=== PATIENT | female | born 1975 ===

== ENCOUNTER 2018-05-13 23:49 | Emergency (ER) | payer BC ==
--- NOTE | 2018-05-14 00:15 | ED ---
General Adult HPI - General Chief complaint: Chest Pain Stated complaint: CHEST PAIN Time Seen by Provider: 05/13/18 23:58 Source: patient, RN notes reviewed, old records reviewed Mode of arrival: wheelchair Limitations: no limitations - History of Present Illness Initial comments: 43-year-old female presents for evaluation of left-sided chest pain. Patient's pain has been present for approximately 12 hours. Pain began on the left lateral chest. She does report some associated dyspnea. Denies central chest pain. No radiating features. Pain is sharp in nature. Pain is worse with breathing. No cough. No fever or chills. No abdominal pain. No nausea vomiting. Patient has no history of CAD, DVT or PE. She is a current smoker. Family history of CAD. - Related Data Home Medications Medication Instructions Recorded Confirmed ALPRAZolam [Xanax] 0.5 mg PO HS PRN 05/13/18 05/13/18 Cetirizine HCl [Zyrtec] 10 mg PO DAILY 05/13/18 05/13/18 PARoxetine HCL [Paxil] 40 mg PO DAILY 05/13/18 05/13/18 Allergies Allergy/AdvReac Type Severity Reaction Status Date / Time No Known Allergies Allergy Verified 05/13/18 23:55 Review of Systems ROS Statement: Those systems with pertinent positive or pertinent negative responses have been documented in the HPI. ROS Other: All systems not noted in ROS Statement are negative. Past Medical History Past Medical History: No Reported History History of Any Multi-Drug Resistant Organisms: None Reported Past Surgical History: No Surgical Hx Reported Past Psychological History: No Psychological Hx Reported Smoking Status: Current every day smoker Past Alcohol Use History: None Reported Past Drug Use History: None Reported General Exam Limitations: no limitations General appearance: alert, in no apparent distress Head exam: Present: atraumatic Eye exam: Present: normal appearance ENT exam: Present: normal exam Neck exam: Present: normal inspection. Absent: tenderness Respiratory exam: Present: normal lung sounds bilaterally. Absent: respiratory distress, wheezes Cardiovascular Exam: Present: regular rate, normal rhythm GI/Abdominal exam: Present: soft. Absent: distended, tenderness Extremities exam: Present: normal inspection, normal capillary refill. Absent: pedal edema, calf tenderness Neurological exam: Present: alert, oriented X3, CN II-XII intact. Absent: motor sensory deficit Psychiatric exam: Present: normal affect, normal mood Skin exam: Present: warm, dry, intact. Absent: cyanosis, diaphoretic Course Vital Signs 05/13/18 05/14/18 05/14/18 23:53 00:05 00:47 Temperature 97.9 F Pulse Rate 100 96 87 Respiratory 20 18 22 Rate Blood Pressure 130/88 131/74 118/83 O2 Sat by Pulse 98 99 100 Oximetry 05/14/18 01:56 Temperature Pulse Rate 83 Respiratory 16 Rate Blood Pressure 108/69 O2 Sat by Pulse 100 Oximetry EKG Findings - EKG Comments: EKG Findings:: EKG:: Normal sinus rhythm, low voltage, no ST segment elevation or depression, rate of 93, MA interval 1:30, QRS duration 76, QTC 457. Medical Decision Making - Medical Decision Making 43-year-old female presenting with lateral chest pain, worse with deep breathing. Patient's pain is not typical of CAD. He has been constant over the past 12 hours. Workup in the emergency department reveals normal CBC, normal CMP, troponin is negative which is reassuring given the time course. Chest x-ray negative for acute cardiopulmonary disease. Patient's pain is pleuritic in nature, CT angiography is obtained to rule out pulmonary embolism. This is negative. These findings are discussed with the patient on reevaluation, at that time she is completely chest pain-free. She is offered observation for further evaluation of her chest but however she declines. She prefers outpatient follow-up. She will return with worsening or changing symptoms. - Lab Data Result diagrams: 05/14/18 00:00 05/14/18 00:00 Lab Results 05/14/18 05/14/18 05/14/18 Range/Units 00:00 00:00 00:00 WBC 9.9 (3.8-10.6) k/uL RBC 4.06 (3.80-5.40) m/uL Hgb 13.2 (11.4-16.0) gm/dL Hct 39.7 (34.0-46.0) % MCV 97.7 (80.0-100.0) fL MCH 32.4 (25.0-35.0) pg MCHC 33.1 (31.0-37.0) g/dL RDW 13.4 (11.5-15.5) % Plt Count 308 (150-450) k/uL Neutrophils % 54 % Lymphocytes % 33 % Monocytes % 8 % Eosinophils % 3 % Basophils % 1 % Neutrophils # 5.3 (1.3-7.7) k/uL Lymphocytes # 3.3 (1.0-4.8) k/uL Monocytes # 0.7 (0-1.0) k/uL Eosinophils # 0.3 (0-0.7) k/uL Basophils # 0.1 (0-0.2) k/uL PT (9.0-12.0) sec INR (<1.2) APTT (22.0-30.0) sec Sodium 143 (137-145) mmol/L Potassium 4.1 (3.5-5.1) mmol/L Chloride 111 H (98-107) mmol/L Carbon Dioxide 22 (22-30) mmol/L Anion Gap 10 mmol/L BUN 8 (7-17) mg/dL Creatinine 0.60 (0.52-1.04) mg/dL Est GFR (CKD-EPI)AfAm >90 (>60 ml/min/1.73 sqM) Est GFR (CKD-EPI)NonAf >90 (>60 ml/min/1.73 sqM) Glucose 86 (74-99) mg/dL Calcium 8.7 (8.4-10.2) mg/dL Magnesium 2.2 (1.6-2.3) mg/dL Total Bilirubin 0.2 (0.2-1.3) mg/dL AST 23 (14-36) U/L ALT 28 (9-52) U/L Alkaline Phosphatase 79 (38-126) U/L Total Creatine Kinase 58 (30-135) U/L CK-MB (CK-2) 0.3 (0.0-2.4) ng/mL CK-MB (CK-2) Rel Index 0.5 Troponin I <0.012 (0.000-0.034) ng/mL NT-Pro-B Natriuret Pep pg/mL Total Protein 7.0 (6.3-8.2) g/dL Albumin 4.0 (3.5-5.0) g/dL Lipase 148 (23-300) U/L HCG, Qual 05/14/18 05/14/18 05/14/18 Range/Units 00:00 00:00 00:00 WBC (3.8-10.6) k/uL RBC (3.80-5.40) m/uL Hgb (11.4-16.0) gm/dL Hct (34.0-46.0) % MCV (80.0-100.0) fL MCH (25.0-35.0) pg MCHC (31.0-37.0) g/dL RDW (11.5-15.5) % Plt Count (150-450) k/uL Neutrophils % % Lymphocytes % % Monocytes % % Eosinophils % % Basophils % % Neutrophils # (1.3-7.7) k/uL Lymphocytes # (1.0-4.8) k/uL Monocytes # (0-1.0) k/uL Eosinophils # (0-0.7) k/uL Basophils # (0-0.2) k/uL PT 9.8 (9.0-12.0) sec INR 1.0 (<1.2) APTT 24.4 (22.0-30.0) sec Sodium (137-145) mmol/L Potassium (3.5-5.1) mmol/L Chloride (98-107) mmol/L Carbon Dioxide (22-30) mmol/L Anion Gap mmol/L BUN (7-17) mg/dL Creatinine (0.52-1.04) mg/dL Est GFR (CKD-EPI)AfAm (>60 ml/min/1.73 sqM) Est GFR (CKD-EPI)NonAf (>60 ml/min/1.73 sqM) Glucose (74-99) mg/dL Calcium (8.4-10.2) mg/dL Magnesium (1.6-2.3) mg/dL Total Bilirubin (0.2-1.3) mg/dL AST (14-36) U/L ALT (9-52) U/L Alkaline Phosphatase (38-126) U/L Total Creatine Kinase (30-135) U/L CK-MB (CK-2) (0.0-2.4) ng/mL CK-MB (CK-2) Rel Index Troponin I (0.000-0.034) ng/mL NT-Pro-B Natriuret Pep 384 pg/mL Total Protein (6.3-8.2) g/dL Albumin (3.5-5.0) g/dL Lipase (23-300) U/L HCG, Qual Not Detected Disposition Clinical Impression: Chest pain Disposition: HOME SELF-CARE Condition: Stable Instructions: Chest Pain (ED) Is patient prescribed a controlled substance at d/c from ED?: No Referrals: Giancarlo Pham MD [Primary Care Provider] - 1-2 days Time of Disposition: 02:05
[2018-05-14 00:36] LABS: Basophils # (A) 0.1 k/uL (0-0.2); Basophils % (A) 1 %; Eosinophils # (A) 0.3 k/uL (0-0.7); Eosinophils % (A) 3 %; HCT 39.7 % (34.0-46.0); HGB 13.2 gm/dL (11.4-16.0); Lymphocytes # (A) 3.3 k/uL (1.0-4.8); Lymphocytes % (A) 33 %; MCH 32.4 pg (25.0-35.0); MCHC 33.1 g/dL (31.0-37.0); MCV 97.7 fL (80.0-100.0); Mean Platelet Volume 7.5; Monocytes # (A) 0.7 k/uL (0-1.0); Monocytes % (A) 8 %; Neutrophils # (A) 5.3 k/uL (1.3-7.7); Neutrophils % (A) 54 %; Platelet Count 308 k/uL (150-450); RBC 4.06 m/uL (3.80-5.40); RDW 13.4 % (11.5-15.5); WBC 9.9 k/uL (3.8-10.6)
[2018-05-14] MEDS ORDERED: KETOROLAC 30 MG/ML 1 ML VIAL IVP STA (00:39)
[2018-05-14 00:41] LABS: Partial Thromboplastin Time 24.4 sec (22.0-30.0); Prothrombin Time 9.8 sec (9.0-12.0)
[2018-05-14 00:45] LABS: ALT 28 U/L (9-52); AST 23 U/L (14-36); Alkaline Phosphatase 79 U/L (38-126); Anion Gap 10 mmol/L; Blood Urea Nitrogen 8 mg/dL (7-17); Calcium 8.7 mg/dL (8.4-10.2); Carbon Dioxide 22 mmol/L (22-30); Chloride 111 mmol/L (98-107); Glucose 86 mg/dL (74-99); Lipase 148 U/L (23-300); Magnesium 2.2 mg/dL (1.6-2.3); Potassium 4.1 mmol/L (3.5-5.1); Sodium 143 mmol/L (137-145); Total Bilirubin 0.2 mg/dL (0.2-1.3)
--- NOTE | 2018-05-14 00:48 | XR ---
EXAMINATION TYPE: XR chest 2V DATE OF EXAM: 05/14/2018 COMPARISON: NONE HISTORY: Chest pain TECHNIQUE: Frontal and lateral views of the chest are obtained. FINDINGS: Heart and mediastinum are normal. Lungs are clear. Diaphragm is normal. Bony thorax appear s normal. IMPRESSION: Normal chest. No change.
[2018-05-14 00:58] LABS: Creatine Kinase 58 U/L (30-135)
[2018-05-14 01:12] LABS: Creatine Kinase MB 0.3 ng/mL (0.0-2.4); Troponin I <0.012 ng/mL (0.000-0.034)
--- NOTE | 2018-05-14 01:54 | CT ---
EXAMINATION TYPE: CT angio chest DATE OF EXAM: 05/14/2018 1:47 AM COMPARISON: None HISTORY: R/O PE, Left side Chest pain CT DLP: 204.10 mGycm Automated exposure control for dose reduction was used. CONTRAST: CTA scan of the thorax is performed with IV Contrast, patient injected with 60 mL of Isovue 370, pulm onary embolism protocol. There are 3-D post processed images.. FINDINGS: Lungs are clear of infiltrate. There is no pleural effusion. There is no pericardial effusion. Heart size is normal. Thoracic aorta appears normal. There is no evidence of aneurysm or dissection. There is normal contrast opacification of the pulmonary arteries. There are no filling defects. There is no mediastinal adenopathy. The bony thorax appears intact. IMPRESSION: NORMAL EXAM. NO EVIDENCE OF PULMONARY EMBOLISM.
[2018-05-14 01:57] VITALS: BP 108/69; PULSE 83; RESP 16
[2018-05-14 02:21] VITALS: TEMP 97.8
== END 2018-05-14 02:20 | disposition home or self-care (01) ==
LOC: SUPCPDRO 23:49 → EC 23:49
DX: R07.9 Chest pain, unspecified (principal); R06.00 Dyspnea, unspecified; F17.200 Nicotine dependence, unspecified, uncomplicated; Z82.49 Family history of ischemic heart disease and other diseases of the circulatory system
CPT/HCPCS: 36415; 93005; 83880; 80053; 82550; 82553; 83690; 83735; 84484; 85025; 85610; 85730; 84703; 71046; 71275; 99285; 96374; J1885; Q9967

== ENCOUNTER → 2019-05-15 | Outpatient (CLI) | payer BC ==
[2019-05-15 11:21] LABS: HCT 47.4 % (34.0-46.0); HGB 15.2 gm/dL (11.4-16.0); MCH 32.4 pg (25.0-35.0); MCHC 32.1 g/dL (31.0-37.0); MCV 101.1 fL (80.0-100.0); Macrocytosis Slight; Mean Platelet Volume 8.7; Platelet Count 273 k/uL (150-450); RBC 4.69 m/uL (3.80-5.40); RDW 14.4 % (11.5-15.5); WBC 9.1 k/uL (3.8-10.6)
[2019-05-15 11:42] LABS: INR 0.9 (<1.2); Prothrombin Time 10.1 sec (9.0-12.0)
[2019-05-15 15:32] LABS: Iron Saturation 37.65 (12.00-45.00)
[2019-05-15 15:52] LABS: Albumin 3.8 g/dL (3.80-4.90); Albumin/Globulin Ratio 1.58 (1.60-3.17); Bilirubin, Conjugated 0.3 mg/dL (0.20-0.40); Bilirubin,Unconjugated 0.5 mg/dL; Globulin 2.4 g/dL (1.6-3.3); Total Bilirubin 0.8 mg/dL (0.2-1.2); Total Protein 6.2 g/dL (6.2-8.2)
[2019-05-15 15:53] LABS: Protein, Total 6.4 g/dL (6.2-8.2)
[2019-05-16 10:24] LABS: Albumin 3.12 g/dL (3.80-4.90); Gamma Globulin 1.19 g/dL (0.70-1.50)
[2019-05-16 11:53] LABS: Ceruloplasmin 38.8 mg/dL (20.0-60.0)
== END | disposition home or self-care (01) ==
LOC: LABWHC1 10:25
PROVIDERS: ATTEND Physician Assistant
DX: R74.8 Abnormal levels of other serum enzymes (principal)
CPT/HCPCS: 36415; 80076; 82103; 82390; 82728; 83516; 83540; 83550; 84165; 85027; 85610; 86038

== ENCOUNTER 2019-08-05 16:57 | Inpatient (IN) | payer BC ==
[2019-08-05] MEDS ORDERED: SODIUM CHLORIDE 0.9% 500 ML 500 ML IV ONE (17:58)
[2019-08-05] MEDS ORDERED: ONDANSETRON 4 MG/2 ML VIAL IVP STA ×2 (17:58→19:07)
[2019-08-05] MEDS ORDERED: LORazepam 2 MG/ML INJ IV STA (17:58)
[2019-08-05] MEDS ORDERED: SODIUM CHLORIDE 0.9% 1,000 ML IV ONE ×2 (17:58→20:52)
--- NOTE | 2019-08-05 18:01 | ED ---
General Adult HPI - General Chief complaint: Abdominal Pain Stated complaint: Stomach pain/vomiting Time Seen by Provider: 08/05/19 17:00 Source: patient, RN notes reviewed, old records reviewed Mode of arrival: ambulatory Limitations: no limitations - History of Present Illness Initial comments: This is a 44-year-old female who presents to the emergency department complaining of abdominal pain in the epigastric region and vomiting since last night at 5:00. Patient said the vomiting started first and then the pain came and the pain is been pretty persistent since per patient denies any other abdominal pain patient denies any chest pain difficult breathing shortest breath per patient denies any fever chills. Patient denies any back pain. Patient denies any dysuria hematuria urinary frequency. Patient denies any diarrhea. Patient also admits that she is a binge drinker. Patient states that she drinks a lot of wine when she does drink. - Related Data Home Medications Medication Instructions Recorded Confirmed ALPRAZolam [Xanax] 0.5 mg PO HS PRN 05/13/18 05/13/18 Cetirizine HCl [Zyrtec] 10 mg PO DAILY 05/13/18 05/13/18 PARoxetine HCL [Paxil] 40 mg PO DAILY 05/13/18 05/13/18 Allergies Allergy/AdvReac Type Severity Reaction Status Date / Time No Known Allergies Allergy Verified 08/05/19 17:01 Review of Systems ROS Statement: Those systems with pertinent positive or pertinent negative responses have been documented in the HPI. ROS Other: All systems not noted in ROS Statement are negative. Past Medical History Past Medical History: No Reported History History of Any Multi-Drug Resistant Organisms: None Reported Past Surgical History: No Surgical Hx Reported Past Psychological History: No Psychological Hx Reported Smoking Status: Current every day smoker Past Alcohol Use History: Occasional Past Drug Use History: None Reported General Exam - General Exam Comments Initial Comments: GENERAL: Patient is well-developed and well-nourished. Patient is nontoxic and well- hydrated and is in mild distress. ENT: Neck is soft and supple. No significant lymphadenopathy is noted. Oropharynx is clear. Dry mucous membranes. Neck has full range of motion without eliciting any pain. EYES: The sclera were anicteric and conjunctiva were pink and moist. Extraocular movements were intact and pupils were equal round and reactive to light. Eyelids were unremarkable. PULMONARY: Unlabored respirations. Good breath sounds bilaterally. No audible rales rhonchi or wheezing was noted. CARDIOVASCULAR: Patient is tachycardic at about 120 beats a minute. ABDOMEN: Epigastric abdominal pain on palpation SKIN: Skin is clear with no lesions or rashes and otherwise unremarkable. NEUROLOGIC: Patient is alert and oriented x3. Cranial nerves II through XII are grossly intact. Motor and sensory are also intact. Normal speech, volume and content. Symmetrical smile. MUSCULOSKELETAL: Normal extremities with adequate strength and full range of motion. No lower extremity swelling or edema. No calf tenderness. LYMPHATICS: No significant lymphadenopathy is noted PSYCHIATRIC: Normal psychiatric evaluation. Limitations: no limitations Course Vital Signs 08/05/19 08/05/19 08/05/19 17:01 18:12 19:00 Temperature 97.4 F L Pulse Rate 127 H 100 117 H Respiratory 18 18 20 Rate Blood Pressure 187/128 207/132 O2 Sat by Pulse 98 97 Oximetry 08/05/19 08/05/19 08/05/19 19:32 19:57 20:38 Temperature Pulse Rate 113 H 95 Respiratory 18 18 Rate Blood Pressure 202/129 192/122 185/135 O2 Sat by Pulse 100 100 Oximetry 08/05/19 08/05/19 08/05/19 20:47 20:57 21:04 Temperature Pulse Rate 100 98 Respiratory 18 18 Rate Blood Pressure 176/116 172/114 154/103 O2 Sat by Pulse 96 97 Oximetry Medical Decision Making - Medical Decision Making KUB shows no acute abnormality. Ultrasound showed no signs of cholecystitis. I gave the patient 20 of hydralazine 10 labetalol and did bring the blood pressure down a little bit. I called Dr. Raya she agreed to admit the patient she wanted hydralazine 20 mg every 4 hours when necessary for blood pressure greater than 180 systolic greater than 110. Dr. Bowman stated she will check in with the patient's blood pressure later this evening on the floor - Lab Data Result diagrams: 08/05/19 17:43 08/05/19 17:43 Lab Results 08/05/19 08/05/19 Range/Units 17:43 17:43 WBC 23.0 H (3.8-10.6) k/uL RBC 5.18 (3.80-5.40) m/uL Hgb 18.1 H (11.4-16.0) gm/dL Hct 53.6 H (34.0-46.0) % MCV 103.6 H (80.0-100.0) fL MCH 34.9 (25.0-35.0) pg MCHC 33.7 (31.0-37.0) g/dL RDW 16.8 H (11.5-15.5) % Plt Count 205 (150-450) k/uL Neutrophils % 95 % Lymphocytes % 2 % Monocytes % 2 % Eosinophils % 0 % Basophils % 0 % Neutrophils # 21.8 H (1.3-7.7) k/uL Lymphocytes # 0.5 L (1.0-4.8) k/uL Monocytes # 0.5 (0-1.0) k/uL Eosinophils # 0.0 (0-0.7) k/uL Basophils # 0.0 (0-0.2) k/uL Anisocytosis Slight Macrocytosis Moderate Sodium 137 (137-145) mmol/L Potassium 4.0 (3.5-5.1) mmol/L Chloride 99 (98-107) mmol/L Carbon Dioxide 16 L (22-30) mmol/L Anion Gap 22 mmol/L BUN 7 (7-17) mg/dL Creatinine 0.71 (0.52-1.04) mg/dL Est GFR (CKD-EPI)AfAm >90 (>60 ml/min/1.73 sqM) Est GFR (CKD-EPI)NonAf >90 (>60 ml/min/1.73 sqM) Glucose 181 H (74-99) mg/dL Calcium 9.4 (8.4-10.2) mg/dL Total Bilirubin 1.3 (0.2-1.3) mg/dL AST 117 H (14-36) U/L ALT 59 H (9-52) U/L Alkaline Phosphatase 174 H (38-126) U/L Total Protein 7.5 (6.3-8.2) g/dL Albumin 4.1 (3.5-5.0) g/dL Amylase 675 H* (30-110) U/L Lipase 9339 H (23-300) U/L Disposition Clinical Impression: Acute pancreatitis, Hypertensive urgency Disposition: ADMITTED IP TO THIS [facility] Time of Disposition: 20:49
[2019-08-05 18:21] LABS: Anisocytosis Slight; Basophils % (A) 0 %; Eosinophils % (A) 0 %; HCT 53.6 % (34.0-46.0); HGB 18.1 gm/dL (11.4-16.0); Lymphocytes # (A) 0.5 k/uL (1.0-4.8); Lymphocytes % (A) 2 %; MCH 34.9 pg (25.0-35.0); MCHC 33.7 g/dL (31.0-37.0); MCV 103.6 fL (80.0-100.0); Macrocytosis Moderate; Mean Platelet Volume 7.9; Monocytes # (A) 0.5 k/uL (0-1.0); Monocytes % (A) 2 %; Neutrophils # (A) 21.8 k/uL (1.3-7.7); Neutrophils % (A) 95 %; Platelet Count 205 k/uL (150-450); RBC 5.18 m/uL (3.80-5.40); RDW 16.8 % (11.5-15.5)
--- NOTE | 2019-08-05 18:22 | XR ---
EXAMINATION TYPE: XR KUB DATE OF EXAM: 08/05/2019 COMPARISON: NONE HISTORY: Pain TECHNIQUE: Single supine KUB image of the abdomen is obtained FINDINGS: Small bowel demonstrates no evidence for dilatation or air fluid levels. Gas and fecal material is seen in non-distended colon. No convincing evidence for pneumoperitoneum. No unusual calcifications. The lung bases are clear. The osseous structures are intact. IMPRESSION: 1. Overall nonobstructive bowel gas pattern.
[2019-08-05 18:28] LABS: ALT 59 U/L (9-52); AST 117 U/L (14-36); African American GFR (CKD) >90 (>60 ml/min/1.73 sqM); Albumin 4.1 g/dL (3.5-5.0); Alkaline Phosphatase 174 U/L (38-126); Anion Gap 22 mmol/L; Blood Urea Nitrogen 7 mg/dL (7-17); Calcium 9.4 mg/dL (8.4-10.2); Carbon Dioxide 16 mmol/L (22-30); Chloride 99 mmol/L (98-107); Glucose 181 mg/dL (74-99); Non-African American GFR(CKD) >90 (>60 ml/min/1.73 sqM); Sodium 137 mmol/L (137-145); Total Bilirubin 1.3 mg/dL (0.2-1.3); Total Protein 7.5 g/dL (6.3-8.2)
[2019-08-05 18:59] LABS: Amylase 675 U/L (30-110)
[2019-08-05] MEDS ORDERED: LABETALOL 5 MG/ML VIAL MDV IVP STA ×2 (19:04→20:59)
[2019-08-05] MEDS ORDERED: HYDROmorphone 1 MG/ML 1 ML SYRINGE IVP STA (19:05)
[2019-08-05] MEDS ORDERED: SODIUM CHLORIDE 0.9% 1,000 ML IV STA (19:05)
[2019-08-05] MEDS ORDERED: hydrALAZINE HCL 20 MG/ML 1 ML VIAL IVP STA ×2 (20:07→20:41)
--- NOTE | 2019-08-05 20:42 | US ---
EXAMINATION TYPE: US gallbladder DATE OF EXAM: 08/05/2019 COMPARISON: NONE CLINICAL HISTORY: Pancreatitis . Pancreatitis. Nausea, diarrhea. EXAM MEASUREMENTS: Liver Length: 15.3 cm Gallbladder Wall: 0.20 cm CBD: 0.44 cm Right Kidney: 9.5 x 4.7 x 3.8 cm Limited due to gas. Pancreas: Limited evaluation. Appears heterogeneous. Liver: Difficult to penetrate. Appears to have an increased echogenicity. Gallbladder: Measures 6.3 cm in length and 3.4 cm in width. Appears anechoic. Folds seen. Evidence for sonographic Hinojosa's sign: no CBD: appears wnl Right Kidney: No hydronephrosis or masses seen IMPRESSION: Hepatic steatosis. Limited evaluation of the pancreas.
[2019-08-05] MEDS ORDERED: HYDROmorphone 0.5 MG/0.5 ML SYRINGE IVP PRN (20:53)
[2019-08-05] MEDS ORDERED: ONDANSETRON 4 MG/2 ML VIAL IVP PRN (20:53)
[2019-08-05] MEDS ORDERED: hydrALAZINE HCL 20 MG/ML 1 ML VIAL IVP PRN (21:00)
[2019-08-05 22:23] VITALS: BP 165/116; PULSE 108; RESP 20; TEMP 98; BMI 21.0
== END 2019-08-05 22:52 | disposition left against medical advice (07) | DRG 440 ==
LOC: EC 16:57 → 3SCARD 20:53
PROVIDERS: ADMIT Family Medicine; ATTEND Family Medicine
DX: K85.90 Acute pancreatitis without necrosis or infection, unspecified (principal); F17.200 Nicotine dependence, unspecified, uncomplicated; Z71.6 Tobacco abuse counseling; Z79.899 Other long term (current) drug therapy; I16.0 Hypertensive urgency
CPT/HCPCS: 36415; 74018; 76705; 80053; 82150; 83690; 85025; 96361; 96374; 96375; 96376; 99285

== ENCOUNTER 2019-08-07 10:08 | Inpatient (IN) | payer BC ==
[2019-08-07] MEDS ORDERED: ONDANSETRON 4 MG/2 ML VIAL IVP STA (10:27)
[2019-08-07] MEDS ORDERED: MORPHINE SULFATE 4 MG/ML SYRINGE IV STA (10:27)
[2019-08-07] MEDS ORDERED: SODIUM CHLORIDE 0.9% 1,000 ML IV STA (10:39)
--- NOTE | 2019-08-07 10:40 | ED ---
General Adult HPI - General Chief complaint: Abdominal Pain Stated complaint: abd pain,vomiting,pancreatitis Time Seen by Provider: 08/07/19 10:19 Source: patient Mode of arrival: ambulatory Limitations: no limitations - History of Present Illness Initial comments: Dictation was produced using [employer] dictation software. please excuse any grammatical, word or spelling errors. Chief Complaint: 44-year-old female presents with abdominal pain. History of Present Illness: She is a 44-year-old female she presents today with abdominal pain. Patient was recently admitted for acute pancreatitis. She had a lipase level of 9000. Patient signed out AGAINST MEDICAL ADVICE because she could not find somebody to watch her little dog. She finally was able to find a deep submergence vehicle crewmember for her pet. She decided come back to the emergency department to be admitted again. Patient states since she signed out AGAINST MEDICAL ADVICE her symptoms have gotten worse. Patient states she's recovering alcoholic. She recently began drinking heavily. Patient has any fever, chills or night sweats. She states pain is located to the entire abdomen worse in the epigastric and suprapubic area. No diarrhea. Patient also feels nauseated. Patient has been eating and drinking at home. The ROS documented in this emergency department record has been reviewed and confirmed by me. Those systems with pertinent positive or negative responses have been documented in the HPI. All other systems are other negative and/or noncontributory. PHYSICAL EXAM: General Impression: Alert and oriented x3, acute distress secondary to pain HEENT: Normocephalic atraumatic, extra-ocular movements intact, pupils equal and reactive to light bilaterally, mucous membranes moist. Cardiovascular: Heart regular rate and rhythm, S1&S2 audible, no murmurs, rubs or gallops Chest: Lungs clear to auscultation bilaterally, no rhonchi, no wheeze, no rales Abdomen: Diffuse abdominal tenderness to palpation Musculoskeletal: Pulses present and equal in all extremities, no peripheral edema Motor: no focal deficits noted Neurological: CN II-XII grossly intact, no focal motor or sensory deficits noted Skin: Intact with no visualized rashes Psych: Normal affect and mood ED course: 44 yo Female presents emergency department for abdominal pain. As upon arrival shows heart rate of 140, pulse vital signs within acceptable limits. Return evaluation obtained. Leukocytosis of 23.5, mild thrombocytopenia 128. Has a macrocytosis. Blood gases shows pH of 7.48, sodium 134, glucose 117. Bilirubin 2.4. Lipase level of 2000 1448. Serum alcohol is negative. Given patient's degree of symptoms we will have patient admitted. Discussed patient case Dr. Bowman who is agreeable for patient care. At this point we will not repeat ultrasound given that she just had one 2 days ago. Patient be admitted with consult to gastroenterology. Tachycardia is improved with intravenous fluids and IV analgesia. EKG interpretation: Ventricular rate 118, sinus tachycardia, CT interval 126, QRS 74, QTC 484. No CT prolongation, no QTC prolongation, no ST or T-wave duran ges noted. Overall, this EKG is unremarkable - Related Data Home Medications Medication Instructions Recorded Confirmed Cetirizine HCl [Zyrtec] 10 mg PO DAILY 05/13/18 08/07/19 PARoxetine HCL [Paxil] 40 mg PO DAILY 05/13/18 08/07/19 ALPRAZolam [Xanax] 1 mg PO DAILY PRN 08/05/19 08/07/19 Ibuprofen 200 mg PO Q6H 08/07/19 08/07/19 Allergies Allergy/AdvReac Type Severity Reaction Status Date / Time No Known Allergies Allergy Verified 08/07/19 11:41 Review of Systems ROS Statement: Those systems with pertinent positive or pertinent negative responses have been documented in the HPI. ROS Other: All systems not noted in ROS Statement are negative. Past Medical History Past Medical History: No Reported History History of Any Multi-Drug Resistant Organisms: None Reported Past Surgical History: No Surgical Hx Reported Past Psychological History: Anxiety Smoking Status: Current every day smoker Past Alcohol Use History: Occasional Past Drug Use History: None Reported General Exam Limitations: no limitations Course Vital Signs 08/07/19 08/07/19 10:15 11:13 Temperature 97.3 F L Pulse Rate 140 H 125 H Respiratory 20 20 Rate Blood Pressure 163/107 179/130 O2 Sat by Pulse 100 96 Oximetry Medical Decision Making - Lab Data Result diagrams: 08/07/19 10:55 08/07/19 10:55 Lab Results 08/07/19 08/07/19 08/07/19 Range/Units 10:55 10:55 10:55 WBC 23.5 H (3.8-10.6) k/uL RBC 4.34 (3.80-5.40) m/uL Hgb 15.6 (11.4-16.0) gm/dL Hct 44.9 (34.0-46.0) % MCV 103.7 H (80.0-100.0) fL MCH 35.9 H (25.0-35.0) pg MCHC 34.6 (31.0-37.0) g/dL RDW 16.9 H (11.5-15.5) % Plt Count 128 L (150-450) k/uL Neutrophils % 90 % Lymphocytes % 4 % Monocytes % 3 % Eosinophils % 1 % Basophils % 1 % Neutrophils # 21.2 H (1.3-7.7) k/uL Lymphocytes # 0.8 L (1.0-4.8) k/uL Monocytes # 0.8 (0-1.0) k/uL Eosinophils # 0.2 (0-0.7) k/uL Basophils # 0.2 (0-0.2) k/uL Anisocytosis Slight Macrocytosis Moderate VBG pH 7.48 H (7.31-7.41) VBG pCO2 34 L (37-51) mmHg VBG HCO3 25 (24-28) mmol/L Sodium 134 L (137-145) mmol/L Potassium 4.1 (3.5-5.1) mmol/L Chloride 100 (98-107) mmol/L Carbon Dioxide 25 (22-30) mmol/L Anion Gap 9 mmol/L BUN 17 (7-17) mg/dL Creatinine 0.76 (0.52-1.04) mg/dL Est GFR (CKD-EPI)AfAm >90 (>60 ml/min/1.73 sqM) Est GFR (CKD-EPI)NonAf >90 (>60 ml/min/1.73 sqM) Glucose 117 H (74-99) mg/dL Calcium 8.4 (8.4-10.2) mg/dL Magnesium 1.6 (1.6-2.3) mg/dL Total Bilirubin 2.4 H (0.2-1.3) mg/dL AST 88 H (14-36) U/L ALT 51 (9-52) U/L Alkaline Phosphatase 98 (38-126) U/L Lactate Dehydrogenase 3051 H (313-618) U/L Total Protein 6.3 (6.3-8.2) g/dL Albumin 3.1 L (3.5-5.0) g/dL Lipase 2448 H (23-300) U/L Serum Alcohol <10 mg/dL Disposition Clinical Impression: Pancreatitis Disposition: ADMITTED IP TO THIS HOSP Condition: Fair Referrals: Ben Gerard NPC [Primary Care Provider] - 1-2 days Decision Time: 12:25
[2019-08-07 11:23] LABS: VBG PH 7.48 (7.31-7.41)
[2019-08-07 11:28] LABS: Anisocytosis Slight; Basophils # (A) 0.2 k/uL (0-0.2); Basophils % (A) 1 %; Eosinophils # (A) 0.2 k/uL (0-0.7); Eosinophils % (A) 1 %; HCT 44.9 % (34.0-46.0); HGB 15.6 gm/dL (11.4-16.0); Lymphocytes # (A) 0.8 k/uL (1.0-4.8); Lymphocytes % (A) 4 %; MCH 35.9 pg (25.0-35.0); MCHC 34.6 g/dL (31.0-37.0); MCV 103.7 fL (80.0-100.0); Macrocytosis Moderate; Mean Platelet Volume 8.6; Monocytes # (A) 0.8 k/uL (0-1.0); Monocytes % (A) 3 %; Neutrophils # (A) 21.2 k/uL (1.3-7.7); Neutrophils % (A) 90 %; Platelet Count 128 k/uL (150-450); RBC 4.34 m/uL (3.80-5.40); RDW 16.9 % (11.5-15.5); WBC 23.5 k/uL (3.8-10.6)
[2019-08-07 11:41] LABS: ALT 51 U/L (9-52); AST 88 U/L (14-36); African American GFR (CKD) >90 (>60 ml/min/1.73 sqM); Albumin 3.1 g/dL (3.5-5.0); Alcohol <10 mg/dL; Alkaline Phosphatase 98 U/L (38-126); Anion Gap 9 mmol/L; Blood Urea Nitrogen 17 mg/dL (7-17); Calcium 8.4 mg/dL (8.4-10.2); Carbon Dioxide 25 mmol/L (22-30); Chloride 100 mmol/L (98-107); Glucose 117 mg/dL (74-99); Magnesium 1.6 mg/dL (1.6-2.3); Non-African American GFR(CKD) >90 (>60 ml/min/1.73 sqM); Potassium 4.1 mmol/L (3.5-5.1); Sodium 134 mmol/L (137-145); Total Bilirubin 2.4 mg/dL (0.2-1.3); Total Protein 6.3 g/dL (6.3-8.2)
--- NOTE | 2019-08-07 11:41 | XR ---
EXAMINATION TYPE: XR abdomen acute w cxr DATE OF EXAM: 08/07/2019 COMPARISON: 08/05/2019 HISTORY: Abdominal pain, nausea and vomiting TECHNIQUE: Supine, upright, and left side down lateral decubitus views of the abdomen are obtained. FINDINGS: There is bilateral consolidation small effusion. No interstitial edema or pneumothorax. Hea rt size is normal. There are some prominent small bowel loops in the mid abdomen. Air-fluid levels are noted. Osseous st ructures intact. No suspicious calcifications. IMPRESSION: 1. Bilateral lower lobe infiltrate and small right effusion. 2. Nonspecific abdomen correlate for ileus, enteritis or partial obstruction.
[2019-08-07 12:10] LABS: LDH 3051 U/L (313-618)
[2019-08-07] MEDS ORDERED: NALOXONE 0.4 MG/ML 1 ML VIAL IV PRN (12:23)
[2019-08-07] MEDS ORDERED: ONDANSETRON 4 MG/2 ML VIAL IVP PRN (12:23)
[2019-08-07] MEDS ORDERED: MORPHINE SULFATE 4 MG/ML SYRINGE IV PRN (12:23)
[2019-08-07] MEDS ORDERED: SODIUM CHLORIDE 0.9% 1,000 ML IV SCH (12:30)
[2019-08-07] MEDS ORDERED: LABETALOL 5 MG/ML VIAL MDV IVP STA (12:41)
[2019-08-07] MEDS ORDERED: HYDROmorphone 1 MG/ML 1 ML SYRINGE IVP PRN (13:05)
[2019-08-07] MEDS: ENALAPRILAT 1.25 MG/ML 1 ML VIAL IVP PRN (14:57)
[2019-08-07] MEDS ORDERED: LORazepam 2 MG/ML INJ IV PRN ×2 (15:02)
[2019-08-07] MEDS ORDERED: THIAMINE 100 MG/ML 2 ML VIAL IM STA (15:02)
[2019-08-07] MEDS: THIAMINE 100 MG TAB PO SCH (15:26)
[2019-08-07] MEDS: SODIUM CHLORIDE 0.9% 1,000 ML IV SCH ×2 (15:43→20:33)
--- NOTE | 2019-08-07 15:49 | P.HPIM ---
<Hannah Aly A - Last Filed: 08/07/19 15:32> History of Present Illness H&P Date: 08/07/19 Chief Complaint: abdominal pain This is a 44-year-old female patient of Juan Gerard NP with past medical history of seasonal ALLERGIES, recurrent depression, generalized anxiety disorder, alcohol abuse. Patient initially presented to [facility] on August 05 with abdominal pain and was diagnosed with pancreatitis but due to dog being home by itself, patient refused to stay. Patient return on August 07. Patient states that she had sudden onset Monday of abdominal pain with vomiting bile. Abdomen is painful across the lowers bilateral sides. She gives history of having alcohol abuse and was sober for 7 years it has been drinking for the past 2 years. She drinks a half to one bottle of wine per day. Her last alcohol intake was on Monday evening. WBC 23.5. LDH 3051, initial lipase 9339 and repeat today is 2448, alcohol level less than 10, total bilirub in 2.4, AST 88, ALT 91, alkaline phosphatase 98, lactic acid 1.5. Patient was made nothing by mouth, started on IV fluids and morphine for pain which is been subtly changed to Dilaudid, Zofran for nausea. Repeat lab work is ordered for the morning. [facility] protocol initiated. Review of Systems Constitutional: Reports anorexia, Reports fatigue, Reports poor appetite, Denies chills, Denies fever, Denies lethargy, Denies malaise Eyes: denies blurred vision, denies pain Ears, nose, mouth and throat: Denies dysphagia, Denies headache, Denies nasal congestion, Denies nasal discharge, Denies sore throat Cardiovascular: Denies chest pain, Denies decreased exercise tolerance, Denies dyspnea on exertion, Denies lightheadedness, Denies shortness of breath, Denies syncope Respiratory: Denies cough, Denies cough with sputum, Denies dyspnea, Denies excessive sputum, Denies hemoptysis, Denies home oxygen, Denies wheezing Gastrointestinal: Reports abdominal pain, Reports loss of appetite, Reports nausea, Reports vomiting, Denies constipation, Denies diarrhea, Denies melena Genitourinary: Denies dysuria, Denies hematuria, Denies urgency, Denies urinary frequency Musculoskeletal: Denies frequent falls, Denies gait dysfunction, Denies muscle weakness, Denies myalgias Integumentary: Denies pruritus, Denies rash, Denies wounds Neurological: Denies change in mentation, Denies change in speech, Denies numbness, Denies weakness Psychiatric: Denies anxiety, Denies depression Endocrine: Denies fatigue, Denies weight change Past Medical History Past Medical History: No Reported History History of Any Multi-Drug Resistant Organisms: None Reported Past Surgical History: No Surgical Hx Reported Past Psychological History: Anxiety, Depression Smoking Status: Current every day smoker Past Alcohol Use History: Daily, Heavy Additional Past Alcohol Use History / Comment(s): Patient drinks 1/2-1 bottle of wine daily. She was alcohol-free for 7 years and starting drinking 2 years ago. She smokes 1PPD since she was 18. She denies and illicit drug use. She is and lives alone. There is a dog in the home. Past Drug Use History: None Reported - Past Family History Father Additional Family Medical History / Comment(s): Father is from [place]. Mother Additional Family Medical History / Comment(s): Mother is alive with history of asthma, pancreatitis, alchohol abuse. Patient does not have any brothers, sisters, children. Medications and Allergies Home Medications Medication Instructions Recorded Confirmed Type PARoxetine HCL [Paxil] 40 mg PO DAILY 05/13/18 08/07/19 History Acamprosate Calcium [Campral] 666 mg PO TID #90 tablet. 08/12/19 Rx Lisinopril [Zestril] 10 mg PO DAILY #30 tab 08/12/19 Rx Nicotine 21Mg/24Hr Patch [Habitrol] 1 patch TRANSDERM DAILY #30 patch 08/12/19 Rx Thiamine [Vitamin B-1] 100 mg PO DAILY #30 tab 08/12/19 Rx Albuterol Sulfate [Proair Hfa] 1 - 2 puff INHALATION Q4HR PRN #1 08/13/19 Rx inhaler Moxifloxacin HCl [Avelox] 400 mg PO DAILY #7 tablet 08/13/19 Rx Allergies Allergy/AdvReac Type Severity Reaction Status Date / Time No Known Allergies Allergy Verified 08/13/19 12:08 Physical Exam Vitals: Vital Signs Temp Pulse Resp BP Pulse Ox 08/07/19 12:30 113 H 18 170/118 96 08/07/19 11:13 125 H 20 179/130 96 11/20/19 10:15 97.3 F L 140 H 20 163/107 100 Intake and Output 08/06/19 08/07/19 08/07/19 22:59 06:59 14:59 Other: Weight 54.431 kg Gen: This is a 44-year-old female. Patient is resting on the ER stretcher and appears to be comfortable and in no acute distress. HEENT: Head is atraumatic, normocephalic. Pupils equal, round. Sclerae is anicteric. NECK: Supple. No JVD. No lymphadenopathy. No thyromegaly. LUNGS: Clear to auscultation. No wheezes or rhonchi. No intercostal retracti ons. HEART: Regular rate and rhythm. No murmur. ABDOMEN: Soft. Bowel sounds are present. No masses. Generalized tenderness. EXTREMITIES: No pedal edema. No calf tenderness. NEUROLOGICAL: Patient is awake, alert and oriented x3. Cranial nerves 2 through 12 are grossly intact. Results CBC & Chem 7: 08/07/19 10:55 08/07/19 10:55 Labs: Abnormal Lab Results - Last 24 Hours (Table) 08/07/19 08/07/19 08/07/19 Range/Units 10:55 10:55 10:55 WBC 23.5 H (3.8-10.6) k/uL MCV 103.7 H (80.0-100.0) fL MCH 35.9 H (25.0-35.0) pg RDW 16.9 H (11.5-15.5) % Plt Count 128 L (150-450) k/uL Neutrophils # 21.2 H (1.3-7.7) k/uL Lymphocytes # 0.8 L (1.0-4.8) k/uL VBG pH 7.48 H (7.31-7.41) VBG pCO2 34 L (37-51) mmHg Sodium 134 L (137-145) mmol/L Glucose 117 H (74-99) mg/dL Total Bilirubin 2.4 H (0.2-1.3) mg/dL AST 88 H (14-36) U/L Lactate Dehydrogenase 3051 H (313-618) U/L Albumin 3.1 L (3.5-5.0) g/dL Lipase 2448 H (23-300) U/L Assessment and Plan Plan: 1. Acute pancreatitis with abdominal pain, nausea and vomiting secondary to alcohol abuse. Continue IV fluids, nothing by mouth status. Repeat lipase and lab work in the morning. Continue Dilaudid for pain control, Zofran for an nausea. 2. Hypertensive emergency. Patient received labetalol in the emergency center. Start Vasotec 1.25 mg IV push every 6 hours as needed for systolic blood pressure greater than 160. 3. Alcohol abuse. [facility] protocol initiated, social work consult. Continue IV fluids, thiamine, multivitamins. 4. Elevated LDH of unclear etiology. Recheck in the morning. 5. Elevated liver function tests secondary to alcohol abuse. 6. GI prophylaxis. IV Pepcid every 12 hours. 7. DVT prophylaxis. Lovenox. 8. Tobacco use and dependence. Nicotine patch. Patient will be admitted to the hospital for a minimum of 2 night stay. Discharge plan: home Impression and plan of care have been directed as dictated by the signing physician. Hannah Aly nurse practitioner acting as scribe for signing physician. <Deborah Bowman - Last Filed: 08/19/19 10:45> Results CBC & Chem 7: 08/12/19 10:53 08/12/19 10:53
[2019-08-07] MEDS: HYDROmorphone 1 MG/ML 1 ML SYRINGE IVP PRN ×2 (16:52→21:25)
[2019-08-07] MEDS: NICOTINE 21MG/24HR PATCH TRANSDERM SCH (16:52)
--- NOTE | 2019-08-07 16:57 | CONS ---
CONSULTATION DATE OF DICTATION: 08/07/2019 REASON FOR CONSULTATION: Acute pancreatitis. HISTORY OF PRESENT ILLNESS: The patient is a 44-year-old pleasant white female with history of alcohol abuse for the last 20 years' duration. She was admitted to the hospital with acute pancreatitis. She came to the emergency room 2 days ago with acute onset of severe epigastric pain associated with nausea and vomiting and was noted to have elevated amylase and lipase consistent with acute pancreatitis. Her lipase was more than 9,000 at that time. The patient signed out AGAINST MEDICAL ADVICE because she had to take care of her pet at home. She continued to have worsening abdominal pain and hence came back to the emergency room. Repeat labs once again showed elevated amylase and lipase and she was admitted to the hospital for management of acute pancreatitis. The patient never had prior history of pancreatitis. She drinks at least a bottle of wine every day for the last 20 years, but she was sober for 7 years in between. Her last alcohol drink was on Monday. She reports no fever, chills, night sweats. PAST MEDICAL HISTORY: 1. Heavy alcohol abuse. 2. Allergies. 3. Anxiety. 4. Depression. MEDICATIONS: Medications at home include: 1. Xanax. 2. Paxil. 3. Zyrtec. 4. Ibuprofen. ALLERGIES: NONE. SOCIAL HISTORY: Chronic smoker. Alcohol use as mentioned above. FAMILY HISTORY: Unremarkable. REVIEW OF SYSTEMS: CARDIOPULMONARY: No chest pain or shortness of breath. GENITOURINARY: No dysuria or hematuria. MUSCULOSKELETAL: Unremarkable. SKIN: Unremarkable. ENDOCRINE: Unremarkable. PSYCHIATRIC: Unremarkable other than anxiety and depression. ENT/VISION: Unremarkable. CONSTITUTIONAL: No recent weight loss. No fever, chills, night sweats. HEMATOLOGY: Unremarkable. PHYSICAL EXAMINATION: She appears comfortable. No apparent distress. VITAL SIGNS: Stable. Blood pressure 161/105, pulse rate 115, temperature 98.5. HEENT examination unremarkable. Conjunctivae pink. Sclerae anicteric. Oral cavity no lesions. NECK: No JVD or lymph node enlargement. CHEST: Clear to auscultation. HEART: Regular rate and rhythm. ABDOMEN: Soft. Bowel sounds are positive. No organomegaly. There was mild tenderness in the epigastric area. EXTREMITIES: No pedal edema. SKIN: No rashes. NEUROLOGIC: Alert and oriented x3. No focal deficits. LABS: Labs done at the time of admission to the hospital showed WBC 23.5, hemoglobin 15.6, platelets 128. MCV 103.7. Lipase is 2448. Two days ago lipase was 9339. AST and ALT are 88 and 51, respectively. Alkaline phosphatase normal. Bilirubin is 2.4. Serum alcohol less than 10. IMAGING: Ultrasound of abdomen done 2 days ago showed hepatic steatosis but no gallstones. IMPRESSION: 1. This lady presented to the hospital with acute onset of severe epigastric pain for the last 3 days' duration associated with nausea, vomiting, noted to have elevated lipase consistent with acute pancreatitis. Most likely we are dealing with alcohol- related pancreatitis at this time. She has heavy alcohol abuse for the last 20 years and the last alcohol intake was on Monday. 2. Elevated liver function tests with AST more than ALT and slight elevation of bilirubin at 2.4, all consistent with chronic alcoholic liver disease. 3. Hepatic steatosis related to alcohol use. 4. Anxiety and depression. 5. Leukocytosis, probably related to acute pancreatitis. RECOMMENDATIONS: 1. Aggressive IV hydration. 2. Keep her n.p.o. except ice chips. 3. Pain medications as needed. 4. Repeat labs in the morning. 5. I had a lengthy discussion with the patient regarding abstinence from alcohol. Thank you for this consultation. Will follow with you closely during her hospital stay. GENESIS / JERELN: [id number] /
[2019-08-07] MEDS: FAMOTIDINE 20 MG/2 ML VIAL IV SCH (20:25)
[2019-08-08] MEDS: SODIUM CHLORIDE 0.9% 1,000 ML IV SCH ×4 (00:03→23:08)
[2019-08-08] MEDS: HYDROmorphone 1 MG/ML 1 ML SYRINGE IVP PRN ×5 (01:27→18:48)
[2019-08-08] MEDS: MULTIVITAMINS, THERA 1 EACH TAB PO SCH (07:05)
[2019-08-08] MEDS: NICOTINE 21MG/24HR PATCH TRANSDERM SCH (07:06)
[2019-08-08] MEDS: LORazepam 2 MG/ML INJ IV PRN (07:06)
[2019-08-08] MEDS: ENOXAPARIN 40 MG/0.4 ML SYRINGE SQ SCH (07:06)
[2019-08-08] MEDS: FAMOTIDINE 20 MG/2 ML VIAL IV SCH ×2 (07:06→21:02)
[2019-08-08] MEDS: THIAMINE 100 MG TAB PO SCH ×2 (07:08→17:14)
[2019-08-08 08:51] LABS: Anisocytosis Slight; HCT 37.1 % (34.0-46.0); MCHC 33.2 g/dL (31.0-37.0); MCV 108.5 fL (80.0-100.0); Macrocytosis Marked; Mean Platelet Volume 8.7; Platelet Count 120 k/uL (150-450); RBC 3.42 m/uL (3.80-5.40); WBC 16.5 k/uL (3.8-10.6)
[2019-08-08 09:04] LABS: ALT 40 U/L (9-52); AST 48 U/L (14-36); African American GFR (CKD) >90 (>60 ml/min/1.73 sqM); Albumin 2.4 g/dL (3.5-5.0); Alkaline Phosphatase 86 U/L (38-126); Anion Gap 6 mmol/L; Blood Urea Nitrogen 11 mg/dL (7-17); Calcium 7.6 mg/dL (8.4-10.2); Carbon Dioxide 26 mmol/L (22-30); Chloride 105 mmol/L (98-107); Glucose 57 mg/dL (74-99); Non-African American GFR(CKD) >90 (>60 ml/min/1.73 sqM); Potassium 3.7 mmol/L (3.5-5.1); Sodium 137 mmol/L (137-145); Total Bilirubin 1.6 mg/dL (0.2-1.3)
[2019-08-08 09:05] LABS: HGB 12.3 gm/dL (11.4-16.0)
[2019-08-08 09:23] LABS: LDH 1970 U/L (313-618)
[2019-08-08 10:40] VITALS: BMI 21.2
[2019-08-08] MEDS ORDERED: NALTREXONE HCL 50 MG TAB PO SCH ×2 (11:45→12:45)
[2019-08-08] MEDS: LISINOPRIL 10 MG TAB PO SCH (11:54)
[2019-08-08] MEDS: traMADol 50 MG TAB PO PRN ×2 (12:36→21:26)
[2019-08-08] MEDS: ACAMPROSATE CALCIUM 333 MG TABLET.DR PO SCH ×2 (13:58→21:02)
[2019-08-08] MEDS: ENALAPRILAT 1.25 MG/ML 1 ML VIAL IVP PRN ×2 (14:34→21:36)
--- NOTE | 2019-08-08 14:52 | P.PN ---
Subjective Progress Note Date: 08/08/19 This is a 44-year-old female patient of Juan Gerard NP with past medical history of seasonal ALLERGIES, recurrent depression, generalized anxiety disorder, alcohol abuse. Patient initially presented to [facility] on August 05 with abdominal pain and was diagnosed with pancreatitis but due to dog being home by itself, patient refused to stay. Patient return on August 07. Patient states that she had sudden onset Monday of abdominal pain with vomiting bile. Abdomen is painful across the lowers bilateral sides. She gives history of having alcohol abuse and was sober for 7 years it has been drinking for the past 2 years. She drinks a half to one bottle of wine per day. Her last alcohol intake was on Monday evening. WBC 23.5. LDH 3051, initial lipase 9339 and repeat today is 2448, alcohol level less than 10, total bilirubin 2.4, AST 88, ALT 91, alkaline phosphatase 98, lactic acid 1.5. Patient was made nothing by mouth, started on IV fluids and morphine for pain which is been subtly changed to Dilaudid, Zofran for nausea. Repeat lab work is ordered for the morning. [facility] protocol initiated. 08/08: Patient states the nausea has resolved but she continues to have significant pain. We'll plan to start transitioning to oral tramadol. Diet will be slowly advanced today for clear liquid and full liquid this evening. IV fluids will be decreased 125 mL per hour. Patient is requesting Antabuse but we will start her on Campral 666 mg 3 times daily. Blood pressure remains elevated and lisinopril 10 mg daily started. Patient still has Vasotec in place for systolic blood pressure greater than 160. Repeat lab work reveals white count of 16.5, blood sugar 57, LDH 1970, lipase 683. Total bilirubin 1.6, AST 48, ALT 40, alkaline phosphatase 86. She has been afebrile, blood pressure 147/99, heart rate 113, pulse ox 95% on room air. Anticipate probable discharge home tomorrow. Review of Systems Constitutional: Reports anorexia, Reports fatigue, Reports poor appetite, Denies chills, Denies fever, Denies lethargy, Denies malaise Eyes: denies blurred vision, denies pain Ears, nose, mouth and throat: Denies dysphagia, Denies headache, Denies nasal congestion, Denies nasal discharge, Denies sore throat Cardiovascular: Denies chest pain, Denies decreased exercise tolerance, Denies dyspnea on exertion, Denies lightheadedness, Denies shortness of breath, Denies syncope Respiratory: Denies cough, Denies cough with sputum, Denies dyspnea, Denies excessive sputum, Denies hemoptysis, Denies home oxygen, Denies wheezing Gastrointestinal: Reports abdominal pain, Reports loss of appetite, denies nausea, denies vomiting, Denies constipation, Denies diarrhea, Denies melena Genitourinary: Denies dysuria, Denies hematuria, Denies urgency, Denies urinary frequency Musculoskeletal: Denies frequent falls, Denies gait dysfunction, Denies muscle weakness, Denies myalgias Integumentary: Denies pruritus, Denies rash, Denies wounds Neurological: Denies change in mentation, Denies change in speech, Denies numbness, Denies weakness Psychiatric: Denies anxiety, Denies depression Endocrine: Denies fatigue, Denies weight change Objective - Vital Signs Vital signs: Vital Signs Temp 98.8 F 08/08/19 04:36 Pulse 113 H 08/08/19 04:36 Resp 16 08/08/19 04:36 BP 147/99 08/08/19 04:36 Pulse Ox 95 08/08/19 04:36 Intake & Output 08/07/19 08/08/19 08/08/19 18:59 06:59 18:59 Weight 54.431 kg Other: Voiding Method Toilet Toilet Toilet # Voids 4 - Exam Gen: This is a 44-year-old female. Patient is resting in bed and appears to be comfortable and in no acute distress. HEENT: Head is atraumatic, normocephalic. Pupils equal, round. Sclerae is anicteric. NECK: Supple. No JVD. No lymphadenopathy. No thyromegaly. LUNGS: Clear to auscultation. No wheezes or rhonchi. No intercostal retractions. HEART: Regular rate and rhythm. No murmur. ABDOMEN: Soft. Bowel sounds are present. No masses. Generalized tenderness. EXTREMITIES: No pedal edema. No calf tenderness. NEUROLOGICAL: Patient is awake, alert and oriented x3. Cranial nerves 2 through 12 are grossly intact. - Labs CBC & Chem 7: 08/08/19 07:56 08/08/19 07:56 Labs: Abnormal Lab Results - Last 24 Hours (Table) 08/07/19 08/07/19 08/07/19 Range/Units 10:55 10:55 10:55 WBC 23.5 H (3.8-10.6) k/uL RBC (3.80-5.40) m/uL MCV 103.7 H (80.0-100.0) fL MCH 35.9 H (25.0-35.0) pg RDW 16.9 H (11.5-15.5) % Plt Count 128 L (150-450) k/uL Neutrophils # 21.2 H (1.3-7.7) k/uL Lymphocytes # 0.8 L (1.0-4.8) k/uL Macrocytosis VBG pH 7.48 H (7.31-7.41) VBG pCO2 34 L (37-51) mmHg Sodium 134 L (137-145) mmol/L Glucose 117 H (74-99) mg/dL Calcium (8.4-10.2) mg/dL Total Bilirubin 2.4 H (0.2-1.3) mg/dL AST 88 H (14-36) U/L Lactate Dehydrogenase 3051 H (313-618) U/L Total Protein (6.3-8.2) g/dL Albumin 3.1 L (3.5-5.0) g/dL Lipase 2448 H (23-300) U/L 08/08/19 08/08/19 Range/Units 07:56 07:56 WBC 16.5 H (3.8-10.6) k/uL RBC 3.42 L (3.80-5.40) m/uL MCV 108.5 H (80.0-100.0) fL MCH 36.0 H (25.0-35.0) pg RDW 17.0 H (11.5-15.5) % Plt Count 120 L (150-450) k/uL Neutrophils # (1.3-7.7) k/uL Lymphocytes # (1.0-4.8) k/uL Macrocytosis Marked A VBG pH (7.31-7.41) VBG pCO2 (37-51) mmHg Sodium (137-145) mmol/L Glucose 57 L (74-99) mg/dL Calcium 7.6 L (8.4-10.2) mg/dL Total Bilirubin 1.6 H (0.2-1.3) mg/dL AST 48 H (14-36) U/L Lactate Dehydrogenase 1970 H (313-618) U/L Total Protein 5.0 L (6.3-8.2) g/dL Albumin 2.4 L (3.5-5.0) g/dL Lipase 683 H (23-300) U/L Assessment and Plan Plan: 1. Acute pancreatitis with abdominal pain, nausea and vomiting secondary to alcohol abuse. Continue IV fluids decreased. Diet advanced to clear liquids and full liquids for supper. Repeat lipase and lab work in the morning. Continue Dilaudid for pain control and add tramadol to transition to oral, Zofran for an nausea. 2. Hypertensive emergency. Patient received labetalol in the emergency center. Start Vasotec 1.25 mg IV push every 6 hours as needed for systolic blood pressure greater than 160. Patient started on lisinopril 10 mg daily. 3. Alcohol abuse. [facility] protocol initiated, social work consult. Continue IV fluids, thiamine, multivitamins. 4. Elevated LDH of unclear etiology. Recheck in the morning. 5. Elevated liver function tests secondary to alcohol abuse. 6. GI prophylaxis. IV Pepcid every 12 hours. 7. DVT prophylaxis. Lovenox. 8. Tobacco use and dependence. Nicotine patch. Discharge plan: home tomorrow Impression and plan of care have been directed as dictated by the signing physician. Hannah Aly nurse practitioner acting as scribe for signing physician.
--- NOTE | 2019-08-08 18:00 | PN ---
PROGRESS NOTE DATE OF DICTATION: 08/08/2019 The patient is a 44-year-old pleasant white female with history of chronic alcohol abuse, admitted to the hospital with acute pancreatitis. She is feeling better today. Still has abdominal pain. No further episodes of nausea, vomiting. She overall feels weak and tired. No fever, chills, night sweats. PHYSICAL EXAMINATION: Blood pressure is 147/91, pulse rate 120, and afebrile. HEENT examination unremarkable. Conjunctivae pink. Sclerae anicteric. Oral cavity no lesions. NECK: No JVD or lymph node enlargement. CHEST: Clear to auscultation. HEART: Regular rate and rhythm. ABDOMEN: Soft. It was tender in the epigastric area but no bowel sounds are positive. EXTREMITIES: No pedal edema. SKIN: No rashes. NEUROLOGIC: Alert and oriented x3. No focal deficits. LABS: Labs done from today show WBC 16.5, hemoglobin 12.3, platelets 120,000. BUN is 1.6, AST 48, ALT 40. Lipase is down to 683. IMPRESSION: 1. Acute pancreatitis related to alcohol abuse, this being her first episode. Gradually improving. 2. Leukocytosis, improving, probably related to acute pancreatitis. 3. Heavy alcohol abuse; quit drinking 5 days ago. 4. Elevated liver function tests secondary to chronic alcoholic liver disease. RECOMMENDATIONS: 1. Continue with aggressive IV hydration. 2. Will start her on a clear liquid diet. 3. Repeat labs in the morning. 4. Abstinence from alcohol. Will follow the patient closely during her hospital stay. MMODL / IJN: [id number] /
[2019-08-08] MEDS: BENZONATATE 100 MG CAP PO PRN ×2 (18:23→23:00)
[2019-08-08] MEDS: ACETAMINOPHEN TAB 325 MG TAB PO PRN (21:37)
[2019-08-08] MEDS ORDERED: FUROSEMIDE 10 MG/ML 4 ML VIAL IV STA (22:33)
[2019-08-08] MEDS ORDERED: POTASSIUM CHLORIDE 20 MEQ in WATER FOR INJECTION 1 100ML.BAG IVPB STA (22:40)
[2019-08-08] MEDS: LEVOFLOXACIN 500MG-D5W PMX 500 MG in DEXTROSE/WATER 1 100ML.BAG IVPB SCH (23:19)
--- NOTE | 2019-08-08 23:19 | XR ---
EXAMINATION TYPE: XR chest 1V portable DATE OF EXAM: 08/08/2019 COMPARISON: 05/14/2018 and yesterday HISTORY: Respiratory distress TECHNIQUE: Single frontal view of the chest is obtained. FINDINGS: There is moderately severe pulmonary edema. There is blunting of costophrenic angles. IMPRESSION: Significant increased pulmonary edema compared to yesterday and consistent with RDS. The re are probably increasing pleural effusions also.
[2019-08-09] MEDS ORDERED: ENOXAPARIN 80 MG/0.8 ML SYRINGE SQ STA (00:26)
--- NOTE | 2019-08-09 01:49 | CT ---
EXAMINATION TYPE: CT angio chest DATE OF EXAM: 08/09/2019 1:29 AM COMPARISON: 05/14/2018 HISTORY: elevated CT DLP: 175.60 mGycm Automated exposure control for dose reduction was used. CONTRAST: CTA scan of the thorax is performed with IV Contrast, patient injected with 55 mL of Isovue 370, pulm onary embolism protocol. . There are 3-D post processed images. FINDINGS: There are extensive airspace infiltrates throughout the lungs. There are bilateral pleural effusions. Heart size is normal. There is extensive infiltrate and atelectasis at the lung bases. There is some fatty infiltration of the liver. There is extensive fat stranding and fluid involving the retroperit oneum along the entire pancreas. Thoracic aorta is intact. There is no aneurysm or dissection. There is normal contrast opacification of the pulmonary arteries. I see no filling defects. The bony thorax is intact. IMPRESSION: NO EVIDENCE OF PULMONARY EMBOLISM. EXTENSIVE PULMONARY INFILTRATES WITH PLEURAL FLUID AND INFILTRATE AND ATELECTASIS AT THE LUNG BASES ARE SIGNIFICANT CHANGE COMPARED TO OLD EXAM. THIS COULD RELATE TO R DS. THERE IS EXTENSIVE INFLAMMATORY CHANGES AND FLUID INVOLVING THE PANCREAS CONSISTENT WITH PANCREATITIS THAT IS A CHANGE COMPARED TO OLD EXAM.
[2019-08-09] MEDS: ACETAMINOPHEN TAB 325 MG TAB PO PRN ×2 (03:16→12:57)
[2019-08-09] MEDS: PIPERACILLIN-TAZOBACTAM 3.375 GM in SODIUM CHLORIDE 0.9% 100 ML IVPB SCH ×3 (03:44→16:06)
[2019-08-09] MEDS: SODIUM CHLORIDE 0.9% 1,000 ML IV SCH (03:59)
[2019-08-09] MEDS: NICOTINE 21MG/24HR PATCH TRANSDERM SCH (07:55)
[2019-08-09] MEDS: ACAMPROSATE CALCIUM 333 MG TABLET.DR PO SCH ×3 (07:55→20:41)
[2019-08-09] MEDS: ENOXAPARIN 40 MG/0.4 ML SYRINGE SQ SCH (07:56)
[2019-08-09] MEDS: FAMOTIDINE 20 MG/2 ML VIAL IV SCH ×2 (07:56→20:41)
[2019-08-09] MEDS: traMADol 50 MG TAB PO PRN ×2 (07:57→16:13)
[2019-08-09] MEDS: THIAMINE 100 MG TAB PO SCH ×2 (07:57→16:07)
[2019-08-09] MEDS: LISINOPRIL 10 MG TAB PO SCH (07:57)
[2019-08-09] MEDS: MULTIVITAMINS, THERA 1 EACH TAB PO SCH (07:57)
[2019-08-09] MEDS: BENZONATATE 100 MG CAP PO PRN (07:58)
[2019-08-09 09:10] LABS: Anisocytosis Slight; HCT 37.1 % (34.0-46.0); HGB 12.2 gm/dL (11.4-16.0); MCH 35.7 pg (25.0-35.0); MCV 108.2 fL (80.0-100.0); Macrocytosis Marked; Mean Platelet Volume 7.7; RBC 3.43 m/uL (3.80-5.40); WBC 22.3 k/uL (3.8-10.6)
[2019-08-09 09:13] LABS: Platelet Count 194 k/uL (150-450)
[2019-08-09 09:33] LABS: ALT 59 U/L (9-52); AST 107 U/L (14-36); African American GFR (CKD) >90 (>60 ml/min/1.73 sqM); Albumin 2.6 g/dL (3.5-5.0); Alkaline Phosphatase 135 U/L (38-126); Anion Gap 9 mmol/L; Blood Urea Nitrogen 7 mg/dL (7-17); Calcium 7.9 mg/dL (8.4-10.2); Carbon Dioxide 24 mmol/L (22-30); Chloride 104 mmol/L (98-107); Cholesterol 87 mg/dL (<200); Glucose 78 mg/dL (74-99); HDL Cholesterol 22 mg/dL (40-60); LDL Cholesterol,Calculated 44 mg/dL (0-99); Non-African American GFR(CKD) >90 (>60 ml/min/1.73 sqM); Potassium 3.5 mmol/L (3.5-5.1); Sodium 137 mmol/L (137-145); Total Bilirubin 2.1 mg/dL (0.2-1.3); Total Protein 5.3 g/dL (6.3-8.2); Triglycerides 105 mg/dL (<150)
[2019-08-09 09:54] LABS: LDH 2032 U/L (313-618)
[2019-08-09] MEDS: FUROSEMIDE 10 MG/ML 4 ML VIAL IV SCH ×2 (12:57→16:06)
--- NOTE | 2019-08-09 14:11 | P.PN ---
Subjective Progress Note Date: 08/09/19 This is a 44-year-old female patient of Juan Gerard NP with past medical history of seasonal ALLERGIES, recurrent depression, generalized anxiety disorder, alcohol abuse. Patient initially presented to [facility] on August 05 with abdominal pain and was diagnosed with pancreatitis but due to dog being home by itself, patient refused to stay. Patient return on August 07. Patient states that she had sudden onset Monday of abdominal pain with vomiting bile. Abdomen is painful across the lowers bilateral sides. She gives history of having alcohol abuse and was sober for 7 years it has been drinking for the past 2 years. She drinks a half to one bottle of wine per day. Her last alcohol intake was on Monday evening. WBC 23.5. LDH 3051, initial lipase 9339 and repeat today is 2448, alcohol level less than 10, total bilirubin 2.4, AST 88, ALT 91, alkaline phosphatase 98, lactic acid 1.5. Patient was made nothing by mouth, started on IV fluids and morphine for pain which is been subtly changed to Dilaudid, Zofran for nausea. Repeat lab work is ordered for the morning. [facility] protocol initiated. 08/08: Patient states the nausea has resolved but she continues to have significant pain. We'll plan to start transitioning to oral tramadol. Diet will be slowly advanced today for clear liquid and full liquid this evening. IV fluids will be decreased 125 mL per hour. Patient is requesting Antabuse but we will start her on Campral 666 mg 3 times daily. Blood pressure remains elevated and lisinopril 10 mg daily started. Patient still has Vasotec in place for systolic blood pressure greater than 160. Repeat lab work reveals white count of 16.5, blood sugar 57, LDH 1970, lipase 683. Total bilirubin 1.6, AST 48, ALT 40, alkaline phosphatase 86. She has been afebrile, blood pressure 147/99, heart rate 113, pulse ox 95% on room air. Anticipate probable discharge home tomorrow. 08/09: A-Team was called last evening. Pateint developed temp 100.5 along with tachycardia up to 139 bpm and hypoxia with pulse ox of 84% on 5 L nasal cannula. Patient was started on Zosyn and Levaquin. Patient was also placed on high flow nasal cannula. Chest x-ray reveals significant increased pulmonary edema compared to yesterday and consistent with RDS. There are probably increasing pleural effusions. CTA of the chest showed no evidence of pulmonary embolism. Extensive pulmonary infiltrates with pleural fluid and infiltrate and atelectasis at the lung bases are significant change from old exam. This could relate to RDS. There is extensive inflammatory changes and fluid involving the pancreas consistent with pancreatitis. Patient was given 1 dose of IV Lasix 40 mg. A consult has been added for pulmonary medicine with Dr. DIANN Calles. Patient states that she is feeling much better now, her breathing is at her baseline with no shortness of breath. She denies having any abdominal pain. Pro- calcitonin will be added as well as Lasix IV 40 mg 3 times daily. Diet will be advanced. Probable discharge tomorrow. Review of Systems Constitutional: Reports anorexia, Reports fatigue, Reports poor appetite, Denies chills, Denies fever, Denies lethargy, Denies malaise Eyes: denies blurred vision, denies pain Ears, nose, mouth and throat: Denies dysphagia, Denies headache, Denies nasal congestion, Denies nasal discharge, Denies sore throat Cardiovascular: Denies chest pain, Denies decreased exercise tolerance, Denies dyspnea on exertion, Denies lightheadedness, Denies shortness of breath, Denies syncope Respiratory: Denies cough, Denies cough with sputum, Denies dyspnea, Denies excessive sputum, Denies hemoptysis, Denies home oxygen, Denies wheezing Gastrointestinal: Denies abdominal pain, Reports loss of appetite, denies nausea, denies vomiting, Denies constipation, Denies diarrhea, Denies melena Genitourinary: Denies dysuria, Denies hematuria, Denies urgency, Denies urinary frequency Musculoskeletal: Denies frequent falls, Denies gait dysfunction, Denies muscle weakness, Denies myalgias Integumentary: Denies pruritus, Denies rash, Denies wounds Neurological: Denies change in mentation, Denies change in speech, Denies numbness, Denies weakness Psychiatric: Denies anxiety, Denies depression Endocrine: Denies fatigue, Denies weight change Objective - Vital Signs Vital signs: Vital Signs Temp 98.7 F 08/09/19 05:15 Pulse 110 H 08/09/19 08:00 Resp 16 08/09/19 09:46 BP 144/95 08/09/19 05:15 Pulse Ox 72 L 11/22/19 09:46 Intake & Output 08/08/19 08/09/19 08/09/19 18:59 06:59 18:59 Weight 54.431 kg Other: Voiding Method Toilet Toilet Toilet # Voids 2 4 - Exam Gen: This is a 44-year-old female. Patient is resting in bed and appears to be comfortable and in no acute distress. HEENT: Head is atraumatic, normocephalic. Pupils equal, round. Sclerae is anicteric. NECK: Supple. No JVD. No lymphadenopathy. No thyromegaly. LUNGS: Clear to auscultation. No wheezes or rhonchi. No intercostal retractions. No accessory muscle usage. HEART: Regular rate and rhythm. No murmur. ABDOMEN: Soft. Bowel sounds are present. No masses. No tenderness. EXTREMITIES: No pedal edema. No calf tenderness. NEUROLOGICAL: Patient is awake, alert and oriented x3. Cranial nerves 2 through 12 are grossly intact. - Labs CBC & Chem 7: 08/09/19 07:20 08/09/19 07:20 Labs: Abnormal Lab Results - Last 24 Hours (Table) 08/08/19 08/09/19 Range/Units 23:11 07:20 WBC 22.3 H (3.8-10.6) k/uL RBC 3.43 L (3.80-5.40) m/uL MCV 108.2 H (80.0-100.0) fL MCH 35.7 H (25.0-35.0) pg RDW 17.0 H (11.5-15.5) % Macrocytosis Marked A D-Dimer 10.51 H (<0.60) mg/L FEU Assessment and Plan Plan: 1. Acute pancreatitis with abdominal pain, nausea and vomiting secondary to alcohol abuse. Continue IV fluids discontinued. Diet full liquids and advance to low fat. Dilaudid discontinued. Continue Tylenol or tramadol for pain. 2. Hypertensive emergency. Patient received labetalol in the emergency center. Start Vasotec 1.25 mg IV push every 6 hours as needed for systolic blood pressure greater than 160. Patient started on lisinopril 10 mg daily. 3. Alcohol abuse. [facility] protocol initiated, social work consult. Continue IV fluids, thiamine, multivitamins. 4. Elevated LDH of unclear etiology. Recheck in the morning. 5. Elevated liver function tests secondary to alcohol abuse. 6. GI prophylaxis. IV Pepcid every 12 hours. 7. DVT prophylaxis. Lovenox. 8. Tobacco use and dependence. Nicotine patch. 9. Acute hypoxic respiratory failure secondary to fluid overload. Patient is status post 1 dose of IV Lasix, started on IV Levaquin and Zosyn, consult with Dr. DAINN Calles area and chest x-ray and CTA of the chest as above. Pulmonary embolism has been ruled out. Pro-calcitonin, IV Lasix 40 mg every 8 hours for 3 doses. Discharge plan: home on Monday Impression and plan of care have been directed as dictated by the signing physician. Hannah Aly nurse practitioner acting as scribe for signing physician.
--- NOTE | 2019-08-09 16:08 | CONS ---
CONSULTATION DATE OF SERVICE: 08/09/2019 HISTORY OF PRESENT ILLNESS: Patient is a 44-year-old female who started to experience abdominal pain this past Monday with vomiting and thought she had a flu bug. The patient says the abdominal pain and vomiting continued. Subsequently patient came to the ER, was evaluated, found to have pancreatitis and discharged home to take care of things that had to be done at home with her dog and then came back in to the ER and was admitted for pancreatitis. Yesterday the patient started to require a significant amount of oxygen to maintain saturations greater than 92% and we were consulted for hypoxemia. The patient does admit to having fever and chills when she had the initial pancreatitis which started on Monday. Patient also states that she has frequent upper respiratory infections and a history of smoking. PAST MEDICAL HISTORY: Past medical history is significant for depression. The patient was a 7-year recovered alcoholic; however, she fell off the [employer] 2 years ago, so the patient is currently consuming alcohol. PAST SURGICAL HISTORY: Negative. ALLERGIES: NO KNOWN DRUG ALLERGIES. MEDICATIONS: Medications patient is on at home include: 1. Xanax 1 mg p.o. daily p.r.n. 2. Paxil 40 mg p.o. daily. 3. Ibuprofen 200 mg p.o. q.6 hours p.r.n. 4. Zyrtec 10 mg p.o. daily. FAMILY HISTORY: The patient's mother is 65 years old, alive and well. Father at the age of 63 from an [place]. SOCIAL HISTORY: Patient does have a history of smoking one pack a day since the age of 18. Again, the patient has a history of ETOH abuse and had been 7 years sober and fell off the [employer] 2 years ago; consumes a bottle of wine nightly. The patient denies any illicit drug use. 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 REVIEW OF SYSTEMS: HEENT: Negative for any headaches. Patient did have some lightheadedness. The patient does verbalize a 30-pound weight loss over the past 3 years. The patient denies any acute visual changes. Denies any difficulty hearing. Does have seasonal rhinitis from hayfever. Denies any sore throat. Denies any difficulty swallowing. RESPIRATORY: Negative for shortness of breath; however, patient start started coughing yesterday, nonproductive. CARDIOVASCULAR: Positive for chest pain when patient was initially admitted; however, states that has resolved. Denies palpitations. Does have tachycardia. GI: Positive for abdominal pain on admission; however, that has resolved as well. The patient denies any further vomiting. Did have vomiting episodes at home for 3 days where she could not keep anything down. Patient did have a BM yesterday which was normal. : Negative for any dysuria or hematuria. The patient does state that she is currently on her period. ENDOCRINE: Negative for diabetes or thyroid disease. MUSCULOSKELETAL: Negative for any arthritic or joint pain. NEUROLOGIC: Negative for any history of seizures. PSYCHIATRIC: Positive for depression. PHYSICAL EXAMINATION: GENERAL: This is a pleasant 44-year-old female seen sitting up in bed, awake, alert, in no acute distress. VITAL SIGNS: Temperature is 98.7, heart rate 110, respiratory rate 24, blood pressure 144/95. Oxygen saturations are in the 90s on high-flow oxygen; does drop into the 70s on room air. HEENT: Head is normocephalic, atraumatic. Pupils equal, round, react to light. Ears and nose: No discharge is noted. Mouth with moist mucous membranes. Mallampati is class IV. NECK: Supple. Trachea is midline. LUNGS: Significantly decreased bases posteriorly bilaterally with fair to decreased air entry to the mid and upper lobes. HEART: S1 and S2 are heard. Tachycardic. ABDOMEN: Soft. Bowel sounds are positive. EXTREMITIES: No edema. NEUROLOGIC: Patient is awake and alert. LABS: White count is 22.3, hemoglobin 12.2, hematocrit 37.1 with 194,000 platelets. Sodium is 137, potassium 3.5, chloride 104. CO2 is 24. Anion gap is 9. BUN is 7, creatinine 0.64. Glucose is 78. Calcium is 7.9. Total bilirubin 2.1, AST 107, ALT 59, alkaline phosphatase 135. LDH 2032. Troponins less than 0.012. Total protein 5.3, albumin 2.6, triglycerides 105, cholesterol 87. LDL is 44. HDL is 22. Lipase is 304. IMAGING: Chest x-ray done yesterday shows significant increased pulmonary edema compared to yesterday and consistent with RDS. There are probably increasing pleural effusions, also. CT of the chest shows no evidence of pulmonary embolism; extensive pulmonary infiltrates with pleural fluid and infiltrate and atelectasis at the lung bases are significant; change compared to old exam. This could relate to RDS. There are extensive inflammatory changes and fluid involving the pancreas consistent with pancreatitis. That is a change compared to old exam. IMPRESSION AT THIS TIME: 1. Probable acute respiratory distress syndrome. 2. Possible aspiration pneumonia. 3. Acute pancreatitis. 4. Elevated liver enzymes. 5. Ethanol abuse. PLAN: Will order echocardiogram and a BNP. Will add aerosolized steroids. Agree with diuresis. Continue antibiotics with Levaquin and Zosyn. Continue GI and DVT prophylaxis. Ativan p.r.n. for possible withdrawals. Thank you for the consultation. We will follow patient closely with you, making further changes as necessary. GENESIS / JERELN: [id number] /
--- NOTE | 2019-08-09 16:23 | PN ---
PROGRESS NOTE DATE OF DICTATION: 08/09/2019 Patient is a 44-year-old pleasant white female admitted to the hospital with acute alcoholic pancreatitis. She had an episode of shortness of breath last night and Pulmonary was consulted. She was started on Lasix. She is feeling much better today. She denies any abdominal pain. She reports no nausea or vomiting. No fever, chills or night sweats. PHYSICAL EXAMINATION: She appears comfortable. No apparent distress. VITAL SIGNS: Stable. Temperature is 97.2, pulse rate 127, blood pressure 158/101. HEENT examination unremarkable. Conjunctivae pink. Sclerae anicteric. Oral cavity no lesions. NECK: No JVD or lymph node enlargement. CHEST: Clear to auscultation. HEART: Regular rate and rhythm. ABDOMEN: Soft. It was non-tender, non-distended. Bowel sounds are positive. No organomegaly. EXTREMITIES: No pedal edema. SKIN: No rashes. NEUROLOGIC: She is alert and oriented x3. No focal deficits. LABS/IMAGING: Labs done today show WBC 22.3, hemoglobin 12.2, platelets normal. Lipase is down to 304. AST and ALT are 107 and 59, respectively. T-bilirubin is 2.1. She did have a CT of the chest done yesterday; no evidence of pulmonary embolism. However, there were extensive changes noted in the pancreas consistent with acute pancreatitis. IMPRESSION: 1. Acute alcoholic pancreatitis, gradually improving. Lipase has almost normalized. Presently on a clear liquid diet, tolerating well. 2. Leukocytosis, for which Dr. Quiñones has been consulted. 3. Shortness of breath last night. CT of the chest was negative for pulmonary embolism, but she was noted to have pulmonary infiltrates/aspiration pneumonia. RECOMMENDATIONS: 1. Will advance to a low-fat diet. 2. Repeat labs in the morning. 3. Await recommendations from Dr. Quiñones. 4. Will follow closely during her hospital stay. Thank you for this consultation. MMODL / IJN: [id number] /
--- NOTE | 2019-08-09 16:38 | XR ---
EXAMINATION TYPE: XR chest 2V DATE OF EXAM: 08/09/2019 COMPARISON: Prior chest x-ray 08/08/[address] 08/09/2019 HISTORY: Left ventricular failure, abnormal chest x-ray TECHNIQUE: Frontal and lateral views of the chest are obtained. FINDINGS: Bilateral airspace disease is extensive and similar to prior exam. There is blunting the r ight costophrenic angle. Heart is not thought to be enlarged but is obscured. No evident pneumothorax . IMPRESSION: Bilateral airspace disease. Correlate for congestive heart failure, pulmonary edema, pne umonia. There are associated effusions.
[2019-08-09] MEDS: POTASSIUM CHLORIDE ER 20 MEQ TAB.ER PO SCH (20:41)
[2019-08-10] MEDS: FUROSEMIDE 10 MG/ML 4 ML VIAL IV SCH ×3 (00:20→21:28)
[2019-08-10] MEDS: PIPERACILLIN-TAZOBACTAM 3.375 GM in SODIUM CHLORIDE 0.9% 100 ML IVPB SCH ×4 (00:20→23:42)
[2019-08-10] MEDS: LEVOFLOXACIN 500MG-D5W PMX 500 MG in DEXTROSE/WATER 1 100ML.BAG IVPB SCH (01:25)
[2019-08-10] MEDS: SODIUM CHLORIDE 0.9% 1,000 ML IV SCH (06:11)
[2019-08-10 08:01] LABS: Anisocytosis Slight; Basophils # (A) 0.1 k/uL (0-0.2); Basophils % (A) 1 %; Eosinophils # (A) 0.2 k/uL (0-0.7); Eosinophils % (A) 1 %; HCT 36.8 % (34.0-46.0); HGB 12.4 gm/dL (11.4-16.0); Lymphocytes # (A) 1.2 k/uL (1.0-4.8); Lymphocytes % (A) 8 %; MCH 35.5 pg (25.0-35.0); MCHC 33.6 g/dL (31.0-37.0); MCV 105.9 fL (80.0-100.0); Macrocytosis Marked; Mean Platelet Volume 7.1; Monocytes # (A) 1.3 k/uL (0-1.0); Monocytes % (A) 8 %; Neutrophils # (A) 12.2 k/uL (1.3-7.7); Neutrophils % (A) 81 %; Platelet Count 250 k/uL (150-450); RBC 3.48 m/uL (3.80-5.40); RDW 17.1 % (11.5-15.5)
--- NOTE | 2019-08-10 08:04 | P.CONS ---
History of Present Illness - Reason for Consult Consult date: 08/09/19 Aspiration pneumonia Requesting physician: Merrill Calles - Chief Complaint Abdominal pain and vomiting x few days - History of Present Illness Patient is a 44-year-old female with a past medical history significant for alcoholism presenting to the ER at [facility] on 08/07/2019 with a chief complaints of for intractable vomiting and abdominal pain the patient's symptoms started 3 days prior to presentation hospital on Monday the night before the patient was drinking heavily, patient described the pain to be mostly in the epigastric area is examined to be sharp almost 12 out of 10 with some radiation across the abdomen with associated intractable vomiting she was unable to keep anything down patient did complain of some chills but did not recall taking her temperature but asymptomatic the patient presented to the ER with the patient was evaluated by the physician on arrival to the hospital the patient was afebrile however did have elevated white count of 23,000 she was noticed to have elevated amylase and lipase and has been diag nosed with alcohol-induced pancreatitis patient has been treated medically yesterday therapy to spike low-grade fever 100.5 and the Vicodin that initially came down to 16 is up to 22,020 the patient also noticed to be hypoxic requiring supplemental oxygen CT angiogram was done which was negative for PE however did shows extensive pulmonary infiltrate and some bilateral pleural effusion and also features of extensive peritonitis with some fluid around the pancreas the patient has been started on Zosyn and infectious disease has been consulted for further recommendation for antibiotic therapy especially with elevated white count and possible aspiration pneumonia patient having a burning of shortness of breathand chest pain though she did have mild cough with occasional sputum no hemoptysis patient vomiting has resolved and currently denies having any diarrhea Review of Systems CONSTITUTIONAL: Positive for weakness. Low-grade Fever EYES: No complaint. ENT:No complaint. RESPIRATORY: As per history of present illness. CARDIOVASCULAR: No complaint. GENITOURINARY: No complaint. GASTROINTESTINAL: As per history of present illness. MUSCULOSKELETAL: No complaint. INTEGUMENTARY: No complaint. PSYCHOLOGICAL: No complaint. ENDOCRINE: No complaint. NEUROLOGIC: No complaint. Past Medical History Past Medical History: No Reported History Additional Past Medical History / Comment(s): Pt admitted to [facility] on 08/05/19 with acute pancreatitis/htn urgency-she signed out AMA to go home and care for her dog (couldn't find anyone to help). Other hx: IBS, bronchitis, ETOH abuse. History of Any Multi-Drug Resistant Organisms: None Reported Past Surgical History: No Surgical Hx Reported Additional Past Surgical History / Comment(s): EGD, colonoscopies. Past Anesthesia/Blood Transfusion Reactions: No Reported Reaction Past Psychological History: Anxiety, Depression Smoking Status: Current every day smoker Past Alcohol Use History: Daily, Heavy Additional Past Alcohol Use History / Comment(s): Patient drinks 1/2-1 bottle of wine daily. She was alcohol-free for 7 years and starting drinking 2 years ago. She smokes 1PPD since she was 18. She denies and illicit drug use. She is div orced and lives alone. There is a dog in the home. Past Drug Use History: None Reported - Past Family History Father Additional Family Medical History / Comment(s): Father is from [place]. Mother Family Medical History: No Reported History Additional Family Medical History / Comment(s): Mother is alive with history of asthma, pancreatitis, alchohol abuse. Patient does not have any brothers, sisters, children. Medications and Allergies Home Medications Medication Instructions Recorded Confirmed Type Cetirizine HCl [Zyrtec] 10 mg PO DAILY 05/13/18 08/07/19 History PARoxetine HCL [Paxil] 40 mg PO DAILY 05/13/18 08/07/19 History ALPRAZolam [Xanax] 1 mg PO DAILY PRN 08/05/19 08/07/19 History Ibuprofen 200 mg PO Q6H 08/07/19 08/07/19 History Allergies Allergy/AdvReac Type Severity Reaction Status Date / Time No Known Allergies Allergy Verified 08/07/19 11:41 Physical Exam Vitals: Vital Signs Temp Pulse Resp BP Pulse Ox 08/09/19 09:49 83 L 08/09/19 09:46 16 72 L 08/09/19 08:00 110 H 24 08/09/19 07:16 91 L 08/09/19 06:10 92 L 08/09/19 05:15 98.7 F 110 H 24 144/95 96 08/09/19 04:40 93 L 08/09/19 02:20 93 L 08/09/19 00:15 95 08/09/19 00:00 24 08/08/19 23:51 92 L 08/08/19 23:18 98.5 F 08/08/19 23:17 93 L 08/08/19 22:40 92 L 08/08/19 22:11 92 L 08/08/19 21:30 100.5 F H 139 H 24 160/94 84 L 08/08/19 16:20 120 H 147/91 Intake and Output 08/08/19 08/09/19 08/09/19 22:59 06:59 14:59 Other: Voiding Method Toilet Toilet Toilet # Voids 1 4 Weight 54.431 kg GENERAL DESCRIPTION: Middle-aged female lying in bed, no distress. No tachypnea or accessory muscle of respiration use. HEENT: Shows Pallor , no scleral icterus. Oral mucous membrane is dry. No pharyngeal erythema or thrush NECK: Trachea central, no thyromegaly. LUNGS: Unlabored breathing. Decreased breath sound the bases. No wheeze or crackle. HEART: S1, S2, regular rate and rhythm. No loud murmur ABDOMEN: Soft, mild epigastric tenderness , no guarding or rigidity, no organomegaly EXTREMITIES: No edema of feet. SKIN: No rash, no masses palpable. NEUROLOGICAL: The patient is awake, alert, oriented x3, mood and affect normal. Results CBC & Chem 7: 08/09/19 07:20 08/09/19 07:20 Labs: Abnormal Lab Results - Last 24 Hours (Table) 08/08/19 08/09/19 08/09/19 Range/Units 23:11 07:20 07:20 WBC 22.3 H (3.8-10.6) k/uL RBC 3.43 L (3.80-5.40) m/uL MCV 108.2 H (80.0-100.0) fL MCH 35.7 H (25.0-35.0) pg RDW 17.0 H (11.5-15.5) % Macrocytosis Marked A D-Dimer 10.51 H (<0.60) mg/L FEU Calcium 7.9 L (8.4-10.2) mg/dL Total Bilirubin 2.1 H (0.2-1.3) mg/dL AST 107 H (14-36) U/L ALT 59 H (9-52) U/L Alkaline Phosphatase 135 H (38-126) U/L Lactate Dehydrogenase 2032 H (313-618) U/L Total Protein 5.3 L (6.3-8.2) g/dL Albumin 2.6 L (3.5-5.0) g/dL HDL Cholesterol 22 L (40-60) mg/dL Lipase 304 H (23-300) U/L Assessment and Plan Assessment: 1-patient with leukocytosis and low-grade fever in this patient has been present hospital with intractable vomiting and abdominal pain more likely secondary to severe alcohol-induced pancreatitis in this patient was also hypoxic and did have a cough with bilateral pulmonary fatigue with a question of possible ARDS picture however underlying aspiration pneumonitis not entirely excluded (1) Aspiration pneumonia Current Visit: Yes Status: Acute Code(s): J69.0 - PNEUMONITIS DUE TO INHAL ATION OF FOOD AND VOMIT SNOMED Code(s): 017432535 (2) Acute pancreatitis Current Visit: No Status: Acute Code(s): K85.90 - ACUTE PANCREATITIS WITHOUT NECROSIS OR INFECTION, UNSP SNOMED Code(s): 584724552 Plan: 1-we will try to obtain sputum for Gram stain and culture 2-check pro calcitonin level 3-Zosyn 3.375 g every 8 hours We will follow on clinical condition and cultures to further adjust medication if needed Thank you for this consultation will follow this patient with you Time with Patient: Greater than 30
[2019-08-10 08:17] LABS: African American GFR (CKD) >90 (>60 ml/min/1.73 sqM); Anion Gap 6 mmol/L; Blood Urea Nitrogen 7 mg/dL (7-17); Carbon Dioxide 37 mmol/L (22-30); Chloride 94 mmol/L (98-107); Glucose 84 mg/dL (74-99); Non-African American GFR(CKD) >90 (>60 ml/min/1.73 sqM); Potassium 2.8 mmol/L (3.5-5.1); Sodium 137 mmol/L (137-145)
[2019-08-10] MEDS: THIAMINE 100 MG TAB PO SCH ×2 (08:42→16:36)
[2019-08-10] MEDS: POTASSIUM CHLORIDE ER 20 MEQ TAB.ER PO SCH ×6 (08:42→23:42)
[2019-08-10] MEDS: MULTIVITAMINS, THERA 1 EACH TAB PO SCH (08:42)
[2019-08-10] MEDS: FAMOTIDINE 20 MG/2 ML VIAL IV SCH (08:42)
[2019-08-10] MEDS: ACAMPROSATE CALCIUM 333 MG TABLET.DR PO SCH ×3 (08:42→21:28)
[2019-08-10] MEDS: LISINOPRIL 10 MG TAB PO SCH (08:42)
[2019-08-10] MEDS: NICOTINE 21MG/24HR PATCH TRANSDERM SCH (08:42)
[2019-08-10] MEDS: ENOXAPARIN 40 MG/0.4 ML SYRINGE SQ SCH (08:42)
[2019-08-10 08:43] LABS: Calcium 7.8 mg/dL (8.4-10.2)
[2019-08-10] MEDS: ACETAMINOPHEN TAB 325 MG TAB PO PRN ×2 (09:06→21:27)
[2019-08-10] MEDS ORDERED: Potassium Replacement Protocol 1 EACH MISC MISCELLANE PRN (10:40)
--- NOTE | 2019-08-10 11:49 | XR ---
EXAMINATION TYPE: XR chest 2V DATE OF EXAM: 08/10/2019 COMPARISON: Chest x-ray 08/09/2019 HISTORY: Fluid overload TECHNIQUE: Frontal and lateral views of the chest are obtained. FINDINGS: Patchy bilateral airspace opacities in a perihilar predominant distribution, slightly impr marion of the lung apices bilaterally. Trace bilateral pleural effusions. Cardiac silhouette is not enl arged. No pneumothorax. IMPRESSION: Improved aeration of the lung apices bilaterally. Trace bilateral pleural effusions.
--- NOTE | 2019-08-10 12:40 | PN ---
PROGRESS NOTE DATE OF SERVICE: 08/10/2019 Patient is a 44-year-old pleasant white female with history of heavy alcohol abuse, admitted to the hospital with acute pancreatitis. She is feeling much better today. Abdominal pain has resolved on a low-fat diet, tolerating well. She denies any fever, chills, or night sweats. She did have some shortness of breath yesterday that has since resolved. She was seen by Dr. Quiñones yesterday and was started on broad-spectrum antibiotics. PHYSICAL EXAMINATION: She appears comfortable, in no apparent distress. VITAL SIGNS: Stable. Blood pressure is 154/98, pulse 89 6, temperature 98.3. HEENT: Examination sclerae nonicteric oral cavity no lesions. NECK: No JVD or lymph node enlargement. CHEST: Clear to auscultation. ABDOMEN: Soft. Mild tenderness in the epigastric area. Bowel sounds are positive. EXTREMITIES: No pedal edema. SKIN: No rashes. NEURO: Alert and oriented x3. No focal deficits. LABS: From today WBC 15, hemoglobin 12, platelets 250. Potassium is 2.8. Rest of the labs are within normal limits. IMPRESSION: 1. Acute pancreatitis due to alcohol use, gradually improving. Amylase and lipase have normalized. 2. Leukocytosis for which Dr. Quiñones has been consulted. Workup in progress. She was started on Zosyn yesterday. 3. Mild elevation of serum transaminases gradually improving, probably related to underlying alcoholic liver disease. RECOMMENDATION: 1. Continue with broad-spectrum antibiotics. 2. Continue with low-fat diet. 3. Repeat labs in the morning and will follow with you closely during hospital stay. Thank you for this consultation. MMODL / IJN: [id number] /
--- NOTE | 2019-08-10 16:02 | PN ---
PROGRESS NOTE DATE OF SERVICE: 08/10/2019 The patient is a 44-year-old female who is seen lying in bed, is awake and alert. States that she is feeling much better today. Denies any abdominal pain. No nausea, no vomiting. Continues to require high-flow O2 to maintain sats greater than or equal to 92%. Patient is afebrile. BP is a bit elevated. The patient is in no acute distress. PHYSICAL EXAM: Vital signs, temp 98.3, heart rate 86, respiratory rate 24, blood pressure 154/98, O2 saturation 96% on high-flow oxygen at 8 L. HEENT. Head is normocephalic, atraumatic. Neck is supple. Trachea is midline. LUNGS: With significantly decreased breath sounds to the bilateral bases. Relatively clear to the upper lobes. HEART: S1, S2 are heard, not tachycardic. ABDOMEN: Soft. Bowel sounds are positive. EXTREMITIES: With no edema. NEUROLOGIC: Patient is awake and alert. LABS: White count is 15.0, hemoglobin is 12.4, hematocrit 36.8 with 250,000 platelets. Sodium is 137, potassium is 2.8, chloride 94, CO2 is 37, anion gap is 6, BUN is 7, creatinine 0.72, glucose is 84, calcium is 7.8. IMAGING: A chest x-ray done this a.m. shows improved aeration of the lung apices bilaterally. Trace bilateral pleural effusions. IMPRESSION: 1. Acute respiratory distress syndrome. 2. Possible aspiration pneumonia. 3. Acute pancreatitis. 4. Ethanol abuse. 5. Hypertension. 6. Hypokalemia. PLAN: Continue current medications which have been reviewed. Will continue diuresis, add Lasix 40 mg IV q.12 hours. Continue oxygen to maintain saturations greater than or equal to 92%. Continue GI and DVT prophylaxis. Continue GI recommendations. Continue aerosol steroids. Continue incentive spirometry and pulmonary hygiene. Will follow up on echocardiogram which is pending and follow patient closely with you making further changes as necessary. MMODL / IJN: [id number] /
--- NOTE | 2019-08-10 16:21 | P.PN ---
Subjective Progress Note Date: 08/10/19 This is a 44-year-old female patient of Juan Gerard NP with past medical history of seasonal ALLERGIES, recurrent depression, generalized anxiety disorder, alcohol abuse. Patient initially presented to [facility] on August 05 with abdominal pain and was diagnosed with pancreatitis but due to dog being home by itself, patient refused to stay. Patient return on August 07. Patient states that she had sudden onset Monday of abdominal pain with vomiting bile. Abdomen is painful across the lowers bilateral sides. She gives history of having alcohol abuse and was sober for 7 years it has been drinking for the past 2 years. She drinks a half to one bottle of wine per day. Her last alcohol intake was on Monday evening. WBC 23.5. LDH 3051, initial lipase 9339 and repeat today is 2448, alcohol level less than 10, total bilirubin 2.4, AST 88, ALT 91, alkaline phosphatase 98, lactic acid 1.5. Patient was made nothing by mouth, started on IV fluids and morphine for pain which is been subtly changed to Dilaudid, Zofran for nausea. Repeat lab work is ordered for the morning. [facility] protocol initiated. 08/08: Patient states the nausea has resolved but she continues to have significant pain. We'll plan to start transitioning to oral tramadol. Diet will be slowly advanced today for clear liquid and full liquid this evening. IV fluids will be decreased 125 mL per hour. Patient is requesting Antabuse but we will start her on Campral 666 mg 3 times daily. Blood pressure remains elevated and lisinopril 10 mg daily started. Patient still has Vasotec in place for systolic blood pressure greater than 160. Repeat lab work reveals white count of 16.5, blood sugar 57, LDH 1970, lipase 683. Total bilirubin 1.6, AST 48, ALT 40, alkaline phosphatase 86. She has been afebrile, blood pressure 147/99, heart rate 113, pulse ox 95% on room air. Anticipate probable discharge home tomorrow. 08/09: A-Team was called last evening. Pateint developed temp 100.5 along with tachycardia up to 139 bpm and hypoxia with pulse ox of 84% on 5 L nasal cannula. Patient was started on Zosyn and Levaquin. Patient was also placed on high flow nasal cannula. Chest x-ray reveals significant increased pulmonary edema compared to yesterday and consistent with RDS. There are probably increasing pleural effusions. CTA of the chest showed no evidence of pulmonary embolism. Extensive pulmonary infiltrates with pleural fluid and infiltrate and atelectasis at the lung bases are significant change from old exam. This could relate to RDS. There is extensive inflammatory changes and fluid involving the pancreas consistent with pancreatitis. Patient was given 1 dose of IV Lasix 40 mg. A consult has been added for pulmonary medicine with Dr. DIANN Calles. Patient states that she is feeling much better now, her breathing is at her baseline with no shortness of breath. She denies having any abdominal pain. Pro- calcitonin will be added as well as Lasix IV 40 mg 3 times daily. Diet will be advanced. Probable discharge tomorrow. 08/10: Patient's been seen, discussed with Dr. Ishmael Garg to be given on discharge, patient wants to be discharged tomorrow, however she is still on 8 L O2 nasal cannula, she feels much better, with the shortness of breath and cough, patient reluctant to be on steroids secondary to anxiety, she mentioned that she cannot stay longer as sure they had missed so much sick days at work, and she plans on going back to work on Monday otherwise she will be fired from work chest x-ray performed today improved aeration bilateral lung apices, trace bilateral effusion, patchy bilateral airspace opacities perihilar region patient is satting at 97% 8 L, this will be decreased heart rate 111, patient will be ambulated with room air evaluate home oxygen requirements Solu-Medrol started 2 doses for ARDS, continue IV antibiotics IV Lasix continue aerosol steroids eview of Systems Constitutional: Reports anorexia, Reports fatigue, Reports poor appetite, Denies chills, Denies fever, Denies lethargy, Denies malaise Eyes: denies blurred vision, denies pain Ears, nose, mouth and throat: Denies dysphagia, Denies headache, Denies nasal congestion, Denies nasal discharge, Denies sore throat Cardiovascular: Denies chest pain, Denies decreased exercise tolerance, Denies dyspnea on exertion, Denies lightheadedness, Denies shortness of breath, Denies syncope Respiratory: Denies cough, Denies cough with sputum, Denies dyspnea, Denies excessive sputum, Denies hemoptysis, Denies home oxygen, Denies wheezing Gastrointestinal: Denies abdominal pain, Reports loss of appetite, denies nausea, denies vomiting, Denies constipation, Denies diarrhea, Denies melena Genitourinary: Denies dysuria, Denies hematuria, Denies urgency, Denies urinary frequency Musculoskeletal: Denies frequent falls, Denies gait dysfunction, Denies muscle weakness, Denies myalgias Integumentary: Denies pruritus, Denies rash, Denies wounds Neurological: Denies change in mentation, Denies change in speech, Denies numbness, Denies weakness Psychiatric: Denies anxiety, Denies depression Endocrine: Denies fatigue, Denies weight change Objective - Vital Signs Vital signs: Vital Signs Temp 97.8 F 08/10/19 13:59 Pulse 111 H 08/10/19 13:59 Resp 18 08/10/19 13:59 BP 145/102 08/10/19 13:59 Pulse Ox 97 08/10/19 13:59 Intake & Output 08/09/19 08/10/19 08/10/19 18:59 06:59 18:59 Intake Total 500 260 Balance 500 260 Weight 54.431 kg Intake: Intake, IV Titration 260 Amount Piperacillin-Tazobactam 3 100 .375 gm In Sodium Chloride 0.9% 100 ml @ 25 mls/hr IVPB Q8HR ELIESER Rx# :[id number] Sodium Chloride 0.9% 1, 160 000 ml @ 20 mls/hr IV . Q24H ELIESER Rx#:[id number] Oral 500 Other: Voiding Method Toilet Toilet # Voids 5 4 - Constitutional General appearance: Present: average body habitus, cooperative, no acute distress - EENT Eyes: Present: anicteric sclerae, EOMI, PERRLA, dentition normal ENT: Present: NA/AT, normal oropharynx - Neck Neck: Present: normal ROM Thyroid: bilateral: normal size - Respiratory Respiratory: bilateral: CTA, negative: diminished, dullness - Cardiovascular Rhythm: regular Heart sounds: normal: S1, S2 Abnormal Heart Sounds: Absent: systolic murmur, diastolic murmur, rub, S3 Gallop, S4 Gallop, click, other - Integumentary Integumentary: Present: normal, normal turgor - Neurologic Neurologic: Present: CNII-XII intact - Musculoskeletal Musculoskeletal: Present: gait normal, strength equal bilaterally - Psychiatric Psychiatric: Present: A&O x's 3, appropriate affect, intact judgment & insight - Labs CBC & Chem 7: 08/12/19 10:53 08/12/19 10:53 Labs: Abnormal Lab Results - Last 24 Hours (Table) 08/09/19 08/09/19 08/10/19 Range/Units 11:47 11:55 07:20 WBC 15.0 H (3.8-10.6) k/uL RBC 3.48 L (3.80-5.40) m/uL MCV 105.9 H (80.0-100.0) fL MCH 35.5 H (25.0-35.0) pg RDW 17.1 H (11.5-15.5) % Neutrophils # 12.2 H (1.3-7.7) k/uL Monocytes # 1.3 H (0-1.0) k/uL Macrocytosis Marked A Potassium (3.5-5.1) mmol/L Chloride (98-107) mmol/L Carbon Dioxide (22-30) mmol/L Calcium (8.4-10.2) mg/dL Prealbumin <5.0 L (18.0-42.0) mg/dL Procalcitonin 0.18 H (0.02-0.09) ng/mL 08/10/19 Range/Units 07:20 WBC (3.8-10.6) k/uL RBC (3.80-5.40) m/uL MCV (80.0-100.0) fL MCH (25.0-35.0) pg RDW (11.5-15.5) % Neutrophils # (1.3-7.7) k/uL Monocytes # (0-1.0) k/uL Macrocytosis Potassium 2.8 L (3.5-5.1) mmol/L Chloride 94 L (98-107) mmol/L Carbon Dioxide 37 H (22-30) mmol/L Calcium 7.8 L (8.4-10.2) mg/dL Prealbumin (18.0-42.0) mg/dL Procalcitonin (0.02-0.09) ng/mL Microbiology - Last 24 Hours (Table) 08/08/19 23:11 Blood Culture - Preliminary Blood No Growth after 24 hours Assessment and Plan Plan: 1. Acute pancreatitis with abdominal pain, nausea and vomiting secondary to alcohol abuse. Continue IV fluids discontinued. Diet full liquids and advance to low fat. Dilaudid discontinued. Continue Tylenol or tramadol for pain. 2. Hypertensive emergency. Patient received labetalol in the emergency center. Start Vasotec 1.25 mg IV push every 6 hours as needed for systolic blood pressure greater than 160. Patient started on lisinopril 10 mg daily. 3. Alcohol abuse. [facility] protocol initiated, social work consult. Continue IV fluids, thiamine, multivitamins. 4. Acute respiratory distress, with acute hypoxic respiratory failure, suspect aspiration pneumonia, ARDS clinical picture, patient seen by Dr. Cuenca, on IV Zosyn, we'll transition to oral Avelox post discharge, patient would be receiving nebulized steroids, IV Lasix, IV Solu-Medrol 2 dose is 40 every 8 home O2 evaluation with ambulatory pulse ox the next 24 hours 4. Elevated LDH of unclear etiology. Recheck in the morning. 5. Elevated liver function tests secondary to alcohol abuse. 6. GI prophylaxis. IV Pepcid every 12 hours. 7. DVT prophylaxis. Lovenox. 8. Tobacco use and dependence. Nicotine patch. 9. Acute hypoxic respiratory failure secondary to fluid overload. Patient is status post 1 dose of IV Lasix, started on IV Levaquin and Zosyn, consult with Dr. DIANN Calles area and chest x-ray and CTA of the chest as above. Pulmonary embolism has been ruled out. Pro-calcitonin, IV Lasix 40 mg every 8 hours for 3 doses, currently at 40 every 12. Discharge plan: home on monday with ambulatory pulse ox prior to discharge
[2019-08-10] MEDS ORDERED: methylPREDNISolone SOD SUCCI 40 MG/ML 1 ML VIAL IV SCH (16:30)
[2019-08-10] MEDS: ENALAPRILAT 1.25 MG/ML 1 ML VIAL IVP PRN (18:06)
[2019-08-10] MEDS: LORazepam 2 MG/ML INJ IV PRN (19:33)
--- NOTE | 2019-08-10 20:44 | PN ---
PROGRESS NOTE DATE OF SERVICE: 08/10/2019. REASON FOR FOLLOWUP: Alcoholic pancreatitis and possible aspiration pneumonitis. INTERVAL HISTORY: The patient is currently afebrile. Patient is breathing more comfortably. The patient did have a cough. Mostly dry in nature. Denies any nausea, vomiting and abdominal pain has resolved. Did have a bowel movement. Overall feeling much better. PHYSICAL EXAMINATION: Blood pressure 145/100 with a pulse of 111. Temperature 97.8. She is 97% on 8 L nasal cannula oxygen. General description is a middle-aged female up in the bed in no distress. Respiratory system: Unlabored breathing. Decreased breath sounds at the bases. No wheeze. Heart S1, S2. Regular rate and rhythm. ABDOMEN: Soft, mildly distended. No guarding or rigidity. Extremities: No edema of the feet. LABS: Hemoglobin is 12.4, white count down to 15,000. BUN of 7, creatinine 0.72. DIAGNOSTIC IMPRESSION AND PLAN: Patient with admission to hospital with alcoholic pancreatitis, subsequently developing respiratory distress, could have been underlying aspiration pneumonitis not entirely excluded. The patient white count did show a downward trend. However, the patient started on Zosyn to continue while waiting for condition to stabilize and cultures to finalize and continue supportive care. MMODL / IJN: [id number] / MTDD
[2019-08-10] MEDS: BUDESONIDE 1 MG/2 ML NEBU INHALATION SCH (20:46)
[2019-08-10] MEDS: FAMOTIDINE 20 MG TAB PO SCH (21:28)
[2019-08-11] MEDS: SODIUM CHLORIDE 0.9% 1,000 ML IV SCH (04:59)
[2019-08-11] MEDS: ENALAPRILAT 1.25 MG/ML 1 ML VIAL IVP PRN (05:02)
[2019-08-11] MEDS: LORazepam 2 MG/ML INJ IV PRN ×3 (06:15→20:03)
[2019-08-11] MEDS: BUDESONIDE 1 MG/2 ML NEBU INHALATION SCH ×2 (07:09→19:14)
[2019-08-11 08:01] LABS: Anisocytosis Slight; HGB 11.6 gm/dL (11.4-16.0); MCH 35.9 pg (25.0-35.0); MCHC 34.1 g/dL (31.0-37.0); MCV 105.3 fL (80.0-100.0); Macrocytosis Moderate; Mean Platelet Volume 7.1; Platelet Count 298 k/uL (150-450); RBC 3.23 m/uL (3.80-5.40); RDW 16.8 % (11.5-15.5); WBC 15.8 k/uL (3.8-10.6)
[2019-08-11 08:17] LABS: African American GFR (CKD) >90 (>60 ml/min/1.73 sqM); Anion Gap 7 mmol/L; Blood Urea Nitrogen 9 mg/dL (7-17); Calcium 8.2 mg/dL (8.4-10.2); Carbon Dioxide 33 mmol/L (22-30); Chloride 96 mmol/L (98-107); Glucose 124 mg/dL (74-99); Non-African American GFR(CKD) >90 (>60 ml/min/1.73 sqM); Potassium 3.3 mmol/L (3.5-5.1); Sodium 136 mmol/L (137-145)
[2019-08-11] MEDS: ACAMPROSATE CALCIUM 333 MG TABLET.DR PO SCH ×3 (08:18→21:27)
[2019-08-11] MEDS: FUROSEMIDE 10 MG/ML 4 ML VIAL IV SCH ×2 (08:19→20:03)
[2019-08-11] MEDS: NICOTINE 21MG/24HR PATCH TRANSDERM SCH (08:20)
[2019-08-11] MEDS: PIPERACILLIN-TAZOBACTAM 3.375 GM in SODIUM CHLORIDE 0.9% 100 ML IVPB SCH ×3 (08:20→23:08)
[2019-08-11] MEDS: LISINOPRIL 10 MG TAB PO SCH (08:20)
[2019-08-11] MEDS: FAMOTIDINE 20 MG TAB PO SCH ×2 (08:20→20:03)
[2019-08-11] MEDS: MULTIVITAMINS, THERA 1 EACH TAB PO SCH (08:20)
[2019-08-11] MEDS: THIAMINE 100 MG TAB PO SCH ×2 (08:20→16:18)
[2019-08-11] MEDS: ENOXAPARIN 40 MG/0.4 ML SYRINGE SQ SCH (08:30)
--- NOTE | 2019-08-11 10:16 | PN ---
PROGRESS NOTE DATE OF SERVICE: August 11, 2019 Patient is a 44-year-old pleasant white female admitted to hospital with acute alcoholic pancreatitis and is gradually improving. She denies any symptoms today. She feels a little bit shaky, but no nausea, vomiting. Tolerating diet well. No abdominal pain. PHYSICAL EXAMINATION: She appears comfortable. No apparent distress. VITAL SIGNS: Stable. Blood pressure is 164/106, pulse rate 105, temperature 98. HEENT examination unremarkable. Conjunctivae pink. Sclerae anicteric. The oral cavity no lesions. NECK: No JVD or lymph node enlargement. CHEST: Clear to auscultation. HEART: Regular rate and rhythm. ABDOMEN: Soft, it nontender, nondistended. EXTREMITIES: No pedal edema. SKIN: No rashes. NEUROLOGIC: Alert and oriented x3. No focal deficits. LABS: From today WBC 15.8, hemoglobin 11.6, platelets normal. Basic metabolic panel is within normal limits. IMPRESSION: 1. Acute alcohol related pancreatitis which is gradually resolving. 2. Mild leukocytosis for which Dr. Quiñones is following the patient closely. 3. Mild alcohol withdrawal. RECOMMENDATIONS: 1. Continue with a low-fat diet. 2. Continue with broad-spectrum antibiotics. 3. Repeat labs in the morning. 4. We will follow closely during hospital stay. Thank you for the consultation. MMODL / IJN: [id number] /
--- NOTE | 2019-08-11 13:13 | PN ---
PROGRESS NOTE DATE OF SERVICE: 08/11/2019 Patient is a 44-year-old female who is seen lying in bed, is awake and alert. Feels a little better respiratory damon today. Denies worsening shortness of breath. Has an occasional cough. The patient appears to be going through mild alcohol withdrawal. The patient continues to require high-flow oxygen to maintain oxygen saturations greater than 92%. The patient has somewhat elevated blood pressure, which could be from mild alcohol withdrawal. The patient is afebrile, in no acute distress. PHYSICAL EXAM: VITAL SIGNS: Temp 98.3, heart rate 105, respiratory rate 16, blood pressure 164/106, O2 sats 96% on high-flow O2 at 8 L HEENT. Head is normocephalic, atraumatic. Neck is supple. Trachea is midline. LUNGS: Diminished breath sounds in the right base as well as the left mid posterior lung. HEART: S1, S2 heard. Not tachycardic. ABDOMEN: Soft. Bowel sounds are heard. EXTREMITIES: With no edema. NEUROLOGIC: Patient is awake and alert. LABS: White count is 15.8, hemoglobin 11.6, hematocrit 34.0 with 298,000 platelets. Sodium is 136, potassium is 3.3, chloride 96. CO2 is 33, anion gap is 7, BUN is 9, creatinine 0.67, glucose is 124, calcium is 8.2. Chest x-ray done yesterday showed improved aeration of the lung apices bilaterally. Trace bilateral pleural effusions. IMPRESSION: 1. Acute respiratory distress syndrome. 2. Possible aspiration pneumonia. 3. Acute pancreatitis. 4. Ethanol abuse. 5. Hypertension. 6. Hypokalemia. PLAN: Continue current medications which have been reviewed. Continue CIWA scale with Ativan for mild alcohol withdrawals. Continue oxygen to maintain sats greater than or equal to 92%. Continue GI and DVT prophylaxis. Continue aerosol steroids with incentive spirometry and pulmonary hygiene. Await results of echocardiogram. Replace potassium and we will continue to follow patient closely with you making further changes as necessary. MMODL / IJN: [id number] /
--- NOTE | 2019-08-11 16:23 | P.PN ---
Subjective Progress Note Date: 08/11/19 This is a 44-year-old female patient of Juan Gerard NP with past medical history of seasonal ALLERGIES, recurrent depression, generalized anxiety disorder, alcohol abuse. Patient initially presented to [facility] on August 05 with abdominal pain and was diagnosed with pancreatitis but due to dog being home by itself, patient refused to stay. Patient return on August 07. Patient states that she had sudden onset Monday of abdominal pain with vomiting bile. Abdomen is painful across the lowers bilateral sides. She gives history of having alcohol abuse and was sober for 7 years it has been drinking for the past 2 years. She drinks a half to one bottle of wine per day. Her last alcohol intake was on Monday evening. WBC 23.5. LDH 3051, initial lipase 9339 and repeat today is 2448, alcohol level less than 10, total bilirubin 2.4, AST 88, ALT 91, alkaline phosphatase 98, lactic acid 1.5. Patient was made nothing by mouth, started on IV fluids and morphine for pain which is been subtly changed to Dilaudid, Zofran for nausea. Repeat lab work is ordered for the morning. [facility] protocol initiated. 08/08: Patient states the nausea has resolved but she continues to have significant pain. We'll plan to start transitioning to oral tramadol. Diet will be slowly advanced today for clear liquid and full liquid this evening. IV fluids will be decreased 125 mL per hour. Patient is requesting Antabuse but we will start her on Campral 666 mg 3 times daily. Blood pressure remains elevated and lisinopril 10 mg daily started. Patient still has Vasotec in place for systolic blood pressure greater than 160. Repeat lab work reveals white count of 16.5, blood sugar 57, LDH 1970, lipase 683. Total bilirubin 1.6, AST 48, ALT 40, alkaline phosphatase 86. She has been afebrile, blood pressure 147/99, heart rate 113, pulse ox 95% on room air. Anticipate probable discharge home tomorrow. 08/09: A-Team was called last evening. Pateint developed temp 100.5 along with tachycardia up to 139 bpm and hypoxia with pulse ox of 84% on 5 L nasal cannula. Patient was started on Zosyn and Levaquin. Patient was also placed on high flow nasal cannula. Chest x-ray reveals significant increased pulmonary edema compared to yesterday and consistent with RDS. There are probably increasing pleural effusions. CTA of the chest showed no evidence of pulmonary embolism. Extensive pulmonary infiltrates with pleural fluid and infiltrate and atelectasis at the lung bases are significant change from old exam. This could relate to RDS. There is extensive inflammatory changes and fluid involving the pancreas consistent with pancreatitis. Patient was given 1 dose of IV Lasix 40 mg. A consult has been added for pulmonary medicine with Dr. DIANN Calles. Patient states that she is feeling much better now, her breathing is at her baseline with no shortness of breath. She denies having any abdominal pain. Pro- calcitonin will be added as well as Lasix IV 40 mg 3 times daily. Diet will be advanced. Probable discharge tomorrow. 08/10: Patient's been seen, discussed with Dr. Ishmael Garg to be given on discharge, patient wants to be discharged tomorrow, however she is still on 8 L O2 nasal cannula, she feels much better, with the shortness of breath and cough, patient reluctant to be on steroids secondary to anxiety, she mentioned that she cannot stay longer as sure they had missed so much sick days at work, and she plans on going back to work on Monday otherwise she will be fired from work chest x-ray performed today improved aeration bilateral lung apices, trace bilateral effusion, patchy bilateral airspace opacities perihilar region patient is satting at 97% 8 L, this will be decreased heart rate 111, patient will be ambulated with room air evaluate home oxygen requirements Solu-Medrol started 2 doses for ARDS, continue IV antibiotics IV Lasix continue aerosol steroids 08/11: We have discussed Solu-Medrol yesterday which patient has refused, she gets more anxious, however she agreed for the Solu-Medrol today, pulse oximetry on ambulation room air is 80%, she did well with 2-3 L O2 at rest and conditions, instead of the 8 L which is currently decreasing requirements, supplemental 1 dose to be given today, budesonide he was increased yesterday at 1 mg twice a day, no fevers, no abdominal pain, no aspiration events, echocardiogram is currently pending, currently maintained IV Zosyn, factors disease closely following eview of Systems Constitutional: Reports anorexia, Reports fatigue, Reports poor appetite, Denies chills, Denies fever, Denies lethargy, Denies malaise Eyes: denies blurred vision, denies pain Ears, nose, mouth and throat: Denies dysphagia, Denies headache, Denies nasal congestion, Denies nasal discharge, Denies sore throat Cardiovascular: Denies chest pain, Denies decreased exercise tolerance, Denies dyspnea on exertion, Denies lightheadedness, Denies shortness of breath, Denies syncope Respiratory: Denies cough, Denies cough with sputum, Denies dyspnea, Denies ex cessive sputum, Denies hemoptysis, Denies home oxygen, Denies wheezing Gastrointestinal: Denies abdominal pain, Reports loss of appetite, denies nausea, denies vomiting, Denies constipation, Denies diarrhea, Denies melena Genitourinary: Denies dysuria, Denies hematuria, Denies urgency, Denies urinary frequency Musculoskeletal: Denies frequent falls, Denies gait dysfunction, Denies muscle weakness, Denies myalgias Integumentary: Denies pruritus, Denies rash, Denies wounds Neurological: Denies change in mentation, Denies change in speech, Denies numbness, Denies weakness Psychiatric: Denies anxiety, Denies depression Endocrine: Denies fatigue, Denies weight change Objective - Vital Signs Vital signs: Vital Signs Temp 97.8 F 08/11/19 14:32 Pulse 108 H 08/11/19 14:32 Resp 18 08/11/19 14:32 BP 127/93 08/11/19 14:32 Pulse Ox 100 08/11/19 14:32 Intake & Output 08/10/19 08/11/19 08/11/19 18:59 06:59 18:59 Intake Total 260 Balance 260 Intake: Intake, IV Titration 260 Amount Piperacillin-Tazobactam 3 100 .375 gm In Sodium Chloride 0.9% 100 ml @ 25 mls/hr IVPB Q8HR ELIESER Rx# :[id number] Sodium Chloride 0.9% 1, 160 000 ml @ 20 mls/hr IV . Q24H ELIESER Rx#:[id number] Other: Voiding Method Toilet Bedside Commode # Voids 3 1 # Bowel Movements 2 - Constitutional General appearance: Present: cooperative, no acute distress - EENT Eyes: Present: EOMI, dentition normal, normal appearance ENT: Present: NA/AT, normal oropharynx - Neck Neck: Present: normal ROM - Respiratory Respiratory: bilateral: CTA, diminished, negative: dullness, rales - Cardiovascular Rhythm: irregularly irregular Heart sounds: normal: S1, S2 Abnormal Heart Sounds: Absent: systolic murmur, diastolic murmur, rub, S3 Gallop, S4 Gallop, click, other - Gastrointestinal General gastrointestinal: Present: normal bowel sounds, soft - Integumentary Integumentary: Present: decreased turgor, normal - Neurologic Neurologic: Present: CNII-XII intact - Musculoskeletal Musculoskeletal: Present: gait normal, generalized weakness, strength equal bilaterally - Labs CBC & Chem 7: 08/12/19 10:53 08/12/19 10:53 Labs: Abnormal Lab Results - Last 24 Hours (Table) 08/10/19 08/11/19 08/11/19 Range/Units 18:44 07:20 07:20 WBC 15.8 H (3.8-10.6) k/uL RBC 3.23 L (3.80-5.40) m/uL MCV 105.3 H (80.0-100.0) fL MCH 35.9 H (25.0-35.0) pg RDW 16.8 H (11.5-15.5) % Sodium 136 L (137-145) mmol/L Potassium 3.0 L 3.3 L (3.5-5.1) mmol/L Chloride 96 L (98-107) mmol/L Carbon Dioxide 33 H (22-30) mmol/L Glucose 124 H (74-99) mg/dL Calcium 8.2 L (8.4-10.2) mg/dL Microbiology - Last 24 Hours (Table) 08/08/19 23:11 Blood Culture - Preliminary Blood No Growth after 48 hours Assessment and Plan Plan: 1. Acute pancreatitis with abdominal pain, nausea and vomiting secondary to alcohol abuse. Continue IV fluids discontinued. Diet full liquids and advance to low fat. Dilaudid discontinued. Continue Tylenol or tramadol for pain. 2. Hypertensive emergency. Patient received labetalol in the emergency center. Start Vasotec 1.25 mg IV push every 6 hours as needed for systolic blood pressure greater than 160. Patient started on lisinopril 10 mg daily. 3. Alcohol abuse. [facility] protocol initiated, social work consult. Continue IV fluids, thiamine, multivitamins. 4. Acute respiratory distress, with acute hypoxic respiratory failure, suspect aspiration pneumonia, ARDS clinical picture, patient seen by Dr. Cuenca, on IV Zosyn, we'll transition to oral Avelox post discharge, patient would be receiving nebulized steroids, IV Lasix, IV [id number] once given today August 11,O2 reevaluation with ambulatory pulse ox the next 24 hours 4. Elevated LDH of unclear etiology. Recheck in the morning. 5. Elevated liver function tests secondary to alcohol abuse. 6. GI prophylaxis. IV Pepcid every 12 hours. 7. DVT prophylaxis. Lovenox. 8. Tobacco use and dependence. Nicotine patch. 9. Acute hypoxic respiratory failure secondary to fluid overload. Patient is status post 1 dose of IV Lasix, started on IV Levaquin and Zosyn, consult with Dr. DIANN Calles area and chest x-ray and CTA of the chest as above. Pulmonary embolism has been ruled out. Pro-calcitonin, IV Lasix 40 mg every 8 hours for 3 doses, currently at 40 every 12. 10. Acute hypoxemic respiratory failure with ambulation, requires home O2 at discharge, pulse ox ambulation was 80%, within 2 minutes of ambulation at room air. Patient would require home O2, 2-3 L depending on needs, resting as well as during ambulation, he would attempt to relieve follow O2 requirements on ambulation in the next 24 hours Discharge plan: home on monday with ambulatory pulse ox prior to discharge
--- NOTE | 2019-08-11 18:04 | PN ---
PROGRESS NOTE DATE OF SERVICE: 08/11/2019 REASON FOR FOLLOWUP: Acute alcoholic pancreatitis and possible aspiration pneumonitis. INTERVAL HISTORY: The patient is currently afebrile. Patient is breathing comfortably. The patient continued to have a cough, though decreased in intensity and is dry in nature. No chest pain. No nausea, no vomiting. No abdominal pain. No diarrhea. PHYSICAL EXAMINATION: Blood pressure 128/89 with a pulse of 170, temperature 98.3. She is 96% on high-flow oxygen. General description is a middle-aged female up in the bed in no distress. Respiratory system: Unlabored breathing with decreased breath sounds at the bases. No wheeze. Heart S1, S2. Regular rate and rhythm. Abdomen soft. No tenderness. LABS: Hemoglobin is 11.6, white count 15.8. BUN of 9. Creatinine 0.67. Blood culture has been negative. No sputum provided. DIAGNOSTIC IMPRESSION AND PLAN: Patient with leukocytosis which is likely multifactorial in this patient who did have alcohol induced pancreatitis, plus-minus aspiration pneumonitis. Patient is currently covered on Zosyn to continue. Try to obtain a sputum and monitor her white count closely. Continue supportive care. MMODL / IJN: [id number] /
[2019-08-12] MEDS: SODIUM CHLORIDE 0.9% 1,000 ML IV SCH (05:34)
[2019-08-12] MEDS: THIAMINE 100 MG TAB PO SCH ×2 (08:10→16:12)
[2019-08-12] MEDS: LISINOPRIL 10 MG TAB PO SCH (08:10)
[2019-08-12] MEDS: PIPERACILLIN-TAZOBACTAM 3.375 GM in SODIUM CHLORIDE 0.9% 100 ML IVPB SCH ×2 (08:10→16:11)
[2019-08-12] MEDS: NICOTINE 21MG/24HR PATCH TRANSDERM SCH (08:10)
[2019-08-12] MEDS: ACAMPROSATE CALCIUM 333 MG TABLET.DR PO SCH ×2 (08:10→16:24)
[2019-08-12] MEDS: FUROSEMIDE 10 MG/ML 4 ML VIAL IV SCH (08:10)
[2019-08-12] MEDS: ENOXAPARIN 40 MG/0.4 ML SYRINGE SQ SCH (08:10)
[2019-08-12] MEDS: FAMOTIDINE 20 MG TAB PO SCH (08:10)
[2019-08-12] MEDS: MULTIVITAMINS, THERA 1 EACH TAB PO SCH (08:10)
[2019-08-12] MEDS: BUDESONIDE 1 MG/2 ML NEBU INHALATION SCH (09:26)
[2019-08-12 11:07] LABS: Anisocytosis Slight; Basophils # (A) 0.3 k/uL (0-0.2); Basophils % (A) 2 %; Eosinophils # (A) 0.4 k/uL (0-0.7); Eosinophils % (A) 2 %; HGB 12.3 gm/dL (11.4-16.0); Lymphocytes # (A) 1.5 k/uL (1.0-4.8); Lymphocytes % (A) 8 %; MCH 35.1 pg (25.0-35.0); MCHC 33.3 g/dL (31.0-37.0); MCV 105.3 fL (80.0-100.0); Macrocytosis Moderate; Mean Platelet Volume 7.3; Monocytes # (A) 1.3 k/uL (0-1.0); Monocytes % (A) 7 %; Neutrophils # (A) 14.7 k/uL (1.3-7.7); Neutrophils % (A) 79 %; Platelet Count 434 k/uL (150-450); RBC 3.52 m/uL (3.80-5.40); RDW 16.7 % (11.5-15.5); WBC 18.5 k/uL (3.8-10.6)
[2019-08-12 11:18] LABS: ALT 53 U/L (9-52); AST 42 U/L (14-36); African American GFR (CKD) >90 (>60 ml/min/1.73 sqM); Albumin 3.1 g/dL (3.5-5.0); Alkaline Phosphatase 188 U/L (38-126); Anion Gap 10 mmol/L; Blood Urea Nitrogen 10 mg/dL (7-17); Calcium 8.4 mg/dL (8.4-10.2); Carbon Dioxide 36 mmol/L (22-30); Chloride 91 mmol/L (98-107); Glucose 128 mg/dL (74-99); Non-African American GFR(CKD) >90 (>60 ml/min/1.73 sqM); Potassium 2.9 mmol/L (3.5-5.1); Sodium 137 mmol/L (137-145); Total Bilirubin 0.9 mg/dL (0.2-1.3); Total Protein 6.3 g/dL (6.3-8.2)
[2019-08-12] MEDS ORDERED: POTASSIUM CHLORIDE ER 20 MEQ TAB.ER PO SCH (12:00)
[2019-08-12] MEDS: POTASSIUM CHLORIDE ER 20 MEQ TAB.ER PO SCH ×2 (12:25→16:11)
[2019-08-12 14:06] VITALS: BP 111/77; PULSE 94; RESP 16; TEMP 98.1
--- NOTE | 2019-08-12 15:01 | P.PN ---
Subjective Progress Note Date: 08/12/19 This is a 44-year-old female patient of Juan Gerard NP with past medical history of seasonal ALLERGIES, recurrent depression, generalized anxiety disorder, alcohol abuse. Patient initially presented to [facility] on August 05 with abdominal pain and was diagnosed with pancreatitis but due to dog being home by itself, patient refused to stay. Patient return on August 07. Patient states that she had sudden onset Monday of abdominal pain with vomiting bile. Abdomen is painful across the lowers bilateral sides. She gives history of having alcohol abuse and was sober for 7 years it has been drinking for the past 2 years. She drinks a half to one bottle of wine per day. Her last alcohol intake was on Monday evening. WBC 23.5. LDH 3051, initial lipase 9339 and repeat today is 2448, alcohol level less than 10, total bilirubin 2.4, AST 88, ALT 91, alkaline phosphatase 98, lactic acid 1.5. Patient was made nothing by mouth, started on IV fluids and morphine for pain which is been subtly changed to Dilaudid, Zofran for nausea. Repeat lab work is ordered for the morning. [facility] protocol initiated. 08/08: Patient states the nausea has resolved but she continues to have significant pain. We'll plan to start transitioning to oral tramadol. Diet will be slowly advanced today for clear liquid and full liquid this evening. IV fluids will be decreased 125 mL per hour. Patient is requesting Antabuse but we will start her on Campral 666 mg 3 times daily. Blood pressure remains elevated and lisinopril 10 mg daily started. Patient still has Vasotec in place for systolic blood pressure greater than 160. Repeat lab work reveals white count of 16.5, blood sugar 57, LDH 1970, lipase 683. Total bilirubin 1.6, AST 48, ALT 40, alkaline phosphatase 86. She has been afebrile, blood pressure 147/99, heart rate 113, pulse ox 95% on room air. Anticipate probable discharge home tomorrow. 08/09: A-Team was called last evening. Pateint developed temp 100.5 along with tachycardia up to 139 bpm and hypoxia with pulse ox of 84% on 5 L nasal cannula. Patient was started on Zosyn and Levaquin. Patient was also placed on high flow nasal cannula. Chest x-ray reveals significant increased pulmonary edema compared to yesterday and consistent with RDS. There are probably increasing pleural effusions. CTA of the chest showed no evidence of pulmonary embolism. Extensive pulmonary infiltrates with pleural fluid and infiltrate and atelectasis at the lung bases are significant change from old exam. This could relate to RDS. There is extensive inflammatory changes and fluid involving the pancreas consistent with pancreatitis. Patient was given 1 dose of IV Lasix 40 mg. A consult has been added for pulmonary medicine with Dr. DIANN Calles. Patient states that she is feeling much better now, her breathing is at her baseline with no shortness of breath. She denies having any abdominal pain. Pro- calcitonin will be added as well as Lasix IV 40 mg 3 times daily. Diet will be advanced. Probable discharge tomorrow. 08/10: Patient's been seen, discussed with Dr. Ishmael Garg to be given on discharge, patient wants to be discharged tomorrow, however she is still on 8 L O2 nasal cannula, she feels much better, with the shortness of breath and cough, patient reluctant to be on steroids secondary to anxiety, she mentioned that she cannot stay longer as sure they had missed so much sick days at work, and she plans on going back to work on Monday otherwise she will be fired from work chest x-ray performed today improved aeration bilateral lung apices, trace bilateral effusion, patchy bilateral airspace opacities perihilar region patient is satting at 97% 8 L, this will be decreased heart rate 111, patient will be ambulated with room air evaluate home oxygen requirements Solu-Medrol started 2 doses for ARDS, continue IV antibiotics IV Lasix continue aerosol steroids 08/11: We have discussed Solu-Medrol yesterday which patient has refused, she gets more anxious, however she agreed for the Solu-Medrol today, pulse oximetry on ambulation room air is 80%, she did well with 2-3 L O2 at rest and conditions, instead of the 8 L which is currently decreasing requirements, supplemental 1 dose to be given today, budesonide he was increased yesterday at 1 mg twice a day, no fevers, no abdominal pain, no aspiration events, echocardiogram is currently pending, currently maintained IV Zosyn, factors disease closely following 08/12: Echocardiogram is pending. Patient was ambulated without oxygen and pulse ox was 91-95% and does not qualify for home O2. Patient states her breathing is much better but she still has a little shortness of breath. She has a nonproductive cough. She denies any abdominal pain. Patient states that she has been in contact with her AA person and plans to stop drinking and smoking when she lays hospital. Repeat lab work revealed a white count of 18.5, hemoglobin 12.3, platelet count 434. Sodium 137, potassium 2.9, chloride 91, CO2 36, BUN 10 and creatinine 0.69, blood sugar 128. AST 42, ALT 53 and alkaline phosphatase 188. Lipase 424. Due to elevated liver function tests, abdominal ultrasound will be ordered. We will plan to repeat chest x-ray, pro- calcitonin and plan for discharge home tomorrow. Review of Systems Constitutional: Reports anorexia, Reports fatigue, Reports poor appetite, Denies chills, Denies fever, Denies lethargy, Denies malaise Eyes: denies blurred vision, denies pain Ears, nose, mouth and throat: Denies dysphagia, Denies headache, Denies nasal congestion, Denies nasal discharge, Denies sore throat Cardiovascular: Denies chest pain, Denies decreased exercise tolerance, Denies dyspnea on exertion, Denies lightheadedness, Denies shortness of breath, Denies syncope Respiratory: Denies cough, Denies cough with sputum, Denies dyspnea, Denies excessive sputum, Denies hemoptysis, Denies home oxygen, Denies wheezing Gastrointestinal: Denies abdominal pain, Reports loss of appetite, denies nausea, denies vomiting, Denies constipation, Denies diarrhea, Denies melena Genitourinary: Denies dysuria, Denies hematuria, Denies urgency, Denies urinary frequency Musculoskeletal: Denies frequent falls, Denies gait dysfunction, Denies muscle weakness, Denies myalgias Integumentary: Denies pruritus, Denies rash, Denies wounds Neurological: Denies change in mentation, Denies change in speech, Denies num bness, Denies weakness Psychiatric: Denies anxiety, Denies depression Endocrine: Denies fatigue, Denies weight change Objective - Vital Signs Vital signs: Vital Signs Temp 98.4 F 08/12/19 06:21 Pulse 92 08/12/19 06:21 Resp 15 08/12/19 08:00 BP 134/89 08/12/19 06:21 Pulse Ox 98 11/25/19 06:21 Intake & Output 08/11/19 08/12/19 08/12/19 18:59 06:59 18:59 Intake Total 540 Balance 540 Weight 54.3 kg Intake: Oral 540 Other: Voiding Method Toilet Bedside Commode # Voids 3 1 1 - Exam - Constitutional General appearance: Present: cooperative, no acute distress, no respiratory distress noted - EENT Eyes: Present: EOMI, dentition normal, normal appearance ENT: Present: NA/AT, normal oropharynx - Neck Neck: Present: normal ROM - Respiratory Respiratory: bilateral: CTA, diminished, negative: dullness, rales - Cardiovascular Rhythm: irregularly irregular Heart sounds: normal: S1, S2 Abnormal Heart Sounds: Absent: systolic murmur, diastolic murmur, rub, S3 Gallop, S4 Gallop, click, other - Gastrointestinal General gastrointestinal: Present: normal bowel sounds, soft - Integumentary Integumentary: Present: decreased turgor, normal - Neurologic Neurologic: Present: CNII-XII intact - Musculoskeletal Musculoskeletal: Present: gait normal, generalized weakness, strength equal bilaterally - Labs CBC & Chem 7: 08/12/19 10:53 08/12/19 10:53 Labs: Microbiology - Last 24 Hours (Table) 08/08/19 23:11 Blood Culture - Preliminary Blood No Growth after 72 hours Assessment and Plan Plan: 1. Acute pancreatitis with abdominal pain, nausea and vomiting secondary to alcohol abuse. Continue IV fluids discontinued. Diet full liquids and advance to low fat. Dilaudid discontinued. Continue Tylenol or tramadol for pain. Abdominal ultrasound ordered. 2. Hypertensive emergency. Patient received labetalol in the emergency center. Start Vasotec 1.25 mg IV push every 6 hours as needed for systolic blood pressure greater than 160. Patient started on lisinopril 10 mg daily. 3. Alcohol abuse. [facility] protocol initiated, social work consult. Discontinue IV fluids, continue thiamine, multivitamins. 4. Elevated LDH of unclear etiology. Recheck in the morning. 5. Elevated liver function tests secondary to alcohol abuse. 6. GI prophylaxis. IV Pepcid every 12 hours. 7. DVT prophylaxis. Lovenox. 8. Tobacco use and dependence. Nicotine patch. 9. Acute hypoxic respiratory failure secondary to fluid overload and pneumonitis. Continue Zosyn, consult with Dr. DIANN Calles and Dr. Quiñones appreciated. CTA of the chest as above. Pulmonary embolism has been ruled out. Repeat Pro-calcitonin, decrease Lasix to 40 mg daily, Repeat chest x-ray. Discharge plan: home on Monday Impression and plan of care have been directed as dictated by the signing physician. Hannah Aly nurse practitioner acting as scribe for signing physician.
--- NOTE | 2019-08-12 15:02 | XR ---
EXAMINATION TYPE: XR chest 2V DATE OF EXAM: 08/12/2019 COMPARISON: Chest 08/10/[address] 08/09/2019 HISTORY: Pneumonitis TECHNIQUE: Frontal and lateral views of the chest are obtained. FINDINGS: There is improvement in aeration, persistent increased density present in the right middle lobe and lingula. There is improvement in the pleural effusions. IMPRESSION: Improvement in airspace disease and aeration, pleural effusions
--- NOTE | 2019-08-12 15:03 | P.PN ---
Subjective Progress Note Date: 08/12/19 Principal diagnosis: Acute pancreatitis, hypertension hypertensive cardiovascular disease, hypertensive emergency, call use, aspiration pneumonia, alcohol hepatitis, smoking and nicotine abuse possibly COPD August 12 2019, patient seen eval reexamined during the rounds Reviewed medications reviewed cough congestion shortness of breath has improved patient has been on oral antibiotics now, her respiratory status is improved, her chest x-ray from this morning reviewed no active infiltrate has been identified however in the left lower lobe there is some prominent interstitial marking with follow-up it up on outpatient basis patient counseled about smoking cessation Objective - Vital Signs Vital signs: Vital Signs Temp 98.1 F 08/12/19 12:57 Pulse 94 08/12/19 12:57 Resp 16 08/12/19 14:47 BP 111/77 08/12/19 12:57 Pulse Ox 96 08/12/19 12:57 Intake & Output 08/11/19 08/12/19 08/12/19 18:59 06:59 18:59 Intake Total 540 Balance 540 Weight 54.3 kg Intake: Oral 540 Other: Voiding Method Toilet Bedside Commode # Voids 3 1 3 - Exam - Constitutional General appearance: Present: cooperative, no acute distress - EENT Eyes: Present: EOMI, dentition normal, normal appearance ENT: Present: NA/AT, normal oropharynx - Neck Neck: Present: normal ROM - Respiratory Respiratory: bilateral: CTA, diminished, negative: dullness, rales - Cardiovascular Rhythm: irregularly irregular Heart sounds: normal: S1, S2 Abnormal Heart Sounds: Absent: systolic murmur, diastolic murmur, rub, S3 Gallop, S4 Gallop, click, other - Gastrointestinal General gastrointestinal: Present: normal bowel sounds, soft - Integumentary Integumentary: Present: decreased turgor, normal - Neurologic Neurologic: Present: CNII-XII intact - Musculoskeletal Musculoskeletal: Present: gait normal, generalized weakness, strength equal bilaterally - Labs CBC & Chem 7: 08/12/19 10:53 08/12/19 10:53 Labs: Abnormal Lab Results - Last 24 Hours (Table) 08/12/19 08/12/19 Range/Units 10:53 10:53 WBC 18.5 H (3.8-10.6) k/uL RBC 3.52 L (3.80-5.40) m/uL MCV 105.3 H (80.0-100.0) fL MCH 35.1 H (25.0-35.0) pg RDW 16.7 H (11.5-15.5) % Neutrophils # 14.7 H (1.3-7.7) k/uL Monocytes # 1.3 H (0-1.0) k/uL Basophils # 0.3 H (0-0.2) k/uL Potassium 2.9 L (3.5-5.1) mmol/L Chloride 91 L (98-107) mmol/L Carbon Dioxide 36 H (22-30) mmol/L Glucose 128 H (74-99) mg/dL AST 42 H (14-36) U/L ALT 53 H (9-52) U/L Alkaline Phosphatase 188 H (38-126) U/L Albumin 3.1 L (3.5-5.0) g/dL Lipase 424 H (23-300) U/L Microbiology - Last 24 Hours (Table) 08/08/19 23:11 Blood Culture - Preliminary Blood No Growth after 72 hours Assessment and Plan Assessment: Aspiration pneumonitis left lower lobe Acute pancreatitis Alcohol a hepatitis Smoking and nicotine abuse Possible COPD Plan: Agree with oral Avelox and discharge planning Patient to be evaluated further outpatient basis for pneumonia and COPD evaluation further recommendations pending Time with Patient: Greater than 30
--- NOTE | 2019-08-12 16:10 | US ---
EXAMINATION TYPE: US abdomen limited DATE OF EXAM: 08/12/2019 COMPARISON: CT 08/09/2019 CLINICAL HISTORY: elevated LFT. pancreatitis EXAM MEASUREMENTS: Liver Length: 14.8 cm Gallbladder Wall: 0.1 cm CBD: 0.4 cm Right Kidney: 9.4 x 4.9 x 4.5 cm Pancreas: hypoechoic and full in size Liver: There is a coarse echotexture, no evident mass Gallbladder: wnl Evidence for sonographic Hinojosa's sign: no CBD: wnl Right Kidney: wnl There is no ascites in Morison's pouch. IMPRESSION: Hypoechoic pancreas consistent with pancreatitis. Correlate for possible hepatic steatosi s, hepatocellular disease.
--- NOTE | 2019-08-12 16:17 | PN ---
PROGRESS NOTE DATE OF SERVICE: 08/12/2019. REASON FOR FOLLOWUP: Acute alcoholic pancreatitis and question of aspiration pneumonitis. INTERVAL HISTORY: The patient is currently afebrile. Patient is breathing more comfortably, currently on room air. The patient denies having any chest pain. She did have some cough though decreased in intensity, mostly dry in nature. No chest pain. No nausea, no vomiting. No abdominal pain. No diarrhea. PHYSICAL EXAMINATION: Blood pressure is 111/77 with a pulse of 94, temperature 98.1. She is 96% on room air. GENERAL description is a middle-aged female up in the bed in no distress. RESPIRATORY SYSTEM: Unlabored breathing with decreased intense breath sounds. No wheeze. CARDIOVASCULAR: Heart S1, S2. Regular rate and rhythm. ABDOMEN: Soft, no tenderness. LABS: Hemoglobin is 12.8, white count 18.5. BUN of 10, creatinine 0.69. Blood culture has been negative. She was unable to provide any sputum. DIAGNOSTIC IMPRESSION AND PLAN: Patient with elevated white count which is likely multifactorial in this patient who did have acute severe alcoholic pancreatitis with a question of possible aspiration pneumonitis. Patient is currently covered with Zosyn. White count slightly up today, that will be monitored closely. Continue Zosyn. Continue supportive care. Repeat a CBC tomorrow. MMODL / IJN: [id number] /
--- NOTE | 2019-08-13 08:26 | P.DS ---
Providers Date of admission: 08/07/19 12:23 Expected date of discharge: 08/12/19 Attending physician: Deborah Bowman Consults: 08/07/19 12:19 Consult Physician Routine Consulting Provider: Mary Duckworth Consult Reason/Comments: pancreatitis Do you want consulting provider notified?: Yes 08/08/19 22:37 Consult Physician Routine Consulting Provider: Merrill Calles Consult Reason/Comments: hypoxemia Do you want consulting provider notified?: Yes 08/09/19 14:22 Consult Physician Routine Consulting Provider: Jaclyn Quiñones Consult Reason/Comments: aspiration pneumonia Do you want consulting provider notified?: Yes Primary care physician: BONNIE Sadler Hospital Course: This is a 44-year-old female patient of Juan Gerard NP with past medical history of seasonal ALLERGIES, recurrent depression, generalized anxiety disorder, alcohol abuse. Patient initially presented to [facility] on August 05 with abdominal pain and was diagnosed with pancreatitis but due to dog being home by itself, patient refused to stay. Patient return on August 07. Patient states that she had sudden onset Monday of abdominal pain with vomiting bile. Abdomen is painful across the lowers bilateral sides. She gives history of having alcohol abuse and was sober for 7 years it has been drinking for the past 2 years. She drinks a half to one bottle of wine per day. Her last alcohol intake was on Monday evening. WBC 23.5. LDH 3051, initial lipase 9339 and repeat today is 2448, alcohol level less than 10, total bilirubin 2.4, AST 88, ALT 91, alkaline phosphatase 98, lactic acid 1.5. Patient was made nothing by mouth, started on IV fluids and morphine for pain which is been subtly changed to Dilaudid, Zofran for nausea. Repeat lab work is ordered for the morning. CIWA protocol initiated. 08/08: Patient states the nausea has resolved but she continues to have significant pain. We'll plan to start transitioning to oral tramadol. Diet will be slowly advanced today for clear liquid and full liquid this evening. IV fluids will be decreased 125 mL per hour. Patient is requesting Antabuse but we will start her on Campral 666 mg 3 times daily. Blood pressure remains elevated and lisinopril 10 mg daily started. Patient still has Vasotec in place for systolic blood pressure greater than 160. Repeat lab work reveals white count of 16.5, blood sugar 57, LDH 1970, lipase 683. Total bilirubin 1.6, AST 48, ALT 40, alkaline phosphatase 86. She has been afebrile, blood pressure 147/99, heart rate 113, pulse ox 95% on room air. Anticipate probable discharge home tomorrow. 08/09: A-Team was called last evening. Pateint developed temp 100.5 along with tachycardia up to 139 bpm and hypoxia with pulse ox of 84% on 5 L nasal cannula. Patient was started on Zosyn and Levaquin. Patient was also placed on high flow nasal cannula. Chest x-ray reveals significant increased pulmonary edema compared to yesterday and consistent with RDS. There are probably increasing pleural effusions. CTA of the chest showed no evidence of pulmonary embolism. Extensive pulmonary infiltrates with pleural fluid and infiltrate and atelectas is at the lung bases are significant change from old exam. This could relate to RDS. There is extensive inflammatory changes and fluid involving the pancreas consistent with pancreatitis. Patient was given 1 dose of IV Lasix 40 mg. A consult has been added for pulmonary medicine with Dr. DIANN Calles. Patient states that she is feeling much better now, her breathing is at her baseline with no shortness of breath. She denies having any abdominal pain. Pro-calcitonin will be added as well as Lasix IV 40 mg 3 times daily. Diet will be advanced. Probable discharge tomorrow. 08/10: Patient's been seen, discussed with Dr. Ishmael Garg to be given on discharge, patient wants to be discharged tomorrow, however she is still on 8 L O2 nasal cannula, she feels much better, with the shortness of breath and cough, patient reluctant to be on steroids secondary to anxiety, she mentioned that she cannot stay longer as sure they had missed so much sick days at work, and she plans on going back to work on Monday otherwise she will be fired from work chest x-ray performed today improved aeration bilateral lung apices, trace bilateral effusion, patchy bilateral airspace opacities perihilar region patient is satting at 97% 8 L, this will be decreased heart rate 111, patient will be ambulated with room air evaluate home oxygen requirements Solu-Medrol started 2 doses for ARDS, continue IV antibiotics IV Lasix continue aerosol steroids 08/11: We have discussed Solu-Medrol yesterday which patient has refused, she gets more anxious, however she agreed for the Solu-Medrol today, pulse oximetry on ambulation room air is 80%, she did well with 2-3 L O2 at rest and conditions, instead of the 8 L which is currently decreasing requirements, supplemental 1 dose to be given today, budesonide he was increased yesterday at 1 mg twice a day, no fevers, no abdominal pain, no aspiration events, echocardiogram is currently pending, currently maintained IV Zosyn, factors disease closely following 08/12: Echocardiogram is pending. Patient was ambulated without oxygen and pulse ox was 91-95% and does not qualify for home O2. Patient states her breathing is much better but she still has a little shortness of breath. She has a nonproductive cough. She denies any abdominal pain. Patient states that she has been in contact with her AA person and plans to stop drinking and smoking when she lays hospital. Repeat lab work revealed a white count of 18.5, hemoglobin 12.3, platelet count 434. Sodium 137, potassium 2.9, chloride 91, CO2 36, BUN 10 and creatinine 0.69, blood sugar 128. AST 42, ALT 53 and alkaline phosphatase 188. Lipase 424. Potassium replaced. Due to elevated liver function tests, abdominal ultrasound will be ordered. We will plan to repeat chest x-ray, pro-calcitonin and plan for discharge home tomorrow. Chest x-ray showed improvement of airspace disease in aeration, pleural effusions. Abdominal ultrasound revealed hypoechoic pancreas consistent with pancreatitis. Correlate for possible hepatic steatosis, hepatocellular disease. Pro-calcitonin 0.16. Patient was very anxious to be discharged home. Discharge diagnoses: 1. Acute pancreatitis with abdominal pain, nausea and vomiting secondary to alcohol abuse. 2. Hypertensive emergency with new diagnoses of hypertension. 3. Alcohol abuse. 4. Elevated LDH 5. Elevated liver function tests secondary to alcohol abuse. 6. Tobacco use and dependence. Nicotine patch. 7. Acute hypoxic respiratory failure secondary to fluid overload and pneumonitis. Discharge plan: home Impression and plan of care have been directed as dictated by the signing physician. Hannah Aly nurse practitioner acting as scribe for signing physician. Patient Condition at Discharge: Good Plan - Discharge Summary Discharge Rx Participant: No New Discharge Prescriptions: New Acamprosate Calcium [Campral] 666 mg PO TID #90 tablet. Nicotine 21Mg/24Hr Patch [Habitrol] 1 patch TRANSDERM DAILY #30 patch Lisinopril [Zestril] 10 mg PO DAILY #30 tab Thiamine [Vitamin B-1] 100 mg PO DAILY #30 tab Continue PARoxetine HCL [Paxil] 40 mg PO DAILY Discontinued Cetirizine HCl [Zyrtec] 10 mg PO DAILY ALPRAZolam [Xanax] 1 mg PO DAILY PRN PRN Reason: Anxiety Ibuprofen 200 mg PO Q6H Discharge Medication List PARoxetine HCL [Paxil] 40 mg PO DAILY 05/13/18 [History] Acamprosate Calcium [Campral] 666 mg PO TID #90 tablet. 08/12/19 [Rx] Lisinopril [Zestril] 10 mg PO DAILY #30 tab 08/12/19 [Rx] Nicotine 21Mg/24Hr Patch [Habitrol] 1 patch TRANSDERM DAILY #30 patch 08/12/19 [Rx] Thiamine [Vitamin B-1] 100 mg PO DAILY #30 tab 08/12/19 [Rx] Follow up Appointment(s)/Referral(s): Ben Gerard, BONNIE [Primary Care Provider] - 1-2 days Mary Duckworth MD [STAFF PHYSICIAN] - (Pert Pt, already has appointment in August. ) August Garcia MD [STAFF PHYSICIAN] - 1 Week Patient Instructions/Handouts: Pancreatitis (DC), Abuse of Alcohol (DC) Activity/Diet/Wound Care/Special Instructions: Low fat diet Activity as tolerated. Discharge Disposition: HOME SELF-CARE
[2019-08-13] MEDS ORDERED: FUROSEMIDE 40 MG TAB PO SCH (09:00)
--- NOTE | 2019-08-13 12:00 | ECHOF ---
Referral Reason:Tachycardia MEASUREMENTS -------- HEIGHT: 160.0 cm WEIGHT: 54.4 kg BP: 144/95 RVIDd: 2.1 cm (< 3.3) IVSd: 0.6 cm (0.6 - 1.1) LVIDd: 3.7 cm (3.9 - 5.3) LVPWd: 0.7 cm (0.6 - 1.1) IVSs: 1.2 cm LVIDs: 2.2 cm LVPWs: 1.4 cm LAESV Index (A-L): 25.12 ml/m Ao Diam: 1.9 cm (2.0 - 3.7) AV Cusp: 2.1 cm (1.5 - 2.6) LA Diam: 3.0 cm (2.7 - 3.8) MV EXCURSION: 16.449 mm (> 18.000) MV EF SLOPE: 61 mm/s (70 - 150) EPSS: 0.6 cm MV E Delon: 1.10 m/s MV DecT: 98 ms MV A Delon: 1.05 m/s MV E/A Ratio: 1.05 RAP: 5.00 mmHg RVSP: 35.00 mmHg FINDINGS -------- Resting tachycardia (HR>100bpm). This was a technically good study. Left ventricular wall thickness is normal. Overall left ventricular systolic function is normal wit h, an EF between 55 - 60 %. The diastolic filling pattern is normal for the age of the patient 10.6 7. The right ventricle is normal in size. The left atrial size is normal. Normal LA size by volume 22+/-6 ml/m2. The right atrial size is normal. Interatrial and interventricular septum intact. The aortic valve is trileaflet and appears structurally normal. The mitral valve is normal. Mild mitral regurgitation is present. The tricuspid valve appears structurally normal. Mild tricuspid regurgitation present. Right vent ricular systolic pressure is normal at < 35 mmHg. There is no pulmonic regurgitation present. The aortic root size is normal. Normal inferior vena cava with normal inspiratory collapse consistent with estimated right atrial pre ssure of 5 mmHg. There is no pericardial effusion. CONCLUSIONS -------- 1. Resting tachycardia (HR>100bpm). 2. This was a technically good study. 3. Left ventricular wall thickness is normal. 4. Overall left ventricular systolic function is normal with, an EF between 55 - 60 %. 5. The diastolic filling pattern is normal for the age of the patient 10.67 6. The right ventricle is normal in size. 7. The left atrial size is normal. 8. Normal LA size by volume 22+/-6 ml/m2. 9. The right atrial size is normal. 10. Interatrial and interventricular septum intact. 11. The aortic valve is trileaflet and appears structurally normal. 12. The mitral valve is normal. 13. Mild mitral regurgitation is present. 14. The tricuspid valve appears structurally normal. 15. Mild tricuspid regurgitation present. 16. Right ventricular systolic pressure is normal at < 35 mmHg. 17. There is no pulmonic regurgitation present. 18. The aortic root size is normal. 19. Normal inferior vena cava with normal inspiratory collapse consistent with estimated right atrial pressure of 5 mmHg. 20. There is no pericardial effusion. [employer]: Kita Potter RDCS
== END 2019-08-12 18:50 | disposition home or self-care (01) | DRG 438 ==
LOC: EC 10:08 → 4MS4W 12:23
PROVIDERS: ADMIT Family Medicine; ATTEND Family Medicine
DX: K85.20 Alcohol induced acute pancreatitis without necrosis or infection (principal); J96.01 Acute respiratory failure with hypoxia; J69.0 Pneumonitis due to inhalation of food and vomit; F10.239 Alcohol dependence with withdrawal, unspecified; I16.1 Hypertensive emergency; J90 Pleural effusion, not elsewhere classified; J98.11 Atelectasis; D69.6 Thrombocytopenia, unspecified; D75.89 Other specified diseases of blood and blood-forming organs; E87.6 Hypokalemia; E87.70 Fluid overload, unspecified; F17.210 Nicotine dependence, cigarettes, uncomplicated; F32.9 Major depressive disorder, single episode, unspecified; F41.1 Generalized anxiety disorder; I11.9 Hypertensive heart disease without heart failure; K70.10 Alcoholic hepatitis without ascites; Z79.899 Other long term (current) drug therapy; Z82.5 Family history of asthma and other chronic lower respiratory diseases
CPT/HCPCS: 36415; 71045; 71046; 71275; 74022; 76705; 80048; 80053; 80061; 80320; 82803; 83605; 83615; 83690; 83735; 83880; 84132; 84134; 84145; 84484; 85025; 85027; 85379; 87040; 93005; 93306; 94760; 96361; 96374; 96375; 99285

== ENCOUNTER 2019-08-13 11:59 | Emergency (ER) | payer BC ==
[2019-08-13] MEDS ORDERED: IPRATROPIUM-ALBUTEROL 3 ML NEB INHALATION STA (12:35)
--- NOTE | 2019-08-13 13:07 | XR ---
EXAMINATION TYPE: XR chest 2V DATE OF EXAM: 08/13/2019 COMPARISON: From earlier in the day. HISTORY: Chest pain TECHNIQUE: Frontal and lateral views of the chest are obtained. FINDINGS: Patchy middle lobe and lingular infiltrates persist although may be slightly improved. No evidence for pneumothorax. No pleural effusion. The cardiac silhouette size is within normal limits. The osseous structures are grossly intact. IMPRESSION: 1. Patchy middle lobe and lingular infiltrates persist although may be slightly improved.
[2019-08-13 13:10] LABS: ALT 44 U/L (9-52); AST 48 U/L (14-36); African American GFR (CKD) >90 (>60 ml/min/1.73 sqM); Albumin 3.4 g/dL (3.5-5.0); Alcohol <10 mg/dL; Alkaline Phosphatase 177 U/L (38-126); Anion Gap 11 mmol/L; Anisocytosis Slight; Basophils # (A) 0.2 k/uL (0-0.2); Basophils % (A) 1 %; Blood Urea Nitrogen 11 mg/dL (7-17); Calcium 8.7 mg/dL (8.4-10.2); Carbon Dioxide 28 mmol/L (22-30); Chloride 94 mmol/L (98-107); Eosinophils # (A) 0.2 k/uL (0-0.7); Eosinophils % (A) 1 %; Glucose 115 mg/dL (74-99); HCT 38.8 % (34.0-46.0); HGB 13.1 gm/dL (11.4-16.0); Lymphocytes # (A) 1.3 k/uL (1.0-4.8); Lymphocytes % (A) 6 %; MCH 35.4 pg (25.0-35.0); MCHC 33.8 g/dL (31.0-37.0); Macrocytosis Moderate; Magnesium 1.8 mg/dL (1.6-2.3); Mean Platelet Volume 7.1; Monocytes # (A) 0.9 k/uL (0-1.0); Monocytes % (A) 5 %; Neutrophils # (A) 17.4 k/uL (1.3-7.7); Neutrophils % (A) 86 %; Non-African American GFR(CKD) >90 (>60 ml/min/1.73 sqM); Platelet Count 528 k/uL (150-450); Potassium 3.2 mmol/L (3.5-5.1); RDW 16.7 % (11.5-15.5); Sodium 133 mmol/L (137-145); Total Bilirubin 0.9 mg/dL (0.2-1.3); Total Protein 6.8 g/dL (6.3-8.2); WBC 20.4 k/uL (3.8-10.6)
--- NOTE | 2019-08-13 13:19 | ED ---
General Adult HPI - General Chief complaint: Shortness of Breath Stated complaint: SOB Time Seen by Provider: 08/13/19 12:26 Source: patient, RN notes reviewed Mode of arrival: wheelchair Limitations: no limitations - History of Present Illness Initial comments: 44-year-old female presents emergency Department chief complaint of shortness of breath. Patient was discharged from the hospital last night. Patient states that she had a several-day stay in the hospital for aspiration pneumonia, hypertension issues, pancreatitis. Patient itches no abdominal pain denies any alcohol use. Patient states that she was a smoker up until the of this mo h when she was admitted to the hospital. Patient states overnight she had worsening shortness of breath. She was not discharged on any antibiotics or breathing treatments. She had no prior lung disease diagnosis. Patient has no complaints of nausea vomiting diarrhea constipation no recorded fevers at home. - Related Data Home Medications Medication Instructions Recorded Confirmed PARoxetine HCL [Paxil] 40 mg PO DAILY 05/13/18 08/07/19 Previous Rx's Medication Instructions Recorded Acamprosate Calcium [Campral] 666 mg PO TID #90 tablet. 08/12/19 Lisinopril [Zestril] 10 mg PO DAILY #30 tab 08/12/19 Nicotine 21Mg/24Hr Patch [Habitrol] 1 patch TRANSDERM DAILY #30 patch 08/12/19 Thiamine [Vitamin B-1] 100 mg PO DAILY #30 tab 08/12/19 Albuterol Sulfate [Proair Hfa] 1 - 2 puff INHALATION Q4HR PRN #1 08/13/19 inhaler Moxifloxacin HCl [Avelox] 400 mg PO DAILY #7 tablet 08/13/19 Allergies Allergy/AdvReac Type Severity Reaction Status Date / Time No Known Allergies Allergy Verified 08/13/19 12:08 Review of Systems ROS Statement: Those systems with pertinent positive or pertinent negative responses have been documented in the HPI. ROS Other: All systems not noted in ROS Statement are negative. Past Medical History Past Medical History: No Reported History Additional Past Medical History / Comment(s): Pt admitted to [facility] on 08/05/19 with acute pancreatitis/htn urgency-she signed out AMA to go home and care for her dog (couldn't find anyone to help). Other hx: IBS, bronchitis, ETOH abuse. History of Any Multi-Drug Resistant Organisms: None Reported Past Surgical History: No Surgical Hx Reported Additional Past Surgical History / Comment(s): EGD, colonoscopies. Past Anesthesia/Blood Transfusion Reactions: No Reported Reaction Past Psychological History: Anxiety, Depression Smoking Status: Current every day smoker Past Alcohol Use History: Daily, Heavy Past Drug Use History: None Reported - Past Family History Father Additional Family Medical History / Comment(s): Father is from [place]. Mother Family Medical History: No Reported History Additional Family Medical History / Comment(s): Mother is alive with history of asthma, pancreatitis, alchohol abuse. Patient does not have any brothers, sis ters, children. General Exam Limitations: no limitations General appearance: alert, in no apparent distress ENT exam: Present: normal exam, mucous membranes moist Neck exam: Present: normal inspection. Absent: tenderness, meningismus, lymphadenopathy Respiratory exam: Present: rhonchi. Absent: normal lung sounds bilaterally, respiratory distress, wheezes, rales, stridor Cardiovascular Exam: Present: normal rhythm, tachycardia, normal heart sounds. Absent: systolic murmur, diastolic murmur, rubs, gallop, clicks Neurological exam: Present: alert, oriented X3, CN II-XII intact Skin exam: Present: warm, dry, intact, normal color. Absent: rash Course Vital Signs 08/13/19 08/13/19 08/13/19 12:09 12:36 13:15 Temperature 98.0 F Pulse Rate 119 H 110 H Respiratory 18 16 Rate Blood Pressure 109/78 O2 Sat by Pulse 98 Oximetry 08/13/19 13:36 Temperature Pulse Rate 112 H Respiratory Rate Blood Pressure O2 Sat by Pulse Oximetry Medical Decision Making - Medical Decision Making Patient's found to have leukocytosis, mild hypokalemia. Case discussed with Dr. Alonzo states patient was discharge yesterday. Patient's vitals showed mild tachycardia that EKG is unremarkable. Patient we treated for pneumonia in which they thought it may be just related to pneumonitis. Patient be given Avelox, pro-air inhaler she is advised to follow-up with her PCP tomorrow return for any worsening symptoms. - Lab Data Result diagrams: 08/13/19 12:46 08/13/19 12:46 Lab Results 08/13/19 08/13/19 08/13/19 Range/Units 12:46 12:46 12:46 WBC 20.4 H (3.8-10.6) k/uL RBC 3.70 L (3.80-5.40) m/uL Hgb 13.1 (11.4-16.0) gm/dL Hct 38.8 (34.0-46.0) % MCV 105.0 H (80.0-100.0) fL MCH 35.4 H (25.0-35.0) pg MCHC 33.8 (31.0-37.0) g/dL RDW 16.7 H (11.5-15.5) % Plt Count 528 H (150-450) k/uL Neutrophils % 86 % Lymphocytes % 6 % Monocytes % 5 % Eosinophils % 1 % Basophils % 1 % Neutrophils # 17.4 H (1.3-7.7) k/uL Lymphocytes # 1.3 (1.0-4.8) k/uL Monocytes # 0.9 (0-1.0) k/uL Eosinophils # 0.2 (0-0.7) k/uL Basophils # 0.2 (0-0.2) k/uL Anisocytosis Slight Macrocytosis Moderate Sodium 133 L (137-145) mmol/L Potassium 3.2 L (3.5-5.1) mmol/L Chloride 94 L (98-107) mmol/L Carbon Dioxide 28 (22-30) mmol/L Anion Gap 11 mmol/L BUN 11 (7-17) mg/dL Creatinine 0.65 (0.52-1.04) mg/dL Est GFR (CKD-EPI)AfAm >90 (>60 ml/min/1.73 sqM) Est GFR (CKD-EPI)NonAf >90 (>60 ml/min/1.73 sqM) Glucose 115 H (74-99) mg/dL Calcium 8.7 (8.4-10.2) mg/dL Magnesium 1.8 (1.6-2.3) mg/dL Total Bilirubin 0.9 (0.2-1.3) mg/dL AST 48 H (14-36) U/L ALT 44 (9-52) U/L Alkaline Phosphatase 177 H (38-126) U/L Troponin I 0.021 (0.000-0.034) ng/mL Total Protein 6.8 (6.3-8.2) g/dL Albumin 3.4 L (3.5-5.0) g/dL Lipase 383 H (23-300) U/L Serum Alcohol <10 mg/dL Disposition Clinical Impression: Hypokalemia, Pneumonia Disposition: HOME SELF-CARE Condition: Stable Instructions (If sedation given, give patient instructions): Pneumonia (ED) Additional Instructions: Please return to the Emergency Department if symptoms worsen or any other concerns. Prescriptions: Moxifloxacin HCl [Avelox] 400 mg PO DAILY #7 tablet Albuterol Sulfate [Proair Hfa] 1 - 2 puff INHALATION Q4HR PRN #1 inhaler PRN Reason: difficulty in breathing Is patient prescribed a controlled substance at d/c from ED?: No Referrals: Ben Gerard NPC [Primary Care Provider] - 1-2 days Time of Disposition: 14:11
[2019-08-13] MEDS ORDERED: POTASSIUM CHLORIDE ER 20 MEQ TAB.ER PO STA (14:08)
[2019-08-13 14:33] VITALS: BP 126/88; PULSE 84; RESP 18; TEMP 98.5
== END 2019-08-13 14:32 | disposition home or self-care (01) ==
LOC: EC 11:59
DX: J18.9 Pneumonia, unspecified organism (principal); E87.6 Hypokalemia; D72.829 Elevated white blood cell count, unspecified; R00.0 Tachycardia, unspecified; F41.9 Anxiety disorder, unspecified; F32.9 Major depressive disorder, single episode, unspecified; F17.200 Nicotine dependence, unspecified, uncomplicated; Z79.899 Other long term (current) drug therapy
CPT/HCPCS: 36415; 71046; 80053; 80320; 83690; 83735; 84484; 85025; 93005; 94640; 99285

== ENCOUNTER 2020-08-29 12:46 | Emergency (ER) | payer BC ==
[2020-08-29] MEDS ORDERED: SODIUM CHLORIDE 0.9% 1,000 ML IV STA (13:28)
[2020-08-29] MEDS ORDERED: HYDROmorphone 0.5 MG/0.5 ML SYRINGE IVP STA ×5 (13:28→20:45)
--- NOTE | 2020-08-29 13:50 | ED ---
General Adult HPI - General Chief complaint: Abdominal Pain Stated complaint: Post Op - Abd/Back Pain Time Seen by Provider: 08/29/20 13:09 Source: patient, RN notes reviewed, old records reviewed Mode of arrival: ambulatory Limitations: no limitations - History of Present Illness Initial comments: 45-year-old female history of chronic pancreatitis presenting for left-sided abdominal pain. Patient is 2 days status post endoscopic pancreatic stent kg cement at [facility]. She states that this was done entirely endoscopically. She did not have any abdominal incision her surgery. She has had pain since the time of discharge which was 2 days prior. Pain is predominantly left upper quadrant. She denies fever. She has not been able to tolerate any medication and has not had much to eat or drink. No fevers. - Related Data Home Medications Medication Instructions Recorded Confirmed PARoxetine HCL [Paxil] 40 mg PO HS 05/13/18 08/29/20 ALPRAZolam [Xanax] 1 mg PO HS 08/29/20 08/29/20 Ciprofloxacin HCl [Cipro] 250 mg PO Q12HR 08/29/20 08/29/20 Omeprazole 20 mg PO DAILY PRN 08/29/20 08/29/20 lisinopriL [Zestril] 10 mg PO HS 08/29/20 08/29/20 Allergies Allergy/AdvReac Type Severity Reaction Status Date / Time No Known Allergies Allergy Verified 08/29/20 14:44 Review of Systems ROS Statement: Those systems with pertinent positive or pertinent negative responses have been documented in the HPI. ROS Other: All systems not noted in ROS Statement are negative. Past Medical History Past Medical History: No Reported History Additional Past Medical History / Comment(s): Pt admitted to [facility] on 08/05/19 with acute pancreatitis/htn urgency-she signed out AMA to go home and care for her dog (couldn't find anyone to help). Other hx: IBS, bronchitis, ETOH abuse. History of Any Multi-Drug Resistant Organisms: None Reported Past Surgical History: No Surgical Hx Reported Additional Past Surgical History / Comment(s): EGD, colonoscopies. Past Anesthesia/Blood Transfusion Reactions: No Reported Reaction Past Psychological History: Anxiety, Depression Past Alcohol Use History: Daily, Heavy Past Drug Use History: None Reported - Past Family History Father Additional Family Medical History / Comment(s): Father is from [place]. Mother Family Medical History: No Reported History Additional Family Medical History / Comment(s): Mother is alive with history of asthma, pancreatitis, alchohol abuse. Patient does not have any brothers, sisters, children. General Exam Limitations: no limitations General appearance: alert, in no apparent distress Head exam: Present: atraumatic, normocephalic Eye exam: Present: normal appearance, PERRL ENT exam: Present: mucous membranes dry Neck exam: Present: normal inspection. Absent: tenderness, meningismus Respiratory exam: Present: normal lung sounds bilaterally. Absent: respiratory distress, wheezes, rales Cardiovascular Exam: Present: normal rhythm, tachycardia GI/Abdominal exam: Present: soft, tenderness (Left upper quadrant). Absent: distended Neurological exam: Present: alert, oriented X3. Absent: CN II-XII intact, motor sensory deficit Psychiatric exam: Present: normal affect, normal mood Skin exam: Present: warm, dry, intact. Absent: cyanosis, diaphoretic Course Vital Signs 08/29/20 08/29/20 08/29/20 13:03 14:13 14:48 Temperature 98.0 F 98.1 F Pulse Rate 120 H 107 H 104 H Respiratory 18 18 18 Rate Blood Pressure 120/86 136/97 125/92 O2 Sat by Pulse 100 97 98 Oximetry 08/29/20 16:28 Temperature Pulse Rate 91 Respiratory 16 Rate Blood Pressure 112/89 O2 Sat by Pulse 98 Oximetry - Reevaluation(s) Reevaluation #1: 08/29/20 1435 Case discussed with transfer team at [facility]. Reevaluation #2: 08/29/20 15:33 Currently awaiting callback from [facility] regarding transfer. Medical Decision Making - Medical Decision Making 45-year-old female with recent pancreatic stent, 2 days ago at [facility] presenting with left upper abdominal pain. Workup reveals leukocytosis white blood cell count 14, she is a stable hemoglobin. She has a mild lactic acid 2.8. CT showing intra-pancreatic abscess measuring 7 x 8 cm. Patient is started on Zosyn and vancomycin. I did discuss case with Dr. Warner at [facility] who will accept the patient for transfer. She requests a coronavirus test as well as a repeat lactic acid, these are pending. - Lab Data Result diagrams: 08/29/20 13:35 08/29/20 13:35 Lab Results 08/29/20 08/29/20 08/29/20 Range/Units 13:35 13:35 13:35 WBC 13.9 H (3.8-10.6) k/uL RBC 4.31 (3.80-5.40) m/uL Hgb 15.4 (11.4-16.0) gm/dL Hct 46.9 H (34.0-46.0) % MCV 108.8 H (80.0-100.0) fL MCH 35.8 H (25.0-35.0) pg MCHC 32.9 (31.0-37.0) g/dL RDW 13.4 (11.5-15.5) % Plt Count 249 (150-450) k/uL MPV 9.2 Neutrophils % 81 % Lymphocytes % 12 % Monocytes % 4 % Eosinophils % 2 % Basophils % 1 % Neutrophils # 11.3 H (1.3-7.7) k/uL Lymphocytes # 1.7 (1.0-4.8) k/uL Monocytes # 0.5 (0-1.0) k/uL Eosinophils # 0.2 (0-0.7) k/uL Basophils # 0.1 (0-0.2) k/uL Manual Slide Review Performed Large Platelets Present Macrocytosis Marked A PT 11.4 (9.0-12.0) sec INR 1.1 (<1.2) APTT 23.3 (22.0-30.0) sec Sodium 135 L (137-145) mmol/L Potassium 3.5 (3.5-5.1) mmol/L Chloride 100 (98-107) mmol/L Carbon Dioxide 28 (22-30) mmol/L Anion Gap 7 mmol/L BUN 10 (7-17) mg/dL Creatinine 0.62 (0.52-1.04) mg/dL Est GFR (CKD-EPI)AfAm >90 (>60 ml/min/1.73 sqM) Est GFR (CKD-EPI)NonAf >90 (>60 ml/min/1.73 sqM) Glucose 121 H (74-99) mg/dL Lactic Ac Sepsis Rflx Plasma Lactic Acid Phi (0.7-2.0) mmol/L Calcium 8.5 (8.4-10.2) mg/dL Total Bilirubin 1.8 H (0.2-1.3) mg/dL AST 85 H (14-36) U/L ALT 47 H (4-34) U/L Alkaline Phosphatase 255 H (38-126) U/L Total Protein 6.1 L (6.3-8.2) g/dL Albumin 2.7 L (3.5-5.0) g/dL Amylase <30 L (30-110) U/L Lipase 15 L (23-300) U/L 08/29/20 08/29/20 Range/Units 13:35 14:07 WBC (3.8-10.6) k/uL RBC (3.80-5.40) m/uL Hgb (11.4-16.0) gm/dL Hct (34.0-46.0) % MCV (80.0-100.0) fL MCH (25.0-35.0) pg MCHC (31.0-37.0) g/dL RDW (11.5-15.5) % Plt Count (150-450) k/uL MPV Neutrophils % % Lymphocytes % % Monocytes % % Eosinophils % % Basophils % % Neutrophils # (1.3-7.7) k/uL Lymphocytes # (1.0-4.8) k/uL Monocytes # (0-1.0) k/uL Eosinophils # (0-0.7) k/uL Basophils # (0-0.2) k/uL Manual Slide Review Large Platelets Macrocytosis PT (9.0-12.0) sec INR (<1.2) APTT (22.0-30.0) sec Sodium (137-145) mmol/L Potassium (3.5-5.1) mmol/L Chloride (98-107) mmol/L Carbon Dioxide (22-30) mmol/L Anion Gap mmol/L BUN (7-17) mg/dL Creatinine (0.52-1.04) mg/dL Est GFR (CKD-EPI)AfAm (>60 ml/min/1.73 sqM) Est GFR (CKD-EPI)NonAf (>60 ml/min/1.73 sqM) Glucose (74-99) mg/dL Lactic Ac Sepsis Rflx Y Plasma Lactic Acid Phi 2.8 H* (0.7-2.0) mmol/L Calcium (8.4-10.2) mg/dL Total Bilirubin (0.2-1.3) mg/dL AST (14-36) U/L ALT (4-34) U/L Alkaline Phosphatase (38-126) U/L Total Protein (6.3-8.2) g/dL Albumin (3.5-5.0) g/dL Amylase (30-110) U/L Lipase (23-300) U/L Critical Care Time Critical Care Time: Yes Total Critical Care Time: 35 Disposition Clinical Impression: Pancreatic abscess, Abdominal pain, Lactic acid acidosis Disposition: OTHER INSTITUTION NOT DEFINED Condition: Serious Is patient prescribed a controlled substance at d/c from ED?: No Referrals: Josafat Mccoy MD [Primary Care Provider] - 1-2 days Time of Disposition: 16:44 - Out of Hospital Transfer - Req. Specs Out of Hospital Transfer - Requested Specifics: Other Non-Acute (Transfer to [facility])
[2020-08-29 13:51] LABS: Basophils # (A) 0.1 k/uL (0-0.2); Basophils % (A) 1 %; Eosinophils # (A) 0.2 k/uL (0-0.7); Eosinophils % (A) 2 %; HCT 46.9 % (34.0-46.0); HGB 15.4 gm/dL (11.4-16.0); Lymphocytes # (A) 1.7 k/uL (1.0-4.8); Lymphocytes % (A) 12 %; MCH 35.8 pg (25.0-35.0); MCHC 32.9 g/dL (31.0-37.0); MCV 108.8 fL (80.0-100.0); Macrocytosis Marked; Mean Platelet Volume 9.2; Monocytes # (A) 0.5 k/uL (0-1.0); Monocytes % (A) 4 %; Neutrophils # (A) 11.3 k/uL (1.3-7.7); Neutrophils % (A) 81 %; Platelet Count 249 k/uL (150-450); RBC 4.31 m/uL (3.80-5.40); RDW 13.4 % (11.5-15.5); WBC 13.9 k/uL (3.8-10.6)
[2020-08-29 13:57] LABS: ALT 47 U/L (4-34); AST 85 U/L (14-36); African American GFR (CKD) >90 (>60 ml/min/1.73 sqM); Albumin 2.7 g/dL (3.5-5.0); Alkaline Phosphatase 255 U/L (38-126); Amylase <30 U/L (30-110); Anion Gap 7 mmol/L; Blood Urea Nitrogen 10 mg/dL (7-17); Calcium 8.5 mg/dL (8.4-10.2); Carbon Dioxide 28 mmol/L (22-30); Chloride 100 mmol/L (98-107); Glucose 121 mg/dL (74-99); Lipase 15 U/L (23-300); Non-African American GFR(CKD) >90 (>60 ml/min/1.73 sqM); Potassium 3.5 mmol/L (3.5-5.1); Sodium 135 mmol/L (137-145); Total Bilirubin 1.8 mg/dL (0.2-1.3); Total Protein 6.1 g/dL (6.3-8.2)
[2020-08-29 14:06] LABS: INR 1.1 (<1.2); Partial Thromboplastin Time 23.3 sec (22.0-30.0); Prothrombin Time 11.4 sec (9.0-12.0)
[2020-08-29 14:18] LABS: Large Platelets Present
--- NOTE | 2020-08-29 14:19 | CT ---
EXAMINATION TYPE: CT abdomen pelvis w con DATE OF EXAM: 08/29/2020 COMPARISON: None INDICATION: LUQ pain. Post OP Pancreatic stent placement 1 week ago DLP: 677.2 mGycm, Automated exposure control for dose reduction was used. CONTRAST: 100 mL of Isovue 300. Study performed without Oral Contrast TECHNIQUE: Axial images were obtained from above the diaphragm to the pubic rami in the axial plane a t 5 mm thick sections. Reconstructed images are reviewed on the computer in the coronal plane. FINDINGS: Limited CT sections are obtained the lung bases. The lung bases are clear. CT ABDOMEN: Liver: There is moderate fatty infiltration to the liver. Spleen: Normal Pancreas: Large fluid collection is within the mid pancreas. Stent appears to extend into the stomach through this region. Air-fluid levels present. This measures 7.0 x 8.8 cm. Adrenal glands: The adrenal glands are normal. Gallbladder: Normal Kidneys: No masses are evident. No hydronephrosis is present. No cysts are present. Delayed images were obtained through the kidneys, which remain unremarkable. Aorta: Normal Inferior vena cava: Normal. There are fluid-filled small bowel loops which can be compatible with ileus. Portion of the colon vis ualized is unremarkable study is without oral contrast limiting bowel evaluation. CT PELVIS: Loops of bowel within the pelvis appear unremarkable. The uterus is unremarkable. Urinary bladder is decompressed. No free fluid is within the pelvis. IMPRESSIONS: 1. Pancreatic abscess measuring 7.0 x 8.8 cm. Stent drains into the proximal stomach. No intraperito nicole free air is identified. 2. Moderate fatty infiltration to the liver. 3. Poor visualization of the pancreas.Findings can be compatible with Acute pancreatitis
[2020-08-29] MEDS ORDERED: PIPERACILLIN-TAZOBACTAM 3.375 GM in SODIUM CHLORIDE 0.9% 100 ML IVPB STA (14:31)
[2020-08-29] MEDS ORDERED: VANCOMYCIN IV PER PHARMACY 1 EACH MISC MISCELLANE PRN (14:32)
[2020-08-29] MEDS ORDERED: SODIUM CHLORIDE 0.9% 500 ML 500 ML IV ONE (14:33)
[2020-08-29] MEDS ORDERED: SODIUM CHLORIDE 0.9% 1,000 ML IV SCH (14:45)
[2020-08-29] MEDS ORDERED: VANCOMYCIN 750 MG in SODIUM CHLORIDE 0.9% 250 ML IVPB ONE (15:00)
[2020-08-29 16:29] VITALS: RESP 16
[2020-08-29 16:47] LABS: Appearance,Urine Clear (Clear); Bilirubin,Urine Negative (Negative); Blood,Urine Small (Negative); Color,Urine Yellow; Glucose,Urine (UA) Negative (Negative); Ketones,Urine Trace (Negative); Leukocyte Esterase,Urine Negative (Negative); Nitrite,Urine Negative (Negative); Protein,Urine Trace (Negative); RBC,Urine 1 /hpf (0-5); Squamous Epithelial Cell,Urine 8 /hpf (0-4); Urobilinogen,Urine <2.0 mg/dL (<2.0); WBC,Urine 3 /hpf (0-5)
[2020-08-29 17:01] LABS: Specific Gravity,Urine >1.050 (1.001-1.035)
[2020-08-29] MEDS ORDERED: NICOTINE 21MG/24HR PATCH TRANSDERM STA (17:11)
[2020-08-29 20:25] VITALS: BP 130/94; PULSE 84; TEMP 98.3
[2020-08-30] MEDS ORDERED: VANCOMYCIN 750 MG in SODIUM CHLORIDE 0.9% 250 ML IVPB SCH (04:00)
== END 2020-08-29 20:55 | disposition other institution (70) ==
LOC: EC 12:46
DX: Z03.818 Encounter for observation for suspected exposure to other biological agents ruled out (principal); E87.2 Acidosis; K85.90 Acute pancreatitis without necrosis or infection, unspecified; D72.829 Elevated white blood cell count, unspecified; F41.9 Anxiety disorder, unspecified; F32.9 Major depressive disorder, single episode, unspecified; K58.9 Irritable bowel syndrome, unspecified; Z79.899 Other long term (current) drug therapy; Z98.890 Other specified postprocedural states
CPT/HCPCS: 99291; 96365; 96367; 96366 ×2; 96375; 96376 ×4; 96361 ×3; 36415; 80053; 82150; 83605; 83690; 85025; 85610; 85730; 81001; 87635; 74177; S4990; J2543; J3370; J1170; Q9967

== ENCOUNTER 2023-10-08 20:19 | Inpatient (IN) | payer BC ==
[2023-10-08] MEDS: LORazepam 2 MG/ML INJ IV STA (21:16)
[2023-10-08] MEDS: SODIUM CHLORIDE 0.9% 1,000 ML IV STA ×2 (21:16→22:23)
--- NOTE | 2023-10-08 21:17 | ED ---
SOB HPI - General Chief Complaint: Shortness of Breath Stated Complaint: FREDERIC Time Seen by Provider: 10/08/23 20:24 Source: patient, RN notes reviewed, old records reviewed Mode of arrival: EMS Limitations: no limitations - History of Present Illness Initial Comments: This is a 48-year-old female to the emergency department today. Patient presents to ER today for evaluation regards to severe shortness of breath increasing shortness of breath for a few days now with significant of persistent shortness of breath despite treatment. Patient has been increasingly weak and does not feel well, concern for shortness of breath MD Complaint: shortness of breath, cough, chest pain, anxiety -: days(s) Severity: severe Consistency: constant Improves With: nothing Worsens With: exertion Known History Of: asthma Context: recent URI, recent illness Associated Symptoms: chest pain, cough, sputum production Treatments Prior to Arrival: none - Related Data Home Medications Medication Instructions Recorded Confirmed PARoxetine HCL [Paxil] 40 mg PO HS 05/13/18 10/08/23 ALPRAZolam [Xanax] 1 mg PO HS 08/29/20 10/08/23 Azithromycin [Zithromax] 500 mg PO DAILY 10/08/23 10/08/23 Furosemide [Lasix] 20 mg PO HS 10/08/23 10/08/23 Pantoprazole Sodium [Protonix] 80 mg PO DAILY 10/08/23 10/08/23 Purezzz 1 tab PO HS 10/08/23 10/08/23 Spironolactone [Aldactone] 50 mg PO DAILY 10/08/23 10/08/23 diphenhydrAMINE HCL [Benadryl] 25 mg PO HS 10/08/23 10/08/23 guaiFENesin [Mucinex] 600 mg PO Q12H 10/08/23 10/08/23 predniSONE [Deltasone] 40 mg PO DAILY 10/08/23 10/08/23 Allergies Allergy/AdvReac Type Severity Reaction Status Date / Time No Known Allergies Allergy Verified 10/08/23 22:08 Review of Systems ROS Statement: Those systems with pertinent positive or pertinent negative responses have been documented in the HPI. ROS Other: All systems not noted in ROS Statement are negative. Past Medical History Past Medical History: No Reported History Additional Past Medical History / Comment(s): Pt admitted to [facility] on 08/05/19 with acute pancreatitis/htn urgency-she signed out AMA to go home and care for her dog (couldn't find anyone to help). Other hx: IBS, bronchitis, ETOH abuse. History of Any Multi-Drug Resistant Organisms: None Reported Past Surgical History: No Surgical Hx Reported Additional Past Surgical History / Comment(s): EGD, colonoscopies. Past Anesthesia/Blood Transfusion Reactions: No Reported Reaction Past Psychological History: Anxiety, Depression Past Alcohol Use History: Daily, Heavy Past Drug Use History: None Reported - Past Family History Father Additional Family Medical History / Comment(s): Father is from [place]. Mother Family Medical History: No Reported History Additional Family Medical History / Comment(s): Mother is alive with history of asthma, pancreatitis, alchohol abuse. Patient does not have any brothers, sisters, children. General Exam Limitations: no limitations General appearance: alert, in no apparent distress, anxious Head exam: Present: atraumatic, normocephalic, normal inspection Eye exam: Present: normal appearance, PERRL, EOMI. Absent: scleral icterus, conjunctival injection, periorbital swelling ENT exam: Present: normal exam, mucous membranes dry Neck exam: Present: normal inspection. Absent: tenderness, meningismus, lymphadenopathy Respiratory exam: Present: respiratory distress, wheezes, decreased breath sounds, prolonged expiratory. Absent: rales, rhonchi, stridor Cardiovascular Exam: Present: regular rate, normal rhythm, normal heart sounds. Absent: systolic murmur, diastolic murmur, rubs, gallop, clicks GI/Abdominal exam: Present: soft, normal bowel sounds. Absent: distended, tenderness, guarding, rebound, rigid Extremities exam: Present: normal inspection, full ROM, normal capillary refill. Absent: tenderness, pedal edema, joint swelling, calf tenderness Back exam: Present: normal inspection Neurological exam: Present: alert, oriented X3, CN II-XII intact Psychiatric exam: Present: normal affect, normal mood Skin exam: Present: warm, dry, intact, normal color. Absent: rash Course Vital Signs 10/08/23 10/08/23 10/08/23 20:27 21:00 21:02 Temperature 97.7 F Pulse Rate 89 87 86 Respiratory 24 18 22 Rate Blood Pressure 137/79 137/79 O2 Sat by Pulse 98 98 97 Oximetry Fraction of Inspired Oxygen (FIO2) 10/08/23 10/08/23 10/08/23 22:00 22:14 22:21 Temperature Pulse Rate 88 91 89 Respiratory 22 Rate Blood Pressure 122/78 O2 Sat by Pulse 100 Oximetry Fraction of Inspired Oxygen (FIO2) 10/08/23 10/09/23 10/09/23 23:00 04:08 05:48 Temperature 98.0 F Pulse Rate 95 96 97 Respiratory 21 27 H 24 Rate Blood Pressure 129/76 117/71 109/68 O2 Sat by Pulse 99 92 L 93 L Oximetry Fraction of Inspired Oxygen (FIO2) 10/09/23 10/09/23 10/09/23 08:12 08:16 08:25 Temperature Pulse Rate 103 H 103 H 103 H Respiratory 28 H Rate Blood Pressure 120/69 O2 Sat by Pulse 80 L Oximetry Fraction of Inspired Oxygen (FIO2) 10/09/23 10/09/23 10/09/23 08:26 09:30 10:00 Temperature Pulse Rate 105 H Respiratory 24 22 Rate Blood Pressure 115/69 O2 Sat by Pulse 95 96 93 L Oximetry Fraction of Inspired Oxygen (FIO2) 10/09/23 10/09/23 10/09/23 11:27 11:40 11:41 Temperature Pulse Rate 112 H 110 H Respiratory Rate Blood Pressure O2 Sat by Pulse 92 L Oximetry Fraction of Inspired Oxygen (FIO2) 10/09/23 10/09/23 10/09/23 12:00 13:00 14:00 Temperature Pulse Rate 111 H 110 H 111 H Respiratory 25 H 23 27 H Rate Blood Pressure 122/72 114/63 O2 Sat by Pulse 94 L 96 93 L Oximetry Fraction of Inspired Oxygen (FIO2) 10/09/23 10/09/23 10/09/23 15:24 15:34 15:45 Temperature 98.3 F Pulse Rate 113 H 108 H 107 H Respiratory 28 H Rate Blood Pressure 132/83 O2 Sat by Pulse 87 L Oximetry Fraction of Inspired Oxygen (FIO2) 10/09/23 10/09/23 10/09/23 16:00 17:00 17:51 Temperature Pulse Rate 112 H 112 H 111 H Respiratory 32 H 12 30 H Rate Blood Pressure 126/82 126/82 122/80 O2 Sat by Pulse 97 94 L 94 L Oximetry Fraction of Inspired Oxygen (FIO2) 10/09/23 10/09/23 10/09/23 19:22 19:47 19:56 Temperature Pulse Rate 105 H 108 H 107 H Respiratory 20 Rate Blood Pressure O2 Sat by Pulse 95 Oximetry Fraction of Inspired Oxygen (FIO2) 10/09/23 10/09/23 10/09/23 19:57 20:07 21:12 Temperature 98.7 F Pulse Rate 107 H 106 H 104 H Respiratory 20 Rate Blood Pressure 132/82 O2 Sat by Pulse 96 Oximetry Fraction of Inspired Oxygen (FIO2) 10/09/23 10/09/23 10/09/23 22:00 23:00 23:56 Temperature Pulse Rate 106 H 106 H 104 H Respiratory 23 26 H 22 Rate Blood Pressure 132/82 140/93 149/87 O2 Sat by Pulse 94 L 90 L 93 L Oximetry Fraction of Inspired Oxygen (FIO2) 10/10/23 10/10/23 10/10/23 00:08 00:21 00:30 Temperature Pulse Rate 106 H 105 H 107 H Respiratory 18 Rate Blood Pressure 130/77 O2 Sat by Pulse 95 Oximetry Fraction of Inspired Oxygen (FIO2) 10/10/23 10/10/23 10/10/23 02:31 02:34 02:51 Temperature Pulse Rate 114 H 112 H 117 H Respiratory 26 H Rate Blood Pressure 127/80 O2 Sat by Pulse 88 L 92 L Oximetry Fraction of Inspired Oxygen (FIO2) 10/10/23 10/10/23 10/10/23 02:58 03:30 04:00 Temperature Pulse Rate 112 H 129 H 124 H Respiratory 24 33 H 29 H Rate Blood Pressure 127/80 127/80 143/101 O2 Sat by Pulse 91 L 72 L 95 Oximetry Fraction of Inspired Oxygen (FIO2) 10/10/23 10/10/23 10/10/23 04:15 04:23 04:24 Temperature Pulse Rate 123 H Respiratory Rate Blood Pressure O2 Sat by Pulse 98 Oximetry Fraction of 100 100 Inspired Oxygen (FIO2) - Reevaluation(s) Reevaluation #1: 10/09/23 00:04 Medical record is reviewed Reevaluation #2: 10/09/23 00:04 Patient symptoms are improving here in the ER Reevaluation #3: 10/09/23 00:04 Informed results and questions are answered Reevaluation #4: 10/09/23 00:04 Was pt. sent in by a medical professional or institution (, PA, ROLLING UP MACHINE OPERATOR, urgent care, hospital, or [place] [facility] facility...) When possible be specific @ -no Did you speak to anyone other than the patient for history (EMS, parent, family, police, friend...)? What history was obtained from this source @ -no Did you review nursing and triage notes (agree or disagree)? Why? @ -agree Are old charts reviewed (outside hosp., previous admission, EMS record, old EKG, old radiological studies, urgent care reports/EKG's, [place] health [facility] facility records)? Report findings @ -yes Differential Diagnosis (chest pain, altered mental status, abdominal pain women, abdominal pain men, vaginal bleeding, weakness, fever, dyspnea, syncope, headache, dizziness, GI bleed, back pain, seizure, CVA, palpatations, mental health, musculoskeletal)? @ -prior EKG interpreted by me (3pts min.). @ -yes X-rays interpreted by me (1pt min.). @ -yes positive for pneumonia CT interpreted by me (1pt min.). @ -yes multilobar pneumonia U/S interpreted by me (1pt. min.). @ -no What testing was considered but not performed or refused? (CT, X-rays, U/S, labs)? Why? @ -none What meds were considered but not given or refused? Why? @ -none Did you discuss the management of the patient with other professionals (professionals i.e. , PA, ROLLING UP MACHINE OPERATOR, lab, RT, psych nurse, rn social work, immigration lawyer, teacher, traffic maintenance officer, director of casework department)? Give summary @ -no Was smoking cessation discussed for >3mins.? @ -no Were there social determinants of health that impacted care today? How? (Becca elessness, low income, unemployed, alcoholism, drug addiction, transportation, low edu. Level, literacy, decrease access to med. care, custodial, rehab)? @ -none Was there de-escalation of care discussed even if they declined (Discuss DNR or withdrawal of care, Hospice)? DNR status @ -no What co-morbidities impacted this encounter? (DM, HTN, Smoking, COPD, CAD, Cancer, CVA, ARF, Chemo, Hep., AIDS, mental health diagnosis, sleep apnea, morbid obesity)? @ -none Was patient admitted / discharged? Hospital course, mention meds given and route, prescriptions, significant lab abnormalities, going to OR and other pertinent info. @ - 48 female to the ED co sob weakness, cough congestion, chills with worsening symptoms despite treatment, patient does have multilobar pneumonia, patient will be admitted for IV abx and resuscitation Admitted Was critical care preformed (if so, how long)? @ -yes31 Undiagnosed new problem with uncertain prognosis? @ -no Drug Therapy requiring intensive monitoring for toxicity (Heparin, Nitro, Insulin, Cardizem)? @ -no Were any procedures done? @ -no Diagnosis/symptom? @ -Acute multilobar pneumonia and sepsis Acute, or Chronic, or Acute on Chronic? @ -Acute Uncomplicated (without systemic symptoms) or Complicated (systemic symptoms)? @ -Complicated Side effects of treatment? @ -no Exacerbation, Progression, or Severe Exacerbation? @ -exacerbation Poses a threat to life or bodily function? How? (Chest pain, [place], [place], pneumonia, PE, COPD, DKA, ARF, appy, cholecystitis, CVA, Diverticulitis, Homicidal, Suicidal, threat to staff... and all critical care pts) @ -yes negative for acute disease Reevaluation #5: 10/09/23 00:04 Differential Dyspnea: Coronary syndrome, arrhythmia, tamponade, asthma, COPD, pulmonary embolism, pneumonia, pneumothorax, pulmonary effusion, anaphylaxis, diabetic ketoacidosis, flailed chest, pulmonary contusion, diaphragmatic rupture, anemia, neuromuscular, this is not meant to be an all-inclusive list. - Consultations Consultation #1: spoke w [facility] who agrees to admit this patient Medical Decision Making - Medical Decision Making 48 female to the ED co sob weakness, cough congestion, chills with worsening symptoms despite treatment, patient will be admitted for IV abd and resuscitation - Lab Data Result diagrams: 10/16/23 03:53 10/16/23 03:53 Lab Results 10/08/23 10/08/23 10/08/23 Range/Units 21:08 21:08 21:08 WBC 16.5 H (3.8-10.6) k/uL RBC 3.15 L (3.80-5.40) m/uL Hgb 10.0 L (11.4-16.0) gm/dL Hct 32.2 L (34.0-46.0) % MCV 102.4 H (80.0-100.0) fL MCH 31.7 (25.0-35.0) pg MCHC 30.9 L (31.0-37.0) g/dL RDW 21.7 H (11.5-15.5) % Plt Count 188 (150-450) k/uL MPV 9.6 Neutrophils % 87 % Lymphocytes % 7 % Monocytes % 4 % Eosinophils % 1 % Basophils % 0 % Neutrophils # 14.4 H (1.3-7.7) k/uL Lymphocytes # 1.2 (1.0-4.8) k/uL Monocytes # 0.7 (0-1.0) k/uL Eosinophils # 0.1 (0-0.7) k/uL Basophils # 0.0 (0-0.2) k/uL Hypochromasia Marked Anisocytosis Moderate Macrocytosis Marked A PT 17.3 H (10.0-12.5) sec INR 1.7 H (<1.2) APTT 29.1 (22.0-30.0) sec D-Dimer 2.80 H (<0.60) mg/L FEU Sodium 132 L (137-145) mmol/L Potassium 3.7 (3.5-5.1) mmol/L Chloride 95 L (98-107) mmol/L Carbon Dioxide 24 (22-30) mmol/L Anion Gap 13 mmol/L BUN 18 H (7-17) mg/dL Creatinine 0.84 (0.52-1.04) mg/dL Est GFR (CKD-EPI)AfAm >90 (>60 ml/min/1.73 sqM) Est GFR (CKD-EPI)NonAf 84 (>60 ml/min/1.73 sqM) Glucose 270 H (74-99) mg/dL Lactic Ac Sepsis Rflx Plasma Lactic Acid Phi (0.7-2.0) mmol/L Calcium 8.1 L (8.4-10.2) mg/dL Phosphorus 3.9 (2.5-4.5) mg/dL Magnesium 2.0 (1.6-2.3) mg/dL Total Bilirubin 4.6 H (0.2-1.3) mg/dL AST 113 H (14-36) U/L ALT 68 H (4-34) U/L Alkaline Phosphatase 208 H (38-126) U/L Troponin I (0.000-0.034) ng/mL NT-Pro-B Natriuret Pep 2040 pg/mL Total Protein 7.9 (6.3-8.2) g/dL Albumin 3.0 L (3.5-5.0) g/dL Lipase 49 (23-300) U/L Serum Alcohol <10 mg/dL 10/08/23 10/08/23 10/08/23 Range/Units 21:08 21:08 21:57 WBC (3.8-10.6) k/uL RBC (3.80-5.40) m/uL Hgb (11.4-16.0) gm/dL Hct (34.0-46.0) % MCV (80.0-100.0) fL MCH (25.0-35.0) pg MCHC (31.0-37.0) g/dL RDW (11.5-15.5) % Plt Count (150-450) k/uL MPV Neutrophils % % Lymphocytes % % Monocytes % % Eosinophils % % Basophils % % Neutrophils # (1.3-7.7) k/uL Lymphocytes # (1.0-4.8) k/uL Monocytes # (0-1.0) k/uL Eosinophils # (0-0.7) k/uL Basophils # (0-0.2) k/uL Hypochromasia Anisocytosis Macrocytosis PT (10.0-12.5) sec INR (<1.2) APTT (22.0-30.0) sec D-Dimer (<0.60) mg/L FEU Sodium (137-145) mmol/L Potassium (3.5-5.1) mmol/L Chloride (98-107) mmol/L Carbon Dioxide (22-30) mmol/L Anion Gap mmol/L BUN (7-17) mg/dL Creatinine (0.52-1.04) mg/dL Est GFR (CKD-EPI)AfAm (>60 ml/min/1.73 sqM) Est GFR (CKD-EPI)NonAf (>60 ml/min/1.73 sqM) Glucose (74-99) mg/dL Lactic Ac Sepsis Rflx Y Plasma Lactic Acid Phi 7.0 H* (0.7-2.0) mmol/L Calcium (8.4-10.2) mg/dL Phosphorus (2.5-4.5) mg/dL Magnesium (1.6-2.3) mg/dL Total Bilirubin (0.2-1.3) mg/dL AST (14-36) U/L ALT (4-34) U/L Alkaline Phosphatase (38-126) U/L Troponin I <0.012 (0.000-0.034) ng/mL NT-Pro-B Natriuret Pep pg/mL Total Protein (6.3-8.2) g/dL Albumin (3.5-5.0) g/dL Lipase (23-300) U/L Serum Alcohol mg/dL - EKG Data -: EKG Interpreted by Me (EKG is sinus a 96 WV 145 QRS 90 QTC 391) - Radiology Data Radiology results: report reviewed (CTa CtabdPelvis positive for multilobar pneumonia, chest x-ray), image reviewed Critical Care Time Critical Care Time: Yes Total Critical Care Time: 31 Critical Care Time: 31 Disposition Clinical Impression: Bilateral pneumonia, Lactic acidosis, Aspiration pneumonia, Hypertensive urgency, Acute pancreatitis, Ascites Disposition: ADMITTED IP TO THIS HOSP Condition: Serious Is patient prescribed a controlled substance at d/c from ED?: No Time of Disposition: 23:55
[2023-10-08 21:20] LABS: Anisocytosis Moderate; Basophils % (A) 0 %; Eosinophils # (A) 0.1 k/uL (0-0.7); Eosinophils % (A) 1 %; HCT 32.2 % (34.0-46.0); Hypochromasia Marked; Lymphocytes # (A) 1.2 k/uL (1.0-4.8); Lymphocytes % (A) 7 %; MCH 31.7 pg (25.0-35.0); MCHC 30.9 g/dL (31.0-37.0); Macrocytosis Marked; Mean Platelet Volume 9.6; Monocytes # (A) 0.7 k/uL (0-1.0); Monocytes % (A) 4 %; Neutrophils # (A) 14.4 k/uL (1.3-7.7); Neutrophils % (A) 87 %; Platelet Count 188 k/uL (150-450); RBC 3.15 m/uL (3.80-5.40); RDW 21.7 % (11.5-15.5); WBC 16.5 k/uL (3.8-10.6)
[2023-10-08 21:22] LABS: MCV 102.4 fL (80.0-100.0)
[2023-10-08 21:39] LABS: INR 1.7 (<1.2)
[2023-10-08 21:40] LABS: Partial Thromboplastin Time 29.1 sec (22.0-30.0); Prothrombin Time 17.3 sec (10.0-12.5)
[2023-10-08 21:57] LABS: ALT 68 U/L (4-34); AST 113 U/L (14-36); African American GFR (CKD) >90 (>60 ml/min/1.73 sqM); Alcohol <10 mg/dL; Alkaline Phosphatase 208 U/L (38-126); Anion Gap 13 mmol/L; Blood Urea Nitrogen 18 mg/dL (7-17); Calcium 8.1 mg/dL (8.4-10.2); Carbon Dioxide 24 mmol/L (22-30); Chloride 95 mmol/L (98-107); Glucose 270 mg/dL (74-99); Lipase 49 U/L (23-300); Non-African American GFR(CKD) 84 (>60 ml/min/1.73 sqM); Phosphorus 3.9 mg/dL (2.5-4.5); Potassium 3.7 mmol/L (3.5-5.1); Sodium 132 mmol/L (137-145); Total Bilirubin 4.6 mg/dL (0.2-1.3); Total Protein 7.9 g/dL (6.3-8.2)
[2023-10-08 22:04] LABS: NT-Pro-B-Type Natriuretic Pept 2040 pg/mL
[2023-10-08] MEDS: IPRATROPIUM-ALBUTEROL 3 ML NEB INHALATION STA (22:14)
[2023-10-08] MEDS: SODIUM CHLORIDE 0.9% 500 ML 500 ML IV STA (22:24)
--- NOTE | 2023-10-08 23:09 | CT ---
ADDENDUM - Added by Alber Boyd MD on 10/08/2023 11:10 PM (-05:00) EXAM: CT Angiography Chest With Intravenous Contrast CLINICAL HISTORY: ITS.REASON CT Reason: pain TECHNIQUE: Axial computed tomographic angiography images of the chest with intravenous contrast. CTDI is 6.6 mGy and DLP is 261.3 mGy-cm. This CT exam was performed using one or more of the following dose reduction techniques: automated exposure control, adjustment of the mA and/or kV according to patient size, and/or use of iterative reconstruction technique. MIP reconstructed images were created and reviewed. COMPARISON: No relevant prior studies available. FINDINGS: Patchy bilateral airspace consolidation, consistent with multilobar pneumonia. No pleural effusion or pneumothorax. Cardiomegaly. No pericardial effusion. No acute pulmonary embolism. Non-aneurysmal aorta. The osseous structures are intact. IMPRESSION: No acute pulmonary embolism. Patchy bilateral airspace consolidation, consistent with multilobar pneumonia. EXAM: CT Angiography Chest With Intravenous Contrast CLINICAL HISTORY: ITS.REASON CT Reason: pain TECHNIQUE: Axial computed tomographic angiography images of the chest with intravenous contrast. CTDI is 6.6 mGy and DLP is 261.3 mGy-cm. This CT exam was performed using one or more of the following dose reduction techniques: automated exposure control, adjustment of the mA and/or kV according to patient size, and/or use of iterative reconstruction technique. MIP reconstructed images were created and reviewed. COMPARISON: No relevant prior studies available. FINDINGS: Pulmonary arteries: Unremarkable. No pulmonary embolism. Aorta: No acute findings. No thoracic aortic aneurysm. Lungs: Patchy bilateral airspace consolidation, consistent with multilobar pneumonia. Pleural space: Unremarkable. No significant effusion. No pneumothorax. Heart: Unremarkable. No cardiomegaly. No significant pericardial effusion. No evidence of RV dysfunction. Bones/joints: No acute fracture. No dislocation. Soft tissues: Unremarkable. Lymph nodes: Unremarkable. No enlarged lymph nodes. Stomach and bowel: Wall thickening of small bowel, correlate for mild enteritis versus spontaneous bacterial peritonitis. Intraperitoneal space: Hepatic steatosis. Abdominal ascites. IMPRESSION: 1. Patchy bilateral airspace consolidation, consistent with multilobar pneumonia. 2. Hepatic steatosis. Abdominal ascites. 3. Wall thickening of small bowel, correlate for mild enteritis versus spontaneous bacterial peritonitis.
--- NOTE | 2023-10-08 23:10 | CT ---
EXAM: CT Abdomen and Pelvis With Intravenous Contrast CLINICAL HISTORY: ITS.REASON CT Reason: pain TECHNIQUE: Axial computed tomography images of the abdomen and pelvis with intravenous contrast. CTDI is 10.5 mGy and DLP is 489.2 mGy-cm. This CT exam was performed using one or more of the following dose reduction techniques: automated exposure control, adjustment of the mA and/or kV according to patient size, and/or use of iterative reconstruction technique. COMPARISON: No relevant prior studies available. FINDINGS: Lung bases: Patchy bilateral airspace consolidation, consistent with multilobar pneumonia. ABDOMEN: Liver: Unremarkable. No mass. Gallbladder and bile ducts: Unremarkable. No calcified stones. No ductal dilation. Pancreas: Unremarkable. No mass. No ductal dilation. Spleen: Unremarkable. No splenomegaly. Adrenals: Unremarkable. No mass. Kidneys and ureters: Unremarkable. No solid mass. No hydronephrosis. Stomach and bowel: Wall thickening of small bowel, correlate for mild enteritis versus spontaneous bacterial peritonitis. No obstruction. PELVIS: Appendix: No findings to suggest acute appendicitis. Bladder: Unremarkable. No mass. Reproductive: Unremarkable as visualized. ABDOMEN and PELVIS: Intraperitoneal space: Hepatic steatosis. Abdominal ascites. No free air. Bones/joints: No acute fracture. No dislocation. Soft tissues: Unremarkable. Vasculature: Unremarkable. No abdominal aortic aneurysm. Lymph nodes: Unremarkable. No enlarged lymph nodes. IMPRESSION: 1. Patchy bilateral airspace consolidation, consistent with multilobar pneumonia. 2. Hepatic steatosis. Abdominal ascites. 3. Wall thickening of small bowel, correlate for mild enteritis versus spontaneous bacterial peritonitis.
[2023-10-08] MEDS ORDERED: PNEUMONIA PROTOCOL UTILIZED 1 EACH MISC PO PRN (23:59)
[2023-10-09] MEDS: AZITHROMYCIN 500 MG in SODIUM CHLORIDE 0.9% 250 ML IVPB STA (01:29)
[2023-10-09] MEDS: SODIUM CHLORIDE 0.9% 1,000 ML IV SCH ×2 (01:30→10:49)
[2023-10-09] MEDS: NICOTINE 21MG/24HR PATCH TRANSDERM SCH (01:40)
--- NOTE | 2023-10-09 02:03 | XR ---
EXAM: XR chest 1V portable CLINICAL INDICATION:Female, 48 years old with history of sob; [facility] COMPARISON: None. TECHNIQUE: Chest single view. FINDINGS: Lines/tubes/devices: EKG leads and other extraneous densities over the chest. No indwelling lines are seen. Cardiomediastinum: Cardiac silhouette appears upper normal in size. Unremarkable mediastinal silhouette. Vasculature: No increased pulmonary vasculature. Lungs/pleura: Mild asymmetric elevation of the right hemidiaphragm. There are increased interstitial markings bilat erally with multifocal patchy airspace opacities bilaterally mostly in the mid to lower lungs. Strand y opacities in the lung bases may suggest additional atelectasis. Partial blunting of the left costop hrenic angle, probably related to the lung opacities with small effusion not excluded. Small pulmonar y nodules cannot be excluded in this setting. No visible pneumothorax. Bones/soft tissues: Bony thorax appears grossly intact as seen. Regional soft tissues appear unremarkable. No subdiaphrag matic free air is seen. IMPRESSION: Bilateral pulmonary opacities likely relate to multifocal pneumonia. Follow-up to resolution.
[2023-10-09] MEDS: MORPHINE SULFATE 4 MG/ML SYRINGE IV PRN (02:50)
[2023-10-09] MEDS: LORazepam 2 MG/ML INJ IV PRN (04:25)
[2023-10-09] MEDS: IPRATROPIUM-ALBUTEROL 3 ML NEB INHALATION PRN (08:13)
[2023-10-09] MEDS: THIAMINE 100 MG TAB PO SCH (08:15)
[2023-10-09] MEDS: FOLIC ACID 1 MG TAB PO SCH (08:15)
[2023-10-09] MEDS: MULTIVITAMINS, THERA 1 EACH TAB PO SCH (08:15)
--- NOTE | 2023-10-09 08:21 | XR ---
EXAMINATION TYPE: XR chest 1V DATE OF EXAM: 10/09/2023 5:59 AM CLINICAL INDICATION:Female, 48 years old with history of pneumonia; [facility] COMPARISON: Chest radiographs from 10/08/2023 TECHNIQUE: XR chest 1V Frontal view of the chest. FINDINGS: Lungs/Pleura: Similar multifocal airspace opacities. No evidence of pneumothorax or pleural effusion. Pulmonary vascularity: Unremarkable. Heart/mediastinum: Cardiomediastinal silhouette is unremarkable. Musculoskeletal: No acute osseous pathology. Other findings: None IMPRESSION: Similar multifocal airspace opacities.
[2023-10-09] MEDS ORDERED: DEXTROSE 50% SYRINGE 50 ML IVP PRN (10:20)
[2023-10-09] MEDS: PANTOPRAZOLE 40 MG TABLET PO SCH (10:45)
[2023-10-09] MEDS: metroNIDAZOLE-NS PMX 500 MG in SALINE 1 100ML.BAG IVPB SCH (10:46)
[2023-10-09] MEDS: IPRATROPIUM-ALBUTEROL 3 ML NEB INHALATION SCH (11:54)
[2023-10-09 12:23] LABS: Glucose,Whole Blood 175 mg/dL (70-110)
[2023-10-09] MEDS: INSULIN ASPART (NovoLOG) 100 UNIT/ML VIAL SQ SCH (12:33)
[2023-10-09] MEDS: methylPREDNISolone SOD SUCCI 125 MG/2 ML VIAL IV SCH (12:34)
[2023-10-09] MEDS: PIPERACILLIN-TAZOBACTAM 3.375 GM in SODIUM CHLORIDE 0.9% 100 ML IVPB SCH (12:35)
--- NOTE | 2023-10-09 14:08 | P.CNPUL ---
History of Present Illness Consult date: 10/09/23 Requesting physician: Hugo Nolen Reason for consult: dyspnea, COPD, pneumonia, abnormal CXR/CT Chief complaint: Shortness of breath, cough 2 weeks History of present illness: This is a pleasant 48-year-old female patient with a known history of alcoholism with subsequent cirrhosis and chronic pancreatitis. Quit drinking approximately 5 years ago. She does have chronic and ongoing tobacco dependence, anxiety/depression, gastroesophageal reflux disease. She has a 2 week history of initially a dry nonproductive cough that had progressed into a loose congested cough with shortness of breath. She presented here to the emergency room yesterday. DT scan of the abdomen and pelvis revealed patchy bilateral airspace consolidation consistent with multifocal lobar pneumonia. Hepatic steatosis. Abdominal ascites. Wall thickening of the small bowel, correlate for mild enteritis versus spontaneous bacterial peritonitis. CT angiogram ruled out pulmonary embolism. There is again noted patchy bilateral airspace consolidation consistent with multilobar pneumonia. Chest x-ray shows similar multifocal airspace opacities. Count 16.5. Hemoglobin 10.0. Platelets 188. INR 1.7. D-dimer 2.80. Sodium 132. Potassium 3.7. Bicarb 24. BUN 18. Creatinine 0.84. Glucose 270. Initial lactic acid 7.0. Currently 2.2. AST 113. ALT 68. Alk phos 208. ProBNP 2040. Lipase 49. Serum alcohol less than 10. Viral screen negative. She is seen today in consultation in the emergency department. She is currently resting on a stretcher. She is awake and alert. She is requiring 10 L high flow nasal cannula to maintain O2 saturations in the 90s. She drops into the 70s on room air. She was initiated on ceftriaxone and azithromycin azithromycin. NicoDerm patch in place. She received 3 L of fluid resuscitation. Normal saline at 100 ML's per hour. Review of Systems REVIEW OF SYSTEMS: CONSTITUTIONAL: Denies any recent significant weight loss or weight gain. EYES: Denies change in vision. EARS, NOSE, MOUTH, THROAT: Denies headaches, denies sore throat. CARDIOVASCULAR: Denies chest pain, palpitations or syncopal episodes. RESPIRATORY: Positive for shortness of breath, cough, congestion no hemoptysis. GASTROINTESTINAL: Positive for abdominal distention and bloating. GENITOURINARY: Denies hematuria, denies infections. MUSKULOSKELETAL: Denies pain, denies swelling. INTEGUMENTARY: Denies rash, denies eczema. NEUROLOGICAL: Denies recent memory loss, no recent seizure activity. PSYCHIATRIC: Denies anxiety, denies depression. HEMATOLOGIC/LYMPHATIC: Denies anemia, denies enlarged lymph nodes. Past Medical History Past Medical History: No Reported History Additional Past Medical History / Comment(s): Pt admitted to [facility] on 08/05/19 with acute pancreatitis/htn urgency-she signed out AMA to go home and care for her dog (couldn't find anyone to help). Other hx: IBS, bronchitis, ETOH abuse. History of Any Multi-Drug Resistant Organisms: None Reported Past Surgical History: No Surgical Hx Reported Additional Past Surgical History / Comment(s): EGD, colonoscopies. Past Anesthesia/Blood Transfusion Reactions: No Reported Reaction Past Psychological History: Anxiety, Depression Past Alcohol Use History: Daily, Heavy Past Drug Use History: None Reported - Past Family History Father Additional Family Medical History / Comment(s): Father is from [place]. Mother Family Medical History: No Reported History Additional Family Medical History / Comment(s): Mother is alive with history of asthma, pancreatitis, alchohol abuse. Patient does not have any brothers, sisters, children. Medications and Allergies Home Medications Medication Instructions Recorded Confirmed Type PARoxetine HCL [Paxil] 40 mg PO HS 05/13/18 10/08/23 History ALPRAZolam [Xanax] 1 mg PO HS 08/29/20 10/08/23 History Azithromycin [Zithromax] 500 mg PO DAILY 10/08/23 10/08/23 History Furosemide [Lasix] 20 mg PO HS 10/08/23 10/08/23 History Pantoprazole Sodium [Protonix] 80 mg PO DAILY 10/08/23 10/08/23 History Purezzz 1 tab PO HS 10/08/23 10/08/23 History Spironolactone [Aldactone] 50 mg PO DAILY 10/08/23 10/08/23 History diphenhydrAMINE HCL [Benadryl] 25 mg PO HS 10/08/23 10/08/23 History guaiFENesin [Mucinex] 600 mg PO Q12H 10/08/23 10/08/23 History predniSONE [Deltasone] 40 mg PO DAILY 10/08/23 10/08/23 History Allergies Allergy/AdvReac Type Severity Reaction Status Date / Time No Known Allergies Allergy Verified 10/08/23 22:08 Physical Exam Vitals: Vital Signs Temp Pulse Resp BP Pulse Ox 10/09/23 12:00 111 H 25 H 122/72 94 L 10/09/23 11:41 92 L 10/09/23 11:40 110 H 10/09/23 11:27 112 H 10/09/23 10:00 22 93 L 10/09/23 09:30 105 H 24 115/69 96 10/09/23 08:26 95 10/09/23 08:25 103 H 10/09/23 08:16 103 H 10/09/23 08:12 103 H 28 H 120/69 80 L 10/09/23 05:48 98.0 F 97 24 109/68 93 L 10/09/23 04:08 96 27 H 117/71 92 L 10/08/23 23:00 95 21 129/76 99 10/08/23 22:21 89 10/08/23 22:14 91 10/08/23 22:00 88 22 122/78 100 10/08/23 21:02 97.7 F 86 22 137/79 97 10/08/23 21:00 87 18 137/79 98 10/08/23 20:27 89 24 98 Intake and Output 10/08/23 10/09/23 10/09/23 22:59 06:59 14:59 Other: Weight 54.431 kg GENERAL EXAM: Alert, pleasant 48-year-old female, on 10 L high flow nasal cannula, fairly comfortable in no apparent distress. HEAD: Normocephalic. EYES: Normal reaction of pupils, equal size. NOSE: Clear with pink turbinates. THROAT: No erythema or exudates. NECK: No masses, no JVD. CHEST: No chest wall deformity. LUNGS: Equal air entry with bilateral scattered rhonchi, end expiratory wheeze, diminished. CVS: S1 and S2 normal with no audible murmur, regular rhythm. ABDOMEN: Abdominal distention, normal bowel sounds, no guarding or rigidity. SPINE: No scoliosis or deformity SKIN: No rashes CENTRAL NERVOUS SYSTEM: No focal deficits, tone is normal in all 4 extremities. EXTREMITIES: There is no peripheral edema. No clubbing, no cyanosis. Peripheral pulses are intact. Results - Laboratory Findings CBC and BMP: 10/08/23 21:08 10/08/23 21:08 PT/INR, D-dimer PT 17.3 sec (10.0-12.5) H 10/08/23 21:08 INR 1.7 (<1.2) H 10/08/23 21:08 D-Dimer 2.80 mg/L FEU (<0.60) H 10/08/23 21:08 Abnormal lab findings: Abnormal Labs 10/08/23 10/08/23 10/08/23 21:08 21:08 21:08 WBC 16.5 H RBC 3.15 L Hgb 10.0 L Hct 32.2 L MCV 102.4 H MCHC 30.9 L RDW 21.7 H Neutrophils # 14.4 H Macrocytosis Marked A PT 17.3 H INR 1.7 H D-Dimer 2.80 H Sodium 132 L Chloride 95 L BUN 18 H Glucose 270 H POC Glucose (mg/dL) Plasma Lactic Acid Phi Calcium 8.1 L Total Bilirubin 4.6 H AST 113 H ALT 68 H Alkaline Phosphatase 208 H Albumin 3.0 L 10/08/23 10/09/23 10/09/23 21:08 00:12 03:09 WBC RBC Hgb Hct MCV MCHC RDW Neutrophils # Macrocytosis PT INR D-Dimer Sodium Chloride BUN Glucose POC Glucose (mg/dL) Plasma Lactic Acid Phi 7.0 H* 4.9 H* 4.1 H* Calcium Total Bilirubin AST ALT Alkaline Phosphatase Albumin 10/09/23 10/09/23 10/09/23 05:54 09:21 12:21 WBC RBC Hgb Hct MCV MCHC RDW Neutrophils # Macrocytosis PT INR D-Dimer Sodium Chloride BUN Glucose POC Glucose (mg/dL) 175 H Plasma Lactic Acid Phi 2.8 H* 4.6 H* Calcium Total Bilirubin AST ALT Alkaline Phosphatase Albumin 10/09/23 12:30 WBC RBC Hgb Hct MCV MCHC RDW Neutrophils # Macrocytosis PT INR D-Dimer Sodium Chloride BUN Glucose POC Glucose (mg/dL) Plasma Lactic Acid Phi 2.2 H* Calcium Total Bilirubin AST ALT Alkaline Phosphatase Albumin - Diagnostic Findings Chest x-ray: image reviewed CT scan - chest: image reviewed Assessment and Plan Assessment: Acute hypoxic respiratory failure secondary to acute bilateral multilobar pneumonia Acute exacerbation of chronic obstructive pulmonary disease secondary to above Chronic and ongoing tobacco dependence History of heavy alcohol abuse however quit 5 years ago History of cirrhosis secondary to above History of chronic pancreatitis secondary to above History of anxiety/depression Plan: The patient was seen and evaluated CAT scan, chest x-ray, labs and medications reviewed Discontinue ceftriaxone and azithromycin Initiate Zosyn Initiate DuoNeb inhalations, Pulmicort and Perforomist inhalations, Solu-Medrol Titrate the FiO2 as tolerated NicoDerm patch in place Educated regarding the importance of complete smoking cessation We will continue to follow and make further recommendations based on her clinica l status I have personally seen and examined the patient, performed the documentation and the assessment and plan as written. Number of minutes spent on the visit: 20.
--- NOTE | 2023-10-09 16:39 | US ---
EXAMINATION TYPE: US abdomen limited DATE OF EXAM: 10/09/2023 COMPARISON: NONE CLINICAL INDICATION: Female, 48 years old with history of ascites; Abdominal ascites seen in all 4 quadrants and midline pelvis IMPRESSION: 1. Ascites in 4 quadrants of the abdomen.
[2023-10-09 17:36] LABS: Glucose,Whole Blood 206 mg/dL (70-110)
[2023-10-09] MEDS: ONDANSETRON 4 MG/2 ML VIAL IVP PRN (18:28)
[2023-10-09] MEDS: BUDESONIDE 1 MG/2 ML NEBU INHALATION SCH (19:46)
[2023-10-09] MEDS: FORMOTEROL FUMARATE 20 MCG/2 ML NEBU INHALATION SCH (19:46)
[2023-10-09 20:20] LABS: Glucose,Whole Blood 212 mg/dL (70-110)
[2023-10-09] MEDS: PARoxetine 20 MG TAB PO SCH (20:30)
[2023-10-09] MEDS ORDERED: AZITHROMYCIN 500 MG in SODIUM CHLORIDE 0.9% 250 ML IVPB SCH (21:00)
--- NOTE | 2023-10-09 22:02 | P.HPIM ---
History of Present Illness H&P Date: 10/09/23 Chief Complaint: Shortness of breath Patient is a 48-year-old female with a past medical history of severe alcohol abuse, quit 5 years ago, alcoholic liver cirrhosis and is on follow-up with her managing editor at [facility], IBS, anxiety/depression and presents to ER wi th complaints of worsening shortness of breath. Patient states that she has been having shortness of breath for the past week and a half and did get worse in the last few days. Patient tried using her breathing treatments at home but did not get improvement. Patient was recently given antibiotics and prednisone by her physician. She has been increasingly weak and not feeling well. Patient presented to ER for evaluation. He was also complaining of cough without any sputum production. Also complaining of chest tightness and anxiety. Denies any leg swelling. No nausea or vomiting. Patient is also having increased abdominal girth. No prior history of paracentesis as per patient. Denies any fever at home. On admission patient was tachycardic and tachypneic and pulse ox 80% on room ai r. Currently requiring 8 L of oxygen via nasal cannula. CT of the abdomen pelvis showed patchy bilateral airspace consolidation consistent with multilobar pneumonia. Hepatic steatosis, abdominal ascites. Wall thickening of small bowel correlate for mild enteritis versus spontaneous bacterial peritonitis. CTA chest showed no PE. Patchy bilateral airspace consolidation consistent with multilobar pneumonia. Chest x-ray showed similar multifocal airspace opacities. Laboratory data showed WBC 16.5 hemoglobin 10.0 MCV 102.4 and platelets 188 and neutrophils 14.4 INR 1.7, D-dimer 2.8 Sodium 132 potassium 3.7 chloride 95 bicarbonate 24 BUN 18 and creatinine 0.84 and blood sugar 270 and lactic acid 7.0 on admission, calcium 8.1, total bilirubin level is 4.6 AST 113 ALT 68 and alk phos 208 Troponin 0.012 and proBNP 2040 and albumin 3.0 Influenza A, B, RSV and COVID-19 PCR not detected. Review of Systems Constitutional: Patient denies any fever or chills . Generalized weakness and malaise. Abdomen: Patient denied any nausea or vomiting or abd. pain Cardiovascular: Patient denies any chest pain. Positive for short of breath no palpitations. Minimal leg swelling Respiratory: Does have cough without positive for sputum production.. Neurologic: Patient denied any numbness or tingling or headache. Musculoskeletal: Patient denies any complaints of joint swelling or deformity. Skin: Negative Psychiatric: Negative Endocrine: No heat or cold intolerance. No recent weight gain. Genitourinary: No dysuria or hematuria. All other 14 point ROS negative except the above Past Medical History Past Medical History: No Reported History Additional Past Medical History / Comment(s): Pt admitted to [facility] on 08/05/19 with acute pancreatitis/htn urgency-she signed out AMA to go home and care for her dog (couldn't find anyone to help). Other hx: IBS, bronchitis, ETOH abuse. History of Any Multi-Drug Resistant Organisms: None Reported Past Surgical History: No Surgical Hx Reported Additional Past Surgical History / Comment(s): EGD, colonoscopies. Past Anesthesia/Blood Transfusion Reactions: No Reported Reaction Past Psychological History: Anxiety, Depression Past Alcohol Use History: Daily, Heavy Past Drug Use History: None Reported - Past Family History Father Additional Family Medical History / Comment(s): Father is from [place]. Mother Family Medical History: No Reported History Additional Family Medical History / Comment(s): Mother is alive with history of asthma, pancreatitis, alchohol abuse. Patient does not have any brothers, sisters, children. Medications and Allergies Home Medications Medication Instructions Recorded Confirmed Type PARoxetine HCL [Paxil] 40 mg PO HS 05/13/18 10/08/23 History ALPRAZolam [Xanax] 1 mg PO HS 08/29/20 10/08/23 History Azithromycin [Zithromax] 500 mg PO DAILY 10/08/23 10/08/23 History Furosemide [Lasix] 20 mg PO HS 10/08/23 10/08/23 History Pantoprazole Sodium [Protonix] 80 mg PO DAILY 10/08/23 10/08/23 History Purezzz 1 tab PO HS 10/08/23 10/08/23 History Spironolactone [Aldactone] 50 mg PO DAILY 10/08/23 10/08/23 History diphenhydrAMINE HCL [Benadryl] 25 mg PO HS 10/08/23 10/08/23 History guaiFENesin [Mucinex] 600 mg PO Q12H 10/08/23 10/08/23 History predniSONE [Deltasone] 40 mg PO DAILY 10/08/23 10/08/23 History Allergies Allergy/AdvReac Type Severity Reaction Status Date / Time No Known Allergies Allergy Verified 10/08/23 22:08 Physical Exam Vitals: Vital Signs Temp Pulse Resp BP Pulse Ox 10/09/23 10:00 22 93 L 10/09/23 09:30 105 H 24 115/69 96 10/09/23 08:26 95 10/09/23 08:25 103 H 10/09/23 08:16 103 H 10/09/23 08:12 103 H 28 H 120/69 80 L 10/09/23 05:48 98.0 F 97 24 109/68 93 L 10/09/23 04:08 96 27 H 117/71 92 L 10/08/23 23:00 95 21 129/76 99 10/08/23 22:21 89 10/08/23 22:14 91 10/08/23 22:00 88 22 122/78 100 10/08/23 21:02 97.7 F 86 22 137/79 97 10/08/23 21:00 87 18 137/79 98 10/08/23 20:27 89 24 98 Intake and Output 10/08/23 10/09/23 10/09/23 22:59 06:59 14:59 Other: Weight 54.431 kg PHYSICAL EXAMINATION: Patient is lying in the bed, no acute distress, awake alert and oriented.. On 8L high flow oxygen. HEENT: Normocephalic. Neck is supple. Pupils reactive. Nostrils clear. Oral cavity is moist. Neck reveals no JVD, carotid bruits, or thyromegaly. CHEST EXAMINATION: Trachea is central. Symmetrical expansion. Bilateral scattered coarse sounds and diminished air entry. Nonlabored breathing. CARDIAC: Normal S1, S2 with no gallops. No murmurs ABDOMEN: Soft. Bowel sounds present. Nontender. Abdominal distention this ascites.. No abdominal bruits. Extremities: Trace bilateral pedal edema. No clubbing or cyanosis Neurologically awake, alert, oriented x3 with well-coordinated movements. No focal deficits noted Skin: No rash or skin lesions. Psychiatric: Coperative. Nonsuicidal, Musculoskeletal: No joint swelling or deformity. Normal range of motion. Results CBC & Chem 7: 10/08/23 21:08 10/08/23 21:08 Labs: Abnormal Lab Results - Last 24 Hours (Table) 10/08/23 10/08/23 10/08/23 Range/Units 21:08 21:08 21:08 WBC 16.5 H (3.8-10.6) k/uL RBC 3.15 L (3.80-5.40) m/uL Hgb 10.0 L (11.4-16.0) gm/dL Hct 32.2 L (34.0-46.0) % MCV 102.4 H (80.0-100.0) fL MCHC 30.9 L (31.0-37.0) g/dL RDW 21.7 H (11.5-15.5) % Neutrophils # 14.4 H (1.3-7.7) k/uL Macrocytosis Marked A PT 17.3 H (10.0-12.5) sec INR 1.7 H (<1.2) D-Dimer 2.80 H (<0.60) mg/L FEU Sodium 132 L (137-145) mmol/L Chloride 95 L (98-107) mmol/L BUN 18 H (7-17) mg/dL Glucose 270 H (74-99) mg/dL Plasma Lactic Acid Phi (0.7-2.0) mmol/L Calcium 8.1 L (8.4-10.2) mg/dL Total Bilirubin 4.6 H (0.2-1.3) mg/dL AST 113 H (14-36) U/L ALT 68 H (4-34) U/L Alkaline Phosphatase 208 H (38-126) U/L Albumin 3.0 L (3.5-5.0) g/dL 10/08/23 10/09/23 10/09/23 Range/Units 21:08 00:12 03:09 WBC (3.8-10.6) k/uL RBC (3.80-5.40) m/uL Hgb (11.4-16.0) gm/dL Hct (34.0-46.0) % MCV (80.0-100.0) fL MCHC (31.0-37.0) g/dL RDW (11.5-15.5) % Neutrophils # (1.3-7.7) k/uL Macrocytosis PT (10.0-12.5) sec INR (<1.2) D-Dimer (<0.60) mg/L FEU Sodium (137-145) mmol/L Chloride (98-107) mmol/L BUN (7-17) mg/dL Glucose (74-99) mg/dL Plasma Lactic Acid Phi 7.0 H* 4.9 H* 4.1 H* (0.7-2.0) mmol/L Calcium (8.4-10.2) mg/dL Total Bilirubin (0.2-1.3) mg/dL AST (14-36) U/L ALT (4-34) U/L Alkaline Phosphatase (38-126) U/L Albumin (3.5-5.0) g/dL 10/09/23 Range/Units 05:54 WBC (3.8-10.6) k/uL RBC (3.80-5.40) m/uL Hgb (11.4-16.0) gm/dL Hct (34.0-46.0) % MCV (80.0-100.0) fL MCHC (31.0-37.0) g/dL RDW (11.5-15.5) % Neutrophils # (1.3-7.7) k/uL Macrocytosis PT (10.0-12.5) sec INR (<1.2) D-Dimer (<0.60) mg/L FEU Sodium (137-145) mmol/L Chloride (98-107) mmol/L BUN (7-17) mg/dL Glucose (74-99) mg/dL Plasma Lactic Acid Phi 2.8 H* (0.7-2.0) mmol/L Calcium (8.4-10.2) mg/dL Total Bilirubin (0.2-1.3) mg/dL AST (14-36) U/L ALT (4-34) U/L Alkaline Phosphatase (38-126) U/L Albumin (3.5-5.0) g/dL Thrombosis Risk Factor Assmnt - DVT/VTE Prophylaxis DVT/VTE Prophylaxis: Pharmacologic Prophylaxis ordered Assessment and Plan Assessment: Acute hypoxic respiratory failure secondary to multifocal pneumonia. Patient is 8 L high flow oxygen currently. Multifocal pneumonia Sepsis secondary to above COPD with acute exacerbation Lactic acidosis 7.0 on admission Alcoholic liver cirrhosis Ascites Hepatic steatosis and hyperbilirubinemia and elevated liver enzymes History of severe alcohol abuse. Quit 5 years ago History of chronic pancreatitis Anxiety/depression DVT prophylaxis Plan: Patient will be continued on oxygen supplementation. Continue with antibiotics ceftriaxone and azithromycin and Flagyl was added for possible enteritis per CT. Will be continued on IV hydration. Procalcitonin was ordered. Follow-up urine Legionella antigen Continue with DuoNebs. Ultrasound-guided paracentesis was ordered. Pulmonary consult for evaluation. Prognosis is guarded at this time. Time with Patient: Greater than 30
[2023-10-10] MEDS: IPRATROPIUM-ALBUTEROL 3 ML NEB INHALATION STA (02:33)
[2023-10-10 03:05] LABS: Glucose,Whole Blood 209 mg/dL (70-110)
[2023-10-10 03:43] LABS: ABG Base Excess -3.1 mmol/L; ABG HCO3 23 mmol/L (21-25); ABG Oxygen Saturation 79.2 % (94-97); ABG PCO2 42 mmHg (35-45); ABG PH 7.34 (7.35-7.45); ABG TCO2 24 mmol/L (19-24); Allen Test Performed? Yes
[2023-10-10] MEDS: FUROSEMIDE 10 MG/ML 4 ML VIAL IV STA ×2 (03:49→15:46)
[2023-10-10 04:13] LABS: Glucose,Whole Blood 203 mg/dL (70-110)
[2023-10-10 04:17] LABS: ABG PO2 49 mmHg (83-108)
--- NOTE | 2023-10-10 04:24 | XR ---
EXAM: XR Chest, 1 View CLINICAL HISTORY: XR Reason: Resp distress TECHNIQUE: Frontal view of the chest. COMPARISON: October 09, 2023 FINDINGS: Lungs: Moderate diffuse infiltrates throughout the mid to lower lungs bilaterally consistent with pneumonia and/or edema, slightly worse than previous. Pleural space: Unremarkable. No pneumothorax. Heart: The cardiac silhouette is partially obscured but does not appear to be enlarged. Mediastinum: Unremarkable. Normal mediastinal contour. Bones/joints: Unremarkable. No acute fracture. Upper abdomen: There is no pneumoperitoneum under the diaphragm. IMPRESSION: Moderate diffuse infiltrates throughout the mid to lower lungs bilaterally consistent with pneumonia and/or edema, slightly worse than previous.
[2023-10-10] MEDS: LORazepam 2 MG/ML INJ IV PRN ×2 (04:45→05:36)
[2023-10-10 05:26] LABS: ALT 41 U/L (4-34); AST 104 U/L (14-36); African American GFR (CKD) >90 (>60 ml/min/1.73 sqM); Albumin 2.9 g/dL (3.5-5.0); Alkaline Phosphatase 186 U/L (38-126); Anion Gap 11 mmol/L; Blood Urea Nitrogen 15 mg/dL (7-17); Calcium 8.4 mg/dL (8.4-10.2); Carbon Dioxide 20 mmol/L (22-30); Chloride 108 mmol/L (98-107); Glucose 206 mg/dL (74-99); Non-African American GFR(CKD) >90 (>60 ml/min/1.73 sqM); Potassium 3.6 mmol/L (3.5-5.1); Sodium 139 mmol/L (137-145); Total Bilirubin 4.5 mg/dL (0.2-1.3); Total Protein 7.7 g/dL (6.3-8.2)
[2023-10-10 05:39] LABS: Anisocytosis Moderate; Basophils % (A) 0 %; Eosinophils % (A) 0 %; HCT 34.8 % (34.0-46.0); HGB 10.3 gm/dL (11.4-16.0); Hypochromasia Marked; Lymphocytes # (A) 0.6 k/uL (1.0-4.8); Lymphocytes % (A) 2 %; MCH 31.4 pg (25.0-35.0); MCHC 29.6 g/dL (31.0-37.0); MCV 106.2 fL (80.0-100.0); Macrocytosis Marked; Mean Platelet Volume 9.8; Monocytes # (A) 0.6 k/uL (0-1.0); Monocytes % (A) 2 %; Neutrophils # (A) 25.2 k/uL (1.3-7.7); Neutrophils % (A) 95 %; Platelet Count 190 k/uL (150-450); RBC 3.28 m/uL (3.80-5.40); RDW 21.6 % (11.5-15.5); WBC 26.6 k/uL (3.8-10.6)
[2023-10-10] MEDS: FUROSEMIDE 10 MG/ML 2 ML VIAL IV STA (06:29)
[2023-10-10 06:39] LABS: ABG Base Excess -3.2 mmol/L; ABG HCO3 23 mmol/L (21-25); ABG Oxygen Saturation 94.7 % (94-97); ABG PCO2 43 mmHg (35-45); ABG PH 7.34 (7.35-7.45); ABG PO2 80 mmHg (83-108); ABG TCO2 24 mmol/L (19-24); Allen Test Performed? Yes
[2023-10-10 06:40] LABS: Glucose,Whole Blood 225 mg/dL (70-110)
--- NOTE | 2023-10-10 06:44 | P.PCN ---
Date of Procedure: 10/10/23 Preoperative Diagnosis: Pneumonia, sepsis Postoperative Diagnosis: Pneumonia, sepsis Procedure(s) Performed: Insertion of a left wrist radial arterial line Indications for Procedure: Continuous blood pressure monitoring and frequent blood draws Description of Procedure: Informed consent was obtained, and a procedural timeout was performed . The patient was placed in supine position. The left radial region was prepared in a sterile fashion, and a sterile drape was applied. The left radial artery was palpated, easily cannulated, and a guidewire was placed. A Cook catheter was inserted over the guidewire, and the guidewire was removed. There was good arterial blood flow, good arterial waveform, and no complications. The line was secured with using a 3-0 silk suture.
--- NOTE | 2023-10-10 07:04 | XR ---
EXAM: XR Chest, 1 View CLINICAL HISTORY: ITS.REASON XR Reason: Tube placement TECHNIQUE: Frontal view of the chest. COMPARISON: October 10, 2023 FINDINGS: Lungs: Severe bilateral pulmonary infiltration which has worsened. Pleural space: Unremarkable. No pneumothorax or pleural fluid. Heart: Unremarkable. No cardiomegaly. Mediastinum: Unremarkable. Normal mediastinal contour. Bones/joints: No acute findings. Tubes, lines and devices: An endotracheal tube has been placed with the tip measuring approximately 3.5 cm above the jan. A gastric tube has been placed into the stomach. IMPRESSION: 1. An endotracheal tube has been placed with the tip measuring approximately 3.5 cm above the jan. 2. A gastric tube has been placed into the stomach.
[2023-10-10] MEDS ORDERED: Potassium Replacement Protocol 1 EACH MISC MISCELLANE PRN (07:06)
[2023-10-10 07:23] LABS: Target Cells Present
[2023-10-10 07:25] LABS: Polychromasia Present
[2023-10-10] MEDS: NOREPINEPHRINE 4 MG in SODIUM CHLORIDE 0.9% 250 ML IV SCH (08:15)
[2023-10-10] MEDS: CHLORHEXIDINE GLUCONATE 15 ML CUP MUCOUS MEM SCH (09:08)
[2023-10-10] MEDS: POTASSIUM CHLORIDE 10 MEQ in WATER FOR INJECTION 1 100ML.BAG IVPB SCH (09:08)
[2023-10-10] MEDS: ENOXAPARIN 40 MG/0.4 ML SYRINGE SQ SCH (09:08)
[2023-10-10] MEDS: FUROSEMIDE 10 MG/ML 10 ML VIAL IV SCH (09:09)
[2023-10-10 09:12] LABS: INR 1.7 (<1.2); Prothrombin Time 17.5 sec (10.0-12.5)
[2023-10-10] MEDS: PANTOPRAZOLE 40 MG/10 ML VIAL IVP SCH (10:16)
[2023-10-10 11:38] LABS: Glucose,Whole Blood 199 mg/dL (70-110)
--- NOTE | 2023-10-10 11:38 | P.CRDCN ---
History of Present Illness Consult date: 10/10/23 History of present illness: History of Present Illness: The patient is a 48-year-old female with a history of chronic tobacco use, prior history of alcohol intake with liver cirrhosis, ascites and chronic pancreatitis who presented with symptoms of progressive dyspnea and was diagnosed with bilateral multilobar pneumonia, this morning she got more dyspneic requiring m echanical ventilation. Cardiology consultation was requested for possible CHF. The patient has no prior documented history of CAD. Her echocardiogram in 2019 showed a preserved systolic function. She is in sinus mechanism, on low-dose of norepinephrine. She has no evidence of malignant arrhythmia. On admission she had leukocytosis, elevated plasma lactic acid. Her troponin was less then 0.012 and her NT proBNP was 2040. She was in sinus mechanism with sinus tachycardia and intermittent incomplete left bundle branch block that appears to be rate related. Her IVCD was not noted in 2019. The nursing staff have been suctioning greenish-yellowish sputum from her ET tube. Medications: As an outpatient spironolactone 50 mg daily, Protonix, prednisone, Paxil Review of Systems: Could not be obtained, the patient is intubated Physical Examination: 48-year-old female intubated and sedated,Blood pressure 94/50, Heart rate 110 Head: Normocephalic. Eyes: Sclerae nonicteric. Neck: Good carotid upstroke, no bruit, no jugular venous distention. Lungs: Scattered rhonchi Heart: Regular rate and rhythm, S1-S2, no S3, no rub. No murmur. Abdomen: Soft positive bowel sounds no organomegaly. Extremities: No edema, intact distal pulses. Labs: Chest x-ray: Diffuse infiltrate bilaterally consistent with pneumonia. Chest CT angiogram showed bilateral airspace consolidation consistent with bilateral pneumonia with abdominal ascites. On admission on October 08 hemoglobin 10 WBC 16.5, BUN 18, creatinine 0.84. Troponin less than 0.012. WBC today 26.6. BUN 15, creatinine 1.64. AST 104 ALT 41 EKG: Initial EKG sinus mechanism with nonspecific ST-T wave changes subsequently sinus tachycardia with incomplete left bundle branch block Impression: 1. Respiratory failure with multilobar pneumonia requiring mechanical ventilation 2. Possible superimposed fluid overload related to the infectious process 3. History of chronic tobacco use 4. History of alcohol use with liver cirrhosis and chronic ascites Plan: 1. I will review the results of her echocardiogram, clinically she does not appear to be significantly fluid overloaded. 2. Decrease the dose of her IV diuretics 3. Follow the renal functions 4. Treatment of her infection per pulmonary service 5. Depending on her progress further recommendations will be made, prognosis is guarded. Thank you for this consult we will follow with you. Past Medical History Past Medical History: No Reported History Additional Past Medical History / Comment(s): Pt admitted to [facility] on 08/05/19 with acute pancreatitis/htn urgency-she signed out AMA to go home and care for her dog (couldn't find anyone to help). Other hx: IBS, bronchitis, ETOH abuse. History of Any Multi-Drug Resistant Organisms: None Reported Past Surgical History: No Surgical Hx Reported Additional Past Surgical History / Comment(s): EGD, colonoscopies. Past Anesthesia/Blood Transfusion Reactions: No Reported Reaction Past Psychological History: Anxiety, Depression Past Alcohol Use History: Daily, Heavy Past Drug Use History: None Reported - Past Family History Father Additional Family Medical History / Comment(s): Father is from [place]. Mother Family Medical History: No Reported History Additional Family Medical History / Comment(s): Mother is alive with history of asthma, pancreatitis, alchohol abuse. Patient does not have any brothers, sisters, children. Medications and Allergies Home Medications Medication Instructions Recorded Confirmed Type PARoxetine HCL [Paxil] 40 mg PO HS 05/13/18 10/08/23 History ALPRAZolam [Xanax] 1 mg PO HS 08/29/20 10/08/23 History Azithromycin [Zithromax] 500 mg PO DAILY 10/08/23 10/08/23 History Furosemide [Lasix] 20 mg PO HS 10/08/23 10/08/23 History Pantoprazole Sodium [Protonix] 80 mg PO DAILY 10/08/23 10/08/23 History Purezzz 1 tab PO HS 10/08/23 10/08/23 History Spironolactone [Aldactone] 50 mg PO DAILY 10/08/23 10/08/23 History diphenhydrAMINE HCL [Benadryl] 25 mg PO HS 10/08/23 10/08/23 History guaiFENesin [Mucinex] 600 mg PO Q12H 10/08/23 10/08/23 History predniSONE [Deltasone] 40 mg PO DAILY 10/08/23 10/08/23 History Allergies Allergy/AdvReac Type Severity Reaction Status Date / Time No Known Allergies Allergy Verified 10/08/23 22:08 Physical Exam Vitals: Vital Signs Temp Pulse Resp BP Pulse Ox FiO2 10/10/23 11:12 100 10/10/23 11:00 116 H 20 97 10/10/23 10:30 116 H 23 98 10/10/23 10:00 115 H 21 98 10/10/23 09:30 115 H 22 98 10/10/23 09:00 117 H 23 96 10/10/23 08:35 120 H 10/10/23 08:30 120 H 23 95 10/10/23 08:29 121 H 10/10/23 08:27 121 H 10/10/23 08:20 100 10/10/23 08:16 119 H 10/10/23 08:00 98.6 F 121 H 21 96 100 10/10/23 07:30 124 H 21 96 10/10/23 07:00 121 H 20 96 10/10/23 05:57 100 10/10/23 05:51 100 10/10/23 05:30 93 L 10/10/23 05:00 130 H 22 82 L 10/10/23 04:33 125 H 10/10/23 04:24 98 100 10/10/23 04:23 123 H 10/10/23 04:15 100 10/10/23 04:00 124 H 29 H 143/101 95 10/10/23 03:30 129 H 33 H 127/80 72 L 10/10/23 02:58 112 H 24 127/80 91 L 10/10/23 02:51 117 H 10/10/23 02:34 112 H 92 L 10/10/23 02:31 114 H 26 H 127/80 88 L 10/10/23 00:30 107 H 18 130/77 95 10/10/23 00:21 105 H 10/10/23 00:08 106 H 10/09/23 23:56 104 H 22 149/87 93 L 10/09/23 23:00 106 H 26 H 140/93 90 L 10/09/23 22:00 106 H 23 132/82 94 L 10/09/23 21:12 98.7 F 104 H 20 132/82 96 10/09/23 20:07 106 H 10/09/23 19:57 107 H 10/09/23 19:56 107 H 10/09/23 19:47 108 H 10/09/23 19:22 105 H 20 95 10/09/23 17:51 111 H 30 H 122/80 94 L 10/09/23 17:00 112 H 12 126/82 94 L 10/09/23 16:00 112 H 32 H 126/82 97 10/09/23 15:45 107 H 10/09/23 15:34 108 H 10/09/23 15:24 98.3 F 113 H 28 H 132/83 87 L 10/09/23 14:00 111 H 27 H 93 L 10/09/23 13:00 110 H 23 114/63 96 10/09/23 12:00 111 H 25 H 122/72 94 L 10/09/23 11:41 92 L 10/09/23 11:40 110 H Intake and Output 10/09/23 10/10/23 10/10/23 22:59 06:59 14:59 Intake Total 332.117 Output Total 125 515 Balance -125 -182.883 Intake: Intake, IV Titration 332.117 Amount Piperacillin-Tazobactam 3 100 .375 gm In Sodium Chloride 0.9% 100 ml @ 25 mls/hr IVPB Q8H [facility] Rx#: [id number] Potassium Chloride 10 meq 200 In Water For Injection 1 100ml.bag @ 100 mls/hr IVPB Q1H [facility] Rx#: [id number] propofoL 1,000 mg In 32.117 Empty Bag 1 bag @ 15 MCG/ KG/MIN 4.899 mls/hr IV . [id number] [facility] Rx#:[id number] Output: Urine 125 515 Other: Voiding Method Indwelling Catheter Indwelling Catheter Weight 54.431 kg ABP, PAP, CO, CI - Last 8 Hours Arterial Blood Pressure 87/45 Arterial Blood Pressure 85/45 Arterial Blood Pressure 94/50 Arterial Blood Pressure 92/51 Arterial Blood Pressure 92/50 Arterial Blood Pressure 100/57 Arterial Blood Pressure 109/64 Arterial Blood Pressure 115/67 Arterial Blood Pressure 108/64 Results 10/10/23 04:49 10/10/23 04:49 Cardiac Enzymes 10/10/23 Range/Units 04:49 AST 104 H (14-36) U/L Coagulation 10/10/23 Range/Units 08:44 PT 17.5 H (10.0-12.5) sec CBC 10/10/23 Range/Units 04:49 WBC 26.6 H (3.8-10.6) k/uL RBC 3.28 L (3.80-5.40) m/uL Hgb 10.3 L (11.4-16.0) gm/dL Hct 34.8 (34.0-46.0) % Plt Count 190 (150-450) k/uL Comprehensive Metabolic Panel 10/10/23 Range/Units 04:49 Sodium 139 (137-145) mmol/L Potassium 3.6 (3.5-5.1) mmol/L Chloride 108 H (98-107) mmol/L Carbon Dioxide 20 L (22-30) mmol/L BUN 15 (7-17) mg/dL Creatinine 0.64 (0.52-1.04) mg/dL Glucose 206 H (74-99) mg/dL Calcium 8.4 (8.4-10.2) mg/dL AST 104 H (14-36) U/L ALT 41 H (4-34) U/L Alkaline Phosphatase 186 H (38-126) U/L Total Protein 7.7 (6.3-8.2) g/dL Albumin 2.9 L (3.5-5.0) g/dL Current Medications Generic Name Dose Route Start Last Admin Trade Name Freq PRN Reason Stop Dose Admin Albuterol/Ipratropium 3 ml 10/09/23 12:00 10/10/23 08:15 Ipratropium-Albuterol 3 Ml Neb INHALATION 3 ml RT-Q4H [facility]IESER Administration Budesonide 1 mg 10/09/23 20:00 10/10/23 08:15 Budesonide 1 Mg/2 Ml Nebu INHALATION 1 mg RT-BID ELIESER Administration Chlorhexidine Gluconate 15 ml 10/10/23 09:00 10/10/23 09:08 Chlorhexidine Gluconate 15 Ml Cup MUCOUS MEM 15 ml BID ELIESER Administration Dextrose/Water 25 ml 10/09/23 10:20 Dextrose 50% Syringe 50 Ml IVP PER PROTOCOL PRN Hypoglycemia Protocol Dextrose/Water 50 ml 10/09/23 10:20 Dextrose 50% Syringe 50 Ml IVP PER PROTOCOL PRN Hypoglycemia Protocol Enoxaparin Sodium 40 mg 10/10/23 09:00 10/10/23 09:08 Enoxaparin 40 Mg/0.4 Ml Syringe SQ 40 mg DAILY ELIESER Administration Folic Acid 1 mg 10/09/23 09:00 10/10/23 09:09 Folic Acid 1 Mg Tab PO 1 mg DAILY ELIESER Administration Formoterol Fumarate 20 mcg 10/09/23 20:00 10/10/23 08:25 Formoterol Fumarate 20 Mcg/2 Ml Nebu INHALATION 20 mcg RT-BID ELIESER Administration Furosemide 60 mg 10/10/23 09:00 10/10/23 09:09 Furosemide 10 Mg/Ml 10 Ml Vial IV 60 mg Q12HR [facility] Administration Sodium Chloride 1,000 mls @ 10 mls/hr 10/09/23 10:30 10/10/23 08:15 Saline 0.9% IV Not Given .Q24H ELIES[facility] Propofol 1,000 mg/ IV Solution 100 mls @ 4.899 mls/hr 10/10/23 06:00 10/10/23 10:10 IV 60 mcg/kg/min .[id number] [facility]IES[facility] 19.595 mls/hr Titration Protocol 15 MCG/KG/MIN Norepinephrine Bitartrate 4 mg 254 mls @ 6.221 mls/hr 10/10/23 06:15 10/10/23 11:04 / Sodium Chloride IV 0.02 mcg/kg/min .Q24H [facility] 4.148 mls/hr Administration Protocol 0.03 MCG/KG/MIN Piperacillin Sod/Tazobactam 100 mls @ 25 mls/hr 10/10/23 16:00 Sod 3.375 gm/ Sodium Chloride IVPB Q8HR [facility] Protocol Insulin Aspart 0 unit 10/09/23 12:30 10/10/23 06:58 Insulin Aspart (Novolog) 100 Unit/Ml Vial SQ 2 unit ACHS [facility] Administration Protocol Lorazepam 2 mg 10/08/23 20:24 10/10/23 05:36 Lorazepam 2 Mg/Ml Inj IV 10/10/23 20:25 2 mg Q10M PRN Administration CIWA 16 or higher Lorazepam 1 mg 10/08/23 20:24 10/10/23 08:56 Lorazepam 2 Mg/Ml Inj IV 1 mg Q2HR PRN Administration CIWA 8 or 9 Lorazepam 1 mg 10/08/23 20:24 10/10/23 04:45 Lorazepam 2 Mg/Ml Inj IV 1 mg Q1HR PRN Administration CIWA 10 to 15 Methylprednisolone Sodium Succinate 60 mg 10/09/23 12:00 10/10/23 05:40 Methylprednisolone Sod Succi 125 Mg/2 Ml Vial IV 60 mg Q6HR [facility]IESER Administration Miscellaneous Information 1 each 10/08/23 23:59 Pneumonia Protocol Utilized 1 Each Misc PO ONCE PRN Per Protocol Miscellaneous Information 1 each 10/10/23 07:06 Potassium Replacement Protocol 1 Each Misc MISCELLANE DAILY PRN Per Protocol Protocol Morphine Sulfate 4 mg 10/08/23 23:59 10/09/23 02:50 Morphine Sulfate 4 Mg/Ml Syringe IV 4 mg Q4HR PRN Administration Severe Pain (Scale 7 to 10) Multivitamins 1 each 10/09/23 09:00 10/10/23 09:09 Multivitamins, Thera 1 Each Tab PO 1 each DAILY [facility] Administration Nicotine 1 patch 10/09/23 01:35 10/10/23 09:08 Nicotine 21mg/24hr Patch TRANSDERM 1 patch DAILY [facility] Administration Ondansetron HCl 4 mg 10/08/23 23:59 10/09/23 18:29 Ondansetron 4 Mg/2 Ml Vial IVP 4 mg Q8HR PRN Administration Nausea And Vomiting Pantoprazole Sodium 80 mg 10/10/23 09:15 10/10/23 10:16 Pantoprazole 40 Mg/10 Ml Vial IVP 80 mg DAILY [facility] Administration Paroxetine HCl 40 mg 10/09/23 21:00 10/09/23 20:30 Paroxetine 20 Mg Tab PO 40 mg HS [facility] Administration Thiamine HCl 100 mg 10/09/23 09:00 10/10/23 09:09 Thiamine 100 Mg Tab PO 100 mg DAILY [facility] Administration Intake and Output 10/09/23 10/10/23 10/10/23 22:59 06:59 14:59 Intake Total 332.117 Output Total 125 515 Balance -125 -182.883 Intake: Intake, IV Titration 332.117 Amount Piperacillin-Tazobactam 3 100 .375 gm In Sodium Chloride 0.9% 100 ml @ 25 mls/hr IVPB Q8H [facility] Rx#: [id number] Potassium Chloride 10 meq 200 In Water For Injection 1 100ml.bag @ 100 mls/hr IVPB Q1H [facility] Rx#: [id number] propofoL 1,000 mg In 32.117 Empty Bag 1 bag @ 15 MCG/ KG/MIN 4.899 mls/hr IV . [id number] [facility] Rx#:[id number] Output: Urine 125 515 Other: Voiding Method Indwelling Catheter Indwelling Catheter Weight 54.431 kg Patient Weight 10/11/23 06:59 Weight 54.431 kg 10/10/23 04:49 10/10/23 04:49
--- NOTE | 2023-10-10 12:14 | CA ---
Transthoracic Echo Report Name: Nicole Magallanes Age: 48 Gender: F : 1975 Exam Date: 10/10/2023 07:56 Exam Location: [facility] Ht (in): 62 Wt (lb): 120 Ordering Physician: Radha Guerrier MD Attending/Referring Phys: Brine Supervisor Camryn Cooley RDCS Procedure CPT: Indications: chf Cardiac Hx: Technical Quality: Fair Contrast 1: Total Dose (mL): Contrast 2: Total Dose (mL): MEASUREMENTS (Male / Female) Normal Values 2D ECHO LV Diastolic Diameter PLAX 4.3 cm 4.2 - 5.9 / 3.9 - 5.3 cm LV Systolic Diameter PLAX 3.5 cm IVS Diastolic Thickness 0.7 cm 0.6 - 1.0 / 0.6 - 0.9 cm LVPW Diastolic Thickness 0.9 cm 0.6 - 1.0 / 0.6 - 0.9 cm LV Relative Wall Thickness 0.4 RV Internal Dim ED PLAX 3.5 cm LA Systolic Diameter LX 3.5 cm 3.0 - 4.0 / 2.7 - 3.8 cm LV Diastolic Volume MOD 4C 86.8 cm??? LV Systolic Volume MOD 4C 59.3 cm??? LV Ejection Fraction MOD 4C 31.7 % LV Cardiac Index MOD 4C 2151.0 cm???/min???m??? LV Diastolic Length 4C 8.5 cm LV Systolic Length 4C 7.3 cm LV Diastolic Volume MOD 2C 125.3 cm??? LV Systolic Volume MOD 2C 77.3 cm??? LV Ejection Fraction MOD 2C 38.3 % LV Cardiac Index MOD 2C 3754.8 cm???/min???m??? LV Diastolic Length 2C 8.4 cm LV Systolic Length 2C 7.5 cm LA Volume 42.9 cm??? 18 - 58 / 22 - 52 cm??? LA Volume Index 27.8 cm???/m??? 16 - 28 cm???/m??? M-MODE Aortic Root Diameter MM 2.5 cm MV E Point Septal Separation 2.4 cm AV Cusp Separation MM 1.6 cm DOPPLER MV Area PHT 6.1 cm??? Mitral E Point Velocity 120.3 cm/s Mitral A Point Velocity 48.6 cm/s Mitral E to A Ratio 2.5 MV Deceleration Time 124.7 ms MV E' Velocity 4.7 cm/s Mitral E to MV E' Ratio 25.4 FINDINGS Left Ventricle Left ventricular ejection fraction is estimated at 30-35 %. Left ventricular cavity size normal. Left ventricular wall thickness normal. Right Ventricle Mild right ventricular dilatation. Unable to estimate the right ventricular systolic pressure. Right Atrium Normal right atrial size. Left Atrium Normal left atrial size. Mitral Valve Structurally normal mitral valve. Trace mitral regurgitation. Aortic Valve Trileaflet aortic valve. No aortic valve stenosis or regurgitation. Tricuspid Valve Structurally normal tricuspid valve. No tricuspid stenosis, regurgitation or prolapse. Pulmonic Valve Pulmonic valve not well visualized. Pericardium Normal pericardium. Pleural effusion. Aorta Normal size aortic root and proximal ascending aorta. CONCLUSIONS Dilated LV with severe LV systolic dysfunction and ejection fraction of 30% to 35% Previewed by: Dr. Mazin Chase MD (Electronically Signed) Final Date: 10 October 2023 12:13
--- NOTE | 2023-10-10 12:59 | P.PN ---
Subjective Progress Note Date: 10/10/23 Principal diagnosis: Acute hypoxic respiratory failure secondary to pneumonia, sepsis, and acute pulmonary edema/systolic congestive heart failure This is a pleasant 48-year-old female patient with a known history of alcoholism with subsequent cirrhosis and chronic pancreatitis. Quit drinking approximately 5 years ago. She does have chronic and ongoing tobacco dependence, a nxiety/depression, gastroesophageal reflux disease. She has a 2 week history of initially a dry nonproductive cough that had progressed into a loose congested cough with shortness of breath. She presented here to the emergency room yesterday. DT scan of the abdomen and pelvis revealed patchy bilateral airspace consolidation consistent with multifocal lobar pneumonia. Hepatic steatosis. Abdominal ascites. Wall thickening of the small bowel, correlate for mild enteritis versus spontaneous bacterial peritonitis. CT angiogram ruled out pulmonary embolism. There is again noted patchy bilateral airspace consolidation consistent with multilobar pneumonia. Chest x-ray shows similar multifocal airspace opacities. Count 16.5. Hemoglobin 10.0. Platelets 188. INR 1.7. D-dimer 2.80. Sodium 132. Potassium 3.7. Bicarb 24. BUN 18. Creatinine 0.84. Glucose 270. Initial lactic acid 7.0. Currently 2.2. AST 113. ALT 68. Alk phos 208. ProBNP 2040. Lipase 49. Serum alcohol less than 10. Viral screen negative. She is seen today in consultation in the emergency department. She is currently resting on a stretcher. She is awake and alert. She is requiring 10 L high flow nasal cannula to maintain O2 saturations in the 90s. She drops into the 70s on room air. She was initiated on ceftriaxone and azithromycin azithromycin. NicoDerm patch in place. She received 3 L of fluid resuscitation. Normal saline at 100 ML's per hour. Patient with very today on 10/10/2023, I saw this patient yesterday on consultation, and recommended transferring the patient to the ICU after she was seen in the ER. Apparently the patient was transferred to the ICU, and early this morning her pulmonary status continued to deteriorate, patient developed worsening pulmonary edema with underlying pneumonia, patient did receive significant amount of fluids for her sepsis presentation, and she developed pulmonary edema in addition to her underlying pneumonia. She is now on assist- control rate of 20 tidal volume 350 FiO2 100% and PEEP of 10. ABG this morning showed a pO2 of 80 pCO2 43 pH of 7.34. Patient had an echocardiogram showed severe LV dysfunction with ejection fraction of 30%., There was no evidence of valvular heart disease. Considering the findings, Lasix was given at 60 mg IV push every 12 hours, patient remains empirically on Zosyn for pneumonia and for possible abdominal sepsis. She is yet to have paracentesis to rule out acute spontaneous peritonitis in the last 24 hours, patient developed worsening pulmonary edema, and worsening abdominal distention with worsening ascites. WBC count today is 26.6 hemoglobin is 10.3. Basic metabolic profile is relatively n ormal, renal profile is normal. Calcitonin level is 0.61. BNP yesterday was 2039, influenza and Legionella as well as RSV and COVID-19 screening came back all negative Objective - Vital Signs Vital signs: Vital Signs Temp 98.6 F 10/10/23 08:00 Pulse 118 H 10/10/23 11:48 Resp 20 10/10/23 11:00 BP 143/101 10/10/23 04:00 Pulse Ox 97 10/10/23 11:00 FiO2 100 10/10/23 11:12 Intake & Output 10/09/23 10/10/23 10/10/23 18:59 06:59 18:59 Intake Total 375.140 Output Total 125 515 Balance -125 -139.860 Weight 54.431 kg Intake: Intake, IV Titration 375.140 Amount Norepinephrine 4 mg In 3.18 Sodium Chloride 0.9% 250 ml @ 0.03 MCG/KG/MIN 6. 221 mls/hr IV .Q24H [facility] Rx#:[id number] Piperacillin-Tazobactam 3 100 .375 gm In Sodium Chloride 0.9% 100 ml @ 25 mls/hr IVPB Q8H [facility] Rx#: [id number] Potassium Chloride 10 meq 200 In Water For Injection 1 100ml.bag @ 100 mls/hr IVPB Q1H [facility] Rx#: [id number] propofoL 1,000 mg In 71.960 Empty Bag 1 bag @ 15 MCG/ KG/MIN 4.899 mls/hr IV . [id number] [facility] Rx#:[id number] Output: Urine 125 515 Other: Voiding Method Indwelling Catheter Indwelling Catheter ABP, PAP, CO, CI - Last Documented Arterial Blood Pressure 87/45 - Exam GENERAL EXAM: Reveals a 48-year-old female intubated mechanically ventilated sedated, on propofol at 25 mcg/kg/min HEAD: Normocephalic. EYES: Normal reaction of pupils, equal size. NOSE: Clear with pink turbinates. THROAT: No erythema or exudates. Endotracheal tube and orogastric tubes are intact. NECK: No masses, no JVD. CHEST: No chest wall deformity. Symmetrical chest expansion LUNGS: Crackles rhonchi bilaterally CVS: S1 and S2 normal with no audible murmur, regular rhythm. ABDOMEN: Abdominal distention, normal bowel sounds, no guarding or rigidity. SKIN: No rashes CENTRAL NERVOUS SYSTEM: Not assessed, patient is sedated, on propofol.. Psychiatric: Could not assess patient is sedated EXTREMITIES: Clubbing edema or cyanosis - Labs CBC & Chem 7: 10/10/23 04:49 10/10/23 04:49 Labs: Abnormal Lab Results - Last 24 Hours (Table) 10/09/23 10/09/23 10/09/23 Range/Units 09:21 12:30 15:26 WBC (3.8-10.6) k/uL RBC (3.80-5.40) m/uL Hgb (11.4-16.0) gm/dL MCV (80.0-100.0) fL MCHC (31.0-37.0) g/dL RDW (11.5-15.5) % Neutrophils # (1.3-7.7) k/uL Lymphocytes # (1.0-4.8) k/uL Macrocytosis PT (10.0-12.5) sec INR (<1.2) ABG pH (7.35-7.45) ABG pO2 (83-108) mmHg ABG O2 Saturation (94-97) % Chloride (98-107) mmol/L Carbon Dioxide (22-30) mmol/L Glucose (74-99) mg/dL POC Glucose (mg/dL) (70-110) mg/dL Plasma Lactic Acid Phi 2.2 H* 2.9 H* (0.7-2.0) mmol/L Total Bilirubin (0.2-1.3) mg/dL AST (14-36) U/L ALT (4-34) U/L Alkaline Phosphatase (38-126) U/L Albumin (3.5-5.0) g/dL Procalcitonin 0.61 H (0.02-0.09) ng/mL 10/09/23 10/09/23 10/09/23 Range/Units 17:34 18:49 20:19 WBC (3.8-10.6) k/uL RBC (3.80-5.40) m/uL Hgb (11.4-16.0) gm/dL MCV (80.0-100.0) fL MCHC (31.0-37.0) g/dL RDW (11.5-15.5) % Neutrophils # (1.3-7.7) k/uL Lymphocytes # (1.0-4.8) k/uL Macrocytosis PT (10.0-12.5) sec INR (<1.2) ABG pH (7.35-7.45) ABG pO2 (83-108) mmHg ABG O2 Saturation (94-97) % Chloride (98-107) mmol/L Carbon Dioxide (22-30) mmol/L Glucose (74-99) mg/dL POC Glucose (mg/dL) 206 H 212 H (70-110) mg/dL Plasma Lactic Acid Phi 3.5 H* (0.7-2.0) mmol/L Total Bilirubin (0.2-1.3) mg/dL AST (14-36) U/L ALT (4-34) U/L Alkaline Phosphatase (38-126) U/L Albumin (3.5-5.0) g/dL Procalcitonin (0.02-0.09) ng/mL 10/09/23 10/10/23 10/10/23 Range/Units 21:44 00:30 03:03 WBC (3.8-10.6) k/uL RBC (3.80-5.40) m/uL Hgb (11.4-16.0) gm/dL MCV (80.0-100.0) fL MCHC (31.0-37.0) g/dL RDW (11.5-15.5) % Neutrophils # (1.3-7.7) k/uL Lymphocytes # (1.0-4.8) k/uL Macrocytosis PT (10.0-12.5) sec INR (<1.2) ABG pH (7.35-7.45) ABG pO2 (83-108) mmHg ABG O2 Saturation (94-97) % Chloride (98-107) mmol/L Carbon Dioxide (22-30) mmol/L Glucose (74-99) mg/dL POC Glucose (mg/dL) 209 H (70-110) mg/dL Plasma Lactic Acid Phi 3.3 H* 3.5 H* (0.7-2.0) mmol/L Total Bilirubin (0.2-1.3) mg/dL AST (14-36) U/L ALT (4-34) U/L Alkaline Phosphatase (38-126) U/L Albumin (3.5-5.0) g/dL Procalcitonin (0.02-0.09) ng/mL 10/10/23 10/10/23 10/10/23 Range/Units 03:41 04:10 04:49 WBC 26.6 H (3.8-10.6) k/uL RBC 3.28 L (3.80-5.40) m/uL Hgb 10.3 L (11.4-16.0) gm/dL MCV 106.2 H (80.0-100.0) fL MCHC 29.6 L (31.0-37.0) g/dL RDW 21.6 H (11.5-15.5) % Neutrophils # 25.2 H (1.3-7.7) k/uL Lymphocytes # 0.6 L (1.0-4.8) k/uL Macrocytosis Marked A PT (10.0-12.5) sec INR (<1.2) ABG pH 7.34 L (7.35-7.45) ABG pO2 49 L* (83-108) mmHg ABG O2 Saturation 79.2 L (94-97) % Chloride (98-107) mmol/L Carbon Dioxide (22-30) mmol/L Glucose (74-99) mg/dL POC Glucose (mg/dL) 203 H (70-110) mg/dL Plasma Lactic Acid Phi (0.7-2.0) mmol/L Total Bilirubin (0.2-1.3) mg/dL AST (14-36) U/L ALT (4-34) U/L Alkaline Phosphatase (38-126) U/L Albumin (3.5-5.0) g/dL Procalcitonin (0.02-0.09) ng/mL 10/10/23 10/10/23 10/10/23 Range/Units 04:49 04:49 06:35 WBC (3.8-10.6) k/uL RBC (3.80-5.40) m/uL Hgb (11.4-16.0) gm/dL MCV (80.0-100.0) fL MCHC (31.0-37.0) g/dL RDW (11.5-15.5) % Neutrophils # (1.3-7.7) k/uL Lymphocytes # (1.0-4.8) k/uL Macrocytosis PT (10.0-12.5) sec INR (<1.2) ABG pH 7.34 L (7.35-7.45) ABG pO2 80 L (83-108) mmHg ABG O2 Saturation (94-97) % Chloride 108 H (98-107) mmol/L Carbon Dioxide 20 L (22-30) mmol/L Glucose 206 H (74-99) mg/dL POC Glucose (mg/dL) (70-110) mg/dL Plasma Lactic Acid Phi 5.4 H* (0.7-2.0) mmol/L Total Bilirubin 4.5 H (0.2-1.3) mg/dL AST 104 H (14-36) U/L ALT 41 H (4-34) U/L Alkaline Phosphatase 186 H (38-126) U/L Albumin 2.9 L (3.5-5.0) g/dL Procalcitonin (0.02-0.09) ng/mL 10/10/23 10/10/23 10/10/23 Range/Units 06:38 07:45 08:44 WBC (3.8-10.6) k/uL RBC (3.80-5.40) m/uL Hgb (11.4-16.0) gm/dL MCV (80.0-100.0) fL MCHC (31.0-37.0) g/dL RDW (11.5-15.5) % Neutrophils # (1.3-7.7) k/uL Lymphocytes # (1.0-4.8) k/uL Macrocytosis PT 17.5 H (10.0-12.5) sec INR 1.7 H (<1.2) ABG pH (7.35-7.45) ABG pO2 (83-108) mmHg ABG O2 Saturation (94-97) % Chloride (98-107) mmol/L Carbon Dioxide (22-30) mmol/L Glucose (74-99) mg/dL POC Glucose (mg/dL) 225 H (70-110) mg/dL Plasma Lactic Acid Phi 4.4 H* (0.7-2.0) mmol/L Total Bilirubin (0.2-1.3) mg/dL AST (14-36) U/L ALT (4-34) U/L Alkaline Phosphatase (38-126) U/L Albumin (3.5-5.0) g/dL Procalcitonin (0.02-0.09) ng/mL 10/10/23 Range/Units 11:35 WBC (3.8-10.6) k/uL RBC (3.80-5.40) m/uL Hgb (11.4-16.0) gm/dL MCV (80.0-100.0) fL MCHC (31.0-37.0) g/dL RDW (11.5-15.5) % Neutrophils # (1.3-7.7) k/uL Lymphocytes # (1.0-4.8) k/uL Macrocytosis PT (10.0-12.5) sec INR (<1.2) ABG pH (7.35-7.45) ABG pO2 (83-108) mmHg ABG O2 Saturation (94-97) % Chloride (98-107) mmol/L Carbon Dioxide (22-30) mmol/L Glucose (74-99) mg/dL POC Glucose (mg/dL) 199 H (70-110) mg/dL Plasma Lactic Acid Phi (0.7-2.0) mmol/L Total Bilirubin (0.2-1.3) mg/dL AST (14-36) U/L ALT (4-34) U/L Alkaline Phosphatase (38-126) U/L Albumin (3.5-5.0) g/dL Procalcitonin (0.02-0.09) ng/mL Assessment and Plan Assessment: Impression: Acute hypoxic respiratory failure secondary to bilateral multilobar pneumonia and superimposed congestive heart failure/systolic in nature. Requiring intubation and mechanical ventilation on 10/10/19 Acute pulmonary edema, cardiogenic in nature, although the possibility of noncardiogenic pulmonary edema is not entirely ruled out but felt to be less likely considering the patient's ejection fraction is only 20% and she received significant amount of fluids upon her initial presentation to the ER Ascites, possible spontaneous bacterial peritonitis History of liver cirrhosis related to alcohol abuse, quit drinking over 5 years ago. History of chronic pancreatitis History of anxiety/depression Tobacco dependence syndrome Recommendation: Continue ventilatory support Continue antibiotics/Zosyn Continue bronchodilators Continue GI and DVT prophylaxis Arrange for paracentesis by interventional radiology Continue diuretics/Lasix Continue to monitor strictly I's and O's Continue to monitor electrolytes Check cultures including blood cultures, sputum cultures and peritoneal cultures Cut down on IV fluids Nutrition support/enteral feeding Patient is critically ill, Critical care time is over 30. Time with Patient: Greater than 30
[2023-10-10] MEDS: PIPERACILLIN-TAZOBACTAM 3.375 GM in SODIUM CHLORIDE 0.9% 100 ML IVPB SCH (15:16)
[2023-10-10] MEDS: CISATRACURIUM 2 MG/ML 5 ML VIAL IV ONE (15:30)
[2023-10-10] MEDS: DOBUTamine DRIP 500 MG in DEXTROSE/WATER 1 250ML.BAG IV SCH (15:46)
[2023-10-10 15:55] LABS: ABG Base Excess 1.2 mmol/L; ABG HCO3 26 mmol/L (21-25); ABG Oxygen Saturation 97.1 % (94-97); ABG PCO2 42 mmHg (35-45); ABG PO2 92 mmHg (83-108); ABG TCO2 27 mmol/L (19-24); Allen Test Performed? Yes
[2023-10-10] MEDS: POTASSIUM BICARBONATE/CIT AC 20 MEQ TABLET.EFF NG-TUBE SCH ×2 (16:12→21:49)
--- NOTE | 2023-10-10 16:20 | XR ---
EXAMINATION TYPE: XR chest 1V portable DATE OF EXAM: 10/10/2023 4:09 PM CLINICAL INDICATION:Female, 48 years old with history of FREDERIC; COMPARISON: Chest radiographs from 10/07/2023 TECHNIQUE: XR chest 1V portable Frontal view of the chest. FINDINGS: Lungs/Pleura: Improved aeration of lungs on today's exam with persistent airspace opacities scattered throughout the lungs. No evidence of pneumothorax or large pleural effusion. Pulmonary vascularity: Unremarkable. Heart/mediastinum: Cardiomediastinal silhouette is unremarkable. Musculoskeletal: No acute osseous pathology. Other findings: None Lines/Tubes: Endotracheal tube with distal tip 4.9 cm above the jan. Nasogastric tube terminating below the diaphragm and over the gastric lumen. IMPRESSION: 1. Endotracheal tube 4.9 cm above the jan consider advancement of 2.5 cm proximal placement. 2. Nasogastric tube in appropriate position. 3. Improved aeration of the lungs.
[2023-10-10 18:25] LABS: Glucose,Whole Blood 265 mg/dL (70-110)
[2023-10-10] MEDS: FUROSEMIDE 10 MG/ML 4 ML VIAL IV SCH (20:33)
[2023-10-10 20:46] LABS: Glucose,Whole Blood 242 mg/dL (70-110)
--- NOTE | 2023-10-10 22:18 | P.PN ---
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 Patient states that she has been having shortness of breath for the past week and a half and did get worse in the last few days. Patient tried using her breathing treatments at home but did not get improvement. Patient was recently given antibiotics and prednisone by her physician. She has been increasingly weak and not feeling well. Patient presented to ER for evaluation. He was also complaining of cough without any sputum production. Also complaining of chest tightness and anxiety. Denies any leg swelling. No nausea or vomiting. Patient is also having increased abdominal girth. No prior history of paracentesis as per patient. Denies any fever at home. On admission patient was tachycardic and tachypneic and pulse ox 80% on room air. Currently requiring 8 L of oxygen via nasal cannula. CT of the abdomen pelvis showed patchy bilateral airspace consolidation consistent with multilobar pneumonia. Hepatic steatosis, abdominal ascites. Wall thickening of small bowel correlate for mild enteritis versus spontaneous bacterial peritonitis. CTA chest showed no PE. Patchy bilateral airspace consolidation consistent with multilobar pneumonia. Chest x-ray showed similar multifocal airspace opacities. Laboratory data showed WBC 16.5 hemoglobin 10.0 MCV 102.4 and platelets 188 and neutrophils 14.4 INR 1.7, D-dimer 2.8 Sodium 132 potassium 3.7 chloride 95 bicarbonate 24 BUN 18 and creatinine 0.84 and blood sugar 270 and lactic acid 7.0 on admission, calcium 8.1, total bilirubin level is 4.6 AST 113 ALT 68 and alk phos 208 Troponin 0.012 and proBNP 2040 and albumin 3.0 Influenza A, B, RSV and COVID-19 PCR not detected. 10/10/2023 Patient was transferred to MICU. Overnight patient's respiratory status worsened due to multifocal pneumonia and also patient is receiving fluids at 100 cc/h due to sepsis. Patient was intubated and is on assist-control. Patient is currently requiring pressor support. Chest x-ray this morning showed severe bilateral pulmonary infiltration which has worsened. Was given IV Lasix. 2D echocardiogram showed dilated LV and severe LV systolic dysfunction. Eje ction fraction 30 to 35%. Laboratory showed WBC worsened to 26.6 hemoglobin 10.3 and platelets 190 Sodium 139 potassium 3.6 chloride 108 bicarb is 20 BUN 15 and creatinine 0.64 blood sugar 206 and A1c 6.8 lactic acid 5.4 this morning. Liver enzymes are elevated. Cardiology and pulmonary is on board. Patient is being continued on antibiotics changed to Zosyn. Procalcitonin level is elevated at 0.61. Current medications reviewed. Objective - Vital Signs Vital signs: Vital Signs Temp 100.5 F H 10/10/23 20:00 Pulse 122 H 10/10/23 21:00 Resp 20 10/10/23 21:00 BP 96/53 10/10/23 21:00 Pulse Ox 99 10/10/23 21:00 FiO2 70 10/10/23 20:00 Intake & Output 10/10/23 10/10/23 10/11/23 06:59 18:59 06:59 Intake Total 966.618 185.547 Output Total 125 770 65 Balance -125 196.618 120.547 Weight 54.431 kg Intake: IV 45 12 .9 pressure bag 45 12 Intake, IV Titration 921.618 173.547 Amount DOBUTamine DRIP 500 mg In 250 Dextrose/Water 1 250ml. bag @ 2.5 MCG/KG/MIN 4. 082 mls/hr IV .Q24H [facility] Rx#:[id number] Norepinephrine 4 mg In 95.672 79.082 Sodium Chloride 0.9% 250 ml @ 0.03 MCG/KG/MIN 6. 221 mls/hr IV .Q24H [facility] Rx#:[id number] Piperacillin-Tazobactam 3 100 .375 gm In Sodium Chloride 0.9% 100 ml @ 25 mls/hr IVPB Q8H [facility] Rx#: [id number] Piperacillin-Tazobactam 3 100 .375 gm In Sodium Chloride 0.9% 100 ml @ 25 mls/hr IVPB Q8HR [facility] Rx# :[id number] Potassium Chloride 10 meq 200 In Water For Injection 1 100ml.bag @ 100 mls/hr IVPB Q1H [facility] Rx#: [id number] Sodium Chloride 0.9% 1, 20 000 ml @ 10 mls/hr IV . Q24H [facility] Rx#:[id number] propofoL 1,000 mg In 155.946 94.465 Empty Bag 1 bag @ 15 MCG/ KG/MIN 4.899 mls/hr IV . [id number] [facility] Rx#:[id number] Output: Urine 125 770 65 Other: Voiding Method Indwelling Catheter Indwelling Catheter Indwelling Catheter # Bowel Movements 1 ABP, PAP, CO, CI - Last Documented Arterial Blood Pressure 104/50 - Exam PHYSICAL EXAMINATION: Patient is intubated and on mechanical ventilator. Sedated. HEENT: Normocephalic. Neck is supple. Pupils reactive. Nostrils clear. Oral cavity is moist. Neck reveals no JVD, carotid bruits, or thyromegaly. CHEST EXAMINATION: Trachea is central. Symmetrical expansion. Bibasilar crackles and diminished sounds. CARDIAC: Normal S1, S2 with no gallops. No murmurs ABDOMEN: Soft. Bowel sounds present. Abdomen is distended with ascites. Nontender. No organomegaly. No abdominal bruits. Extremities: Bilateral lower extremity trace edema. No clubbing or cyanosis Neurologically patient is sedated and intubated.. No gross focal deficits noted Skin: No rash or skin lesions. Psychiatric: Could not be assessed at this time. Musculoskeletal: No joint swelling or deformity. - Labs CBC & Chem 7: 10/10/23 04:49 10/10/23 20:58 Labs: Abnormal Lab Results - Last 24 Hours (Table) 10/09/23 10/10/23 10/10/23 Range/Units 21:44 00:30 03:03 WBC (3.8-10.6) k/uL RBC (3.80-5.40) m/uL Hgb (11.4-16.0) gm/dL MCV (80.0-100.0) fL MCHC (31.0-37.0) g/dL RDW (11.5-15.5) % Neutrophils # (1.3-7.7) k/uL Lymphocytes # (1.0-4.8) k/uL Macrocytosis PT (10.0-12.5) sec INR (<1.2) ABG pH (7.35-7.45) ABG pO2 (83-108) mmHg ABG HCO3 (21-25) mmol/L ABG Total CO2 (19-24) mmol/L ABG O2 Saturation (94-97) % Potassium (3.5-5.1) mmol/L Chloride (98-107) mmol/L Carbon Dioxide (22-30) mmol/L Glucose (74-99) mg/dL POC Glucose (mg/dL) 209 H (70-110) mg/dL Hemoglobin A1c (<=6.0) % Plasma Lactic Acid Phi 3.3 H* 3.5 H* (0.7-2.0) mmol/L Total Bilirubin (0.2-1.3) mg/dL AST (14-36) U/L ALT (4-34) U/L Alkaline Phosphatase (38-126) U/L Albumin (3.5-5.0) g/dL 10/10/23 10/10/23 10/10/23 Range/Units 03:41 04:10 04:49 WBC (3.8-10.6) k/uL RBC (3.80-5.40) m/uL Hgb (11.4-16.0) gm/dL MCV (80.0-100.0) fL MCHC (31.0-37.0) g/dL RDW (11.5-15.5) % Neutrophils # (1.3-7.7) k/uL Lymphocytes # (1.0-4.8) k/uL Macrocytosis PT (10.0-12.5) sec INR (<1.2) ABG pH 7.34 L (7.35-7.45) ABG pO2 49 L* (83-108) mmHg ABG HCO3 (21-25) mmol/L ABG Total CO2 (19-24) mmol/L ABG O2 Saturation 79.2 L (94-97) % Potassium (3.5-5.1) mmol/L Chloride (98-107) mmol/L Carbon Dioxide (22-30) mmol/L Glucose (74-99) mg/dL POC Glucose (mg/dL) 203 H (70-110) mg/dL Hemoglobin A1c 6.8 H (<=6.0) % Plasma Lactic Acid Phi (0.7-2.0) mmol/L Total Bilirubin (0.2-1.3) mg/dL AST (14-36) U/L ALT (4-34) U/L Alkaline Phosphatase (38-126) U/L Albumin (3.5-5.0) g/dL 10/10/23 10/10/23 10/10/23 Range/Units 04:49 04:49 04:49 WBC 26.6 H (3.8-10.6) k/uL RBC 3.28 L (3.80-5.40) m/uL Hgb 10.3 L (11.4-16.0) gm/dL MCV 106.2 H (80.0-100.0) fL MCHC 29.6 L (31.0-37.0) g/dL RDW 21.6 H (11.5-15.5) % Neutrophils # 25.2 H (1.3-7.7) k/uL Lymphocytes # 0.6 L (1.0-4.8) k/uL Macrocytosis Marked A PT (10.0-12.5) sec INR (<1.2) ABG pH (7.35-7.45) ABG pO2 (83-108) mmHg ABG HCO3 (21-25) mmol/L ABG Total CO2 (19-24) mmol/L ABG O2 Saturation (94-97) % Potassium (3.5-5.1) mmol/L Chloride 108 H (98-107) mmol/L Carbon Dioxide 20 L (22-30) mmol/L Glucose 206 H (74-99) mg/dL POC Glucose (mg/dL) (70-110) mg/dL Hemoglobin A1c (<=6.0) % Plasma Lactic Acid Phi 5.4 H* (0.7-2.0) mmol/L Total Bilirubin 4.5 H (0.2-1.3) mg/dL AST 104 H (14-36) U/L ALT 41 H (4-34) U/L Alkaline Phosphatase 186 H (38-126) U/L Albumin 2.9 L (3.5-5.0) g/dL 10/10/23 10/10/23 10/10/23 Range/Units 06:35 06:38 07:45 WBC (3.8-10.6) k/uL RBC (3.80-5.40) m/uL Hgb (11.4-16.0) gm/dL MCV (80.0-100.0) fL MCHC (31.0-37.0) g/dL RDW (11.5-15.5) % Neutrophils # (1.3-7.7) k/uL Lymphocytes # (1.0-4.8) k/uL Macrocytosis PT (10.0-12.5) sec INR (<1.2) ABG pH 7.34 L (7.35-7.45) ABG pO2 80 L (83-108) mmHg ABG HCO3 (21-25) mmol/L ABG Total CO2 (19-24) mmol/L ABG O2 Saturation (94-97) % Potassium (3.5-5.1) mmol/L Chloride (98-107) mmol/L Carbon Dioxide (22-30) mmol/L Glucose (74-99) mg/dL POC Glucose (mg/dL) 225 H (70-110) mg/dL Hemoglobin A1c (<=6.0) % Plasma Lactic Acid Phi 4.4 H* (0.7-2.0) mmol/L Total Bilirubin (0.2-1.3) mg/dL AST (14-36) U/L ALT (4-34) U/L Alkaline Phosphatase (38-126) U/L Albumin (3.5-5.0) g/dL 10/10/23 10/10/23 10/10/23 Range/Units 08:44 11:35 14:45 WBC (3.8-10.6) k/uL RBC (3.80-5.40) m/uL Hgb (11.4-16.0) gm/dL MCV (80.0-100.0) fL MCHC (31.0-37.0) g/dL RDW (11.5-15.5) % Neutrophils # (1.3-7.7) k/uL Lymphocytes # (1.0-4.8) k/uL Macrocytosis PT 17.5 H (10.0-12.5) sec INR 1.7 H (<1.2) ABG pH (7.35-7.45) ABG pO2 (83-108) mmHg ABG HCO3 (21-25) mmol/L ABG Total CO2 (19-24) mmol/L ABG O2 Saturation (94-97) % Potassium 3.3 L (3.5-5.1) mmol/L Chloride (98-107) mmol/L Carbon Dioxide (22-30) mmol/L Glucose (74-99) mg/dL POC Glucose (mg/dL) 199 H (70-110) mg/dL Hemoglobin A1c (<=6.0) % Plasma Lactic Acid Phi (0.7-2.0) mmol/L Total Bilirubin (0.2-1.3) mg/dL AST (14-36) U/L ALT (4-34) U/L Alkaline Phosphatase (38-126) U/L Albumin (3.5-5.0) g/dL 10/10/23 10/10/23 10/10/23 Range/Units 15:52 18:23 20:44 WBC (3.8-10.6) k/uL RBC (3.80-5.40) m/uL Hgb (11.4-16.0) gm/dL MCV (80.0-100.0) fL MCHC (31.0-37.0) g/dL RDW (11.5-15.5) % Neutrophils # (1.3-7.7) k/uL Lymphocytes # (1.0-4.8) k/uL Macrocytosis PT (10.0-12.5) sec INR (<1.2) ABG pH (7.35-7.45) ABG pO2 (83-108) mmHg ABG HCO3 26 H (21-25) mmol/L ABG Total CO2 27 H (19-24) mmol/L ABG O2 Saturation 97.1 H (94-97) % Potassium (3.5-5.1) mmol/L Chloride (98-107) mmol/L Carbon Dioxide (22-30) mmol/L Glucose (74-99) mg/dL POC Glucose (mg/dL) 265 H 242 H (70-110) mg/dL Hemoglobin A1c (<=6.0) % Plasma Lactic Acid Phi (0.7-2.0) mmol/L Total Bilirubin (0.2-1.3) mg/dL AST (14-36) U/L ALT (4-34) U/L Alkaline Phosphatase (38-126) U/L Albumin (3.5-5.0) g/dL Microbiology - Last 24 Hours (Table) 10/09/23 00:15 Blood Culture - Preliminary Blood Assessment and Plan Assessment: Acute hypoxic respiratory failure secondary to multifocal pneumonia and pulmonary edema. Patient is 8 L high flow oxygen--> intubated on mechanical ventilator. Pulmonary edema likely due to cardiogenic with low ejection fraction 30 to 35%. Multifocal pneumonia Sepsis/septic shock secondary to above. Requiring pressor support Acute HFrEF with ejection fraction 30 reviewable send COPD with acute exacerbation Lactic acidosis 7.0 on admission Alcoholic liver cirrhosis Ascites Hepatic steatosis and hyperbilirubinemia and elevated liver enzymes History of severe alcohol abuse. Quit 5 years ago History of chronic pancreatitis Anxiety/depression DVT prophylaxis with Lovenox subcu GI prophylaxis Plan: Patient is on mechanical ventilator. Continued on antibiotics in the form of Zosyn. IV hydration is on hold. Patient was started on Lasix IV. Interventional radiology consulted for paracentesis and fluid analysis including culture. Cardiology and critical care team is on board. Prognosis is guarded. Time with Patient: Greater than 30
--- NOTE | 2023-10-10 22:21 | OP ---
OPERATIVE REPORT DATE OF SERVICE : PROCEDURE PERFORMED: Placement of a right femoral triple-lumen catheter. PREOPERATIVE DIAGNOSES: Acute hypoxic respiratory failure, septic shock, hypotension, and the patient requiring pressors/inotropes. POSTOPERATIVE DIAGNOSES: Acute hypoxic respiratory failure, septic shock, hypotension, and the patient requiring pressors/inotropes. ANESTHESIA USED: 2 mL of 1% lidocaine. DESCRIPTION OF PROCEDURE: The patient was placed in a supine position, the right groin was prepared in a sterile fashion. Drapes were applied. The groin was locally anesthetized with 2 mL of lidocaine. Then, the right femoral vein was easily cannulated, a guidewire was placed. The area around the guidewire was dilated, and a triple-lumen catheter was inserted over the guidewire, and the guidewire was removed. Good blood flow noted in 3 different ports of the triple-lumen catheter, line was secured using 3.0 silk sutures, no complications. The procedure was well tolerated. MMODL / IJN: [id number] /
[2023-10-11] MEDS: FUROSEMIDE 10 MG/ML 4 ML VIAL IV STA (01:26)
[2023-10-11 04:41] LABS: Anisocytosis Moderate; Basophils % (A) 0 %; Eosinophils % (A) 0 %; HCT 30.7 % (34.0-46.0); HGB 9.6 gm/dL (11.4-16.0); Hypochromasia Marked; Lymphocytes % (A) 4 %; MCH 32.7 pg (25.0-35.0); MCHC 31.2 g/dL (31.0-37.0); MCV 104.8 fL (80.0-100.0); Macrocytosis Marked; Mean Platelet Volume 9.6; Monocytes # (A) 0.7 k/uL (0-1.0); Monocytes % (A) 3 %; Neutrophils % (A) 93 %; Platelet Count 187 k/uL (150-450); RBC 2.93 m/uL (3.80-5.40); RDW 22.1 % (11.5-15.5); WBC 24.9 k/uL (3.8-10.6)
[2023-10-11 04:54] LABS: African American GFR (CKD) 70 (>60 ml/min/1.73 sqM); Anion Gap 6 mmol/L; Blood Urea Nitrogen 25 mg/dL (7-17); Carbon Dioxide 26 mmol/L (22-30); Chloride 105 mmol/L (98-107); Glucose 264 mg/dL (74-99); Non-African American GFR(CKD) 60 (>60 ml/min/1.73 sqM); Potassium 4.2 mmol/L (3.5-5.1); Sodium 137 mmol/L (137-145)
[2023-10-11 05:50] LABS: ABG Base Excess 2.4 mmol/L; ABG HCO3 27 mmol/L (21-25); ABG PCO2 43 mmHg (35-45); ABG PH 7.41 (7.35-7.45); ABG PO2 128 mmHg (83-108); ABG TCO2 28 mmol/L (19-24)
[2023-10-11 05:51] LABS: Allen Test Performed? No
[2023-10-11 06:21] LABS: Glucose,Whole Blood 317 mg/dL (70-110)
--- NOTE | 2023-10-11 08:13 | XR ---
EXAMINATION TYPE: XR chest 1V portable DATE OF EXAM: 10/11/2023 5:15 AM CLINICAL INDICATION:Female, 48 years old with history of multifocal pneumonia; [facility] COMPARISON: Chest radiographs from TECHNIQUE: XR chest 1V portable Frontal view of the chest. FINDINGS: Lungs/Pleura: There is no evidence of pleural effusion, focal consolidation, or pneumothorax. Pulmonary vascularity: Unremarkable. Heart/mediastinum: Cardiomediastinal silhouette is unremarkable. Musculoskeletal: No acute osseous pathology. Other findings: None Lines/Tubes: Endotracheal tube with distal tip 3.1 cm above the jan. Nasogastric tube with its distal tip and side-port projecting under the diaphragm. IMPRESSION: 1. Multifocal airspace opacities are not significantly changed. 2. Support tubes in proper position..
[2023-10-11] MEDS: SODIUM CHLORIDE 0.9% 1,000 ML IV ONE (09:38)
[2023-10-11] MEDS: VASOPRESSIN 20 UNIT in SODIUM CHLORIDE 0.9% 50 ML IV SCH (10:11)
[2023-10-11 11:25] LABS: Glucose,Whole Blood 261 mg/dL (70-110)
--- NOTE | 2023-10-11 12:16 | P.PN ---
Subjective Progress Note Date: 10/11/23 Principal diagnosis: Acute hypoxic respiratory failure secondary to pneumonia, sepsis, and acute pulmonary edema/systolic congestive heart failure This is a pleasant 48-year-old female patient with a known history of alcoholism with subsequent cirrhosis and chronic pancreatitis. Quit drinking approximately 5 years ago. She does have chronic and ongoing tobacco dependence, a nxiety/depression, gastroesophageal reflux disease. She has a 2 week history of initially a dry nonproductive cough that had progressed into a loose congested cough with shortness of breath. She presented here to the emergency room yesterday. DT scan of the abdomen and pelvis revealed patchy bilateral airspace consolidation consistent with multifocal lobar pneumonia. Hepatic steatosis. Abdominal ascites. Wall thickening of the small bowel, correlate for mild enteritis versus spontaneous bacterial peritonitis. CT angiogram ruled out pulmonary embolism. There is again noted patchy bilateral airspace consolidation consistent with multilobar pneumonia. Chest x-ray shows similar multifocal airspace opacities. Count 16.5. Hemoglobin 10.0. Platelets 188. INR 1.7. D-dimer 2.80. Sodium 132. Potassium 3.7. Bicarb 24. BUN 18. Creatinine 0.84. Glucose 270. Initial lactic acid 7.0. Currently 2.2. AST 113. ALT 68. Alk phos 208. ProBNP 2040. Lipase 49. Serum alcohol less than 10. Viral screen negative. She is seen today in consultation in the emergency department. She is currently resting on a stretcher. She is awake and alert. She is requiring 10 L high flow nasal cannula to maintain O2 saturations in the 90s. She drops into the 70s on room air. She was initiated on ceftriaxone and azithromycin azithromycin. NicoDerm patch in place. She received 3 L of fluid resuscitation. Normal saline at 100 ML's per hour. Patient with very today on 10/10/2023, I saw this patient yesterday on consultation, and recommended transferring the patient to the ICU after she was seen in the ER. Apparently the patient was transferred to the ICU, and early this morning her pulmonary status continued to deteriorate, patient developed worsening pulmonary edema with underlying pneumonia, patient did receive significant amount of fluids for her sepsis presentation, and she developed pulmonary edema in addition to her underlying pneumonia. She is now on assist- control rate of 20 tidal volume 350 FiO2 100% and PEEP of 10. ABG this morning showed a pO2 of 80 pCO2 43 pH of 7.34. Patient had an echocardiogram showed severe LV dysfunction with ejection fraction of 30%., There was no evidence of valvular heart disease. Considering the findings, Lasix was given at 60 mg IV push every 12 hours, patient remains empirically on Zosyn for pneumonia and for possible abdominal sepsis. She is yet to have paracentesis to rule out acute spontaneous peritonitis in the last 24 hours, patient developed worsening pulmonary edema, and worsening abdominal distention with worsening ascites. WBC count today is 26.6 hemoglobin is 10.3. Basic metabolic profile is relatively n ormal, renal profile is normal. Calcitonin level is 0.61. BNP yesterday was 2039, influenza and Legionella as well as RSV and COVID-19 screening came back all negative Reevaluated today on 10/11/2023, patient remains in the ICU, intubated and mechanically ventilated. Patient is on assist-control rate of 20 tidal volume 350 FiO2 50% PEEP of 12, ABG showed a pO2 of 128 pCO2 43 pH of 7.41, hence I dropped the PEEP down to 10 and FiO2 down to 45%. Chest x-ray is showing improvement in her pneumonia and improvement in her pulmonary edema. Urine output remains marginal at 25 to 30 cc/h, blood pressure remains marginal in spite of being on dobutamine remain at 2.5 mcg/kg/min norepinephrine at 0.15 mcg/kg/min propofol 40 mcg/kg/min, patient is also on IV fluids at KVO which I have increased today to 75 cc/h and patient remains on Zosyn empirically for pneumonia, and for possible peritonitis. Interventional radiology is delaying and not planning to do paracentesis at this point mostly because of patient's blood pressure is marginal. I will recommend vasopressin on this patient, and will likely discontinue dobutamine on this patient. I have discontinued her Lasix, and started IV fluid at 0.9 normal saline 75 cc/h will initiate nutritional support/vital HP today. Patient remains critically ill, but nonetheless she is improving, updated her family/father and mother at bedside on her condition. WBC count is 24.9 hemoglobin 9.6. WBC count is improving compared to yesterday basic metabolic profile is normal renal profile showed a BUN of 25 creatinine 1.10 slightly worse compared to admission creatinine of 0.64, and that is not surprising Objective - Vital Signs Vital signs: Vital Signs Temp 98.1 F 10/11/23 08:00 Pulse 108 H 10/11/23 12:02 Resp 20 10/11/23 11:30 BP 113/76 10/11/23 11:30 Pulse Ox 96 10/11/23 11:30 FiO2 45 10/11/23 11:49 Intake & Output 10/10/23 10/11/23 10/11/23 18:59 06:59 18:59 Intake Total 966.618 858.353 177.079 Output Total 770 350 Balance 196.618 508.353 177.079 Weight 54.431 kg 73.8 kg Intake: IV 45 252 .9 pressure bag 45 72 Piperacillin-Tazobactam 3 100 .375 gm In Sodium Chloride 0.9% 100 ml @ 25 mls/hr IVPB Q8H [facility] Rx#: [id number] Sodium Chloride 0.9% 1, 80 000 ml @ 10 mls/hr IV . Q24H [facility] Rx#:[id number] Intake, IV Titration 921.618 606.353 177.079 Amount DOBUTamine DRIP 500 mg In 250 Dextrose/Water 1 250ml. bag @ 2.5 MCG/KG/MIN 4. 082 mls/hr IV .Q24H [facility] Rx#:[id number] Norepinephrine 4 mg In 95.672 392.185 136.801 Sodium Chloride 0.9% 250 ml @ 0.03 MCG/KG/MIN 6. 221 mls/hr IV .Q24H [facility] Rx#:[id number] Piperacillin-Tazobactam 3 100 .375 gm In Sodium Chloride 0.9% 100 ml @ 25 mls/hr IVPB Q8H [facility] Rx#: [id number] Piperacillin-Tazobactam 3 100 .375 gm In Sodium Chloride 0.9% 100 ml @ 25 mls/hr IVPB Q8HR [facility] Rx# :[id number] Potassium Chloride 10 meq 200 In Water For Injection 1 100ml.bag @ 100 mls/hr IVPB Q1H [facility] Rx#: [id number] Sodium Chloride 0.9% 1, 20 000 ml @ 10 mls/hr IV . Q24H [facility] Rx#:[id number] propofoL 1,000 mg In 155.946 214.168 40.278 Empty Bag 1 bag @ 15 MCG/ KG/MIN 4.899 mls/hr IV . [id number] [facility] Rx#:[id number] Output: Urine 770 350 Other: Voiding Method Indwelling Catheter Indwelling Catheter # Bowel Movements 1 ABP, PAP, CO, CI - Last Documented Arterial Blood Pressure 113/60 - Exam GENERAL EXAM: Reveals a 48-year-old female intubated mechanically ventilated sedated, on propofol, and requiring pressors and inotropes HEAD: Normocephalic. EYES: Normal reaction of pupils, equal size. NOSE: Clear with pink turbinates. THROAT: No erythema or exudates. Endotracheal tube and orogastric tubes are intact. NECK: No masses, no JVD. CHEST: No chest wall deformity. Symmetrical chest expansion LUNGS: Crackles rhonchi bilaterally CVS: S1 and S2 normal with no audible murmur, regular rhythm. ABDOMEN: Abdominal distention, negative bowel sounds, no guarding or rigidity. SKIN: No rashes CENTRAL NERVOUS SYSTEM: Not assessed, patient is sedated, on propofol.. Psychiatric: Could not assess patient is sedated EXTREMITIES: No clubbing, no edema or cyanosis - Labs CBC & Chem 7: 10/11/23 04:25 10/11/23 04:25 Labs: Abnormal Lab Results - Last 24 Hours (Table) 10/10/23 10/10/23 10/10/23 Range/Units 04:49 14:45 15:52 WBC (3.8-10.6) k/uL RBC (3.80-5.40) m/uL Hgb (11.4-16.0) gm/dL Hct (34.0-46.0) % MCV (80.0-100.0) fL RDW (11.5-15.5) % Neutrophils # (1.3-7.7) k/uL Macrocytosis ABG pO2 (83-108) mmHg ABG HCO3 26 H (21-25) mmol/L ABG Total CO2 27 H (19-24) mmol/L ABG O2 Saturation 97.1 H (94-97) % Potassium 3.3 L (3.5-5.1) mmol/L BUN (7-17) mg/dL Creatinine (0.52-1.04) mg/dL Glucose (74-99) mg/dL POC Glucose (mg/dL) (70-110) mg/dL Hemoglobin A1c 6.8 H (<=6.0) % Calcium (8.4-10.2) mg/dL 10/10/23 10/10/23 10/11/23 Range/Units 18:23 20:44 04:25 WBC (3.8-10.6) k/uL RBC (3.80-5.40) m/uL Hgb (11.4-16.0) gm/dL Hct (34.0-46.0) % MCV (80.0-100.0) fL RDW (11.5-15.5) % Neutrophils # (1.3-7.7) k/uL Macrocytosis ABG pO2 (83-108) mmHg ABG HCO3 (21-25) mmol/L ABG Total CO2 (19-24) mmol/L ABG O2 Saturation (94-97) % Potassium (3.5-5.1) mmol/L BUN 25 H (7-17) mg/dL Creatinine 1.10 H (0.52-1.04) mg/dL Glucose 264 H (74-99) mg/dL POC Glucose (mg/dL) 265 H 242 H (70-110) mg/dL Hemoglobin A1c (<=6.0) % Calcium 8.0 L (8.4-10.2) mg/dL 10/11/23 10/11/23 10/11/23 Range/Units 04:25 05:48 06:20 WBC 24.9 H (3.8-10.6) k/uL RBC 2.93 L (3.80-5.40) m/uL Hgb 9.6 L (11.4-16.0) gm/dL Hct 30.7 L (34.0-46.0) % MCV 104.8 H (80.0-100.0) fL RDW 22.1 H (11.5-15.5) % Neutrophils # 23.0 H (1.3-7.7) k/uL Macrocytosis Marked A ABG pO2 128 H (83-108) mmHg ABG HCO3 27 H (21-25) mmol/L ABG Total CO2 28 H (19-24) mmol/L ABG O2 Saturation 99.0 H (94-97) % Potassium (3.5-5.1) mmol/L BUN (7-17) mg/dL Creatinine (0.52-1.04) mg/dL Glucose (74-99) mg/dL POC Glucose (mg/dL) 317 H (70-110) mg/dL Hemoglobin A1c (<=6.0) % Calcium (8.4-10.2) mg/dL 10/11/23 Range/Units 11:23 WBC (3.8-10.6) k/uL RBC (3.80-5.40) m/uL Hgb (11.4-16.0) gm/dL Hct (34.0-46.0) % MCV (80.0-100.0) fL RDW (11.5-15.5) % Neutrophils # (1.3-7.7) k/uL Macrocytosis ABG pO2 (83-108) mmHg ABG HCO3 (21-25) mmol/L ABG Total CO2 (19-24) mmol/L ABG O2 Saturation (94-97) % Potassium (3.5-5.1) mmol/L BUN (7-17) mg/dL Creatinine (0.52-1.04) mg/dL Glucose (74-99) mg/dL POC Glucose (mg/dL) 261 H (70-110) mg/dL Hemoglobin A1c (<=6.0) % Calcium (8.4-10.2) mg/dL Microbiology - Last 24 Hours (Table) 10/09/23 00:15 Blood Culture - Preliminary Blood Assessment and Plan Assessment: Impression: Acute hypoxic respiratory failure secondary to bilateral multilobar pneumonia and superimposed congestive heart failure/systolic in nature. Requiring intubation and mechanical ventilation on 10/10/19 Acute pulmonary edema, cardiogenic in nature, although the possibility of noncardiogenic pulmonary edema is not entirely ruled out but felt to be less likely considering the patient's ejection fraction is only 20% and she received significant amount of fluids upon her initial presentation to the ER Ascites, possible spontaneous bacterial peritonitis History of liver cirrhosis related to alcohol abuse, quit drinking over 5 years ago. History of chronic pancreatitis History of anxiety/depression Tobacco dependence syndrome Recommendation: Continue ventilatory support, FiO2 down to 45% PEEP down to 10 Continue antibiotics/Zosyn Continue bronchodilators Continue GI and DVT prophylaxis Arrange for paracentesis by interventional radiology, this will be done tomorrow, interventional radiology has been notified on a daily basis about the paracentesis. Hold diuretics and give the patient more fluids today but cautiously. Continue to monitor strictly I's and O's Continue to monitor electrolytes, continue to monitor renal profile. Check cultures including blood cultures, sputum cultures and peritoneal cultures, blood cultures remain negative so far. Nutrition support/enteral feeding Patient is critically ill, updated her family at bedside on her condition. Prognosis is guarded. Will continue to follow Critical care time is over 30. Time with Patient: Greater than 30
--- NOTE | 2023-10-11 12:47 | P.PN ---
Subjective Progress Note Date: 10/11/23 PROGRESS NOTE The patient is a 48-year-old female with a history of chronic tobacco use, prior history of alcohol intake with liver cirrhosis, ascites and chronic pancreatitis who presented with symptoms of progressive dyspnea and was diagnosed with bilateral multilobar pneumonia, this morning she got more dyspneic requiring mechanical ventilation. Cardiology consultation was requested for possible CHF. The patient has no prior documented history of CAD. Her echocardiogram in 2019 showed a preserved systolic function. She is in sinus mechanism, on low-dose of norepinephrine. She has no evidence of malignant arrhythmia. On admission she had leukocytosis, elevated plasma lactic acid. Her troponin was less then 0.012 and her NT proBNP was 2040. She was in sinus mechanism with sinus tachycardia and intermittent incomplete left bundle branch block that appears to be rate related. Her IVCD was not noted in 2019. The nursing staff have been suctioning greenish-yellowish sputum from her ET tube. September 10: The patient remains intubated and sedated. She is on IV dobutamine 2.5 mcg/kg/m in in addition to norepinephrine. Her echocardiogram showed an impaired systolic function with an ejection fraction of 30 to 35%. Of note that the patient had a normal LV systolic function in 2019. She continues to be in sinus mechanism and sinus tachycardia. There is no evidence of malignant arrhythmia. Her urinary output is borderline on IV Lasix. Her chest x-ray shows improvement in her infiltrate. Medications: Lasix 40 mg IV every 12 hours, methylprednisolone, IV dobutamine, norepinep hrine, Protonix, thiamine, Pulmicort, Zosyn PHYSICAL EXAMINATION: Blood pressure 107/70 heart rate 105, afebrile LUNGS: [Clear to auscultation, anteriorly] HEART: [Regular rate and rhythm, S1, S2. No S3. No systolic murmur] ABDOMEN: [Soft, positive bowel sounds, mild ascites, no organomegaly] EXTREMETIES: [No edema] LAB: WBC 24.9, hemoglobin 9.6, sodium 137, BUN 25, creatinine 1.1. IMPRESSION: 1. Acute respiratory failure with multilobar bilateral pneumonia, requiring mechanical ventilation 2. Cardiomyopathy by echocardiogram with ejection fraction of 30 to 35%, could be acute related to the infectious process. Patient in the past had a normal systolic function and there is no evidence of acute ischemic event 3. History of cirrhosis and recurrent ascites related to a prior history of alcohol intake. Patient has not been drinking for 5 years 4. Chronic tobacco use 5. Worsening renal functions PLAN: 1. I would recommend to decrease or stop her diuresis, patient may require IV fluid 2. Close follow-up to her renal function 3. Follow-up of blood pressure and depending on that add beta-megan 4. Depending on her progress further recommendations will be made, prognosis is guarded. Objective - Vital Signs Vital signs: Vital Signs Temp 97.6 F 10/11/23 12:00 Pulse 107 H 10/11/23 12:30 Resp 20 10/11/23 12:30 BP 107/75 10/11/23 12:30 Pulse Ox 96 10/11/23 12:30 FiO2 45 10/11/23 12:00 Intake & Output 10/10/23 10/11/23 10/11/23 18:59 06:59 18:59 Intake Total 966.618 897.660 6983.321 Output Total 770 350 70 Balance 196.618 194.267 7433.321 Weight 54.431 kg 73.8 kg Intake: IV 45 252 1375 .9 pressure bag 45 72 30 Piperacillin-Tazobactam 3 100 .375 gm In Sodium Chloride 0.9% 100 ml @ 25 mls/hr IVPB Q8H [facility] Rx#: [id number] Piperacillin-Tazobactam 3 100 .375 gm In Sodium Chloride 0.9% 100 ml @ 25 mls/hr IVPB Q8HR [facility] Rx# :[id number] Sodium Chloride 0.9% 1, 80 245 000 ml @ 75 mls/hr IV . [id number] [facility] Rx#:[id number] Sodium Chloride 0.9% 1, 1000 000 ml @ 999 mls/hr IV . Q1H1M [facility] Rx#:[id number] Intake, IV Titration 921.618 606.353 192.321 Amount DOBUTamine DRIP 500 mg In 250 Dextrose/Water 1 250ml. bag @ 1.25 MCG/KG/MIN 2. 041 mls/hr IV .Q24H [facility] Rx#:[id number] Norepinephrine 4 mg In 95.672 392.185 152.043 Sodium Chloride 0.9% 250 ml @ 0.03 MCG/KG/MIN 6. 221 mls/hr IV .Q24H [facility] Rx#:[id number] Piperacillin-Tazobactam 3 100 .375 gm In Sodium Chloride 0.9% 100 ml @ 25 mls/hr IVPB Q8H [facility] Rx#: [id number] Piperacillin-Tazobactam 3 100 .375 gm In Sodium Chloride 0.9% 100 ml @ 25 mls/hr IVPB Q8HR [facility] Rx# :[id number] Potassium Chloride 10 meq 200 In Water For Injection 1 100ml.bag @ 100 mls/hr IVPB Q1H [facility] Rx#: [id number] Sodium Chloride 0.9% 1, 20 000 ml @ 75 mls/hr IV . [id number] [facility] Rx#:[id number] propofoL 1,000 mg In 155.946 214.168 40.278 Empty Bag 1 bag @ 15 MCG/ KG/MIN 4.899 mls/hr IV . [id number] [facility] Rx#:[id number] Tube Feeding 10 Other 30 Output: Urine 770 350 70 Other: Voiding Method Indwelling Catheter Indwelling Catheter # Bowel Movements 1 ABP, PAP, CO, CI - Last Documented Arterial Blood Pressure 105/65 - Labs CBC & Chem 7: 10/11/23 04:25 10/11/23 04:25 Labs: Abnormal Lab Results - Last 24 Hours (Table) 10/10/23 10/10/23 10/10/23 Range/Units 04:49 14:45 15:52 WBC (3.8-10.6) k/uL RBC (3.80-5.40) m/uL Hgb (11.4-16.0) gm/dL Hct (34.0-46.0) % MCV (80.0-100.0) fL RDW (11.5-15.5) % Neutrophils # (1.3-7.7) k/uL Macrocytosis ABG pO2 (83-108) mmHg ABG HCO3 26 H (21-25) mmol/L ABG Total CO2 27 H (19-24) mmol/L ABG O2 Saturation 97.1 H (94-97) % Potassium 3.3 L (3.5-5.1) mmol/L BUN (7-17) mg/dL Creatinine (0.52-1.04) mg/dL Glucose (74-99) mg/dL POC Glucose (mg/dL) (70-110) mg/dL Hemoglobin A1c 6.8 H (<=6.0) % Calcium (8.4-10.2) mg/dL 10/10/23 10/10/23 10/11/23 Range/Units 18:23 20:44 04:25 WBC (3.8-10.6) k/uL RBC (3.80-5.40) m/uL Hgb (11.4-16.0) gm/dL Hct (34.0-46.0) % MCV (80.0-100.0) fL RDW (11.5-15.5) % Neutrophils # (1.3-7.7) k/uL Macrocytosis ABG pO2 (83-108) mmHg ABG HCO3 (21-25) mmol/L ABG Total CO2 (19-24) mmol/L ABG O2 Saturation (94-97) % Potassium (3.5-5.1) mmol/L BUN 25 H (7-17) mg/dL Creatinine 1.10 H (0.52-1.04) mg/dL Glucose 264 H (74-99) mg/dL POC Glucose (mg/dL) 265 H 242 H (70-110) mg/dL Hemoglobin A1c (<=6.0) % Calcium 8.0 L (8.4-10.2) mg/dL 10/11/23 10/11/23 10/11/23 Range/Units 04:25 05:48 06:20 WBC 24.9 H (3.8-10.6) k/uL RBC 2.93 L (3.80-5.40) m/uL Hgb 9.6 L (11.4-16.0) gm/dL Hct 30.7 L (34.0-46.0) % MCV 104.8 H (80.0-100.0) fL RDW 22.1 H (11.5-15.5) % Neutrophils # 23.0 H (1.3-7.7) k/uL Macrocytosis Marked A ABG pO2 128 H (83-108) mmHg ABG HCO3 27 H (21-25) mmol/L ABG Total CO2 28 H (19-24) mmol/L ABG O2 Saturation 99.0 H (94-97) % Potassium (3.5-5.1) mmol/L BUN (7-17) mg/dL Creatinine (0.52-1.04) mg/dL Glucose (74-99) mg/dL POC Glucose (mg/dL) 317 H (70-110) mg/dL Hemoglobin A1c (<=6.0) % Calcium (8.4-10.2) mg/dL 10/11/23 Range/Units 11:23 WBC (3.8-10.6) k/uL RBC (3.80-5.40) m/uL Hgb (11.4-16.0) gm/dL Hct (34.0-46.0) % MCV (80.0-100.0) fL RDW (11.5-15.5) % Neutrophils # (1.3-7.7) k/uL Macrocytosis ABG pO2 (83-108) mmHg ABG HCO3 (21-25) mmol/L ABG Total CO2 (19-24) mmol/L ABG O2 Saturation (94-97) % Potassium (3.5-5.1) mmol/L BUN (7-17) mg/dL Creatinine (0.52-1.04) mg/dL Glucose (74-99) mg/dL POC Glucose (mg/dL) 261 H (70-110) mg/dL Hemoglobin A1c (<=6.0) % Calcium (8.4-10.2) mg/dL Microbiology - Last 24 Hours (Table) 10/09/23 00:15 Blood Culture - Preliminary Blood
[2023-10-11 17:23] LABS: Glucose,Whole Blood 300 mg/dL (70-110)
[2023-10-11] MEDS: INSULIN ASPART (NovoLOG) 100 UNIT/ML VIAL SQ SCH (17:53)
[2023-10-12 00:11] LABS: Glucose,Whole Blood 347 mg/dL (70-110)
[2023-10-12 04:08] LABS: ABG Base Excess 0.8 mmol/L; ABG HCO3 25 mmol/L (21-25); ABG Oxygen Saturation 97.2 % (94-97); ABG PCO2 37 mmHg (35-45); ABG PH 7.44 (7.35-7.45); ABG PO2 88 mmHg (83-108); ABG TCO2 26 mmol/L (19-24); Allen Test Performed? Yes
[2023-10-12 04:37] LABS: Glucose,Whole Blood 347 mg/dL (70-110)
[2023-10-12] MEDS: INSULIN ASPART (NovoLOG) 100 UNIT/ML VIAL SQ SCH (04:47)
[2023-10-12 06:01] LABS: Anisocytosis Moderate; Basophils % (A) 0 %; Eosinophils % (A) 0 %; HCT 29.4 % (34.0-46.0); HGB 9.1 gm/dL (11.4-16.0); Hypochromasia Marked; Lymphocytes # (A) 0.6 k/uL (1.0-4.8); Lymphocytes % (A) 2 %; MCH 32.8 pg (25.0-35.0); MCHC 31.1 g/dL (31.0-37.0); MCV 105.4 fL (80.0-100.0); Macrocytosis Marked; Monocytes # (A) 0.6 k/uL (0-1.0); Monocytes % (A) 2 %; Neutrophils # (A) 23.3 k/uL (1.3-7.7); Neutrophils % (A) 95 %; Platelet Count 144 k/uL (150-450); RBC 2.79 m/uL (3.80-5.40); RDW 22.4 % (11.5-15.5); WBC 24.6 k/uL (3.8-10.6)
[2023-10-12 06:10] LABS: African American GFR (CKD) 71 (>60 ml/min/1.73 sqM); Anion Gap 10 mmol/L; Blood Urea Nitrogen 40 mg/dL (7-17); Calcium 7.9 mg/dL (8.4-10.2); Carbon Dioxide 21 mmol/L (22-30); Chloride 108 mmol/L (98-107); Glucose 312 mg/dL (74-99); Non-African American GFR(CKD) 61 (>60 ml/min/1.73 sqM); Potassium 3.9 mmol/L (3.5-5.1); Sodium 139 mmol/L (137-145)
[2023-10-12 06:18] LABS: Glucose,Whole Blood 330 mg/dL (70-110)
--- NOTE | 2023-10-12 07:41 | P.PN ---
Subjective Progress Note Date: 10/12/23 PROGRESS NOTE The patient is a 48-year-old female with a history of chronic tobacco use, prior history of alcohol intake with liver cirrhosis, ascites and chronic pancreatitis who presented with symptoms of progressive dyspnea and was diagnosed with bilateral multilobar pneumonia, this morning she got more dyspneic requiring mechanical ventilation. Cardiology consultation was requested for possible CHF. The patient has no prior documented history of CAD. Her echocardiogram in 2019 showed a preserved systolic function. She is in sinus mechanism, on low-dose of norepinephrine. She has no evidence of malignant arrhythmia. On admission she had leukocytosis, elevated plasma lactic acid. Her troponin was less then 0.012 and her NT proBNP was 2040. She was in sinus mechanism with sinus tachycardia and intermittent incomplete left bundle branch block that appears to be rate related. Her IVCD was not noted in 2019. The nursing staff have been suctioning greenish-yellowish sputum from her ET tube. September 10: The patient remains intubated and sedated. She is on IV dobutamine 2.5 mcg/kg/m in in addition to norepinephrine. Her echocardiogram showed an impaired systolic function with an ejection fraction of 30 to 35%. Of note that the patient had a normal LV systolic function in 2019. She continues to be in sinus mechanism and sinus tachycardia. There is no evidence of malignant arrhythmia. Her urinary output is borderline on IV Lasix. Her chest x-ray shows improvement in her infiltrate. September 11: The patient remains intubated and sedated. Off dobutamine on the lower dose of norepinephrine and continues to be on vasopressin. She has been getting IV fluid at 75 cc an hour. Her urinary output is borderline. She is afebrile. She continues to be in sinus mechanism with no evidence of atrial fibrillation. She may undergo paracentesis today. Medications: methylprednisolone, norepinephrine, Protonix, thiamine, Pulmicort, Zosyn, vasopressin PHYSICAL EXAMINATION: Blood pressure 112/50 heart rate 90, afebrile LUNGS: Clear to auscultation, anteriorly HEART: Regular rate and rhythm, S1, S2. No S3. No systolic murmur ABDOMEN: Soft, positive bowel sounds, ascites, no organomegaly EXTREMETIES: No edema LAB: WBC 24.6, hemoglobin 9.1, sodium 139 7, BUN 40 , creatinine 1.09 IMPRESSION: 1. Acute respiratory failure with multilobar bilateral pneumonia, requiring m echanical ventilation 2. Cardiomyopathy by echocardiogram with ejection fraction of 30 to 35%, could be acute related to the infectious process. Patient in the past had a normal systolic function and there is no evidence of acute ischemic event 3. History of cirrhosis and recurrent ascites related to a prior history of alcohol intake. Patient has not been drinking for 5 years 4. Chronic tobacco use 5. Worsening renal functions PLAN: 1. Probable paracentesis today 2. Continue IV fluid and wean norepinephrine as tolerated 3. Follow renal functions 4. Once off vasopressor consider adding beta-megan and THADDEUS inhibitor 5. Depending on her progress further recommendations will be made Objective - Vital Signs Vital signs: Vital Signs Temp 97.9 F 10/12/23 04:00 Pulse 97 10/12/23 07:00 Resp 20 10/12/23 07:00 BP 114/75 10/12/23 05:00 Pulse Ox 99 10/12/23 07:00 FiO2 45 10/12/23 04:00 Intake & Output 10/11/23 10/12/23 10/12/23 18:59 06:59 18:59 Intake Total 2317.865 1602.494 78 Output Total 150 175 15 Balance 2167.865 1427.494 63 Weight 77.7 kg Intake: IV 1861 1066 78 .9 pressure bag 66 66 3 Piperacillin-Tazobactam 3 100 100 .375 gm In Sodium Chloride 0.9% 100 ml @ 25 mls/hr IVPB Q8HR [facility] Rx# :[id number] Sodium Chloride 0.9% 1, 695 900 75 000 ml @ 75 mls/hr IV . [id number] [facility] Rx#:[id number] Sodium Chloride 0.9% 1, 1000 000 ml @ 999 mls/hr IV . Q1H1M [facility] Rx#:[id number] Intake, IV Titration 356.865 406.494 Amount Norepinephrine 4 mg In 185.778 128.121 Sodium Chloride 0.9% 250 ml @ 0.03 MCG/KG/MIN 6. 221 mls/hr IV .Q24H [facility] Rx#:[id number] Vasopressin 20 unit In 31.748 39.78 Sodium Chloride 0.9% 50 ml @ 0.03 UNITS/MIN 4.59 mls/hr IV .Q11H7M [facility] Rx# :[id number] propofoL 1,000 mg In 139.339 238.593 Empty Bag 1 bag @ 15 MCG/ KG/MIN 4.899 mls/hr IV . [id number] [facility] Rx#:[id number] Tube Feeding 70 100 Other 30 30 Output: Urine 150 175 15 Other: Voiding Method Indwelling Catheter Indwelling Catheter ABP, PAP, CO, CI - Last Documented Arterial Blood Pressure 112/53 - Labs CBC & Chem 7: 10/12/23 05:09 10/12/23 05:09 Labs: Abnormal Lab Results - Last 24 Hours (Table) 10/11/23 10/11/23 10/12/23 Range/Units 11:23 17:21 00:09 WBC (3.8-10.6) k/uL RBC (3.80-5.40) m/uL Hgb (11.4-16.0) gm/dL Hct (34.0-46.0) % MCV (80.0-100.0) fL RDW (11.5-15.5) % Plt Count (150-450) k/uL Neutrophils # (1.3-7.7) k/uL Lymphocytes # (1.0-4.8) k/uL Macrocytosis ABG Total CO2 (19-24) mmol/L ABG O2 Saturation (94-97) % Chloride (98-107) mmol/L Carbon Dioxide (22-30) mmol/L BUN (7-17) mg/dL Creatinine (0.52-1.04) mg/dL Glucose (74-99) mg/dL POC Glucose (mg/dL) 261 H 300 H 347 H (70-110) mg/dL Calcium (8.4-10.2) mg/dL 10/12/23 10/12/23 10/12/23 Range/Units 04:05 04:35 05:09 WBC 24.6 H (3.8-10.6) k/uL RBC 2.79 L (3.80-5.40) m/uL Hgb 9.1 L (11.4-16.0) gm/dL Hct 29.4 L (34.0-46.0) % MCV 105.4 H (80.0-100.0) fL RDW 22.4 H (11.5-15.5) % Plt Count 144 L (150-450) k/uL Neutrophils # 23.3 H (1.3-7.7) k/uL Lymphocytes # 0.6 L (1.0-4.8) k/uL Macrocytosis Marked A ABG Total CO2 26 H (19-24) mmol/L ABG O2 Saturation 97.2 H (94-97) % Chloride (98-107) mmol/L Carbon Dioxide (22-30) mmol/L BUN (7-17) mg/dL Creatinine (0.52-1.04) mg/dL Glucose (74-99) mg/dL POC Glucose (mg/dL) 347 H (70-110) mg/dL Calcium (8.4-10.2) mg/dL 10/12/23 10/12/23 Range/Units 05:09 06:17 WBC (3.8-10.6) k/uL RBC (3.80-5.40) m/uL Hgb (11.4-16.0) gm/dL Hct (34.0-46.0) % MCV (80.0-100.0) fL RDW (11.5-15.5) % Plt Count (150-450) k/uL Neutrophils # (1.3-7.7) k/uL Lymphocytes # (1.0-4.8) k/uL Macrocytosis ABG Total CO2 (19-24) mmol/L ABG O2 Saturation (94-97) % Chloride 108 H (98-107) mmol/L Carbon Dioxide 21 L (22-30) mmol/L BUN 40 H (7-17) mg/dL Creatinine 1.09 H (0.52-1.04) mg/dL Glucose 312 H (74-99) mg/dL POC Glucose (mg/dL) 330 H (70-110) mg/dL Calcium 7.9 L (8.4-10.2) mg/dL Microbiology - Last 24 Hours (Table) 10/09/23 00:15 Blood Culture - Preliminary Blood
--- NOTE | 2023-10-12 08:10 | XR ---
EXAMINATION TYPE: XR chest 1V portable DATE OF EXAM: 10/12/2023 5:37 AM CLINICAL INDICATION:Female, 48 years old with history of Tube placement; [facility] COMPARISON: Chest radiographs from 10/11/2023 TECHNIQUE: XR chest 1V portable Frontal view of the chest. FINDINGS: Lungs/Pleura: Similar multifocal airspace opacities. No evidence of pneumothorax or pleural effusion. Pulmonary vascularity: Unremarkable. Heart/mediastinum: Cardiomediastinal silhouette is unremarkable. Musculoskeletal: No acute osseous pathology. Other findings: None Lines/Tubes: Endotracheal tube with distal tip 3.7 cm above the jan. Nasogastric tube with its distal tip and side-port projecting under the diaphragm. IMPRESSION: 1. Similar multifocal airspace opacities. 2. Stable support tubes.
[2023-10-12 08:43] LABS: Glucose,Whole Blood 346 mg/dL (70-110)
[2023-10-12] MEDS: FUROSEMIDE 10 MG/ML 4 ML VIAL IV STA (09:29)
--- NOTE | 2023-10-12 10:38 | US ---
EXAMINATION TYPE: US paracentesis abd w/image DATE OF EXAM: 10/12/2023 10:22 AM CLINICAL INDICATION:Female, 48 years old with history of Ascites; COMPARISON: 10/09/2023 ATTENDING: Dr. Jamil Daniel PROCEDURE: Informed consent was obtained. The risks of the procedure were extensively explained incl uding risk of damage to surrounding bowel with perforation and need for additional procedures. Proced ure was performed in the ultrasound procedure suite. Ultrasound imaging of the abdomen demonstrate as citic fluid. An appropriate access site was localized to the right lower abdomen. Timeout was taken p er protocol. The skin was prepped and draped in the usual sterile fashion and then locally anesthetiz ed with 1% lidocaine. The peritoneal cavity was then accessed via a 5-Croatian one-step needle/cathete r. Approximately 1800 cc of clear straw-colored fluid was obtained. Samples were sent to the lab for analysis. Postprocedural imaging of the abdomen demonstrate a minimal amount of abdominal fluid. Patient tolerated procedure well without immediate complication. Hemostasis at the procedural site w as obtained with a sterile bandage placed. The patient was monitored in the holding area following th e procedure and was in stable condition. IMPRESSION: Ultrasound guided paracentesis, with approximately 1800 cc of clear straw-colored fluid drained. Path ology results pending. No immediate complications were evident.
[2023-10-12] MEDS: INSULIN DETEMIR (LEVEMIR) 100 UNIT/ML SYR SQ SCH (11:00)
[2023-10-12 11:34] LABS: Glucose,Whole Blood 318 mg/dL (70-110)
[2023-10-12 16:05] LABS: Glucose,Whole Blood 180 mg/dL (70-110)
--- NOTE | 2023-10-12 16:35 | P.PN ---
Subjective Progress Note Date: 10/12/23 Principal diagnosis: Acute hypoxic respiratory failure secondary to pneumonia, sepsis, and acute pulmonary edema/systolic congestive heart failure This is a pleasant 48-year-old female patient with a known history of alcoholism with subsequent cirrhosis and chronic pancreatitis. Quit drinking approximately 5 years ago. She does have chronic and ongoing tobacco dependence, a nxiety/depression, gastroesophageal reflux disease. She has a 2 week history of initially a dry nonproductive cough that had progressed into a loose congested cough with shortness of breath. She presented here to the emergency room yesterday. DT scan of the abdomen and pelvis revealed patchy bilateral airspace consolidation consistent with multifocal lobar pneumonia. Hepatic steatosis. Abdominal ascites. Wall thickening of the small bowel, correlate for mild enteritis versus spontaneous bacterial peritonitis. CT angiogram ruled out pulmonary embolism. There is again noted patchy bilateral airspace consolidation consistent with multilobar pneumonia. Chest x-ray shows similar multifocal airspace opacities. Count 16.5. Hemoglobin 10.0. Platelets 188. INR 1.7. D-dimer 2.80. Sodium 132. Potassium 3.7. Bicarb 24. BUN 18. Creatinine 0.84. Glucose 270. Initial lactic acid 7.0. Currently 2.2. AST 113. ALT 68. Alk phos 208. ProBNP 2040. Lipase 49. Serum alcohol less than 10. Viral screen negative. She is seen today in consultation in the emergency department. She is currently resting on a stretcher. She is awake and alert. She is requiring 10 L high flow nasal cannula to maintain O2 saturations in the 90s. She drops into the 70s on room air. She was initiated on ceftriaxone and azithromycin azithromycin. NicoDerm patch in place. She received 3 L of fluid resuscitation. Normal saline at 100 ML's per hour. Patient with very today on 10/10/2023, I saw this patient yesterday on consultation, and recommended transferring the patient to the ICU after she was seen in the ER. Apparently the patient was transferred to the ICU, and early this morning her pulmonary status continued to deteriorate, patient developed worsening pulmonary edema with underlying pneumonia, patient did receive significant amount of fluids for her sepsis presentation, and she developed pulmonary edema in addition to her underlying pneumonia. She is now on assist- control rate of 20 tidal volume 350 FiO2 100% and PEEP of 10. ABG this morning showed a pO2 of 80 pCO2 43 pH of 7.34. Patient had an echocardiogram showed severe LV dysfunction with ejection fraction of 30%., There was no evidence of valvular heart disease. Considering the findings, Lasix was given at 60 mg IV push every 12 hours, patient remains empirically on Zosyn for pneumonia and for possible abdominal sepsis. She is yet to have paracentesis to rule out acute spontaneous peritonitis in the last 24 hours, patient developed worsening pulmonary edema, and worsening abdominal distention with worsening ascites. WBC count today is 26.6 hemoglobin is 10.3. Basic metabolic profile is relatively n ormal, renal profile is normal. Calcitonin level is 0.61. BNP yesterday was 2039, influenza and Legionella as well as RSV and COVID-19 screening came back all negative Reevaluated today on 10/11/2023, patient remains in the ICU, intubated and mechanically ventilated. Patient is on assist-control rate of 20 tidal volume 350 FiO2 50% PEEP of 12, ABG showed a pO2 of 128 pCO2 43 pH of 7.41, hence I dropped the PEEP down to 10 and FiO2 down to 45%. Chest x-ray is showing improvement in her pneumonia and improvement in her pulmonary edema. Urine output remains marginal at 25 to 30 cc/h, blood pressure remains marginal in spite of being on dobutamine remain at 2.5 mcg/kg/min norepinephrine at 0.15 mcg/kg/min propofol 40 mcg/kg/min, patient is also on IV fluids at KVO which I have increased today to 75 cc/h and patient remains on Zosyn empirically for pneumonia, and for possible peritonitis. Interventional radiology is delaying and not planning to do paracentesis at this point mostly because of patient's blood pressure is marginal. I will recommend vasopressin on this patient, and will likely discontinue dobutamine on this patient. I have discontinued her Lasix, and started IV fluid at 0.9 normal saline 75 cc/h will initiate nutritional support/vital HP today. Patient remains critically ill, but nonetheless she is improving, updated her family/father and mother at bedside on her condition. WBC count is 24.9 hemoglobin 9.6. WBC count is improving compared to yesterday basic metabolic profile is normal renal profile showed a BUN of 25 creatinine 1.10 slightly worse compared to admission creatinine of 0.64, and that is not surprising Patient was reevaluated today on 10/12/2023, remains in the ICU, intubated and mechanically ventilated, patient is on assist-control rate of 20 tidal volume 350 FiO2 45% PEEP of 10 ABG showed a pO2 of 88 pCO2 37 pH of 7.44. Urine output is marginal roughly 10 to 15 cc/h, hence I recommended a dose of Lasix to be given 40 mg IV push, will hold on fluid boluses since her chest x-ray is showing worsening interstitial edema, slightly worse compared to the chest x-ray she had yesterday. However the patient is now on lesser PEEP and she is on lesser FiO2. Scheduled to have paracentesis today. Patient is on vasopressin at 0.03, she i s also on norepinephrine at 0.03 mcg/kg/min IV fluid at 75 cc/h in the form of 0.9 normal saline. Cultures of the blood remain negative, cultures from the peritoneal fluid will be pending once the patient undergoes paracentesis. Patient remains on Zosyn WBC count today is 24.6, improving hemoglobin is 9.1 basic metabolic profile is normal BUN is 40 creatinine 1.09, again her blood cultures are negative so far, Objective - Vital Signs Vital signs: Vital Signs Temp 97.9 F 10/12/23 04:00 Pulse 94 10/12/23 16:15 Resp 18 10/12/23 16:00 BP 91/55 10/12/23 16:00 Pulse Ox 100 10/12/23 16:00 FiO2 45 10/12/23 16:02 Intake & Output 10/11/23 10/12/23 10/12/23 18:59 06:59 18:59 Intake Total 2317.865 1602.494 896.477 Output Total 346 022 6176 Balance 2167.865 1427.494 -1498.523 Weight 77.7 kg Intake: IV 1861 1066 633 .9 pressure bag 66 66 33 Piperacillin-Tazobactam 3 100 100 .375 gm In Sodium Chloride 0.9% 100 ml @ 25 mls/hr IVPB Q8HR [facility] Rx# :[id number] Sodium Chloride 0.9% 1, 695 900 600 000 ml @ 75 mls/hr IV . [id number] [facility] Rx#:[id number] Sodium Chloride 0.9% 1, 1000 000 ml @ 999 mls/hr IV . Q1H1M [facility] Rx#:[id number] Intake, IV Titration 356.865 406.494 183.477 Amount Norepinephrine 4 mg In 185.778 128.121 27.58 Sodium Chloride 0.9% 250 ml @ 0.03 MCG/KG/MIN 6. 221 mls/hr IV .Q24H [facility] Rx#:[id number] Vasopressin 20 unit In 31.748 39.78 51 Sodium Chloride 0.9% 50 ml @ 0.03 UNITS/MIN 4.59 mls/hr IV .Q11H7M [facility] Rx# :[id number] propofoL 1,000 mg In 139.339 238.593 104.897 Empty Bag 1 bag @ 15 MCG/ KG/MIN 4.899 mls/hr IV . [id number] [facility] Rx#:[id number] Tube Feeding 70 100 80 Other 30 30 Output: Drainage 1800 Abdomen 1800 Urine 150 175 595 Other: Voiding Method Indwelling Catheter Indwelling Catheter ABP, PAP, CO, CI - Last Documented Arterial Blood Pressure 109/51 - Exam GENERAL EXAM: Reveals a 48-year-old female intubated mechanically ventilated sedated, on propofol, requiring norepinephrine at a low-dose and vasopressin at 0.03 HEAD: Normocephalic. EYES: Normal reaction of pupils, equal size. NOSE: Clear with pink turbinates. THROAT: No erythema or exudates. Endotracheal tube and orogastric tubes are intact. NECK: No masses, no JVD. CHEST: No chest wall deformity. Symmetrical chest expansion LUNGS: Crackles rhonchi bilaterally CVS: S1 and S2 normal with no audible murmur, regular rhythm. ABDOMEN: Abdominal distention, negative bowel sounds, no guarding or rigidity. SKIN: No rashes CENTRAL NERVOUS SYSTEM: Not assessed, patient is sedated, on propofol.. Psychiatric: Could not assess patient is sedated EXTREMITIES: No clubbing, no edema or cyanosis - Labs CBC & Chem 7: 10/12/23 05:09 10/12/23 05:09 Labs: Abnormal Lab Results - Last 24 Hours (Table) 10/11/23 10/12/23 10/12/23 Range/Units 17:21 00:09 04:05 WBC (3.8-10.6) k/uL RBC (3.80-5.40) m/uL Hgb (11.4-16.0) gm/dL Hct (34.0-46.0) % MCV (80.0-100.0) fL RDW (11.5-15.5) % Plt Count (150-450) k/uL Neutrophils # (1.3-7.7) k/uL Lymphocytes # (1.0-4.8) k/uL Macrocytosis ABG Total CO2 26 H (19-24) mmol/L ABG O2 Saturation 97.2 H (94-97) % Chloride (98-107) mmol/L Carbon Dioxide (22-30) mmol/L BUN (7-17) mg/dL Creatinine (0.52-1.04) mg/dL Glucose (74-99) mg/dL POC Glucose (mg/dL) 300 H 347 H (70-110) mg/dL Calcium (8.4-10.2) mg/dL 10/12/23 10/12/23 10/12/23 Range/Units 04:35 05:09 05:09 WBC 24.6 H (3.8-10.6) k/uL RBC 2.79 L (3.80-5.40) m/uL Hgb 9.1 L (11.4-16.0) gm/dL Hct 29.4 L (34.0-46.0) % MCV 105.4 H (80.0-100.0) fL RDW 22.4 H (11.5-15.5) % Plt Count 144 L (150-450) k/uL Neutrophils # 23.3 H (1.3-7.7) k/uL Lymphocytes # 0.6 L (1.0-4.8) k/uL Macrocytosis Marked A ABG Total CO2 (19-24) mmol/L ABG O2 Saturation (94-97) % Chloride 108 H (98-107) mmol/L Carbon Dioxide 21 L (22-30) mmol/L BUN 40 H (7-17) mg/dL Creatinine 1.09 H (0.52-1.04) mg/dL Glucose 312 H (74-99) mg/dL POC Glucose (mg/dL) 347 H (70-110) mg/dL Calcium 7.9 L (8.4-10.2) mg/dL 10/12/23 10/12/23 10/12/23 Range/Units 06:17 08:41 11:33 WBC (3.8-10.6) k/uL RBC (3.80-5.40) m/uL Hgb (11.4-16.0) gm/dL Hct (34.0-46.0) % MCV (80.0-100.0) fL RDW (11.5-15.5) % Plt Count (150-450) k/uL Neutrophils # (1.3-7.7) k/uL Lymphocytes # (1.0-4.8) k/uL Macrocytosis ABG Total CO2 (19-24) mmol/L ABG O2 Saturation (94-97) % Chloride (98-107) mmol/L Carbon Dioxide (22-30) mmol/L BUN (7-17) mg/dL Creatinine (0.52-1.04) mg/dL Glucose (74-99) mg/dL POC Glucose (mg/dL) 330 H 346 H 318 H (70-110) mg/dL Calcium (8.4-10.2) mg/dL 10/12/23 Range/Units 16:04 WBC (3.8-10.6) k/uL RBC (3.80-5.40) m/uL Hgb (11.4-16.0) gm/dL Hct (34.0-46.0) % MCV (80.0-100.0) fL RDW (11.5-15.5) % Plt Count (150-450) k/uL Neutrophils # (1.3-7.7) k/uL Lymphocytes # (1.0-4.8) k/uL Macrocytosis ABG Total CO2 (19-24) mmol/L ABG O2 Saturation (94-97) % Chloride (98-107) mmol/L Carbon Dioxide (22-30) mmol/L BUN (7-17) mg/dL Creatinine (0.52-1.04) mg/dL Glucose (74-99) mg/dL POC Glucose (mg/dL) 180 H (70-110) mg/dL Calcium (8.4-10.2) mg/dL Microbiology - Last 24 Hours (Table) 10/09/23 00:15 Blood Culture - Preliminary Blood Assessment and Plan Assessment: Impression: Acute hypoxic respiratory failure secondary to bilateral multilobar pneumonia and superimposed congestive heart failure/systolic in nature. Requiring intubation and mechanical ventilation on 10/10/19 Acute pulmonary edema, cardiogenic in nature, although the possibility of noncardiogenic pulmonary edema is not entirely ruled out but felt to be less likely considering the patient's ejection fraction is only 20% and she received significant amount of fluids upon her initial presentation to the ER Ascites, possible spontaneous bacterial peritonitis, patient to have paracentesis today. History of liver cirrhosis related to alcohol abuse, quit drinking over 5 years ago. History of chronic pancreatitis History of anxiety/depression Tobacco dependence syndrome Recommendation: Continue ventilatory support, continue PEEP at 10 and FiO2 at 45% Continue antibiotics/Zosyn/empiric antibiotics for presumptive pneumonia, sepsis, and possible peritonitis. Continue bronchodilators Continue GI and DVT prophylaxis Gentle diuresis to be done today. Continue to monitor strictly I's and O's Continue to monitor electrolytes, continue to monitor renal profile. Check cultures including blood cultures, sputum cultures and peritoneal cultures, blood cultures remain negative so far. Nutrition support/enteral feeding Patient is critically ill, her mother was updated on her condition again today. Prognosis is guarded. Will continue to follow Critical care time is over 30. Time with Patient: Greater than 30
[2023-10-12 18:31] LABS: Appearance,BF Clear (Clear)
[2023-10-12 20:08] LABS: Glucose,Whole Blood 104 mg/dL (70-110)
[2023-10-12 20:32] LABS: Magnesium 2.2 mg/dL (1.6-2.3); Potassium 3.6 mmol/L (3.5-5.1)
[2023-10-12 21:25] LABS: T. Protein, Body Fluid Source Ascites; Total Protein, Body Fluid 343 mg/dL
[2023-10-12 21:45] LABS: Albumin, Fluid Source Ascites
[2023-10-12 21:54] LABS: Glucose,Whole Blood 135 mg/dL (70-110)
[2023-10-12] MEDS: POTASSIUM BICARBONATE/CIT AC 20 MEQ TABLET.EFF NG-TUBE SCH (21:58)
--- NOTE | 2023-10-12 22:14 | P.PN ---
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 Patient states that she has been having shortness of breath for the past week and a half and did get worse in the last few days. Patient tried using her breathing treatments at home but did not get improvement. Patient was recently given antibiotics and prednisone by her physician. She has been increasingly weak and not feeling well. Patient presented to ER for evaluation. He was also complaining of cough without any sputum production. Also complaining of chest tightness and anxiety. Denies any leg swelling. No nausea or vomiting. Patient is also having increased abdominal girth. No prior history of paracentesis as per patient. Denies any fever at home. On admission patient was tachycardic and tachypneic and pulse ox 80% on room air. Currently requiring 8 L of oxygen via nasal cannula. CT of the abdomen pelvis showed patchy bilateral airspace consolidation consistent with multilobar pneumonia. Hepatic steatosis, abdominal ascites. Wall thickening of small bowel correlate for mild enteritis versus spontaneous bacterial peritonitis. CTA chest showed no PE. Patchy bilateral airspace consolidation consistent with multilobar pneumonia. Chest x-ray showed similar multifocal airspace opacities. Laboratory data showed WBC 16.5 hemoglobin 10.0 MCV 102.4 and platelets 188 and neutrophils 14.4 INR 1.7, D-dimer 2.8 Sodium 132 potassium 3.7 chloride 95 bicarbonate 24 BUN 18 and creatinine 0.84 and blood sugar 270 and lactic acid 7.0 on admission, calcium 8.1, total bilirubin level is 4.6 AST 113 ALT 68 and alk phos 208 Troponin 0.012 and proBNP 2040 and albumin 3.0 Influenza A, B, RSV and COVID-19 PCR not detected. 10/10/2023 Patient was transferred to MICU. Overnight patient's respiratory status worsened due to multifocal pneumonia and also patient is receiving fluids at 100 cc/h due to sepsis. Patient was intubated and is on assist-control. Patient is currently requiring pressor support. Chest x-ray this morning showed severe bilateral pulmonary infiltration which has worsened. Was given IV Lasix. 2D echocardiogram showed dilated LV and severe LV systolic dysfunction. Eje ction fraction 30 to 35%. Laboratory showed WBC worsened to 26.6 hemoglobin 10.3 and platelets 190 Sodium 139 potassium 3.6 chloride 108 bicarb is 20 BUN 15 and creatinine 0.64 blood sugar 206 and A1c 6.8 lactic acid 5.4 this morning. Liver enzymes are elevated. Cardiology and pulmonary is on board. Patient is being continued on antibiotics changed to Zosyn. Procalcitonin level is elevated at 0.61. 10/11/2023 Patient is in the MICU. Intubated and sedated. On mechanical ventilator. Patient is also requiring pressor support with Levophed and also on dobutamine drip. Urine output remains low. Patient has been afebrile. Nutrition via NG tube. Patient was also started on IV hydration with normal saline at 75 cc/h. Chest x-ray showed multifocal airspace opacities are not significantly changed. Support tubes and proper positioning. Patient remains on antibiotics in the form of Zosyn. 2D echocardiogram showed left ventricular ejection fraction 30 to 35%. Mild right ventricular dilatation. Trace pericardial effusion and pleural effusion was identified. Laboratory data showed WBC 24.9 hemoglobin 9.6 and platelets 187 Sodium 137 potassium 4.2 chloride 102 bicarb is 26 BUN 25 and creatinine 1.1 and blood sugar 264. Patient is scheduled for paracentesis tomorrow. Blood cultures negative so far. Cardiology and pulmonary is on board. Current medications reviewed. Objective - Vital Signs Vital signs: Vital Signs Temp 97.6 F 10/11/23 12:00 Pulse 106 H 10/11/23 13:00 Resp 20 10/11/23 13:00 BP 107/75 10/11/23 13:00 Pulse Ox 96 10/11/23 13:00 FiO2 45 10/11/23 12:00 Intake & Output 10/10/23 10/11/23 10/11/23 18:59 06:59 18:59 Intake Total 966.618 242.352 4286.321 Output Total 770 350 90 Balance 196.618 574.166 1538.321 Weight 54.431 kg 73.8 kg Intake: IV 45 252 1456 .9 pressure bag 45 72 36 Piperacillin-Tazobactam 3 100 .375 gm In Sodium Chloride 0.9% 100 ml @ 25 mls/hr IVPB Q8H [facility] Rx#: [id number] Piperacillin-Tazobactam 3 100 .375 gm In Sodium Chloride 0.9% 100 ml @ 25 mls/hr IVPB Q8HR [facility] Rx# :[id number] Sodium Chloride 0.9% 1, 80 320 000 ml @ 75 mls/hr IV . [id number] [facility] Rx#:[id number] Sodium Chloride 0.9% 1, 1000 000 ml @ 999 mls/hr IV . Q1H1M [facility] Rx#:[id number] Intake, IV Titration 921.618 606.353 192.321 Amount DOBUTamine DRIP 500 mg In 250 Dextrose/Water 1 250ml. bag @ 1.25 MCG/KG/MIN 2. 041 mls/hr IV .Q24H [facility] Rx#:[id number] Norepinephrine 4 mg In 95.672 392.185 152.043 Sodium Chloride 0.9% 250 ml @ 0.03 MCG/KG/MIN 6. 221 mls/hr IV .Q24H [facility] Rx#:[id number] Piperacillin-Tazobactam 3 100 .375 gm In Sodium Chloride 0.9% 100 ml @ 25 mls/hr IVPB Q8H [facility] Rx#: [id number] Piperacillin-Tazobactam 3 100 .375 gm In Sodium Chloride 0.9% 100 ml @ 25 mls/hr IVPB Q8HR [facility] Rx# :[id number] Potassium Chloride 10 meq 200 In Water For Injection 1 100ml.bag @ 100 mls/hr IVPB Q1H [facility] Rx#: [id number] Sodium Chloride 0.9% 1, 20 000 ml @ 75 mls/hr IV . [id number] [facility] Rx#:[id number] propofoL 1,000 mg In 155.946 214.168 40.278 Empty Bag 1 bag @ 15 MCG/ KG/MIN 4.899 mls/hr IV . [id number] [facility] Rx#:[id number] Tube Feeding 20 Other 30 Output: Urine 770 350 90 Other: Voiding Method Indwelling Catheter Indwelling Catheter Indwelling Catheter # Bowel Movements 1 ABP, PAP, CO, CI - Last Documented Arterial Blood Pressure 109/61 - Exam PHYSICAL EXAMINATION: Patient is intubated and on mechanical ventilator. Sedated. HEENT: Normocephalic. Neck is supple. Pupils reactive. Nostrils clear. Oral cavity is moist. Neck reveals no JVD, carotid bruits, or thyromegaly. CHEST EXAMINATION: Trachea is central. Symmetrical expansion. Bibasilar crackles and diminished sounds. CARDIAC: Normal S1, S2 with no gallops. No murmurs ABDOMEN: Soft. Bowel sounds present. Abdomen is distended with ascites. Nontender. No organomegaly. No abdominal bruits. Extremities: Bilateral lower extremity trace edema. No clubbing or cyanosis Neurologically patient is sedated and intubated.. No gross focal deficits noted Skin: No rash or skin lesions. Psychiatric: Could not be assessed at this time. Musculoskeletal: No joint swelling or deformity. - Labs CBC & Chem 7: 10/12/23 05:09 10/12/23 20:08 Labs: Abnormal Lab Results - Last 24 Hours (Table) 10/10/23 10/10/23 10/10/23 Range/Units 04:49 14:45 15:52 WBC (3.8-10.6) k/uL RBC (3.80-5.40) m/uL Hgb (11.4-16.0) gm/dL Hct (34.0-46.0) % MCV (80.0-100.0) fL RDW (11.5-15.5) % Neutrophils # (1.3-7.7) k/uL Macrocytosis ABG pO2 (83-108) mmHg ABG HCO3 26 H (21-25) mmol/L ABG Total CO2 27 H (19-24) mmol/L ABG O2 Saturation 97.1 H (94-97) % Potassium 3.3 L (3.5-5.1) mmol/L BUN (7-17) mg/dL Creatinine (0.52-1.04) mg/dL Glucose (74-99) mg/dL POC Glucose (mg/dL) (70-110) mg/dL Hemoglobin A1c 6.8 H (<=6.0) % Calcium (8.4-10.2) mg/dL 10/10/23 10/10/23 10/11/23 Range/Units 18:23 20:44 04:25 WBC (3.8-10.6) k/uL RBC (3.80-5.40) m/uL Hgb (11.4-16.0) gm/dL Hct (34.0-46.0) % MCV (80.0-100.0) fL RDW (11.5-15.5) % Neutrophils # (1.3-7.7) k/uL Macrocytosis ABG pO2 (83-108) mmHg ABG HCO3 (21-25) mmol/L ABG Total CO2 (19-24) mmol/L ABG O2 Saturation (94-97) % Potassium (3.5-5.1) mmol/L BUN 25 H (7-17) mg/dL Creatinine 1.10 H (0.52-1.04) mg/dL Glucose 264 H (74-99) mg/dL POC Glucose (mg/dL) 265 H 242 H (70-110) mg/dL Hemoglobin A1c (<=6.0) % Calcium 8.0 L (8.4-10.2) mg/dL 10/11/23 10/11/23 10/11/23 Range/Units 04:25 05:48 06:20 WBC 24.9 H (3.8-10.6) k/uL RBC 2.93 L (3.80-5.40) m/uL Hgb 9.6 L (11.4-16.0) gm/dL Hct 30.7 L (34.0-46.0) % MCV 104.8 H (80.0-100.0) fL RDW 22.1 H (11.5-15.5) % Neutrophils # 23.0 H (1.3-7.7) k/uL Macrocytosis Marked A ABG pO2 128 H (83-108) mmHg ABG HCO3 27 H (21-25) mmol/L ABG Total CO2 28 H (19-24) mmol/L ABG O2 Saturation 99.0 H (94-97) % Potassium (3.5-5.1) mmol/L BUN (7-17) mg/dL Creatinine (0.52-1.04) mg/dL Glucose (74-99) mg/dL POC Glucose (mg/dL) 317 H (70-110) mg/dL Hemoglobin A1c (<=6.0) % Calcium (8.4-10.2) mg/dL 10/11/23 Range/Units 11:23 WBC (3.8-10.6) k/uL RBC (3.80-5.40) m/uL Hgb (11.4-16.0) gm/dL Hct (34.0-46.0) % MCV (80.0-100.0) fL RDW (11.5-15.5) % Neutrophils # (1.3-7.7) k/uL Macrocytosis ABG pO2 (83-108) mmHg ABG HCO3 (21-25) mmol/L ABG Total CO2 (19-24) mmol/L ABG O2 Saturation (94-97) % Potassium (3.5-5.1) mmol/L BUN (7-17) mg/dL Creatinine (0.52-1.04) mg/dL Glucose (74-99) mg/dL POC Glucose (mg/dL) 261 H (70-110) mg/dL Hemoglobin A1c (<=6.0) % Calcium (8.4-10.2) mg/dL Microbiology - Last 24 Hours (Table) 10/09/23 00:15 Blood Culture - Preliminary Blood Assessment and Plan Assessment: Acute hypoxic respiratory failure secondary to multifocal pneumonia and pulmonary edema. Patient is 8 L high flow oxygen--> intubated on mechanical ventilator. Pulmonary edema likely due to cardiogenic with low ejection fraction 30 to 35%. Multifocal pneumonia Sepsis/septic shock secondary to above. Requiring pressor support Acute HFrEF with ejection fraction 30 -45% COPD with acute exacerbation Lactic acidosis 7.0 on admission Alcoholic liver cirrhosis Ascites Hepatic steatosis and hyperbilirubinemia and elevated liver enzymes History of severe alcohol abuse. Quit 5 years ago History of chronic pancreatitis Anxiety/depression DVT prophylaxis with Lovenox subcu GI prophylaxis Plan: Patient is on mechanical ventilator. Continued on antibiotics in the form of Zosyn. Patient will be continued on IV hydration with normal saline. Continued on pressor support. Interventional radiology consulted for paracentesis and fluid analysis including culture. Cardiology and critical care team is on board. Prognosis is guarded. Time with Patient: Greater than 30
[2023-10-12 23:45] LABS: Glucose,Whole Blood 167 mg/dL (70-110)
[2023-10-13 04:34] LABS: Glucose,Whole Blood 178 mg/dL (70-110)
[2023-10-13 04:50] LABS: Anisocytosis Moderate; Basophils % (A) 0 %; Eosinophils % (A) 0 %; HGB 8.7 gm/dL (11.4-16.0); Hypochromasia Marked; Lymphocytes # (A) 0.5 k/uL (1.0-4.8); Lymphocytes % (A) 2 %; MCH 32.1 pg (25.0-35.0); MCHC 30.9 g/dL (31.0-37.0); MCV 103.9 fL (80.0-100.0); Macrocytosis Marked; Mean Platelet Volume 9.7; Monocytes # (A) 0.6 k/uL (0-1.0); Monocytes % (A) 3 %; Neutrophils % (A) 95 %; Platelet Count 127 k/uL (150-450); RBC 2.69 m/uL (3.80-5.40); WBC 25.4 k/uL (3.8-10.6)
[2023-10-13 05:05] LABS: African American GFR (CKD) 75 (>60 ml/min/1.73 sqM); Anion Gap 5 mmol/L; Blood Urea Nitrogen 49 mg/dL (7-17); Carbon Dioxide 24 mmol/L (22-30); Chloride 111 mmol/L (98-107); Glucose 159 mg/dL (74-99); Magnesium 2.1 mg/dL (1.6-2.3); Non-African American GFR(CKD) 65 (>60 ml/min/1.73 sqM); Potassium 4.2 mmol/L (3.5-5.1); Sodium 140 mmol/L (137-145)
[2023-10-13 05:30] LABS: ABG HCO3 26 mmol/L (21-25); ABG Oxygen Saturation 99.5 % (94-97); ABG PCO2 39 mmHg (35-45); ABG PH 7.43 (7.35-7.45); ABG PO2 148 mmHg (83-108); ABG TCO2 28 mmol/L (19-24); Allen Test Performed? Yes
[2023-10-13] MEDS: SODIUM CHLORIDE 0.9% 500 ML 500 ML IV ONE ×3 (06:17→12:39)
--- NOTE | 2023-10-13 07:54 | P.PN ---
Subjective Progress Note Date: 10/13/23 PROGRESS NOTE The patient is a 48-year-old female with a history of chronic tobacco use, prior history of alcohol intake with liver cirrhosis, ascites and chronic pancreatitis who presented with symptoms of progressive dyspnea and was diagnosed with bilateral multilobar pneumonia, this morning she got more dyspneic requiring mechanical ventilation. Cardiology consultation was requested for possible CHF. The patient has no prior documented history of CAD. Her echocardiogram in 2018 showed a preserved systolic function. She is in sinus mechanism, on low-dose of norepinephrine. She has no evidence of malignant arrhythmia. On admission she had leukocytosis, elevated plasma lactic acid. Her troponin was less then 0.012 and her NT proBNP was 2040. She was in sinus mechanism with sinus tachycardia and intermittent incomplete left bundle branch block that appears to be rate related. Her IVCD was not noted in 2019. The nursing staff have been suctioning greenish-yellowish sputum from her ET tube. October 11: The patient remains intubated and sedated. She is on IV dobutamine 2.5 mcg/kg/min in addition to norepinephrine. Her echocardiogram showed an impaired systolic function with an ejection fraction of 30 to 35%. Of note that the patient had a normal LV systolic function in 2019. She continues to be in sinus mechanism and sinus tachycardia. There is no evidence of malignant arrhythmia. Her urinary output is borderline on IV Lasix. Her chest x-ray shows improvement in her infiltrate. October 12: The patient remains intubated and sedated. Off dobutamine on the lower dose of norepinephrine and continues to be on vasopressin. She has been getting IV fluid at 75 cc an hour. Her urinary output is borderline. She is afebrile. She continues to be in sinus mechanism with no evidence of atrial fibrillation. She may undergo paracentesis today. October 13: The patient remains intubated and sedated. She is on IV vasopressin, off norepinephrine. She continues to be in sinus mechanism. She underwent paracentesis yesterday. Her urine output is on the low side and has received IV fluid bolus earlier today. She received 1 dose of IV diuretics yesterday Medications: methylprednisolone, Protonix, thiamine, Pulmicort, Zosyn, vasopressin PHYSICAL EXAMINATION: Blood pressure 100/50 heart rate 82, afebrile LUNGS: Clear to auscultation, anteriorly HEART: Regular rate and rhythm, S1, S2. No S3. No systolic murmur ABDOMEN: Soft, positive bowel sounds, no organomegaly EXTREMETIES: No edema LAB: WBC 25.4, hemoglobin 8.7 1, sodium 140, BUN 49, creatinine 1.03 IMPRESSION: 1. Acute respiratory failure with multilobar bilateral pneumonia, requiring mechanical ventilation 2. Cardiomyopathy by echocardiogram with ejection fraction of 30 to 35%, could be acute related to the infectious process. Patient in the past had a normal systolic function and there is no evidence of acute ischemic event 3. History of cirrhosis and recurrent ascites related to a prior history of alcohol intake. Patient has not been drinking for 5 years, post paracentesis yesterday 4. Chronic tobacco use 5. Acute renal injury, improving PLAN: 1. Wean vasopressin as tolerated 2. Once off vasopressors if stable start beta-megan and depending on the blood pressure and renal function THADDEUS inhibitor 3. Follow renal functions 4. Depending on her progress further recommendations will be made Objective - Vital Signs Vital signs: Vital Signs Temp 97.7 F 10/13/23 04:00 Pulse 82 10/13/23 07:00 Resp 20 10/13/23 07:00 BP 92/61 10/13/23 07:00 Pulse Ox 99 10/13/23 07:00 FiO2 35 10/13/23 06:30 Intake & Output 10/12/23 10/13/23 10/13/23 18:59 06:59 18:59 Intake Total 6444.606 3178.624 616 Output Total 2480 335 15 Balance -7141.892 4065.624 601 Weight 78 kg Intake: IV 976 985 581 .9 pressure bag 51 60 6 Piperacillin-Tazobactam 3 100 100 .375 gm In Sodium Chloride 0.9% 100 ml @ 25 mls/hr IVPB Q8HR [facility] Rx# :[id number] Sodium Chloride 0.9% 1, 825 825 75 000 ml @ 75 mls/hr IV . [id number] [facility] Rx#:[id number] Sodium Chloride 0.9% 500 500 ml 500 ml @ 999 mls/hr IV .Q31M [facility] Rx#:[id number] Intake, IV Titration 223.830 184.624 Amount Norepinephrine 4 mg In 27.58 27.860 Sodium Chloride 0.9% 250 ml @ 0.03 MCG/KG/MIN 6. 221 mls/hr IV .Q24H [facility] Rx#:[id number] Vasopressin 20 unit In 54.774 56.764 Sodium Chloride 0.9% 50 ml @ 0.03 UNITS/MIN 4.59 mls/hr IV .Q11H7M [facility] Rx# :[id number] propofoL 1,000 mg In 141.476 100 Empty Bag 1 bag @ 15 MCG/ KG/MIN 4.899 mls/hr IV . [id number] [facility] Rx#:[id number] Tube Feeding 160 370 35 Other 30 90 Output: Drainage 1800 Abdomen 1800 Urine 680 335 15 Other: Voiding Method Indwelling Catheter Indwelling Catheter ABP, PAP, CO, CI - Last Documented Arterial Blood Pressure 100/52 - Labs CBC & Chem 7: 10/13/23 04:30 10/13/23 04:30 Labs: Abnormal Lab Results - Last 24 Hours (Table) 10/12/23 10/12/23 10/12/23 Range/Units 08:41 11:33 16:04 WBC (3.8-10.6) k/uL RBC (3.80-5.40) m/uL Hgb (11.4-16.0) gm/dL Hct (34.0-46.0) % MCV (80.0-100.0) fL MCHC (31.0-37.0) g/dL RDW (11.5-15.5) % Plt Count (150-450) k/uL Neutrophils # (1.3-7.7) k/uL Lymphocytes # (1.0-4.8) k/uL Macrocytosis ABG pO2 (83-108) mmHg ABG HCO3 (21-25) mmol/L ABG Total CO2 (19-24) mmol/L ABG O2 Saturation (94-97) % Chloride (98-107) mmol/L BUN (7-17) mg/dL Glucose (74-99) mg/dL POC Glucose (mg/dL) 346 H 318 H 180 H (70-110) mg/dL Calcium (8.4-10.2) mg/dL 10/12/23 10/12/23 10/13/23 Range/Units 21:53 23:44 04:30 WBC 25.4 H (3.8-10.6) k/uL RBC 2.69 L (3.80-5.40) m/uL Hgb 8.7 L (11.4-16.0) gm/dL Hct 28.0 L (34.0-46.0) % MCV 103.9 H (80.0-100.0) fL MCHC 30.9 L (31.0-37.0) g/dL RDW 22.0 H (11.5-15.5) % Plt Count 127 L (150-450) k/uL Neutrophils # 24.0 H (1.3-7.7) k/uL Lymphocytes # 0.5 L (1.0-4.8) k/uL Macrocytosis Marked A ABG pO2 (83-108) mmHg ABG HCO3 (21-25) mmol/L ABG Total CO2 (19-24) mmol/L ABG O2 Saturation (94-97) % Chloride (98-107) mmol/L BUN (7-17) mg/dL Glucose (74-99) mg/dL POC Glucose (mg/dL) 135 H 167 H (70-110) mg/dL Calcium (8.4-10.2) mg/dL 10/13/23 10/13/23 10/13/23 Range/Units 04:30 04:33 05:28 WBC (3.8-10.6) k/uL RBC (3.80-5.40) m/uL Hgb (11.4-16.0) gm/dL Hct (34.0-46.0) % MCV (80.0-100.0) fL MCHC (31.0-37.0) g/dL RDW (11.5-15.5) % Plt Count (150-450) k/uL Neutrophils # (1.3-7.7) k/uL Lymphocytes # (1.0-4.8) k/uL Macrocytosis ABG pO2 148 H (83-108) mmHg ABG HCO3 26 H (21-25) mmol/L ABG Total CO2 28 H (19-24) mmol/L ABG O2 Saturation 99.5 H (94-97) % Chloride 111 H (98-107) mmol/L BUN 49 H (7-17) mg/dL Glucose 159 H (74-99) mg/dL POC Glucose (mg/dL) 178 H (70-110) mg/dL Calcium 8.0 L (8.4-10.2) mg/dL Microbiology - Last 24 Hours (Table) 10/12/23 10:07 Gram Stain - Preliminary Ascites Fluid 10/09/23 00:15 Blood Culture - Preliminary Blood
[2023-10-13 08:27] LABS: Glucose,Whole Blood 195 mg/dL (70-110)
[2023-10-13] MEDS: ENOXAPARIN 40 MG/0.4 ML SYRINGE SQ SCH (08:40)
--- NOTE | 2023-10-13 08:41 | XR ---
EXAMINATION TYPE: XR chest 1V portable DATE OF EXAM: 10/13/2023 5:46 AM CLINICAL INDICATION:Female, 48 years old with history of assess lungs; [facility] COMPARISON: Chest radiographs from TECHNIQUE: XR chest 1V portable Frontal view of the chest. FINDINGS: Lungs/Pleura: There is no evidence of pleural effusion, focal consolidation, or pneumothorax. Pulmonary vascularity: Pulmonary vascular congestion. Heart/mediastinum: Cardiomediastinal silhouette is unremarkable. Musculoskeletal: No acute osseous pathology. Other findings: None Lines/Tubes: Endotracheal tube with distal tip 4.4 cm above the jan. Nasogastric tube with its distal tip and side-port projecting under the diaphragm. IMPRESSION: Stable exam, mild pulmonary edema.
[2023-10-13 11:53] LABS: Glucose,Whole Blood 208 mg/dL (70-110)
--- NOTE | 2023-10-13 15:25 | P.PN ---
Subjective Progress Note Date: 10/13/23 Principal diagnosis: Acute hypoxic respiratory failure secondary to pneumonia, sepsis, and acute pulmonary edema/systolic congestive heart failure This is a pleasant 48-year-old female patient with a known history of alcoholism with subsequent cirrhosis and chronic pancreatitis. Quit drinking approximately 5 years ago. She does have chronic and ongoing tobacco dependence, a nxiety/depression, gastroesophageal reflux disease. She has a 2 week history of initially a dry nonproductive cough that had progressed into a loose congested cough with shortness of breath. She presented here to the emergency room yesterday. DT scan of the abdomen and pelvis revealed patchy bilateral airspace consolidation consistent with multifocal lobar pneumonia. Hepatic steatosis. Abdominal ascites. Wall thickening of the small bowel, correlate for mild enteritis versus spontaneous bacterial peritonitis. CT angiogram ruled out pulmonary embolism. There is again noted patchy bilateral airspace consolidation consistent with multilobar pneumonia. Chest x-ray shows similar multifocal airspace opacities. Count 16.5. Hemoglobin 10.0. Platelets 188. INR 1.7. D-dimer 2.80. Sodium 132. Potassium 3.7. Bicarb 24. BUN 18. Creatinine 0.84. Glucose 270. Initial lactic acid 7.0. Currently 2.2. AST 113. ALT 68. Alk phos 208. ProBNP 2040. Lipase 49. Serum alcohol less than 10. Viral screen negative. She is seen today in consultation in the emergency department. She is currently resting on a stretcher. She is awake and alert. She is requiring 10 L high flow nasal cannula to maintain O2 saturations in the 90s. She drops into the 70s on room air. She was initiated on ceftriaxone and azithromycin azithromycin. NicoDerm patch in place. She received 3 L of fluid resuscitation. Normal saline at 100 ML's per hour. Patient with very today on 10/10/2023, I saw this patient yesterday on consultation, and recommended transferring the patient to the ICU after she was seen in the ER. Apparently the patient was transferred to the ICU, and early this morning her pulmonary status continued to deteriorate, patient developed worsening pulmonary edema with underlying pneumonia, patient did receive significant amount of fluids for her sepsis presentation, and she developed pulmonary edema in addition to her underlying pneumonia. She is now on assist- control rate of 20 tidal volume 350 FiO2 100% and PEEP of 10. ABG this morning showed a pO2 of 80 pCO2 43 pH of 7.34. Patient had an echocardiogram showed severe LV dysfunction with ejection fraction of 30%., There was no evidence of valvular heart disease. Considering the findings, Lasix was given at 60 mg IV push every 12 hours, patient remains empirically on Zosyn for pneumonia and for possible abdominal sepsis. She is yet to have paracentesis to rule out acute spontaneous peritonitis in the last 24 hours, patient developed worsening pulmonary edema, and worsening abdominal distention with worsening ascites. WBC count today is 26.6 hemoglobin is 10.3. Basic metabolic profile is relatively n ormal, renal profile is normal. Calcitonin level is 0.61. BNP yesterday was 2039, influenza and Legionella as well as RSV and COVID-19 screening came back all negative Reevaluated today on 10/11/2023, patient remains in the ICU, intubated and mechanically ventilated. Patient is on assist-control rate of 20 tidal volume 350 FiO2 50% PEEP of 12, ABG showed a pO2 of 128 pCO2 43 pH of 7.41, hence I dropped the PEEP down to 10 and FiO2 down to 45%. Chest x-ray is showing improvement in her pneumonia and improvement in her pulmonary edema. Urine output remains marginal at 25 to 30 cc/h, blood pressure remains marginal in spite of being on dobutamine remain at 2.5 mcg/kg/min norepinephrine at 0.15 mcg/kg/min propofol 40 mcg/kg/min, patient is also on IV fluids at KVO which I have increased today to 75 cc/h and patient remains on Zosyn empirically for pneumonia, and for possible peritonitis. Interventional radiology is delaying and not planning to do paracentesis at this point mostly because of patient's blood pressure is marginal. I will recommend vasopressin on this patient, and will likely discontinue dobutamine on this patient. I have discontinued her Lasix, and started IV fluid at 0.9 normal saline 75 cc/h will initiate nutritional support/vital HP today. Patient remains critically ill, but nonetheless she is improving, updated her family/father and mother at bedside on her condition. WBC count is 24.9 hemoglobin 9.6. WBC count is improving compared to yesterday basic metabolic profile is normal renal profile showed a BUN of 25 creatinine 1.10 slightly worse compared to admission creatinine of 0.64, and that is not surprising Patient was reevaluated today on 10/12/2023, remains in the ICU, intubated and mechanically ventilated, patient is on assist-control rate of 20 tidal volume 350 FiO2 45% PEEP of 10 ABG showed a pO2 of 88 pCO2 37 pH of 7.44. Urine output is marginal roughly 10 to 15 cc/h, hence I recommended a dose of Lasix to be given 40 mg IV push, will hold on fluid boluses since her chest x-ray is showing worsening interstitial edema, slightly worse compared to the chest x-ray she had yesterday. However the patient is now on lesser PEEP and she is on lesser FiO2. Scheduled to have paracentesis today. Patient is on vasopressin at 0.03, she i s also on norepinephrine at 0.03 mcg/kg/min IV fluid at 75 cc/h in the form of 0.9 normal saline. Cultures of the blood remain negative, cultures from the peritoneal fluid will be pending once the patient undergoes paracentesis. Patient remains on Zosyn WBC count today is 24.6, improving hemoglobin is 9.1 basic metabolic profile is normal BUN is 40 creatinine 1.09, again her blood cultures are negative so far, Patient was noted today on 10/13/2023, remains in the ICU, intubated and mechanically ventilated. She is now on assist-control rate of 20 tidal volume 350 FiO2 35% PEEP is 10 ABG showed a pO2 of 148 pCO2 39 pH of 7.43 has significant improvement noted in her ABG and it is correlated with the improvement noted on the chest x-ray. I cut down the PEEP down to 5 and FiO2 was made 40%. Patient remains on vasopressin but she is off norepinephrine or vasopressin at 0.02 units/min, she is on propofol at 30 mcg/kg/min IV fluid remains at 75 cc/h vital HP at 35 cc/h. Her urine output has been marginal, fluid boluses were given about 1 L, if no improvement may at that point consider diuresing the patient. Remains on Zosyn empirically, cultures remain negative. Negative cultures also on the peritoneal fluid so far negative blood cultures WBC count is down to 25.4 hemoglobin 8.7, platelets are 1 27,000 basic metabolic profile is normal renal profile is acceptable with a BUN of 49 creat 1.03. Blood sugar a bit elevated at 178 chest x-ray continues to show improvement with mild interstitial edema/infiltrates Objective - Vital Signs Vital signs: Vital Signs Temp 98.8 F 10/13/23 08:00 Pulse 96 10/13/23 13:00 Resp 20 10/13/23 13:00 BP 116/80 10/13/23 12:00 Pulse Ox 99 10/13/23 13:00 FiO2 40 10/13/23 11:59 Intake & Output 10/12/23 10/13/23 10/13/23 18:59 06:59 18:59 Intake Total 9542.025 8956.624 2548.635 Output Total 2480 335 220 Balance -3742.536 1274.624 2328.635 Weight 78 kg 78 kg Intake: IV 111 189 3732 .9 pressure bag 51 60 54 Piperacillin-Tazobactam 3 100 100 100 .375 gm In Sodium Chloride 0.9% 100 ml @ 25 mls/hr IVPB Q8HR [facility] Rx# :[id number] Sodium Chloride 0.9% 1, 825 825 675 000 ml @ 75 mls/hr IV . [id number] [facility] Rx#:[id number] Sodium Chloride 0.9% 500 1500 ml 500 ml @ 999 mls/hr IV .Q31M [facility] Rx#:[id number] Intake, IV Titration 223.830 184.624 84.635 Amount Norepinephrine 4 mg In 27.58 27.860 Sodium Chloride 0.9% 250 ml @ 0.03 MCG/KG/MIN 6. 221 mls/hr IV .Q24H [facility] Rx#:[id number] Vasopressin 20 unit In 54.774 56.764 15.504 Sodium Chloride 0.9% 50 ml @ 0.03 UNITS/MIN 4.59 mls/hr IV .Q11H7M [facility] Rx# :[id number] propofoL 1,000 mg In 141.476 100 69.131 Empty Bag 1 bag @ 15 MCG/ KG/MIN 4.899 mls/hr IV . [id number] [facility] Rx#:[id number] Tube Feeding 160 370 105 Other 30 90 30 Output: Drainage 1800 Abdomen 1800 Urine 680 335 220 Other: Voiding Method Indwelling Catheter Indwelling Catheter ABP, PAP, CO, CI - Last Documented Arterial Blood Pressure 114/56 - Exam GENERAL EXAM: Reveals a 48-year-old female intubated mechanically ventilated sedated, on propofol, and on vasopressin 0.02 units/min HEAD: Normocephalic. EYES: Normal reaction of pupils, equal size. NOSE: Clear with pink turbinates. THROAT: No erythema or exudates. Endotracheal tube and orogastric tubes are int act. NECK: No masses, no JVD. CHEST: No chest wall deformity. Symmetrical chest expansion LUNGS: Crackles rhonchi bilaterally CVS: S1 and S2 normal with no audible murmur, regular rhythm. ABDOMEN: Abdominal distention, negative bowel sounds, no guarding or rigidity. SKIN: No rashes CENTRAL NERVOUS SYSTEM: Not assessed, patient is sedated, on propofol.. Psychiatric: Could not assess patient is sedated EXTREMITIES: No clubbing, no edema or cyanosis - Labs CBC & Chem 7: 10/13/23 04:30 10/13/23 04:30 Labs: Abnormal Lab Results - Last 24 Hours (Table) 10/12/23 10/12/23 10/12/23 Range/Units 16:04 21:53 23:44 WBC (3.8-10.6) k/uL RBC (3.80-5.40) m/uL Hgb (11.4-16.0) gm/dL Hct (34.0-46.0) % MCV (80.0-100.0) fL MCHC (31.0-37.0) g/dL RDW (11.5-15.5) % Plt Count (150-450) k/uL Neutrophils # (1.3-7.7) k/uL Lymphocytes # (1.0-4.8) k/uL Macrocytosis ABG pO2 (83-108) mmHg ABG HCO3 (21-25) mmol/L ABG Total CO2 (19-24) mmol/L ABG O2 Saturation (94-97) % Chloride (98-107) mmol/L BUN (7-17) mg/dL Glucose (74-99) mg/dL POC Glucose (mg/dL) 180 H 135 H 167 H (70-110) mg/dL Calcium (8.4-10.2) mg/dL 10/13/23 10/13/23 10/13/23 Range/Units 04:30 04:30 04:33 WBC 25.4 H (3.8-10.6) k/uL RBC 2.69 L (3.80-5.40) m/uL Hgb 8.7 L (11.4-16.0) gm/dL Hct 28.0 L (34.0-46.0) % MCV 103.9 H (80.0-100.0) fL MCHC 30.9 L (31.0-37.0) g/dL RDW 22.0 H (11.5-15.5) % Plt Count 127 L (150-450) k/uL Neutrophils # 24.0 H (1.3-7.7) k/uL Lymphocytes # 0.5 L (1.0-4.8) k/uL Macrocytosis Marked A ABG pO2 (83-108) mmHg ABG HCO3 (21-25) mmol/L ABG Total CO2 (19-24) mmol/L ABG O2 Saturation (94-97) % Chloride 111 H (98-107) mmol/L BUN 49 H (7-17) mg/dL Glucose 159 H (74-99) mg/dL POC Glucose (mg/dL) 178 H (70-110) mg/dL Calcium 8.0 L (8.4-10.2) mg/dL 10/13/23 10/13/23 10/13/23 Range/Units 05:28 08:25 11:51 WBC (3.8-10.6) k/uL RBC (3.80-5.40) m/uL Hgb (11.4-16.0) gm/dL Hct (34.0-46.0) % MCV (80.0-100.0) fL MCHC (31.0-37.0) g/dL RDW (11.5-15.5) % Plt Count (150-450) k/uL Neutrophils # (1.3-7.7) k/uL Lymphocytes # (1.0-4.8) k/uL Macrocytosis ABG pO2 148 H (83-108) mmHg ABG HCO3 26 H (21-25) mmol/L ABG Total CO2 28 H (19-24) mmol/L ABG O2 Saturation 99.5 H (94-97) % Chloride (98-107) mmol/L BUN (7-17) mg/dL Glucose (74-99) mg/dL POC Glucose (mg/dL) 195 H 208 H (70-110) mg/dL Calcium (8.4-10.2) mg/dL Microbiology - Last 24 Hours (Table) 10/12/23 09:05 Gram Stain - Preliminary Sputum Sputum Culture - Preliminary Marleni albicans 10/12/23 10:07 Gram Stain - Preliminary Ascites Fluid Body Fluid Culture - Preliminary 10/09/23 00:15 Blood Culture - Preliminary Blood Assessment and Plan Assessment: Impression: Acute hypoxic respiratory failure secondary to bilateral multilobar pneumonia and superimposed congestive heart failure/systolic in nature. Requiring intubation and mechanical ventilation on 10/10/23 Acute pulmonary edema, cardiogenic in nature, although the possibility of noncardiogenic pulmonary edema is not entirely ruled out but felt to be less likely considering the patient's ejection fraction is only 20% and she received significant amount of fluids upon her initial presentation to the ER Ascites, status post paracentesis, cultures negative on peritoneal fluid so far History of liver cirrhosis related to alcohol abuse, quit drinking over 5 years ago. History of chronic pancreatitis History of anxiety/depression Tobacco dependence syndrome Recommendation: Continue ventilatory support, vent settings were adjusted, in the meantime I am planning to hold sedation and assess the patient for potential weaning today. 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 Continue to monitor strictly I's and O's Check cultures including blood cultures, sputum cultures and peritoneal cultures, blood cultures remain negative so far. Nutrition support/enteral feeding Updated her mother about her condition today again and made aware that we may give the patient a weaning trial and if tolerated may even proceed to extubation Patient is critically ill Prognosis is guarded. Will continue to follow Critical care time is over 30. Time with Patient: Greater than 30
[2023-10-13 16:46] LABS: Glucose,Whole Blood 119 mg/dL (70-110)
[2023-10-13 19:38] LABS: Glucose,Whole Blood 139 mg/dL (70-110)
[2023-10-13 23:15] LABS: Glucose,Whole Blood 145 mg/dL (70-110)
--- NOTE | 2023-10-14 00:36 | P.PN ---
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 Patient states that she has been having shortness of breath for the past week and a half and did get worse in the last few days. Patient tried using her breathing treatments at home but did not get improvement. Patient was recently given antibiotics and prednisone by her physician. She has been increasingly weak and not feeling well. Patient presented to ER for evaluation. He was also complaining of cough without any sputum production. Also complaining of chest tightness and anxiety. Denies any leg swelling. No nausea or vomiting. Patient is also having increased abdominal girth. No prior history of paracentesis as per patient. Denies any fever at home. On admission patient was tachycardic and tachypneic and pulse ox 80% on room air. Currently requiring 8 L of oxygen via nasal cannula. CT of the abdomen pelvis showed patchy bilateral airspace consolidation consistent with multilobar pneumonia. Hepatic steatosis, abdominal ascites. Wall thickening of small bowel correlate for mild enteritis versus spontaneous bacterial peritonitis. CTA chest showed no PE. Patchy bilateral airspace consolidation consistent with multilobar pneumonia. Chest x-ray showed similar multifocal airspace opacities. Laboratory data showed WBC 16.5 hemoglobin 10.0 MCV 102.4 and platelets 188 and neutrophils 14.4 INR 1.7, D-dimer 2.8 Sodium 132 potassium 3.7 chloride 95 bicarbonate 24 BUN 18 and creatinine 0.84 and blood sugar 270 and lactic acid 7.0 on admission, calcium 8.1, total bilirubin level is 4.6 AST 113 ALT 68 and alk phos 208 Troponin 0.012 and proBNP 2040 and albumin 3.0 Influenza A, B, RSV and COVID-19 PCR not detected. 10/10/2023 Patient was transferred to MICU. Overnight patient's respiratory status worsened due to multifocal pneumonia and also patient is receiving fluids at 100 cc/h due to sepsis. Patient was intubated and is on assist-control. Patient is currently requiring pressor support. Chest x-ray this morning showed severe bilateral pulmonary infiltration which has worsened. Was given IV Lasix. 2D echocardiogram showed dilated LV and severe LV systolic dysfunction. Eje ction fraction 30 to 35%. Laboratory showed WBC worsened to 26.6 hemoglobin 10.3 and platelets 190 Sodium 139 potassium 3.6 chloride 108 bicarb is 20 BUN 15 and creatinine 0.64 blood sugar 206 and A1c 6.8 lactic acid 5.4 this morning. Liver enzymes are elevated. Cardiology and pulmonary is on board. Patient is being continued on antibiotics changed to Zosyn. Procalcitonin level is elevated at 0.61. 10/11/2023 Patient is in the MICU. Intubated and sedated. On mechanical ventilator. Patient is also requiring pressor support with Levophed and also on dobutamine drip. Urine output remains low. Patient has been afebrile. Nutrition via NG tube. Patient was also started on IV hydration with normal saline at 75 cc/h. Chest x-ray showed multifocal airspace opacities are not significantly changed. Support tubes and proper positioning. Patient remains on antibiotics in the form of Zosyn. 2D echocardiogram showed left ventricular ejection fraction 30 to 35%. Mild right ventricular dilatation. Trace pericardial effusion and pleural effusion was identified. Laboratory data showed WBC 24.9 hemoglobin 9.6 and platelets 187 Sodium 137 potassium 4.2 chloride 102 bicarb is 26 BUN 25 and creatinine 1.1 and blood sugar 264. Patient is scheduled for paracentesis tomorrow. Blood cultures negative so far. Cardiology and pulmonary is on board. 10/12/2023 Patient is in the MICU. Remains intubated and sedated. On assist-control with respiratory of 20 tidal volume 350 and FiO2 40% and PEEP of 10. Continue to be on vasopressin and norepinephrine. Patient was also started on IV hydration with normal saline at 75 cc/h. Urine output is marginal. Patient remains on antibiotics Zosyn. Repeat chest x-ray this morning showed similar multifocal airspace opacities. Patient was given a dose of IV Lasix. Stable support tubes. Laboratory data showed WBC 24.6 hemoglobin 9.1 and platelets 144 BUN 40 and creatinine 1.09 and blood sugar is elevated at 312. Levemir dose increased to 12 units twice daily and continue with insulin sliding scale. Cardiology and critical care team is on board.Patient is scheduled to go for paracentesis today. Current medications reviewed. Objective - Vital Signs Vital signs: Vital Signs Temp 98.6 F 10/12/23 20:00 Pulse 99 10/12/23 20:30 Resp 20 10/12/23 20:30 BP 106/69 10/12/23 20:30 Pulse Ox 99 10/12/23 20:30 FiO2 45 10/12/23 20:00 Intake & Output 10/12/23 10/12/23 10/13/23 06:59 18:59 06:59 Intake Total 1056.249 8014.830 279.860 Output Total 175 2480 45 Balance 1427.494 -1090.170 234.860 Weight 77.7 kg Intake: IV 1066 976 162 .9 pressure bag 66 51 12 Piperacillin-Tazobactam 3 100 100 .375 gm In Sodium Chloride 0.9% 100 ml @ 25 mls/hr IVPB Q8HR [facility] Rx# :[id number] Sodium Chloride 0.9% 1, 900 825 150 000 ml @ 75 mls/hr IV . [id number] [facility] Rx#:[id number] Intake, IV Titration 406.494 223.830 27.860 Amount Norepinephrine 4 mg In 128.121 27.58 27.860 Sodium Chloride 0.9% 250 ml @ 0.03 MCG/KG/MIN 6. 221 mls/hr IV .Q24H [facility] Rx#:[id number] Vasopressin 20 unit In 39.78 54.774 Sodium Chloride 0.9% 50 ml @ 0.03 UNITS/MIN 4.59 mls/hr IV .Q11H7M [facility] Rx# :[id number] propofoL 1,000 mg In 238.593 141.476 Empty Bag 1 bag @ 15 MCG/ KG/MIN 4.899 mls/hr IV . [id number] [facility] Rx#:[id number] Tube Feeding 100 160 60 Other 30 30 30 Output: Drainage 1800 Abdomen 1800 Urine 175 680 45 Other: Voiding Method Indwelling Catheter Indwelling Catheter ABP, PAP, CO, CI - Last Documented Arterial Blood Pressure 115/56 - Exam PHYSICAL EXAMINATION: Patient is intubated and on mechanical ventilator. Sedated. HEENT: Normocephalic. Neck is supple. Pupils reactive. Nostrils clear. Oral cavity is moist. Neck reveals no JVD, carotid bruits, or thyromegaly. CHEST EXAMINATION: Trachea is central. Symmetrical expansion. Bibasilar crackles and diminished sounds. CARDIAC: Normal S1, S2 with no gallops. No murmurs ABDOMEN: Soft. Bowel sounds present. Abdomen is distended with ascites. Nontender. No organomegaly. No abdominal bruits. Extremities: Bilateral lower extremity trace edema. No clubbing or cyanosis Neurologically patient is sedated and intubated.. No gross focal deficits noted Skin: No rash or skin lesions. Psychiatric: Could not be assessed at this time. Musculoskeletal: No joint swelling or deformity. - Labs CBC & Chem 7: 10/13/23 04:30 10/13/23 04:30 Labs: Abnormal Lab Results - Last 24 Hours (Table) 10/12/23 10/12/23 10/12/23 Range/Units 00:09 04:05 04:35 WBC (3.8-10.6) k/uL RBC (3.80-5.40) m/uL Hgb (11.4-16.0) gm/dL Hct (34.0-46.0) % MCV (80.0-100.0) fL RDW (11.5-15.5) % Plt Count (150-450) k/uL Neutrophils # (1.3-7.7) k/uL Lymphocytes # (1.0-4.8) k/uL Macrocytosis ABG Total CO2 26 H (19-24) mmol/L ABG O2 Saturation 97.2 H (94-97) % Chloride (98-107) mmol/L Carbon Dioxide (22-30) mmol/L BUN (7-17) mg/dL Creatinine (0.52-1.04) mg/dL Glucose (74-99) mg/dL POC Glucose (mg/dL) 347 H 347 H (70-110) mg/dL Calcium (8.4-10.2) mg/dL 10/12/23 10/12/23 10/12/23 Range/Units 05:09 05:09 06:17 WBC 24.6 H (3.8-10.6) k/uL RBC 2.79 L (3.80-5.40) m/uL Hgb 9.1 L (11.4-16.0) gm/dL Hct 29.4 L (34.0-46.0) % MCV 105.4 H (80.0-100.0) fL RDW 22.4 H (11.5-15.5) % Plt Count 144 L (150-450) k/uL Neutrophils # 23.3 H (1.3-7.7) k/uL Lymphocytes # 0.6 L (1.0-4.8) k/uL Macrocytosis Marked A ABG Total CO2 (19-24) mmol/L ABG O2 Saturation (94-97) % Chloride 108 H (98-107) mmol/L Carbon Dioxide 21 L (22-30) mmol/L BUN 40 H (7-17) mg/dL Creatinine 1.09 H (0.52-1.04) mg/dL Glucose 312 H (74-99) mg/dL POC Glucose (mg/dL) 330 H (70-110) mg/dL Calcium 7.9 L (8.4-10.2) mg/dL 10/12/23 10/12/23 10/12/23 Range/Units 08:41 11:33 16:04 WBC (3.8-10.6) k/uL RBC (3.80-5.40) m/uL Hgb (11.4-16.0) gm/dL Hct (34.0-46.0) % MCV (80.0-100.0) fL RDW (11.5-15.5) % Plt Count (150-450) k/uL Neutrophils # (1.3-7.7) k/uL Lymphocytes # (1.0-4.8) k/uL Macrocytosis ABG Total CO2 (19-24) mmol/L ABG O2 Saturation (94-97) % Chloride (98-107) mmol/L Carbon Dioxide (22-30) mmol/L BUN (7-17) mg/dL Creatinine (0.52-1.04) mg/dL Glucose (74-99) mg/dL POC Glucose (mg/dL) 346 H 318 H 180 H (70-110) mg/dL Calcium (8.4-10.2) mg/dL 10/12/23 Range/Units 21:53 WBC (3.8-10.6) k/uL RBC (3.80-5.40) m/uL Hgb (11.4-16.0) gm/dL Hct (34.0-46.0) % MCV (80.0-100.0) fL RDW (11.5-15.5) % Plt Count (150-450) k/uL Neutrophils # (1.3-7.7) k/uL Lymphocytes # (1.0-4.8) k/uL Macrocytosis ABG Total CO2 (19-24) mmol/L ABG O2 Saturation (94-97) % Chloride (98-107) mmol/L Carbon Dioxide (22-30) mmol/L BUN (7-17) mg/dL Creatinine (0.52-1.04) mg/dL Glucose (74-99) mg/dL POC Glucose (mg/dL) 135 H (70-110) mg/dL Calcium (8.4-10.2) mg/dL Microbiology - Last 24 Hours (Table) 10/09/23 00:15 Blood Culture - Preliminary Blood Assessment and Plan Assessment: Acute hypoxic respiratory failure secondary to multifocal pneumonia and pulmonary edema. Patient is 8 L high flow oxygen--> intubated on mechanical ventilator. Pulmonary edema likely due to cardiogenic with low ejection fraction 30 to 35%. Multifocal pneumonia Sepsis/septic shock secondary to above. Requiring pressor support Acute HFrEF with ejection fraction 30 -45% COPD with acute exacerbation Lactic acidosis 7.0 on admission Alcoholic liver cirrhosis Ascites Hepatic steatosis and hyperbilirubinemia and elevated liver enzymes History of severe alcohol abuse. Quit 5 years ago History of chronic pancreatitis Anxiety/depression DVT prophylaxis with Lovenox subcu GI prophylaxis Plan: Patient is on mechanical ventilator. Continued on antibiotics in the form of Zosyn. Patient will be continued on IV hydration with normal saline. Continued on pressor support. Interventional radiology consulted for paracentesis and fluid analysis including culture. Patient is scheduled to go for paracentesis today. Follow-up urine output and renal function. Patient was given a dose of IV Lasix today. Cardiology and critical care team is on board. Prognosis is guarded. Time with Patient: Greater than 30
--- NOTE | 2023-10-14 00:42 | P.PN ---
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 Patient states that she has been having shortness of breath for the past week and a half and did get worse in the last few days. Patient tried using her breathing treatments at home but did not get improvement. Patient was recently given antibiotics and prednisone by her physician. She has been increasingly weak and not feeling well. Patient presented to ER for evaluation. He was also complaining of cough without any sputum production. Also complaining of chest tightness and anxiety. Denies any leg swelling. No nausea or vomiting. Patient is also having increased abdominal girth. No prior history of paracentesis as per patient. Denies any fever at home. On admission patient was tachycardic and tachypneic and pulse ox 80% on room air. Currently requiring 8 L of oxygen via nasal cannula. CT of the abdomen pelvis showed patchy bilateral airspace consolidation consistent with multilobar pneumonia. Hepatic steatosis, abdominal ascites. Wall thickening of small bowel correlate for mild enteritis versus spontaneous bacterial peritonitis. CTA chest showed no PE. Patchy bilateral airspace consolidation consistent with multilobar pneumonia. Chest x-ray showed similar multifocal airspace opacities. Laboratory data showed WBC 16.5 hemoglobin 10.0 MCV 102.4 and platelets 188 and neutrophils 14.4 INR 1.7, D-dimer 2.8 Sodium 132 potassium 3.7 chloride 95 bicarbonate 24 BUN 18 and creatinine 0.84 and blood sugar 270 and lactic acid 7.0 on admission, calcium 8.1, total bilirubin level is 4.6 AST 113 ALT 68 and alk phos 208 Troponin 0.012 and proBNP 2040 and albumin 3.0 Influenza A, B, RSV and COVID-19 PCR not detected. 10/10/2023 Patient was transferred to MICU. Overnight patient's respiratory status worsened due to multifocal pneumonia and also patient is receiving fluids at 100 cc/h due to sepsis. Patient was intubated and is on assist-control. Patient is currently requiring pressor support. Chest x-ray this morning showed severe bilateral pulmonary infiltration which has worsened. Was given IV Lasix. 2D echocardiogram showed dilated LV and severe LV systolic dysfunction. Eje ction fraction 30 to 35%. Laboratory showed WBC worsened to 26.6 hemoglobin 10.3 and platelets 190 Sodium 139 potassium 3.6 chloride 108 bicarb is 20 BUN 15 and creatinine 0.64 blood sugar 206 and A1c 6.8 lactic acid 5.4 this morning. Liver enzymes are elevated. Cardiology and pulmonary is on board. Patient is being continued on antibiotics changed to Zosyn. Procalcitonin level is elevated at 0.61. 10/11/2023 Patient is in the MICU. Intubated and sedated. On mechanical ventilator. Patient is also requiring pressor support with Levophed and also on dobutamine drip. Urine output remains low. Patient has been afebrile. Nutrition via NG tube. Patient was also started on IV hydration with normal saline at 75 cc/h. Chest x-ray showed multifocal airspace opacities are not significantly changed. Support tubes and proper positioning. Patient remains on antibiotics in the form of Zosyn. 2D echocardiogram showed left ventricular ejection fraction 30 to 35%. Mild right ventricular dilatation. Trace pericardial effusion and pleural effusion was identified. Laboratory data showed WBC 24.9 hemoglobin 9.6 and platelets 187 Sodium 137 potassium 4.2 chloride 102 bicarb is 26 BUN 25 and creatinine 1.1 and blood sugar 264. Patient is scheduled for paracentesis tomorrow. Blood cultures negative so far. Cardiology and pulmonary is on board. 10/12/2023 Patient is in the MICU. Remains intubated and sedated. On assist-control with respiratory of 20 tidal volume 350 and FiO2 40% and PEEP of 10. Continue to be on vasopressin and norepinephrine. Patient was also started on IV hydration with normal saline at 75 cc/h. Urine output is marginal. Patient remains on antibiotics Zosyn. Repeat chest x-ray this morning showed similar multifocal airspace opacities. Patient was given a dose of IV Lasix. Stable support tubes. Laboratory data showed WBC 24.6 hemoglobin 9.1 and platelets 144 BUN 40 and creatinine 1.09 and blood sugar is elevated at 312. Levemir dose increased to 12 units twice daily and continue with insulin sliding scale. Cardiology and critical care team is on board.Patient is scheduled to go for paracentesis today. 10/13/2023 Patient remains in the MICU. On assist-control with FiO2 35% and PEEP of 10. Tidal volume 350. Currently sedation is off. Chest x-ray showed stable exam mild pulmonary edema. Patient underwent ultrasound-guided paracentesis with 1800 cc clear straw- colored fluid drained. Pathology and culture is pending. Laboratory data showed WBC 25.4 hemoglobin 8.7 and platelets 127 BUN 49 creatinine 1.03 potassium 4.2 and blood sugar 159. Patient is being current on IV Solu-Medrol 60 mg every 6 hourly and is also on antibiotics, Zosyn. Current medications reviewed. Objective - Vital Signs Vital signs: Vital Signs Temp 98.8 F 10/13/23 08:00 Pulse 96 10/13/23 13:00 Resp 20 10/13/23 13:00 BP 116/80 10/13/23 12:00 Pulse Ox 99 10/13/23 13:00 FiO2 40 10/13/23 11:59 Intake & Output 10/12/23 10/13/23 10/13/23 18:59 06:59 18:59 Intake Total 8678.391 3229.624 2386.635 Output Total 2480 335 160 Balance -9124.161 2493.624 2226.635 Weight 78 kg 78 kg Intake: IV 447 978 6098 .9 pressure bag 51 60 42 Piperacillin-Tazobactam 3 100 100 100 .375 gm In Sodium Chloride 0.9% 100 ml @ 25 mls/hr IVPB Q8HR [facility] Rx# :[id number] Sodium Chloride 0.9% 1, 825 825 525 000 ml @ 75 mls/hr IV . [id number] [facility] Rx#:[id number] Sodium Chloride 0.9% 500 1500 ml 500 ml @ 999 mls/hr IV .Q31M [facility] Rx#:[id number] Intake, IV Titration 223.830 184.624 84.635 Amount Norepinephrine 4 mg In 27.58 27.860 Sodium Chloride 0.9% 250 ml @ 0.03 MCG/KG/MIN 6. 221 mls/hr IV .Q24H [facility] Rx#:[id number] Vasopressin 20 unit In 54.774 56.764 15.504 Sodium Chloride 0.9% 50 ml @ 0.03 UNITS/MIN 4.59 mls/hr IV .[id number] [facility] Rx# :[id number] propofoL 1,000 mg In 141.476 100 69.131 Empty Bag 1 bag @ 15 MCG/ KG/MIN 4.899 mls/hr IV . [id number] [facility] Rx#:[id number] Tube Feeding 160 370 105 Other 30 90 30 Output: Drainage 1800 Abdomen 1800 Urine 680 335 160 Other: Voiding Method Indwelling Catheter Indwelling Catheter ABP, PAP, CO, CI - Last Documented Arterial Blood Pressure 114/56 - Exam PHYSICAL EXAMINATION: Patient is intubated and on mechanical ventilator. Sedated. HEENT: Normocephalic. Neck is supple. Pupils reactive. Nostrils clear. Oral cavity is moist. Neck reveals no JVD, carotid bruits, or thyromegaly. CHEST EXAMINATION: Trachea is central. Symmetrical expansion. Bibasilar crackles and diminished sounds. CARDIAC: Normal S1, S2 with no gallops. No murmurs ABDOMEN: Soft. Bowel sounds present. Abdomen is distended with ascites. Nontender. No organomegaly. No abdominal bruits. Extremities: Bilateral lower extremity trace edema. No clubbing or cyanosis Neurologically patient is sedated and intubated.. No gross focal deficits noted Skin: No rash or skin lesions. Psychiatric: Could not be assessed at this time. Musculoskeletal: No joint swelling or deformity. - Labs CBC & Chem 7: 10/13/23 04:30 10/13/23 04:30 Labs: Abnormal Lab Results - Last 24 Hours (Table) 10/12/23 10/12/23 10/12/23 Range/Units 16:04 21:53 23:44 WBC (3.8-10.6) k/uL RBC (3.80-5.40) m/uL Hgb (11.4-16.0) gm/dL Hct (34.0-46.0) % MCV (80.0-100.0) fL MCHC (31.0-37.0) g/dL RDW (11.5-15.5) % Plt Count (150-450) k/uL Neutrophils # (1.3-7.7) k/uL Lymphocytes # (1.0-4.8) k/uL Macrocytosis ABG pO2 (83-108) mmHg ABG HCO3 (21-25) mmol/L ABG Total CO2 (19-24) mmol/L ABG O2 Saturation (94-97) % Chloride (98-107) mmol/L BUN (7-17) mg/dL Glucose (74-99) mg/dL POC Glucose (mg/dL) 180 H 135 H 167 H (70-110) mg/dL Calcium (8.4-10.2) mg/dL 10/13/23 10/13/23 10/13/23 Range/Units 04:30 04:30 04:33 WBC 25.4 H (3.8-10.6) k/uL RBC 2.69 L (3.80-5.40) m/uL Hgb 8.7 L (11.4-16.0) gm/dL Hct 28.0 L (34.0-46.0) % MCV 103.9 H (80.0-100.0) fL MCHC 30.9 L (31.0-37.0) g/dL RDW 22.0 H (11.5-15.5) % Plt Count 127 L (150-450) k/uL Neutrophils # 24.0 H (1.3-7.7) k/uL Lymphocytes # 0.5 L (1.0-4.8) k/uL Macrocytosis Marked A ABG pO2 (83-108) mmHg ABG HCO3 (21-25) mmol/L ABG Total CO2 (19-24) mmol/L ABG O2 Saturation (94-97) % Chloride 111 H (98-107) mmol/L BUN 49 H (7-17) mg/dL Glucose 159 H (74-99) mg/dL POC Glucose (mg/dL) 178 H (70-110) mg/dL Calcium 8.0 L (8.4-10.2) mg/dL 10/13/23 10/13/23 10/13/23 Range/Units 05:28 08:25 11:51 WBC (3.8-10.6) k/uL RBC (3.80-5.40) m/uL Hgb (11.4-16.0) gm/dL Hct (34.0-46.0) % MCV (80.0-100.0) fL MCHC (31.0-37.0) g/dL RDW (11.5-15.5) % Plt Count (150-450) k/uL Neutrophils # (1.3-7.7) k/uL Lymphocytes # (1.0-4.8) k/uL Macrocytosis ABG pO2 148 H (83-108) mmHg ABG HCO3 26 H (21-25) mmol/L ABG Total CO2 28 H (19-24) mmol/L ABG O2 Saturation 99.5 H (94-97) % Chloride (98-107) mmol/L BUN (7-17) mg/dL Glucose (74-99) mg/dL POC Glucose (mg/dL) 195 H 208 H (70-110) mg/dL Calcium (8.4-10.2) mg/dL Microbiology - Last 24 Hours (Table) 10/12/23 09:05 Gram Stain - Preliminary Sputum Sputum Culture - Preliminary Marleni albicans 10/12/23 10:07 Gram Stain - Preliminary Ascites Fluid Body Fluid Culture - Preliminary 10/09/23 00:15 Blood Culture - Preliminary Blood Assessment and Plan Assessment: Acute hypoxic respiratory failure secondary to multifocal pneumonia and pulmonary edema. Patient is 8 L high flow oxygen--> intubated on mechanical ventilator. Pulmonary edema likely due to cardiogenic with low ejection fraction 30 to 35%. Multifocal pneumonia Sepsis/septic shock secondary to above. off pressor support Acute HFrEF with ejection fraction 30 -45% COPD with acute exacerbation Lactic acidosis 7.0 on admission Alcoholic liver cirrhosis Ascites Patient is status post paracentesis on 10/13/2023. Hepatic steatosis and hyperbilirubinemia and elevated liver enzymes History of severe alcohol abuse. Quit 5 years ago History of chronic pancreatitis Anxiety/depression DVT prophylaxis with Lovenox subcu GI prophylaxis Plan: Patient is on mechanical ventilator. off seadtion. Continued on antibiotics in the form of Zosyn. on IV Solu-Medrol and DuoNebs as needed. Patient is off pressor support. Sedation is off and pulmonary is planning for extubation. Patient is status post paracentesis on 10/13/2023.. Follow-up urine output and renal function. Cardiology and critical care team is on board.Discussed with her mother at bedside in detail. Prognosis is guarded. Time with Patient: Greater than 30
[2023-10-14 03:54] LABS: Glucose,Whole Blood 168 mg/dL (70-110)
[2023-10-14 04:05] LABS: Anisocytosis Moderate; HCT 27.9 % (34.0-46.0); HGB 8.6 gm/dL (11.4-16.0); Hypochromasia Marked; MCH 32.5 pg (25.0-35.0); MCHC 30.9 g/dL (31.0-37.0); MCV 105.2 fL (80.0-100.0); Macrocytosis Marked; Mean Platelet Volume 9.4; Platelet Count 103 k/uL (150-450); RBC 2.65 m/uL (3.80-5.40); RDW 21.9 % (11.5-15.5); WBC 22.4 k/uL (3.8-10.6)
[2023-10-14 04:17] LABS: African American GFR (CKD) >90 (>60 ml/min/1.73 sqM); Anion Gap 4 mmol/L; Blood Urea Nitrogen 43 mg/dL (7-17); Calcium 8.1 mg/dL (8.4-10.2); Carbon Dioxide 22 mmol/L (22-30); Chloride 117 mmol/L (98-107); Glucose 159 mg/dL (74-99); Non-African American GFR(CKD) 86 (>60 ml/min/1.73 sqM); Potassium 3.8 mmol/L (3.5-5.1); Sodium 143 mmol/L (137-145)
[2023-10-14] MEDS: POTASSIUM BICARBONATE/CIT AC 20 MEQ TABLET.EFF NG-TUBE SCH (04:51)
[2023-10-14 06:42] LABS: ABG Base Excess -0.2 mmol/L; ABG HCO3 24 mmol/L (21-25); ABG PCO2 35 mmHg (35-45); ABG PH 7.45 (7.35-7.45); ABG PO2 91 mmHg (83-108); ABG TCO2 25 mmol/L (19-24); Allen Test Performed? Yes
[2023-10-14] MEDS: FUROSEMIDE 10 MG/ML 4 ML VIAL IV STA (07:46)
[2023-10-14 08:01] LABS: Glucose,Whole Blood 157 mg/dL (70-110)
--- NOTE | 2023-10-14 08:55 | XR ---
EXAMINATION TYPE: XR chest 1V portable DATE OF EXAM: 10/14/2023 COMPARISON: 10/13/2023 INDICATION: Difficulty breathing TECHNIQUE: Single frontal view of the chest is obtained. FINDINGS: The heart size is normal. The pulmonary vasculature is somewhat prominent. No suspicious focal consolidation. Endotracheal tube tip is above the jan. Nasogastric tube tip is in the abdomen IMPRESSION: 1. Mild vascular prominence. 2. Lines and catheters discussed above
--- NOTE | 2023-10-14 09:31 | PN ---
PROGRESS NOTE SUBJECTIVE: This is a 48-year-old patient with history of cirrhosis, ascites, hypotension. Cardiology had been consulted because of cardiomyopathy and congestive heart failure. The patient is primarily admitted to hospital with acute respiratory failure related to bilateral pneumonia. The patient is intubated and is currently being mechanically ventilated. Clinically, her primary problem is her respiratory failure. OBJECTIVE: VITAL SIGNS: Heart rate is 90 beats, blood pressure is 140/72, respiratory rate is 18, intubated on vent, O2 saturation is 98%. CHEST: Reveals diminished air entry at the bases. HEART: Reveals first and second heart sounds. No gallop. EXTREMITIES: Reveals bilateral 2+ pitting edema. LABS: Show a white cell count of 22, potassium is 3.8, creatinine is 0.8. ASSESSMENT: 1. Respiratory failure. 2. Cardiomyopathy. 3. Hypotension, requiring pressors. PLAN: Will continue the patient on current medications. MMODL / IJN: [id number] /
[2023-10-14 11:07] LABS: Glucose,Whole Blood 197 mg/dL (70-110)
[2023-10-14 12:42] LABS: Glucose,Whole Blood 163 mg/dL (70-110)
--- NOTE | 2023-10-14 13:37 | P.PN ---
Subjective Progress Note Date: 10/14/23 Principal diagnosis: Acute hypoxic respiratory failure secondary to pneumonia, sepsis, and acute pulmonary edema/systolic congestive heart failure This is a pleasant 48-year-old female patient with a known history of alcoholism with subsequent cirrhosis and chronic pancreatitis. Quit drinking approximately 5 years ago. She does have chronic and ongoing tobacco dependence, a nxiety/depression, gastroesophageal reflux disease. She has a 2 week history of initially a dry nonproductive cough that had progressed into a loose congested cough with shortness of breath. She presented here to the emergency room yesterday. DT scan of the abdomen and pelvis revealed patchy bilateral airspace consolidation consistent with multifocal lobar pneumonia. Hepatic steatosis. Abdominal ascites. Wall thickening of the small bowel, correlate for mild enteritis versus spontaneous bacterial peritonitis. CT angiogram ruled out pulmonary embolism. There is again noted patchy bilateral airspace consolidation consistent with multilobar pneumonia. Chest x-ray shows similar multifocal airspace opacities. Count 16.5. Hemoglobin 10.0. Platelets 188. INR 1.7. D-dimer 2.80. Sodium 132. Potassium 3.7. Bicarb 24. BUN 18. Creatinine 0.84. Glucose 270. Initial lactic acid 7.0. Currently 2.2. AST 113. ALT 68. Alk phos 208. ProBNP 2040. Lipase 49. Serum alcohol less than 10. Viral screen negative. She is seen today in consultation in the emergency department. She is currently resting on a stretcher. She is awake and alert. She is requiring 10 L high flow nasal cannula to maintain O2 saturations in the 90s. She drops into the 70s on room air. She was initiated on ceftriaxone and azithromycin azithromycin. NicoDerm patch in place. She received 3 L of fluid resuscitation. Normal saline at 100 ML's per hour. Patient with very today on 10/10/2023, I saw this patient yesterday on consultation, and recommended transferring the patient to the ICU after she was seen in the ER. Apparently the patient was transferred to the ICU, and early this morning her pulmonary status continued to deteriorate, patient developed worsening pulmonary edema with underlying pneumonia, patient did receive significant amount of fluids for her sepsis presentation, and she developed pulmonary edema in addition to her underlying pneumonia. She is now on assist- control rate of 20 tidal volume 350 FiO2 100% and PEEP of 10. ABG this morning showed a pO2 of 80 pCO2 43 pH of 7.34. Patient had an echocardiogram showed severe LV dysfunction with ejection fraction of 30%., There was no evidence of valvular heart disease. Considering the findings, Lasix was given at 60 mg IV push every 12 hours, patient remains empirically on Zosyn for pneumonia and for possible abdominal sepsis. She is yet to have paracentesis to rule out acute spontaneous peritonitis in the last 24 hours, patient developed worsening pulmonary edema, and worsening abdominal distention with worsening ascites. WBC count today is 26.6 hemoglobin is 10.3. Basic metabolic profile is relatively n ormal, renal profile is normal. Calcitonin level is 0.61. BNP yesterday was 2039, influenza and Legionella as well as RSV and COVID-19 screening came back all negative Reevaluated today on 10/11/2023, patient remains in the ICU, intubated and mechanically ventilated. Patient is on assist-control rate of 20 tidal volume 350 FiO2 50% PEEP of 12, ABG showed a pO2 of 128 pCO2 43 pH of 7.41, hence I dropped the PEEP down to 10 and FiO2 down to 45%. Chest x-ray is showing improvement in her pneumonia and improvement in her pulmonary edema. Urine output remains marginal at 25 to 30 cc/h, blood pressure remains marginal in spite of being on dobutamine remain at 2.5 mcg/kg/min norepinephrine at 0.15 mcg/kg/min propofol 40 mcg/kg/min, patient is also on IV fluids at KVO which I have increased today to 75 cc/h and patient remains on Zosyn empirically for pneumonia, and for possible peritonitis. Interventional radiology is delaying and not planning to do paracentesis at this point mostly because of patient's blood pressure is marginal. I will recommend vasopressin on this patient, and will likely discontinue dobutamine on this patient. I have discontinued her Lasix, and started IV fluid at 0.9 normal saline 75 cc/h will initiate nutritional support/vital HP today. Patient remains critically ill, but nonetheless she is improving, updated her family/father and mother at bedside on her condition. WBC count is 24.9 hemoglobin 9.6. WBC count is improving compared to yesterday basic metabolic profile is normal renal profile showed a BUN of 25 creatinine 1.10 slightly worse compared to admission creatinine of 0.64, and that is not surprising Patient was reevaluated today on 10/12/2023, remains in the ICU, intubated and mechanically ventilated, patient is on assist-control rate of 20 tidal volume 350 FiO2 45% PEEP of 10 ABG showed a pO2 of 88 pCO2 37 pH of 7.44. Urine output is marginal roughly 10 to 15 cc/h, hence I recommended a dose of Lasix to be given 40 mg IV push, will hold on fluid boluses since her chest x-ray is showing worsening interstitial edema, slightly worse compared to the chest x-ray she had yesterday. However the patient is now on lesser PEEP and she is on lesser FiO2. Scheduled to have paracentesis today. Patient is on vasopressin at 0.03, she i s also on norepinephrine at 0.03 mcg/kg/min IV fluid at 75 cc/h in the form of 0.9 normal saline. Cultures of the blood remain negative, cultures from the peritoneal fluid will be pending once the patient undergoes paracentesis. Patient remains on Zosyn WBC count today is 24.6, improving hemoglobin is 9.1 basic metabolic profile is normal BUN is 40 creatinine 1.09, again her blood cultures are negative so far, Patient was noted today on 10/13/2023, remains in the ICU, intubated and mechanically ventilated. She is now on assist-control rate of 20 tidal volume 350 FiO2 35% PEEP is 10 ABG showed a pO2 of 148 pCO2 39 pH of 7.43 has significant improvement noted in her ABG and it is correlated with the improvement noted on the chest x-ray. I cut down the PEEP down to 5 and FiO2 was made 40%. Patient remains on vasopressin but she is off norepinephrine or vasopressin at 0.02 units/min, she is on propofol at 30 mcg/kg/min IV fluid remains at 75 cc/h vital HP at 35 cc/h. Her urine output has been marginal, fluid boluses were given about 1 L, if no improvement may at that point consider diuresing the patient. Remains on Zosyn empirically, cultures remain negative. Negative cultures also on the peritoneal fluid so far negative blood cultures WBC count is down to 25.4 hemoglobin 8.7, platelets are 1 27,000 basic metabolic profile is normal renal profile is acceptable with a BUN of 49 creat 1.03. Blood sugar a bit elevated at 178 chest x-ray continues to show improvement with mild interstitial edema/infiltrates Reevaluate today on 10/14/2023, remains in the ICU intubated and mechanically ventilated, patient is on assist-control rate of 20 tidal volume 350 FiO2 40% PEEP is 5 ABG showed a pO2 of 91 pCO2 35 pH of 7.45, hence no changes were made in her ventilator settings. Patient is now completely off pressors, off norepinephrine and off vasopressin, maintained on relatively low-dose of propofol at 20 mcg/kg/min, her IV fluid is running at 75 cc/h, chest x-ray showed mild interstitial edema/infiltrates, given Lasix and she put out 300 cc of urine almost within a short.. Of time after Lasix was given. Patient is having issues with residual from enteral feeding and I will hold the feeding for now temporarily. Remains on Zosyn, her endotracheal tube seems to be sitting high in the trachea and it will be advanced down about 2 cm. Chest x-ray again was reviewed and suggestive of mild interstitial edema. Ammonia level was checked because of her mental status and it seems to be normal her WBC count is coming down to 22.4 hemoglobin is 8.6. Basic metabolic profile is normal renal profile is normal and sugar is 163 sputum is positive for Marleni albicans, ho wever this has no clinical significance at this point t Objective - Vital Signs Vital signs: Vital Signs Temp 98.8 F 10/14/23 12:00 Pulse 100 10/14/23 13:00 Resp 23 10/14/23 13:00 BP 110/71 10/14/23 12:00 Pulse Ox 96 10/14/23 13:00 FiO2 40 10/14/23 13:22 Intake & Output 10/13/23 10/14/23 10/14/23 18:59 06:59 18:59 Intake Total 2891.635 1529.319 760.060 Output Total 288 189 1055 Balance 2586.635 1084.319 -649.940 Weight 78 kg 79.2 kg Intake: IV 2672 997 667 .9 pressure bag 72 72 42 Piperacillin-Tazobactam 3 200 100 100 .375 gm In Sodium Chloride 0.9% 100 ml @ 25 mls/hr IVPB Q8HR [facility] Rx# :[id number] Sodium Chloride 0.9% 1, 900 825 525 000 ml @ 75 mls/hr IV . [id number] [facility] Rx#:[id number] Sodium Chloride 0.9% 500 1500 ml 500 ml @ 999 mls/hr IV .Q31M [facility] Rx#:[id number] Intake, IV Titration 84.635 92.319 28.060 Amount Vasopressin 20 unit In 15.504 Sodium Chloride 0.9% 50 ml @ 0.03 UNITS/MIN 4.59 mls/hr IV .[id number] [facility] Rx# :[id number] propofoL 1,000 mg In 69.131 92.319 28.060 Empty Bag 1 bag @ 15 MCG/ KG/MIN 4.899 mls/hr IV . [id number] [facility] Rx#:[id number] Tube Feeding 105 350 35 Other 30 90 30 Output: Urine 744 120 3905 Other: Voiding Method Indwelling Catheter Indwelling Catheter # Bowel Movements 1 ABP, PAP, CO, CI - Last Documented Arterial Blood Pressure 123/60 - Exam GENERAL EXAM: Reveals a 48-year-old female intubated mechanically ventilated sed ated, on propofol, off pressors HEAD: Normocephalic. EYES: Normal reaction of pupils, equal size. NOSE: Clear with pink turbinates. THROAT: No erythema or exudates. Endotracheal tube and orogastric tubes are intact. NECK: No masses, no JVD. CHEST: No chest wall deformity. Symmetrical chest expansion LUNGS: Diminished breath sounds at the bases no crackles rhonchi or wheezes CVS: S1 and S2 normal with no audible murmur, regular rhythm. ABDOMEN: Abdominal distention, negative bowel sounds, no guarding or rigidity. SKIN: No rashes CENTRAL NERVOUS SYSTEM: On propofol could not assess, Psychiatric: Could not assess patient is sedated EXTREMITIES: No clubbing, trace of bipedal edema, no cyanosis - Labs CBC & Chem 7: 10/14/23 03:55 10/14/23 03:55 Labs: Abnormal Lab Results - Last 24 Hours (Table) 10/13/23 10/13/23 10/13/23 Range/Units 16:44 19:36 23:13 WBC (3.8-10.6) k/uL RBC (3.80-5.40) m/uL Hgb (11.4-16.0) gm/dL Hct (34.0-46.0) % MCV (80.0-100.0) fL MCHC (31.0-37.0) g/dL RDW (11.5-15.5) % Plt Count (150-450) k/uL Macrocytosis ABG Total CO2 (19-24) mmol/L ABG O2 Saturation (94-97) % Chloride (98-107) mmol/L BUN (7-17) mg/dL Glucose (74-99) mg/dL POC Glucose (mg/dL) 119 H 139 H 145 H (70-110) mg/dL Calcium (8.4-10.2) mg/dL 10/14/23 10/14/23 10/14/23 Range/Units 03:52 03:55 03:55 WBC 22.4 H (3.8-10.6) k/uL RBC 2.65 L (3.80-5.40) m/uL Hgb 8.6 L (11.4-16.0) gm/dL Hct 27.9 L (34.0-46.0) % MCV 105.2 H (80.0-100.0) fL MCHC 30.9 L (31.0-37.0) g/dL RDW 21.9 H (11.5-15.5) % Plt Count 103 L (150-450) k/uL Macrocytosis Marked A ABG Total CO2 (19-24) mmol/L ABG O2 Saturation (94-97) % Chloride 117 H (98-107) mmol/L BUN 43 H (7-17) mg/dL Glucose 159 H (74-99) mg/dL POC Glucose (mg/dL) 168 H (70-110) mg/dL Calcium 8.1 L (8.4-10.2) mg/dL 10/14/23 10/14/23 10/14/23 Range/Units 06:40 08:00 11:06 WBC (3.8-10.6) k/uL RBC (3.80-5.40) m/uL Hgb (11.4-16.0) gm/dL Hct (34.0-46.0) % MCV (80.0-100.0) fL MCHC (31.0-37.0) g/dL RDW (11.5-15.5) % Plt Count (150-450) k/uL Macrocytosis ABG Total CO2 25 H (19-24) mmol/L ABG O2 Saturation 98.0 H (94-97) % Chloride (98-107) mmol/L BUN (7-17) mg/dL Glucose (74-99) mg/dL POC Glucose (mg/dL) 157 H 197 H (70-110) mg/dL Calcium (8.4-10.2) mg/dL 10/14/23 Range/Units 12:41 WBC (3.8-10.6) k/uL RBC (3.80-5.40) m/uL Hgb (11.4-16.0) gm/dL Hct (34.0-46.0) % MCV (80.0-100.0) fL MCHC (31.0-37.0) g/dL RDW (11.5-15.5) % Plt Count (150-450) k/uL Macrocytosis ABG Total CO2 (19-24) mmol/L ABG O2 Saturation (94-97) % Chloride (98-107) mmol/L BUN (7-17) mg/dL Glucose (74-99) mg/dL POC Glucose (mg/dL) 163 H (70-110) mg/dL Calcium (8.4-10.2) mg/dL Microbiology - Last 24 Hours (Table) 10/09/23 00:15 Blood Culture - Final Blood 10/12/23 10:07 Gram Stain - Preliminary Ascites Fluid Body Fluid Culture - Preliminary 10/12/23 09:05 Gram Stain - Final Sputum Sputum Culture - Final Marleni albicans Assessment and Plan Assessment: Impression: Acute hypoxic respiratory failure secondary to bilateral multilobar pneumonia and superimposed congestive heart failure/systolic in nature. Requiring intubation and mechanical ventilation on 10/10/23 Acute pulmonary edema, cardiogenic in nature, although the possibility of noncardiogenic pulmonary edema is not entirely ruled out but felt to be less likely considering the patient's ejection fraction is only 20% and she received significant amount of fluids upon her initial presentation to the ER Ascites, status post paracentesis, cultures negative on peritoneal fluid so far, Gram stain is negative so far. History of liver cirrhosis related to alcohol abuse, quit drinking over 5 years ago. History of chronic pancreatitis History of anxiety/depression Tobacco dependence syndrome Recommendation: Continue ventilatory support, Continue antibiotics//Zosyn, all cultures have been negative so far. Continue bronchodilators Continue GI and DVT prophylaxis Close monitoring of her electrolytes and renal profile. Continue to monitor strictly I's and O's Nutrition support/enteral feeding, was placed on hold today because of high residuals Will likely transition patient from propofol to Precedex, may give the patient today a weaning trial if we could get her off sedation completely. And if her mental status allows Patient remains critically ill Prognosis is guarded. Will continue to follow Critical care time is over 30. Time with Patient: Greater than 30
[2023-10-14] MEDS: DEXMEDETOMIDINE/0.9% NACL(PMX) 400 MCG in EMPTY BAG 1 BAG IV SCH (13:42)
[2023-10-14 16:06] LABS: Glucose,Whole Blood 81 mg/dL (70-110)
[2023-10-14 19:22] LABS: Glucose,Whole Blood 130 mg/dL (70-110)
--- NOTE | 2023-10-14 20:40 | P.PN ---
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 Patient states that she has been having shortness of breath for the past week and a half and did get worse in the last few days. Patient tried using her breathing treatments at home but did not get improvement. Patient was recently given antibiotics and prednisone by her physician. She has been increasingly weak and not feeling well. Patient presented to ER for evaluation. He was also complaining of cough without any sputum production. Also complaining of chest tightness and anxiety. Denies any leg swelling. No nausea or vomiting. Patient is also having increased abdominal girth. No prior history of paracentesis as per patient. Denies any fever at home. On admission patient was tachycardic and tachypneic and pulse ox 80% on room air. Currently requiring 8 L of oxygen via nasal cannula. CT of the abdomen pelvis showed patchy bilateral airspace consolidation consistent with multilobar pneumonia. Hepatic steatosis, abdominal ascites. Wa ll thickening of small bowel correlate for mild enteritis versus spontaneous bacterial peritonitis. CTA chest showed no PE. Patchy bilateral airspace consolidation consistent with multilobar pneumonia. Chest x-ray showed similar multifocal airspace opacities. Laboratory data showed WBC 16.5 hemoglobin 10.0 MCV 102.4 and platelets 188 and neutrophils 14.4 INR 1.7, D-dimer 2.8 Sodium 132 potassium 3.7 chloride 95 bicarbonate 24 BUN 18 and creatinine 0.84 and blood sugar 270 and lactic acid 7.0 on admission, calcium 8.1, total bilirubin level is 4.6 AST 113 ALT 68 and alk phos 208 Troponin 0.012 and proBNP 2040 and albumin 3.0 Influenza A, B, RSV and COVID-19 PCR not detected. 10/10/2023 Patient was transferred to MICU. Overnight patient's respiratory status worsened due to multifocal pneumonia and also patient is receiving fluids at 100 cc/h due to sepsis. Patient was intubated and is on assist-control. Patient is currently requiring pressor support. Chest x-ray this morning showed severe bilateral pulmonary infiltration which has worsened. Was given IV Lasix. 2D echocardiogram showed dilated LV and severe LV systolic dysfunction. Ejection fraction 30 to 35%. Laboratory showed WBC worsened to 26.6 hemoglobin 10.3 and platelets 190 Sodium 139 potassium 3.6 chloride 108 bicarb is 20 BUN 15 and creatinine 0.64 blood sugar 206 and A1c 6.8 lactic acid 5.4 this morning. Liver enzymes are elevated. Cardiology and pulmonary is on board. Patient is being continued on antibiotics changed to Zosyn. Procalcitonin level is elevated at 0.61. 10/11/2023 Patient is in the MICU. Intubated and sedated. On mechanical ventilator. Patient is also requiring pressor support with Levophed and also on dobutamine drip. Urine output remains low. Patient has been afebrile. Nutrition via NG tube. Patient was also started on IV hydration with normal saline at 75 cc/h. Chest x-ray showed multifocal airspace opacities are not significantly changed. Support tubes and proper positioning. Patient remains on antibiotics in the form of Zosyn. 2D echocardiogram showed left ventricular ejection fraction 30 to 35%. Mild right ventricular dilatation. Trace pericardial effusion and pleural effusion was identified. Laboratory data showed WBC 24.9 hemoglobin 9.6 and platelets 187 Sodium 137 potassium 4.2 chloride 102 bicarb is 26 BUN 25 and creatinine 1.1 and blood sugar 264. Patient is scheduled for paracentesis tomorrow. Blood cultures negative so far. Cardiology and pulmonary is on board. 10/12/2023 Patient is in the MICU. Remains intubated and sedated. On assist-control with respiratory of 20 tidal volume 350 and FiO2 40% and PEEP of 10. Continue to be on vasopressin and norepinephrine. Patient was also started on IV hydration with normal saline at 75 cc/h. Urine output is marginal. Patient remains on antibiotics Zosyn. Repeat chest x-ray this morning showed similar multifocal airspace opacities. Patient was given a dose of IV Lasix. Stable support tubes. Laboratory data showed WBC 24.6 hemoglobin 9.1 and platelets 144 BUN 40 and creatinine 1.09 and blood sugar is elevated at 312. Levemir dose increased to 12 units twice daily and continue with insulin sliding scale. Cardiology and critical care team is on board.Patient is scheduled to go for paracentesis today. 10/13/2023 Patient remains in the MICU. On assist-control with FiO2 35% and PEEP of 10. Tidal volume 350. Currently sedation is off. Chest x-ray showed stable exam mild pulmonary edema. Patient underwent ultrasound-guided paracentesis with 1800 cc clear straw- colored fluid drained. Pathology and culture is pending. Laboratory data showed WBC 25.4 hemoglobin 8.7 and platelets 127 BUN 49 creatinine 1.03 potassium 4.2 and blood sugar 159. Patient is being current on IV Solu-Medrol 60 mg every 6 hourly and is also on antibiotics, Zosyn. I am resuming the care of the patient 10/14/2023 Patient is a pleasant 48 years old female who presents with bilateral pneumonia with acute hypoxic respiratory failure requiring intubation and mechanical ventilation. CTA of the chest was negative for PE which is done secondary to high d-dimer, CT of the abdomen showing thickened small bowel loops suspicious for enteritis, patient currently covered with Zosyn ProBNP is elevated 2039, chest x-ray showing mild was for congestion and ejection fraction is 30-35% patient is receiving IV Lasix and She Is Intubated. She Is Also on Salmeterol 60 Mg for Possible Acute COPD Exacerbation. Patient on Insulin Levemir 12 Units Twice Daily She Has Decompensated Liver Cirrhosis Status Post Paracentesis on 10/12 Where 1800 ML of Fluid Aspirated Patient today undergoing sedation holiday with propofol was off since yesterday Patient got agitated and she was placed on Precedex as well as IV morphine with little help so far Discussed with the bedside nurse Patient could not tolerate CPAP earlier, currently continued on mechanical ventilation with P5 and FiO2 of 40% Family at bedside Active Medications Generic Name Dose Route Start Last Admin Trade Name Freq PRN Reason Stop Dose Admin Albuterol/Ipratropium 3 ml 10/09/23 12:00 10/14/23 15:50 Ipratropium-Albuterol 3 Ml Neb INHALATION 3 ml RT-Q4H ELIESER Administration Budesonide 1 mg 10/09/23 20:00 10/14/23 08:11 Budesonide 1 Mg/2 Ml Nebu INHALATION 1 mg RT-BID ELIESER Administration Chlorhexidine Gluconate 15 ml 10/10/23 09:00 10/14/23 20:00 Chlorhexidine Gluconate 15 Ml Cup MUCOUS MEM 15 ml BID ELIESER Administration Dextrose/Water 25 ml 10/09/23 10:20 Dextrose 50% Syringe 50 Ml IVP PER PROTOCOL PRN Hypoglycemia Protocol Dextrose/Water 50 ml 10/09/23 10:20 Dextrose 50% Syringe 50 Ml IVP PER PROTOCOL PRN Hypoglycemia Protocol Enoxaparin Sodium 40 mg 10/13/23 09:00 10/14/23 08:01 Enoxaparin 40 Mg/0.4 Ml Syringe SQ 40 mg DAILY ELIESER Administration Folic Acid 1 mg 10/09/23 09:00 10/14/23 08:01 Folic Acid 1 Mg Tab PO 1 mg DAILY ELIESER Administration Formoterol Fumarate 20 mcg 10/09/23 20:00 10/14/23 08:11 Formoterol Fumarate 20 Mcg/2 Ml Nebu INHALATION 20 mcg RT-BID ELIESER Administration Sodium Chloride 1,000 mls @ 75 mls/hr 10/09/23 10:30 10/14/23 17:20 Saline 0.9% IV 75 mls/hr .[id number] ELIESER Administration Propofol 1,000 mg/ IV Solution 100 mls @ 4.899 mls/hr 10/10/23 06:00 10/14/23 15:50 IV 25 mcg/kg/min .[id number] ELIESER 8.165 mls/hr Titration Protocol 15 MCG/KG/MIN Norepinephrine Bitartrate 4 mg 254 mls @ 6.221 mls/hr 10/10/23 06:15 10/14/23 17:30 / Sodium Chloride IV 0 mcg/kg/min .Q24H ELIESER 0 mls/hr Titration Protocol 0.03 MCG/KG/MIN Piperacillin Sod/Tazobactam 100 mls @ 25 mls/hr 10/10/23 16:00 10/14/23 16:36 Sod 3.375 gm/ Sodium Chloride IVPB 25 mls/hr Q8HR ELIESER Administration Protocol Vasopressin 20 unit/ Sodium 51 mls @ 4.59 mls/hr 10/11/23 09:30 10/14/23 16: 31 Chloride IV Not Given .Q11H7M ELIESER Protocol 0.03 UNITS/MIN Dexmedetomidine HCl 400 mcg/ 100 mls @ 3.96 mls/hr 10/14/23 13:45 10/14/23 15:17 IV Solution IV 0 mcg/kg/hr .Q24H ELIESER 0 mls/hr Titration Protocol 0.2 MCG/KG/HR Insulin Aspart 0 unit 10/12/23 04:00 10/14/23 19:23 Insulin Aspart (Novolog) 100 Unit/Ml Vial SQ Not Given Q4H ELIESER Protocol Insulin Detemir 12 unit 10/12/23 10:45 10/14/23 20:00 Insulin Detemir (Levemir) 100 Unit/Ml Syr SQ 12 unit BID ELIESER Administration Lorazepam 1 mg 10/08/23 20:24 10/10/23 08:56 Lorazepam 2 Mg/Ml Inj IV 1 mg Q2HR PRN Administration CIWA 8 or 9 Lorazepam 1 mg 10/08/23 20:24 10/10/23 04:45 Lorazepam 2 Mg/Ml Inj IV 1 mg Q1HR PRN Administration CIWA 10 to 15 Methylprednisolone Sodium Succinate 60 mg 10/09/23 12:00 10/14/23 17:20 Methylprednisolone Sod Succi 125 Mg/2 Ml Vial IV 60 mg Q6HR ELIESER Administration Miscellaneous Information 1 each 10/08/23 23:59 Pneumonia Protocol Utilized 1 Each Misc PO ONCE PRN Per Protocol Miscellaneous Information 1 each 10/10/23 07:06 Potassium Replacement Protocol 1 Each Misc MISCELLANE DAILY PRN Per Protocol Protocol Morphine Sulfate 4 mg 10/08/23 23:59 10/14/23 19:40 Morphine Sulfate 4 Mg/Ml Syringe IV 4 mg Q4HR PRN Administration Severe Pain (Scale 7 to 10) Multivitamins 1 each 10/09/23 09:00 10/14/23 08:01 Multivitamins, Thera 1 Each Tab PO 1 each DAILY ELIESER Administration Nicotine 1 patch 10/09/23 01:35 10/14/23 08:01 Nicotine 21mg/24hr Patch TRANSDERM 1 patch DAILY ELIESER Administration Ondansetron HCl 4 mg 10/08/23 23:59 10/09/23 18:29 Ondansetron 4 Mg/2 Ml Vial IVP 4 mg Q8HR PRN Administration Nausea And Vomiting Pantoprazole Sodium 80 mg 10/10/23 09:15 10/14/23 07:54 Pantoprazole 40 Mg/10 Ml Vial IVP 80 mg DAILY ELIESER Administration Paroxetine HCl 40 mg 10/09/23 21:00 10/14/23 20:00 Paroxetine 20 Mg Tab PO 40 mg HS ELIESER Administration Thiamine HCl 100 mg 10/09/23 09:00 10/14/23 08:17 Thiamine 100 Mg Tab PO 100 mg DAILY ELIESER Administration Objective - Vital Signs Vital signs: Vital Signs Temp 98.8 F 10/14/23 12:00 Pulse 90 10/14/23 15:00 Resp 19 10/14/23 15:00 BP 110/71 10/14/23 15:00 Pulse Ox 95 10/14/23 15:00 FiO2 40 10/14/23 13:22 Intake & Output 10/13/23 10/14/23 10/14/23 18:59 06:59 18:59 Intake Total 2891.635 1529.319 775.469 Output Total 434 875 1194 Balance 2586.635 1084.319 -634.531 Weight 78 kg 79.2 kg Intake: IV 2672 997 667 .9 pressure bag 72 72 42 Piperacillin-Tazobactam 3 200 100 100 .375 gm In Sodium Chloride 0.9% 100 ml @ 25 mls/hr IVPB Q8HR ELIESER Rx# :[id number] Sodium Chloride 0.9% 1, 900 825 525 000 ml @ 75 mls/hr IV . [id number] ELIESER Rx#:[id number] Sodium Chloride 0.9% 500 1500 ml 500 ml @ 999 mls/hr IV .Q31M ONE Rx#:[id number] Intake, IV Titration 84.635 92.319 43.469 Amount Dexmedetomidine/0.9% NaCl 11.055 (Pmx) 400 mcg In Empty Bag 1 bag @ 0.2 MCG/KG/HR 3.96 mls/hr IV .Q24H ELIESER Rx#:[id number] Norepinephrine 4 mg In 0 Sodium Chloride 0.9% 250 ml @ 0.03 MCG/KG/MIN 6. 221 mls/hr IV .Q24H ELIESER Rx#:[id number] Vasopressin 20 unit In 15.504 Sodium Chloride 0.9% 50 ml @ 0.03 UNITS/MIN 4.59 mls/hr IV .Q11H7M ELIESER Rx# :[id number] propofoL 1,000 mg In 69.131 92.319 32.414 Empty Bag 1 bag @ 15 MCG/ KG/MIN 4.899 mls/hr IV . [id number] ELIESER Rx#:[id number] Tube Feeding 105 350 35 Other 30 90 30 Output: Urine 212 382 2979 Other: Voiding Method Indwelling Catheter Indwelling Catheter # Bowel Movements 1 ABP, PAP, CO, CI - Last Documented Arterial Blood Pressure 91/45 - Exam -GENERAL: The patient is intubated HEENT: Pupils are round and equally reacting to light. EOMI. No scleral icterus. No conjunctival pallor. Normocephalic, atraumatic. No pharyngeal erythema. No thyromegaly. CARDIOVASCULAR: S1 and S2 present. No murmurs, rubs, or gallops. PULMONARY: Chest is clear to auscultation, no wheezing , no crackles. ABDOMEN: Soft, nontender, nondistended, normoactive bowel sounds. No palpable organomegaly. MUSCULOSKELETAL: No joint swelling or deformity. EXTREMITIES: No cyanosis, clubbing, or pedal edema. NEUROLOGICAL: Gross neurological examination did not reveal any focal deficits. SKIN: No rashes. no petechiae. - Labs CBC & Chem 7: 10/14/23 03:55 10/14/23 03:55 Labs: Abnormal Lab Results - Last 24 Hours (Table) 10/13/23 10/13/23 10/13/23 Range/Units 16:44 19:36 23:13 WBC (3.8-10.6) k/uL RBC (3.80-5.40) m/uL Hgb (11.4-16.0) gm/dL Hct (34.0-46.0) % MCV (80.0-100.0) fL MCHC (31.0-37.0) g/dL RDW (11.5-15.5) % Plt Count (150-450) k/uL Macrocytosis ABG Total CO2 (19-24) mmol/L ABG O2 Saturation (94-97) % Chloride (98-107) mmol/L BUN (7-17) mg/dL Glucose (74-99) mg/dL POC Glucose (mg/dL) 119 H 139 H 145 H (70-110) mg/dL Calcium (8.4-10.2) mg/dL 10/14/23 10/14/23 10/14/23 Range/Units 03:52 03:55 03:55 WBC 22.4 H (3.8-10.6) k/uL RBC 2.65 L (3.80-5.40) m/uL Hgb 8.6 L (11.4-16.0) gm/dL Hct 27.9 L (34.0-46.0) % MCV 105.2 H (80.0-100.0) fL MCHC 30.9 L (31.0-37.0) g/dL RDW 21.9 H (11.5-15.5) % Plt Count 103 L (150-450) k/uL Macrocytosis Marked A ABG Total CO2 (19-24) mmol/L ABG O2 Saturation (94-97) % Chloride 117 H (98-107) mmol/L BUN 43 H (7-17) mg/dL Glucose 159 H (74-99) mg/dL POC Glucose (mg/dL) 168 H (70-110) mg/dL Calcium 8.1 L (8.4-10.2) mg/dL 10/14/23 10/14/23 10/14/23 Range/Units 06:40 08:00 11:06 WBC (3.8-10.6) k/uL RBC (3.80-5.40) m/uL Hgb (11.4-16.0) gm/dL Hct (34.0-46.0) % MCV (80.0-100.0) fL MCHC (31.0-37.0) g/dL RDW (11.5-15.5) % Plt Count (150-450) k/uL Macrocytosis ABG Total CO2 25 H (19-24) mmol/L ABG O2 Saturation 98.0 H (94-97) % Chloride (98-107) mmol/L BUN (7-17) mg/dL Glucose (74-99) mg/dL POC Glucose (mg/dL) 157 H 197 H (70-110) mg/dL Calcium (8.4-10.2) mg/dL 10/14/23 Range/Units 12:41 WBC (3.8-10.6) k/uL RBC (3.80-5.40) m/uL Hgb (11.4-16.0) gm/dL Hct (34.0-46.0) % MCV (80.0-100.0) fL MCHC (31.0-37.0) g/dL RDW (11.5-15.5) % Plt Count (150-450) k/uL Macrocytosis ABG Total CO2 (19-24) mmol/L ABG O2 Saturation (94-97) % Chloride (98-107) mmol/L BUN (7-17) mg/dL Glucose (74-99) mg/dL POC Glucose (mg/dL) 163 H (70-110) mg/dL Calcium (8.4-10.2) mg/dL Microbiology - Last 24 Hours (Table) 10/12/23 10:07 Anaerobic Culture - Preliminary Paracentesis Fluid 10/09/23 00:15 Blood Culture - Final Blood 10/12/23 10:07 Gram Stain - Preliminary Ascites Fluid Body Fluid Culture - Preliminary 10/12/23 09:05 Gram Stain - Final Sputum Sputum Culture - Final Marleni albicans Assessment and Plan Assessment: Acute hypoxic respiratory failure secondary to multifocal pneumonia and pulmonary edema. Patient is 8 L high flow oxygen--> intubated on mechanical ventilator. Pulmonary edema likely due to cardiogenic with low ejection fraction 30 to 35%. Multifocal pneumonia Sepsis/septic shock secondary to above. off pressor support Acute HFrEF with ejection fraction 30 -45% COPD with acute exacerbation Lactic acidosis 7.0 on admission Alcoholic liver cirrhosis Ascites Patient is status post paracentesis on 10/13/2023. Hepatic steatosis and hyperbilirubinemia and elevated liver enzymes History of severe alcohol abuse. Quit 5 years ago History of chronic pancreatitis Anxiety/depression Plan: Patient is on mechanical ventilator. off seadtion. Continued on antibiotics in the form of Zosyn. on IV Solu-Medrol and DuoNebs as needed. Patient is off pressor support. Sedation is off and pulmonary is planning for extubation. Patient is getting IV Lasix. Also she is in normal sinus 75 mL/h Cardiology and critical care team is on board.Discussed with her mother at bedside in detail. DVT prophylaxis with Lovenox subcu GI prophylaxis Prognosis is guarded.
[2023-10-14 23:58] LABS: Glucose,Whole Blood 171 mg/dL (70-110)
[2023-10-15 03:52] LABS: Glucose,Whole Blood 182 mg/dL (70-110)
[2023-10-15 04:15] LABS: African American GFR (CKD) >90 (>60 ml/min/1.73 sqM); Anion Gap 7 mmol/L; Anisocytosis Moderate; Basophils % (A) 0 %; Blood Urea Nitrogen 40 mg/dL (7-17); Calcium 8.3 mg/dL (8.4-10.2); Carbon Dioxide 19 mmol/L (22-30); Chloride 119 mmol/L (98-107); Eosinophils % (A) 0 %; Glucose 179 mg/dL (74-99); HCT 27.7 % (34.0-46.0); HGB 8.6 gm/dL (11.4-16.0); Hypochromasia Marked; Lymphocytes # (A) 0.5 k/uL (1.0-4.8); Lymphocytes % (A) 2 %; MCH 33.1 pg (25.0-35.0); MCHC 30.9 g/dL (31.0-37.0); Macrocytosis Marked; Mean Platelet Volume 9.5; Monocytes # (A) 0.9 k/uL (0-1.0); Monocytes % (A) 4 %; Neutrophils # (A) 20.2 k/uL (1.3-7.7); Neutrophils % (A) 93 %; Non-African American GFR(CKD) >90 (>60 ml/min/1.73 sqM); Platelet Count 106 k/uL (150-450); Potassium 3.4 mmol/L (3.5-5.1); RBC 2.59 m/uL (3.80-5.40); RDW 21.6 % (11.5-15.5); Sodium 145 mmol/L (137-145); WBC 21.8 k/uL (3.8-10.6)
[2023-10-15 06:19] LABS: ABG Base Excess -0.6 mmol/L; ABG HCO3 24 mmol/L (21-25); ABG Oxygen Saturation 96.7 % (94-97); ABG PCO2 35 mmHg (35-45); ABG PH 7.43 (7.35-7.45); ABG PO2 81 mmHg (83-108); ABG TCO2 25 mmol/L (19-24)
[2023-10-15] MEDS: POTASSIUM BICARBONATE/CIT AC 20 MEQ TABLET.EFF NG-TUBE SCH ×3 (07:11→20:15)
[2023-10-15 07:46] LABS: Glucose,Whole Blood 175 mg/dL (70-110)
[2023-10-15] MEDS: FUROSEMIDE 10 MG/ML 4 ML VIAL IV STA (08:19)
[2023-10-15] MEDS ORDERED: Potassium Replacement Protocol 1 EACH MISC MISCELLANE PRN (08:52)
--- NOTE | 2023-10-15 09:03 | P.PN ---
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 Patient states that she has been having shortness of breath for the past week and a half and did get worse in the last few days. Patient tried using her breathing treatments at home but did not get improvement. Patient was recently given antibiotics and prednisone by her physician. She has been increasingly weak and not feeling well. Patient presented to ER for evaluation. He was also complaining of cough without any sputum production. Also complaining of chest tightness and anxiety. Denies any leg swelling. No nausea or vomiting. Patient is also having increased abdominal girth. No prior history of paracentesis as per patient. Denies any fever at home. On admission patient was tachycardic and tachypneic and pulse ox 80% on room air. Currently requiring 8 L of oxygen via nasal cannula. CT of the abdomen pelvis showed patchy bilateral airspace consolidation consistent with multilobar pneumonia. Hepatic steatosis, abdominal ascites. Wa ll thickening of small bowel correlate for mild enteritis versus spontaneous bacterial peritonitis. CTA chest showed no PE. Patchy bilateral airspace consolidation consistent with multilobar pneumonia. Chest x-ray showed similar multifocal airspace opacities. Laboratory data showed WBC 16.5 hemoglobin 10.0 MCV 102.4 and platelets 188 and neutrophils 14.4 INR 1.7, D-dimer 2.8 Sodium 132 potassium 3.7 chloride 95 bicarbonate 24 BUN 18 and creatinine 0.84 and blood sugar 270 and lactic acid 7.0 on admission, calcium 8.1, total bilirubin level is 4.6 AST 113 ALT 68 and alk phos 208 Troponin 0.012 and proBNP 2040 and albumin 3.0 Influenza A, B, RSV and COVID-19 PCR not detected. 10/10/2023 Patient was transferred to MICU. Overnight patient's respiratory status worsened due to multifocal pneumonia and also patient is receiving fluids at 100 cc/h due to sepsis. Patient was intubated and is on assist-control. Patient is currently requiring pressor support. Chest x-ray this morning showed severe bilateral pulmonary infiltration which has worsened. Was given IV Lasix. 2D echocardiogram showed dilated LV and severe LV systolic dysfunction. Ejection fraction 30 to 35%. Laboratory showed WBC worsened to 26.6 hemoglobin 10.3 and platelets 190 Sodium 139 potassium 3.6 chloride 108 bicarb is 20 BUN 15 and creatinine 0.64 blood sugar 206 and A1c 6.8 lactic acid 5.4 this morning. Liver enzymes are elevated. Cardiology and pulmonary is on board. Patient is being continued on antibiotics changed to Zosyn. Procalcitonin level is elevated at 0.61. 10/11/2023 Patient is in the MICU. Intubated and sedated. On mechanical ventilator. Patient is also requiring pressor support with Levophed and also on dobutamine drip. Urine output remains low. Patient has been afebrile. Nutrition via NG tube. Patient was also started on IV hydration with normal saline at 75 cc/h. Chest x-ray showed multifocal airspace opacities are not significantly changed. Support tubes and proper positioning. Patient remains on antibiotics in the form of Zosyn. 2D echocardiogram showed left ventricular ejection fraction 30 to 35%. Mild right ventricular dilatation. Trace pericardial effusion and pleural effusion was identified. Laboratory data showed WBC 24.9 hemoglobin 9.6 and platelets 187 Sodium 137 potassium 4.2 chloride 102 bicarb is 26 BUN 25 and creatinine 1.1 and blood sugar 264. Patient is scheduled for paracentesis tomorrow. Blood cultures negative so far. Cardiology and pulmonary is on board. 10/12/2023 Patient is in the MICU. Remains intubated and sedated. On assist-control with respiratory of 20 tidal volume 350 and FiO2 40% and PEEP of 10. Continue to be on vasopressin and norepinephrine. Patient was also started on IV hydration with normal saline at 75 cc/h. Urine output is marginal. Patient remains on antibiotics Zosyn. Repeat chest x-ray this morning showed similar multifocal airspace opacities. Patient was given a dose of IV Lasix. Stable support tubes. Laboratory data showed WBC 24.6 hemoglobin 9.1 and platelets 144 BUN 40 and creatinine 1.09 and blood sugar is elevated at 312. Levemir dose increased to 12 units twice daily and continue with insulin sliding scale. Cardiology and critical care team is on board.Patient is scheduled to go for paracentesis today. 10/13/2023 Patient remains in the MICU. On assist-control with FiO2 35% and PEEP of 10. Tidal volume 350. Currently sedation is off. Chest x-ray showed stable exam mild pulmonary edema. Patient underwent ultrasound-guided paracentesis with 1800 cc clear straw- colored fluid drained. Pathology and culture is pending. Laboratory data showed WBC 25.4 hemoglobin 8.7 and platelets 127 BUN 49 creatinine 1.03 potassium 4.2 and blood sugar 159. Patient is being current on IV Solu-Medrol 60 mg every 6 hourly and is also on antibiotics, Zosyn. 10/14/2023 Patient is a pleasant 48 years old female who presents with bilateral pneumonia with acute hypoxic respiratory failure requiring intubation and mechanical ventilation. CTA of the chest was negative for PE which is done secondary to high d-dimer, CT of the abdomen showing thickened small bowel loops suspicious for enteritis, patient currently covered with Zosyn ProBNP is elevated 2039, chest x-ray showing mild was for congestion and ejection fraction is 30-35% patient is receiving IV Lasix and She Is Intubated. She Is Also on Salmeterol 60 Mg for Possible Acute COPD Exacerbation. Patient on Insulin Levemir 12 Units Twice Daily She Has Decompensated Liver Cirrhosis Status Post Paracentesis on 10/12 Where 1800 ML of Fluid Aspirated Patient today undergoing sedation holiday with propofol was off since yesterday Patient got agitated and she was placed on Precedex as well as IV morphine with little help so far Discussed with the bedside nurse Patient could not tolerate CPAP earlier, currently continued on mechanical ventilation with P5 and FiO2 of 40% Family at bedside 10/15/2023 Patient remains in the ICU intubated and sedated Over the last 2 days she was undergoing sedation holiday and propofol was stopped Today she was more agitated and she was placed back on a propofol Pulmonary level yesterday was 20 but given her worsening mentation we ordered a repeat ammonia level and KUB for abdomen slightly distended She had paracentesis related to her decompensated liver cirrhosis about 3 days ago with 1800 mL of fluid taken out We going to order a KUB but possible patient will require more paracentesis She received 1 dose of IV Lasix Normal saline 75 mL output 250 mL/h She remains on Zosyn and Solu-Medrol 60 mg Discussed with the bedside nurse Active Medications Generic Name Dose Route Start Last Admin Trade Name Freq PRN Reason Stop Dose Admin Albuterol/Ipratropium 3 ml 10/09/23 12:00 10/15/23 08:04 Ipratropium-Albuterol 3 Ml Neb INHALATION 3 ml RT-Q4H ELIESER Administration Budesonide 1 mg 10/09/23 20:00 10/15/23 08:04 Budesonide 1 Mg/2 Ml Nebu INHALATION 1 mg RT-BID ELIESER Administration Chlorhexidine Gluconate 15 ml 10/10/23 09:00 10/15/23 08:48 Chlorhexidine Gluconate 15 Ml Cup MUCOUS MEM 15 ml BID ELIESER Administration Dextrose/Water 25 ml 10/09/23 10:20 Dextrose 50% Syringe 50 Ml IVP PER PROTOCOL PRN Hypoglycemia Protocol Dextrose/Water 50 ml 10/09/23 10:20 Dextrose 50% Syringe 50 Ml IVP PER PROTOCOL PRN Hypoglycemia Protocol Enoxaparin Sodium 40 mg 10/13/23 09:00 10/15/23 08:47 Enoxaparin 40 Mg/0.4 Ml Syringe SQ 40 mg DAILY ELIESER Administration Folic Acid 1 mg 10/09/23 09:00 10/15/23 08:48 Folic Acid 1 Mg Tab PO 1 mg DAILY ELIESER Administration Formoterol Fumarate 20 mcg 10/09/23 20:00 10/15/23 08:04 Formoterol Fumarate 20 Mcg/2 Ml Nebu INHALATION 20 mcg RT-BID ELIESER Administration Sodium Chloride 1,000 mls @ 50 mls/hr 10/09/23 10:30 10/15/23 06:26 Saline 0.9% IV 75 mls/hr .Q20H ELIESER Administration Propofol 1,000 mg/ IV Solution 100 mls @ 4.899 mls/hr 10/10/23 06:00 10/15/23 06:53 IV 45 mcg/kg/min .[id number] ELIESER 14.696 mls/hr Administration Protocol 15 MCG/KG/MIN Norepinephrine Bitartrate 4 mg 254 mls @ 6.221 mls/hr 10/10/23 06:15 10/15/23 06:27 / Sodium Chloride IV Not Given .Q24H ELIESER Protocol 0.03 MCG/KG/MIN Piperacillin Sod/Tazobactam 100 mls @ 25 mls/hr 10/10/23 16:00 10/15/23 08:30 Sod 3.375 gm/ Sodium Chloride IVPB 25 mls/hr Q8HR ELIESER Administration Protocol Vasopressin 20 unit/ Sodium 51 mls @ 4.59 mls/hr 10/11/23 09:30 10/15/23 03:53 Chloride IV Not Given .[id number] ELIESER Protocol 0.03 UNITS/MIN Dexmedetomidine HCl 400 mcg/ 100 mls @ 3.96 mls/hr 10/14/23 13:45 10/14/23 15:17 IV Solution IV 0 mcg/kg/hr .Q24H ELIESER 0 mls/hr Titration Protocol 0.2 MCG/KG/HR Insulin Aspart 0 unit 10/12/23 04:00 10/15/23 08:27 Insulin Aspart (Novolog) 100 Unit/Ml Vial SQ 3 unit Q4H ELIESER Administration Protocol Insulin Detemir 12 unit 10/12/23 10:45 10/15/23 08:26 Insulin Detemir (Levemir) 100 Unit/Ml Syr SQ 12 unit BID ELIESER Administration Lorazepam 1 mg 10/08/23 20:24 10/15/23 08:44 Lorazepam 2 Mg/Ml Inj IV 1 mg Q2HR PRN Administration CIWA 8 or 9 Lorazepam 1 mg 10/08/23 20:24 10/10/23 04:45 Lorazepam 2 Mg/Ml Inj IV 1 mg Q1HR PRN Administration CIWA 10 to 15 Methylprednisolone Sodium Succinate 60 mg 10/09/23 12:00 10/15/23 06:43 Methylprednisolone Sod Succi 125 Mg/2 Ml Vial IV 60 mg Q6HR ELIESER Administration Metoprolol Tartrate 25 mg 10/15/23 09:00 Metoprolol Tartrate 25 Mg Tab PO TID ON LICENSE OF [facility] Miscellaneous Information 1 each 10/08/23 23:59 Pneumonia Protocol Utilized 1 Each Misc PO ONCE PRN Per Protocol Miscellaneous Information 1 each 10/10/23 07:06 Potassium Replacement Protocol 1 Each Misc MISCELLANE DAILY PRN Per Protocol Protocol Miscellaneous Information 1 each 10/15/23 08:52 Potassium Replacement Protocol 1 Each Misc MISCELLANE DAILY PRN Per Protocol Protocol Morphine Sulfate 4 mg 10/08/23 23:59 10/15/23 00:02 Morphine Sulfate 4 Mg/Ml Syringe IV 4 mg Q4HR PRN Administration Severe Pain (Scale 7 to 10) Multivitamins 1 each 10/09/23 09:00 10/15/23 08:48 Multivitamins, Thera 1 Each Tab PO 1 each DAILY ELIESER Administration Nicotine 1 patch 10/09/23 01:35 10/14/23 08:01 Nicotine 21mg/24hr Patch TRANSDERM 1 patch DAILY ELIESER Administration Ondansetron HCl 4 mg 10/08/23 23:59 10/09/23 18:29 Ondansetron 4 Mg/2 Ml Vial IVP 4 mg Q8HR PRN Administration Nausea And Vomiting Pantoprazole Sodium 80 mg 10/10/23 09:15 10/15/23 08:23 Pantoprazole 40 Mg/10 Ml Vial IVP 80 mg DAILY ELIESER Administration Paroxetine HCl 40 mg 10/09/23 21:00 10/14/23 20:00 Paroxetine 20 Mg Tab PO 40 mg HS ELIESER Administration Thiamine HCl 100 mg 10/09/23 09:00 10/15/23 08:48 Thiamine 100 Mg Tab PO 100 mg DAILY ELIESER Administration Objective - Vital Signs Vital signs: Vital Signs Temp 98.8 F 10/15/23 00:00 Pulse 110 H 10/15/23 08:28 Resp 20 10/15/23 07:00 BP 109/71 10/15/23 01:00 Pulse Ox 94 L 10/15/23 07:00 FiO2 40 10/15/23 07:54 Intake & Output 10/14/23 10/15/23 10/15/23 18:59 06:59 18:59 Intake Total 6179.945 6030.350 348 Output Total 1565 370 315 Balance -783.550 4485.350 33 Weight 84 kg Intake: IV 1160 1069 243 .9 pressure bag 60 69 18 Piperacillin-Tazobactam 3 200 100 .375 gm In Sodium Chloride 0.9% 100 ml @ 25 mls/hr IVPB Q8HR ELIESER Rx# :[id number] Sodium Chloride 0.9% 1, 900 900 225 000 ml @ 75 mls/hr IV . [id number] ELIESER Rx#:[id number] Intake, IV Titration 57.919 146.350 Amount Dexmedetomidine/0.9% NaCl 11.055 (Pmx) 400 mcg In Empty Bag 1 bag @ 0.2 MCG/KG/HR 3.96 mls/hr IV .Q24H ELIESER Rx#:[id number] Norepinephrine 4 mg In 10.232 Sodium Chloride 0.9% 250 ml @ 0.03 MCG/KG/MIN 6. 221 mls/hr IV .Q24H ELIESER Rx#:[id number] propofoL 1,000 mg In 36.632 146.350 Empty Bag 1 bag @ 15 MCG/ KG/MIN 4.899 mls/hr IV . [id number] ON LICENSE OF [facility] Rx#:[id number] Tube Feeding 175 420 105 Other 60 90 Output: Urine 1565 370 315 Other: Voiding Method Indwelling Catheter Indwelling Catheter ABP, PAP, CO, CI - Last Documented Arterial Blood Pressure 135/58 - Exam -GENERAL: The patient is intubated HEENT: Pupils are round and equally reacting to light. EOMI. No scleral icterus. No conjunctival pallor. Normocephalic, atraumatic. No pharyngeal erythema. No thyromegaly. CARDIOVASCULAR: S1 and S2 present. No murmurs, rubs, or gallops. PULMONARY: Chest is clear to auscultation, no wheezing , no crackles. ABDOMEN: Soft, nontender, nondistended, normoactive bowel sounds. No palpable organomegaly. MUSCULOSKELETAL: No joint swelling or deformity. EXTREMITIES: No cyanosis, clubbing, or pedal edema. NEUROLOGICAL: Gross neurological examination did not reveal any focal deficits. SKIN: No rashes. no petechiae. - Labs CBC & Chem 7: 10/15/23 03:51 10/15/23 03:51 Labs: Abnormal Lab Results - Last 24 Hours (Table) 10/14/23 10/14/23 10/14/23 Range/Units 11:06 12:41 19:20 WBC (3.8-10.6) k/uL RBC (3.80-5.40) m/uL Hgb (11.4-16.0) gm/dL Hct (34.0-46.0) % MCV (80.0-100.0) fL MCHC (31.0-37.0) g/dL RDW (11.5-15.5) % Plt Count (150-450) k/uL Neutrophils # (1.3-7.7) k/uL Lymphocytes # (1.0-4.8) k/uL Macrocytosis ABG pO2 (83-108) mmHg ABG Total CO2 (19-24) mmol/L Potassium (3.5-5.1) mmol/L Chloride (98-107) mmol/L Carbon Dioxide (22-30) mmol/L BUN (7-17) mg/dL Glucose (74-99) mg/dL POC Glucose (mg/dL) 197 H 163 H 130 H (70-110) mg/dL Calcium (8.4-10.2) mg/dL 10/14/23 10/15/23 10/15/23 Range/Units 23:57 03:51 03:51 WBC 21.8 H (3.8-10.6) k/uL RBC 2.59 L (3.80-5.40) m/uL Hgb 8.6 L (11.4-16.0) gm/dL Hct 27.7 L (34.0-46.0) % MCV 107.0 H (80.0-100.0) fL MCHC 30.9 L (31.0-37.0) g/dL RDW 21.6 H (11.5-15.5) % Plt Count 106 L (150-450) k/uL Neutrophils # 20.2 H (1.3-7.7) k/uL Lymphocytes # 0.5 L (1.0-4.8) k/uL Macrocytosis Marked A ABG pO2 (83-108) mmHg ABG Total CO2 (19-24) mmol/L Potassium (3.5-5.1) mmol/L Chloride (98-107) mmol/L Carbon Dioxide (22-30) mmol/L BUN (7-17) mg/dL Glucose (74-99) mg/dL POC Glucose (mg/dL) 171 H 182 H (70-110) mg/dL Calcium (8.4-10.2) mg/dL 10/15/23 10/15/23 10/15/23 Range/Units 03:51 06:56 07:44 WBC (3.8-10.6) k/uL RBC (3.80-5.40) m/uL Hgb (11.4-16.0) gm/dL Hct (34.0-46.0) % MCV (80.0-100.0) fL MCHC (31.0-37.0) g/dL RDW (11.5-15.5) % Plt Count (150-450) k/uL Neutrophils # (1.3-7.7) k/uL Lymphocytes # (1.0-4.8) k/uL Macrocytosis ABG pO2 81 L (83-108) mmHg ABG Total CO2 25 H (19-24) mmol/L Potassium 3.4 L (3.5-5.1) mmol/L Chloride 119 H (98-107) mmol/L Carbon Dioxide 19 L (22-30) mmol/L BUN 40 H (7-17) mg/dL Glucose 179 H (74-99) mg/dL POC Glucose (mg/dL) 175 H (70-110) mg/dL Calcium 8.3 L (8.4-10.2) mg/dL Microbiology - Last 24 Hours (Table) 10/12/23 10:07 Anaerobic Culture - Preliminary Paracentesis Fluid 10/09/23 00:15 Blood Culture - Final Blood 10/12/23 10:07 Gram Stain - Preliminary Ascites Fluid Body Fluid Culture - Preliminary 10/12/23 09:05 Gram Stain - Final Sputum Sputum Culture - Final Marleni albicans Assessment and Plan Assessment: Acute hypoxic respiratory failure secondary to multifocal pneumonia and pulmonary edema. Patient is 8 L high flow oxygen--> intubated on mechanical ventilator. Pulmonary edema likely due to cardiogenic with low ejection fraction 30 to 35%. Multifocal pneumonia Sepsis/septic shock secondary to above. off pressor support Acute HFrEF with ejection fraction 30 -45% COPD with acute exacerbation Lactic acidosis 7.0 on admission Alcoholic liver cirrhosis Ascites Patient is status post paracentesis on 10/13/2023. Hepatic steatosis and hyperbilirubinemia and elevated liver enzymes History of severe alcohol abuse. Quit 5 years ago History of chronic pancreatitis Anxiety/depression Plan: Patient is on mechanical ventilator. off seadtion. Continued on antibiotics in the form of Zosyn. on IV Solu-Medrol and DuoNebs as needed. Patient is off pressor support. Sedation is off and pulmonary is planning for extubation. Patient is getting IV Lasix. Also she is in normal sinus 50 mL/h check KUB and ammonia level Cardiology and critical care team is on board.Discussed with her mother at bedside in detail. DVT prophylaxis with Lovenox subcu GI prophylaxis Prognosis is guarded.
--- NOTE | 2023-10-15 09:43 | XR ---
EXAMINATION TYPE: XR KUB portable DATE OF EXAM: 10/15/2023 COMPARISON: None INDICATION: Abdominal distention TECHNIQUE: Single view abdomen supine view FINDINGS: No significant bowel gas present. No mass effect is evident. Psoas margins are normal. No organomegaly is present. Catheters on the right with the tip overlying the right sacrum. IMPRESSION: 1. Unremarkable Abdomen
[2023-10-15] MEDS: DEXTROSE 5%-0.45% NACL 1,000 ML IV SCH (09:50)
--- NOTE | 2023-10-15 09:59 | XR ---
EXAMINATION TYPE: XR chest 1V portable DATE OF EXAM: 10/15/2023 COMPARISON: 10/14/2023 INDICATION: Assess lungs TECHNIQUE: Single frontal view of the chest is obtained. FINDINGS: The heart size is normal. The pulmonary vasculature is prominent. Diffuse increased lung markings are present. Correlate for atelectasis and pulmonary edema. Endotracheal tube tip has advanced and is approximately 0.3 cm above the jan. This should be pulle d back 1.5 cm. Was called to the axial timeout interpretation. Nasogastric tube transverses the thorax with tip in the abdomen. IMPRESSION: 1. Diffuse pulmonary edema. Follow-up is recommended. 2. Endotracheal tube tip near the jan and should be pulled back 1.5 cm.
--- NOTE | 2023-10-15 11:01 | PN ---
PROGRESS NOTE SUBJECTIVE: A 48-year-old lady with history of cirrhosis, ascites, hypotension, who is admitted to Hospital because of pneumonia, has respiratory failure and is currently intubated on vent. This morning, her heart rate is elevated as is the blood pressure, remains intubated. Nurse is working on her sedation. OBJECTIVE: VITAL SIGNS: On exam, heart rate is 110 beats per minute, blood pressure is 140/62, respiratory rate is 18. CHEST: Reveals diminished air entry at the bases. HEART: Reveals first and second heart sounds. No gallop. No murmur. ABDOMEN: Soft. EXTREMITIES: Did not reveal any edema. LABORATORY DATA: Labs show hemoglobin of 8.6, platelet count is 106. Creatinine is 0.7. CURRENT MEDICATIONS: Include metoprolol 25 t.i.d. ASSESSMENT: 1. Vent requiring respiratory failure. 2. Hypotension. 3. Tachycardia. PLAN: I will start the patient on metoprolol. Continue rest of her medications. MMODL / IJN: [id number] /
[2023-10-15 12:03] LABS: Glucose,Whole Blood 227 mg/dL (70-110)
[2023-10-15] MEDS: METOPROLOL TARTRATE 25 MG TAB PO SCH (12:05)
--- NOTE | 2023-10-15 12:42 | P.PN ---
Subjective Progress Note Date: 10/15/23 Principal diagnosis: Acute hypoxic respiratory failure secondary to pneumonia, sepsis, and acute pulmonary edema/systolic congestive heart failure This is a pleasant 48-year-old female patient with a known history of alcoholism with subsequent cirrhosis and chronic pancreatitis. Quit drinking approximately 5 years ago. She does have chronic and ongoing tobacco dependence, a nxiety/depression, gastroesophageal reflux disease. She has a 2 week history of initially a dry nonproductive cough that had progressed into a loose congested cough with shortness of breath. She presented here to the emergency room yesterday. DT scan of the abdomen and pelvis revealed patchy bilateral airspace consolidation consistent with multifocal lobar pneumonia. Hepatic steatosis. Abdominal ascites. Wall thickening of the small bowel, correlate for mild enteritis versus spontaneous bacterial peritonitis. CT angiogram ruled out pulmonary embolism. There is again noted patchy bilateral airspace consolidation consistent with multilobar pneumonia. Chest x-ray shows similar multifocal airspace opacities. Count 16.5. Hemoglobin 10.0. Platelets 188. INR 1.7. D-dimer 2.80. Sodium 132. Potassium 3.7. Bicarb 24. BUN 18. Creatinine 0.84. Glucose 270. Initial lactic acid 7.0. Currently 2.2. AST 113. ALT 68. Alk phos 208. ProBNP 2040. Lipase 49. Serum alcohol less than 10. Viral screen negative. She is seen today in consultation in the emergency department. She is currently resting on a stretcher. She is awake and alert. She is requiring 10 L high flow nasal cannula to maintain O2 saturations in the 90s. She drops into the 70s on room air. She was initiated on ceftriaxone and azithromycin azithromycin. NicoDerm patch in place. She received 3 L of fluid resuscitation. Normal saline at 100 ML's per hour. Patient with very today on 10/10/2023, I saw this patient yesterday on consultation, and recommended transferring the patient to the ICU after she was seen in the ER. Apparently the patient was transferred to the ICU, and early this morning her pulmonary status continued to deteriorate, patient developed worsening pulmonary edema with underlying pneumonia, patient did receive significant amount of fluids for her sepsis presentation, and she developed pulmonary edema in addition to her underlying pneumonia. She is now on assist- control rate of 20 tidal volume 350 FiO2 100% and PEEP of 10. ABG this morning showed a pO2 of 80 pCO2 43 pH of 7.34. Patient had an echocardiogram showed severe LV dysfunction with ejection fraction of 30%., There was no evidence of valvular heart disease. Considering the findings, Lasix was given at 60 mg IV push every 12 hours, patient remains empirically on Zosyn for pneumonia and for possible abdominal sepsis. She is yet to have paracentesis to rule out acute spontaneous peritonitis in the last 24 hours, patient developed worsening pulmonary edema, and worsening abdominal distention with worsening ascites. WBC count today is 26.6 hemoglobin is 10.3. Basic metabolic profile is relatively n ormal, renal profile is normal. Calcitonin level is 0.61. BNP yesterday was 2039, influenza and Legionella as well as RSV and COVID-19 screening came back all negative Reevaluated today on 10/11/2023, patient remains in the ICU, intubated and mechanically ventilated. Patient is on assist-control rate of 20 tidal volume 350 FiO2 50% PEEP of 12, ABG showed a pO2 of 128 pCO2 43 pH of 7.41, hence I dropped the PEEP down to 10 and FiO2 down to 45%. Chest x-ray is showing improvement in her pneumonia and improvement in her pulmonary edema. Urine output remains marginal at 25 to 30 cc/h, blood pressure remains marginal in spite of being on dobutamine remain at 2.5 mcg/kg/min norepinephrine at 0.15 mcg/kg/min propofol 40 mcg/kg/min, patient is also on IV fluids at KVO which I have increased today to 75 cc/h and patient remains on Zosyn empirically for pneumonia, and for possible peritonitis. Interventional radiology is delaying and not planning to do paracentesis at this point mostly because of patient's blood pressure is marginal. I will recommend vasopressin on this patient, and will likely discontinue dobutamine on this patient. I have discontinued her Lasix, and started IV fluid at 0.9 normal saline 75 cc/h will initiate nutritional support/vital HP today. Patient remains critically ill, but nonetheless she is improving, updated her family/father and mother at bedside on her condition. WBC count is 24.9 hemoglobin 9.6. WBC count is improving compared to yesterday basic metabolic profile is normal renal profile showed a BUN of 25 creatinine 1.10 slightly worse compared to admission creatinine of 0.64, and that is not surprising Patient was reevaluated today on 10/12/2023, remains in the ICU, intubated and mechanically ventilated, patient is on assist-control rate of 20 tidal volume 350 FiO2 45% PEEP of 10 ABG showed a pO2 of 88 pCO2 37 pH of 7.44. Urine output is marginal roughly 10 to 15 cc/h, hence I recommended a dose of Lasix to be given 40 mg IV push, will hold on fluid boluses since her chest x-ray is showing worsening interstitial edema, slightly worse compared to the chest x-ray she had yesterday. However the patient is now on lesser PEEP and she is on lesser FiO2. Scheduled to have paracentesis today. Patient is on vasopressin at 0.03, she i s also on norepinephrine at 0.03 mcg/kg/min IV fluid at 75 cc/h in the form of 0.9 normal saline. Cultures of the blood remain negative, cultures from the peritoneal fluid will be pending once the patient undergoes paracentesis. Patient remains on Zosyn WBC count today is 24.6, improving hemoglobin is 9.1 basic metabolic profile is normal BUN is 40 creatinine 1.09, again her blood cultures are negative so far, Patient was noted today on 10/13/2023, remains in the ICU, intubated and mechanically ventilated. She is now on assist-control rate of 20 tidal volume 350 FiO2 35% PEEP is 10 ABG showed a pO2 of 148 pCO2 39 pH of 7.43 has significant improvement noted in her ABG and it is correlated with the improvement noted on the chest x-ray. I cut down the PEEP down to 5 and FiO2 was made 40%. Patient remains on vasopressin but she is off norepinephrine or vasopressin at 0.02 units/min, she is on propofol at 30 mcg/kg/min IV fluid remains at 75 cc/h vital HP at 35 cc/h. Her urine output has been marginal, fluid boluses were given about 1 L, if no improvement may at that point consider diuresing the patient. Remains on Zosyn empirically, cultures remain negative. Negative cultures also on the peritoneal fluid so far negative blood cultures WBC count is down to 25.4 hemoglobin 8.7, platelets are 1 27,000 basic metabolic profile is normal renal profile is acceptable with a BUN of 49 creat 1.03. Blood sugar a bit elevated at 178 chest x-ray continues to show improvement with mild interstitial edema/infiltrates Reevaluate today on 10/14/2023, remains in the ICU intubated and mechanically ventilated, patient is on assist-control rate of 20 tidal volume 350 FiO2 40% PEEP is 5 ABG showed a pO2 of 91 pCO2 35 pH of 7.45, hence no changes were made in her ventilator settings. Patient is now completely off pressors, off norepinephrine and off vasopressin, maintained on relatively low-dose of propofol at 20 mcg/kg/min, her IV fluid is running at 75 cc/h, chest x-ray showed mild interstitial edema/infiltrates, given Lasix and she put out 300 cc of urine almost within a short.. Of time after Lasix was given. Patient is having issues with residual from enteral feeding and I will hold the feeding for now temporarily. Remains on Zosyn, her endotracheal tube seems to be sitting high in the trachea and it will be advanced down about 2 cm. Chest x-ray again was reviewed and suggestive of mild interstitial edema. Ammonia level was checked because of her mental status and it seems to be normal her WBC count is coming down to 22.4 hemoglobin is 8.6. Basic metabolic profile is normal renal profile is normal and sugar is 163 sputum is positive for Marleni albicans, ho wever this has no clinical significance at this point Patient was reevaluated today on 10/15/2023, remains in the ICU intubated and mechanically ventilated, patient is on assist-control rate of 20 tidal volume 350 FiO2 50% and PEEP of 5 ABG showed a pO2 of 81 pCO2 35 pH of 7.43. Chest x- ray today showed slight worsening of her interstitial edema, hence I am recommending Lasix again 40 mg IV push was given, and I am recommending Lasix to be given twice daily. Patient is receiving vital HP at 35 cc/h IV fluid at 75 cc/h and I will cut it down since the patient is developing intermittent CHF. Remains on propofol at 50 mcg/kg/min, her last echocardiogram showed ejection fraction of 30 to 35%. CBC is improving down to 21.8 hemoglobin is 8.6 platelets are 106 sodium is 145 hence we will change her IV fluid to D5 4 5, her bicarb is 19. BUN is 40 creatinine 0.71, overall the patient is improving, however unable to cut down sedation significantly as she becomes extremely agitated, did not tolerate Precedex when we tried Precedex couple of days ago. Intermittently the patient is requiring Ativan to keep her synchronous with the ventilator. Sending her chest x-ray appearance today, I am recommending diuretics and I am not recommending weaning at this point yet. I am cutting down her Solu-Medrol to 40 mg IV push every 12 hours keeping her on Lovenox 40 mg subcu daily for DVT prophylaxis. Doing Zosyn for her bilateral pneumonia on presentation. Objective - Vital Signs Vital signs: Vital Signs Temp 99.2 F 10/15/23 12:00 Pulse 96 10/15/23 12:00 Resp 20 10/15/23 12:00 BP 109/71 10/15/23 01:00 Pulse Ox 99 10/15/23 12:00 FiO2 50 10/15/23 10:55 Intake & Output 10/14/23 10/15/23 10/15/23 18:59 06:59 18:59 Intake Total 5004.271 2179.350 580 Output Total 0645 701 6711 Balance -732.376 9606.350 -660 Weight 84 kg Intake: IV 1160 1069 255 .9 pressure bag 60 69 30 Piperacillin-Tazobactam 3 200 100 .375 gm In Sodium Chloride 0.9% 100 ml @ 25 mls/hr IVPB Q8HR [facility] Rx# :[id number] Sodium Chloride 0.9% 1, 900 900 225 000 ml @ 50 mls/hr IV . Q20H [facility] Rx#:[id number] Intake, IV Titration 57.919 146.350 150 Amount Dexmedetomidine/0.9% NaCl 11.055 (Pmx) 400 mcg In Empty Bag 1 bag @ 0.2 MCG/KG/HR 3.96 mls/hr IV .Q24H [facility] Rx#:[id number] Dextrose 5%-0.45% NaCl 1, 150 000 ml @ 75 mls/hr IV . [id number] [facility] Rx#:[id number] Norepinephrine 4 mg In 10.232 Sodium Chloride 0.9% 250 ml @ 0.03 MCG/KG/MIN 6. 221 mls/hr IV .Q24H [facility] Rx#:[id number] propofoL 1,000 mg In 36.632 146.350 Empty Bag 1 bag @ 15 MCG/ KG/MIN 4.899 mls/hr IV . [id number] [facility] Rx#:[id number] Tube Feeding 175 420 175 Other 60 90 Output: Urine 1792 002 9845 Other: Voiding Method Indwelling Catheter Indwelling Catheter ABP, PAP, CO, CI - Last Documented Arterial Blood Pressure 119/48 - Exam GENERAL EXAM: Reveals a 48-year-old female intubated mechanically ventilated sedated, on propofol, at 50 mcg/kg/min HEAD: Normocephalic. EYES: Normal reaction of pupils, equal size. NOSE: Clear with pink turbinates. THROAT: No erythema or exudates. Endotracheal tube and orogastric tubes are intact. NECK: No masses, no JVD. CHEST: No chest wall deformity. Symmetrical chest expansion LUNGS: Diminished breath sounds at the bases crackles at the bases today CVS: S1 and S2 normal with no audible murmur, regular rhythm. ABDOMEN: Abdominal distention, negative bowel sounds, no guarding or rigidity. SKIN: No rashes CENTRAL NERVOUS SYSTEM: On propofol could not assess, Psychiatric: Could not assess patient is sedated EXTREMITIES: No clubbing, trace of bipedal edema, no cyanosis - Labs CBC & Chem 7: 10/15/23 03:51 10/15/23 03:51 Labs: Abnormal Lab Results - Last 24 Hours (Table) 10/14/23 10/14/23 10/14/23 Range/Units 12:41 19:20 23:57 WBC (3.8-10.6) k/uL RBC (3.80-5.40) m/uL Hgb (11.4-16.0) gm/dL Hct (34.0-46.0) % MCV (80.0-100.0) fL MCHC (31.0-37.0) g/dL RDW (11.5-15.5) % Plt Count (150-450) k/uL Neutrophils # (1.3-7.7) k/uL Lymphocytes # (1.0-4.8) k/uL Macrocytosis ABG pO2 (83-108) mmHg ABG Total CO2 (19-24) mmol/L Potassium (3.5-5.1) mmol/L Chloride (98-107) mmol/L Carbon Dioxide (22-30) mmol/L BUN (7-17) mg/dL Glucose (74-99) mg/dL POC Glucose (mg/dL) 163 H 130 H 171 H (70-110) mg/dL Calcium (8.4-10.2) mg/dL 10/15/23 10/15/23 10/15/23 Range/Units 03:51 03:51 03:51 WBC 21.8 H (3.8-10.6) k/uL RBC 2.59 L (3.80-5.40) m/uL Hgb 8.6 L (11.4-16.0) gm/dL Hct 27.7 L (34.0-46.0) % MCV 107.0 H (80.0-100.0) fL MCHC 30.9 L (31.0-37.0) g/dL RDW 21.6 H (11.5-15.5) % Plt Count 106 L (150-450) k/uL Neutrophils # 20.2 H (1.3-7.7) k/uL Lymphocytes # 0.5 L (1.0-4.8) k/uL Macrocytosis Marked A ABG pO2 (83-108) mmHg ABG Total CO2 (19-24) mmol/L Potassium 3.4 L (3.5-5.1) mmol/L Chloride 119 H (98-107) mmol/L Carbon Dioxide 19 L (22-30) mmol/L BUN 40 H (7-17) mg/dL Glucose 179 H (74-99) mg/dL POC Glucose (mg/dL) 182 H (70-110) mg/dL Calcium 8.3 L (8.4-10.2) mg/dL 10/15/23 10/15/23 10/15/23 Range/Units 06:56 07:44 12:01 WBC (3.8-10.6) k/uL RBC (3.80-5.40) m/uL Hgb (11.4-16.0) gm/dL Hct (34.0-46.0) % MCV (80.0-100.0) fL MCHC (31.0-37.0) g/dL RDW (11.5-15.5) % Plt Count (150-450) k/uL Neutrophils # (1.3-7.7) k/uL Lymphocytes # (1.0-4.8) k/uL Macrocytosis ABG pO2 81 L (83-108) mmHg ABG Total CO2 25 H (19-24) mmol/L Potassium (3.5-5.1) mmol/L Chloride (98-107) mmol/L Carbon Dioxide (22-30) mmol/L BUN (7-17) mg/dL Glucose (74-99) mg/dL POC Glucose (mg/dL) 175 H 227 H (70-110) mg/dL Calcium (8.4-10.2) mg/dL Microbiology - Last 24 Hours (Table) 10/12/23 10:07 Gram Stain - Preliminary Ascites Fluid Body Fluid Culture - Preliminary 10/12/23 10:07 Anaerobic Culture - Preliminary Paracentesis Fluid 10/09/23 00:15 Blood Culture - Final Blood 10/12/23 09:05 Gram Stain - Final Sputum Sputum Culture - Final Marleni albicans Assessment and Plan Assessment: Impression: Acute hypoxic respiratory failure secondary to bilateral multilobar pneumonia and superimposed congestive heart failure/systolic in nature. Requiring intubation and mechanical ventilation on 10/10/23 Acute pulmonary edema, cardiogenic in nature, although the possibility of noncardiogenic pulmonary edema is not entirely ruled out but felt to be less likely considering the patient's ejection fraction is only 20% and she received significant amount of fluids upon her initial presentation to the ER Ascites, status post paracentesis, cultures negative on peritoneal fluid so far, Gram stain is negative so far. History of liver cirrhosis related to alcohol abuse, quit drinking over 5 years ago. History of chronic pancreatitis History of anxiety/depression Tobacco dependence syndrome Recommendation: Continue ventilatory support, considering her chest x-ray appears today, patient needs to be diuresed, and not ready for weaning Continue antibiotics//Zosyn, all cultures have been negative so far. Continue bronchodilators whether we will cut down on the steroids to 40 mg IV push twice daily Continue GI and DVT prophylaxis Close monitoring of her electrolytes and renal profile. Change IV fluid to D5 for 5 since her sodium seems to be climbing up. Continue to monitor strictly I's and O's Continue nutritional support. Patient failed trial of Precedex, hence we will try to avoid Precedex for now Prognosis is guarded. Patient remains critically ill. Will continue to monitor in the ICU Critical care time is over 30. Time with Patient: Greater than 30
[2023-10-15 15:57] LABS: Glucose,Whole Blood 220 mg/dL (70-110)
[2023-10-15 19:34] LABS: Glucose,Whole Blood 197 mg/dL (70-110)
[2023-10-15] MEDS: FUROSEMIDE 10 MG/ML 4 ML VIAL IV SCH (20:14)
[2023-10-15] MEDS: methylPREDNISolone SOD SUCCI 40 MG/ML 1 ML VIAL IV SCH (20:15)
[2023-10-15 23:17] LABS: Glucose,Whole Blood 215 mg/dL (70-110)
[2023-10-16 03:54] LABS: Glucose,Whole Blood 214 mg/dL (70-110)
[2023-10-16 04:24] LABS: Anisocytosis Moderate; Basophils % (A) 0 %; Eosinophils % (A) 0 %; HCT 28.8 % (34.0-46.0); HGB 8.7 gm/dL (11.4-16.0); Hypochromasia Marked; Lymphocytes # (A) 0.8 k/uL (1.0-4.8); Lymphocytes % (A) 3 %; MCH 32.1 pg (25.0-35.0); MCHC 30.3 g/dL (31.0-37.0); MCV 106.1 fL (80.0-100.0); Macrocytosis Marked; Mean Platelet Volume 10.5; Monocytes % (A) 4 %; Neutrophils # (A) 22.8 k/uL (1.3-7.7); Neutrophils % (A) 92 %; RBC 2.71 m/uL (3.80-5.40); RDW 21.3 % (11.5-15.5); WBC 24.8 k/uL (3.8-10.6)
[2023-10-16 04:45] LABS: ALT 73 U/L (4-34); AST 89 U/L (14-36); African American GFR (CKD) >90 (>60 ml/min/1.73 sqM); Albumin 2.6 g/dL (3.5-5.0); Alkaline Phosphatase 114 U/L (38-126); Anion Gap 5 mmol/L; Blood Urea Nitrogen 39 mg/dL (7-17); Calcium 8.3 mg/dL (8.4-10.2); Carbon Dioxide 25 mmol/L (22-30); Chloride 114 mmol/L (98-107); Glucose 195 mg/dL (74-99); Non-African American GFR(CKD) >90 (>60 ml/min/1.73 sqM); Potassium 3.9 mmol/L (3.5-5.1); Sodium 144 mmol/L (137-145); Total Protein 6.4 g/dL (6.3-8.2)
[2023-10-16 05:26] LABS: Platelet Count 98 k/uL (150-450); Target Cells Present
[2023-10-16 06:17] LABS: ABG Base Excess 2.1 mmol/L; ABG HCO3 25 mmol/L (21-25); ABG Oxygen Saturation 97.1 % (94-97); ABG PCO2 34 mmHg (35-45); ABG PH 7.49 (7.35-7.45); ABG PO2 83 mmHg (83-108); ABG TCO2 27 mmol/L (19-24); Allen Test Performed? Yes
[2023-10-16] MEDS: POTASSIUM BICARBONATE/CIT AC 20 MEQ TABLET.EFF NG-TUBE SCH (06:22)
[2023-10-16 07:50] LABS: Glucose,Whole Blood 181 mg/dL (70-110)
--- NOTE | 2023-10-16 08:26 | XR ---
EXAMINATION TYPE: XR chest 1V portable DATE OF EXAM: 10/16/2023 Comparison: 10/15/2023 Clinical History: 48-year-old female mechanical ventilation Findings: ET tube satisfactory. NG tube courses below the diaphragm. Leftward patient rotation ultrasound regar ding mediastinal contours. Heart remains borderline in size. Patchy and diffuse bilateral airspace op acities persist. There may be slight improving aeration of the right upper lung. Impression: Ongoing patchy and diffuse airspace opacities. There may be slight improving aeration at the right up per lung.
[2023-10-16 09:39] LABS: INR 1.6 (<1.2); Prothrombin Time 16.1 sec (10.0-12.5)
--- NOTE | 2023-10-16 11:12 | P.PN ---
Subjective Patient is a 48-year-old female with a past medical history of severe alcohol abuse, quit 5 years ago, alcoholic liver cirrhosis and is on follow-up with her prop maker at [facility], IBS, anxiety/depression and presents to ER with complaints of worsening shortness of breath. Patient states that she has been having shortness of breath for the past week and a half and did get worse in the last few days. Patient tried using her breathing treatments at home but did not get improvement. Patient was recently given antibiotics and prednisone by her physician. She has been increasingly weak and not feeling well. Patient presented to ER for evaluation. He was also complaining of cough without any sputum production. Also complaining of chest tightness and anxiety. Denies any leg swelling. No nausea or vomiting. Patient is also having increased abdominal girth. No prior history of paracentesis as per patient. Denies any fever at home. On admission patient was tachycardic and tachypneic and pulse ox 80% on room air. Currently requiring 8 L of oxygen via nasal cannula. CT of the abdomen pelvis showed patchy bilateral airspace consolidation consistent with multilobar pneumonia. Hepatic steatosis, abdominal ascites. Wa ll thickening of small bowel correlate for mild enteritis versus spontaneous bacterial peritonitis. CTA chest showed no PE. Patchy bilateral airspace consolidation consistent with multilobar pneumonia. Chest x-ray showed similar multifocal airspace opacities. Laboratory data showed WBC 16.5 hemoglobin 10.0 MCV 102.4 and platelets 188 and neutrophils 14.4 INR 1.7, D-dimer 2.8 Sodium 132 potassium 3.7 chloride 95 bicarbonate 24 BUN 18 and creatinine 0.84 and blood sugar 270 and lactic acid 7.0 on admission, calcium 8.1, total bilirubin level is 4.6 AST 113 ALT 68 and alk phos 208 Troponin 0.012 and proBNP 2040 and albumin 3.0 Influenza A, B, RSV and COVID-19 PCR not detected. 10/10/2023 Patient was transferred to MICU. Overnight patient's respiratory status worsened due to multifocal pneumonia and also patient is receiving fluids at 100 cc/h due to sepsis. Patient was intubated and is on assist-control. Patient is currently requiring pressor support. Chest x-ray this morning showed severe bilateral pulmonary infiltration which has worsened. Was given IV Lasix. 2D echocardiogram showed dilated LV and severe LV systolic dysfunction. Ejection fraction 30 to 35%. Laboratory showed WBC worsened to 26.6 hemoglobin 10.3 and platelets 190 Sodium 139 potassium 3.6 chloride 108 bicarb is 20 BUN 15 and creatinine 0.64 blood sugar 206 and A1c 6.8 lactic acid 5.4 this morning. Liver enzymes are elevated. Cardiology and pulmonary is on board. Patient is being continued on antibiotics changed to Zosyn. Procalcitonin level is elevated at 0.61. 10/11/2023 Patient is in the MICU. Intubated and sedated. On mechanical ventilator. Patient is also requiring pressor support with Levophed and also on dobutamine drip. Urine output remains low. Patient has been afebrile. Nutrition via NG tube. Patient was also started on IV hydration with normal saline at 75 cc/h. Chest x-ray showed multifocal airspace opacities are not significantly changed. Support tubes and proper positioning. Patient remains on antibiotics in the form of Zosyn. 2D echocardiogram showed left ventricular ejection fraction 30 to 35%. Mild right ventricular dilatation. Trace pericardial effusion and pleural effusion was identified. Laboratory data showed WBC 24.9 hemoglobin 9.6 and platelets 187 Sodium 137 potassium 4.2 chloride 102 bicarb is 26 BUN 25 and creatinine 1.1 and blood sugar 264. Patient is scheduled for paracentesis tomorrow. Blood cultures negative so far. Cardiology and pulmonary is on board. 10/12/2023 Patient is in the MICU. Remains intubated and sedated. On assist-control with respiratory of 20 tidal volume 350 and FiO2 40% and PEEP of 10. Continue to be on vasopressin and norepinephrine. Patient was also started on IV hydration with normal saline at 75 cc/h. Urine output is marginal. Patient remains on antibiotics Zosyn. Repeat chest x-ray this morning showed similar multifocal airspace opacities. Patient was given a dose of IV Lasix. Stable support tubes. Laboratory data showed WBC 24.6 hemoglobin 9.1 and platelets 144 BUN 40 and creatinine 1.09 and blood sugar is elevated at 312. Levemir dose increased to 12 units twice daily and continue with insulin sliding scale. Cardiology and critical care team is on board.Patient is scheduled to go for paracentesis today. 10/13/2023 Patient remains in the MICU. On assist-control with FiO2 35% and PEEP of 10. Tidal volume 350. Currently sedation is off. Chest x-ray showed stable exam mild pulmonary edema. Patient underwent ultrasound-guided paracentesis with 1800 cc clear straw- colored fluid drained. Pathology and culture is pending. Laboratory data showed WBC 25.4 hemoglobin 8.7 and platelets 127 BUN 49 creatinine 1.03 potassium 4.2 and blood sugar 159. Patient is being current on IV Solu-Medrol 60 mg every 6 hourly and is also on antibiotics, Zosyn. 10/14/2023 Patient is a pleasant 48 years old female who presents with bilateral pneumonia with acute hypoxic respiratory failure requiring intubation and mechanical ventilation. CTA of the chest was negative for PE which is done secondary to high d-dimer, CT of the abdomen showing thickened small bowel loops suspicious for enteritis, patient currently covered with Zosyn ProBNP is elevated 2039, chest x-ray showing mild was for congestion and ejection fraction is 30-35% patient is receiving IV Lasix and She Is Intubated. She Is Also on Salmeterol 60 Mg for Possible Acute COPD Exacerbation. Patient on Insulin Levemir 12 Units Twice Daily She Has Decompensated Liver Cirrhosis Status Post Paracentesis on 10/12 Where 1800 ML of Fluid Aspirated Patient today undergoing sedation holiday with propofol was off since yesterday Patient got agitated and she was placed on Precedex as well as IV morphine with little help so far Discussed with the bedside nurse Patient could not tolerate CPAP earlier, currently continued on mechanical ventilation with P5 and FiO2 of 40% Family at bedside 10/15/2023 Patient remains in the ICU intubated and sedated Over the last 2 days she was undergoing sedation holiday and propofol was stopped Today she was more agitated and she was placed back on a propofol Pulmonary level yesterday was 20 but given her worsening mentation we ordered a repeat ammonia level and KUB for abdomen slightly distended She had paracentesis related to her decompensated liver cirrhosis about 3 days ago with 1800 mL of fluid taken out We going to order a KUB but possible patient will require more paracentesis She received 1 dose of IV Lasix Normal saline 75 mL output 250 mL/h She remains on Zosyn and Solu-Medrol 60 mg Discussed with the bedside nurse 10/16/2023 Patient remains in the ICU intubated and sedated Yesterday after on repeat chest x-ray showing pulmonary congestion IV fluids of normal saline 50 mL was stopped and patient was started on IV Lasix 40 mg every 8 hours Repeat chest x-ray this morning testosterone pulmonary congestion, KUB showing nonobstructive pattern most likely patient has ascites related to her liver cirrhosis. Also patient placed on low-dose Lopressor suffers a percent respiratory blood pressure Metoprolol 25 mg 3 times a day per [employer] This she swelling is on board and patient glucose is controlled. Active Medications Generic Name Dose Route Start Last Admin Trade Name Freq PRN Reason Stop Dose Admin Albuterol/Ipratropium 3 ml 10/09/23 12:00 10/16/23 08:04 Ipratropium-Albuterol 3 Ml Neb INHALATION 3 ml RT-Q4H ELIESER Administration Budesonide 1 mg 10/09/23 20:00 10/16/23 08:04 Budesonide 1 Mg/2 Ml Nebu INHALATION 1 mg RT-BID ELIESER Administration Chlorhexidine Gluconate 15 ml 10/10/23 09:00 10/16/23 09:05 Chlorhexidine Gluconate 15 Ml Cup MUCOUS MEM 15 ml BID ELIESER Administration Dextrose/Water 25 ml 10/09/23 10:20 Dextrose 50% Syringe 50 Ml IVP PER PROTOCOL PRN Hypoglycemia Protocol Dextrose/Water 50 ml 10/09/23 10:20 Dextrose 50% Syringe 50 Ml IVP PER PROTOCOL PRN Hypoglycemia Protocol Enoxaparin Sodium 40 mg 10/13/23 09:00 10/16/23 09:05 Enoxaparin 40 Mg/0.4 Ml Syringe SQ 40 mg DAILY ELIESER Administration Folic Acid 1 mg 10/09/23 09:00 10/16/23 09:19 Folic Acid 1 Mg Tab PO 1 mg DAILY ELISEER Administration Formoterol Fumarate 20 mcg 10/09/23 20:00 10/16/23 08:04 Formoterol Fumarate 20 Mcg/2 Ml Nebu INHALATION 20 mcg RT-BID ELIESER Administration Furosemide 40 mg 10/16/23 16:00 Furosemide 10 Mg/Ml 4 Ml Vial IV Q8HR ELIESER Propofol 1,000 mg/ IV Solution 100 mls @ 4.899 mls/hr 10/10/23 06:00 10/16/23 10:44 IV 20 mcg/kg/min .[id number] ELIESER 6.532 mls/hr Titration Protocol 15 MCG/KG/MIN Norepinephrine Bitartrate 4 mg 254 mls @ 6.221 mls/hr 10/10/23 06:15 10/16/23 07:48 / Sodium Chloride IV Not Given .Q24H ELIESER Protocol 0.03 MCG/KG/MIN Piperacillin Sod/Tazobactam 100 mls @ 25 mls/hr 10/10/23 16:00 10/16/23 09:10 Sod 3.375 gm/ Sodium Chloride IVPB 25 mls/hr Q8HR ELIESER Administration Protocol Vasopressin 20 unit/ Sodium 51 mls @ 4.59 mls/hr 10/11/23 09:30 10/16/23 00:55 Chloride IV Not Given .[id number] ELIESER Protocol 0.03 UNITS/MIN Dexmedetomidine HCl 400 mcg/ 100 mls @ 3.96 mls/hr 10/14/23 13:45 10/15/23 14:00 IV Solution IV Not Given .Q24H ELIESER Protocol 0.2 MCG/KG/HR Insulin Aspart 0 unit 10/12/23 04:00 10/16/23 09:04 Insulin Aspart (Novolog) 100 Unit/Ml Vial SQ 3 unit Q4H ELIESER Administration Protocol Insulin Detemir 12 unit 10/12/23 10:45 10/16/23 09:04 Insulin Detemir (Levemir) 100 Unit/Ml Syr SQ 12 unit BID ELIESER Administration Lorazepam 1 mg 10/08/23 20:24 10/15/23 17:54 Lorazepam 2 Mg/Ml Inj IV 1 mg Q2HR PRN Administration CIWA 8 or 9 Lorazepam 1 mg 10/08/23 20:24 10/10/23 04:45 Lorazepam 2 Mg/Ml Inj IV 1 mg Q1HR PRN Administration CIWA 10 to 15 Methylprednisolone Sodium Succinate 40 mg 10/15/23 21:00 10/16/23 09:01 Methylprednisolone Sod Succi 40 Mg/Ml 1 Ml Vial IV 40 mg Q12HR ELIESER Administration Metoprolol Tartrate 25 mg 10/15/23 09:00 10/16/23 09:17 Metoprolol Tartrate 25 Mg Tab PO 25 mg TID ELIESER Administration Miscellaneous Information 1 each 10/08/23 23:59 Pneumonia Protocol Utilized 1 Each Misc PO ONCE PRN Per Protocol Miscellaneous Information 1 each 10/10/23 07:06 Potassium Replacement Protocol 1 Each Misc MISCELLANE DAILY PRN Per Protocol Protocol Miscellaneous Information 1 each 10/15/23 08:52 Potassium Replacement Protocol 1 Each Misc MISCELLANE DAILY PRN Per Protocol Protocol Morphine Sulfate 4 mg 10/08/23 23:59 10/15/23 22:02 Morphine Sulfate 4 Mg/Ml Syringe IV 4 mg Q4HR PRN Administration Severe Pain (Scale 7 to 10) Multivitamins 1 each 10/09/23 09:00 10/16/23 09:17 Multivitamins, Thera 1 Each Tab PO 1 each DAILY ELIESER Administration Nicotine 1 patch 10/09/23 01:35 10/16/23 09:10 Nicotine 21mg/24hr Patch TRANSDERM 1 patch DAILY ELIESER Administration Ondansetron HCl 4 mg 10/08/23 23:59 10/09/23 18:29 Ondansetron 4 Mg/2 Ml Vial IVP 4 mg Q8HR PRN Administration Nausea And Vomiting Pantoprazole Sodium 80 mg 10/10/23 09:15 10/16/23 09:02 Pantoprazole 40 Mg/10 Ml Vial IVP 80 mg DAILY ELIESER Administration Paroxetine HCl 40 mg 10/09/23 21:00 10/15/23 20:18 Paroxetine 20 Mg Tab PO 40 mg HS ELIESER Administration Thiamine HCl 100 mg 10/09/23 09:00 10/16/23 09:17 Thiamine 100 Mg Tab PO 100 mg DAILY ELIESER Administration Objective - Vital Signs Vital signs: Vital Signs Temp 98.9 F 10/16/23 08:00 Pulse 79 10/16/23 10:30 Resp 30 H 10/16/23 10:30 BP 112/79 10/16/23 10:30 Pulse Ox 93 L 10/16/23 10:30 FiO2 40 10/16/23 10:00 Intake & Output 10/15/23 10/16/23 10/16/23 18:59 06:59 18:59 Intake Total 2588.807 5758.358 443.478 Output Total 1415 1120 125 Balance 91.000 370.358 318.478 Weight 81.9 kg 81.9 kg Intake: IV 391 172 174 .9 pressure bag 66 72 24 Dextrose 5%-0.45% NaCl 1, 150 000 ml @ 50 mls/hr IV . Q20H ELIESER Rx#:[id number] Piperacillin-Tazobactam 3 100 100 .375 gm In Sodium Chloride 0.9% 100 ml @ 25 mls/hr IVPB Q8HR ELIESER Rx# :[id number] Sodium Chloride 0.9% 1, 225 000 ml @ 50 mls/hr IV . Q20H ELIESER Rx#:[id number] Intake, IV Titration 700.000 808.358 99.478 Amount Dextrose 5%-0.45% NaCl 1, 600 625 50 000 ml @ 50 mls/hr IV . Q20H ELIESER Rx#:[id number] propofoL 1,000 mg In 100.000 183.358 49.478 Empty Bag 1 bag @ 15 MCG/ KG/MIN 4.899 mls/hr IV . [id number] ELIESER Rx#:[id number] Tube Feeding 385 420 140 Other 30 90 30 Output: Urine 1415 1120 125 Other: Voiding Method Indwelling Catheter Indwelling Catheter # Bowel Movements 1 ABP, PAP, CO, CI - Last Documented Arterial Blood Pressure 126/61 - Exam -GENERAL: The patient is intubated HEENT: Pupils are round and equally reacting to light. EOMI. No scleral icterus. No conjunctival pallor. Normocephalic, atraumatic. No pharyngeal erythema. No thyromegaly. CARDIOVASCULAR: S1 and S2 present. No murmurs, rubs, or gallops. PULMONARY: Chest is clear to auscultation, no wheezing , no crackles. ABDOMEN: Soft, nontender, nondistended, normoactive bowel sounds. No palpable organomegaly. MUSCULOSKELETAL: No joint swelling or deformity. EXTREMITIES: No cyanosis, clubbing, or pedal edema. NEUROLOGICAL: Gross neurological examination did not reveal any focal deficits. SKIN: No rashes. no petechiae. - Labs CBC & Chem 7: 10/16/23 03:53 10/16/23 03:53 Labs: Abnormal Lab Results - Last 24 Hours (Table) 10/15/23 10/15/23 10/15/23 Range/Units 12:01 12:02 15:55 WBC (3.8-10.6) k/uL RBC (3.80-5.40) m/uL Hgb (11.4-16.0) gm/dL Hct (34.0-46.0) % MCV (80.0-100.0) fL MCHC (31.0-37.0) g/dL RDW (11.5-15.5) % Plt Count (150-450) k/uL Neutrophils # (1.3-7.7) k/uL Lymphocytes # (1.0-4.8) k/uL Macrocytosis PT (10.0-12.5) sec INR (<1.2) ABG pH (7.35-7.45) ABG pCO2 (35-45) mmHg ABG Total CO2 (19-24) mmol/L ABG O2 Saturation (94-97) % Potassium 3.4 L (3.5-5.1) mmol/L Chloride (98-107) mmol/L BUN (7-17) mg/dL Glucose (74-99) mg/dL POC Glucose (mg/dL) 227 H 220 H (70-110) mg/dL Calcium (8.4-10.2) mg/dL Total Bilirubin (0.2-1.3) mg/dL Delta Bilirubin (0.0-0.2) mg/dL AST (14-36) U/L ALT (4-34) U/L Albumin (3.5-5.0) g/dL 10/15/23 10/15/23 10/16/23 Range/Units 19:34 23:15 03:52 WBC (3.8-10.6) k/uL RBC (3.80-5.40) m/uL Hgb (11.4-16.0) gm/dL Hct (34.0-46.0) % MCV (80.0-100.0) fL MCHC (31.0-37.0) g/dL RDW (11.5-15.5) % Plt Count (150-450) k/uL Neutrophils # (1.3-7.7) k/uL Lymphocytes # (1.0-4.8) k/uL Macrocytosis PT (10.0-12.5) sec INR (<1.2) ABG pH (7.35-7.45) ABG pCO2 (35-45) mmHg ABG Total CO2 (19-24) mmol/L ABG O2 Saturation (94-97) % Potassium (3.5-5.1) mmol/L Chloride (98-107) mmol/L BUN (7-17) mg/dL Glucose (74-99) mg/dL POC Glucose (mg/dL) 197 H 215 H 214 H (70-110) mg/dL Calcium (8.4-10.2) mg/dL Total Bilirubin (0.2-1.3) mg/dL Delta Bilirubin (0.0-0.2) mg/dL AST (14-36) U/L ALT (4-34) U/L Albumin (3.5-5.0) g/dL 10/16/23 10/16/23 10/16/23 Range/Units 03:53 03:53 06:13 WBC 24.8 H (3.8-10.6) k/uL RBC 2.71 L (3.80-5.40) m/uL Hgb 8.7 L (11.4-16.0) gm/dL Hct 28.8 L (34.0-46.0) % MCV 106.1 H (80.0-100.0) fL MCHC 30.3 L (31.0-37.0) g/dL RDW 21.3 H (11.5-15.5) % Plt Count 98 L (150-450) k/uL Neutrophils # 22.8 H (1.3-7.7) k/uL Lymphocytes # 0.8 L (1.0-4.8) k/uL Macrocytosis Marked A PT (10.0-12.5) sec INR (<1.2) ABG pH 7.49 H (7.35-7.45) ABG pCO2 34 L (35-45) mmHg ABG Total CO2 27 H (19-24) mmol/L ABG O2 Saturation 97.1 H (94-97) % Potassium (3.5-5.1) mmol/L Chloride 114 H (98-107) mmol/L BUN 39 H (7-17) mg/dL Glucose 195 H (74-99) mg/dL POC Glucose (mg/dL) (70-110) mg/dL Calcium 8.3 L (8.4-10.2) mg/dL Total Bilirubin 3.0 H (0.2-1.3) mg/dL Delta Bilirubin 2.0 H (0.0-0.2) mg/dL AST 89 H (14-36) U/L ALT 73 H (4-34) U/L Albumin 2.6 L (3.5-5.0) g/dL 10/16/23 10/16/23 Range/Units 07:48 09:08 WBC (3.8-10.6) k/uL RBC (3.80-5.40) m/uL Hgb (11.4-16.0) gm/dL Hct (34.0-46.0) % MCV (80.0-100.0) fL MCHC (31.0-37.0) g/dL RDW (11.5-15.5) % Plt Count (150-450) k/uL Neutrophils # (1.3-7.7) k/uL Lymphocytes # (1.0-4.8) k/uL Macrocytosis PT 16.1 H (10.0-12.5) sec INR 1.6 H (<1.2) ABG pH (7.35-7.45) ABG pCO2 (35-45) mmHg ABG Total CO2 (19-24) mmol/L ABG O2 Saturation (94-97) % Potassium (3.5-5.1) mmol/L Chloride (98-107) mmol/L BUN (7-17) mg/dL Glucose (74-99) mg/dL POC Glucose (mg/dL) 181 H (70-110) mg/dL Calcium (8.4-10.2) mg/dL Total Bilirubin (0.2-1.3) mg/dL Delta Bilirubin (0.0-0.2) mg/dL AST (14-36) U/L ALT (4-34) U/L Albumin (3.5-5.0) g/dL Microbiology - Last 24 Hours (Table) 10/12/23 10:07 Gram Stain - Final Ascites Fluid Body Fluid Culture - Final Assessment and Plan Assessment: Acute hypoxic respiratory failure secondary to multifocal pneumonia and pulmonary edema. Patient is 8 L high flow oxygen--> intubated on mechanical ventilator. Pulmonary edema likely due to cardiogenic with low ejection fraction 30 to 35%. Acute HFrEF with ejection fraction 30 -45% Multifocal pneumonia Sepsis/septic shock secondary to above. off pressor support COPD with acute exacerbation Lactic acidosis 7.0 on admission Alcoholic liver cirrhosis Ascites Patient is status post paracentesis on 10/13/2023. Hepatic steatosis and hyperbilirubinemia and elevated liver enzymes History of severe alcohol abuse. Quit 5 years ago History of chronic pancreatitis Anxiety/depression Plan: Patient is on mechanical ventilator. Continued on antibiotics in the form of Zosyn. on IV Solu-Medrol and DuoNebs as needed. Postop IV fluids and start Lasix 40 mg IV Cardiology team is on the case Cardiology and critical care team is on board.Discussed with her mother at bedside in detail. DVT prophylaxis with Lovenox subcu GI prophylaxis Prognosis is guarded.
[2023-10-16 12:31] LABS: Glucose,Whole Blood 122 mg/dL (70-110)
--- NOTE | 2023-10-16 12:43 | P.PN ---
Subjective Progress Note Date: 10/16/23 Principal diagnosis: Liver failure, respiratory failure. This is a pleasant 48-year-old female patient with a known history of alcoholism with subsequent cirrhosis and chronic pancreatitis. Quit drinking approximately 5 years ago. She does have chronic and ongoing tobacco dependence, anxiety/depression, gastroesophageal reflux disease. She has a 2 week history of initially a dry nonproductive cough that had progressed into a loose congested cough with shortness of breath. She presented here to the emergency room yesterday. DT scan of the abdomen and pelvis revealed patchy bilateral airspace consolidation consistent with multifocal lobar pneumonia. Hepatic steatosis. Abdominal ascites. Wall thickening of the small bowel, correlate for mild enteritis versus spontaneous bacterial peritonitis. CT angiogram ruled out pulmonary embolism. There is again noted patchy bilateral airspace consolidation consistent with multilobar pneumonia. Chest x-ray shows similar multifocal airspace opacities. Count 16.5. Hemoglobin 10.0. Platelets 188. INR 1.7. D-dimer 2.80. Sodium 132. Potassium 3.7. Bicarb 24. BUN 18. Creatinine 0.84. Glucose 270. Initial lactic acid 7.0. Currently 2.2. AST 113. ALT 68. Alk phos 208. ProBNP 2040. Lipase 49. Serum alcohol less than 10. Viral screen negative. She is seen today in consultation in the emergency department. She is currently resting on a stretcher. She is awake and alert. She is requiring 10 L high flow nasal cannula to maintain O2 saturations in the 90s. She drops into the 70s on room air. She was initiated on ceftriaxone and azithromycin azithromycin. NicoDerm patch in place. She received 3 L of fluid resuscitation. Normal saline at 100 ML's per hour. Patient with very today on 10/10/2023, I saw this patient yesterday on consultation, and recommended transferring the patient to the ICU after she was seen in the ER. Apparently the patient was transferred to the ICU, and early this morning her pulmonary status continued to deteriorate, patient developed worsening pulmonary edema with underlying pneumonia, patient did receive significant amount of fluids for her sepsis presentation, and she developed pulmonary edema in addition to her underlying pneumonia. She is now on assist- control rate of 20 tidal volume 350 FiO2 100% and PEEP of 10. ABG this morning showed a pO2 of 80 pCO2 43 pH of 7.34. Patient had an echocardiogram showed severe LV dysfunction with ejection fraction of 30%., There was no evidence of valvular heart disease. Considering the findings, Lasix was given at 60 mg IV push every 12 hours, patient remains empirically on Zosyn for pneumonia and for possible abdominal sepsis. She is yet to have paracentesis to rule out acute spontaneous peritonitis in the last 24 hours, patient developed worsening pulmonary edema, and worsening abdominal distention with worsening ascites. WBC count today is 26.6 hemoglobin is 10.3. Basic metabolic profile is relatively normal, renal profile is normal. Calcitonin level is 0.61. BNP yesterday was 2039, influenza and Legionella as well as RSV and COVID-19 screening came back all negative Reevaluated today on 10/11/2023, patient remains in the ICU, intubated and mechanically ventilated. Patient is on assist-control rate of 20 tidal volume 350 FiO2 50% PEEP of 12, ABG showed a pO2 of 128 pCO2 43 pH of 7.41, hence I dropped the PEEP down to 10 and FiO2 down to 45%. Chest x-ray is showing improvement in her pneumonia and improvement in her pulmonary edema. Urine output remains marginal at 25 to 30 cc/h, blood pressure remains marginal in spite of being on dobutamine remain at 2.5 mcg/kg/min norepinephrine at 0.15 mcg/kg/min propofol 40 mcg/kg/min, patient is also on IV fluids at KVO which I have increased today to 75 cc/h and patient remains on Zosyn empirically for pneumonia, and for possible peritonitis. Interventional radiology is delaying and not planning to do paracentesis at this point mostly because of patient's blood pressure is marginal. I will recommend vasopressin on this patient, and will likely discontinue dobutamine on this patient. I have discontinued her Lasix, and started IV fluid at 0.9 normal saline 75 cc/h will initiate nutritional support/vital HP today. Patient remains critically ill, but nonetheless she is improving, updated her family/father and mother at bedside on her condition. WBC count is 24.9 hemoglobin 9.6. WBC count is improving compared to yesterday basic metabolic profile is normal renal profile showed a BUN of 25 creatinine 1.10 slightly worse compared to admission creatinine of 0.64, and that is not surprising Patient was reevaluated today on 10/12/2023, remains in the ICU, intubated and mechanically ventilated, patient is on assist-control rate of 20 tidal volume 350 FiO2 45% PEEP of 10 ABG showed a pO2 of 88 pCO2 37 pH of 7.44. Urine output is marginal roughly 10 to 15 cc/h, hence I recommended a dose of Lasix to be given 40 mg IV push, will hold on fluid boluses since her chest x-ray is showing worsening interstitial edema, slightly worse compared to the chest x-ray she had yesterday. However the patient is now on lesser PEEP and she is on lesser FiO2. Scheduled to have paracentesis today. Patient is on vasopressin at 0.03, she is also on norepinephrine at 0.03 mcg/kg/min IV fluid at 75 cc/h in the form of 0.9 normal saline. Cultures of the blood remain negative, cultures from the peritoneal fluid will be pending once the patient undergoes paracentesis. Patient remains on Zosyn WBC count today is 24.6, improving hemoglobin is 9.1 basic metabolic profile is normal BUN is 40 creatinine 1.09, again her blood cultures are negative so far, Patient was noted today on 10/13/2023, remains in the ICU, intubated and me chanically ventilated. She is now on assist-control rate of 20 tidal volume 350 FiO2 35% PEEP is 10 ABG showed a pO2 of 148 pCO2 39 pH of 7.43 has significant improvement noted in her ABG and it is correlated with the improvement noted on the chest x-ray. I cut down the PEEP down to 5 and FiO2 was made 40%. Patient remains on vasopressin but she is off norepinephrine or vasopressin at 0.02 unit s/min, she is on propofol at 30 mcg/kg/min IV fluid remains at 75 cc/h vital HP at 35 cc/h. Her urine output has been marginal, fluid boluses were given about 1 L, if no improvement may at that point consider diuresing the patient. Remains on Zosyn empirically, cultures remain negative. Negative cultures also on the peritoneal fluid so far negative blood cultures WBC count is down to 25.4 hemoglobin 8.7, platelets are 1 27,000 basic metabolic profile is normal renal profile is acceptable with a BUN of 49 creat 1.03. Blood sugar a bit elevated at 178 chest x-ray continues to show improvement with mild interstitial edema/infiltrates Reevaluate today on 10/14/2023, remains in the ICU intubated and mechanically ventilated, patient is on assist-control rate of 20 tidal volume 350 FiO2 40% P EEP is 5 ABG showed a pO2 of 91 pCO2 35 pH of 7.45, hence no changes were made in her ventilator settings. Patient is now completely off pressors, off norepinephrine and off vasopressin, maintained on relatively low-dose of propofol at 20 mcg/kg/min, her IV fluid is running at 75 cc/h, chest x-ray showed mild interstitial edema/infiltrates, given Lasix and she put out 300 cc of urine almost within a short.. Of time after Lasix was given. Patient is having issues with residual from enteral feeding and I will hold the feeding for now temporarily. Remains on Zosyn, her endotracheal tube seems to be sitting high in the trachea and it will be advanced down about 2 cm. Chest x-ray again was reviewed and suggestive of mild interstitial edema. Ammonia level was checked because of her mental status and it seems to be normal her WBC count is coming down to 22.4 hemoglobin is 8.6. Basic metabolic profile is normal renal profile is normal and sugar is 163 sputum is positive for Marleni albicans, however this has no clinical significance at this point Patient was reevaluated today on 10/15/2023, remains in the ICU intubated and mechanically ventilated, patient is on assist-control rate of 20 tidal volume 350 FiO2 50% and PEEP of 5 ABG showed a pO2 of 81 pCO2 35 pH of 7.43. Chest x-ray today showed slight worsening of her interstitial edema, hence I am recommending Lasix again 40 mg IV push was given, and I am recommending Lasix to be given twice daily. Patient is receiving vital HP at 35 cc/h IV fluid at 75 cc/h and I will cut it down since the patient is developing intermittent CHF. Remains on propofol at 50 mcg/kg/min, her last echocardiogram showed ejection fraction of 30 to 35%. CBC is improving down to 21.8 hemoglobin is 8.6 platelets are 106 sodium is 145 hence we will change her IV fluid to D5 4 5, her bicarb is 19. BUN is 40 creatinine 0.71, overall the patient is improving, however unable to cut down sedation significantly as she becomes extremely agitated, did not tolerate Precedex when we tried Precedex couple of days ago. Intermittently the patient is requiring Ativan to keep her synchronous with the ventilator. Sending her chest x-ray appearance today, I am recommending diuretics and I am not recommending weaning at this point yet. I am cutting down her Solu-Medrol to 40 mg IV push every 12 hours keeping her on Lovenox 40 mg subcu daily for DVT prophylaxis. Doing Zosyn for her bilateral pneumonia on presentation. Progress note dated October 16, 2023. This is a 48-year-old female who was admitted to the hospital on October 08, with a diagnosis of pneumonia, heart failure, alcoholic liver disease, and ascites. The patient was intubated for respiratory failure on October 10, 2023. She remains on the mechanical ventilator. Settings include volume assist- control, rate 20, tidal volume 350, FiO2 40%, PEEP of 5. Blood gases show pO2 of 83, pCO2 of 34, and a pH of 7.49. This blood gas is consistent with a mild respiratory alkalosis. The patient is receiving propofol at 20 mcg/kg/min, and D5 with half-normal saline at 50 cc an hour. In addition, the patient is receiving vital high-protein at 35 cc an hour, which is goal. Labs include a white count of 24.8, hemoglobin 8.7, hematocrit 28.8, and a platelet count of 98,000. PT is 16.1 with an INR of 1.6. Sodium 144, potassium 3.9, chlorides 114, CO2 25, BUN 39, creatinine 0.71. Glucose is 122. Albumin is 2.6. AST is 89, ALT is 73. The patient's total bilirubin is 3.0. Microbiologic sampling is negative or pending. Chest x-ray shows some diffuse bilateral patchy airspace disease. Objective - Vital Signs Vital signs: Vital Signs Temp 98.9 F 10/16/23 08:00 Pulse 75 10/16/23 12:00 Resp 22 10/16/23 12:00 BP 112/79 10/16/23 10:30 Pulse Ox 97 10/16/23 12:00 FiO2 40 10/16/23 12:00 Intake & Output 10/15/23 10/16/23 10/16/23 18:59 06:59 18:59 Intake Total 0927.613 3525.358 595.478 Output Total 1415 1120 555 Balance 91.000 370.358 40.478 Weight 81.9 kg 81.9 kg Intake: IV 391 172 226 .9 pressure bag 66 72 36 0.9 Sodium Chloride 40 Dextrose 5%-0.45% NaCl 1, 150 000 ml @ 50 mls/hr IV . Q20H [facility] Rx#:[id number] Piperacillin-Tazobactam 3 100 100 .375 gm In Sodium Chloride 0.9% 100 ml @ 25 mls/hr IVPB Q8HR [facility] Rx# :[id number] Sodium Chloride 0.9% 1, 225 000 ml @ 50 mls/hr IV . Q20H [facility] Rx#:[id number] Intake, IV Titration 700.000 808.358 99.478 Amount Dextrose 5%-0.45% NaCl 1, 600 625 50 000 ml @ 50 mls/hr IV . Q20H [facility] Rx#:[id number] propofoL 1,000 mg In 100.000 183.358 49.478 Empty Bag 1 bag @ 15 MCG/ KG/MIN 4.899 mls/hr IV . [id number] [facility] Rx#:[id number] Tube Feeding 385 420 210 Other 30 90 60 Output: Urine 1415 1120 555 Other: Voiding Method Indwelling Catheter Indwelling Catheter Indwelling Catheter # Bowel Movements 1 ABP, PAP, CO, CI - Last Documented Arterial Blood Pressure 113/51 - Exam No acute distress, sedated, with an orally placed NG tube, and endotracheal tube. HEENT examination is grossly unremarkable. Neck supple. Full range of motion. No adenopathy thyromegaly or neck vein distention. Cardiovascular examination reveals regular rhythm rate. S1-S2 normal. No S3 or S4. No discernible murmur noted. Heart rate is 75 bpm. Lungs reveal scattered bilateral rhonchi. Few scattered crackles noted. No wheezes. Breath sounds are equal bilaterally. Saturations are 97%. Abdomen soft, but distended, with likely ascites. No masses. Extremities are intact. No cyanosis or clubbing. Diffuse anasarca is noted. Skin is without rash or lesion. Neurologic examination cannot be assessed at this time. - Labs CBC & Chem 7: 10/16/23 03:53 10/16/23 03:53 Labs: Abnormal Lab Results - Last 24 Hours (Table) 10/15/23 10/15/23 10/15/23 Range/Units 12:02 15:55 19:34 WBC (3.8-10.6) k/uL RBC (3.80-5.40) m/uL Hgb (11.4-16.0) gm/dL Hct (34.0-46.0) % MCV (80.0-100.0) fL MCHC (31.0-37.0) g/dL RDW (11.5-15.5) % Plt Count (150-450) k/uL Neutrophils # (1.3-7.7) k/uL Lymphocytes # (1.0-4.8) k/uL Macrocytosis PT (10.0-12.5) sec INR (<1.2) ABG pH (7.35-7.45) ABG pCO2 (35-45) mmHg ABG Total CO2 (19-24) mmol/L ABG O2 Saturation (94-97) % Potassium 3.4 L (3.5-5.1) mmol/L Chloride (98-107) mmol/L BUN (7-17) mg/dL Glucose (74-99) mg/dL POC Glucose (mg/dL) 220 H 197 H (70-110) mg/dL Calcium (8.4-10.2) mg/dL Total Bilirubin (0.2-1.3) mg/dL Delta Bilirubin (0.0-0.2) mg/dL AST (14-36) U/L ALT (4-34) U/L Albumin (3.5-5.0) g/dL 10/15/23 10/16/23 10/16/23 Range/Units 23:15 03:52 03:53 WBC (3.8-10.6) k/uL RBC (3.80-5.40) m/uL Hgb (11.4-16.0) gm/dL Hct (34.0-46.0) % MCV (80.0-100.0) fL MCHC (31.0-37.0) g/dL RDW (11.5-15.5) % Plt Count (150-450) k/uL Neutrophils # (1.3-7.7) k/uL Lymphocytes # (1.0-4.8) k/uL Macrocytosis PT (10.0-12.5) sec INR (<1.2) ABG pH (7.35-7.45) ABG pCO2 (35-45) mmHg ABG Total CO2 (19-24) mmol/L ABG O2 Saturation (94-97) % Potassium (3.5-5.1) mmol/L Chloride 114 H (98-107) mmol/L BUN 39 H (7-17) mg/dL Glucose 195 H (74-99) mg/dL POC Glucose (mg/dL) 215 H 214 H (70-110) mg/dL Calcium 8.3 L (8.4-10.2) mg/dL Total Bilirubin 3.0 H (0.2-1.3) mg/dL Delta Bilirubin 2.0 H (0.0-0.2) mg/dL AST 89 H (14-36) U/L ALT 73 H (4-34) U/L Albumin 2.6 L (3.5-5.0) g/dL 10/16/23 10/16/23 10/16/23 Range/Units 03:53 06:13 07:48 WBC 24.8 H (3.8-10.6) k/uL RBC 2.71 L (3.80-5.40) m/uL Hgb 8.7 L (11.4-16.0) gm/dL Hct 28.8 L (34.0-46.0) % MCV 106.1 H (80.0-100.0) fL MCHC 30.3 L (31.0-37.0) g/dL RDW 21.3 H (11.5-15.5) % Plt Count 98 L (150-450) k/uL Neutrophils # 22.8 H (1.3-7.7) k/uL Lymphocytes # 0.8 L (1.0-4.8) k/uL Macrocytosis Marked A PT (10.0-12.5) sec INR (<1.2) ABG pH 7.49 H (7.35-7.45) ABG pCO2 34 L (35-45) mmHg ABG Total CO2 27 H (19-24) mmol/L ABG O2 Saturation 97.1 H (94-97) % Potassium (3.5-5.1) mmol/L Chloride (98-107) mmol/L BUN (7-17) mg/dL Glucose (74-99) mg/dL POC Glucose (mg/dL) 181 H (70-110) mg/dL Calcium (8.4-10.2) mg/dL Total Bilirubin (0.2-1.3) mg/dL Delta Bilirubin (0.0-0.2) mg/dL AST (14-36) U/L ALT (4-34) U/L Albumin (3.5-5.0) g/dL 10/16/23 10/16/23 Range/Units 09:08 12:30 WBC (3.8-10.6) k/uL RBC (3.80-5.40) m/uL Hgb (11.4-16.0) gm/dL Hct (34.0-46.0) % MCV (80.0-100.0) fL MCHC (31.0-37.0) g/dL RDW (11.5-15.5) % Plt Count (150-450) k/uL Neutrophils # (1.3-7.7) k/uL Lymphocytes # (1.0-4.8) k/uL Macrocytosis PT 16.1 H (10.0-12.5) sec INR 1.6 H (<1.2) ABG pH (7.35-7.45) ABG pCO2 (35-45) mmHg ABG Total CO2 (19-24) mmol/L ABG O2 Saturation (94-97) % Potassium (3.5-5.1) mmol/L Chloride (98-107) mmol/L BUN (7-17) mg/dL Glucose (74-99) mg/dL POC Glucose (mg/dL) 122 H (70-110) mg/dL Calcium (8.4-10.2) mg/dL Total Bilirubin (0.2-1.3) mg/dL Delta Bilirubin (0.0-0.2) mg/dL AST (14-36) U/L ALT (4-34) U/L Albumin (3.5-5.0) g/dL Microbiology - Last 24 Hours (Table) 10/12/23 10:07 Anaerobic Culture - Final Paracentesis Fluid 10/12/23 10:07 Gram Stain - Final Ascites Fluid Body Fluid Culture - Final Assessment and Plan Assessment: Acute hypoxemic respiratory failure, secondary to bilateral pneumonia, as well as some fluid overload/CHF, status post intubation and mechanical ventilation on October 10, 2023. Acute pulmonary edema, cardiogenic in origin, with an ejection fraction of 20%. Ascites, status post paracentesis abdominis. History of liver cirrhosis, related to alcohol abuse. History of chronic pancreatitis. History of anxiety/depression. Tobacco dependence syndrome. Plan: Plan dated October 16, 2023. The patient continues on ventilatory support, but the patient will have a daily interruption of sedation. Previously, with DIS, the patient becomes acutely agitated, with abnormalities in her vital signs. The patient's Lasix based on her chest x-ray, will be increased to 40 mg every 8 hours. Labs, x-rays, and medications are all reviewed. The patient's overall prognosis remains very guarded. She has diffuse edema and anasarca. The patient remains on propofol at 20 mcg/kg/min, and D5 with half-normal saline at 50 cc an hour, which I told the nurse that she can discontinue. She does continue on vital high-protein at 35 cc an hour, which is her goal. We will continue to follow the patient, make recommendations along the way. The patient's overall prognosis remains very guarded. Time with Patient: Greater than 30
--- NOTE | 2023-10-16 15:05 | P.PN ---
Subjective PROGRESS NOTE The patient is a 48-year-old female with a history of chronic tobacco use, prior history of alcohol intake with liver cirrhosis, ascites and chronic pancreatitis who presented with symptoms of progressive dyspnea and was diagnosed with bilateral multilobar pneumonia, this morning she got more dyspneic requiring mechanical ventilation. Cardiology consultation was requested for possible CHF. The patient has no prior documented history of CAD. Her echocardiogram in 2019 showed a preserved systolic function. She is in sinus mechanism, on low-dose of norepinephrine. She has no evidence of malignant arrhythmia. On admission she had leukocytosis, elevated plasma lactic acid. Her troponin was less then 0.012 and her NT proBNP was 0. She was in sinus mechanism with sinus tachycardia and intermittent incomplete left bundle branch block that appears to be rate related. Her IVCD was not noted in 2019. The nursing staff have been suctioning greenish-yellowish sputum from her ET tube. September 10: The patient remains intubated and sedated. She is on IV dobutamine 2.5 mcg/kg/min in addition to norepinephrine. Her echocardiogram showed an impaired systolic function with an ejection fraction of 30 to 35%. Of note that the patient had a normal LV systolic function in 2019. She continues to be in sinus mechanism and sinus tachycardia. There is no evidence of malignant arrhythmia. Her urinary output is borderline on IV Lasix. Her chest x-ray shows improvement in her infiltrate. September 11: The patient remains intubated and sedated. Off dobutamine on the lower dose of norepinephrine and continues to be on vasopressin. She has been getting IV fluid at 75 cc an hour. Her urinary output is borderline. She is afebrile. She continues to be in sinus mechanism with no evidence of atrial fibrillation. She may undergo paracentesis today. 10/16 Patient seen and examined. Patient was previously receiving IV fluids however has been receiving more aggressive diuresis. Lasix was increased to 80 mg 3 times a day with good urine output. Creatinine has been stable. Remains on ventilator with FiO2 40% and PEEP of 5. Echo showed ejection fraction 30-35% Medications: PHYSICAL EXAMINATION: Vitals reviewed LUNGS: Clear to auscultation, anteriorly HEART: Regular rate and rhythm, S1, S2. No S3. No systolic murmur ABDOMEN: Soft, positive bowel sounds, ascites, no organomegaly EXTREMETIES: 2+ edema IMPRESSION: 1. Acute respiratory failure with multilobar bilateral pneumonia, requiring mechanical ventilation 2. Cardiomyopathy by echocardiogram with ejection fraction of 30 to 35%, could be acute related to the infectious process vs possible alcohol induced 3. History of cirrhosis and recurrent ascites related to a prior history of alcohol intake. Patient has not been drinking for 5 years 4. Chronic tobacco use 5. MARANDA, improved PLAN: Patient is off of vasopressors and continues of appear volume overloaded. Continue with diuretics. Continue with metoprolol for now and possibly add an giotensin receptor megan however at this time blood pressure is borderline and continue current regimen. Objective - Vital Signs Vital signs: Vital Signs Temp 98.9 F 10/16/23 08:00 Pulse 71 10/16/23 14:30 Resp 22 10/16/23 14:30 BP 91/57 10/16/23 14:30 Pulse Ox 94 L 10/16/23 14:30 FiO2 40 10/16/23 14:00 Intake & Output 10/15/23 10/16/23 10/16/23 18:59 06:59 18:59 Intake Total 6143.468 7559.358 756.341 Output Total 1415 1120 1075 Balance 91.000 370.358 -318.659 Weight 81.9 kg 81.9 kg Intake: IV 391 172 278 .9 pressure bag 66 72 48 0.9 Sodium Chloride 80 Dextrose 5%-0.45% NaCl 1, 150 000 ml @ 50 mls/hr IV . Q20H [facility] Rx#:[id number] Piperacillin-Tazobactam 3 100 100 .375 gm In Sodium Chloride 0.9% 100 ml @ 25 mls/hr IVPB Q8HR [facility] Rx# :[id number] Sodium Chloride 0.9% 1, 225 000 ml @ 50 mls/hr IV . Q20H [facility] Rx#:[id number] Intake, IV Titration 700.000 808.358 138.341 Amount Dextrose 5%-0.45% NaCl 1, 600 625 50 000 ml @ 50 mls/hr IV . Q20H [facility] Rx#:[id number] propofoL 1,000 mg In 100.000 183.358 88.341 Empty Bag 1 bag @ 15 MCG/ KG/MIN 4.899 mls/hr IV . [id number] [facility] Rx#:[id number] Tube Feeding 385 420 280 Other 30 90 60 Output: Urine 1415 1120 1075 Other: Voiding Method Indwelling Catheter Indwelling Catheter Indwelling Catheter # Bowel Movements 1 ABP, PAP, CO, CI - Last Documented Arterial Blood Pressure 103/49 - Labs CBC & Chem 7: 10/16/23 03:53 10/16/23 03:53 Labs: Abnormal Lab Results - Last 24 Hours (Table) 10/15/23 10/15/23 10/15/23 Range/Units 15:55 19:34 23:15 WBC (3.8-10.6) k/uL RBC (3.80-5.40) m/uL Hgb (11.4-16.0) gm/dL Hct (34.0-46.0) % MCV (80.0-100.0) fL MCHC (31.0-37.0) g/dL RDW (11.5-15.5) % Plt Count (150-450) k/uL Neutrophils # (1.3-7.7) k/uL Lymphocytes # (1.0-4.8) k/uL Macrocytosis PT (10.0-12.5) sec INR (<1.2) ABG pH (7.35-7.45) ABG pCO2 (35-45) mmHg ABG Total CO2 (19-24) mmol/L ABG O2 Saturation (94-97) % Chloride (98-107) mmol/L BUN (7-17) mg/dL Glucose (74-99) mg/dL POC Glucose (mg/dL) 220 H 197 H 215 H (70-110) mg/dL Calcium (8.4-10.2) mg/dL Total Bilirubin (0.2-1.3) mg/dL Delta Bilirubin (0.0-0.2) mg/dL AST (14-36) U/L ALT (4-34) U/L Albumin (3.5-5.0) g/dL 10/16/23 10/16/23 10/16/23 Range/Units 03:52 03:53 03:53 WBC 24.8 H (3.8-10.6) k/uL RBC 2.71 L (3.80-5.40) m/uL Hgb 8.7 L (11.4-16.0) gm/dL Hct 28.8 L (34.0-46.0) % MCV 106.1 H (80.0-100.0) fL MCHC 30.3 L (31.0-37.0) g/dL RDW 21.3 H (11.5-15.5) % Plt Count 98 L (150-450) k/uL Neutrophils # 22.8 H (1.3-7.7) k/uL Lymphocytes # 0.8 L (1.0-4.8) k/uL Macrocytosis Marked A PT (10.0-12.5) sec INR (<1.2) ABG pH (7.35-7.45) ABG pCO2 (35-45) mmHg ABG Total CO2 (19-24) mmol/L ABG O2 Saturation (94-97) % Chloride 114 H (98-107) mmol/L BUN 39 H (7-17) mg/dL Glucose 195 H (74-99) mg/dL POC Glucose (mg/dL) 214 H (70-110) mg/dL Calcium 8.3 L (8.4-10.2) mg/dL Total Bilirubin 3.0 H (0.2-1.3) mg/dL Delta Bilirubin 2.0 H (0.0-0.2) mg/dL AST 89 H (14-36) U/L ALT 73 H (4-34) U/L Albumin 2.6 L (3.5-5.0) g/dL 10/16/23 10/16/23 10/16/23 Range/Units 06:13 07:48 09:08 WBC (3.8-10.6) k/uL RBC (3.80-5.40) m/uL Hgb (11.4-16.0) gm/dL Hct (34.0-46.0) % MCV (80.0-100.0) fL MCHC (31.0-37.0) g/dL RDW (11.5-15.5) % Plt Count (150-450) k/uL Neutrophils # (1.3-7.7) k/uL Lymphocytes # (1.0-4.8) k/uL Macrocytosis PT 16.1 H (10.0-12.5) sec INR 1.6 H (<1.2) ABG pH 7.49 H (7.35-7.45) ABG pCO2 34 L (35-45) mmHg ABG Total CO2 27 H (19-24) mmol/L ABG O2 Saturation 97.1 H (94-97) % Chloride (98-107) mmol/L BUN (7-17) mg/dL Glucose (74-99) mg/dL POC Glucose (mg/dL) 181 H (70-110) mg/dL Calcium (8.4-10.2) mg/dL Total Bilirubin (0.2-1.3) mg/dL Delta Bilirubin (0.0-0.2) mg/dL AST (14-36) U/L ALT (4-34) U/L Albumin (3.5-5.0) g/dL 10/16/23 Range/Units 12:30 WBC (3.8-10.6) k/uL RBC (3.80-5.40) m/uL Hgb (11.4-16.0) gm/dL Hct (34.0-46.0) % MCV (80.0-100.0) fL MCHC (31.0-37.0) g/dL RDW (11.5-15.5) % Plt Count (150-450) k/uL Neutrophils # (1.3-7.7) k/uL Lymphocytes # (1.0-4.8) k/uL Macrocytosis PT (10.0-12.5) sec INR (<1.2) ABG pH (7.35-7.45) ABG pCO2 (35-45) mmHg ABG Total CO2 (19-24) mmol/L ABG O2 Saturation (94-97) % Chloride (98-107) mmol/L BUN (7-17) mg/dL Glucose (74-99) mg/dL POC Glucose (mg/dL) 122 H (70-110) mg/dL Calcium (8.4-10.2) mg/dL Total Bilirubin (0.2-1.3) mg/dL Delta Bilirubin (0.0-0.2) mg/dL AST (14-36) U/L ALT (4-34) U/L Albumin (3.5-5.0) g/dL Microbiology - Last 24 Hours (Table) 10/12/23 10:07 Anaerobic Culture - Final Paracentesis Fluid 10/12/23 10:07 Gram Stain - Final Ascites Fluid Body Fluid Culture - Final
[2023-10-16] MEDS: FUROSEMIDE 10 MG/ML 4 ML VIAL IV SCH (17:22)
[2023-10-16 17:27] LABS: Glucose,Whole Blood 181 mg/dL (70-110)
[2023-10-16 19:59] LABS: Glucose,Whole Blood 184 mg/dL (70-110)
[2023-10-16 23:52] LABS: Glucose,Whole Blood 211 mg/dL (70-110)
[2023-10-17 04:25] LABS: Glucose,Whole Blood 274 mg/dL (70-110)
[2023-10-17 05:42] LABS: Anisocytosis Moderate; HCT 29.1 % (34.0-46.0); HGB 8.8 gm/dL (11.4-16.0); Hypochromasia Marked; MCH 32.1 pg (25.0-35.0); MCHC 30.3 g/dL (31.0-37.0); MCV 105.9 fL (80.0-100.0); Macrocytosis Marked; Mean Platelet Volume 10.5; RBC 2.75 m/uL (3.80-5.40); RDW 21.7 % (11.5-15.5); WBC 36.1 k/uL (3.8-10.6)
[2023-10-17 05:51] LABS: Platelet Count 99 k/uL (150-450)
[2023-10-17 05:55] LABS: ALT 91 U/L (4-34); AST 110 U/L (14-36); African American GFR (CKD) >90 (>60 ml/min/1.73 sqM); Albumin 2.6 g/dL (3.5-5.0); Alkaline Phosphatase 128 U/L (38-126); Anion Gap 8 mmol/L; Blood Urea Nitrogen 40 mg/dL (7-17); Carbon Dioxide 27 mmol/L (22-30); Chloride 109 mmol/L (98-107); Glucose 270 mg/dL (74-99); Non-African American GFR(CKD) >90 (>60 ml/min/1.73 sqM); Potassium 3.2 mmol/L (3.5-5.1); Sodium 144 mmol/L (137-145); Total Protein 6.5 g/dL (6.3-8.2)
[2023-10-17 06:01] LABS: ABG Base Excess 4.3 mmol/L; ABG HCO3 27 mmol/L (21-25); ABG Oxygen Saturation 97.5 % (94-97); ABG PCO2 34 mmHg (35-45); ABG PH 7.51 (7.35-7.45); ABG PO2 86 mmHg (83-108); ABG TCO2 28 mmol/L (19-24); Allen Test Performed? Yes
[2023-10-17 06:25] LABS: Anisocytosis (M) Present; Lymphocytes # (M) 2.17 k/uL (1.0-4.8); Monocytes # (M) 1.08 k/uL (0-1.0); Neutrophils # (M) 33.21 k/uL (1.3-7.7); Neutrophils % (M) 92 %; Nucleated Red Blood Cells 0 /100 WBC (0-0); Polychromasia Present; Target Cells Present; Total Cells Counted 200
[2023-10-17] MEDS: POTASSIUM BICARBONATE/CIT AC 20 MEQ TABLET.EFF NG-TUBE SCH ×2 (06:30→15:09)
--- NOTE | 2023-10-17 08:39 | XR ---
EXAMINATION TYPE: XR chest 1V portable DATE OF EXAM: 10/17/2023 Comparison: 10/16/2023 Clinical History: 48-year-old female mechanical ventilation Findings: ET and NG tubes are satisfactory. Diffuse interstitial and patchy opacities persist but show slight i nterval improvement. Heart remains mildly enlarged. Impression: Ongoing diffuse interstitial and patchy opacities though with slight interval improvement.
[2023-10-17 09:36] LABS: Glucose,Whole Blood 221 mg/dL (70-110)
--- NOTE | 2023-10-17 11:56 | US ---
EXAMINATION TYPE: US abdomen limited DATE OF EXAM: 10/17/2023 COMPARISON: 10/12/2023 CLINICAL INDICATION: Female, 48 years old with history of Ascites; Intubated ICU patient with abd dis tention TECHNIQUE: The 4 abdominal quadrants were scanned for assessment of ascites fluid. FINDINGS: [employer] notes: Moderate fluid seen within abdomen IMPRESSION: Moderate abdominal ascites.
--- NOTE | 2023-10-17 12:01 | P.PN ---
Subjective Progress Note Date: 10/17/23 Principal diagnosis: Liver failure, respiratory failure. This is a pleasant 48-year-old female patient with a known history of alcoholism with subsequent cirrhosis and chronic pancreatitis. Quit drinking approximately 5 years ago. She does have chronic and ongoing tobacco dependence, anxiety/depression, gastroesophageal reflux disease. She has a 2 week history of initially a dry nonproductive cough that had progressed into a loose congested cough with shortness of breath. She presented here to the emergency room yesterday. DT scan of the abdomen and pelvis revealed patchy bilateral airspace consolidation consistent with multifocal lobar pneumonia. Hepatic steatosis. Abdominal ascites. Wall thickening of the small bowel, correlate for mild enteritis versus spontaneous bacterial peritonitis. CT angiogram ruled out pulmonary embolism. There is again noted patchy bilateral airspace consolidation consistent with multilobar pneumonia. Chest x-ray shows similar multifocal airspace opacities. Count 16.5. Hemoglobin 10.0. Platelets 188. INR 1.7. D-dimer 2.80. Sodium 132. Potassium 3.7. Bicarb 24. BUN 18. Creatinine 0.84. Glucose 270. Initial lactic acid 7.0. Currently 2.2. AST 113. ALT 68. Alk phos 208. ProBNP 2040. Lipase 49. Serum alcohol less than 10. Viral screen negative. She is seen today in consultation in the emergency department. She is currently resting on a stretcher. She is awake and alert. She is requiring 10 L high flow nasal cannula to maintain O2 saturations in the 90s. She drops into the 70s on room air. She was initiated on ceftriaxone and azithromycin azithromycin. NicoDerm patch in place. She received 3 L of fluid resuscitation. Normal saline at 100 ML's per hour. Patient with very today on 10/10/2023, I saw this patient yesterday on consultation, and recommended transferring the patient to the ICU after she was seen in the ER. Apparently the patient was transferred to the ICU, and early this morning her pulmonary status continued to deteriorate, patient developed worsening pulmonary edema with underlying pneumonia, patient did receive significant amount of fluids for her sepsis presentation, and she developed pulmonary edema in addition to her underlying pneumonia. She is now on assist- control rate of 20 tidal volume 350 FiO2 100% and PEEP of 10. ABG this morning showed a pO2 of 80 pCO2 43 pH of 7.34. Patient had an echocardiogram showed severe LV dysfunction with ejection fraction of 30%., There was no evidence of valvular heart disease. Considering the findings, Lasix was given at 60 mg IV push every 12 hours, patient remains empirically on Zosyn for pneumonia and for possible abdominal sepsis. She is yet to have paracentesis to rule out acute spontaneous peritonitis in the last 24 hours, patient developed worsening pulmonary edema, and worsening abdominal distention with worsening ascites. WBC count today is 26.6 hemoglobin is 10.3. Basic metabolic profile is relatively normal, renal profile is normal. Calcitonin level is 0.61. BNP yesterday was 2039, influenza and Legionella as well as RSV and COVID-19 screening came back all negative Reevaluated today on 10/11/2023, patient remains in the ICU, intubated and mechanically ventilated. Patient is on assist-control rate of 20 tidal volume 350 FiO2 50% PEEP of 12, ABG showed a pO2 of 128 pCO2 43 pH of 7.41, hence I dropped the PEEP down to 10 and FiO2 down to 45%. Chest x-ray is showing improvement in her pneumonia and improvement in her pulmonary edema. Urine output remains marginal at 25 to 30 cc/h, blood pressure remains marginal in spite of being on dobutamine remain at 2.5 mcg/kg/min norepinephrine at 0.15 mcg/kg/min propofol 40 mcg/kg/min, patient is also on IV fluids at KVO which I have increased today to 75 cc/h and patient remains on Zosyn empirically for pneumonia, and for possible peritonitis. Interventional radiology is delaying and not planning to do paracentesis at this point mostly because of patient's blood pressure is marginal. I will recommend vasopressin on this patient, and will likely discontinue dobutamine on this patient. I have discontinued her Lasix, and started IV fluid at 0.9 normal saline 75 cc/h will initiate nutritional support/vital HP today. Patient remains critically ill, but nonetheless she is improving, updated her family/father and mother at bedside on her condition. WBC count is 24.9 hemoglobin 9.6. WBC count is improving compared to yesterday basic metabolic profile is normal renal profile showed a BUN of 25 creatinine 1.10 slightly worse compared to admission creatinine of 0.64, and that is not surprising Patient was reevaluated today on 10/12/2023, remains in the ICU, intubated and mechanically ventilated, patient is on assist-control rate of 20 tidal volume 350 FiO2 45% PEEP of 10 ABG showed a pO2 of 88 pCO2 37 pH of 7.44. Urine output is marginal roughly 10 to 15 cc/h, hence I recommended a dose of Lasix to be given 40 mg IV push, will hold on fluid boluses since her chest x-ray is showing worsening interstitial edema, slightly worse compared to the chest x-ray she had yesterday. However the patient is now on lesser PEEP and she is on lesser FiO2. Scheduled to have paracentesis today. Patient is on vasopressin at 0.03, she is also on norepinephrine at 0.03 mcg/kg/min IV fluid at 75 cc/h in the form of 0.9 normal saline. Cultures of the blood remain negative, cultures from the peritoneal fluid will be pending once the patient undergoes paracentesis. Patient remains on Zosyn WBC count today is 24.6, improving hemoglobin is 9.1 basic metabolic profile is normal BUN is 40 creatinine 1.09, again her blood cultures are negative so far, Patient was noted today on 10/13/2023, remains in the ICU, intubated and me chanically ventilated. She is now on assist-control rate of 20 tidal volume 350 FiO2 35% PEEP is 10 ABG showed a pO2 of 148 pCO2 39 pH of 7.43 has significant improvement noted in her ABG and it is correlated with the improvement noted on the chest x-ray. I cut down the PEEP down to 5 and FiO2 was made 40%. Patient remains on vasopressin but she is off norepinephrine or vasopressin at 0.02 unit s/min, she is on propofol at 30 mcg/kg/min IV fluid remains at 75 cc/h vital HP at 35 cc/h. Her urine output has been marginal, fluid boluses were given about 1 L, if no improvement may at that point consider diuresing the patient. Remains on Zosyn empirically, cultures remain negative. Negative cultures also on the peritoneal fluid so far negative blood cultures WBC count is down to 25.4 hemoglobin 8.7, platelets are 1 27,000 basic metabolic profile is normal renal profile is acceptable with a BUN of 49 creat 1.03. Blood sugar a bit elevated at 178 chest x-ray continues to show improvement with mild interstitial edema/infiltrates Reevaluate today on 10/14/2023, remains in the ICU intubated and mechanically ventilated, patient is on assist-control rate of 20 tidal volume 350 FiO2 40% P EEP is 5 ABG showed a pO2 of 91 pCO2 35 pH of 7.45, hence no changes were made in her ventilator settings. Patient is now completely off pressors, off norepinephrine and off vasopressin, maintained on relatively low-dose of propofol at 20 mcg/kg/min, her IV fluid is running at 75 cc/h, chest x-ray showed mild interstitial edema/infiltrates, given Lasix and she put out 300 cc of urine almost within a short.. Of time after Lasix was given. Patient is having issues with residual from enteral feeding and I will hold the feeding for now temporarily. Remains on Zosyn, her endotracheal tube seems to be sitting high in the trachea and it will be advanced down about 2 cm. Chest x-ray again was reviewed and suggestive of mild interstitial edema. Ammonia level was checked because of her mental status and it seems to be normal her WBC count is coming down to 22.4 hemoglobin is 8.6. Basic metabolic profile is normal renal profile is normal and sugar is 163 sputum is positive for Marleni albicans, however this has no clinical significance at this point Patient was reevaluated today on 10/15/2023, remains in the ICU intubated and mechanically ventilated, patient is on assist-control rate of 20 tidal volume 350 FiO2 50% and PEEP of 5 ABG showed a pO2 of 81 pCO2 35 pH of 7.43. Chest x-ray today showed slight worsening of her interstitial edema, hence I am recommending Lasix again 40 mg IV push was given, and I am recommending Lasix to be given twice daily. Patient is receiving vital HP at 35 cc/h IV fluid at 75 cc/h and I will cut it down since the patient is developing intermittent CHF. Remains on propofol at 50 mcg/kg/min, her last echocardiogram showed ejection fraction of 30 to 35%. CBC is improving down to 21.8 hemoglobin is 8.6 platelets are 106 sodium is 145 hence we will change her IV fluid to D5 4 5, her bicarb is 19. BUN is 40 creatinine 0.71, overall the patient is improving, however unable to cut down sedation significantly as she becomes extremely agitated, did not tolerate Precedex when we tried Precedex couple of days ago. Intermittently the patient is requiring Ativan to keep her synchronous with the ventilator. Sending her chest x-ray appearance today, I am recommending diuretics and I am not recommending weaning at this point yet. I am cutting down her Solu-Medrol to 40 mg IV push every 12 hours keeping her on Lovenox 40 mg subcu daily for DVT prophylaxis. Doing Zosyn for her bilateral pneumonia on presentation. Progress note dated October 16, 2023. This is a 48-year-old female who was admitted to the hospital on October 08, with a diagnosis of pneumonia, heart failure, alcoholic liver disease, and ascites. The patient was intubated for respiratory failure on October 10, 2023. She remains on the mechanical ventilator. Settings include volume assist- control, rate 20, tidal volume 350, FiO2 40%, PEEP of 5. Blood gases show pO2 of 83, pCO2 of 34, and a pH of 7.49. This blood gas is consistent with a mild respiratory alkalosis. The patient is receiving propofol at 20 mcg/kg/min, and D5 with half-normal saline at 50 cc an hour. In addition, the patient is receiving vital high-protein at 35 cc an hour, which is goal. Labs include a white count of 24.8, hemoglobin 8.7, hematocrit 28.8, and a platelet count of 98,000. PT is 16.1 with an INR of 1.6. Sodium 144, potassium 3.9, chlorides 114, CO2 25, BUN 39, creatinine 0.71. Glucose is 122. Albumin is 2.6. AST is 89, ALT is 73. The patient's total bilirubin is 3.0. Microbiologic sampling is negative or pending. Chest x-ray shows some diffuse bilateral patchy airspace disease. Progress note dated October 17, 2023. This is a 48-year-old female who was admitted to the hospital on October 08, with a diagnosis of pneumonia, heart failure, alcoholic liver disease, and ascites. The patient was intubated for respiratory failure on October 10, 2023. She remains on the mechanical ventilator. Settings include volume assist- control, rate 20, tidal volume 350, FiO2 40%, and PEEP of 5. Blood gases show pO2 of 86, pCO2 34, pH is 7.51. This blood gas was consistent with a combined respiratory and metabolic alkalosis. The patient is on saline at KVO, and vital 1.2 at 40 cc an hour. Goal is 40 cc an hour. The patient will have a daily interruption of sedation and a spontaneous breathing trial, with a pressure support of 8 and CPAP of 5. White count is 36.1, hemoglobin 8.8, hematocrit 29.1, and platelet count 99,000. Sodium 144, potassium 3.2, chlorides 109, CO2 27, anion gap 8, BUN 40, creatinine 0.71. Albumin is 2.6. Total bilirubin is elevated at 3. AST is 110, and ALT is 91. Microbiology is pending are negative. Chest x-ray shows diffuse interstitial and patchy opacities throughout both lungs, which may be slightly improved. Abdominal ultrasound shows some moderate abdominal ascites. Objective - Vital Signs Vital signs: Vital Signs Temp 99 F 10/17/23 08:00 Pulse 88 10/17/23 11:00 Resp 24 10/17/23 11:00 BP 109/65 10/17/23 10:00 Pulse Ox 95 10/17/23 11:00 FiO2 40 10/17/23 11:00 Intake & Output 10/16/23 10/17/23 10/17/23 18:59 06:59 18:59 Intake Total 1038.000 929.807 323.664 Output Total 1965 1475 885 Balance -927.000 -545.193 -561.336 Weight 81.9 kg 79.9 kg Intake: IV 408 286 104 .9 pressure bag 78 66 24 0.9 Sodium Chloride 180 220 80 Dextrose 5%-0.45% NaCl 1, 150 000 ml @ 50 mls/hr IV . Q20H [facility] Rx#:[id number] Intake, IV Titration 150.000 163.807 29.664 Amount Dextrose 5%-0.45% NaCl 1, 50 000 ml @ 50 mls/hr IV . Q20H [facility] Rx#:[id number] propofoL 1,000 mg In 100.000 163.807 29.664 Empty Bag 1 bag @ 15 MCG/ KG/MIN 4.899 mls/hr IV . [id number] [facility] Rx#:[id number] Tube Feeding 420 420 160 Other 60 60 30 Output: Urine 1965 1475 885 Other: Voiding Method Indwelling Catheter Indwelling Catheter Indwelling Catheter # Bowel Movements 1 ABP, PAP, CO, CI - Last Documented Arterial Blood Pressure 112/45 - Exam No acute distress, sedated, with an orally placed NG tube, and endotracheal tube. HEENT examination is grossly unremarkable. Neck supple. Full range of motion. No adenopathy thyromegaly or neck vein distention. Cardiovascular examination reveals regular rhythm rate. S1-S2 normal. No S3 or S4. No discernible murmur noted. Heart rate is 88 bpm. Lungs reveal scattered bilateral rhonchi. Few scattered crackles noted. No wh eezes. Breath sounds are equal bilaterally. Saturations are 95 %. Abdomen soft, but distended, with likely ascites. No masses. Extremities are intact. No cyanosis or clubbing. Diffuse anasarca is noted. Skin is without rash or lesion. Neurologic examination cannot be assessed at this time. - Labs CBC & Chem 7: 10/17/23 05:20 10/17/23 05:20 Labs: Abnormal Lab Results - Last 24 Hours (Table) 10/16/23 10/16/23 10/16/23 Range/Units 12:30 17:26 19:57 WBC (3.8-10.6) k/uL RBC (3.80-5.40) m/uL Hgb (11.4-16.0) gm/dL Hct (34.0-46.0) % MCV (80.0-100.0) fL MCHC (31.0-37.0) g/dL RDW (11.5-15.5) % Plt Count (150-450) k/uL Neutrophils # (Manual) (1.3-7.7) k/uL Monocytes # (Manual) (0-1.0) k/uL Macrocytosis ABG pH (7.35-7.45) ABG pCO2 (35-45) mmHg ABG HCO3 (21-25) mmol/L ABG Total CO2 (19-24) mmol/L ABG O2 Saturation (94-97) % Potassium (3.5-5.1) mmol/L Chloride (98-107) mmol/L BUN (7-17) mg/dL Glucose (74-99) mg/dL POC Glucose (mg/dL) 122 H 181 H 184 H (70-110) mg/dL Calcium (8.4-10.2) mg/dL Total Bilirubin (0.2-1.3) mg/dL AST (14-36) U/L ALT (4-34) U/L Alkaline Phosphatase (38-126) U/L Albumin (3.5-5.0) g/dL 10/16/23 10/17/23 10/17/23 Range/Units 23:51 04:21 05:20 WBC 36.1 H (3.8-10.6) k/uL RBC 2.75 L (3.80-5.40) m/uL Hgb 8.8 L (11.4-16.0) gm/dL Hct 29.1 L (34.0-46.0) % MCV 105.9 H (80.0-100.0) fL MCHC 30.3 L (31.0-37.0) g/dL RDW 21.7 H (11.5-15.5) % Plt Count 99 L (150-450) k/uL Neutrophils # (Manual) 33.21 H (1.3-7.7) k/uL Monocytes # (Manual) 1.08 H (0-1.0) k/uL Macrocytosis Marked A ABG pH (7.35-7.45) ABG pCO2 (35-45) mmHg ABG HCO3 (21-25) mmol/L ABG Total CO2 (19-24) mmol/L ABG O2 Saturation (94-97) % Potassium (3.5-5.1) mmol/L Chloride (98-107) mmol/L BUN (7-17) mg/dL Glucose (74-99) mg/dL POC Glucose (mg/dL) 211 H 274 H (70-110) mg/dL Calcium (8.4-10.2) mg/dL Total Bilirubin (0.2-1.3) mg/dL AST (14-36) U/L ALT (4-34) U/L Alkaline Phosphatase (38-126) U/L Albumin (3.5-5.0) g/dL 10/17/23 10/17/23 10/17/23 Range/Units 05:20 05:58 09:35 WBC (3.8-10.6) k/uL RBC (3.80-5.40) m/uL Hgb (11.4-16.0) gm/dL Hct (34.0-46.0) % MCV (80.0-100.0) fL MCHC (31.0-37.0) g/dL RDW (11.5-15.5) % Plt Count (150-450) k/uL Neutrophils # (Manual) (1.3-7.7) k/uL Monocytes # (Manual) (0-1.0) k/uL Macrocytosis ABG pH 7.51 H (7.35-7.45) ABG pCO2 34 L (35-45) mmHg ABG HCO3 27 H (21-25) mmol/L ABG Total CO2 28 H (19-24) mmol/L ABG O2 Saturation 97.5 H (94-97) % Potassium 3.2 L (3.5-5.1) mmol/L Chloride 109 H (98-107) mmol/L BUN 40 H (7-17) mg/dL Glucose 270 H (74-99) mg/dL POC Glucose (mg/dL) 221 H (70-110) mg/dL Calcium 8.0 L (8.4-10.2) mg/dL Total Bilirubin 3.0 H (0.2-1.3) mg/dL AST 110 H (14-36) U/L ALT 91 H (4-34) U/L Alkaline Phosphatase 128 H (38-126) U/L Albumin 2.6 L (3.5-5.0) g/dL Microbiology - Last 24 Hours (Table) 10/12/23 10:07 Anaerobic Culture - Final Paracentesis Fluid 10/12/23 10:07 Gram Stain - Final Ascites Fluid Body Fluid Culture - Final Assessment and Plan Assessment: Acute hypoxemic respiratory failure, secondary to bilateral pneumonia, as well as some fluid overload/CHF, status post intubation and mechanical ventilation on October 10, 2023. Acute pulmonary edema, cardiogenic in origin, with an ejection fraction of 20%. Ascites, status post paracentesis abdominis. History of liver cirrhosis, related to alcohol abuse. History of chronic pancreatitis. History of anxiety/depression. Tobacco dependence syndrome. Plan: Plan dated October 16, 2023. The patient continues on ventilatory support, but the patient will have a daily interruption of sedation. Previously, with DIS, the patient becomes acutely agitated, with abnormalities in her vital signs. The patient's Lasix based on her chest x-ray, will be increased to 40 mg every 8 hours. Labs, x-rays, and medications are all reviewed. The patient's overall prognosis remains very guarded. She has diffuse edema and anasarca. The patient remains on propofol at 20 mcg/kg/min, and D5 with half-normal saline at 50 cc an hour, which I told the nurse that she can discontinue. She does continue on vital high-protein at 35 cc an hour, which is her goal. We will continue to follow the patient, make recommendations along the way. The patient's overall prognosis remains very guarded. Plan dated October 17, 2023. The patient will be given a daily interruption of sedation and spontaneous odell thing trial, on a pressure support of 8 cmH2O, and CPAP of 5 cm of water. Propofol will be held. She continues on tube feedings. I had a long conversation with the parents yesterday. Labs, x-rays, medications are reviewed. The patient's overall prognosis remains guarded. Her swelling is a bit improved. Her chest x-ray is a bit improved. We did increase the Lasix up to every 8 hours. We will continue to follow make recommendations along the way. Time with Patient: Greater than 30
--- NOTE | 2023-10-17 12:51 | P.PN ---
Subjective Patient is a 48-year-old female with a past medical history of severe alcohol abuse, quit 5 years ago, alcoholic liver cirrhosis and is on follow-up with her seat trimmer at [facility], IBS, anxiety/depression and presents to ER with complaints of worsening shortness of breath. Patient states that she has been having shortness of breath for the past week and a half and did get worse in the last few days. Patient tried using her breathing treatments at home but did not get improvement. Patient was recently given antibiotics and prednisone by her physician. She has been increasingly weak and not feeling well. Patient presented to ER for evaluation. He was also complaining of cough without any sputum production. Also complaining of chest tightness and anxiety. Denies any leg swelling. No nausea or vomiting. Patient is also having increased abdominal girth. No prior history of paracentesis as per patient. Denies any fever at home. On admission patient was tachycardic and tachypneic and pulse ox 80% on room air. Currently requiring 8 L of oxygen via nasal cannula. CT of the abdomen pelvis showed patchy bilateral airspace consolidation consistent with multilobar pneumonia. Hepatic steatosis, abdominal ascites. Wa ll thickening of small bowel correlate for mild enteritis versus spontaneous bacterial peritonitis. CTA chest showed no PE. Patchy bilateral airspace consolidation consistent with multilobar pneumonia. Chest x-ray showed similar multifocal airspace opacities. Laboratory data showed WBC 16.5 hemoglobin 10.0 MCV 102.4 and platelets 188 and neutrophils 14.4 INR 1.7, D-dimer 2.8 Sodium 132 potassium 3.7 chloride 95 bicarbonate 24 BUN 18 and creatinine 0.84 and blood sugar 270 and lactic acid 7.0 on admission, calcium 8.1, total bilirubin level is 4.6 AST 113 ALT 68 and alk phos 208 Troponin 0.012 and proBNP 2040 and albumin 3.0 Influenza A, B, RSV and COVID-19 PCR not detected. 10/10/2023 Patient was transferred to MICU. Overnight patient's respiratory status worsened due to multifocal pneumonia and also patient is receiving fluids at 100 cc/h due to sepsis. Patient was intubated and is on assist-control. Patient is currently requiring pressor support. Chest x-ray this morning showed severe bilateral pulmonary infiltration which has worsened. Was given IV Lasix. 2D echocardiogram showed dilated LV and severe LV systolic dysfunction. Ejection fraction 30 to 35%. Laboratory showed WBC worsened to 26.6 hemoglobin 10.3 and platelets 190 Sodium 139 potassium 3.6 chloride 108 bicarb is 20 BUN 15 and creatinine 0.64 blood sugar 206 and A1c 6.8 lactic acid 5.4 this morning. Liver enzymes are elevated. Cardiology and pulmonary is on board. Patient is being continued on antibiotics changed to Zosyn. Procalcitonin level is elevated at 0.61. 10/11/2023 Patient is in the MICU. Intubated and sedated. On mechanical ventilator. Patient is also requiring pressor support with Levophed and also on dobutamine drip. Urine output remains low. Patient has been afebrile. Nutrition via NG tube. Patient was also started on IV hydration with normal saline at 75 cc/h. Chest x-ray showed multifocal airspace opacities are not significantly changed. Support tubes and proper positioning. Patient remains on antibiotics in the form of Zosyn. 2D echocardiogram showed left ventricular ejection fraction 30 to 35%. Mild right ventricular dilatation. Trace pericardial effusion and pleural effusion was identified. Laboratory data showed WBC 24.9 hemoglobin 9.6 and platelets 187 Sodium 137 potassium 4.2 chloride 102 bicarb is 26 BUN 25 and creatinine 1.1 and blood sugar 264. Patient is scheduled for paracentesis tomorrow. Blood cultures negative so far. Cardiology and pulmonary is on board. 10/12/2023 Patient is in the MICU. Remains intubated and sedated. On assist-control with respiratory of 20 tidal volume 350 and FiO2 40% and PEEP of 10. Continue to be on vasopressin and norepinephrine. Patient was also started on IV hydration with normal saline at 75 cc/h. Urine output is marginal. Patient remains on antibiotics Zosyn. Repeat chest x-ray this morning showed similar multifocal airspace opacities. Patient was given a dose of IV Lasix. Stable support tubes. Laboratory data showed WBC 24.6 hemoglobin 9.1 and platelets 144 BUN 40 and creatinine 1.09 and blood sugar is elevated at 312. Levemir dose increased to 12 units twice daily and continue with insulin sliding scale. Cardiology and critical care team is on board.Patient is scheduled to go for paracentesis today. 10/13/2023 Patient remains in the MICU. On assist-control with FiO2 35% and PEEP of 10. Tidal volume 350. Currently sedation is off. Chest x-ray showed stable exam mild pulmonary edema. Patient underwent ultrasound-guided paracentesis with 1800 cc clear straw- colored fluid drained. Pathology and culture is pending. Laboratory data showed WBC 25.4 hemoglobin 8.7 and platelets 127 BUN 49 creatinine 1.03 potassium 4.2 and blood sugar 159. Patient is being current on IV Solu-Medrol 60 mg every 6 hourly and is also on antibiotics, Zosyn. 10/14/2023 Patient is a pleasant 48 years old female who presents with bilateral pneumonia with acute hypoxic respiratory failure requiring intubation and mechanical ventilation. CTA of the chest was negative for PE which is done secondary to high d-dimer, CT of the abdomen showing thickened small bowel loops suspicious for enteritis, patient currently covered with Zosyn ProBNP is elevated 2039, chest x-ray showing mild was for congestion and ejection fraction is 30-35% patient is receiving IV Lasix and She Is Intubated. She Is Also on Salmeterol 60 Mg for Possible Acute COPD Exacerbation. Patient on Insulin Levemir 12 Units Twice Daily She Has Decompensated Liver Cirrhosis Status Post Paracentesis on 10/12 Where 1800 ML of Fluid Aspirated Patient today undergoing sedation holiday with propofol was off since yesterday Patient got agitated and she was placed on Precedex as well as IV morphine with little help so far Discussed with the bedside nurse Patient could not tolerate CPAP earlier, currently continued on mechanical ventilation with P5 and FiO2 of 40% Family at bedside 10/15/2023 Patient remains in the ICU intubated and sedated Over the last 2 days she was undergoing sedation holiday and propofol was stopped Today she was more agitated and she was placed back on a propofol Pulmonary level yesterday was 20 but given her worsening mentation we ordered a repeat ammonia level and KUB for abdomen slightly distended She had paracentesis related to her decompensated liver cirrhosis about 3 days ago with 1800 mL of fluid taken out We going to order a KUB but possible patient will require more paracentesis She received 1 dose of IV Lasix Normal saline 75 mL output 250 mL/h She remains on Zosyn and Solu-Medrol 60 mg Discussed with the bedside nurse 10/16/2023 Patient remains in the ICU intubated and sedated Yesterday after on repeat chest x-ray showing pulmonary congestion IV fluids of normal saline 50 mL was stopped and patient was started on IV Lasix 40 mg every 8 hours Repeat chest x-ray this morning testosterone pulmonary congestion, KUB showing nonobstructive pattern most likely patient has ascites related to her liver cirrhosis. Also patient placed on low-dose Lopressor suffers a percent respiratory blood pressure Metoprolol 25 mg 3 times a day per Sanitation Manager This she swelling is on board and patient glucose is controlled. 10/17/2023 Patient is from his ICU sedated and intubated. Today propofol was stopped and patient could follow command Weaning trial is attempting and patient was replaced back on before meals mode because of her tachypnea Also patient is planned to undergo paracentesis so between today and tomorrow for her ascites related to her liver cirrhosis. Extremities without obvious on Medrol 40 mg, Zosyn, IV Lasix 40 mg every 8 hours. Active Medications Generic Name Dose Route Start Last Admin Trade Name Freq PRN Reason Stop Dose Admin Albuterol/Ipratropium 3 ml 10/09/23 12:00 10/16/23 08:04 Ipratropium-Albuterol 3 Ml Neb INHALATION 3 ml RT-Q4H ELIESER Administration Budesonide 1 mg 10/09/23 20:00 10/16/23 08:04 Budesonide 1 Mg/2 Ml Nebu INHALATION 1 mg RT-BID ELIESER Administration Chlorhexidine Gluconate 15 ml 10/10/23 09:00 10/16/23 09:05 Chlorhexidine Gluconate 15 Ml Cup MUCOUS MEM 15 ml BID ELIESER Administration Dextrose/Water 25 ml 10/09/23 10:20 Dextrose 50% Syringe 50 Ml IVP PER PROTOCOL PRN Hypoglycemia Protocol Dextrose/Water 50 ml 10/09/23 10:20 Dextrose 50% Syringe 50 Ml IVP PER PROTOCOL PRN Hypoglycemia Protocol Enoxaparin Sodium 40 mg 10/13/23 09:00 10/16/23 09:05 Enoxaparin 40 Mg/0.4 Ml Syringe SQ 40 mg DAILY ELIESER Administration Folic Acid 1 mg 10/09/23 09:00 10/16/23 09:19 Folic Acid 1 Mg Tab PO 1 mg DAILY ELIESER Administration Formoterol Fumarate 20 mcg 10/09/23 20:00 10/16/23 08:04 Formoterol Fumarate 20 Mcg/2 Ml Nebu INHALATION 20 mcg RT-BID ELIESER Administration Furosemide 40 mg 10/16/23 16:00 Furosemide 10 Mg/Ml 4 Ml Vial IV Q8HR ELIESER Propofol 1,000 mg/ IV Solution 100 mls @ 4.899 mls/hr 10/10/23 06:00 10/16/23 10:44 IV 20 mcg/kg/min .[id number] ELIESER 6.532 mls/hr Titration Protocol 15 MCG/KG/MIN Norepinephrine Bitartrate 4 mg 254 mls @ 6.221 mls/hr 10/10/23 06:15 10/16/23 07:48 / Sodium Chloride IV Not Given .Q24H ELIESER Protocol 0.03 MCG/KG/MIN Piperacillin Sod/Tazobactam 100 mls @ 25 mls/hr 10/10/23 16:00 10/16/23 09:10 Sod 3.375 gm/ Sodium Chloride IVPB 25 mls/hr Q8HR ELIESER Administration Protocol Vasopressin 20 unit/ Sodium 51 mls @ 4.59 mls/hr 10/11/23 09:30 10/16/23 00:55 Chloride IV Not Given .[id number] ELIESER Protocol 0.03 UNITS/MIN Dexmedetomidine HCl 400 mcg/ 100 mls @ 3.96 mls/hr 10/14/23 13:45 10/15/23 14:00 IV Solution IV Not Given .Q24H ELIESER Protocol 0.2 MCG/KG/HR Insulin Aspart 0 unit 10/12/23 04:00 10/16/23 09:04 Insulin Aspart (Novolog) 100 Unit/Ml Vial SQ 3 unit Q4H ELIESER Administration Protocol Insulin Detemir 12 unit 10/12/23 10:45 10/16/23 09:04 Insulin Detemir (Levemir) 100 Unit/Ml Syr SQ 12 unit BID ELIESER Administration Lorazepam 1 mg 10/08/23 20:24 10/15/23 17:54 Lorazepam 2 Mg/Ml Inj IV 1 mg Q2HR PRN Administration CIWA 8 or 9 Lorazepam 1 mg 10/08/23 20:24 10/10/23 04:45 Lorazepam 2 Mg/Ml Inj IV 1 mg Q1HR PRN Administration CIWA 10 to 15 Methylprednisolone Sodium Succinate 40 mg 10/15/23 21:00 10/16/23 09:01 Methylprednisolone Sod Succi 40 Mg/Ml 1 Ml Vial IV 40 mg Q12HR ELIESER Administration Metoprolol Tartrate 25 mg 10/15/23 09:00 10/16/23 09:17 Metoprolol Tartrate 25 Mg Tab PO 25 mg TID ELIESER Administration Miscellaneous Information 1 each 10/08/23 23:59 Pneumonia Protocol Utilized 1 Each Misc PO ONCE PRN Per Protocol Miscellaneous Information 1 each 10/10/23 07:06 Potassium Replacement Protocol 1 Each Misc MISCELLANE DAILY PRN Per Protocol Protocol Miscellaneous Information 1 each 10/15/23 08:52 Potassium Replacement Protocol 1 Each Misc MISCELLANE DAILY PRN Per Protocol Protocol Morphine Sulfate 4 mg 10/08/23 23:59 10/15/23 22:02 Morphine Sulfate 4 Mg/Ml Syringe IV 4 mg Q4HR PRN Administration Severe Pain (Scale 7 to 10) Multivitamins 1 each 10/09/23 09:00 10/16/23 09:17 Multivitamins, Thera 1 Each Tab PO 1 each DAILY ELIESER Administration Nicotine 1 patch 10/09/23 01:35 10/16/23 09:10 Nicotine 21mg/24hr Patch TRANSDERM 1 patch DAILY ELIESER Administration Ondansetron HCl 4 mg 10/08/23 23:59 10/09/23 18:29 Ondansetron 4 Mg/2 Ml Vial IVP 4 mg Q8HR PRN Administration Nausea And Vomiting Pantoprazole Sodium 80 mg 10/10/23 09:15 10/16/23 09:02 Pantoprazole 40 Mg/10 Ml Vial IVP 80 mg DAILY ELIESER Administration Paroxetine HCl 40 mg 10/09/23 21:00 10/15/23 20:18 Paroxetine 20 Mg Tab PO 40 mg HS ELIESER Administration Thiamine HCl 100 mg 10/09/23 09:00 10/16/23 09:17 Thiamine 100 Mg Tab PO 100 mg DAILY ELIESER Administration Objective - Vital Signs Vital signs: Vital Signs Temp 99 F 10/17/23 08:00 Pulse 87 10/17/23 12:13 Resp 24 10/17/23 11:00 BP 109/65 10/17/23 10:00 Pulse Ox 95 10/17/23 11:00 FiO2 40 10/17/23 12:11 Intake & Output 10/16/23 10/17/23 10/17/23 18:59 06:59 18:59 Intake Total 1038.000 929.807 323.664 Output Total 1965 9385 885 Balance -927.000 -545.193 -561.336 Weight 81.9 kg 79.9 kg Intake: IV 408 286 104 .9 pressure bag 78 66 24 0.9 Sodium Chloride 180 220 80 Dextrose 5%-0.45% NaCl 1, 150 000 ml @ 50 mls/hr IV . Q20H ELIESER Rx#:[id number] Intake, IV Titration 150.000 163.807 29.664 Amount Dextrose 5%-0.45% NaCl 1, 50 000 ml @ 50 mls/hr IV . Q20H ELIESER Rx#:[id number] propofoL 1,000 mg In 100.000 163.807 29.664 Empty Bag 1 bag @ 15 MCG/ KG/MIN 4.899 mls/hr IV . [id number] ELIESER Rx#:[id number] Tube Feeding 420 420 160 Other 60 60 30 Output: Urine 1965 1475 885 Other: Voiding Method Indwelling Catheter Indwelling Catheter Indwelling Catheter # Bowel Movements 1 ABP, PAP, CO, CI - Last Documented Arterial Blood Pressure 112/45 - Exam -GENERAL: The patient is intubated HEENT: Pupils are round and equally reacting to light. EOMI. No scleral icterus. No conjunctival pallor. Normocephalic, atraumatic. No pharyngeal erythema. No thyromegaly. CARDIOVASCULAR: S1 and S2 present. No murmurs, rubs, or gallops. PULMONARY: Chest is clear to auscultation, no wheezing , no crackles. ABDOMEN: Soft, nontender, nondistended, normoactive bowel sounds. No palpable organomegaly. MUSCULOSKELETAL: No joint swelling or deformity. EXTREMITIES: No cyanosis, clubbing, or pedal edema. NEUROLOGICAL: Gross neurological examination did not reveal any focal deficits. SKIN: No rashes. no petechiae. - Labs CBC & Chem 7: 10/17/23 05:20 10/17/23 12:14 Labs: Abnormal Lab Results - Last 24 Hours (Table) 10/16/23 10/16/23 10/16/23 Range/Units 17:26 19:57 23:51 WBC (3.8-10.6) k/uL RBC (3.80-5.40) m/uL Hgb (11.4-16.0) gm/dL Hct (34.0-46.0) % MCV (80.0-100.0) fL MCHC (31.0-37.0) g/dL RDW (11.5-15.5) % Plt Count (150-450) k/uL Neutrophils # (Manual) (1.3-7.7) k/uL Monocytes # (Manual) (0-1.0) k/uL Macrocytosis ABG pH (7.35-7.45) ABG pCO2 (35-45) mmHg ABG HCO3 (21-25) mmol/L ABG Total CO2 (19-24) mmol/L ABG O2 Saturation (94-97) % Potassium (3.5-5.1) mmol/L Chloride (98-107) mmol/L BUN (7-17) mg/dL Glucose (74-99) mg/dL POC Glucose (mg/dL) 181 H 184 H 211 H (70-110) mg/dL Calcium (8.4-10.2) mg/dL Total Bilirubin (0.2-1.3) mg/dL AST (14-36) U/L ALT (4-34) U/L Alkaline Phosphatase (38-126) U/L Albumin (3.5-5.0) g/dL 10/17/23 10/17/23 10/17/23 Range/Units 04:21 05:20 05:20 WBC 36.1 H (3.8-10.6) k/uL RBC 2.75 L (3.80-5.40) m/uL Hgb 8.8 L (11.4-16.0) gm/dL Hct 29.1 L (34.0-46.0) % MCV 105.9 H (80.0-100.0) fL MCHC 30.3 L (31.0-37.0) g/dL RDW 21.7 H (11.5-15.5) % Plt Count 99 L (150-450) k/uL Neutrophils # (Manual) 33.21 H (1.3-7.7) k/uL Monocytes # (Manual) 1.08 H (0-1.0) k/uL Macrocytosis Marked A ABG pH (7.35-7.45) ABG pCO2 (35-45) mmHg ABG HCO3 (21-25) mmol/L ABG Total CO2 (19-24) mmol/L ABG O2 Saturation (94-97) % Potassium 3.2 L (3.5-5.1) mmol/L Chloride 109 H (98-107) mmol/L BUN 40 H (7-17) mg/dL Glucose 270 H (74-99) mg/dL POC Glucose (mg/dL) 274 H (70-110) mg/dL Calcium 8.0 L (8.4-10.2) mg/dL Total Bilirubin 3.0 H (0.2-1.3) mg/dL AST 110 H (14-36) U/L ALT 91 H (4-34) U/L Alkaline Phosphatase 128 H (38-126) U/L Albumin 2.6 L (3.5-5.0) g/dL 10/17/23 10/17/23 Range/Units 05:58 09:35 WBC (3.8-10.6) k/uL RBC (3.80-5.40) m/uL Hgb (11.4-16.0) gm/dL Hct (34.0-46.0) % MCV (80.0-100.0) fL MCHC (31.0-37.0) g/dL RDW (11.5-15.5) % Plt Count (150-450) k/uL Neutrophils # (Manual) (1.3-7.7) k/uL Monocytes # (Manual) (0-1.0) k/uL Macrocytosis ABG pH 7.51 H (7.35-7.45) ABG pCO2 34 L (35-45) mmHg ABG HCO3 27 H (21-25) mmol/L ABG Total CO2 28 H (19-24) mmol/L ABG O2 Saturation 97.5 H (94-97) % Potassium (3.5-5.1) mmol/L Chloride (98-107) mmol/L BUN (7-17) mg/dL Glucose (74-99) mg/dL POC Glucose (mg/dL) 221 H (70-110) mg/dL Calcium (8.4-10.2) mg/dL Total Bilirubin (0.2-1.3) mg/dL AST (14-36) U/L ALT (4-34) U/L Alkaline Phosphatase (38-126) U/L Albumin (3.5-5.0) g/dL Microbiology - Last 24 Hours (Table) 10/12/23 10:07 Anaerobic Culture - Final Paracentesis Fluid 10/12/23 10:07 Gram Stain - Final Ascites Fluid Body Fluid Culture - Final Assessment and Plan Assessment: Acute hypoxic respiratory failure secondary to multifocal pneumonia and pulmonary edema. Patient is 8 L high flow oxygen--> intubated on mechanical ventilator. Pulmonary edema likely due to cardiogenic with low ejection fraction 30 to 35%. Acute HFrEF with ejection fraction 30 -45% Multifocal pneumonia Sepsis/septic shock secondary to above. off pressor support COPD with acute exacerbation Lactic acidosis 7.0 on admission Alcoholic liver cirrhosis Ascites Patient is status post paracentesis on 10/13/2023. Hepatic steatosis and hyperbilirubinemia and elevated liver enzymes History of severe alcohol abuse. Quit 5 years ago History of chronic pancreatitis Anxiety/depression Plan: Patient is on mechanical ventilator. Continued on antibiotics in the form of Zosyn. on IV Solu-Medrol and DuoNebs as needed. Postop IV fluids and start Lasix 40 mg IV Cardiology team is on the case Paracentesis Cardiology and critical care team is on board.Discussed with her mother at bedside in detail. DVT prophylaxis with Lovenox subcu GI prophylaxis Prognosis is guarded.
[2023-10-17] MEDS ORDERED: Potassium Replacement Protocol 1 EACH MISC MISCELLANE PRN (13:58)
[2023-10-17 15:14] LABS: Glucose,Whole Blood 224 mg/dL (70-110)
--- NOTE | 2023-10-17 15:55 | P.PN ---
Subjective PROGRESS NOTE The patient is a 48-year-old female with a history of chronic tobacco use, prior history of alcohol intake with liver cirrhosis, ascites and chronic pancreatitis who presented with symptoms of progressive dyspnea and was diagnosed with bilateral multilobar pneumonia, this morning she got more dyspneic requiring mechanical ventilation. Cardiology consultation was requested for possible CHF. The patient has no prior documented history of CAD. Her echocardiogram in 2019 showed a preserved systolic function. She is in sinus mechanism, on low-dose of norepinephrine. She has no evidence of malignant arrhythmia. On admission she had leukocytosis, elevated plasma lactic acid. Her troponin was less then 0.012 and her NT proBNP was 0. She was in sinus mechanism with sinus tachycardia and intermittent incomplete left bundle branch block that appears to be rate related. Her IVCD was not noted in 2019. The nursing staff have been suctioning greenish-yellowish sputum from her ET tube. September 10: The patient remains intubated and sedated. She is on IV dobutamine 2.5 mcg/kg/min in addition to norepinephrine. Her echocardiogram showed an impaired systolic function with an ejection fraction of 30 to 35%. Of note that the patient had a normal LV systolic function in 2019. She continues to be in sinus mechanism and sinus tachycardia. There is no evidence of malignant arrhythmia. Her urinary output is borderline on IV Lasix. Her chest x-ray shows improvement in her infiltrate. September 11: The patient remains intubated and sedated. Off dobutamine on the lower dose of norepinephrine and continues to be on vasopressin. She has been getting IV fluid at 75 cc an hour. Her urinary output is borderline. She is afebrile. She continues to be in sinus mechanism with no evidence of atrial fibrillation. She may undergo paracentesis today. 10/16 Patient seen and examined. Patient was previously receiving IV fluids however has been receiving more aggressive diuresis. Lasix was increased to 80 mg 3 times a day with good urine output. Creatinine has been stable. Remains on ventilator with FiO2 40% and PEEP of 5. Echo showed ejection fraction 30-35% 10/17 Patient seen and examined. Patient has been increased on Lasix up to 3 times a day and has had good urine output with -2 and half liters over last 24 hours. Echo showing decrease EF 30 to 35%. Blood pressure still borderline. Remains on ventilator. Undergoing paracentesis today. White blood cell count 36, Cr stable at 0.7. Medications: PHYSICAL EXAMINATION: Vitals reviewed LUNGS: Clear to auscultation, anteriorly HEART: Regular rate and rhythm, S1, S2. No S3. No systolic murmur ABDOMEN: Soft, positive bowel sounds, ascites, no organomegaly EXTREMETIES: 2+ edema IMPRESSION: 1. Acute respiratory failure with multilobar bilateral pneumonia, requiring mechanical ventilation 2. Cardiomyopathy by echocardiogram with ejection fraction of 30 to 35%, could be acute related to the infectious process vs possible alcohol induced 3. History of cirrhosis and recurrent ascites related to a prior history of alcohol intake. Patient has not been drinking for 5 years 4. Chronic tobacco use 5. MARANDA, improved PLAN: Patient is off of vasopressors and continues of appear volume overloaded. Continue with diuretics. Continue with metoprolol for now and possibly add angiotensin receptor megan however at this time blood pressure is borderline and continue current regimen. Objective - Vital Signs Vital signs: Vital Signs Temp 99.3 F 10/17/23 12:00 Pulse 80 10/17/23 15:00 Resp 22 10/17/23 15:00 BP 109/65 10/17/23 10:00 Pulse Ox 95 10/17/23 15:00 FiO2 40 10/17/23 15:00 Intake & Output 10/16/23 10/17/23 10/17/23 18:59 06:59 18:59 Intake Total 1038.000 929.807 620.386 Output Total 1965 1475 1385 Balance -927.000 -545.193 -764.614 Weight 81.9 kg 79.9 kg Intake: IV 408 286 208 .9 pressure bag 78 66 48 0.9 Sodium Chloride 180 220 160 Dextrose 5%-0.45% NaCl 1, 150 000 ml @ 50 mls/hr IV . Q20H ELIESER Rx#:[id number] Intake, IV Titration 150.000 163.807 32.386 Amount Dextrose 5%-0.45% NaCl 1, 50 000 ml @ 50 mls/hr IV . Q20H ELIESER Rx#:[id number] propofoL 1,000 mg In 100.000 163.807 32.386 Empty Bag 1 bag @ 15 MCG/ KG/MIN 4.899 mls/hr IV . [id number] ELIESER Rx#:[id number] Tube Feeding 420 420 320 Other 60 60 60 Output: Urine 1965 1475 1385 Other: Voiding Method Indwelling Catheter Indwelling Catheter Indwelling Catheter # Bowel Movements 1 ABP, PAP, CO, CI - Last Documented Arterial Blood Pressure 110/49 - Labs CBC & Chem 7: 10/17/23 05:20 10/17/23 12:14 Labs: Abnormal Lab Results - Last 24 Hours (Table) 10/16/23 10/16/23 10/16/23 Range/Units 17:26 19:57 23:51 WBC (3.8-10.6) k/uL RBC (3.80-5.40) m/uL Hgb (11.4-16.0) gm/dL Hct (34.0-46.0) % MCV (80.0-100.0) fL MCHC (31.0-37.0) g/dL RDW (11.5-15.5) % Plt Count (150-450) k/uL Neutrophils # (Manual) (1.3-7.7) k/uL Monocytes # (Manual) (0-1.0) k/uL Macrocytosis ABG pH (7.35-7.45) ABG pCO2 (35-45) mmHg ABG HCO3 (21-25) mmol/L ABG Total CO2 (19-24) mmol/L ABG O2 Saturation (94-97) % Potassium (3.5-5.1) mmol/L Chloride (98-107) mmol/L BUN (7-17) mg/dL Glucose (74-99) mg/dL POC Glucose (mg/dL) 181 H 184 H 211 H (70-110) mg/dL Calcium (8.4-10.2) mg/dL Total Bilirubin (0.2-1.3) mg/dL AST (14-36) U/L ALT (4-34) U/L Alkaline Phosphatase (38-126) U/L Albumin (3.5-5.0) g/dL 10/17/23 10/17/23 10/17/23 Range/Units 04:21 05:20 05:20 WBC 36.1 H (3.8-10.6) k/uL RBC 2.75 L (3.80-5.40) m/uL Hgb 8.8 L (11.4-16.0) gm/dL Hct 29.1 L (34.0-46.0) % MCV 105.9 H (80.0-100.0) fL MCHC 30.3 L (31.0-37.0) g/dL RDW 21.7 H (11.5-15.5) % Plt Count 99 L (150-450) k/uL Neutrophils # (Manual) 33.21 H (1.3-7.7) k/uL Monocytes # (Manual) 1.08 H (0-1.0) k/uL Macrocytosis Marked A ABG pH (7.35-7.45) ABG pCO2 (35-45) mmHg ABG HCO3 (21-25) mmol/L ABG Total CO2 (19-24) mmol/L ABG O2 Saturation (94-97) % Potassium 3.2 L (3.5-5.1) mmol/L Chloride 109 H (98-107) mmol/L BUN 40 H (7-17) mg/dL Glucose 270 H (74-99) mg/dL POC Glucose (mg/dL) 274 H (70-110) mg/dL Calcium 8.0 L (8.4-10.2) mg/dL Total Bilirubin 3.0 H (0.2-1.3) mg/dL AST 110 H (14-36) U/L ALT 91 H (4-34) U/L Alkaline Phosphatase 128 H (38-126) U/L Albumin 2.6 L (3.5-5.0) g/dL 10/17/23 10/17/23 10/17/23 Range/Units 05:58 09:35 15:13 WBC (3.8-10.6) k/uL RBC (3.80-5.40) m/uL Hgb (11.4-16.0) gm/dL Hct (34.0-46.0) % MCV (80.0-100.0) fL MCHC (31.0-37.0) g/dL RDW (11.5-15.5) % Plt Count (150-450) k/uL Neutrophils # (Manual) (1.3-7.7) k/uL Monocytes # (Manual) (0-1.0) k/uL Macrocytosis ABG pH 7.51 H (7.35-7.45) ABG pCO2 34 L (35-45) mmHg ABG HCO3 27 H (21-25) mmol/L ABG Total CO2 28 H (19-24) mmol/L ABG O2 Saturation 97.5 H (94-97) % Potassium (3.5-5.1) mmol/L Chloride (98-107) mmol/L BUN (7-17) mg/dL Glucose (74-99) mg/dL POC Glucose (mg/dL) 221 H 224 H (70-110) mg/dL Calcium (8.4-10.2) mg/dL Total Bilirubin (0.2-1.3) mg/dL AST (14-36) U/L ALT (4-34) U/L Alkaline Phosphatase (38-126) U/L Albumin (3.5-5.0) g/dL Microbiology - Last 24 Hours (Table) 10/12/23 10:07 Anaerobic Culture - Final Paracentesis Fluid
[2023-10-17 16:46] LABS: Glucose,Whole Blood 224 mg/dL (70-110)
--- NOTE | 2023-10-17 17:22 | US ---
EXAMINATION TYPE: US paracentesis abd w/image DATE OF EXAM: 10/17/2023 CLINICAL HISTORY: 48-year-old female alcoholic cirrhosis with ascites, requested therapeutic paracen tesis in the ideal prior to extubation. The procedure was discussed with the patient's parents. The risks, complications, benefits, and alter natives were discussed and any questions were answered. Informed consent was obtained. The patient wa s placed supine on the ultrasound table and prepped and draped in the usual sterile fashion. All elements of maximal barrier technique were utilized. Ultrasound was utilized to determine the precise skin entry site along the right lower quadrant. A 5 [place] One-step catheter and trocar technique was utilized to access the ascites collection under direct ultrasound guidance. Approximately 3.2 liters of clear, straw-colored fluid was removed. Catheter was removed, hemostasis obtained, and a dressing placed. The patient was stable throughout the procedure and remained in ICU following the procedure. IMPRESSION: Successful therapeutic paracentesis under ultrasound guidance. 3.2 L of fluid removed.
[2023-10-17 20:44] LABS: Glucose,Whole Blood 244 mg/dL (70-110)
[2023-10-18 00:31] LABS: Glucose,Whole Blood 227 mg/dL (70-110)
[2023-10-18 04:25] LABS: Glucose,Whole Blood 176 mg/dL (70-110)
[2023-10-18 04:40] LABS: Anisocytosis Moderate; Basophils # (A) 0.1 k/uL (0-0.2); Basophils % (A) 0 %; Eosinophils % (A) 0 %; HCT 27.5 % (34.0-46.0); HGB 8.6 gm/dL (11.4-16.0); Hypochromasia Marked; Lymphocytes # (A) 1.1 k/uL (1.0-4.8); Lymphocytes % (A) 3 %; MCH 32.8 pg (25.0-35.0); MCHC 31.3 g/dL (31.0-37.0); MCV 104.8 fL (80.0-100.0); Mean Platelet Volume 11.7; Monocytes # (A) 1.2 k/uL (0-1.0); Monocytes % (A) 4 %; Neutrophils % (A) 92 %; RBC 2.62 m/uL (3.80-5.40); RDW 21.8 % (11.5-15.5); WBC 34.1 k/uL (3.8-10.6)
[2023-10-18 04:53] LABS: African American GFR (CKD) >90 (>60 ml/min/1.73 sqM); Anion Gap 3 mmol/L; Blood Urea Nitrogen 34 mg/dL (7-17); Carbon Dioxide 33 mmol/L (22-30); Chloride 106 mmol/L (98-107); Glucose 163 mg/dL (74-99); Magnesium 1.7 mg/dL (1.6-2.3); Non-African American GFR(CKD) >90 (>60 ml/min/1.73 sqM); Potassium 3.2 mmol/L (3.5-5.1); Sodium 142 mmol/L (137-145)
[2023-10-18] MEDS ORDERED: Magnesium Replacement Protocol 1 EACH MISC MISCELLANE PRN (05:02)
[2023-10-18] MEDS: POTASSIUM BICARBONATE/CIT AC 20 MEQ TABLET.EFF NG-TUBE SCH ×2 (05:31→09:31)
[2023-10-18 05:55] LABS: ABG Base Excess 11.5 mmol/L; ABG HCO3 34 mmol/L (21-25); ABG Oxygen Saturation 96.8 % (94-97); ABG PCO2 42 mmHg (35-45); ABG PH 7.52 (7.35-7.45); ABG PO2 81 mmHg (83-108); ABG TCO2 36 mmol/L (19-24); Allen Test Performed? Yes
[2023-10-18 05:57] LABS: Macrocytosis Marked; Platelet Count 78 k/uL (150-450)
[2023-10-18 05:58] LABS: Neutrophils # (A) 31.3 k/uL (1.3-7.7)
[2023-10-18] MEDS: MAGNESIUM SULFATE-D5W PMX 1 GM in DEXTROSE/WATER 1 100ML.BAG IVPB ONE (06:34)
[2023-10-18 08:10] LABS: Glucose,Whole Blood 209 mg/dL (70-110)
--- NOTE | 2023-10-18 09:10 | XR ---
EXAMINATION TYPE: XR chest 1V portable DATE OF EXAM: 10/18/2023 Comparison: 10/17/2023 Clinical History: 48-year-old female mechanical ventilation Findings: ET tube tip estimated at 1.9 cm from the jan. Pull back 5 mm in recess of follow-up. NG tube cours es below the diaphragm. Heart normal size. Diffuse interstitial densities persist but may show slight improvement. No pleural effusion. Impression: 1. ET tube tip 1.9 cm from the jan. Pullback 5 mm and reassess at follow-up. 2. Ongoing bilateral interstitial densities. These may be slightly improved from prior.
--- NOTE | 2023-10-18 11:23 | P.PN ---
Subjective Progress Note Date: 10/18/23 Principal diagnosis: Liver failure, respiratory failure. This is a pleasant 48-year-old female patient with a known history of alcoholism with subsequent cirrhosis and chronic pancreatitis. Quit drinking approximately 5 years ago. She does have chronic and ongoing tobacco dependence, anxiety/depression, gastroesophageal reflux disease. She has a 2 week history of initially a dry nonproductive cough that had progressed into a loose congested cough with shortness of breath. She presented here to the emergency room yesterday. DT scan of the abdomen and pelvis revealed patchy bilateral airspace consolidation consistent with multifocal lobar pneumonia. Hepatic steatosis. Abdominal ascites. Wall thickening of the small bowel, correlate for mild enteritis versus spontaneous bacterial peritonitis. CT angiogram ruled out pulmonary embolism. There is again noted patchy bilateral airspace consolidation consistent with multilobar pneumonia. Chest x-ray shows similar multifocal airspace opacities. Count 16.5. Hemoglobin 10.0. Platelets 188. INR 1.7. D-dimer 2.80. Sodium 132. Potassium 3.7. Bicarb 24. BUN 18. Creatinine 0.84. Glucose 270. Initial lactic acid 7.0. Currently 2.2. AST 113. ALT 68. Alk phos 208. ProBNP 2040. Lipase 49. Serum alcohol less than 10. Viral screen negative. She is seen today in consultation in the emergency department. She is currently resting on a stretcher. She is awake and alert. She is requiring 10 L high flow nasal cannula to maintain O2 saturations in the 90s. She drops into the 70s on room air. She was initiated on ceftriaxone and azithromycin azithromycin. NicoDerm patch in place. She received 3 L of fluid resuscitation. Normal saline at 100 ML's per hour. Patient with very today on 10/10/2023, I saw this patient yesterday on consultation, and recommended transferring the patient to the ICU after she was seen in the ER. Apparently the patient was transferred to the ICU, and early this morning her pulmonary status continued to deteriorate, patient developed worsening pulmonary edema with underlying pneumonia, patient did receive significant amount of fluids for her sepsis presentation, and she developed pulmonary edema in addition to her underlying pneumonia. She is now on assist- control rate of 20 tidal volume 350 FiO2 100% and PEEP of 10. ABG this morning showed a pO2 of 80 pCO2 43 pH of 7.34. Patient had an echocardiogram showed severe LV dysfunction with ejection fraction of 30%., There was no evidence of valvular heart disease. Considering the findings, Lasix was given at 60 mg IV push every 12 hours, patient remains empirically on Zosyn for pneumonia and for possible abdominal sepsis. She is yet to have paracentesis to rule out acute spontaneous peritonitis in the last 24 hours, patient developed worsening pulmonary edema, and worsening abdominal distention with worsening ascites. WBC count today is 26.6 hemoglobin is 10.3. Basic metabolic profile is relatively normal, renal profile is normal. Calcitonin level is 0.61. BNP yesterday was 2039, influenza and Legionella as well as RSV and COVID-19 screening came back all negative Reevaluated today on 10/11/2023, patient remains in the ICU, intubated and mechanically ventilated. Patient is on assist-control rate of 20 tidal volume 350 FiO2 50% PEEP of 12, ABG showed a pO2 of 128 pCO2 43 pH of 7.41, hence I dropped the PEEP down to 10 and FiO2 down to 45%. Chest x-ray is showing improvement in her pneumonia and improvement in her pulmonary edema. Urine output remains marginal at 25 to 30 cc/h, blood pressure remains marginal in spite of being on dobutamine remain at 2.5 mcg/kg/min norepinephrine at 0.15 mcg/kg/min propofol 40 mcg/kg/min, patient is also on IV fluids at KVO which I have increased today to 75 cc/h and patient remains on Zosyn empirically for pneumonia, and for possible peritonitis. Interventional radiology is delaying and not planning to do paracentesis at this point mostly because of patient's blood pressure is marginal. I will recommend vasopressin on this patient, and will likely discontinue dobutamine on this patient. I have discontinued her Lasix, and started IV fluid at 0.9 normal saline 75 cc/h will initiate nutritional support/vital HP today. Patient remains critically ill, but nonetheless she is improving, updated her family/father and mother at bedside on her condition. WBC count is 24.9 hemoglobin 9.6. WBC count is improving compared to yesterday basic metabolic profile is normal renal profile showed a BUN of 25 creatinine 1.10 slightly worse compared to admission creatinine of 0.64, and that is not surprising Patient was reevaluated today on 10/12/2023, remains in the ICU, intubated and mechanically ventilated, patient is on assist-control rate of 20 tidal volume 350 FiO2 45% PEEP of 10 ABG showed a pO2 of 88 pCO2 37 pH of 7.44. Urine output is marginal roughly 10 to 15 cc/h, hence I recommended a dose of Lasix to be given 40 mg IV push, will hold on fluid boluses since her chest x-ray is showing worsening interstitial edema, slightly worse compared to the chest x-ray she had yesterday. However the patient is now on lesser PEEP and she is on lesser FiO2. Scheduled to have paracentesis today. Patient is on vasopressin at 0.03, she is also on norepinephrine at 0.03 mcg/kg/min IV fluid at 75 cc/h in the form of 0.9 normal saline. Cultures of the blood remain negative, cultures from the peritoneal fluid will be pending once the patient undergoes paracentesis. Patient remains on Zosyn WBC count today is 24.6, improving hemoglobin is 9.1 basic metabolic profile is normal BUN is 40 creatinine 1.09, again her blood cultures are negative so far, Patient was noted today on 10/13/2023, remains in the ICU, intubated and me chanically ventilated. She is now on assist-control rate of 20 tidal volume 350 FiO2 35% PEEP is 10 ABG showed a pO2 of 148 pCO2 39 pH of 7.43 has significant improvement noted in her ABG and it is correlated with the improvement noted on the chest x-ray. I cut down the PEEP down to 5 and FiO2 was made 40%. Patient remains on vasopressin but she is off norepinephrine or vasopressin at 0.02 unit s/min, she is on propofol at 30 mcg/kg/min IV fluid remains at 75 cc/h vital HP at 35 cc/h. Her urine output has been marginal, fluid boluses were given about 1 L, if no improvement may at that point consider diuresing the patient. Remains on Zosyn empirically, cultures remain negative. Negative cultures also on the peritoneal fluid so far negative blood cultures WBC count is down to 25.4 hemoglobin 8.7, platelets are 1 27,000 basic metabolic profile is normal renal profile is acceptable with a BUN of 49 creat 1.03. Blood sugar a bit elevated at 178 chest x-ray continues to show improvement with mild interstitial edema/infiltrates Reevaluate today on 10/14/2023, remains in the ICU intubated and mechanically ventilated, patient is on assist-control rate of 20 tidal volume 350 FiO2 40% P EEP is 5 ABG showed a pO2 of 91 pCO2 35 pH of 7.45, hence no changes were made in her ventilator settings. Patient is now completely off pressors, off norepinephrine and off vasopressin, maintained on relatively low-dose of propofol at 20 mcg/kg/min, her IV fluid is running at 75 cc/h, chest x-ray showed mild interstitial edema/infiltrates, given Lasix and she put out 300 cc of urine almost within a short.. Of time after Lasix was given. Patient is having issues with residual from enteral feeding and I will hold the feeding for now temporarily. Remains on Zosyn, her endotracheal tube seems to be sitting high in the trachea and it will be advanced down about 2 cm. Chest x-ray again was reviewed and suggestive of mild interstitial edema. Ammonia level was checked because of her mental status and it seems to be normal her WBC count is coming down to 22.4 hemoglobin is 8.6. Basic metabolic profile is normal renal profile is normal and sugar is 163 sputum is positive for Marleni albicans, however this has no clinical significance at this point Patient was reevaluated today on 10/15/2023, remains in the ICU intubated and mechanically ventilated, patient is on assist-control rate of 20 tidal volume 350 FiO2 50% and PEEP of 5 ABG showed a pO2 of 81 pCO2 35 pH of 7.43. Chest x-ray today showed slight worsening of her interstitial edema, hence I am recommending Lasix again 40 mg IV push was given, and I am recommending Lasix to be given twice daily. Patient is receiving vital HP at 35 cc/h IV fluid at 75 cc/h and I will cut it down since the patient is developing intermittent CHF. Remains on propofol at 50 mcg/kg/min, her last echocardiogram showed ejection fraction of 30 to 35%. CBC is improving down to 21.8 hemoglobin is 8.6 platelets are 106 sodium is 145 hence we will change her IV fluid to D5 4 5, her bicarb is 19. BUN is 40 creatinine 0.71, overall the patient is improving, however unable to cut down sedation significantly as she becomes extremely agitated, did not tolerate Precedex when we tried Precedex couple of days ago. Intermittently the patient is requiring Ativan to keep her synchronous with the ventilator. Sending her chest x-ray appearance today, I am recommending diuretics and I am not recommending weaning at this point yet. I am cutting down her Solu-Medrol to 40 mg IV push every 12 hours keeping her on Lovenox 40 mg subcu daily for DVT prophylaxis. Doing Zosyn for her bilateral pneumonia on presentation. Progress note dated October 16, 2023. This is a 48-year-old female who was admitted to the hospital on October 08, with a diagnosis of pneumonia, heart failure, alcoholic liver disease, and ascites. The patient was intubated for respiratory failure on October 10, 2023. She remains on the mechanical ventilator. Settings include volume assist- control, rate 20, tidal volume 350, FiO2 40%, PEEP of 5. Blood gases show pO2 of 83, pCO2 of 34, and a pH of 7.49. This blood gas is consistent with a mild respiratory alkalosis. The patient is receiving propofol at 20 mcg/kg/min, and D5 with half-normal saline at 50 cc an hour. In addition, the patient is receiving vital high-protein at 35 cc an hour, which is goal. Labs include a white count of 24.8, hemoglobin 8.7, hematocrit 28.8, and a platelet count of 98,000. PT is 16.1 with an INR of 1.6. Sodium 144, potassium 3.9, chlorides 114, CO2 25, BUN 39, creatinine 0.71. Glucose is 122. Albumin is 2.6. AST is 89, ALT is 73. The patient's total bilirubin is 3.0. Microbiologic sampling is negative or pending. Chest x-ray shows some diffuse bilateral patchy airspace disease. Progress note dated October 17, 2023. This is a 48-year-old female who was admitted to the hospital on October 08, with a diagnosis of pneumonia, heart failure, alcoholic liver disease, and ascites. The patient was intubated for respiratory failure on October 10, 2023. She remains on the mechanical ventilator. Settings include volume assist- control, rate 20, tidal volume 350, FiO2 40%, and PEEP of 5. Blood gases show pO2 of 86, pCO2 34, pH is 7.51. This blood gas was consistent with a combined respiratory and metabolic alkalosis. The patient is on saline at KVO, and vital 1.2 at 40 cc an hour. Goal is 40 cc an hour. The patient will have a daily interruption of sedation and a spontaneous breathing trial, with a pressure support of 8 and CPAP of 5. White count is 36.1, hemoglobin 8.8, hematocrit 29.1, and platelet count 99,000. Sodium 144, potassium 3.2, chlorides 109, CO2 27, anion gap 8, BUN 40, creatinine 0.71. Albumin is 2.6. Total bilirubin is elevated at 3. AST is 110, and ALT is 91. Microbiology is pending are negative. Chest x-ray shows diffuse interstitial and patchy opacities throughout both lungs, which may be slightly improved. Abdominal ultrasound shows some moderate abdominal ascites. Progress note dated October 18, 2023. 48-year-old female admitted to the hospital back on October 08, with a diagnosis of pneumonia, heart failure, alcoholic liver disease, and ascites. The patient remains on the mechanical ventilator. The patient was actually intubated on October 10. Current ventilator settings include volume assist-control, rate 20, tidal volume 350, FiO2 40%, PEEP of 5. Blood gases show pO2 of 81, pCO2 42, the pH is 7.52. The patient remains on propofol at 30 mcg/kg/min, and saline at KVO. She is getting vital 1.2 at 40 cc an hour, which is goal. Yesterday, she had a daily interruption of sedation with a spontaneous breathing trial, with a pressure support of 8 and CPAP of 5. She lasted about 2 hours. She did have a paracentesis abdominis yesterday, and 3.2 L was removed. White count is 34.1, hemoglobin 8.6, hematocrit 27.5, platelet count 78,000. Sodium 142, potassium 3.3, chlorides 106, CO2 33, BUN 34, creatinine 0.6. Calcium is 8. Culture data is thus far negative. Chest x-ray today, it is a bit improved, compared to the prior x-ray. Objective - Vital Signs Vital signs: Vital Signs Temp 98.3 F 10/18/23 08:00 Pulse 75 10/18/23 11:11 Resp 22 10/18/23 10:00 BP 90/55 10/18/23 10:00 Pulse Ox 96 10/18/23 10:00 FiO2 40 10/18/23 11:05 Intake & Output 10/17/23 10/18/23 10/18/23 18:59 06:59 18:59 Intake Total 916.000 976.269 226.920 Output Total 5200 1530 135 Balance -4284.000 -553.731 91.920 Weight 77 kg Intake: IV 286 312 78 .9 pressure bag 66 72 18 0.9 Sodium Chloride 220 240 60 Intake, IV Titration 100.000 164.269 38.920 Amount Norepinephrine 4 mg In 0 Sodium Chloride 0.9% 250 ml @ 0.03 MCG/KG/MIN 6. 221 mls/hr IV .Q24H [facility] Rx#:[id number] propofoL 1,000 mg In 100.000 164.269 38.920 Empty Bag 1 bag @ 15 MCG/ KG/MIN 4.899 mls/hr IV . [id number] [facility] Rx#:[id number] Tube Feeding 440 440 80 Other 90 60 30 Output: Drainage 3200 Abdomen 3200 Urine 2000 1530 135 Other: Voiding Method Indwelling Catheter Indwelling Catheter ABP, PAP, CO, CI - Last Documented Arterial Blood Pressure 137/65 - Exam No acute distress, sedated, with an orally placed NG tube, and endotracheal tube. HEENT examination is grossly unremarkable. Neck supple. Full range of motion. No adenopathy thyromegaly or neck vein distention. Cardiovascular examination reveals regular rhythm rate. S1-S2 normal. No S3 or S4. No discernible murmur noted. Heart rate is 75 bpm. Lungs reveal scattered bilateral rhonchi. Few scattered crackles noted. No wheezes. Breath sounds are equal bilaterally. Saturations are 96 %. Abdomen soft, but distended, with likely ascites. No masses. The abdomen is less distended today. Extremities are intact. No cyanosis or clubbing. Diffuse anasarca is noted. Skin is without rash or lesion. Neurologic examination cannot be assessed at this time. - Labs CBC & Chem 7: 10/18/23 04:24 10/18/23 08:05 Labs: Abnormal Lab Results - Last 24 Hours (Table) 10/17/23 10/17/23 10/17/23 Range/Units 15:13 16:45 20:42 WBC (3.8-10.6) k/uL RBC (3.80-5.40) m/uL Hgb (11.4-16.0) gm/dL Hct (34.0-46.0) % MCV (80.0-100.0) fL RDW (11.5-15.5) % Plt Count (150-450) k/uL Neutrophils # (1.3-7.7) k/uL Monocytes # (0-1.0) k/uL Macrocytosis ABG pH (7.35-7.45) ABG pO2 (83-108) mmHg ABG HCO3 (21-25) mmol/L ABG Total CO2 (19-24) mmol/L Potassium (3.5-5.1) mmol/L Carbon Dioxide (22-30) mmol/L BUN (7-17) mg/dL Glucose (74-99) mg/dL POC Glucose (mg/dL) 224 H 224 H 244 H (70-110) mg/dL Calcium (8.4-10.2) mg/dL 10/18/23 10/18/23 10/18/23 Range/Units 00:30 04:23 04:24 WBC 34.1 H (3.8-10.6) k/uL RBC 2.62 L (3.80-5.40) m/uL Hgb 8.6 L (11.4-16.0) gm/dL Hct 27.5 L (34.0-46.0) % MCV 104.8 H (80.0-100.0) fL RDW 21.8 H (11.5-15.5) % Plt Count 78 L (150-450) k/uL Neutrophils # 31.3 H (1.3-7.7) k/uL Monocytes # 1.2 H (0-1.0) k/uL Macrocytosis Marked A ABG pH (7.35-7.45) ABG pO2 (83-108) mmHg ABG HCO3 (21-25) mmol/L ABG Total CO2 (19-24) mmol/L Potassium (3.5-5.1) mmol/L Carbon Dioxide (22-30) mmol/L BUN (7-17) mg/dL Glucose (74-99) mg/dL POC Glucose (mg/dL) 227 H 176 H (70-110) mg/dL Calcium (8.4-10.2) mg/dL 10/18/23 10/18/23 10/18/23 Range/Units 04:24 05:51 08:05 WBC (3.8-10.6) k/uL RBC (3.80-5.40) m/uL Hgb (11.4-16.0) gm/dL Hct (34.0-46.0) % MCV (80.0-100.0) fL RDW (11.5-15.5) % Plt Count (150-450) k/uL Neutrophils # (1.3-7.7) k/uL Monocytes # (0-1.0) k/uL Macrocytosis ABG pH 7.52 H (7.35-7.45) ABG pO2 81 L (83-108) mmHg ABG HCO3 34 H (21-25) mmol/L ABG Total CO2 36 H (19-24) mmol/L Potassium 3.2 L 3.3 L (3.5-5.1) mmol/L Carbon Dioxide 33 H (22-30) mmol/L BUN 34 H (7-17) mg/dL Glucose 163 H (74-99) mg/dL POC Glucose (mg/dL) (70-110) mg/dL Calcium 8.0 L (8.4-10.2) mg/dL 10/18/23 Range/Units 08:09 WBC (3.8-10.6) k/uL RBC (3.80-5.40) m/uL Hgb (11.4-16.0) gm/dL Hct (34.0-46.0) % MCV (80.0-100.0) fL RDW (11.5-15.5) % Plt Count (150-450) k/uL Neutrophils # (1.3-7.7) k/uL Monocytes # (0-1.0) k/uL Macrocytosis ABG pH (7.35-7.45) ABG pO2 (83-108) mmHg ABG HCO3 (21-25) mmol/L ABG Total CO2 (19-24) mmol/L Potassium (3.5-5.1) mmol/L Carbon Dioxide (22-30) mmol/L BUN (7-17) mg/dL Glucose (74-99) mg/dL POC Glucose (mg/dL) 209 H (70-110) mg/dL Calcium (8.4-10.2) mg/dL Assessment and Plan Assessment: Acute hypoxemic respiratory failure, secondary to bilateral pneumonia, as well as some fluid overload/CHF, status post intubation and mechanical ventilation on October 10, 2023. Acute pulmonary edema, cardiogenic in origin, with an ejection fraction of 20%. Ascites, status post paracentesis abdominis. History of liver cirrhosis, related to alcohol abuse. History of chronic pancreatitis. History of anxiety/depression. Tobacco dependence syndrome. Plan: Plan dated October 16, 2023. The patient continues on ventilatory support, but the patient will have a daily interruption of sedation. Previously, with DIS, the patient becomes acutely agitated, with abnormalities in her vital signs. The patient's Lasix based on her chest x-ray, will be increased to 40 mg every 8 hours. Labs, x-rays, and medications are all reviewed. The patient's overall prognosis remains very gu arded. She has diffuse edema and anasarca. The patient remains on propofol at 20 mcg/kg/min, and D5 with half-normal saline at 50 cc an hour, which I told the nurse that she can discontinue. She does continue on vital high-protein at 35 cc an hour, which is her goal. We will continue to follow the patient, make recommendations along the way. The patient's overall prognosis remains very guarded. Plan dated October 17, 2023. The patient will be given a daily interruption of sedation and spontaneous breathing trial, on a pressure support of 8 cmH2O, and CPAP of 5 cm of water. Propofol will be held. She continues on tube feedings. I had a long conversation with the parents yesterday. Labs, x-rays, medications are reviewed. The patient's overall prognosis remains guarded. Her swelling is a bit improved. Her chest x-ray is a bit improved. We did increase the Lasix up to every 8 hours. We will continue to follow make recommendations along the way. Plan dated October 18, 2023. The patient will again have another trial off the ventilator, on pressure support of 8 and CPAP of 5. Yesterday, she lasted about 2 hours. In addition, she underwent paracentesis abdominis yesterday, and 3.2 L of fluid was removed. She continues on propofol, and tube feedings. Blood gases are adequate and actually show a developing metabolic alkalosis. We will continue to follow make recommendations along the way. I did speak to the family about tracheostomy and PEG tube placement. That certainly is an option down the road if she does not show any improvement. Will see how she does with her daily interruption of sedation and spontaneous breathing trial today. Overall prognosis remains guarded. Time with Patient: Greater than 30
[2023-10-18 12:11] LABS: Glucose,Whole Blood 165 mg/dL (70-110)
[2023-10-18 13:58] LABS: ABG Base Excess 13.1 mmol/L; ABG HCO3 36 mmol/L (21-25); ABG Oxygen Saturation 96.7 % (94-97); ABG PCO2 45 mmHg (35-45); ABG PH 7.51 (7.35-7.45); ABG PO2 78 mmHg (83-108); ABG TCO2 38 mmol/L (19-24); Allen Test Performed? Yes
--- NOTE | 2023-10-18 15:53 | P.PN ---
Subjective PROGRESS NOTE The patient is a 48-year-old female with a history of chronic tobacco use, prior history of alcohol intake with liver cirrhosis, ascites and chronic pancreatitis who presented with symptoms of progressive dyspnea and was diagnosed with bilateral multilobar pneumonia, this morning she got more dyspneic requiring mechanical ventilation. Cardiology consultation was requested for possible CHF. The patient has no prior documented history of CAD. Her echocardiogram in 2019 showed a preserved systolic function. She is in sinus mechanism, on low-dose of norepinephrine. She has no evidence of malignant arrhythmia. On admission she had leukocytosis, elevated plasma lactic acid. Her troponin was less then 0.012 and her NT proBNP was 0. She was in sinus mechanism with sinus tachycardia and intermittent incomplete left bundle branch block that appears to be rate related. Her IVCD was not noted in 2019. The nursing staff have been suctioning greenish-yellowish sputum from her ET tube. September 10: The patient remains intubated and sedated. She is on IV dobutamine 2.5 mcg/kg/min in addition to norepinephrine. Her echocardiogram showed an impaired systolic function with an ejection fraction of 30 to 35%. Of note that the patient had a normal LV systolic function in 2019. She continues to be in sinus mechanism and sinus tachycardia. There is no evidence of malignant arrhythmia. Her urinary output is borderline on IV Lasix. Her chest x-ray shows improvement in her infiltrate. September 11: The patient remains intubated and sedated. Off dobutamine on the lower dose of norepinephrine and continues to be on vasopressin. She has been getting IV fluid at 75 cc an hour. Her urinary output is borderline. She is afebrile. She continues to be in sinus mechanism with no evidence of atrial fibrillation. She may undergo paracentesis today. 10/16 Patient seen and examined. Patient was previously receiving IV fluids however has been receiving more aggressive diuresis. Lasix was increased to 80 mg 3 times a day with good urine output. Creatinine has been stable. Remains on ventilator with FiO2 40% and PEEP of 5. Echo showed ejection fraction 30-35% 10/17 Patient seen and examined. Patient has been increased on Lasix up to 3 times a day and has had good urine output with -2 and half liters over last 24 hours. Echo showing decrease EF 30 to 35%. Blood pressure still borderline. Remains on ventilator. Undergoing paracentesis today. White blood cell count 36, Cr stable at 0.7. 1/31 Patient remains on Lasix IV 40 mg every 8 hours with almost 5 L output yesterday. She has been tolerating spontaneous breathing trial today and alert on ventilator and denies any chest pain or pressure. Creatinine stable. Blood pressures remain borderline however tolerating metoprolol. Medications: PHYSICAL EXAMINATION: Vitals reviewed LUNGS: Clear to auscultation, anteriorly HEART: Regular rate and rhythm, S1, S2. No S3. No systolic murmur ABDOMEN: Soft, positive bowel sounds, ascites, no organomegaly EXTREMETIES: 2+ edema IMPRESSION: 1. Acute respiratory failure with multilobar bilateral pneumonia, requiring mechanical ventilation 2. Cardiomyopathy by echocardiogram with ejection fraction of 30 to 35%, could be acute related to the infectious process vs possible alcohol induced 3. History of cirrhosis and recurrent ascites related to a prior history of alcohol intake. Patient has not been drinking for 5 years 4. Chronic tobacco use 5. MARANDA, improved PLAN: Patient is off of vasopressors and continues to be volume overloaded. Continue with diuretics Continue with metoprolol for now. No angiotensin receptor megan for now given blood pressure is borderline and continue current regimen. Wean vent as able Objective - Vital Signs Vital signs: Vital Signs Temp 98.2 F 10/18/23 12:00 Pulse 72 10/18/23 14:00 Resp 20 10/18/23 14:00 BP 88/52 10/18/23 14:00 Pulse Ox 97 10/18/23 14:18 FiO2 50 10/18/23 14:10 Intake & Output 10/17/23 10/18/23 10/18/23 18:59 06:59 18:59 Intake Total 916.000 976.269 304.920 Output Total 5200 1530 665 Balance -4284.000 -553.731 -360.080 Weight 77 kg 77 kg Intake: IV 286 312 156 .9 pressure bag 66 72 36 0.9 Sodium Chloride 220 240 120 Intake, IV Titration 100.000 164.269 38.920 Amount Norepinephrine 4 mg In 0 Sodium Chloride 0.9% 250 ml @ 0.03 MCG/KG/MIN 6. 221 mls/hr IV .Q24H [facility] Rx#:[id number] propofoL 1,000 mg In 100.000 164.269 38.920 Empty Bag 1 bag @ 15 MCG/ KG/MIN 4.899 mls/hr IV . [id number] [facility] Rx#:[id number] Tube Feeding 440 440 80 Other 90 60 30 Output: Drainage 3200 Abdomen 3200 Urine 2000 1530 665 Other: Voiding Method Indwelling Catheter Indwelling Catheter Indwelling Catheter ABP, PAP, CO, CI - Last Documented Arterial Blood Pressure 106/50 - Labs CBC & Chem 7: 10/18/23 04:24 10/18/23 08:05 Labs: Abnormal Lab Results - Last 24 Hours (Table) 10/17/23 10/17/23 10/18/23 Range/Units 16:45 20:42 00:30 WBC (3.8-10.6) k/uL RBC (3.80-5.40) m/uL Hgb (11.4-16.0) gm/dL Hct (34.0-46.0) % MCV (80.0-100.0) fL RDW (11.5-15.5) % Plt Count (150-450) k/uL Neutrophils # (1.3-7.7) k/uL Monocytes # (0-1.0) k/uL Macrocytosis ABG pH (7.35-7.45) ABG pO2 (83-108) mmHg ABG HCO3 (21-25) mmol/L ABG Total CO2 (19-24) mmol/L Potassium (3.5-5.1) mmol/L Carbon Dioxide (22-30) mmol/L BUN (7-17) mg/dL Glucose (74-99) mg/dL POC Glucose (mg/dL) 224 H 244 H 227 H (70-110) mg/dL Calcium (8.4-10.2) mg/dL 10/18/23 10/18/23 10/18/23 Range/Units 04:23 04:24 04:24 WBC 34.1 H (3.8-10.6) k/uL RBC 2.62 L (3.80-5.40) m/uL Hgb 8.6 L (11.4-16.0) gm/dL Hct 27.5 L (34.0-46.0) % MCV 104.8 H (80.0-100.0) fL RDW 21.8 H (11.5-15.5) % Plt Count 78 L (150-450) k/uL Neutrophils # 31.3 H (1.3-7.7) k/uL Monocytes # 1.2 H (0-1.0) k/uL Macrocytosis Marked A ABG pH (7.35-7.45) ABG pO2 (83-108) mmHg ABG HCO3 (21-25) mmol/L ABG Total CO2 (19-24) mmol/L Potassium 3.2 L (3.5-5.1) mmol/L Carbon Dioxide 33 H (22-30) mmol/L BUN 34 H (7-17) mg/dL Glucose 163 H (74-99) mg/dL POC Glucose (mg/dL) 176 H (70-110) mg/dL Calcium 8.0 L (8.4-10.2) mg/dL 10/18/23 10/18/23 10/18/23 Range/Units 05:51 08:05 08:09 WBC (3.8-10.6) k/uL RBC (3.80-5.40) m/uL Hgb (11.4-16.0) gm/dL Hct (34.0-46.0) % MCV (80.0-100.0) fL RDW (11.5-15.5) % Plt Count (150-450) k/uL Neutrophils # (1.3-7.7) k/uL Monocytes # (0-1.0) k/uL Macrocytosis ABG pH 7.52 H (7.35-7.45) ABG pO2 81 L (83-108) mmHg ABG HCO3 34 H (21-25) mmol/L ABG Total CO2 36 H (19-24) mmol/L Potassium 3.3 L (3.5-5.1) mmol/L Carbon Dioxide (22-30) mmol/L BUN (7-17) mg/dL Glucose (74-99) mg/dL POC Glucose (mg/dL) 209 H (70-110) mg/dL Calcium (8.4-10.2) mg/dL 10/18/23 10/18/23 Range/Units 12:09 13:55 WBC (3.8-10.6) k/uL RBC (3.80-5.40) m/uL Hgb (11.4-16.0) gm/dL Hct (34.0-46.0) % MCV (80.0-100.0) fL RDW (11.5-15.5) % Plt Count (150-450) k/uL Neutrophils # (1.3-7.7) k/uL Monocytes # (0-1.0) k/uL Macrocytosis ABG pH 7.51 H (7.35-7.45) ABG pO2 78 L (83-108) mmHg ABG HCO3 36 H (21-25) mmol/L ABG Total CO2 38 H (19-24) mmol/L Potassium (3.5-5.1) mmol/L Carbon Dioxide (22-30) mmol/L BUN (7-17) mg/dL Glucose (74-99) mg/dL POC Glucose (mg/dL) 165 H (70-110) mg/dL Calcium (8.4-10.2) mg/dL
[2023-10-18 16:00] LABS: Glucose,Whole Blood 221 mg/dL (70-110)
[2023-10-18] MEDS: ENOXAPARIN 40 MG/0.4 ML SYRINGE SQ SCH (20:28)
[2023-10-18 20:31] LABS: Glucose,Whole Blood 138 mg/dL (70-110)
[2023-10-18 23:58] LABS: Glucose,Whole Blood 133 mg/dL (70-110)
[2023-10-19 04:17] LABS: Glucose,Whole Blood 144 mg/dL (70-110)
[2023-10-19 04:28] LABS: Anisocytosis Moderate; Basophils % (A) 0 %; Eosinophils % (A) 0 %; HCT 26.4 % (34.0-46.0); HGB 8.5 gm/dL (11.4-16.0); Hypochromasia Marked; Lymphocytes # (A) 1.3 k/uL (1.0-4.8); Lymphocytes % (A) 4 %; MCH 34.2 pg (25.0-35.0); MCHC 32.2 g/dL (31.0-37.0); Macrocytosis Marked; Mean Platelet Volume 12.7; Monocytes % (A) 3 %; Neutrophils # (A) 28.1 k/uL (1.3-7.7); Neutrophils % (A) 91 %; RBC 2.49 m/uL (3.80-5.40); RDW 21.5 % (11.5-15.5); WBC 30.8 k/uL (3.8-10.6)
[2023-10-19 04:36] LABS: MCV 106.1 fL (80.0-100.0); Platelet Count 69 k/uL (150-450)
[2023-10-19 04:51] LABS: African American GFR (CKD) >90 (>60 ml/min/1.73 sqM); Anion Gap 4 mmol/L; Blood Urea Nitrogen 36 mg/dL (7-17); Calcium 8.1 mg/dL (8.4-10.2); Carbon Dioxide 35 mmol/L (22-30); Chloride 105 mmol/L (98-107); Glucose 135 mg/dL (74-99); Magnesium 2.1 mg/dL (1.6-2.3); Non-African American GFR(CKD) >90 (>60 ml/min/1.73 sqM); Potassium 3.8 mmol/L (3.5-5.1); Sodium 144 mmol/L (137-145)
[2023-10-19] MEDS: POTASSIUM CHLORIDE 10 MEQ in WATER FOR INJECTION 1 100ML.BAG IVPB SCH (05:19)
--- NOTE | 2023-10-19 08:31 | XR ---
EXAMINATION TYPE: XR chest 1V portable DATE OF EXAM: 10/19/2023 6:02 AM CLINICAL INDICATION:Female, 48 years old with history of mechanical ventilation; [facility] COMPARISON: Chest radiograph from one day prior. TECHNIQUE: XR chest 1V portable Frontal view of the chest. FINDINGS: Lungs/Pleura: There is no evidence of pleural effusion, focal consolidation, or pneumothorax. Pulmonary vascularity: Unremarkable. Heart/mediastinum: Cardiomediastinal silhouette is unremarkable. Musculoskeletal: No acute osseous pathology. Other findings: None Lines/Tubes: Endotracheal nasogastric tube removed. IMPRESSION: Low lung volumes with a generalized hazy appearance which could represent atelectasis
[2023-10-19 08:37] LABS: Glucose,Whole Blood 138 mg/dL (70-110)
[2023-10-19 12:07] LABS: Glucose,Whole Blood 131 mg/dL (70-110)
--- NOTE | 2023-10-19 12:08 | P.PN ---
Subjective Progress Note Date: 10/19/23 Principal diagnosis: Liver failure, respiratory failure. This is a pleasant 48-year-old female patient with a known history of alcoholism with subsequent cirrhosis and chronic pancreatitis. Quit drinking approximately 5 years ago. She does have chronic and ongoing tobacco dependence, anxiety/depression, gastroesophageal reflux disease. She has a 2 week history of initially a dry nonproductive cough that had progressed into a loose congested cough with shortness of breath. She presented here to the emergency room yesterday. DT scan of the abdomen and pelvis revealed patchy bilateral airspace consolidation consistent with multifocal lobar pneumonia. Hepatic steatosis. Abdominal ascites. Wall thickening of the small bowel, correlate for mild enteritis versus spontaneous bacterial peritonitis. CT angiogram ruled out pulmonary embolism. There is again noted patchy bilateral airspace consolidation consistent with multilobar pneumonia. Chest x-ray shows similar multifocal airspace opacities. Count 16.5. Hemoglobin 10.0. Platelets 188. INR 1.7. D-dimer 2.80. Sodium 132. Potassium 3.7. Bicarb 24. BUN 18. Creatinine 0.84. Glucose 270. Initial lactic acid 7.0. Currently 2.2. AST 113. ALT 68. Alk phos 208. ProBNP 2040. Lipase 49. Serum alcohol less than 10. Viral screen negative. She is seen today in consultation in the emergency department. She is currently resting on a stretcher. She is awake and alert. She is requiring 10 L high flow nasal cannula to maintain O2 saturations in the 90s. She drops into the 70s on room air. She was initiated on ceftriaxone and azithromycin azithromycin. NicoDerm patch in place. She received 3 L of fluid resuscitation. Normal saline at 100 ML's per hour. Patient with very today on 10/10/2023, I saw this patient yesterday on consultation, and recommended transferring the patient to the ICU after she was seen in the ER. Apparently the patient was transferred to the ICU, and early this morning her pulmonary status continued to deteriorate, patient developed worsening pulmonary edema with underlying pneumonia, patient did receive significant amount of fluids for her sepsis presentation, and she developed pulmonary edema in addition to her underlying pneumonia. She is now on assist- control rate of 20 tidal volume 350 FiO2 100% and PEEP of 10. ABG this morning showed a pO2 of 80 pCO2 43 pH of 7.34. Patient had an echocardiogram showed severe LV dysfunction with ejection fraction of 30%., There was no evidence of valvular heart disease. Considering the findings, Lasix was given at 60 mg IV push every 12 hours, patient remains empirically on Zosyn for pneumonia and for possible abdominal sepsis. She is yet to have paracentesis to rule out acute spontaneous peritonitis in the last 24 hours, patient developed worsening pulmonary edema, and worsening abdominal distention with worsening ascites. WBC count today is 26.6 hemoglobin is 10.3. Basic metabolic profile is relatively normal, renal profile is normal. Calcitonin level is 0.61. BNP yesterday was 2039, influenza and Legionella as well as RSV and COVID-19 screening came back all negative Reevaluated today on 10/11/2023, patient remains in the ICU, intubated and mechanically ventilated. Patient is on assist-control rate of 20 tidal volume 350 FiO2 50% PEEP of 12, ABG showed a pO2 of 128 pCO2 43 pH of 7.41, hence I dropped the PEEP down to 10 and FiO2 down to 45%. Chest x-ray is showing improvement in her pneumonia and improvement in her pulmonary edema. Urine output remains marginal at 25 to 30 cc/h, blood pressure remains marginal in spite of being on dobutamine remain at 2.5 mcg/kg/min norepinephrine at 0.15 mcg/kg/min propofol 40 mcg/kg/min, patient is also on IV fluids at KVO which I have increased today to 75 cc/h and patient remains on Zosyn empirically for pneumonia, and for possible peritonitis. Interventional radiology is delaying and not planning to do paracentesis at this point mostly because of patient's blood pressure is marginal. I will recommend vasopressin on this patient, and will likely discontinue dobutamine on this patient. I have discontinued her Lasix, and started IV fluid at 0.9 normal saline 75 cc/h will initiate nutritional support/vital HP today. Patient remains critically ill, but nonetheless she is improving, updated her family/father and mother at bedside on her condition. WBC count is 24.9 hemoglobin 9.6. WBC count is improving compared to yesterday basic metabolic profile is normal renal profile showed a BUN of 25 creatinine 1.10 slightly worse compared to admission creatinine of 0.64, and that is not surprising Patient was reevaluated today on 10/12/2023, remains in the ICU, intubated and mechanically ventilated, patient is on assist-control rate of 20 tidal volume 350 FiO2 45% PEEP of 10 ABG showed a pO2 of 88 pCO2 37 pH of 7.44. Urine output is marginal roughly 10 to 15 cc/h, hence I recommended a dose of Lasix to be given 40 mg IV push, will hold on fluid boluses since her chest x-ray is showing worsening interstitial edema, slightly worse compared to the chest x-ray she had yesterday. However the patient is now on lesser PEEP and she is on lesser FiO2. Scheduled to have paracentesis today. Patient is on vasopressin at 0.03, she is also on norepinephrine at 0.03 mcg/kg/min IV fluid at 75 cc/h in the form of 0.9 normal saline. Cultures of the blood remain negative, cultures from the peritoneal fluid will be pending once the patient undergoes paracentesis. Patient remains on Zosyn WBC count today is 24.6, improving hemoglobin is 9.1 basic metabolic profile is normal BUN is 40 creatinine 1.09, again her blood cultures are negative so far, Patient was noted today on 10/13/2023, remains in the ICU, intubated and me chanically ventilated. She is now on assist-control rate of 20 tidal volume 350 FiO2 35% PEEP is 10 ABG showed a pO2 of 148 pCO2 39 pH of 7.43 has significant improvement noted in her ABG and it is correlated with the improvement noted on the chest x-ray. I cut down the PEEP down to 5 and FiO2 was made 40%. Patient remains on vasopressin but she is off norepinephrine or vasopressin at 0.02 unit s/min, she is on propofol at 30 mcg/kg/min IV fluid remains at 75 cc/h vital HP at 35 cc/h. Her urine output has been marginal, fluid boluses were given about 1 L, if no improvement may at that point consider diuresing the patient. Remains on Zosyn empirically, cultures remain negative. Negative cultures also on the peritoneal fluid so far negative blood cultures WBC count is down to 25.4 hemoglobin 8.7, platelets are 1 27,000 basic metabolic profile is normal renal profile is acceptable with a BUN of 49 creat 1.03. Blood sugar a bit elevated at 178 chest x-ray continues to show improvement with mild interstitial edema/infiltrates Reevaluate today on 10/14/2023, remains in the ICU intubated and mechanically ventilated, patient is on assist-control rate of 20 tidal volume 350 FiO2 40% P EEP is 5 ABG showed a pO2 of 91 pCO2 35 pH of 7.45, hence no changes were made in her ventilator settings. Patient is now completely off pressors, off norepinephrine and off vasopressin, maintained on relatively low-dose of propofol at 20 mcg/kg/min, her IV fluid is running at 75 cc/h, chest x-ray showed mild interstitial edema/infiltrates, given Lasix and she put out 300 cc of urine almost within a short.. Of time after Lasix was given. Patient is having issues with residual from enteral feeding and I will hold the feeding for now temporarily. Remains on Zosyn, her endotracheal tube seems to be sitting high in the trachea and it will be advanced down about 2 cm. Chest x-ray again was reviewed and suggestive of mild interstitial edema. Ammonia level was checked because of her mental status and it seems to be normal her WBC count is coming down to 22.4 hemoglobin is 8.6. Basic metabolic profile is normal renal profile is normal and sugar is 163 sputum is positive for Marleni albicans, however this has no clinical significance at this point Patient was reevaluated today on 10/15/2023, remains in the ICU intubated and mechanically ventilated, patient is on assist-control rate of 20 tidal volume 350 FiO2 50% and PEEP of 5 ABG showed a pO2 of 81 pCO2 35 pH of 7.43. Chest x-ray today showed slight worsening of her interstitial edema, hence I am recommending Lasix again 40 mg IV push was given, and I am recommending Lasix to be given twice daily. Patient is receiving vital HP at 35 cc/h IV fluid at 75 cc/h and I will cut it down since the patient is developing intermittent CHF. Remains on propofol at 50 mcg/kg/min, her last echocardiogram showed ejection fraction of 30 to 35%. CBC is improving down to 21.8 hemoglobin is 8.6 platelets are 106 sodium is 145 hence we will change her IV fluid to D5 4 5, her bicarb is 19. BUN is 40 creatinine 0.71, overall the patient is improving, however unable to cut down sedation significantly as she becomes extremely agitated, did not tolerate Precedex when we tried Precedex couple of days ago. Intermittently the patient is requiring Ativan to keep her synchronous with the ventilator. Sending her chest x-ray appearance today, I am recommending diuretics and I am not recommending weaning at this point yet. I am cutting down her Solu-Medrol to 40 mg IV push every 12 hours keeping her on Lovenox 40 mg subcu daily for DVT prophylaxis. Doing Zosyn for her bilateral pneumonia on presentation. Progress note dated October 16, 2023. This is a 48-year-old female who was admitted to the hospital on October 08, with a diagnosis of pneumonia, heart failure, alcoholic liver disease, and ascites. The patient was intubated for respiratory failure on October 10, 2023. She remains on the mechanical ventilator. Settings include volume assist- control, rate 20, tidal volume 350, FiO2 40%, PEEP of 5. Blood gases show pO2 of 83, pCO2 of 34, and a pH of 7.49. This blood gas is consistent with a mild respiratory alkalosis. The patient is receiving propofol at 20 mcg/kg/min, and D5 with half-normal saline at 50 cc an hour. In addition, the patient is receiving vital high-protein at 35 cc an hour, which is goal. Labs include a white count of 24.8, hemoglobin 8.7, hematocrit 28.8, and a platelet count of 98,000. PT is 16.1 with an INR of 1.6. Sodium 144, potassium 3.9, chlorides 114, CO2 25, BUN 39, creatinine 0.71. Glucose is 122. Albumin is 2.6. AST is 89, ALT is 73. The patient's total bilirubin is 3.0. Microbiologic sampling is negative or pending. Chest x-ray shows some diffuse bilateral patchy airspace disease. Progress note dated October 17, 2023. This is a 48-year-old female who was admitted to the hospital on October 08, with a diagnosis of pneumonia, heart failure, alcoholic liver disease, and ascites. The patient was intubated for respiratory failure on October 10, 2023. She remains on the mechanical ventilator. Settings include volume assist- control, rate 20, tidal volume 350, FiO2 40%, and PEEP of 5. Blood gases show pO2 of 86, pCO2 34, pH is 7.51. This blood gas was consistent with a combined respiratory and metabolic alkalosis. The patient is on saline at KVO, and vital 1.2 at 40 cc an hour. Goal is 40 cc an hour. The patient will have a daily interruption of sedation and a spontaneous breathing trial, with a pressure support of 8 and CPAP of 5. White count is 36.1, hemoglobin 8.8, hematocrit 29.1, and platelet count 99,000. Sodium 144, potassium 3.2, chlorides 109, CO2 27, anion gap 8, BUN 40, creatinine 0.71. Albumin is 2.6. Total bilirubin is elevated at 3. AST is 110, and ALT is 91. Microbiology is pending are negative. Chest x-ray shows diffuse interstitial and patchy opacities throughout both lungs, which may be slightly improved. Abdominal ultrasound shows some moderate abdominal ascites. Progress note dated October 18, 2023. 48-year-old female admitted to the hospital back on October 08, with a diagnosis of pneumonia, heart failure, alcoholic liver disease, and ascites. The patient remains on the mechanical ventilator. The patient was actually intubated on October 10. Current ventilator settings include volume assist-control, rate 20, tidal volume 350, FiO2 40%, PEEP of 5. Blood gases show pO2 of 81, pCO2 42, the pH is 7.52. The patient remains on propofol at 30 mcg/kg/min, and saline at KVO. She is getting vital 1.2 at 40 cc an hour, which is goal. Yesterday, she had a daily interruption of sedation with a spontaneous breathing trial, with a pressure support of 8 and CPAP of 5. She lasted about 2 hours. She did have a paracentesis abdominis yesterday, and 3.2 L was removed. White count is 34.1, hemoglobin 8.6, hematocrit 27.5, platelet count 78,000. Sodium 142, potassium 3.3, chlorides 106, CO2 33, BUN 34, creatinine 0.6. Calcium is 8. Culture data is thus far negative. Chest x-ray today, it is a bit improved, compared to the prior x-ray. Progress note dated October 19, 2023. 48-year-old female admitted to the hospital back on October 08 with a diagnosis of pneumonia, heart failure, alcoholic liver disease, and ascites. Yesterday, the patient was placed on spontaneous breathing trial, with pressure support and CPAP. She had excellent weaning parameters, and a blood gas, and she was succe ssfully extubated. Currently, the patient is on room air. She is getting saline at KVO. Her Lasix dose was decreased from every 8 hours, to every 12 hours. White count is 30.8, hemoglobin 8.5, hematocrit 26.4, platelet count was 69,000. Sodium 144, potassium 3.8, chlorides 105, CO2 35, BUN 36, creatinine 0.6. Magnesium is 2.1. Calcium 8.1. Chest x-ray shows small lung volumes, and diffuse haziness. Objective - Vital Signs Vital signs: Vital Signs Temp 98.3 F 10/19/23 08:00 Pulse 82 10/19/23 10:00 Resp 16 10/19/23 10:00 BP 91/53 10/19/23 08:00 Pulse Ox 92 L 10/19/23 10:00 FiO2 50 10/18/23 14:10 Intake & Output 10/18/23 10/19/23 10/19/23 18:59 06:59 18:59 Intake Total 434.920 512 52 Output Total 1560 975 55 Balance -1125.080 -463 -3 Weight 77 kg 75 kg Intake: IV 286 512 52 .9 pressure bag 66 72 12 0.9 Sodium Chloride 220 240 40 Potassium Chloride 10 meq 200 In Water For Injection 1 100ml.bag @ 100 mls/hr IVPB Q1H [facility] Rx#: [id number] Intake, IV Titration 38.920 Amount propofoL 1,000 mg In 38.920 Empty Bag 1 bag @ 15 MCG/ KG/MIN 4.899 mls/hr IV . [id number] ELIES[facility] Rx#:[id number] Tube Feeding 80 Other 30 Output: Urine 1260 975 55 Stool 300 Other: Voiding Method Indwelling Catheter Indwelling Catheter ABP, PAP, CO, CI - Last Documented Arterial Blood Pressure 111/53 - Exam No acute distress, awake and alert, currently extubated, and on no supplemental oxygen. HEENT examination is grossly unremarkable. Neck supple. Full range of motion. No adenopathy thyromegaly or neck vein distention. Cardiovascular examination reveals regular rhythm rate. S1-S2 normal. No S3 or S4. No discernible murmur noted. Heart rate is 82 bpm. Lungs reveal scattered bilateral rhonchi. Few scattered crackles noted. No wheezes. Breath sounds are equal bilaterally. Saturations are 93 %. Abdomen soft, but distended, with likely ascites. No masses. The abdomen is less distended today. Extremities are intact. No cyanosis or clubbing. Diffuse anasarca is noted. Skin is without rash or lesion. Neurologic examination is brief but nonfocal. The patient has diffuse weakness. - Labs CBC & Chem 7: 10/19/23 04:15 10/19/23 04:15 Labs: Abnormal Lab Results - Last 24 Hours (Table) 10/18/23 10/18/23 10/18/23 Range/Units 12:09 13:55 15:57 WBC (3.8-10.6) k/uL RBC (3.80-5.40) m/uL Hgb (11.4-16.0) gm/dL Hct (34.0-46.0) % MCV (80.0-100.0) fL RDW (11.5-15.5) % Plt Count (150-450) k/uL Neutrophils # (1.3-7.7) k/uL Macrocytosis ABG pH 7.51 H (7.35-7.45) ABG pO2 78 L (83-108) mmHg ABG HCO3 36 H (21-25) mmol/L ABG Total CO2 38 H (19-24) mmol/L Carbon Dioxide (22-30) mmol/L BUN (7-17) mg/dL Glucose (74-99) mg/dL POC Glucose (mg/dL) 165 H 221 H (70-110) mg/dL Calcium (8.4-10.2) mg/dL 10/18/23 10/18/23 10/19/23 Range/Units 20:18 23:56 04:15 WBC 30.8 H (3.8-10.6) k/uL RBC 2.49 L (3.80-5.40) m/uL Hgb 8.5 L (11.4-16.0) gm/dL Hct 26.4 L (34.0-46.0) % MCV 106.1 H (80.0-100.0) fL RDW 21.5 H (11.5-15.5) % Plt Count 69 L (150-450) k/uL Neutrophils # 28.1 H (1.3-7.7) k/uL Macrocytosis Marked A ABG pH (7.35-7.45) ABG pO2 (83-108) mmHg ABG HCO3 (21-25) mmol/L ABG Total CO2 (19-24) mmol/L Carbon Dioxide (22-30) mmol/L BUN (7-17) mg/dL Glucose (74-99) mg/dL POC Glucose (mg/dL) 138 H 133 H (70-110) mg/dL Calcium (8.4-10.2) mg/dL 10/19/23 10/19/23 10/19/23 Range/Units 04:15 04:15 08:36 WBC (3.8-10.6) k/uL RBC (3.80-5.40) m/uL Hgb (11.4-16.0) gm/dL Hct (34.0-46.0) % MCV (80.0-100.0) fL RDW (11.5-15.5) % Plt Count (150-450) k/uL Neutrophils # (1.3-7.7) k/uL Macrocytosis ABG pH (7.35-7.45) ABG pO2 (83-108) mmHg ABG HCO3 (21-25) mmol/L ABG Total CO2 (19-24) mmol/L Carbon Dioxide 35 H (22-30) mmol/L BUN 36 H (7-17) mg/dL Glucose 135 H (74-99) mg/dL POC Glucose (mg/dL) 144 H 138 H (70-110) mg/dL Calcium 8.1 L (8.4-10.2) mg/dL Assessment and Plan Assessment: Acute hypoxemic respiratory failure, secondary to bilateral pneumonia, as well as some fluid overload/CHF, status post intubation and mechanical ventilation on October 10, 2023. S/P successful extubation on October 18, 2023. Acute pulmonary edema, cardiogenic in origin, with an ejection fraction of 20%. Ascites, status post paracentesis abdominis. History of liver cirrhosis, related to alcohol abuse. History of chronic pancreatitis. History of anxiety/depression. Tobacco dependence syndrome. Plan: Plan dated October 16, 2023. The patient continues on ventilatory support, but the patient will have a daily interruption of sedation. Previously, with DIS, the patient becomes acutely agitated, with abnormalities in her vital signs. The patient's Lasix based on her chest x-ray, will be increased to 40 mg every 8 hours. Labs, x-rays, and medications are all reviewed. The patient's overall prognosis remains very guarded. She has diffuse edema and anasarca. The patient remains on propofol at 20 mcg/kg/min, and D5 with half-normal saline at 50 cc an hour, which I told the nurse that she can discontinue. She does continue on vital high-protein at 35 cc an hour, which is her goal. We will continue to follow the patient, make recommendations along the way. The patient's overall prognosis remains very guarded. Plan dated October 17, 2023. The patient will be given a daily interruption of sedation and spontaneous breathing trial, on a pressure support of 8 cmH2O, and CPAP of 5 cm of water. Propofol will be held. She continues on tube feedings. I had a long conversation with the parents yesterday. Labs, x-rays, medications are reviewed. The patient's overall prognosis remains guarded. Her swelling is a bit improved. Her chest x-ray is a bit improved. We did increase the Lasix up to every 8 hours. We will continue to follow make recommendations along the way. Plan dated October 18, 2023. The patient will again have another trial off the ventilator, on pressure support of 8 and CPAP of 5. Yesterday, she lasted about 2 hours. In addition, she underwent paracentesis abdominis yesterday, and 3.2 L of fluid was removed. She continues on propofol, and tube feedings. Blood gases are adequate and actually show a developing metabolic alkalosis. We will continue to follow make recommendations along the way. I did speak to the family about tracheostomy and PEG tube placement. That certainly is an option down the road if she does not show any improvement. Will see how she does with her daily interruption of sedation and spontaneous breathing trial today. Overall prognosis remains guarded. Plan dated October 19, 2023. The patient was successfully extubated yesterday, on October 18, 2023. Currently, she has been weaned down to room air. She is getting saline at KVO. Her Lasix is decreased from every 8 hours to every 12 hours. She did have a paracentesis abdominous recently, with 3.2 L removed. Labs, x-rays, and med ications are all reviewed. The patient's overall prognosis remains very guarded, given her alcoholic liver disease, and cirrhosis. We will continue to follow the patient, and make recommendations along the way. I have communicated all of this to the father and mother. They understand. Even though the patient was successfully extubated, she is certainly not out of the giles by any means. Time with Patient: Greater than 30
[2023-10-19 16:34] LABS: Glucose,Whole Blood 256 mg/dL (70-110)
--- NOTE | 2023-10-19 17:51 | P.PN ---
Subjective PROGRESS NOTE The patient is a 48-year-old female with a history of chronic tobacco use, prior history of alcohol intake with liver cirrhosis, ascites and chronic pancreatitis who presented with symptoms of progressive dyspnea and was diagnosed with bilateral multilobar pneumonia, this morning she got more dyspneic requiring mechanical ventilation. Cardiology consultation was requested for possible CHF. The patient has no prior documented history of CAD. Her echocardiogram in 2019 showed a preserved systolic function. She is in sinus mechanism, on low-dose of norepinephrine. She has no evidence of malignant arrhythmia. On admission she had leukocytosis, elevated plasma lactic acid. Her troponin was less then 0.012 and her NT proBNP was 0. She was in sinus mechanism with sinus tachycardia and intermittent incomplete left bundle branch block that appears to be rate related. Her IVCD was not noted in 2019. The nursing staff have been suctioning greenish-yellowish sputum from her ET tube. September 10: The patient remains intubated and sedated. She is on IV dobutamine 2.5 mcg/kg/min in addition to norepinephrine. Her echocardiogram showed an impaired systolic function with an ejection fraction of 30 to 35%. Of note that the patient had a normal LV systolic function in 2019. She continues to be in sinus mechanism and sinus tachycardia. There is no evidence of malignant arrhythmia. Her urinary output is borderline on IV Lasix. Her chest x-ray shows improvement in her infiltrate. September 11: The patient remains intubated and sedated. Off dobutamine on the lower dose of norepinephrine and continues to be on vasopressin. She has been getting IV fluid at 75 cc an hour. Her urinary output is borderline. She is afebrile. She continues to be in sinus mechanism with no evidence of atrial fibrillation. She may undergo paracentesis today. 10/16 Patient seen and examined. Patient was previously receiving IV fluids however has been receiving more aggressive diuresis. Lasix was increased to 80 mg 3 times a day with good urine output. Creatinine has been stable. Remains on ventilator with FiO2 40% and PEEP of 5. Echo showed ejection fraction 30-35% 10/17 Patient seen and examined. Patient has been increased on Lasix up to 3 times a day and has had good urine output with -2 and half liters over last 24 hours. Echo showing decrease EF 30 to 35%. Blood pressure still borderline. Remains on ventilator. Undergoing paracentesis today. White blood cell count 36, Cr stable at 0.7. 1/31 Patient remains on Lasix IV 40 mg every 8 hours with almost 5 L output yesterday. She has been tolerating spontaneous breathing trial today and alert on ventilator and denies any chest pain or pressure. Creatinine stable. Blood pressures remain borderline however tolerating metoprolol. 10/19 Patient seen and examined. Lasix was decreased to twice a day. Patient was extubated yesterday. She denies any chest pain or pressure. Biological father did have a history of IA in the past. Medications: PHYSICAL EXAMINATION: Vitals reviewed LUNGS: Clear to auscultation, anteriorly HEART: Regular rate and rhythm, S1, S2. No S3. No systolic murmur ABDOMEN: Soft, positive bowel sounds, ascites, no organomegaly EXTREMETIES: 2+ edema IMPRESSION: 1. Acute respiratory failure with multilobar bilateral pneumonia, requiring mechanical ventilation 2. Cardiomyopathy by echocardiogram with ejection fraction of 30 to 35%, could be acute related to the infectious process vs possible alcohol induced 3. History of cirrhosis and recurrent ascites related to a prior history of alcohol intake. Patient has not been drinking for 5 years 4. Chronic tobacco use 5. MARANDA, improved PLAN: Patient is off of vasopressors and continues to be volume overloaded. Continue with diuretics Recheck echo to evaluate if any improvement in EF. If EF continues to be low attempt to optimize heart failure regimen more and may consider more of an ischemic workup however this may be performed outpatient. Objective - Vital Signs Vital signs: Vital Signs Temp 98.4 F 10/19/23 17:00 Pulse 82 10/19/23 17:00 Resp 22 10/19/23 17:00 BP 100/62 10/19/23 17:00 Pulse Ox 92 L 10/19/23 17:00 FiO2 50 10/18/23 14:10 Intake & Output 10/18/23 10/19/23 10/19/23 18:59 06:59 18:59 Intake Total 434.920 512 868.429 Output Total 1560 975 305 Balance -1125.080 -463 563.429 Weight 77 kg 75 kg Intake: IV 286 512 260 .9 pressure bag 66 72 60 0.9 Sodium Chloride 220 240 200 Potassium Chloride 10 meq 200 In Water For Injection 1 100ml.bag @ 100 mls/hr IVPB Q1H [facility] Rx#: [id number] Intake, IV Titration 38.920 128.429 Amount Norepinephrine 4 mg In 128.429 Sodium Chloride 0.9% 250 ml @ 0.03 MCG/KG/MIN 6. 221 mls/hr IV .Q24H [facility] Rx#:[id number] propofoL 1,000 mg In 38.920 Empty Bag 1 bag @ 15 MCG/ KG/MIN 4.899 mls/hr IV . [id number] [facility] Rx#:[id number] Oral 480 Tube Feeding 80 Other 30 Output: Urine 1260 975 305 Stool 300 Other: Voiding Method Indwelling Catheter Indwelling Catheter Indwelling Catheter ABP, PAP, CO, CI - Last Documented Arterial Blood Pressure 113/53 - Labs CBC & Chem 7: 10/19/23 04:15 10/19/23 04:15 Labs: Abnormal Lab Results - Last 24 Hours (Table) 10/18/23 10/18/23 10/19/23 Range/Units 20:18 23:56 04:15 WBC 30.8 H (3.8-10.6) k/uL RBC 2.49 L (3.80-5.40) m/uL Hgb 8.5 L (11.4-16.0) gm/dL Hct 26.4 L (34.0-46.0) % MCV 106.1 H (80.0-100.0) fL RDW 21.5 H (11.5-15.5) % Plt Count 69 L (150-450) k/uL Neutrophils # 28.1 H (1.3-7.7) k/uL Macrocytosis Marked A Carbon Dioxide (22-30) mmol/L BUN (7-17) mg/dL Glucose (74-99) mg/dL POC Glucose (mg/dL) 138 H 133 H (70-110) mg/dL Calcium (8.4-10.2) mg/dL 10/19/23 10/19/23 10/19/23 Range/Units 04:15 04:15 08:36 WBC (3.8-10.6) k/uL RBC (3.80-5.40) m/uL Hgb (11.4-16.0) gm/dL Hct (34.0-46.0) % MCV (80.0-100.0) fL RDW (11.5-15.5) % Plt Count (150-450) k/uL Neutrophils # (1.3-7.7) k/uL Macrocytosis Carbon Dioxide 35 H (22-30) mmol/L BUN 36 H (7-17) mg/dL Glucose 135 H (74-99) mg/dL POC Glucose (mg/dL) 144 H 138 H (70-110) mg/dL Calcium 8.1 L (8.4-10.2) mg/dL 10/19/23 10/19/23 Range/Units 12:05 16:33 WBC (3.8-10.6) k/uL RBC (3.80-5.40) m/uL Hgb (11.4-16.0) gm/dL Hct (34.0-46.0) % MCV (80.0-100.0) fL RDW (11.5-15.5) % Plt Count (150-450) k/uL Neutrophils # (1.3-7.7) k/uL Macrocytosis Carbon Dioxide (22-30) mmol/L BUN (7-17) mg/dL Glucose (74-99) mg/dL POC Glucose (mg/dL) 131 H 256 H (70-110) mg/dL Calcium (8.4-10.2) mg/dL
[2023-10-19] MEDS: FUROSEMIDE 10 MG/ML 4 ML VIAL IV SCH (20:03)
[2023-10-19 20:21] LABS: Glucose,Whole Blood 227 mg/dL (70-110)
[2023-10-19 23:27] LABS: Glucose,Whole Blood 128 mg/dL (70-110)
[2023-10-20] LABS: Glucose,Whole Blood 126 mg/dL (70-110)
[2023-10-20 04:00] LABS: Glucose,Whole Blood 158 mg/dL (70-110)
[2023-10-20 07:52] LABS: African American GFR (CKD) >90 (>60 ml/min/1.73 sqM); Anion Gap 9 mmol/L; Blood Urea Nitrogen 32 mg/dL (7-17); Carbon Dioxide 28 mmol/L (22-30); Chloride 99 mmol/L (98-107); Glucose 195 mg/dL (74-99); Non-African American GFR(CKD) >90 (>60 ml/min/1.73 sqM); Potassium 3.6 mmol/L (3.5-5.1); Sodium 136 mmol/L (137-145)
[2023-10-20 08:02] LABS: Anisocytosis Moderate; Basophils # (A) 0.1 k/uL (0-0.2); Basophils % (A) 0 %; Eosinophils % (A) 0 %; HCT 28.1 % (34.0-46.0); HGB 9.4 gm/dL (11.4-16.0); Hypochromasia Marked; Lymphocytes # (A) 1.7 k/uL (1.0-4.8); Lymphocytes % (A) 7 %; MCH 36.3 pg (25.0-35.0); MCHC 33.6 g/dL (31.0-37.0); MCV 108.2 fL (80.0-100.0); Macrocytosis Marked; Mean Platelet Volume 12.7; Monocytes # (A) 1.8 k/uL (0-1.0); Monocytes % (A) 8 %; Neutrophils # (A) 19.9 k/uL (1.3-7.7); Neutrophils % (A) 84 %; RDW 21.4 % (11.5-15.5); WBC 23.7 k/uL (3.8-10.6)
[2023-10-20 08:13] LABS: Glucose,Whole Blood 237 mg/dL (70-110)
[2023-10-20] MEDS: IPRATROPIUM-ALBUTEROL 3 ML NEB INHALATION SCH (08:16)
--- NOTE | 2023-10-20 08:27 | XR ---
EXAMINATION TYPE: XR chest 1V portable DATE OF EXAM: 10/20/2023 6:13 AM CLINICAL INDICATION:Female, 48 years old with history of PNA; COMPARISON: Chest radiograph from one day prior. TECHNIQUE: XR chest 1V portable Frontal view of the chest. FINDINGS: Lungs/Pleura: Is low lung volumes with diffuse haziness of lungs and bibasilar airspace opacities. Th ere is no evidence of pleural effusion, or pneumothorax. Pulmonary vascularity: Unremarkable. Heart/mediastinum: Cardiomediastinal silhouette is unremarkable. Musculoskeletal: No acute osseous pathology. IMPRESSION: Right middle lobe and left lower lobe airspace opacities with hazy appearance of lungs is compatible with pneumonia. Findings appear worse compared to one day prior possibly due to low lung volumes.
[2023-10-20 08:58] LABS: Platelet Count 71 k/uL (150-450)
[2023-10-20] MEDS: POTASSIUM CHLORIDE 10 MEQ in WATER FOR INJECTION 1 100ML.BAG IVPB SCH (10:53)
--- NOTE | 2023-10-20 11:18 | P.PN ---
Subjective Progress Note Date: 10/20/23 Principal diagnosis: Liver failure, respiratory failure. This is a pleasant 48-year-old female patient with a known history of alcoholism with subsequent cirrhosis and chronic pancreatitis. Quit drinking approximately 5 years ago. She does have chronic and ongoing tobacco dependence, anxiety/depression, gastroesophageal reflux disease. She has a 2 week history of initially a dry nonproductive cough that had progressed into a loose congested cough with shortness of breath. She presented here to the emergency room yesterday. DT scan of the abdomen and pelvis revealed patchy bilateral airspace consolidation consistent with multifocal lobar pneumonia. Hepatic steatosis. Abdominal ascites. Wall thickening of the small bowel, correlate for mild enteritis versus spontaneous bacterial peritonitis. CT angiogram ruled out pulmonary embolism. There is again noted patchy bilateral airspace consolidation consistent with multilobar pneumonia. Chest x-ray shows similar multifocal airspace opacities. Count 16.5. Hemoglobin 10.0. Platelets 188. INR 1.7. D-dimer 2.80. Sodium 132. Potassium 3.7. Bicarb 24. BUN 18. Creatinine 0.84. Glucose 270. Initial lactic acid 7.0. Currently 2.2. AST 113. ALT 68. Alk phos 208. ProBNP 2040. Lipase 49. Serum alcohol less than 10. Viral screen negative. She is seen today in consultation in the emergency department. She is currently resting on a stretcher. She is awake and alert. She is requiring 10 L high flow nasal cannula to maintain O2 saturations in the 90s. She drops into the 70s on room air. She was initiated on ceftriaxone and azithromycin azithromycin. NicoDerm patch in place. She received 3 L of fluid resuscitation. Normal saline at 100 ML's per hour. Patient with very today on 10/10/2023, I saw this patient yesterday on consultation, and recommended transferring the patient to the ICU after she was seen in the ER. Apparently the patient was transferred to the ICU, and early this morning her pulmonary status continued to deteriorate, patient developed worsening pulmonary edema with underlying pneumonia, patient did receive significant amount of fluids for her sepsis presentation, and she developed pulmonary edema in addition to her underlying pneumonia. She is now on assist- control rate of 20 tidal volume 350 FiO2 100% and PEEP of 10. ABG this morning showed a pO2 of 80 pCO2 43 pH of 7.34. Patient had an echocardiogram showed severe LV dysfunction with ejection fraction of 30%., There was no evidence of valvular heart disease. Considering the findings, Lasix was given at 60 mg IV push every 12 hours, patient remains empirically on Zosyn for pneumonia and for possible abdominal sepsis. She is yet to have paracentesis to rule out acute spontaneous peritonitis in the last 24 hours, patient developed worsening pulmonary edema, and worsening abdominal distention with worsening ascites. WBC count today is 26.6 hemoglobin is 10.3. Basic metabolic profile is relatively normal, renal profile is normal. Calcitonin level is 0.61. BNP yesterday was 2039, influenza and Legionella as well as RSV and COVID-19 screening came back all negative Reevaluated today on 10/11/2023, patient remains in the ICU, intubated and mechanically ventilated. Patient is on assist-control rate of 20 tidal volume 350 FiO2 50% PEEP of 12, ABG showed a pO2 of 128 pCO2 43 pH of 7.41, hence I dropped the PEEP down to 10 and FiO2 down to 45%. Chest x-ray is showing improvement in her pneumonia and improvement in her pulmonary edema. Urine output remains marginal at 25 to 30 cc/h, blood pressure remains marginal in spite of being on dobutamine remain at 2.5 mcg/kg/min norepinephrine at 0.15 mcg/kg/min propofol 40 mcg/kg/min, patient is also on IV fluids at KVO which I have increased today to 75 cc/h and patient remains on Zosyn empirically for pneumonia, and for possible peritonitis. Interventional radiology is delaying and not planning to do paracentesis at this point mostly because of patient's blood pressure is marginal. I will recommend vasopressin on this patient, and will likely discontinue dobutamine on this patient. I have discontinued her Lasix, and started IV fluid at 0.9 normal saline 75 cc/h will initiate nutritional support/vital HP today. Patient remains critically ill, but nonetheless she is improving, updated her family/father and mother at bedside on her condition. WBC count is 24.9 hemoglobin 9.6. WBC count is improving compared to yesterday basic metabolic profile is normal renal profile showed a BUN of 25 creatinine 1.10 slightly worse compared to admission creatinine of 0.64, and that is not surprising Patient was reevaluated today on 10/12/2023, remains in the ICU, intubated and mechanically ventilated, patient is on assist-control rate of 20 tidal volume 350 FiO2 45% PEEP of 10 ABG showed a pO2 of 88 pCO2 37 pH of 7.44. Urine output is marginal roughly 10 to 15 cc/h, hence I recommended a dose of Lasix to be given 40 mg IV push, will hold on fluid boluses since her chest x-ray is showing worsening interstitial edema, slightly worse compared to the chest x-ray she had yesterday. However the patient is now on lesser PEEP and she is on lesser FiO2. Scheduled to have paracentesis today. Patient is on vasopressin at 0.03, she is also on norepinephrine at 0.03 mcg/kg/min IV fluid at 75 cc/h in the form of 0.9 normal saline. Cultures of the blood remain negative, cultures from the peritoneal fluid will be pending once the patient undergoes paracentesis. Patient remains on Zosyn WBC count today is 24.6, improving hemoglobin is 9.1 basic metabolic profile is normal BUN is 40 creatinine 1.09, again her blood cultures are negative so far, Patient was noted today on 10/13/2023, remains in the ICU, intubated and me chanically ventilated. She is now on assist-control rate of 20 tidal volume 350 FiO2 35% PEEP is 10 ABG showed a pO2 of 148 pCO2 39 pH of 7.43 has significant improvement noted in her ABG and it is correlated with the improvement noted on the chest x-ray. I cut down the PEEP down to 5 and FiO2 was made 40%. Patient remains on vasopressin but she is off norepinephrine or vasopressin at 0.02 unit s/min, she is on propofol at 30 mcg/kg/min IV fluid remains at 75 cc/h vital HP at 35 cc/h. Her urine output has been marginal, fluid boluses were given about 1 L, if no improvement may at that point consider diuresing the patient. Remains on Zosyn empirically, cultures remain negative. Negative cultures also on the peritoneal fluid so far negative blood cultures WBC count is down to 25.4 hemoglobin 8.7, platelets are 1 27,000 basic metabolic profile is normal renal profile is acceptable with a BUN of 49 creat 1.03. Blood sugar a bit elevated at 178 chest x-ray continues to show improvement with mild interstitial edema/infiltrates Reevaluate today on 10/14/2023, remains in the ICU intubated and mechanically ventilated, patient is on assist-control rate of 20 tidal volume 350 FiO2 40% P EEP is 5 ABG showed a pO2 of 91 pCO2 35 pH of 7.45, hence no changes were made in her ventilator settings. Patient is now completely off pressors, off norepinephrine and off vasopressin, maintained on relatively low-dose of propofol at 20 mcg/kg/min, her IV fluid is running at 75 cc/h, chest x-ray showed mild interstitial edema/infiltrates, given Lasix and she put out 300 cc of urine almost within a short.. Of time after Lasix was given. Patient is having issues with residual from enteral feeding and I will hold the feeding for now temporarily. Remains on Zosyn, her endotracheal tube seems to be sitting high in the trachea and it will be advanced down about 2 cm. Chest x-ray again was reviewed and suggestive of mild interstitial edema. Ammonia level was checked because of her mental status and it seems to be normal her WBC count is coming down to 22.4 hemoglobin is 8.6. Basic metabolic profile is normal renal profile is normal and sugar is 163 sputum is positive for Marleni albicans, however this has no clinical significance at this point Patient was reevaluated today on 10/15/2023, remains in the ICU intubated and mechanically ventilated, patient is on assist-control rate of 20 tidal volume 350 FiO2 50% and PEEP of 5 ABG showed a pO2 of 81 pCO2 35 pH of 7.43. Chest x-ray today showed slight worsening of her interstitial edema, hence I am recommending Lasix again 40 mg IV push was given, and I am recommending Lasix to be given twice daily. Patient is receiving vital HP at 35 cc/h IV fluid at 75 cc/h and I will cut it down since the patient is developing intermittent CHF. Remains on propofol at 50 mcg/kg/min, her last echocardiogram showed ejection fraction of 30 to 35%. CBC is improving down to 21.8 hemoglobin is 8.6 platelets are 106 sodium is 145 hence we will change her IV fluid to D5 4 5, her bicarb is 19. BUN is 40 creatinine 0.71, overall the patient is improving, however unable to cut down sedation significantly as she becomes extremely agitated, did not tolerate Precedex when we tried Precedex couple of days ago. Intermittently the patient is requiring Ativan to keep her synchronous with the ventilator. Sending her chest x-ray appearance today, I am recommending diuretics and I am not recommending weaning at this point yet. I am cutting down her Solu-Medrol to 40 mg IV push every 12 hours keeping her on Lovenox 40 mg subcu daily for DVT prophylaxis. Doing Zosyn for her bilateral pneumonia on presentation. Progress note dated October 16, 2023. This is a 48-year-old female who was admitted to the hospital on October 08, with a diagnosis of pneumonia, heart failure, alcoholic liver disease, and ascites. The patient was intubated for respiratory failure on October 10, 2023. She remains on the mechanical ventilator. Settings include volume assist- control, rate 20, tidal volume 350, FiO2 40%, PEEP of 5. Blood gases show pO2 of 83, pCO2 of 34, and a pH of 7.49. This blood gas is consistent with a mild respiratory alkalosis. The patient is receiving propofol at 20 mcg/kg/min, and D5 with half-normal saline at 50 cc an hour. In addition, the patient is receiving vital high-protein at 35 cc an hour, which is goal. Labs include a white count of 24.8, hemoglobin 8.7, hematocrit 28.8, and a platelet count of 98,000. PT is 16.1 with an INR of 1.6. Sodium 144, potassium 3.9, chlorides 114, CO2 25, BUN 39, creatinine 0.71. Glucose is 122. Albumin is 2.6. AST is 89, ALT is 73. The patient's total bilirubin is 3.0. Microbiologic sampling is negative or pending. Chest x-ray shows some diffuse bilateral patchy airspace disease. Progress note dated October 17, 2023. This is a 48-year-old female who was admitted to the hospital on October 08, with a diagnosis of pneumonia, heart failure, alcoholic liver disease, and ascites. The patient was intubated for respiratory failure on October 10, 2023. She remains on the mechanical ventilator. Settings include volume assist- control, rate 20, tidal volume 350, FiO2 40%, and PEEP of 5. Blood gases show pO2 of 86, pCO2 34, pH is 7.51. This blood gas was consistent with a combined respiratory and metabolic alkalosis. The patient is on saline at KVO, and vital 1.2 at 40 cc an hour. Goal is 40 cc an hour. The patient will have a daily interruption of sedation and a spontaneous breathing trial, with a pressure support of 8 and CPAP of 5. White count is 36.1, hemoglobin 8.8, hematocrit 29.1, and platelet count 99,000. Sodium 144, potassium 3.2, chlorides 109, CO2 27, anion gap 8, BUN 40, creatinine 0.71. Albumin is 2.6. Total bilirubin is elevated at 3. AST is 110, and ALT is 91. Microbiology is pending are negative. Chest x-ray shows diffuse interstitial and patchy opacities throughout both lungs, which may be slightly improved. Abdominal ultrasound shows some moderate abdominal ascites. Progress note dated October 18, 2023. 48-year-old female admitted to the hospital back on October 08, with a diagnosis of pneumonia, heart failure, alcoholic liver disease, and ascites. The patient remains on the mechanical ventilator. The patient was actually intubated on October 10. Current ventilator settings include volume assist-control, rate 20, tidal volume 350, FiO2 40%, PEEP of 5. Blood gases show pO2 of 81, pCO2 42, the pH is 7.52. The patient remains on propofol at 30 mcg/kg/min, and saline at KVO. She is getting vital 1.2 at 40 cc an hour, which is goal. Yesterday, she had a daily interruption of sedation with a spontaneous breathing trial, with a pressure support of 8 and CPAP of 5. She lasted about 2 hours. She did have a paracentesis abdominis yesterday, and 3.2 L was removed. White count is 34.1, hemoglobin 8.6, hematocrit 27.5, platelet count 78,000. Sodium 142, potassium 3.3, chlorides 106, CO2 33, BUN 34, creatinine 0.6. Calcium is 8. Culture data is thus far negative. Chest x-ray today, it is a bit improved, compared to the prior x-ray. Progress note dated October 19, 2023. 48-year-old female admitted to the hospital back on October 08 with a diagnosis of pneumonia, heart failure, alcoholic liver disease, and ascites. Yesterday, the patient was placed on spontaneous breathing trial, with pressure support and CPAP. She had excellent weaning parameters, and a blood gas, and she was succe ssfully extubated. Currently, the patient is on room air. She is getting saline at KVO. Her Lasix dose was decreased from every 8 hours, to every 12 hours. White count is 30.8, hemoglobin 8.5, hematocrit 26.4, platelet count was 69,000. Sodium 144, potassium 3.8, chlorides 105, CO2 35, BUN 36, creatinine 0.6. Magnesium is 2.1. Calcium 8.1. Chest x-ray shows small lung volumes, and diffuse haziness. Progress note dated October 20, 2023. 48-year-old female, seen today in room 267. Currently, she is on room air. She is getting saline at KVO. The patient is doing very well status post recent extubation. Current laboratory data includes a white count 23.7, hemoglobin 9.4, hematocrit 28.1, and platelet count 71,000. Sodium 136, potassium 3.6, chloride 99, CO2 28, BUN is 32, with creatinine 0.47. Calcium is 8. Glucose is 237. Microbiology is currently pending are negative. The x-ray today shows some airspace disease, in the right middle lobe, and right lower lobe. Objective - Vital Signs Vital signs: Vital Signs Temp 98.3 F 10/20/23 04:00 Pulse 98 10/20/23 10:00 Resp 19 10/20/23 10:00 BP 108/60 10/20/23 10:00 Pulse Ox 90 L 10/20/23 10:00 FiO2 50 10/18/23 14:10 Intake & Output 10/19/23 10/20/23 10/20/23 18:59 06:59 18:59 Intake Total 1014.429 802 Output Total 335 900 Balance 679.429 -98 Weight 77.7 kg Intake: IV 286 302 .9 pressure bag 66 42 0.9 Sodium Chloride 220 260 Intake, IV Titration 128.429 Amount Norepinephrine 4 mg In 128.429 Sodium Chloride 0.9% 250 ml @ 0.03 MCG/KG/MIN 6. 221 mls/hr IV .Q24H [facility] Rx#:[id number] Oral 600 500 Output: Urine 335 800 Stool 100 Other: Voiding Method Indwelling Catheter Indwelling Catheter Indwelling Catheter ABP, PAP, CO, CI - Last Documented Arterial Blood Pressure 111/50 - Exam No acute distress, awake and alert, currently extubated, and on no supplemental oxygen. HEENT examination is grossly unremarkable. Neck supple. Full range of motion. No adenopathy thyromegaly or neck vein distention. Cardiovascular examination reveals regular rhythm rate. S1-S2 normal. No S3 or S4. No discernible murmur noted. Heart rate is 90 bpm. Lungs reveal scattered bilateral rhonchi. Few scattered crackles noted. No wheezes. Breath sounds are equal bilaterally. Saturations are 94 %. Abdomen soft, but distended, with likely ascites. No masses. The abdomen is l ess distended today. Extremities are intact. No cyanosis or clubbing. Diffuse anasarca is noted. Skin is without rash or lesion. Neurologic examination is brief but nonfocal. The patient has diffuse weakness. - Labs CBC & Chem 7: 10/20/23 07:00 10/20/23 07:00 Labs: Abnormal Lab Results - Last 24 Hours (Table) 10/19/23 10/19/23 10/19/23 Range/Units 12:05 16:33 20:19 WBC (3.8-10.6) k/uL RBC (3.80-5.40) m/uL Hgb (11.4-16.0) gm/dL Hct (34.0-46.0) % MCV (80.0-100.0) fL MCH (25.0-35.0) pg RDW (11.5-15.5) % Plt Count (150-450) k/uL Neutrophils # (1.3-7.7) k/uL Monocytes # (0-1.0) k/uL Macrocytosis Sodium (137-145) mmol/L BUN (7-17) mg/dL Creatinine (0.52-1.04) mg/dL Glucose (74-99) mg/dL POC Glucose (mg/dL) 131 H 256 H 227 H (70-110) mg/dL Calcium (8.4-10.2) mg/dL 10/19/23 10/19/23 10/20/23 Range/Units 23:26 23:58 03:58 WBC (3.8-10.6) k/uL RBC (3.80-5.40) m/uL Hgb (11.4-16.0) gm/dL Hct (34.0-46.0) % MCV (80.0-100.0) fL MCH (25.0-35.0) pg RDW (11.5-15.5) % Plt Count (150-450) k/uL Neutrophils # (1.3-7.7) k/uL Monocytes # (0-1.0) k/uL Macrocytosis Sodium (137-145) mmol/L BUN (7-17) mg/dL Creatinine (0.52-1.04) mg/dL Glucose (74-99) mg/dL POC Glucose (mg/dL) 128 H 126 H 158 H (70-110) mg/dL Calcium (8.4-10.2) mg/dL 10/20/23 10/20/23 10/20/23 Range/Units 07:00 07:00 08:12 WBC 23.7 H (3.8-10.6) k/uL RBC 2.60 L (3.80-5.40) m/uL Hgb 9.4 L (11.4-16.0) gm/dL Hct 28.1 L (34.0-46.0) % MCV 108.2 H (80.0-100.0) fL MCH 36.3 H (25.0-35.0) pg RDW 21.4 H (11.5-15.5) % Plt Count 71 L (150-450) k/uL Neutrophils # 19.9 H (1.3-7.7) k/uL Monocytes # 1.8 H (0-1.0) k/uL Macrocytosis Marked A Sodium 136 L (137-145) mmol/L BUN 32 H (7-17) mg/dL Creatinine 0.47 L (0.52-1.04) mg/dL Glucose 195 H (74-99) mg/dL POC Glucose (mg/dL) 237 H (70-110) mg/dL Calcium 8.0 L (8.4-10.2) mg/dL Assessment and Plan Assessment: Acute hypoxemic respiratory failure, secondary to bilateral pneumonia, as well as some fluid overload/CHF, status post intubation and mechanical ventilation on October 10, 2023. S/P successful extubation on October 18, 2023. Acute pulmonary edema, cardiogenic in origin, with an ejection fraction of 20%. Ascites, status post paracentesis abdominis. History of liver cirrhosis, related to alcohol abuse. History of chronic pancreatitis. History of anxiety/depression. Tobacco dependence syndrome. Plan: Plan dated October 16, 2023. The patient continues on ventilatory support, but the patient will have a daily interruption of sedation. Previously, with DIS, the patient becomes acutely agitated, with abnormalities in her vital signs. The patient's Lasix based on her chest x-ray, will be increased to 40 mg every 8 hours. Labs, x-rays, and medications are all reviewed. The patient's overall prognosis remains very guarded. She has diffuse edema and anasarca. The patient remains on propofol at 20 mcg/kg/min, and D5 with half-normal saline at 50 cc an hour, which I told the nurse that she can discontinue. She does continue on vital high-protein at 35 cc an hour, which is her goal. We will continue to follow the patient, make recommendations along the way. The patient's overall prognosis remains very guarded. Plan dated October 17, 2023. The patient will be given a daily interruption of sedation and spontaneous breat jesus trial, on a pressure support of 8 cmH2O, and CPAP of 5 cm of water. Propofol will be held. She continues on tube feedings. I had a long conversation with the parents yesterday. Labs, x-rays, medications are reviewed. The patient's overall prognosis remains guarded. Her swelling is a bit improved. Her chest x-ray is a bit improved. We did increase the Lasix up to every 8 hours. We will continue to follow make recommendations along the way. Plan dated October 18, 2023. The patient will again have another trial off the ventilator, on pressure support of 8 and CPAP of 5. Yesterday, she lasted about 2 hours. In addition, she underwent paracentesis abdominis yesterday, and 3.2 L of fluid was removed. She continues on propofol, and tube feedings. Blood gases are adequate and a ctually show a developing metabolic alkalosis. We will continue to follow make recommendations along the way. I did speak to the family about tracheostomy and PEG tube placement. That certainly is an option down the road if she does not show any improvement. Will see how she does with her daily interruption of sedation and spontaneous breathing trial today. Overall prognosis remains guarded. Plan dated October 19, 2023. The patient was successfully extubated yesterday, on October 18, 2023. Currently, she has been weaned down to room air. She is getting saline at KVO. Her Lasix is decreased from every 8 hours to every 12 hours. She did have a paracentesis abdominous recently, with 3.2 L removed. Labs, x-rays, and medications are all reviewed. The patient's overall prognosis remains very guarded, given her alcoholic liver disease, and cirrhosis. We will continue to follow the patient, and make recommendations along the way. I have communicated all of this to the father and mother. They understand. Even though the patient was successfully extubated, she is certainly not out of the giles by any means. Plan dated October 20, 2023. The patient is doing well. She apparently is a bit depressed today. Will have the primary service deal with that issue. From the pulmonary and hemodynamic standpoint, the patient is doing well. She is on room air. She is getting KVO fluids. From my perspective, the patient is stable for discharge out of the intensive care unit. Labs, x-rays, and medications are reviewed. The prognosis is guarded. The patient will probably need paracentesis abdominis, periodically. We will continue to follow, and make recommendations along the way. Prognosis is guarded. Time with Patient: Less than 30
[2023-10-20 12:06] LABS: Glucose,Whole Blood 282 mg/dL (70-110)
[2023-10-20 16:11] LABS: Glucose,Whole Blood 231 mg/dL (70-110)
--- NOTE | 2023-10-20 18:25 | P.PN ---
Subjective PROGRESS NOTE The patient is a 48-year-old female with a history of chronic tobacco use, prior history of alcohol intake with liver cirrhosis, ascites and chronic pancreatitis who presented with symptoms of progressive dyspnea and was diagnosed with bilateral multilobar pneumonia, this morning she got more dyspneic requiring mechanical ventilation. Cardiology consultation was requested for possible CHF. The patient has no prior documented history of CAD. Her echocardiogram in 2019 showed a preserved systolic function. She is in sinus mechanism, on low-dose of norepinephrine. She has no evidence of malignant arrhythmia. On admission she had leukocytosis, elevated plasma lactic acid. Her troponin was less then 0.012 and her NT proBNP was 0. She was in sinus mechanism with sinus tachycardia and intermittent incomplete left bundle branch block that appears to be rate related. Her IVCD was not noted in 2019. The nursing staff have been suctioning greenish-yellowish sputum from her ET tube. September 10: The patient remains intubated and sedated. She is on IV dobutamine 2.5 mcg/kg/min in addition to norepinephrine. Her echocardiogram showed an impaired systolic function with an ejection fraction of 30 to 35%. Of note that the patient had a normal LV systolic function in 2019. She continues to be in sinus mechanism and sinus tachycardia. There is no evidence of malignant arrhythmia. Her urinary output is borderline on IV Lasix. Her chest x-ray shows improvement in her infiltrate. September 11: The patient remains intubated and sedated. Off dobutamine on the lower dose of norepinephrine and continues to be on vasopressin. She has been getting IV fluid at 75 cc an hour. Her urinary output is borderline. She is afebrile. She continues to be in sinus mechanism with no evidence of atrial fibrillation. She may undergo paracentesis today. 10/16 Patient seen and examined. Patient was previously receiving IV fluids however has been receiving more aggressive diuresis. Lasix was increased to 80 mg 3 times a day with good urine output. Creatinine has been stable. Remains on ventilator with FiO2 40% and PEEP of 5. Echo showed ejection fraction 30-35% 10/17 Patient seen and examined. Patient has been increased on Lasix up to 3 times a day and has had good urine output with -2 and half liters over last 24 hours. Echo showing decrease EF 30 to 35%. Blood pressure still borderline. Remains on ventilator. Undergoing paracentesis today. White blood cell count 36, Cr stable at 0.7. 1/31 Patient remains on Lasix IV 40 mg every 8 hours with almost 5 L output yesterday. She has been tolerating spontaneous breathing trial today and alert on ventilator and denies any chest pain or pressure. Creatinine stable. Blood pressures remain borderline however tolerating metoprolol. 10/19 Patient seen and examined. Lasix was decreased to twice a day. Patient was extubated yesterday. She denies any chest pain or pressure. Biological father did have a history of LA in the past. 10/20 Patient seen and examined. Patient denies any chest pain or pressure. Still has some lower extremity edema. Does not have much of an appetite. White blood cell count 23, hemoglobin 9.4, creatinine 0.4 Medications: PHYSICAL EXAMINATION: Vitals reviewed LUNGS: Clear to auscultation, anteriorly HEART: Regular rate and rhythm, S1, S2. No S3. No systolic murmur ABDOMEN: Soft, positive bowel sounds, ascites, no organomegaly EXTREMETIES: 2+ edema IMPRESSION: 1. Acute respiratory failure with multilobar bilateral pneumonia, requiring mechanical ventilation 2. Cardiomyopathy by echocardiogram with ejection fraction of 30 to 35%, could be acute related to the infectious process vs possible alcohol induced 3. History of cirrhosis and recurrent ascites related to a prior history of alcohol intake. Patient has not been drinking for 5 years 4. Chronic tobacco use 5. MARANDA, improved PLAN: Patient is off of vasopressors and continues to be volume overloaded. Continue with diuretics Awaiting echo to evaluate if any improvement in EF. If EF continues to be low attempt to optimize heart failure regimen more and may consider more of an ischemic workup however this may be performed outpatient. Objective - Vital Signs Vital signs: Vital Signs Temp 98.4 F 10/20/23 14:00 Pulse 86 10/20/23 15:33 Resp 20 10/20/23 14:00 BP 105/62 10/20/23 14:00 Pulse Ox 91 L 10/20/23 14:00 FiO2 50 10/18/23 14:10 Intake & Output 10/19/23 10/20/23 10/20/23 18:59 06:59 18:59 Intake Total 1014.429 802 592 Output Total 335 900 110 Balance 679.429 -98 482 Weight 77.7 kg 77.7 kg Intake: IV 286 302 92 .9 pressure bag 66 42 12 0.9 Sodium Chloride 220 260 80 Intake, IV Titration 128.429 Amount Norepinephrine 4 mg In 128.429 Sodium Chloride 0.9% 250 ml @ 0.03 MCG/KG/MIN 6. 221 mls/hr IV .Q24H [facility] Rx#:[id number] Oral 600 500 500 Output: Urine 335 800 110 Stool 100 Other: Voiding Method Indwelling Catheter Indwelling Catheter Indwelling Catheter ABP, PAP, CO, CI - Last Documented Arterial Blood Pressure 111/50 - Labs CBC & Chem 7: 10/20/23 07:00 10/20/23 07:00 Labs: Abnormal Lab Results - Last 24 Hours (Table) 10/19/23 10/19/23 10/19/23 Range/Units 20:19 23:26 23:58 WBC (3.8-10.6) k/uL RBC (3.80-5.40) m/uL Hgb (11.4-16.0) gm/dL Hct (34.0-46.0) % MCV (80.0-100.0) fL MCH (25.0-35.0) pg RDW (11.5-15.5) % Plt Count (150-450) k/uL Neutrophils # (1.3-7.7) k/uL Monocytes # (0-1.0) k/uL Macrocytosis Sodium (137-145) mmol/L BUN (7-17) mg/dL Creatinine (0.52-1.04) mg/dL Glucose (74-99) mg/dL POC Glucose (mg/dL) 227 H 128 H 126 H (70-110) mg/dL Calcium (8.4-10.2) mg/dL 10/20/23 10/20/23 10/20/23 Range/Units 03:58 07:00 07:00 WBC 23.7 H (3.8-10.6) k/uL RBC 2.60 L (3.80-5.40) m/uL Hgb 9.4 L (11.4-16.0) gm/dL Hct 28.1 L (34.0-46.0) % MCV 108.2 H (80.0-100.0) fL MCH 36.3 H (25.0-35.0) pg RDW 21.4 H (11.5-15.5) % Plt Count 71 L (150-450) k/uL Neutrophils # 19.9 H (1.3-7.7) k/uL Monocytes # 1.8 H (0-1.0) k/uL Macrocytosis Marked A Sodium 136 L (137-145) mmol/L BUN 32 H (7-17) mg/dL Creatinine 0.47 L (0.52-1.04) mg/dL Glucose 195 H (74-99) mg/dL POC Glucose (mg/dL) 158 H (70-110) mg/dL Calcium 8.0 L (8.4-10.2) mg/dL 10/20/23 10/20/23 10/20/23 Range/Units 08:12 12:04 16:10 WBC (3.8-10.6) k/uL RBC (3.80-5.40) m/uL Hgb (11.4-16.0) gm/dL Hct (34.0-46.0) % MCV (80.0-100.0) fL MCH (25.0-35.0) pg RDW (11.5-15.5) % Plt Count (150-450) k/uL Neutrophils # (1.3-7.7) k/uL Monocytes # (0-1.0) k/uL Macrocytosis Sodium (137-145) mmol/L BUN (7-17) mg/dL Creatinine (0.52-1.04) mg/dL Glucose (74-99) mg/dL POC Glucose (mg/dL) 237 H 282 H 231 H (70-110) mg/dL Calcium (8.4-10.2) mg/dL
[2023-10-20] MEDS: INSULIN ASPART (NovoLOG) 100 UNIT/ML VIAL SQ SCH (20:32)
[2023-10-21 07:53] LABS: Glucose,Whole Blood 236 mg/dL (70-110)
--- NOTE | 2023-10-21 07:56 | P.PN ---
Subjective Patient is a 48-year-old female with a past medical history of severe alcohol abuse, quit 5 years ago, alcoholic liver cirrhosis and is on follow-up with her draughtsman at [facility], IBS, anxiety/depression and presents to ER with complaints of worsening shortness of breath. Patient states that she has been having shortness of breath for the past week and a half and did get worse in the last few days. Patient tried using her breathing treatments at home but did not get improvement. Patient was recently given antibiotics and prednisone by her physician. She has been increasingly weak and not feeling well. Patient presented to ER for evaluation. He was also complaining of cough without any sputum production. Also complaining of chest tightness and anxiety. Denies any leg swelling. No nausea or vomiting. Patient is also having increased abdominal girth. No prior history of paracentesis as per patient. Denies any fever at home. On admission patient was tachycardic and tachypneic and pulse ox 80% on room air. Currently requiring 8 L of oxygen via nasal cannula. CT of the abdomen pelvis showed patchy bilateral airspace consolidation consistent with multilobar pneumonia. Hepatic steatosis, abdominal ascites. Wa ll thickening of small bowel correlate for mild enteritis versus spontaneous bacterial peritonitis. CTA chest showed no PE. Patchy bilateral airspace consolidation consistent with multilobar pneumonia. Chest x-ray showed similar multifocal airspace opacities. Laboratory data showed WBC 16.5 hemoglobin 10.0 MCV 102.4 and platelets 188 and neutrophils 14.4 INR 1.7, D-dimer 2.8 Sodium 132 potassium 3.7 chloride 95 bicarbonate 24 BUN 18 and creatinine 0.84 and blood sugar 270 and lactic acid 7.0 on admission, calcium 8.1, total bilirubin level is 4.6 AST 113 ALT 68 and alk phos 208 Troponin 0.012 and proBNP 2040 and albumin 3.0 Influenza A, B, RSV and COVID-19 PCR not detected. 10/10/2023 Patient was transferred to MICU. Overnight patient's respiratory status worsened due to multifocal pneumonia and also patient is receiving fluids at 100 cc/h due to sepsis. Patient was intubated and is on assist-control. Patient is currently requiring pressor support. Chest x-ray this morning showed severe bilateral pulmonary infiltration which has worsened. Was given IV Lasix. 2D echocardiogram showed dilated LV and severe LV systolic dysfunction. Ejection fraction 30 to 35%. Laboratory showed WBC worsened to 26.6 hemoglobin 10.3 and platelets 190 Sodium 139 potassium 3.6 chloride 108 bicarb is 20 BUN 15 and creatinine 0.64 blood sugar 206 and A1c 6.8 lactic acid 5.4 this morning. Liver enzymes are elevated. Cardiology and pulmonary is on board. Patient is being continued on antibiotics changed to Zosyn. Procalcitonin level is elevated at 0.61. 10/11/2023 Patient is in the MICU. Intubated and sedated. On mechanical ventilator. Patient is also requiring pressor support with Levophed and also on dobutamine drip. Urine output remains low. Patient has been afebrile. Nutrition via NG tube. Patient was also started on IV hydration with normal saline at 75 cc/h. Chest x-ray showed multifocal airspace opacities are not significantly changed. Support tubes and proper positioning. Patient remains on antibiotics in the form of Zosyn. 2D echocardiogram showed left ventricular ejection fraction 30 to 35%. Mild right ventricular dilatation. Trace pericardial effusion and pleural effusion was identified. Laboratory data showed WBC 24.9 hemoglobin 9.6 and platelets 187 Sodium 137 potassium 4.2 chloride 102 bicarb is 26 BUN 25 and creatinine 1.1 and blood sugar 264. Patient is scheduled for paracentesis tomorrow. Blood cultures negative so far. Cardiology and pulmonary is on board. 10/12/2023 Patient is in the MICU. Remains intubated and sedated. On assist-control with respiratory of 20 tidal volume 350 and FiO2 40% and PEEP of 10. Continue to be on vasopressin and norepinephrine. Patient was also started on IV hydration with normal saline at 75 cc/h. Urine output is marginal. Patient remains on antibiotics Zosyn. Repeat chest x-ray this morning showed similar multifocal airspace opacities. Patient was given a dose of IV Lasix. Stable support tubes. Laboratory data showed WBC 24.6 hemoglobin 9.1 and platelets 144 BUN 40 and creatinine 1.09 and blood sugar is elevated at 312. Levemir dose increased to 12 units twice daily and continue with insulin sliding scale. Cardiology and critical care team is on board.Patient is scheduled to go for paracentesis today. 10/13/2023 Patient remains in the MICU. On assist-control with FiO2 35% and PEEP of 10. Tidal volume 350. Currently sedation is off. Chest x-ray showed stable exam mild pulmonary edema. Patient underwent ultrasound-guided paracentesis with 1800 cc clear straw- colored fluid drained. Pathology and culture is pending. Laboratory data showed WBC 25.4 hemoglobin 8.7 and platelets 127 BUN 49 creatinine 1.03 potassium 4.2 and blood sugar 159. Patient is being current on IV Solu-Medrol 60 mg every 6 hourly and is also on antibiotics, Zosyn. 10/14/2023 Patient is a pleasant 48 years old female who presents with bilateral pneumonia with acute hypoxic respiratory failure requiring intubation and mechanical ventilation. CTA of the chest was negative for PE which is done secondary to high d-dimer, CT of the abdomen showing thickened small bowel loops suspicious for enteritis, patient currently covered with Zosyn ProBNP is elevated 2039, chest x-ray showing mild was for congestion and ejection fraction is 30-35% patient is receiving IV Lasix and She Is Intubated. She Is Also on Salmeterol 60 Mg for Possible Acute COPD Exacerbation. Patient on Insulin Levemir 12 Units Twice Daily She Has Decompensated Liver Cirrhosis Status Post Paracentesis on 10/12 Where 1800 ML of Fluid Aspirated Patient today undergoing sedation holiday with propofol was off since yesterday Patient got agitated and she was placed on Precedex as well as IV morphine with little help so far Discussed with the bedside nurse Patient could not tolerate CPAP earlier, currently continued on mechanical ventilation with P5 and FiO2 of 40% Family at bedside 10/15/2023 Patient remains in the ICU intubated and sedated Over the last 2 days she was undergoing sedation holiday and propofol was stopped Today she was more agitated and she was placed back on a propofol Pulmonary level yesterday was 20 but given her worsening mentation we ordered a repeat ammonia level and KUB for abdomen slightly distended She had paracentesis related to her decompensated liver cirrhosis about 3 days ago with 1800 mL of fluid taken out We going to order a KUB but possible patient will require more paracentesis She received 1 dose of IV Lasix Normal saline 75 mL output 250 mL/h She remains on Zosyn and Solu-Medrol 60 mg Discussed with the bedside nurse 10/16/2023 Patient remains in the ICU intubated and sedated Yesterday after on repeat chest x-ray showing pulmonary congestion IV fluids of normal saline 50 mL was stopped and patient was started on IV Lasix 40 mg every 8 hours Repeat chest x-ray this morning testosterone pulmonary congestion, KUB showing nonobstructive pattern most likely patient has ascites related to her liver cirrhosis. Also patient placed on low-dose Lopressor suffers a percent respiratory blood pressure Metoprolol 25 mg 3 times a day per Patient Educator This she swelling is on board and patient glucose is controlled. 10/17/2023 Patient is from his ICU sedated and intubated. Today propofol was stopped and patient could follow command Weaning trial is attempting and patient was replaced back on before meals mode because of her tachypnea Also patient is planned to undergo paracentesis so between today and tomorrow for her ascites related to her liver cirrhosis. Extremities without obvious on Medrol 40 mg, Zosyn, IV Lasix 40 mg every 8 hours. 10/18/2023 Patient remains intubated and sedated in the ICU with pulmonary/critical care team followed closely. Patient under going sedation holiday for possible extubation She still has leukocytosis of 24,000, hemoglobin 8.6. IV fluids discontinued Currently on Solu-Medrol 40 mg, Zosyn and Lasix 40 mg 3 times a day. Objective - Vital Signs Vital signs: Vital Signs Temp 98.2 F 10/18/23 12:00 Pulse 77 10/18/23 12:00 Resp 22 10/18/23 12:00 BP 90/55 10/18/23 12:00 Pulse Ox 95 10/18/23 12:00 FiO2 40 10/18/23 12:00 Intake & Output 10/17/23 10/18/23 10/18/23 18:59 06:59 18:59 Intake Total 916.000 976.269 278.920 Output Total 5200 1530 635 Balance -4284.000 -553.731 -356.080 Weight 77 kg 77 kg Intake: IV 286 312 130 .9 pressure bag 66 72 30 0.9 Sodium Chloride 220 240 100 Intake, IV Titration 100.000 164.269 38.920 Amount Norepinephrine 4 mg In 0 Sodium Chloride 0.9% 250 ml @ 0.03 MCG/KG/MIN 6. 221 mls/hr IV .Q24H [facility] Rx#:[id number] propofoL 1,000 mg In 100.000 164.269 38.920 Empty Bag 1 bag @ 15 MCG/ KG/MIN 4.899 mls/hr IV . [id number] [facility] Rx#:[id number] Tube Feeding 440 440 80 Other 90 60 30 Output: Drainage 3200 Abdomen 3200 Urine 2000 1530 635 Other: Voiding Method Indwelling Catheter Indwelling Catheter Indwelling Catheter ABP, PAP, CO, CI - Last Documented Arterial Blood Pressure 104/47 - Exam -GENERAL: The patient is intubated HEENT: Pupils are round and equally reacting to light. EOMI. No scleral icterus. No conjunctival pallor. Normocephalic, atraumatic. No pharyngeal erythema. No thyromegaly. CARDIOVASCULAR: S1 and S2 present. No murmurs, rubs, or gallops. PULMONARY: Chest is clear to auscultation, no wheezing , no crackles. ABDOMEN: Soft, nontender, nondistended, normoactive bowel sounds. No palpable organomegaly. MUSCULOSKELETAL: No joint swelling or deformity. EXTREMITIES: No cyanosis, clubbing, or pedal edema. NEUROLOGICAL: Gross neurological examination did not reveal any focal deficits. SKIN: No rashes. no petechiae. - Labs CBC & Chem 7: 10/20/23 07:00 10/20/23 07:00 Labs: Abnormal Lab Results - Last 24 Hours (Table) 10/17/23 10/17/23 10/17/23 Range/Units 15:13 16:45 20:42 WBC (3.8-10.6) k/uL RBC (3.80-5.40) m/uL Hgb (11.4-16.0) gm/dL Hct (34.0-46.0) % MCV (80.0-100.0) fL RDW (11.5-15.5) % Plt Count (150-450) k/uL Neutrophils # (1.3-7.7) k/uL Monocytes # (0-1.0) k/uL Macrocytosis ABG pH (7.35-7.45) ABG pO2 (83-108) mmHg ABG HCO3 (21-25) mmol/L ABG Total CO2 (19-24) mmol/L Potassium (3.5-5.1) mmol/L Carbon Dioxide (22-30) mmol/L BUN (7-17) mg/dL Glucose (74-99) mg/dL POC Glucose (mg/dL) 224 H 224 H 244 H (70-110) mg/dL Calcium (8.4-10.2) mg/dL 10/18/23 10/18/23 10/18/23 Range/Units 00:30 04:23 04:24 WBC 34.1 H (3.8-10.6) k/uL RBC 2.62 L (3.80-5.40) m/uL Hgb 8.6 L (11.4-16.0) gm/dL Hct 27.5 L (34.0-46.0) % MCV 104.8 H (80.0-100.0) fL RDW 21.8 H (11.5-15.5) % Plt Count 78 L (150-450) k/uL Neutrophils # 31.3 H (1.3-7.7) k/uL Monocytes # 1.2 H (0-1.0) k/uL Macrocytosis Marked A ABG pH (7.35-7.45) ABG pO2 (83-108) mmHg ABG HCO3 (21-25) mmol/L ABG Total CO2 (19-24) mmol/L Potassium (3.5-5.1) mmol/L Carbon Dioxide (22-30) mmol/L BUN (7-17) mg/dL Glucose (74-99) mg/dL POC Glucose (mg/dL) 227 H 176 H (70-110) mg/dL Calcium (8.4-10.2) mg/dL 10/18/23 10/18/23 10/18/23 Range/Units 04:24 05:51 08:05 WBC (3.8-10.6) k/uL RBC (3.80-5.40) m/uL Hgb (11.4-16.0) gm/dL Hct (34.0-46.0) % MCV (80.0-100.0) fL RDW (11.5-15.5) % Plt Count (150-450) k/uL Neutrophils # (1.3-7.7) k/uL Monocytes # (0-1.0) k/uL Macrocytosis ABG pH 7.52 H (7.35-7.45) ABG pO2 81 L (83-108) mmHg ABG HCO3 34 H (21-25) mmol/L ABG Total CO2 36 H (19-24) mmol/L Potassium 3.2 L 3.3 L (3.5-5.1) mmol/L Carbon Dioxide 33 H (22-30) mmol/L BUN 34 H (7-17) mg/dL Glucose 163 H (74-99) mg/dL POC Glucose (mg/dL) (70-110) mg/dL Calcium 8.0 L (8.4-10.2) mg/dL 10/18/23 10/18/23 Range/Units 08:09 12:09 WBC (3.8-10.6) k/uL RBC (3.80-5.40) m/uL Hgb (11.4-16.0) gm/dL Hct (34.0-46.0) % MCV (80.0-100.0) fL RDW (11.5-15.5) % Plt Count (150-450) k/uL Neutrophils # (1.3-7.7) k/uL Monocytes # (0-1.0) k/uL Macrocytosis ABG pH (7.35-7.45) ABG pO2 (83-108) mmHg ABG HCO3 (21-25) mmol/L ABG Total CO2 (19-24) mmol/L Potassium (3.5-5.1) mmol/L Carbon Dioxide (22-30) mmol/L BUN (7-17) mg/dL Glucose (74-99) mg/dL POC Glucose (mg/dL) 209 H 165 H (70-110) mg/dL Calcium (8.4-10.2) mg/dL Assessment and Plan Assessment: Acute hypoxic respiratory failure secondary to multifocal pneumonia and pulmonary edema. Patient is 8 L high flow oxygen--> intubated on mechanical ventilator. Pulmonary edema likely due to cardiogenic with low ejection fraction 30 to 35%. Acute HFrEF with ejection fraction 30 -45% Multifocal pneumonia Sepsis/septic shock secondary to above. off pressor support COPD with acute exacerbation Lactic acidosis 7.0 on admission Alcoholic liver cirrhosis Ascites Patient is status post paracentesis on 10/13/2023. Hepatic steatosis and hyperbilirubinemia and elevated liver enzymes History of severe alcohol abuse. Quit 5 years ago History of chronic pancreatitis Anxiety/depression Plan: Patient is on mechanical ventilator. Continued on antibiotics in the form of Zosyn. on IV Solu-Medrol and DuoNebs as needed. Postop IV fluids and start Lasix 40 mg IV Cardiology team is on the case Paracentesis Cardiology and critical care team is on board.Discussed with her mother at bedside in detail. DVT prophylaxis with Lovenox subcu GI prophylaxis Prognosis is guarded.
--- NOTE | 2023-10-21 08:03 | P.PN ---
Subjective Patient is a 48-year-old female with a past medical history of severe alcohol abuse, quit 5 years ago, alcoholic liver cirrhosis and is on follow-up with her hydrate control tender at [facility], IBS, anxiety/depression and presents to ER with complaints of worsening shortness of breath. Patient states that she has been having shortness of breath for the past week and a half and did get worse in the last few days. Patient tried using her breathing treatments at home but did not get improvement. Patient was recently given antibiotics and prednisone by her physician. She has been increasingly weak and not feeling well. Patient presented to ER for evaluation. He was also complaining of cough without any sputum production. Also complaining of chest tightness and anxiety. Denies any leg swelling. No nausea or vomiting. Patient is also having increased abdominal girth. No prior history of paracentesis as per patient. Denies any fever at home. On admission patient was tachycardic and tachypneic and pulse ox 80% on room air. Currently requiring 8 L of oxygen via nasal cannula. CT of the abdomen pelvis showed patchy bilateral airspace consolidation consistent with multilobar pneumonia. Hepatic steatosis, abdominal ascites. Wa ll thickening of small bowel correlate for mild enteritis versus spontaneous bacterial peritonitis. CTA chest showed no PE. Patchy bilateral airspace consolidation consistent with multilobar pneumonia. Chest x-ray showed similar multifocal airspace opacities. Laboratory data showed WBC 16.5 hemoglobin 10.0 MCV 102.4 and platelets 188 and neutrophils 14.4 INR 1.7, D-dimer 2.8 Sodium 132 potassium 3.7 chloride 95 bicarbonate 24 BUN 18 and creatinine 0.84 and blood sugar 270 and lactic acid 7.0 on admission, calcium 8.1, total bilirubin level is 4.6 AST 113 ALT 68 and alk phos 208 Troponin 0.012 and proBNP 2040 and albumin 3.0 Influenza A, B, RSV and COVID-19 PCR not detected. 10/10/2023 Patient was transferred to MICU. Overnight patient's respiratory status worsened due to multifocal pneumonia and also patient is receiving fluids at 100 cc/h due to sepsis. Patient was intubated and is on assist-control. Patient is currently requiring pressor support. Chest x-ray this morning showed severe bilateral pulmonary infiltration which has worsened. Was given IV Lasix. 2D echocardiogram showed dilated LV and severe LV systolic dysfunction. Ejection fraction 30 to 35%. Laboratory showed WBC worsened to 26.6 hemoglobin 10.3 and platelets 190 Sodium 139 potassium 3.6 chloride 108 bicarb is 20 BUN 15 and creatinine 0.64 blood sugar 206 and A1c 6.8 lactic acid 5.4 this morning. Liver enzymes are elevated. Cardiology and pulmonary is on board. Patient is being continued on antibiotics changed to Zosyn. Procalcitonin level is elevated at 0.61. 10/11/2023 Patient is in the MICU. Intubated and sedated. On mechanical ventilator. Patient is also requiring pressor support with Levophed and also on dobutamine drip. Urine output remains low. Patient has been afebrile. Nutrition via NG tube. Patient was also started on IV hydration with normal saline at 75 cc/h. Chest x-ray showed multifocal airspace opacities are not significantly changed. Support tubes and proper positioning. Patient remains on antibiotics in the form of Zosyn. 2D echocardiogram showed left ventricular ejection fraction 30 to 35%. Mild right ventricular dilatation. Trace pericardial effusion and pleural effusion was identified. Laboratory data showed WBC 24.9 hemoglobin 9.6 and platelets 187 Sodium 137 potassium 4.2 chloride 102 bicarb is 26 BUN 25 and creatinine 1.1 and blood sugar 264. Patient is scheduled for paracentesis tomorrow. Blood cultures negative so far. Cardiology and pulmonary is on board. 10/12/2023 Patient is in the MICU. Remains intubated and sedated. On assist-control with respiratory of 20 tidal volume 350 and FiO2 40% and PEEP of 10. Continue to be on vasopressin and norepinephrine. Patient was also started on IV hydration with normal saline at 75 cc/h. Urine output is marginal. Patient remains on antibiotics Zosyn. Repeat chest x-ray this morning showed similar multifocal airspace opacities. Patient was given a dose of IV Lasix. Stable support tubes. Laboratory data showed WBC 24.6 hemoglobin 9.1 and platelets 144 BUN 40 and creatinine 1.09 and blood sugar is elevated at 312. Levemir dose increased to 12 units twice daily and continue with insulin sliding scale. Cardiology and critical care team is on board.Patient is scheduled to go for paracentesis today. 10/13/2023 Patient remains in the MICU. On assist-control with FiO2 35% and PEEP of 10. Tidal volume 350. Currently sedation is off. Chest x-ray showed stable exam mild pulmonary edema. Patient underwent ultrasound-guided paracentesis with 1800 cc clear straw- colored fluid drained. Pathology and culture is pending. Laboratory data showed WBC 25.4 hemoglobin 8.7 and platelets 127 BUN 49 creatinine 1.03 potassium 4.2 and blood sugar 159. Patient is being current on IV Solu-Medrol 60 mg every 6 hourly and is also on antibiotics, Zosyn. 10/14/2023 Patient is a pleasant 48 years old female who presents with bilateral pneumonia with acute hypoxic respiratory failure requiring intubation and mechanical ventilation. CTA of the chest was negative for PE which is done secondary to high d-dimer, CT of the abdomen showing thickened small bowel loops suspicious for enteritis, patient currently covered with Zosyn ProBNP is elevated 2039, chest x-ray showing mild was for congestion and ejection fraction is 30-35% patient is receiving IV Lasix and She Is Intubated. She Is Also on Salmeterol 60 Mg for Possible Acute COPD Exacerbation. Patient on Insulin Levemir 12 Units Twice Daily She Has Decompensated Liver Cirrhosis Status Post Paracentesis on 10/12 Where 1800 ML of Fluid Aspirated Patient today undergoing sedation holiday with propofol was off since yesterday Patient got agitated and she was placed on Precedex as well as IV morphine with little help so far Discussed with the bedside nurse Patient could not tolerate CPAP earlier, currently continued on mechanical ventilation with P5 and FiO2 of 40% Family at bedside 10/15/2023 Patient remains in the ICU intubated and sedated Over the last 2 days she was undergoing sedation holiday and propofol was stopped Today she was more agitated and she was placed back on a propofol Pulmonary level yesterday was 20 but given her worsening mentation we ordered a repeat ammonia level and KUB for abdomen slightly distended She had paracentesis related to her decompensated liver cirrhosis about 3 days ago with 1800 mL of fluid taken out We going to order a KUB but possible patient will require more paracentesis She received 1 dose of IV Lasix Normal saline 75 mL output 250 mL/h She remains on Zosyn and Solu-Medrol 60 mg Discussed with the bedside nurse 10/16/2023 Patient remains in the ICU intubated and sedated Yesterday after on repeat chest x-ray showing pulmonary congestion IV fluids of normal saline 50 mL was stopped and patient was started on IV Lasix 40 mg every 8 hours Repeat chest x-ray this morning testosterone pulmonary congestion, KUB showing nonobstructive pattern most likely patient has ascites related to her liver cirrhosis. Also patient placed on low-dose Lopressor suffers a percent respiratory blood pressure Metoprolol 25 mg 3 times a day per Video Editing Intern This she swelling is on board and patient glucose is controlled. 10/17/2023 Patient is from his ICU sedated and intubated. Today propofol was stopped and patient could follow command Weaning trial is attempting and patient was replaced back on before meals mode because of her tachypnea Also patient is planned to undergo paracentesis so between today and tomorrow for her ascites related to her liver cirrhosis. Extremities without obvious on Medrol 40 mg, Zosyn, IV Lasix 40 mg every 8 hours. 10/18/2023 Patient remains intubated and sedated in the ICU with pulmonary/critical care team followed closely. Patient under going sedation holiday for possible extubation She still has leukocytosis of 24,000, hemoglobin 8.6. IV fluids discontinued Currently on Solu-Medrol 40 mg, Zosyn and Lasix 40 mg 3 times a day. 10/19/2023 Patient is status post extubation today. She is awake alert and family at bedside trying to feed her. She developed a large direct well. She is calm pleasant looks little bit tired. Denies any specific symptoms with no chest pain or dyspnea. Abdomen is mildly distended but soft no tenderness. She remains on IV Solu-Medrol 40 mg twice daily, IV Lasix 40 twice daily. She is not an antibiotic Objective - Vital Signs Vital signs: Vital Signs Temp 98.3 F 10/19/23 08:00 Pulse 81 10/19/23 14:00 Resp 19 10/19/23 14:00 BP 114/66 10/19/23 14:00 Pulse Ox 93 L 10/19/23 14:00 FiO2 50 10/18/23 14:10 Intake & Output 10/18/23 10/19/23 10/19/23 18:59 06:59 18:59 Intake Total 434.920 512 310.429 Output Total 1560 975 195 Balance -1125.080 -463 115.429 Weight 77 kg 75 kg Intake: IV 286 512 182 .9 pressure bag 66 72 42 0.9 Sodium Chloride 220 240 140 Potassium Chloride 10 meq 200 In Water For Injection 1 100ml.bag @ 100 mls/hr IVPB Q1H ELIES[facility] Rx#: [id number] Intake, IV Titration 38.920 128.429 Amount Norepinephrine 4 mg In 128.429 Sodium Chloride 0.9% 250 ml @ 0.03 MCG/KG/MIN 6. 221 mls/hr IV .Q24H ELIES[facility] Rx#:[id number] propofoL 1,000 mg In 38.920 Empty Bag 1 bag @ 15 MCG/ KG/MIN 4.899 mls/hr IV . [id number] ELIESER Rx#:[id number] Tube Feeding 80 Other 30 Output: Urine 1260 975 195 Stool 300 Other: Voiding Method Indwelling Catheter Indwelling Catheter Indwelling Catheter ABP, PAP, CO, CI - Last Documented Arterial Blood Pressure 119/55 - Exam GENERAL: The patient is alert and oriented x3, not in any acute distress. Well developed, well nourished. HEENT: Pupils are round and equally reacting to light. EOMI. No scleral icterus. No conjunctival pallor. Normocephalic, atraumatic. No pharyngeal erythema. No thyromegaly. CARDIOVASCULAR: S1 and S2 present. No murmurs, rubs, or gallops. PULMONARY: Chest is clear to auscultation, no wheezing , no crackles. -ABDOMEN: Soft, nontender, mildly distended, normoactive bowel sounds. No palpable organomegaly. MUSCULOSKELETAL: No joint swelling or deformity. EXTREMITIES: No cyanosis, clubbing, or pedal edema. NEUROLOGICAL: Gross neurological examination did not reveal any focal deficits. SKIN: No rashes. no petechiae. - Labs CBC & Chem 7: 10/20/23 07:00 10/20/23 07:00 Labs: Abnormal Lab Results - Last 24 Hours (Table) 10/18/23 10/18/23 10/18/23 Range/Units 15:57 20:18 23:56 WBC (3.8-10.6) k/uL RBC (3.80-5.40) m/uL Hgb (11.4-16.0) gm/dL Hct (34.0-46.0) % MCV (80.0-100.0) fL RDW (11.5-15.5) % Plt Count (150-450) k/uL Neutrophils # (1.3-7.7) k/uL Macrocytosis Carbon Dioxide (22-30) mmol/L BUN (7-17) mg/dL Glucose (74-99) mg/dL POC Glucose (mg/dL) 221 H 138 H 133 H (70-110) mg/dL Calcium (8.4-10.2) mg/dL 10/19/23 10/19/23 10/19/23 Range/Units 04:15 04:15 04:15 WBC 30.8 H (3.8-10.6) k/uL RBC 2.49 L (3.80-5.40) m/uL Hgb 8.5 L (11.4-16.0) gm/dL Hct 26.4 L (34.0-46.0) % MCV 106.1 H (80.0-100.0) fL RDW 21.5 H (11.5-15.5) % Plt Count 69 L (150-450) k/uL Neutrophils # 28.1 H (1.3-7.7) k/uL Macrocytosis Marked A Carbon Dioxide 35 H (22-30) mmol/L BUN 36 H (7-17) mg/dL Glucose 135 H (74-99) mg/dL POC Glucose (mg/dL) 144 H (70-110) mg/dL Calcium 8.1 L (8.4-10.2) mg/dL 10/19/23 10/19/23 Range/Units 08:36 12:05 WBC (3.8-10.6) k/uL RBC (3.80-5.40) m/uL Hgb (11.4-16.0) gm/dL Hct (34.0-46.0) % MCV (80.0-100.0) fL RDW (11.5-15.5) % Plt Count (150-450) k/uL Neutrophils # (1.3-7.7) k/uL Macrocytosis Carbon Dioxide (22-30) mmol/L BUN (7-17) mg/dL Glucose (74-99) mg/dL POC Glucose (mg/dL) 138 H 131 H (70-110) mg/dL Calcium (8.4-10.2) mg/dL Assessment and Plan Assessment: Acute hypoxic respiratory failure secondary to multifocal pneumonia and pulmonary edema. Patient is 8 L high flow oxygen--> intubated on mechanical ventilator. Pulmonary edema likely due to cardiogenic with low ejection fraction 30 to 35%. Acute HFrEF with ejection fraction 30 -45% Multifocal pneumonia Sepsis/septic shock secondary to above. off pressor support COPD with acute exacerbation Lactic acidosis 7.0 on admission Alcoholic liver cirrhosis Ascites Patient is status post paracentesis on 10/13/2023. Hepatic steatosis and hyperbilirubinemia and elevated liver enzymes History of severe alcohol abuse. Quit 5 years ago History of chronic pancreatitis Anxiety/depression Plan: Patient is status post extubated and transferred to the general medical floor patient will be transferred out of the ICU to the general medical floor No antibiotic on IV Solu-Medrol and DuoNebs as needed. c/w Lasix 40 mg IV Cardiology and critical care team is on board.Discussed with her mother at bedside in detail. DVT prophylaxis with Lovenox subcu GI prophylaxis Prognosis is guarded.
--- NOTE | 2023-10-21 10:24 | P.PN ---
Subjective Progress Note Date: 10/21/23 This is a pleasant 48-year-old female patient with a known history of alcoholism with subsequent cirrhosis and chronic pancreatitis. Quit drinking approximately 5 years ago. She does have chronic and ongoing tobacco dependence, anxiety/depression, gastroesophageal reflux disease. She has a 2 week history of initially a dry nonproductive cough that had progressed into a loose congested cough with shortness of breath. She presented here to the emergency room yesterday. DT scan of the abdomen and pelvis revealed patchy bilateral airspace consolidation consistent with multifocal lobar pneumonia. Hepatic steatosis. Abdominal ascites. Wall thickening of the small bowel, correlate for mild enteritis versus spontaneous bacterial peritonitis. CT angiogram ruled out pulmonary embolism. There is again noted patchy bilateral airspace consolidation consistent with multilobar pneumonia. Chest x-ray shows similar multifocal airspace opacities. Count 16.5. Hemoglobin 10.0. Platelets 188. INR 1.7. D-dimer 2.80. Sodium 132. Potassium 3.7. Bicarb 24. BUN 18. Creatinine 0.84. Glucose 270. Initial lactic acid 7.0. Currently 2.2. AST 113. ALT 68. Alk phos 208. ProBNP 2040. Lipase 49. Serum alcohol less than 10. Viral screen negative. She is seen today in consultation in the emergency department. She is currently resting on a stretcher. She is awake and alert. She is requiring 10 L high flow nasal cannula to maintain O2 saturations in the 90s. She drops into the 70s on room air. She was initiated on ceftriaxone and azithromycin azithromycin. NicoDerm patch in place. She received 3 L of fluid resuscitation. Normal saline at 100 ML's per hour. Patient with very today on 10/10/2023, I saw this patient yesterday on consultation, and recommended transferring the patient to the ICU after she was seen in the ER. Apparently the patient was transferred to the ICU, and early this morning her pulmonary status continued to deteriorate, patient developed worsening pulmonary edema with underlying pneumonia, patient did receive significant amount of fluids for her sepsis presentation, and she developed pulmonary edema in addition to her underlying pneumonia. She is now on assist- control rate of 20 tidal volume 350 FiO2 100% and PEEP of 10. ABG this morning showed a pO2 of 80 pCO2 43 pH of 7.34. Patient had an echocardiogram showed severe LV dysfunction with ejection fraction of 30%., There was no evidence of valvular heart disease. Considering the findings, Lasix was given at 60 mg IV push every 12 hours, patient remains empirically on Zosyn for pneumonia and for possible abdominal sepsis. She is yet to have paracentesis to rule out acute spontaneous peritonitis in the last 24 hours, patient developed worsening pulmonary edema, and worsening abdominal distention with worsening ascites. WBC count today is 26.6 hemoglobin is 10.3. Basic metabolic profile is relatively normal, renal profile is normal. Calcitonin level is 0.61. BNP yesterday was 2039, influenza and Legionella as well as RSV and COVID-19 screening came back all negative Reevaluated today on 10/11/2023, patient remains in the ICU, intubated and mechanically ventilated. Patient is on assist-control rate of 20 tidal volume 350 FiO2 50% PEEP of 12, ABG showed a pO2 of 128 pCO2 43 pH of 7.41, hence I dropped the PEEP down to 10 and FiO2 down to 45%. Chest x-ray is showing improvement in her pneumonia and improvement in her pulmonary edema. Urine output remains marginal at 25 to 30 cc/h, blood pressure remains marginal in spite of being on dobutamine remain at 2.5 mcg/kg/min norepinephrine at 0.15 mcg/kg/min propofol 40 mcg/kg/min, patient is also on IV fluids at KVO which I have increased today to 75 cc/h and patient remains on Zosyn empirically for pneumonia, and for possible peritonitis. Interventional radiology is delaying and not planning to do paracentesis at this point mostly because of patient's blood pressure is marginal. I will recommend vasopressin on this patient, and will likely discontinue dobutamine on this patient. I have discontinued her L asix, and started IV fluid at 0.9 normal saline 75 cc/h will initiate nutritional support/vital HP today. Patient remains critically ill, but nonetheless she is improving, updated her family/father and mother at bedside on her condition. WBC count is 24.9 hemoglobin 9.6. WBC count is improving co mpared to yesterday basic metabolic profile is normal renal profile showed a BUN of 25 creatinine 1.10 slightly worse compared to admission creatinine of 0.64, and that is not surprising Patient was reevaluated today on 10/12/2023, remains in the ICU, intubated and mechanically ventilated, patient is on assist-control rate of 20 tidal volume 350 FiO2 45% PEEP of 10 ABG showed a pO2 of 88 pCO2 37 pH of 7.44. Urine output is marginal roughly 10 to 15 cc/h, hence I recommended a dose of Lasix to be given 40 mg IV push, will hold on fluid boluses since her chest x-ray is showing worsening interstitial edema, slightly worse compared to the chest x-ray she had yesterday. However the patient is now on lesser PEEP and she is on lesser FiO2. Scheduled to have paracentesis today. Patient is on vasopressin at 0.03, she is also on norepinephrine at 0.03 mcg/kg/min IV fluid at 75 cc/h in the form of 0.9 normal saline. Cultures of the blood remain negative, cultures from the peritoneal fluid will be pending once the patient undergoes paracentesis. Patient remains on Zosyn WBC count today is 24.6, improving hemoglobin is 9.1 basic metabolic profile is normal BUN is 40 creatinine 1.09, again her blood cultures are negative so far, Patient was noted today on 10/13/2023, remains in the ICU, intubated and mechanically ventilated. She is now on assist-control rate of 20 tidal volume 350 FiO2 35% PEEP is 10 ABG showed a pO2 of 148 pCO2 39 pH of 7.43 has significant improvement noted in her ABG and it is correlated with the improvement noted on the chest x-ray. I cut down the PEEP down to 5 and FiO2 was made 40%. Patient remains on vasopressin but she is off norepinephrine or vasopressin at 0.02 units/min, she is on propofol at 30 mcg/kg/min IV fluid remains at 75 cc/h vital HP at 35 cc/h. Her urine output has been marginal, fluid boluses were given about 1 L, if no improvement may at that point consider diuresing the patient. Remains on Zosyn empirically, cultures remain negative. Negative cultures also on the peritoneal fluid so far negative blood cultures WBC count is down to 25.4 hemoglobin 8.7, platelets are 1 27,000 basic metabolic profile is normal renal profile is acceptable with a BUN of 49 creat 1.03. Blood sugar a bit elevated at 178 chest x-ray continues to show improvement with mild interstitial edema/infiltrates Reevaluate today on 10/14/2023, remains in the ICU intubated and mechanically ventilated, patient is on assist-control rate of 20 tidal volume 350 FiO2 40% PEEP is 5 ABG showed a pO2 of 91 pCO2 35 pH of 7.45, hence no changes were made in her ventilator settings. Patient is now completely off pressors, off norepinephrine and off vasopressin, maintained on relatively low-dose of propofol at 20 mcg/kg/min, her IV fluid is running at 75 cc/h, chest x-ray showed mild interstitial edema/infiltrates, given Lasix and she put out 300 cc of urine almost within a short.. Of time after Lasix was given. Patient is having issues with residual from enteral feeding and I will hold the feeding for now temporarily. Remains on Zosyn, her endotracheal tube seems to be sitting high in the trachea and it will be advanced down about 2 cm. Chest x-ray again was reviewed and suggestive of mild interstitial edema. Ammonia level was checked because of her mental status and it seems to be normal her WBC count is coming down to 22.4 hemoglobin is 8.6. Basic metabolic profile is normal renal profile is normal and sugar is 163 sputum is positive for Marleni albicans, however this has no clinical significance at this point Patient was reevaluated today on 10/15/2023, remains in the ICU intubated and mechanically ventilated, patient is on assist-control rate of 20 tidal volume 350 FiO2 50% and PEEP of 5 ABG showed a pO2 of 81 pCO2 35 pH of 7.43. Chest x- ray today showed slight worsening of her interstitial edema, hence I am recommending Lasix again 40 mg IV push was given, and I am recommending Lasix to be given twice daily. Patient is receiving vital HP at 35 cc/h IV fluid at 75 cc/h and I will cut it down since the patient is developing intermittent CHF. Remains on propofol at 50 mcg/kg/min, her last echocardiogram showed ejection fraction of 30 to 35%. CBC is improving down to 21.8 hemoglobin is 8.6 platelets are 106 sodium is 145 hence we will change her IV fluid to D5 4 5, her bicarb is 19. BUN is 40 creatinine 0.71, overall the patient is improving, however unable to cut down sedation significantly as she becomes extremely agitated, did not tolerate Precedex when we tried Precedex couple of days ago. Intermittently the patient is requiring Ativan to keep her synchronous with the ventilator. Sending her chest x-ray appearance today, I am recommending diuretics and I am not recommending weaning at this point yet. I am cutting down her Solu-Medrol to 40 mg IV push every 12 hours keeping her on Lovenox 40 mg subcu daily for DVT prophylaxis. Doing Zosyn for her bilateral pneumonia on presentation. Progress note dated October 16, 2023. This is a 48-year-old female who was admitted to the hospital on October 08, with a diagnosis of pneumonia, heart failure, alcoholic liver disease, and ascites. The patient was intubated for respiratory failure on October 10, 2023. She remains on the mechanical ventilator. Settings include volume assist- control, rate 20, tidal volume 350, FiO2 40%, PEEP of 5. Blood gases show pO2 of 83, pCO2 of 34, and a pH of 7.49. This blood gas is consistent with a mild respiratory alkalosis. The patient is receiving propofol at 20 mcg/kg/min, and D5 with half-normal saline at 50 cc an hour. In addition, the patient is receiving vital high-protein at 35 cc an hour, which is goal. Labs include a white count of 24.8, hemoglobin 8.7, hematocrit 28.8, and a platelet count of 98,000. PT is 16.1 with an INR of 1.6. Sodium 144, potassium 3.9, chlorides 114, CO2 25, BUN 39, creatinine 0.71. Glucose is 122. Albumin is 2.6. AST is 89, ALT is 73. The patient's total bilirubin is 3.0. Microbiologic sampling is negative or pending. Chest x-ray shows some diffuse bilateral patchy airspace disease. Progress note dated October 17, 2023. This is a 48-year-old female who was admitted to the hospital on October 08, with a diagnosis of pneumonia, heart failure, alcoholic liver disease, and ascites. The patient was intubated for respiratory failure on October 10, 2023. She remains on the mechanical ventilator. Settings include volume assist- control, rate 20, tidal volume 350, FiO2 40%, and PEEP of 5. Blood gases show pO2 of 86, pCO2 34, pH is 7.51. This blood gas was consistent with a combined respiratory and metabolic alkalosis. The patient is on saline at KVO, and vital 1.2 at 40 cc an hour. Goal is 40 cc an hour. The patient will have a daily int erruption of sedation and a spontaneous breathing trial, with a pressure support of 8 and CPAP of 5. White count is 36.1, hemoglobin 8.8, hematocrit 29.1, and platelet count 99,000. Sodium 144, potassium 3.2, chlorides 109, CO2 27, anion gap 8, BUN 40, creatinine 0.71. Albumin is 2.6. Total bilirubin is elevated at 3. AST is 110, and ALT is 91. Microbiology is pending are negative. Chest x- ray shows diffuse interstitial and patchy opacities throughout both lungs, which may be slightly improved. Abdominal ultrasound shows some moderate abdominal ascites. Progress note dated October 18, 2023. 48-year-old female admitted to the hospital back on October 08, with a diagnosis of pneumonia, heart failure, alcoholic liver disease, and ascites. The patient remains on the mechanical ventilator. The patient was actually intubated on October 10. Current ventilator settings include volume assist-control, rate 20, tidal volume 350, FiO2 40%, PEEP of 5. Blood gases show pO2 of 81, pCO2 42, the pH is 7.52. The patient remains on propofol at 30 mcg/kg/min, and saline at KVO. She is getting vital 1.2 at 40 cc an hour, which is goal. Yesterday, she had a daily interruption of sedation with a spontaneous breathing trial, with a pressure support of 8 and CPAP of 5. She lasted about 2 hours. She did have a paracentesis abdominis yesterday, and 3.2 L was removed. White count is 34.1, hemoglobin 8.6, hematocrit 27.5, platelet count 78,000. Sodium 142, potassium 3.3, chlorides 106, CO2 33, BUN 34, creatinine 0.6. Calcium is 8. Culture data is thus far negative. Chest x-ray today, it is a bit improved, compared to the prior x-ray. Progress note dated October 19, 2023. 48-year-old female admitted to the hospital back on October 08 with a diagnosis of pneumonia, heart failure, alcoholic liver disease, and ascites. Yesterday, the patient was placed on spontaneous breathing trial, with pressure support and CPAP. She had excellent weaning parameters, and a blood gas, and she was successfully extubated. Currently, the patient is on room air. She is getting saline at KVO. Her Lasix dose was decreased from every 8 hours, to every 12 hours. White count is 30.8, hemoglobin 8.5, hematocrit 26.4, platelet count was 69,000. Sodium 144, potassium 3.8, chlorides 105, CO2 35, BUN 36, creatinine 0.6. Magnesium is 2.1. Calcium 8.1. Chest x-ray shows small lung volumes, and diffuse haziness. Progress note dated October 20, 2023. 48-year-old female, seen today in room 267. Currently, she is on room air. She is getting saline at KVO. The patient is doing very well status post recent extubation. Current laboratory data includes a white count 23.7, hemoglobin 9.4, hematocrit 28.1, and platelet count 71,000. Sodium 136, potassium 3.6, chloride 99, CO2 28, BUN is 32, with creatinine 0.47. Calcium is 8. Glucose is 237. Microbiology is currently pending are negative. The x-ray today shows some airspace disease, in the right middle lobe, and right lower lobe. The patient is seen today October 21, 2023 in follow-up on the regular medical floor. She was transferred out of the intensive care unit yesterday. She is doing very well. She is resting comfortably in bed. She is awake and alert in no acute distress. She is maintaining O2 saturations in the 90s on room air. No IV fluids. She is having some recurrent fullness in her abdomen, suspect recurrent ascites. Paracentesis fluid revealed no growth. Glucose 236. She remains on DuoNeb and elations, Pulmicort and performing scintillations, IV Solu-Medrol. Objective - Vital Signs Vital signs: Vital Signs Temp 98.3 F 10/21/23 07:50 Pulse 86 10/21/23 09:07 Resp 18 10/21/23 07:50 BP 104/59 10/21/23 07:50 Pulse Ox 84 L 10/21/23 08:42 FiO2 50 10/18/23 14:10 Intake & Output 10/20/23 10/21/23 10/21/23 18:59 06:59 18:59 Intake Total 592 360 Output Total 110 Balance 482 360 Weight 77.7 kg 77.8 kg Intake: IV 92 .9 pressure bag 12 0.9 Sodium Chloride 80 Oral 500 360 Output: Urine 110 Other: Voiding Method Indwelling Catheter # Voids 1 ABP, PAP, CO, CI - Last Documented Arterial Blood Pressure 111/50 - Exam A very pleasant 48-year-old female. No acute distress, awake and alert, room air HEENT examination is grossly unremarkable Neck supple. Full range of motion. No adenopathy thyromegaly or neck vein distention Cardiovascular examination reveals regular rhythm rate. S1-S2 normal. No S3 or S4. No discernible murmur noted. Lungs reveal scattered bilateral rhonchi. Few scattered crackles noted. No wheezes. Breath sounds are equal bilaterally. Abdomen soft, but distended, with likely ascites. No masses. The abdomen is less distended today Extremities are intact. No cyanosis or clubbing. Diffuse anasarca is noted Skin is without rash or lesion Neurologic examination is brief but nonfocal. The patient has diffuse weakness - Labs CBC & Chem 7: 10/20/23 07:00 10/20/23 07:00 Labs: Abnormal Lab Results - Last 24 Hours (Table) 10/20/23 10/20/23 10/21/23 Range/Units 12:04 16:10 07:51 POC Glucose (mg/dL) 282 H 231 H 236 H (70-110) mg/dL Assessment and Plan Assessment: Acute hypoxic respiratory failure secondary to acute bilateral multilobar pneumonia as well as some fluid overload/CHF, status post intubation and mechanical ventilation on October 10, 2023. S/P successful extubation on October 18, 2023. Acute pulmonary edema, cardiogenic in origin, with an ejection fraction of 20% Acute exacerbation of chronic obstructive pulmonary disease secondary to above Ascites, status post paracentesis abdominis Chronic and ongoing tobacco dependence History of heavy alcohol abuse however quit 5 years ago History of cirrhosis secondary to above History of chronic pancreatitis secondary to above History of anxiety/depression Plan: The patient was seen and evaluated Labs and medications reviewed Currently stable and on room air Plan is to go home to her parents at discharge Will require close follow-up regarding cirrhosis/ascites I have personally seen and examined the patient, performed the documentation and the assessment and plan as written. Number of minutes spent on the visit: 10.
[2023-10-21 12:31] LABS: Glucose,Whole Blood 231 mg/dL (70-110)
[2023-10-21 13:20] LABS: Anisocytosis Moderate; HCT 28.3 % (34.0-46.0); HGB 8.9 gm/dL (11.4-16.0); Hypochromasia Marked; MCH 34.1 pg (25.0-35.0); MCHC 31.6 g/dL (31.0-37.0); MCV 107.9 fL (80.0-100.0); Macrocytosis Marked; RBC 2.62 m/uL (3.80-5.40); RDW 21.6 % (11.5-15.5); WBC 34.3 k/uL (3.8-10.6)
[2023-10-21 13:28] LABS: African American GFR (CKD) >90 (>60 ml/min/1.73 sqM); Anion Gap 6 mmol/L; Blood Urea Nitrogen 25 mg/dL (7-17); Calcium 7.6 mg/dL (8.4-10.2); Carbon Dioxide 28 mmol/L (22-30); Chloride 96 mmol/L (98-107); Glucose 218 mg/dL (74-99); Non-African American GFR(CKD) >90 (>60 ml/min/1.73 sqM); Potassium 3.8 mmol/L (3.5-5.1); Sodium 130 mmol/L (137-145)
[2023-10-21 13:54] LABS: Platelet Count 94 k/uL (150-450)
[2023-10-21 13:55] LABS: Lymphocytes # (M) 0.34 k/uL (1.0-4.8); Monocytes # (M) 0.34 k/uL (0-1.0); Neutrophils # (M) 33.61 k/uL (1.3-7.7); Neutrophils % (M) 98 %; Nucleated Red Blood Cells 0 /100 WBC (0-0); Total Cells Counted 100
[2023-10-21 13:56] LABS: Anisocytosis (M) Present; Hypochromasia (M) Present; Polychromasia Present; Target Cells Present; Tear Drop Cells Present
--- NOTE | 2023-10-21 16:24 | P.PN ---
Subjective Progress Note Date: 10/21/23 PROGRESS NOTE The patient is a 48-year-old female with a history of chronic tobacco use, prior history of alcohol intake with liver cirrhosis, ascites and chronic pancreatitis who presented with symptoms of progressive dyspnea and was diagnosed with bilateral multilobar pneumonia, this morning she got more dyspneic requiring mechanical ventilation. Cardiology consultation was requested for possible CHF. The patient has no prior documented history of CAD. Her echocardiogram in 2019 showed a preserved systolic function. She is in sinus mechanism, on low-dose of norepinephrine. She has no evidence of malignant arrhythmia. On admission she had leukocytosis, elevated plasma lactic acid. Her troponin was less then 0.012 and her NT proBNP was 2040. She was in sinus mechanism with sinus tachycardia and intermittent incomplete left bundle branch block that appears to be rate related. Her IVCD was not noted in 2019. The nursing staff have been suctioning greenish-yellowish sputum from her ET tube. September 10: The patient remains intubated and sedated. She is on IV dobutamine 2.5 mcg/kg/m in in addition to norepinephrine. Her echocardiogram showed an impaired systolic function with an ejection fraction of 30 to 35%. Of note that the patient had a normal LV systolic function in 2019. She continues to be in sinus mechanism and sinus tachycardia. There is no evidence of malignant arrhythmia. Her urinary output is borderline on IV Lasix. Her chest x-ray shows improvement in her infiltrate. September 11: The patient remains intubated and sedated. Off dobutamine on the lower dose of norepinephrine and continues to be on vasopressin. She has been getting IV fluid at 75 cc an hour. Her urinary output is borderline. She is afebrile. She continues to be in sinus mechanism with no evidence of atrial fibrillation. She may undergo paracentesis today. 10/16 Patient seen and examined. Patient was previously receiving IV fluids however has been receiving more aggressive diuresis. Lasix was increased to 80 mg 3 times a day with good urine output. Creatinine has been stable. Remains on ventilator with FiO2 40% and PEEP of 5. Echo showed ejection fraction 30-35% 10/17 Patient seen and examined. Patient has been increased on Lasix up to 3 times a day and has had good urine output with -2 and half liters over last 24 hours. Echo showing decrease EF 30 to 35%. Blood pressure still borderline. Remains on ventilator. Undergoing paracentesis today. White blood cell count 36, Cr stable at 0.7. 10/18 Patient remains on Lasix IV 40 mg every 8 hours with almost 5 L output yesterday. She has been tolerating spontaneous breathing trial today and alert on ventilator and denies any chest pain or pressure. Creatinine stable. Blood pressures remain borderline however tolerating metoprolol. 10/19 Patient seen and examined. Lasix was decreased to twice a day. Patient was extubated yesterday. She denies any chest pain or pressure. Biological father did have a history of LA in the past. 10/20 Patient seen and examined. Patient denies any chest pain or pressure. Still has some lower extremity edema. Does not have much of an appetite. White blood cell count 23, hemoglobin 9.4, creatinine 0.4 10/21 ECHO reviewed and shows preserved EF 55%. Abdominal distention is slightly worse with abdominal pain. She has decreased appetite. WBC increased 34.3, Hgb 8.9. Medications: PHYSICAL EXAMINATION: Vitals reviewed LUNGS: Clear to auscultation, anteriorly HEART: Regular rate and rhythm, S1, S2. No S3. No systolic murmur ABDOMEN: Soft, positive bowel sounds, + ascites EXTREMETIES: 2+ edema IMPRESSION: 1. Acute respiratory failure with multilobar bilateral pneumonia, requiring mechanical ventilation 2. Cardiomyopathy by echocardiogram with ejection fraction of 30 to 35%, could be acute related to the infectious process vs possible alcohol induced; improved to EF 55% 3. History of cirrhosis and recurrent ascites related to a prior history of alcohol intake. Patient has not been drinking for 5 years 4. Chronic tobacco use 5. MARANDA, improved 6. Leukocytosis PLAN: ECHO shows improved EF, symptoms not related to heart failure, likely related to liver failure, no further testing planned from cardiology. Consider eval by liver specialist. Objective - Vital Signs Vital signs: Vital Signs Temp 98.5 F 10/21/23 12:22 Pulse 112 H 10/21/23 16:05 Resp 18 10/21/23 12:22 BP 109/73 10/21/23 12:22 Pulse Ox 92 L 10/21/23 12:22 FiO2 50 10/18/23 14:10 Intake & Output 10/20/23 10/21/23 10/21/23 18:59 06:59 18:59 Intake Total 592 360 Output Total 110 Balance 482 360 Weight 77.7 kg 77.8 kg Intake: IV 92 .9 pressure bag 12 0.9 Sodium Chloride 80 Oral 500 360 Output: Urine 110 Other: Voiding Method Indwelling Catheter # Voids 1 ABP, PAP, CO, CI - Last Documented Arterial Blood Pressure 111/50 - Labs CBC & Chem 7: 10/21/23 13:02 10/21/23 13:02 Labs: Abnormal Lab Results - Last 24 Hours (Table) 10/21/23 10/21/23 10/21/23 Range/Units 07:51 12:29 13:02 WBC 34.3 H (3.8-10.6) k/uL RBC 2.62 L (3.80-5.40) m/uL Hgb 8.9 L (11.4-16.0) gm/dL Hct 28.3 L (34.0-46.0) % MCV 107.9 H (80.0-100.0) fL RDW 21.6 H (11.5-15.5) % Plt Count 94 L (150-450) k/uL Neutrophils # (Manual) 33.61 H (1.3-7.7) k/uL Lymphocytes # (Manual) 0.34 L (1.0-4.8) k/uL Macrocytosis Marked A Sodium (137-145) mmol/L Chloride (98-107) mmol/L BUN (7-17) mg/dL Creatinine (0.52-1.04) mg/dL Glucose (74-99) mg/dL POC Glucose (mg/dL) 236 H 231 H (70-110) mg/dL Calcium (8.4-10.2) mg/dL 10/21/23 Range/Units 13:02 WBC (3.8-10.6) k/uL RBC (3.80-5.40) m/uL Hgb (11.4-16.0) gm/dL Hct (34.0-46.0) % MCV (80.0-100.0) fL RDW (11.5-15.5) % Plt Count (150-450) k/uL Neutrophils # (Manual) (1.3-7.7) k/uL Lymphocytes # (Manual) (1.0-4.8) k/uL Macrocytosis Sodium 130 L (137-145) mmol/L Chloride 96 L (98-107) mmol/L BUN 25 H (7-17) mg/dL Creatinine 0.42 L (0.52-1.04) mg/dL Glucose 218 H (74-99) mg/dL POC Glucose (mg/dL) (70-110) mg/dL Calcium 7.6 L (8.4-10.2) mg/dL
--- NOTE | 2023-10-22 08:40 | P.PN ---
Subjective Progress Note Date: 10/22/23 This is a pleasant 48-year-old female patient with a known history of alcoholism with subsequent cirrhosis and chronic pancreatitis. Quit drinking approximately 5 years ago. She does have chronic and ongoing tobacco dependence, anxiety/depression, gastroesophageal reflux disease. She has a 2 week history of initially a dry nonproductive cough that had progressed into a loose congested cough with shortness of breath. She presented here to the emergency room yesterday. DT scan of the abdomen and pelvis revealed patchy bilateral airspace consolidation consistent with multifocal lobar pneumonia. Hepatic steatosis. Abdominal ascites. Wall thickening of the small bowel, correlate for mild enteritis versus spontaneous bacterial peritonitis. CT angiogram ruled out pulmonary embolism. There is again noted patchy bilateral airspace consolidation consistent with multilobar pneumonia. Chest x-ray shows similar multifocal airspace opacities. Count 16.5. Hemoglobin 10.0. Platelets 188. INR 1.7. D-dimer 2.80. Sodium 132. Potassium 3.7. Bicarb 24. BUN 18. Creatinine 0.84. Glucose 270. Initial lactic acid 7.0. Currently 2.2. AST 113. ALT 68. Alk phos 208. ProBNP 2040. Lipase 49. Serum alcohol less than 10. Viral screen negative. She is seen today in consultation in the emergency department. She is currently resting on a stretcher. She is awake and alert. She is requiring 10 L high flow nasal cannula to maintain O2 saturations in the 90s. She drops into the 70s on room air. She was initiated on ceftriaxone and azithromycin azithromycin. NicoDerm patch in place. She received 3 L of fluid resuscitation. Normal saline at 100 ML's per hour. Patient with very today on 10/10/2023, I saw this patient yesterday on consultation, and recommended transferring the patient to the ICU after she was seen in the ER. Apparently the patient was transferred to the ICU, and early this morning her pulmonary status continued to deteriorate, patient developed worsening pulmonary edema with underlying pneumonia, patient did receive significant amount of fluids for her sepsis presentation, and she developed pulmonary edema in addition to her underlying pneumonia. She is now on assist- control rate of 20 tidal volume 350 FiO2 100% and PEEP of 10. ABG this morning showed a pO2 of 80 pCO2 43 pH of 7.34. Patient had an echocardiogram showed severe LV dysfunction with ejection fraction of 30%., There was no evidence of valvular heart disease. Considering the findings, Lasix was given at 60 mg IV push every 12 hours, patient remains empirically on Zosyn for pneumonia and for possible abdominal sepsis. She is yet to have paracentesis to rule out acute spontaneous peritonitis in the last 24 hours, patient developed worsening pulmonary edema, and worsening abdominal distention with worsening ascites. WBC count today is 26.6 hemoglobin is 10.3. Basic metabolic profile is relatively normal, renal profile is normal. Calcitonin level is 0.61. BNP yesterday was 2039, influenza and Legionella as well as RSV and COVID-19 screening came back all negative Reevaluated today on 10/11/2023, patient remains in the ICU, intubated and mechanically ventilated. Patient is on assist-control rate of 20 tidal volume 350 FiO2 50% PEEP of 12, ABG showed a pO2 of 128 pCO2 43 pH of 7.41, hence I dropped the PEEP down to 10 and FiO2 down to 45%. Chest x-ray is showing improvement in her pneumonia and improvement in her pulmonary edema. Urine output remains marginal at 25 to 30 cc/h, blood pressure remains marginal in spite of being on dobutamine remain at 2.5 mcg/kg/min norepinephrine at 0.15 mcg/kg/min propofol 40 mcg/kg/min, patient is also on IV fluids at KVO which I have increased today to 75 cc/h and patient remains on Zosyn empirically for pneumonia, and for possible peritonitis. Interventional radiology is delaying and not planning to do paracentesis at this point mostly because of patient's blood pressure is marginal. I will recommend vasopressin on this patient, and will likely discontinue dobutamine on this patient. I have discontinued her L asix, and started IV fluid at 0.9 normal saline 75 cc/h will initiate nutritional support/vital HP today. Patient remains critically ill, but nonetheless she is improving, updated her family/father and mother at bedside on her condition. WBC count is 24.9 hemoglobin 9.6. WBC count is improving co mpared to yesterday basic metabolic profile is normal renal profile showed a BUN of 25 creatinine 1.10 slightly worse compared to admission creatinine of 0.64, and that is not surprising Patient was reevaluated today on 10/12/2023, remains in the ICU, intubated and mechanically ventilated, patient is on assist-control rate of 20 tidal volume 350 FiO2 45% PEEP of 10 ABG showed a pO2 of 88 pCO2 37 pH of 7.44. Urine output is marginal roughly 10 to 15 cc/h, hence I recommended a dose of Lasix to be given 40 mg IV push, will hold on fluid boluses since her chest x-ray is showing worsening interstitial edema, slightly worse compared to the chest x-ray she had yesterday. However the patient is now on lesser PEEP and she is on lesser FiO2. Scheduled to have paracentesis today. Patient is on vasopressin at 0.03, she is also on norepinephrine at 0.03 mcg/kg/min IV fluid at 75 cc/h in the form of 0.9 normal saline. Cultures of the blood remain negative, cultures from the peritoneal fluid will be pending once the patient undergoes paracentesis. Patient remains on Zosyn WBC count today is 24.6, improving hemoglobin is 9.1 basic metabolic profile is normal BUN is 40 creatinine 1.09, again her blood cultures are negative so far, Patient was noted today on 10/13/2023, remains in the ICU, intubated and mechanically ventilated. She is now on assist-control rate of 20 tidal volume 350 FiO2 35% PEEP is 10 ABG showed a pO2 of 148 pCO2 39 pH of 7.43 has significant improvement noted in her ABG and it is correlated with the improvement noted on the chest x-ray. I cut down the PEEP down to 5 and FiO2 was made 40%. Patient remains on vasopressin but she is off norepinephrine or vasopressin at 0.02 units/min, she is on propofol at 30 mcg/kg/min IV fluid remains at 75 cc/h vital HP at 35 cc/h. Her urine output has been marginal, fluid boluses were given about 1 L, if no improvement may at that point consider diuresing the patient. Remains on Zosyn empirically, cultures remain negative. Negative cultures also on the peritoneal fluid so far negative blood cultures WBC count is down to 25.4 hemoglobin 8.7, platelets are 1 27,000 basic metabolic profile is normal renal profile is acceptable with a BUN of 49 creat 1.03. Blood sugar a bit elevated at 178 chest x-ray continues to show improvement with mild interstitial edema/infiltrates Reevaluate today on 10/14/2023, remains in the ICU intubated and mechanically ventilated, patient is on assist-control rate of 20 tidal volume 350 FiO2 40% PEEP is 5 ABG showed a pO2 of 91 pCO2 35 pH of 7.45, hence no changes were made in her ventilator settings. Patient is now completely off pressors, off norepinephrine and off vasopressin, maintained on relatively low-dose of propofol at 20 mcg/kg/min, her IV fluid is running at 75 cc/h, chest x-ray showed mild interstitial edema/infiltrates, given Lasix and she put out 300 cc of urine almost within a short.. Of time after Lasix was given. Patient is having issues with residual from enteral feeding and I will hold the feeding for now temporarily. Remains on Zosyn, her endotracheal tube seems to be sitting high in the trachea and it will be advanced down about 2 cm. Chest x-ray again was reviewed and suggestive of mild interstitial edema. Ammonia level was checked because of her mental status and it seems to be normal her WBC count is coming down to 22.4 hemoglobin is 8.6. Basic metabolic profile is normal renal profile is normal and sugar is 163 sputum is positive for Marleni albicans, however this has no clinical significance at this point Patient was reevaluated today on 10/15/2023, remains in the ICU intubated and mechanically ventilated, patient is on assist-control rate of 20 tidal volume 350 FiO2 50% and PEEP of 5 ABG showed a pO2 of 81 pCO2 35 pH of 7.43. Chest x- ray today showed slight worsening of her interstitial edema, hence I am recommending Lasix again 40 mg IV push was given, and I am recommending Lasix to be given twice daily. Patient is receiving vital HP at 35 cc/h IV fluid at 75 cc/h and I will cut it down since the patient is developing intermittent CHF. Remains on propofol at 50 mcg/kg/min, her last echocardiogram showed ejection fraction of 30 to 35%. CBC is improving down to 21.8 hemoglobin is 8.6 platelets are 106 sodium is 145 hence we will change her IV fluid to D5 4 5, her bicarb is 19. BUN is 40 creatinine 0.71, overall the patient is improving, however unable to cut down sedation significantly as she becomes extremely agitated, did not tolerate Precedex when we tried Precedex couple of days ago. Intermittently the patient is requiring Ativan to keep her synchronous with the ventilator. Sending her chest x-ray appearance today, I am recommending diuretics and I am not recommending weaning at this point yet. I am cutting down her Solu-Medrol to 40 mg IV push every 12 hours keeping her on Lovenox 40 mg subcu daily for DVT prophylaxis. Doing Zosyn for her bilateral pneumonia on presentation. Progress note dated October 16, 2023. This is a 48-year-old female who was admitted to the hospital on October 08, with a diagnosis of pneumonia, heart failure, alcoholic liver disease, and ascites. The patient was intubated for respiratory failure on October 10, 2023. She remains on the mechanical ventilator. Settings include volume assist- control, rate 20, tidal volume 350, FiO2 40%, PEEP of 5. Blood gases show pO2 of 83, pCO2 of 34, and a pH of 7.49. This blood gas is consistent with a mild respiratory alkalosis. The patient is receiving propofol at 20 mcg/kg/min, and D5 with half-normal saline at 50 cc an hour. In addition, the patient is receiving vital high-protein at 35 cc an hour, which is goal. Labs include a white count of 24.8, hemoglobin 8.7, hematocrit 28.8, and a platelet count of 98,000. PT is 16.1 with an INR of 1.6. Sodium 144, potassium 3.9, chlorides 114, CO2 25, BUN 39, creatinine 0.71. Glucose is 122. Albumin is 2.6. AST is 89, ALT is 73. The patient's total bilirubin is 3.0. Microbiologic sampling is negative or pending. Chest x-ray shows some diffuse bilateral patchy airspace disease. Progress note dated October 17, 2023. This is a 48-year-old female who was admitted to the hospital on October 08, with a diagnosis of pneumonia, heart failure, alcoholic liver disease, and ascites. The patient was intubated for respiratory failure on October 10, 2023. She remains on the mechanical ventilator. Settings include volume assist- control, rate 20, tidal volume 350, FiO2 40%, and PEEP of 5. Blood gases show pO2 of 86, pCO2 34, pH is 7.51. This blood gas was consistent with a combined respiratory and metabolic alkalosis. The patient is on saline at KVO, and vital 1.2 at 40 cc an hour. Goal is 40 cc an hour. The patient will have a daily int erruption of sedation and a spontaneous breathing trial, with a pressure support of 8 and CPAP of 5. White count is 36.1, hemoglobin 8.8, hematocrit 29.1, and platelet count 99,000. Sodium 144, potassium 3.2, chlorides 109, CO2 27, anion gap 8, BUN 40, creatinine 0.71. Albumin is 2.6. Total bilirubin is elevated at 3. AST is 110, and ALT is 91. Microbiology is pending are negative. Chest x- ray shows diffuse interstitial and patchy opacities throughout both lungs, which may be slightly improved. Abdominal ultrasound shows some moderate abdominal ascites. Progress note dated October 18, 2023. 48-year-old female admitted to the hospital back on October 08, with a diagnosis of pneumonia, heart failure, alcoholic liver disease, and ascites. The patient remains on the mechanical ventilator. The patient was actually intubated on October 10. Current ventilator settings include volume assist-control, rate 20, tidal volume 350, FiO2 40%, PEEP of 5. Blood gases show pO2 of 81, pCO2 42, the pH is 7.52. The patient remains on propofol at 30 mcg/kg/min, and saline at KVO. She is getting vital 1.2 at 40 cc an hour, which is goal. Yesterday, she had a daily interruption of sedation with a spontaneous breathing trial, with a pressure support of 8 and CPAP of 5. She lasted about 2 hours. She did have a paracentesis abdominis yesterday, and 3.2 L was removed. White count is 34.1, hemoglobin 8.6, hematocrit 27.5, platelet count 78,000. Sodium 142, potassium 3.3, chlorides 106, CO2 33, BUN 34, creatinine 0.6. Calcium is 8. Culture data is thus far negative. Chest x-ray today, it is a bit improved, compared to the prior x-ray. Progress note dated October 19, 2023. 48-year-old female admitted to the hospital back on October 08 with a diagnosis of pneumonia, heart failure, alcoholic liver disease, and ascites. Yesterday, the patient was placed on spontaneous breathing trial, with pressure support and CPAP. She had excellent weaning parameters, and a blood gas, and she was successfully extubated. Currently, the patient is on room air. She is getting saline at KVO. Her Lasix dose was decreased from every 8 hours, to every 12 hours. White count is 30.8, hemoglobin 8.5, hematocrit 26.4, platelet count was 69,000. Sodium 144, potassium 3.8, chlorides 105, CO2 35, BUN 36, creatinine 0.6. Magnesium is 2.1. Calcium 8.1. Chest x-ray shows small lung volumes, and diffuse haziness. Progress note dated October 20, 2023. 48-year-old female, seen today in room 267. Currently, she is on room air. She is getting saline at KVO. The patient is doing very well status post recent extubation. Current laboratory data includes a white count 23.7, hemoglobin 9.4, hematocrit 28.1, and platelet count 71,000. Sodium 136, potassium 3.6, chloride 99, CO2 28, BUN is 32, with creatinine 0.47. Calcium is 8. Glucose is 237. Microbiology is currently pending are negative. The x-ray today shows some airspace disease, in the right middle lobe, and right lower lobe. The patient is seen today October 21, 2023 in follow-up on the regular medical floor. She was transferred out of the intensive care unit yesterday. She is doing very well. She is resting comfortably in bed. She is awake and alert in no acute distress. She is maintaining O2 saturations in the 90s on room air. No IV fluids. She is having some recurrent fullness in her abdomen, suspect recurrent ascites. Paracentesis fluid revealed no growth. Glucose 236. She remains on DuoNeb and elations, Pulmicort and performing scintillations, IV Solu-Medrol. The patient is seen today October 22, 2023 and follow-up on the regular medical floor. She is currently sitting up in bed. Awake and alert in no acute distress. She denies any worsening shortness of breath, cough or congestion. She is maintaining good O2 saturations in the 90s on 2 L/min per nasal cannula. She has been afebrile. Hemodynamically stable. Slightly tachycardic. Pleural fluid cultures revealed no growth. White count 34.3. Hemoglobin 8.9. Platelets 94,000. Sodium 130. Potassium 3.8. Bicarb 28. BUN 25. Creatinine 0.42. Glucose 218. Labs were from yesterday. She has been declining them again this morning. She did allow lab work to be drawn yesterday afternoon when her mother was here. She is still having some fullness in her abdomen. Objective - Vital Signs Vital signs: Vital Signs Temp 98.8 F 10/22/23 00:28 Pulse 123 H 10/22/23 00:28 Resp 16 10/22/23 00:28 BP 113/64 10/22/23 00:28 Pulse Ox 92 L 10/22/23 00:28 FiO2 50 10/18/23 14:10 Intake & Output 10/21/23 10/22/23 10/22/23 18:59 06:59 18:59 Intake Total 400 120 Balance 400 120 Intake: Oral 400 120 Other: # Voids 3 2 ABP, PAP, CO, CI - Last Documented Arterial Blood Pressure 111/50 - Exam GENERAL EXAM: Alert, pleasant 48-year-old female, on 2 L nasal cannula, resting in bed, in no apparent distress. HEAD: Normocephalic. EYES: Normal reaction of pupils, equal size. NOSE: Clear with pink turbinates. THROAT: No erythema or exudates. NECK: No masses, no JVD. CHEST: No chest wall deformity. LUNGS: Equal air entry with no crackles, wheeze, rhonchi or dullness. CVS: S1 and S2 normal with no audible murmur, regular rhythm. ABDOMEN: Edmar distended, positive fluid wave, normal bowel sounds, no guarding or rigidity. SPINE: No scoliosis or deformity SKIN: No rashes CENTRAL NERVOUS SYSTEM: No focal deficits, tone is normal in all 4 extremities. EXTREMITIES: There is 1+ peripheral edema. No clubbing, no cyanosis. Peripheral pulses are intact. - Labs CBC & Chem 7: 10/21/23 13:02 10/21/23 13:02 Labs: Abnormal Lab Results - Last 24 Hours (Table) 10/21/23 10/21/23 10/21/23 Range/Units 12:29 13:02 13:02 WBC 34.3 H (3.8-10.6) k/uL RBC 2.62 L (3.80-5.40) m/uL Hgb 8.9 L (11.4-16.0) gm/dL Hct 28.3 L (34.0-46.0) % MCV 107.9 H (80.0-100.0) fL RDW 21.6 H (11.5-15.5) % Plt Count 94 L (150-450) k/uL Neutrophils # (Manual) 33.61 H (1.3-7.7) k/uL Lymphocytes # (Manual) 0.34 L (1.0-4.8) k/uL Macrocytosis Marked A Sodium 130 L (137-145) mmol/L Chloride 96 L (98-107) mmol/L BUN 25 H (7-17) mg/dL Creatinine 0.42 L (0.52-1.04) mg/dL Glucose 218 H (74-99) mg/dL POC Glucose (mg/dL) 231 H (70-110) mg/dL Calcium 7.6 L (8.4-10.2) mg/dL Assessment and Plan Assessment: Acute hypoxic respiratory failure secondary to acute bilateral multilobar pneum onia as well as some fluid overload/CHF, status post intubation and mechanical ventilation on October 10, 2023. S/P successful extubation on October 18, 2023. Acute pulmonary edema, cardiogenic in origin, with an ejection fraction of 20% Acute exacerbation of chronic obstructive pulmonary disease secondary to above Ascites, status post paracentesis abdominis Chronic and ongoing tobacco dependence History of heavy alcohol abuse however quit 5 years ago History of cirrhosis secondary to above History of chronic pancreatitis secondary to above History of anxiety/depression Plan: The patient was seen and evaluated Labs and medications reviewed Currently stable and on 2 L nasal cannula Will request interventional radiology to perform a another paracentesis Plan is to go home to her parents at discharge This patient was seen independently by the pulmonary nurse practitioner addressing pulmonary issues I have personally seen and examined the patient, performed the documentation and the assessment and plan as written. Number of minutes spent on the visit: 24.
--- NOTE | 2023-10-22 08:52 | CA ---
Transthoracic Echo Report Name: Nicole Magallanes Age: 48 Gender: F : 1975 Exam Date: 10/21/2023 15:04 Exam Location: [facility] Ht (in): 62 Wt (lb): 171 Ordering Physician: Fahad Pulliam DO ([email or web address]) Attending/Referring Phys: Power Brake Operator Denise Hoffman RDCS Procedure CPT: Indications: re: LV EF Cardiac Hx: Technical Quality: Fair Contrast 1: Total Dose (mL): Contrast 2: Total Dose (mL): MEASUREMENTS (Male / Female) Normal Values 2D ECHO LV Diastolic Diameter PLAX 3.9 cm 4.2 - 5.9 / 3.9 - 5.3 cm LV Systolic Diameter PLAX 2.5 cm IVS Diastolic Thickness 1.2 cm 0.6 - 1.0 / 0.6 - 0.9 cm LVPW Diastolic Thickness 1.4 cm 0.6 - 1.0 / 0.6 - 0.9 cm LV Relative Wall Thickness 0.7 LV Diastolic Volume MOD BP 73.1 cm??? 67 - 155 / 56 - 104 cm??? LV Systolic Volume MOD BP 29.8 cm??? 22 - 58 / 19 - 49 cm??? LV Ejection Fraction MOD BP 59.3 % >= 55 % LV Cardiac Index MOD BP 2478.5 cm???/min???m??? LV Diastolic Volume MOD 4C 61.5 cm??? LV Systolic Volume MOD 4C 34.3 cm??? LV Ejection Fraction MOD 4C 44.3 % LV Cardiac Index MOD 4C 1558.3 cm???/min???m??? LV Diastolic Length 4C 6.8 cm LV Systolic Length 4C 6.3 cm LV Diastolic Volume MOD 2C 76.7 cm??? LV Systolic Volume MOD 2C 25.5 cm??? LV Ejection Fraction MOD 2C 66.8 % LV Cardiac Index MOD 2C 2928.5 cm???/min???m??? LV Diastolic Length 2C 7.7 cm LV Systolic Length 2C 6.1 cm FINDINGS Left Ventricle Limited study. Mildly increased left ventricular wall thickness. Left ventricular ejection fraction is estimated at 55-60%. Right Ventricle Right Atrium Left Atrium Mitral Valve Mild mitral regurgitation. Aortic Valve Tricuspid Valve Pulmonic Valve Pericardium No pericardial effusion. Aorta CONCLUSIONS Limited study Mildly increased left ventricular wall thickness Left ventricular ejection fraction 55-60% Previewed by: Dr. Fahad Pulliam DO (Electronically Signed) Final Date: 22 October 2023 08:51
[2023-10-22 12:22] LABS: Glucose,Whole Blood 268 mg/dL (70-110)
--- NOTE | 2023-10-22 13:02 | P.PN ---
Subjective Progress Note Date: 10/20/23 48-year-old female with a past medical history of severe alcohol abuse, quit 5 years ago, alcoholic liver cirrhosis and is on follow-up with her senior licensing manager at [facility], IBS, anxiety/depression and presents to ER with complaints of worsening shortness of breath. Patient states that she has been having shortness of breath for the past week and a half and did get worse in the last few days. Patient tried using her breathing treatments at home but did not get improvement. Patient was recently given antibiotics and prednisone by her physician. She has been increasingly weak and not feeling well. Patient presented to ER for evaluation. He was also complaining of cough without any sputum production. Also complaining of chest tightness and anxiety. Denies any leg swelling. No nausea or vomiting. Patient is also having increased abdominal girth. No prior history of paracentesis as per patient. Denies any fever at home. On admission patient was tachycardic and tachypneic and pulse ox 80% on room air. Currently requiring 8 L of oxygen via nasal cannula. CT of the abdomen pelvis showed patchy bilateral airspace consolidation consistent with multilobar pneumonia. Hepatic steatosis, abdominal ascites. Wall thickening of small bowel correlate for mild enteritis versus spontaneous bacterial peritonitis. CTA chest showed no PE. Patchy bilateral airspace consolidation consistent with multilobar pneumonia. Chest x-ray showed similar multifocal airspace opacities. Laboratory data showed WBC 16.5 hemoglobin 10.0 MCV 102.4 and platelets 188 and neutrophils 14.4 INR 1.7, D-dimer 2.8 Sodium 132 potassium 3.7 chloride 95 bicarbonate 24 BUN 18 and creatinine 0.84 and blood sugar 270 and lactic acid 7.0 on admission, calcium 8.1, total bilirubin level is 4.6 AST 113 ALT 68 and alk phos 208 Troponin 0.012 and proBNP 2040 and albumin 3.0 Influenza A, B, RSV and COVID-19 PCR not detected. Objective - Vital Signs Vital signs: Vital Signs Temp 98.3 F 10/20/23 04:00 Pulse 82 10/20/23 08:30 Resp 18 10/20/23 07:00 BP 92/64 10/20/23 07:00 Pulse Ox 94 L 10/20/23 07:00 FiO2 50 10/18/23 14:10 Intake & Output 10/19/23 10/20/23 10/20/23 18:59 06:59 18:59 Intake Total 1014.429 802 Output Total 335 900 Balance 679.429 -98 Weight 77.7 kg Intake: IV 286 302 .9 pressure bag 66 42 0.9 Sodium Chloride 220 260 Intake, IV Titration 128.429 Amount Norepinephrine 4 mg In 128.429 Sodium Chloride 0.9% 250 ml @ 0.03 MCG/KG/MIN 6. 221 mls/hr IV .Q24H [facility] Rx#:[id number] Oral 600 500 Output: Urine 335 800 Stool 100 Other: Voiding Method Indwelling Catheter Indwelling Catheter ABP, PAP, CO, CI - Last Documented Arterial Blood Pressure 111/50 - Exam GENERAL: The patient is alert and oriented x3, not in any acute distress. Well developed, well nourished. HEENT: Pupils are round and equally reacting to light. EOMI. No scleral icterus. No conjunctival pallor. Normocephalic, atraumatic. No pharyngeal erythema. No thyromegaly. CARDIOVASCULAR: S1 and S2 present. No murmurs, rubs, or gallops. PULMONARY: Chest is clear to auscultation, no wheezing , no crackles. -ABDOMEN: Soft, nontender, mildly distended, normoactive bowel sounds. No palpable organomegaly. MUSCULOSKELETAL: No joint swelling or deformity. EXTREMITIES: No cyanosis, clubbing, or pedal edema. NEUROLOGICAL: Gross neurological examination did not reveal any focal deficits. SKIN: No rashes. no petechiae. - Labs CBC & Chem 7: 10/21/23 13:02 10/21/23 13:02 Labs: Abnormal Lab Results - Last 24 Hours (Table) 10/19/23 10/19/23 10/19/23 Range/Units 12:05 16:33 20:19 WBC (3.8-10.6) k/uL RBC (3.80-5.40) m/uL Hgb (11.4-16.0) gm/dL Hct (34.0-46.0) % MCV (80.0-100.0) fL MCH (25.0-35.0) pg RDW (11.5-15.5) % Plt Count (150-450) k/uL Neutrophils # (1.3-7.7) k/uL Monocytes # (0-1.0) k/uL Macrocytosis Sodium (137-145) mmol/L BUN (7-17) mg/dL Creatinine (0.52-1.04) mg/dL Glucose (74-99) mg/dL POC Glucose (mg/dL) 131 H 256 H 227 H (70-110) mg/dL Calcium (8.4-10.2) mg/dL 10/19/23 10/19/23 10/20/23 Range/Units 23:26 23:58 03:58 WBC (3.8-10.6) k/uL RBC (3.80-5.40) m/uL Hgb (11.4-16.0) gm/dL Hct (34.0-46.0) % MCV (80.0-100.0) fL MCH (25.0-35.0) pg RDW (11.5-15.5) % Plt Count (150-450) k/uL Neutrophils # (1.3-7.7) k/uL Monocytes # (0-1.0) k/uL Macrocytosis Sodium (137-145) mmol/L BUN (7-17) mg/dL Creatinine (0.52-1.04) mg/dL Glucose (74-99) mg/dL POC Glucose (mg/dL) 128 H 126 H 158 H (70-110) mg/dL Calcium (8.4-10.2) mg/dL 10/20/23 10/20/23 10/20/23 Range/Units 07:00 07:00 08:12 WBC 23.7 H (3.8-10.6) k/uL RBC 2.60 L (3.80-5.40) m/uL Hgb 9.4 L (11.4-16.0) gm/dL Hct 28.1 L (34.0-46.0) % MCV 108.2 H (80.0-100.0) fL MCH 36.3 H (25.0-35.0) pg RDW 21.4 H (11.5-15.5) % Plt Count 71 L (150-450) k/uL Neutrophils # 19.9 H (1.3-7.7) k/uL Monocytes # 1.8 H (0-1.0) k/uL Macrocytosis Marked A Sodium 136 L (137-145) mmol/L BUN 32 H (7-17) mg/dL Creatinine 0.47 L (0.52-1.04) mg/dL Glucose 195 H (74-99) mg/dL POC Glucose (mg/dL) 237 H (70-110) mg/dL Calcium 8.0 L (8.4-10.2) mg/dL Assessment and Plan Assessment: Acute hypoxic respiratory failure secondary to multifocal pneumonia and pulmonary edema. Patient is 8 L high flow oxygen--> intubated on mechanical ventilator. Pulmonary edema likely due to cardiogenic with low ejection fraction 30 to 35%. Acute HFrEF with ejection fraction 30 -45% Multifocal pneumonia Sepsis/septic shock secondary to above. off pressor support COPD with acute exacerbation Lactic acidosis 7.0 on admission Alcoholic liver cirrhosis Ascites Patient is status post paracentesis on 10/13/2023. Hepatic steatosis and hyperbilirubinemia and elevated liver enzymes History of severe alcohol abuse. Quit 5 years ago History of chronic pancreatitis Anxiety/depression Plan: Patient is status post extubated and transferred to the general medical floor patient will be transferred out of the ICU to the general medical floor No antibiotic on IV Solu-Medrol and DuoNebs as needed. c/w Lasix 40 mg IV Cardiology and critical care team is on board.Discussed with her mother at bedside in detail. DVT prophylaxis with Lovenox subcu GI prophylaxis Prognosis is guarded.
[2023-10-22 14:59] LABS: Anisocytosis Moderate; HCT 23.7 % (34.0-46.0); HGB 7.6 gm/dL (11.4-16.0); Hypochromasia Marked; MCH 34.8 pg (25.0-35.0); MCV 108.8 fL (80.0-100.0); Macrocytosis Marked; Mean Platelet Volume 11.1; Platelet Count 118 k/uL (150-450); RBC 2.18 m/uL (3.80-5.40); RDW 22.6 % (11.5-15.5); WBC 31.4 k/uL (3.8-10.6)
[2023-10-22 15:09] LABS: African American GFR (CKD) >90 (>60 ml/min/1.73 sqM); Anion Gap 5 mmol/L; Blood Urea Nitrogen 28 mg/dL (7-17); Calcium 7.4 mg/dL (8.4-10.2); Carbon Dioxide 28 mmol/L (22-30); Chloride 95 mmol/L (98-107); Glucose 246 mg/dL (74-99); Non-African American GFR(CKD) >90 (>60 ml/min/1.73 sqM); Potassium 2.8 mmol/L (3.5-5.1); Sodium 128 mmol/L (137-145)
[2023-10-22 15:18] LABS: Anisocytosis (M) Present; Eosinophils # (M) 0.31 k/uL (0-0.7); Lymphocytes # (M) 0.31 k/uL (1.0-4.8); Monocytes # (M) 1.57 k/uL (0-1.0); Neutrophils % (M) 93 %; Nucleated Red Blood Cells 0 /100 WBC (0-0); Polychromasia Present; Total Cells Counted 100
[2023-10-22 15:19] LABS: Hypochromasia (M) Present
[2023-10-22] MEDS: IPRATROPIUM-ALBUTEROL 3 ML NEB INHALATION PRN (15:55)
[2023-10-22 17:52] LABS: Glucose,Whole Blood 232 mg/dL (70-110)
[2023-10-22] MEDS: INSULIN ASPART (NovoLOG) 100 UNIT/ML VIAL SQ SCH (18:03)
--- NOTE | 2023-10-22 18:21 | P.PN ---
Subjective Progress Note Date: 10/21/23 48-year-old female with a past medical history of severe alcohol abuse, quit 5 years ago, alcoholic liver cirrhosis and is on follow-up with her environment coordinator at [facility], IBS, anxiety/depression and presents to ER with complaints of worsening shortness of breath. Patient states that she has been having shortness of breath for the past week and a half and did get worse in the last few days. Patient tried using her breathing treatments at home but did not get improvement. Patient was recently given antibiotics and prednisone by her physician. She has been increasingly weak and not feeling well. Patient presented to ER for evaluation. He was also complaining of cough without any sputum production. Also complaining of chest tightness and anxiety. Denies any leg swelling. No nausea or vomiting. Patient is also having increased abdominal girth. No prior history of paracentesis as per patient. Denies any fever at home. On admission patient was tachycardic and tachypneic and pulse ox 80% on room air. Currently requiring 8 L of oxygen via nasal cannula. CT of the abdomen pelvis showed patchy bilateral airspace consolidation consistent with multilobar pneumonia. Hepatic steatosis, abdominal ascites. Wall thickening of small bowel correlate for mild enteritis versus spontaneous bacterial peritonitis. CTA chest showed no PE. Patchy bilateral airspace consolidation consistent with multilobar pneumonia. Chest x-ray showed similar multifocal airspace opacities. Laboratory data showed WBC 16.5 hemoglobin 10.0 MCV 102.4 and platelets 188 and neutrophils 14.4 INR 1.7, D-dimer 2.8 Sodium 132 potassium 3.7 chloride 95 bicarbonate 24 BUN 18 and creatinine 0.84 and blood sugar 270 and lactic acid 7.0 on admission, calcium 8.1, total bilirubin level is 4.6 AST 113 ALT 68 and alk phos 208 Troponin 0.012 and proBNP 2040 and albumin 3.0 Influenza A, B, RSV and COVID-19 PCR not detected. 10/21/2023 in follow-up on the regular medical floor. She was transferred out of the intensive care unit yesterday. She is doing very well. She is resting com fortably in bed. She is awake and alert in no acute distress. She is maintaining O2 saturations in the 90s on room air. No IV fluids. She is having some recurrent fullness in her abdomen, suspect recurrent ascites. --Paracentesis fluid revealed no growth. Glucose 236. --She remains on DuoNeb and elations, Pulmicort and performing scintillations, IV Solu-Medrol. Currently stable and on room air Plan is to go home to her parents at discharge Will require close follow-up regarding cirrhosis/ascites Objective - Vital Signs Vital signs: Vital Signs Temp 98.3 F 10/21/23 07:50 Pulse 100 10/21/23 12:21 Resp 16 10/21/23 08:00 BP 104/59 10/21/23 07:50 Pulse Ox 84 L 10/21/23 08:42 FiO2 50 10/18/23 14:10 Intake & Output 10/20/23 10/21/23 10/21/23 18:59 06:59 18:59 Intake Total 592 360 Output Total 110 Balance 482 360 Weight 77.7 kg 77.8 kg Intake: IV 92 .9 pressure bag 12 0.9 Sodium Chloride 80 Oral 500 360 Output: Urine 110 Other: Voiding Method Indwelling Catheter # Voids 1 ABP, PAP, CO, CI - Last Documented Arterial Blood Pressure 111/50 - Exam GENERAL: The patient is alert and oriented x3, not in any acute distress. Well developed, well nourished. HEENT: Pupils are round and equally reacting to light. EOMI. No scleral icterus. No conjunctival pallor. Normocephalic, atraumatic. No pharyngeal erythema. No thyromegaly. CARDIOVASCULAR: S1 and S2 present. No murmurs, rubs, or gallops. PULMONARY: Chest is clear to auscultation, no wheezing , no crackles. -ABDOMEN: Soft, nontender, mildly distended, normoactive bowel sounds. No palpable organomegaly. MUSCULOSKELETAL: No joint swelling or deformity. EXTREMITIES: No cyanosis, clubbing, or pedal edema. NEUROLOGICAL: Gross neurological examination did not reveal any focal deficits. SKIN: No rashes. no petechiae. - Labs CBC & Chem 7: 10/22/23 14:38 10/22/23 14:38 Labs: Abnormal Lab Results - Last 24 Hours (Table) 10/20/23 10/21/23 10/21/23 Range/Units 16:10 07:51 12:29 WBC (3.8-10.6) k/uL RBC (3.80-5.40) m/uL Hgb (11.4-16.0) gm/dL Hct (34.0-46.0) % MCV (80.0-100.0) fL RDW (11.5-15.5) % Plt Count (150-450) k/uL Macrocytosis Sodium (137-145) mmol/L Chloride (98-107) mmol/L BUN (7-17) mg/dL Creatinine (0.52-1.04) mg/dL Glucose (74-99) mg/dL POC Glucose (mg/dL) 231 H 236 H 231 H (70-110) mg/dL Calcium (8.4-10.2) mg/dL 10/21/23 10/21/23 Range/Units 13:02 13:02 WBC 34.3 H (3.8-10.6) k/uL RBC 2.62 L (3.80-5.40) m/uL Hgb 8.9 L (11.4-16.0) gm/dL Hct 28.3 L (34.0-46.0) % MCV 107.9 H (80.0-100.0) fL RDW 21.6 H (11.5-15.5) % Plt Count 94 L (150-450) k/uL Macrocytosis Marked A Sodium 130 L (137-145) mmol/L Chloride 96 L (98-107) mmol/L BUN 25 H (7-17) mg/dL Creatinine 0.42 L (0.52-1.04) mg/dL Glucose 218 H (74-99) mg/dL POC Glucose (mg/dL) (70-110) mg/dL Calcium 7.6 L (8.4-10.2) mg/dL Assessment and Plan Assessment: Acute hypoxic respiratory failure secondary to multifocal pneumonia and pulmonary edema. Patient is 8 L high flow oxygen--> intubated on mechanical ventilator. Pulmonary edema likely due to cardiogenic with low ejection fraction 30 to 35%. Acute HFrEF with ejection fraction 30 -45% Multifocal pneumonia Sepsis/septic shock secondary to above. off pressor support COPD with acute exacerbation Lactic acidosis 7.0 on admission Alcoholic liver cirrhosis Ascites Patient is status post paracentesis on 10/13/2023. Hepatic steatosis and hyperbilirubinemia and elevated liver enzymes History of severe alcohol abuse. Quit 5 years ago History of chronic pancreatitis Anxiety/depression Plan: Patient is status post extubated and transferred to the general medical floor patient will be transferred out of the ICU to the general medical floor No antibiotic on IV Solu-Medrol and DuoNebs as needed. c/w Lasix 40 mg IV Cardiology and critical care team is on board.Discussed with her mother at bedside in detail. DVT prophylaxis with Lovenox subcu GI prophylaxis Prognosis is guarded.
[2023-10-22] MEDS ORDERED: Potassium Replacement Protocol 1 EACH MISC MISCELLANE PRN (18:32)
--- NOTE | 2023-10-22 18:32 | P.PN ---
Subjective Progress Note Date: 10/22/23 48-year-old female with a past medical history of severe alcohol abuse, quit 5 years ago, alcoholic liver cirrhosis and is on follow-up with her electric meter tester at [facility], IBS, anxiety/depression and presents to ER with complaints of worsening shortness of breath. Patient states that she has been having shortness of breath for the past week and a half and did get worse in the last few days. Patient tried using her breathing treatments at home but did not get improvement. Patient was recently given antibiotics and prednisone by her physician. She has been increasingly weak and not feeling well. Patient presented to ER for evaluation. He was also complaining of cough without any sputum production. Also complaining of chest tightness and anxiety. Denies any leg swelling. No nausea or vomiting. Patient is also having increased abdominal girth. No prior history of paracentesis as per patient. Denies any fever at home. On admission patient was tachycardic and tachypneic and pulse ox 80% on room air. Currently requiring 8 L of oxygen via nasal cannula. CT of the abdomen pelvis showed patchy bilateral airspace consolidation consistent with multilobar pneumonia. Hepatic steatosis, abdominal ascites. Wall thickening of small bowel correlate for mild enteritis versus spontaneous bacterial peritonitis. CTA chest showed no PE. Patchy bilateral airspace consolidation consistent with multilobar pneumonia. Chest x-ray showed similar multifocal airspace opacities. Laboratory data showed WBC 16.5 hemoglobin 10.0 MCV 102.4 and platelets 188 and neutrophils 14.4 INR 1.7, D-dimer 2.8 Sodium 132 potassium 3.7 chloride 95 bicarbonate 24 BUN 18 and creatinine 0.84 and blood sugar 270 and lactic acid 7.0 on admission, calcium 8.1, total bilirubin level is 4.6 AST 113 ALT 68 and alk phos 208 Troponin 0.012 and proBNP 2040 and albumin 3.0 Influenza A, B, RSV and COVID-19 PCR not detected. 10/21/2023 in follow-up on the regular medical floor. She was transferred out of the intensive care unit yesterday. She is doing very well. She is resting com fortably in bed. She is awake and alert in no acute distress. She is maintaining O2 saturations in the 90s on room air. No IV fluids. She is having some recurrent fullness in her abdomen, suspect recurrent ascites. --Paracentesis fluid revealed no growth. Glucose 236. --She remains on DuoNeb and elations, Pulmicort and performing scintillations, IV Solu-Medrol. Currently stable and on room air Plan is to go home to her parents at discharge Will require close follow-up regarding cirrhosis/ascites 10/22/2023 Patient is seen and evaluated follow-up on the regular medical floor. She is currently sitting up in bed. Awake and alert in no acute distress. She denies any worsening shortness of breath, cough or congestion. She is maintaining good O2 saturations in the 90s on 2 L/min per nasal cannula. --She has been afebrile. Hemodynamically stable. Slightly tachycardic. Pleural fluid cultures revealed no growth. --White count 34.3. Hemoglobin 8.9. Platelets 94,000. Sodium 130. Potassium 3.8. Bicarb 28. BUN 25. Creatinine 0.42. Glucose 218. Labs were from yesterday. She has been declining them again this morning. She did allow lab work to be drawn yesterday afternoon when her mother was here. She is still having some fullness in her abdomen. --interventional radiology to perform a another paracentesis Plan is to go home to her parents at discharge; PT recommendation of skilled rehab was discussed with patient and family; patient is reluctant at this time and would want to be discharged home with parents. Objective - Vital Signs Vital signs: Vital Signs Temp 98.8 F 10/22/23 00:28 Pulse 123 H 10/22/23 00:28 Resp 16 10/22/23 00:28 BP 113/64 10/22/23 00:28 Pulse Ox 92 L 10/22/23 00:28 FiO2 50 10/18/23 14:10 Intake & Output 10/21/23 10/22/23 10/22/23 18:59 06:59 18:59 Intake Total 400 120 Balance 400 120 Intake: Oral 400 120 Other: # Voids 3 2 ABP, PAP, CO, CI - Last Documented Arterial Blood Pressure 111/50 - Exam GENERAL: The patient is alert and oriented x3, not in any acute distress. Well developed, well nourished. HEENT: Pupils are round and equally reacting to light. EOMI. No scleral icterus. No conjunctival pallor. Normocephalic, atraumatic. No pharyngeal erythema. No thyromegaly. CARDIOVASCULAR: S1 and S2 present. No murmurs, rubs, or gallops. PULMONARY: Chest is clear to auscultation, no wheezing , no crackles. -ABDOMEN: Soft, nontender, mildly distended, normoactive bowel sounds. No palpable organomegaly. MUSCULOSKELETAL: No joint swelling or deformity. EXTREMITIES: No cyanosis, clubbing, or pedal edema. NEUROLOGICAL: Gross neurological examination did not reveal any focal deficits. SKIN: No rashes. no petechiae. - Labs CBC & Chem 7: 10/22/23 14:38 10/22/23 14:38 Labs: Abnormal Lab Results - Last 24 Hours (Table) 10/21/23 10/21/23 10/22/23 Range/Units 13:02 13:02 12:20 WBC 34.3 H (3.8-10.6) k/uL RBC 2.62 L (3.80-5.40) m/uL Hgb 8.9 L (11.4-16.0) gm/dL Hct 28.3 L (34.0-46.0) % MCV 107.9 H (80.0-100.0) fL RDW 21.6 H (11.5-15.5) % Plt Count 94 L (150-450) k/uL Neutrophils # (Manual) 33.61 H (1.3-7.7) k/uL Lymphocytes # (Manual) 0.34 L (1.0-4.8) k/uL Macrocytosis Marked A Sodium 130 L (137-145) mmol/L Chloride 96 L (98-107) mmol/L BUN 25 H (7-17) mg/dL Creatinine 0.42 L (0.52-1.04) mg/dL Glucose 218 H (74-99) mg/dL POC Glucose (mg/dL) 268 H (70-110) mg/dL Calcium 7.6 L (8.4-10.2) mg/dL Assessment and Plan Assessment: Acute hypoxic respiratory failure secondary to multifocal pneumonia and pu lmonary edema. Patient is 8 L high flow oxygen--> intubated on mechanical ventilator. Pulmonary edema likely due to cardiogenic with low ejection fraction 30 to 35%. Acute HFrEF with ejection fraction 30 -45% Multifocal pneumonia Sepsis/septic shock secondary to above. off pressor support COPD with acute exacerbation Lactic acidosis 7.0 on admission Alcoholic liver cirrhosis Ascites Patient is status post paracentesis on 10/13/2023. Hepatic steatosis and hyperbilirubinemia and elevated liver enzymes History of severe alcohol abuse. Quit 5 years ago History of chronic pancreatitis Anxiety/depression Plan: Patient is status post extubated and transferred to the general medical floor patient will be transferred out of the ICU to the general medical floor No antibiotic on IV Solu-Medrol and DuoNebs as needed. c/w Lasix 40 mg IV Cardiology and critical care team is on board.Discussed with her mother at bedside in detail. DVT prophylaxis with Lovenox subcu GI prophylaxis Prognosis is guarded.
[2023-10-22] MEDS: POTASSIUM CHLORIDE ER 20 MEQ TAB.ER PO SCH (18:47)
[2023-10-22 20:13] LABS: Glucose,Whole Blood 117 mg/dL (70-110)
[2023-10-22] MEDS: ALPRAZolam 0.5 MG TAB PO SCH (20:54)
[2023-10-23 03:11] LABS: Anisocytosis Moderate; Basophils # (A) 0.1 k/uL (0-0.2); Basophils % (A) 0 %; Eosinophils % (A) 0 %; HCT 23.2 % (34.0-46.0); HGB 7.6 gm/dL (11.4-16.0); Hypochromasia Moderate; Lymphocytes # (A) 1.3 k/uL (1.0-4.8); Lymphocytes % (A) 4 %; MCH 35.5 pg (25.0-35.0); MCHC 32.9 g/dL (31.0-37.0); MCV 107.9 fL (80.0-100.0); Macrocytosis Marked; Mean Platelet Volume 10.8; Monocytes # (A) 0.7 k/uL (0-1.0); Monocytes % (A) 2 %; Neutrophils # (A) 27.1 k/uL (1.3-7.7); Neutrophils % (A) 93 %; Platelet Count 104 k/uL (150-450); RBC 2.15 m/uL (3.80-5.40); RDW 22.8 % (11.5-15.5); WBC 29.3 k/uL (3.8-10.6)
[2023-10-23 03:37] LABS: African American GFR (CKD) >90 (>60 ml/min/1.73 sqM); Anion Gap 6 mmol/L; Blood Urea Nitrogen 30 mg/dL (7-17); Calcium 7.5 mg/dL (8.4-10.2); Carbon Dioxide 27 mmol/L (22-30); Chloride 94 mmol/L (98-107); Glucose 159 mg/dL (74-99); Non-African American GFR(CKD) >90 (>60 ml/min/1.73 sqM); Potassium 3.8 mmol/L (3.5-5.1); Sodium 127 mmol/L (137-145)
[2023-10-23] MEDS: POTASSIUM CHLORIDE ER 20 MEQ TAB.ER PO ONE (06:21)
[2023-10-23 08:10] LABS: Glucose,Whole Blood 244 mg/dL (70-110)
--- NOTE | 2023-10-23 09:11 | US ---
EXAMINATION TYPE: US abdomen limited DATE OF EXAM: 10/23/2023 COMPARISON: US 2023 CLINICAL INDICATION: Female, 48 years old with history of Assess for ascites; Assess for ascites. All four quadrants of the abdomen were scanned. Ascites seen in all four quadrants. IMPRESSION: Moderate ascites
[2023-10-23 10:25] LABS: INR 1.6 (<1.2); Prothrombin Time 16.8 sec (10.0-12.5)
[2023-10-23 12:09] LABS: Glucose,Whole Blood 163 mg/dL (70-110)
--- NOTE | 2023-10-23 13:06 | US ---
Ultrasound-guided paracentesis. DATE OF EXAM: 10/23/2023 CLINICAL HISTORY: Ascites The procedure was discussed with the patient. The risks, complications, benefits, and alternatives we re discussed and any questions were answered. Informed consent was obtained. The patient was placed s upine on the ultrasound table and prepped and draped in the usual sterile fashion. All elements of maximal barrier technique were utilized. Under ultrasound guidance, access into the right lower quadrant was obtained, via the paracentesis catheter system and direct ultrasound guidanc e. Approximately 4.2 liters of straw-colored fluid was removed. The patient was stable throughout the pr ocedure and remained stable upon discharge from Department of Radiology. IMPRESSION: Successful paracentesis under ultrasound guidance.
--- NOTE | 2023-10-23 15:51 | P.PN ---
Subjective Progress Note Date: 10/23/23 On 10/23/2023, the patient is being seen for a follow-up. The patient is known to have liver cirrhosis and chronic pancreatitis. The patient is a recovering alcoholic and she quit drinking approximately 5 years ago. The patient also has history of smoking, chronic anxiety and depression and acid reflux. The patient presented to to the hospital because of multilobar pneumonia and hypoxic respiratory failure. The patient had bilateral patchy airspace disease. The patient was treated in the intensive care unit. During the course of her ICU stay, the patient developed also worsening pulmonary edema in addition to underlying pneumonia. The patient had to be intubated and placed on mechanical ventilator. Note that she also has CHF with LV dysfunction and ejection fraction of 30%. No significant valvular abnormalities. She was treated with IV Zosyn and she was also placed on diuretics. The viral panel was negative. Her proBNP level was above 2000. The procalcitonin level was at 0.6. The patient remains on a mechanical ventilator and she was gradually weaned off the pressors as the patient required pressors to treat her sepsis. She was ultimately extubated on 09/18/2023 and currently she is on the medical floor maintained on 2 L of oxygen by nasal cannula. The most recent chest x-ray was done on 10/20/2023 that showed right middle lobe and left lower lobe airspace disease with hazy appearance of the lungs compatible with pneumonia. The patient also has abdominal distention and ascites. Ultrasound the abdomen that was done showed moderate degree of ascites and the patient underwent a paracentesis today with a total of 4.2 L of fluid removed. The patient remains on DuoNeb nebulized treatments [id number]. The patient is also on Lasix 40 mg IV every 12 hours. The patient completed her antibiotic course. Sputum culture from 10/12/2022 was positive for Marleni. The patient is white cell count of 29 with a hemoglobin 7.6 and a platelet count of 98. Sodium is at 127, BUN is at 30 creatinine 0.5 and a potassium level of 3.8. Objective - Vital Signs Vital signs: Vital Signs Temp 98.5 F 10/23/23 08:08 Pulse 108 H 10/23/23 11:55 Resp 16 10/23/23 11:09 BP 104/60 10/23/23 11:09 Pulse Ox 95 02/05/24 11:09 FiO2 50 10/18/23 14:10 Intake & Output 10/22/23 10/23/23 10/23/23 18:59 06:59 18:59 Intake Total 400 Output Total 300 Balance 400 -300 Weight 42.5 kg Intake: Oral 400 Output: Urine 300 Other: Voiding Method External Catheter # Voids 0 # Bowel Movements 0 ABP, PAP, CO, CI - Last Documented Arterial Blood Pressure 111/50 - Exam GENERAL EXAM: Alert, pleasant 48-year-old female, on 2 L nasal cannula, resting in bed, in no apparent distress. The patient remains jaundiced HEAD: Normocephalic. EYES: Normal reaction of pupils, equal size. NOSE: Clear with pink turbinates. THROAT: No erythema or exudates. NECK: No masses, no JVD. CHEST: No chest wall deformity. LUNGS: Equal air entry with no crackles, wheeze, rhonchi or dullness. CVS: S1 and S2 normal with no audible murmur, regular rhythm. ABDOMEN: Edmar distended, positive fluid wave, normal bowel sounds, no guarding or rigidity. SPINE: No scoliosis or deformity SKIN: No rashes CENTRAL NERVOUS SYSTEM: No focal deficits, tone is normal in all 4 extremities. EXTREMITIES: There is 1+ peripheral edema. No clubbing, no cyanosis. Peripheral pulses are intact. - Labs CBC & Chem 7: 10/23/23 03:02 10/23/23 03:02 Labs: Abnormal Lab Results - Last 24 Hours (Table) 10/22/23 10/22/23 10/22/23 Range/Units 12:20 14:38 14:38 WBC 31.4 H (3.8-10.6) k/uL RBC 2.18 L (3.80-5.40) m/uL Hgb 7.6 L (11.4-16.0) gm/dL Hct 23.7 L (34.0-46.0) % MCV 108.8 H (80.0-100.0) fL MCH (25.0-35.0) pg RDW 22.6 H (11.5-15.5) % Plt Count 118 L (150-450) k/uL Neutrophils # (1.3-7.7) k/uL Neutrophils # (Manual) 29.20 H (1.3-7.7) k/uL Lymphocytes # (Manual) 0.31 L (1.0-4.8) k/uL Monocytes # (Manual) 1.57 H (0-1.0) k/uL Macrocytosis Marked A PT (10.0-12.5) sec INR (<1.2) Sodium 128 L (137-145) mmol/L Potassium 2.8 L (3.5-5.1) mmol/L Chloride 95 L (98-107) mmol/L BUN 28 H (7-17) mg/dL Creatinine 0.49 L (0.52-1.04) mg/dL Glucose 246 H (74-99) mg/dL POC Glucose (mg/dL) 268 H (70-110) mg/dL Calcium 7.4 L (8.4-10.2) mg/dL 10/22/23 10/22/23 10/23/23 Range/Units 17:50 20:10 03:02 WBC 29.3 H (3.8-10.6) k/uL RBC 2.15 L (3.80-5.40) m/uL Hgb 7.6 L (11.4-16.0) gm/dL Hct 23.2 L (34.0-46.0) % MCV 107.9 H (80.0-100.0) fL MCH 35.5 H (25.0-35.0) pg RDW 22.8 H (11.5-15.5) % Plt Count 104 L (150-450) k/uL Neutrophils # 27.1 H (1.3-7.7) k/uL Neutrophils # (Manual) (1.3-7.7) k/uL Lymphocytes # (Manual) (1.0-4.8) k/uL Monocytes # (Manual) (0-1.0) k/uL Macrocytosis Marked A PT (10.0-12.5) sec INR (<1.2) Sodium (137-145) mmol/L Potassium (3.5-5.1) mmol/L Chloride (98-107) mmol/L BUN (7-17) mg/dL Creatinine (0.52-1.04) mg/dL Glucose (74-99) mg/dL POC Glucose (mg/dL) 232 H 117 H (70-110) mg/dL Calcium (8.4-10.2) mg/dL 10/23/23 10/23/23 10/23/23 Range/Units 03:02 08:09 09:39 WBC (3.8-10.6) k/uL RBC (3.80-5.40) m/uL Hgb (11.4-16.0) gm/dL Hct (34.0-46.0) % MCV (80.0-100.0) fL MCH (25.0-35.0) pg RDW (11.5-15.5) % Plt Count (150-450) k/uL Neutrophils # (1.3-7.7) k/uL Neutrophils # (Manual) (1.3-7.7) k/uL Lymphocytes # (Manual) (1.0-4.8) k/uL Monocytes # (Manual) (0-1.0) k/uL Macrocytosis PT 16.8 H (10.0-12.5) sec INR 1.6 H (<1.2) Sodium 127 L (137-145) mmol/L Potassium (3.5-5.1) mmol/L Chloride 94 L (98-107) mmol/L BUN 30 H (7-17) mg/dL Creatinine (0.52-1.04) mg/dL Glucose 159 H (74-99) mg/dL POC Glucose (mg/dL) 244 H (70-110) mg/dL Calcium 7.5 L (8.4-10.2) mg/dL Assessment and Plan Plan: Acute hypoxic respiratory failure secondary to acute bilateral multilobar pneumonia as well as some fluid overload/CHF, status post intubation and mechanical ventilation on October 10, 2023. S/P successful extubation on October 18, 2023. The patient remains extubated on 2 L of oxygen by nasal cannula. Repeat chest x-ray will be obtained for tomorrow. The patient has completed the course of antibiotics. Sputum was positive for Marleni albicans and the patient is currently on diuretics as the most recent chest x-ray was more consistent with CHF Acute pulmonary edema, cardiogenic in origin, with an ejection fraction of 20% Acute exacerbation of chronic obstructive pulmonary disease secondary to above Ascites, status post paracentesis abdominis, underwent paracentesis on 10/23/2023 with a total of 4.2 L of ascitic fluid being drained. Noted the patient during the course of her illness. Also another paracentesis done 10/17/2023. Chronic and ongoing tobacco dependence History of heavy alcohol abuse however quit 5 years ago History of cirrhosis secondary to above History of chronic pancreatitis secondary to above History of anxiety/depression Jaundice to the bilirubin level of 3.0 Profound motor weakness, generalized secondary to above-mentioned comorbidities Chronic hyponatremia related to liver cirrhosis Diabetes mellitus secondary to above maintained on Levemir insulin 12 units daily along with sliding scale coverage Plan: Repeat chest x-ray in the morning Currently stable and on 2 L nasal cannula Performed another paracentesis with a total of 4.2 L of ascitic fluid being drained Continue Lasix 40 mg every 12 hours Monitor hematologic profile including sodium Plan is to go home to her parents at discharge
[2023-10-23 20:58] LABS: Glucose,Whole Blood 219 mg/dL (70-110)
--- NOTE | 2023-10-23 23:36 | P.PN ---
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 Patient states that she has been having shortness of breath for the past week and a half and did get worse in the last few days. Patient tried using her breathing treatments at home but did not get improvement. Patient was recently given antibiotics and prednisone by her physician. She has been increasingly weak and not feeling well. Patient presented to ER for evaluation. He was also complaining of cough without any sputum production. Also complaining of chest tightness and anxiety. Denies any leg swelling. No nausea or vomiting. Patient is also having increased abdominal girth. No prior history of paracentesis as per patient. Denies any fever at home. On admission patient was tachycardic and tachypneic and pulse ox 80% on room air. Currently requiring 8 L of oxygen via nasal cannula. CT of the abdomen pelvis showed patchy bilateral airspace consolidation consistent with multilobar pneumonia. Hepatic steatosis, abdominal ascites. Wa ll thickening of small bowel correlate for mild enteritis versus spontaneous bacterial peritonitis. CTA chest showed no PE. Patchy bilateral airspace consolidation consistent with multilobar pneumonia. Chest x-ray showed similar multifocal airspace opacities. Laboratory data showed WBC 16.5 hemoglobin 10.0 MCV 102.4 and platelets 188 and neutrophils 14.4 INR 1.7, D-dimer 2.8 Sodium 132 potassium 3.7 chloride 95 bicarbonate 24 BUN 18 and creatinine 0.84 and blood sugar 270 and lactic acid 7.0 on admission, calcium 8.1, total bilirubin level is 4.6 AST 113 ALT 68 and alk phos 208 Troponin 0.012 and proBNP 2040 and albumin 3.0 Influenza A, B, RSV and COVID-19 PCR not detected. 10/10/2023 Patient was transferred to MICU. Overnight patient's respiratory status worsened due to multifocal pneumonia and also patient is receiving fluids at 100 cc/h due to sepsis. Patient was intubated and is on assist-control. Patient is currently requiring pressor support. Chest x-ray this morning showed severe bilateral pulmonary infiltration which has worsened. Was given IV Lasix. 2D echocardiogram showed dilated LV and severe LV systolic dysfunction. Ejection fraction 30 to 35%. Laboratory showed WBC worsened to 26.6 hemoglobin 10.3 and platelets 190 Sodium 139 potassium 3.6 chloride 108 bicarb is 20 BUN 15 and creatinine 0.64 blood sugar 206 and A1c 6.8 lactic acid 5.4 this morning. Liver enzymes are elevated. Cardiology and pulmonary is on board. Patient is being continued on antibiotics changed to Zosyn. Procalcitonin level is elevated at 0.61. 10/11/2023 Patient is in the MICU. Intubated and sedated. On mechanical ventilator. Patient is also requiring pressor support with Levophed and also on dobutamine drip. Urine output remains low. Patient has been afebrile. Nutrition via NG tube. Patient was also started on IV hydration with normal saline at 75 cc/h. Chest x-ray showed multifocal airspace opacities are not significantly changed. Support tubes and proper positioning. Patient remains on antibiotics in the form of Zosyn. 2D echocardiogram showed left ventricular ejection fraction 30 to 35%. Mild right ventricular dilatation. Trace pericardial effusion and pleural effusion was identified. Laboratory data showed WBC 24.9 hemoglobin 9.6 and platelets 187 Sodium 137 potassium 4.2 chloride 102 bicarb is 26 BUN 25 and creatinine 1.1 and blood sugar 264. Patient is scheduled for paracentesis tomorrow. Blood cultures negative so far. Cardiology and pulmonary is on board. 10/12/2023 Patient is in the MICU. Remains intubated and sedated. On assist-control with respiratory of 20 tidal volume 350 and FiO2 40% and PEEP of 10. Continue to be on vasopressin and norepinephrine. Patient was also started on IV hydration with normal saline at 75 cc/h. Urine output is marginal. Patient remains on antibiotics Zosyn. Repeat chest x-ray this morning showed similar multifocal airspace opacities. Patient was given a dose of IV Lasix. Stable support tubes. Laboratory data showed WBC 24.6 hemoglobin 9.1 and platelets 144 BUN 40 and creatinine 1.09 and blood sugar is elevated at 312. Levemir dose increased to 12 units twice daily and continue with insulin sliding scale. Cardiology and critical care team is on board.Patient is scheduled to go for paracentesis today. 10/13/2023 Patient remains in the MICU. On assist-control with FiO2 35% and PEEP of 10. Tidal volume 350. Currently sedation is off. Chest x-ray showed stable exam mild pulmonary edema. Patient underwent ultrasound-guided paracentesis with 1800 cc clear straw- colored fluid drained. Pathology and culture is pending. Laboratory data showed WBC 25.4 hemoglobin 8.7 and platelets 127 BUN 49 creatinine 1.03 potassium 4.2 and blood sugar 159. Patient is being current on IV Solu-Medrol 60 mg every 6 hourly and is also on antibiotics, Zosyn. 10/14/2023 Patient is a pleasant 48 years old female who presents with bilateral pneumonia with acute hypoxic respiratory failure requiring intubation and mechanical ventilation. CTA of the chest was negative for PE which is done secondary to high d-dimer, CT of the abdomen showing thickened small bowel loops suspicious for enteritis, patient currently covered with Zosyn ProBNP is elevated 2039, chest x-ray showing mild was for congestion and ejection fraction is 30-35% patient is receiving IV Lasix and She Is Intubated. She Is Also on Salmeterol 60 Mg for Possible Acute COPD Exacerbation. Patient on Insulin Levemir 12 Units Twice Daily She Has Decompensated Liver Cirrhosis Status Post Paracentesis on 10/12 Where 1800 ML of Fluid Aspirated Patient today undergoing sedation holiday with propofol was off since yesterday Patient got agitated and she was placed on Precedex as well as IV morphine with little help so far Discussed with the bedside nurse Patient could not tolerate CPAP earlier, currently continued on mechanical ventilation with P5 and FiO2 of 40% Family at bedside 10/15/2023 Patient remains in the ICU intubated and sedated Over the last 2 days she was undergoing sedation holiday and propofol was stopped Today she was more agitated and she was placed back on a propofol Pulmonary level yesterday was 20 but given her worsening mentation we ordered a repeat ammonia level and KUB for abdomen slightly distended She had paracentesis related to her decompensated liver cirrhosis about 3 days ago with 1800 mL of fluid taken out We going to order a KUB but possible patient will require more paracentesis She received 1 dose of IV Lasix Normal saline 75 mL output 250 mL/h She remains on Zosyn and Solu-Medrol 60 mg Discussed with the bedside nurse 10/16/2023 Patient remains in the ICU intubated and sedated Yesterday after on repeat chest x-ray showing pulmonary congestion IV fluids of normal saline 50 mL was stopped and patient was started on IV Lasix 40 mg every 8 hours Repeat chest x-ray this morning testosterone pulmonary congestion, KUB showing nonobstructive pattern most likely patient has ascites related to her liver cirrhosis. Also patient placed on low-dose Lopressor suffers a percent respiratory blood pressure Metoprolol 25 mg 3 times a day per [employer] This she swelling is on board and patient glucose is controlled. 10/17/2023 Patient is from his ICU sedated and intubated. Today propofol was stopped and patient could follow command Weaning trial is attempting and patient was replaced back on before meals mode because of her tachypnea Also patient is planned to undergo paracentesis so between today and tomorrow for her ascites related to her liver cirrhosis. Extremities without obvious on Medrol 40 mg, Zosyn, IV Lasix 40 mg every 8 hours. 10/18/2023 Patient remains intubated and sedated in the ICU with pulmonary/critical care team followed closely. Patient under going sedation holiday for possible extubation She still has leukocytosis of 24,000, hemoglobin 8.6. IV fluids discontinued Currently on Solu-Medrol 40 mg, Zosyn and Lasix 40 mg 3 times a day. 10/19/2023 Patient is status post extubation today. She is awake alert and family at bedside trying to feed her. She developed a large direct well. She is calm pleasant looks little bit tired. Denies any specific symptoms with no chest pain or dyspnea. Abdomen is mildly distended but soft no tenderness. She remains on IV Solu-Medrol 40 mg twice daily, IV Lasix 40 twice daily. She is not an antibiotic I am resuming the care of the patient Patient awake alert looks relaxed and comfortable in bed She is eating her meal with no difficulty Her abdomen mildly distended She status post paracentesis with 4.2 L of fluid taken out She is mildly tachycardic with a heart attack and 106 Blood pressure 95/59 Sodium on the low side to 127 WBCs 20 9K, patient he has history of chronic leukocytosis since 2019 Hemoglobin stable 7.6. Platelet count 104 INR 1.6. Patient remains on IV salmeterol 40 mg and IV Lasix 40 mg Objective - Vital Signs Vital signs: Vital Signs Temp 98.5 F 10/23/23 08:08 Pulse 102 H 10/23/23 12:07 Resp 16 10/23/23 11:09 BP 104/60 10/23/23 11:09 Pulse Ox 95 10/23/23 11:09 FiO2 50 10/18/23 14:10 Intake & Output 10/22/23 10/23/23 10/23/23 18:59 06:59 18:59 Intake Total 400 Output Total 300 Balance 400 -300 Weight 42.5 kg Intake: Oral 400 Output: Urine 300 Other: Voiding Method External Catheter # Voids 0 # Bowel Movements 0 ABP, PAP, CO, CI - Last Documented Arterial Blood Pressure 111/50 - Exam GENERAL: The patient is alert and oriented x3, not in any acute distress. Well developed, well nourished. HEENT: Pupils are round and equally reacting to light. EOMI. No scleral icterus. No conjunctival pallor. Normocephalic, atraumatic. No pharyngeal erythema. No thyromegaly. CARDIOVASCULAR: S1 and S2 present. No murmurs, rubs, or gallops. PULMONARY: Chest is clear to auscultation, no wheezing , no crackles. -ABDOMEN: Soft, nontender, mildly distended, normoactive bowel sounds. No palpable organomegaly. MUSCULOSKELETAL: No joint swelling or deformity. EXTREMITIES: No cyanosis, clubbing, or pedal edema. NEUROLOGICAL: Gross neurological examination did not reveal any focal deficits. SKIN: No rashes. no petechiae. - Labs CBC & Chem 7: 10/23/23 03:02 10/23/23 03:02 Labs: Abnormal Lab Results - Last 24 Hours (Table) 10/22/23 10/22/23 10/22/23 Range/Units 14:38 14:38 17:50 WBC 31.4 H (3.8-10.6) k/uL RBC 2.18 L (3.80-5.40) m/uL Hgb 7.6 L (11.4-16.0) gm/dL Hct 23.7 L (34.0-46.0) % MCV 108.8 H (80.0-100.0) fL MCH (25.0-35.0) pg RDW 22.6 H (11.5-15.5) % Plt Count 118 L (150-450) k/uL Neutrophils # (1.3-7.7) k/uL Neutrophils # (Manual) 29.20 H (1.3-7.7) k/uL Lymphocytes # (Manual) 0.31 L (1.0-4.8) k/uL Monocytes # (Manual) 1.57 H (0-1.0) k/uL Macrocytosis Marked A PT (10.0-12.5) sec INR (<1.2) Sodium 128 L (137-145) mmol/L Potassium 2.8 L (3.5-5.1) mmol/L Chloride 95 L (98-107) mmol/L BUN 28 H (7-17) mg/dL Creatinine 0.49 L (0.52-1.04) mg/dL Glucose 246 H (74-99) mg/dL POC Glucose (mg/dL) 232 H (70-110) mg/dL Calcium 7.4 L (8.4-10.2) mg/dL 10/22/23 10/23/23 10/23/23 Range/Units 20:10 03:02 03:02 WBC 29.3 H (3.8-10.6) k/uL RBC 2.15 L (3.80-5.40) m/uL Hgb 7.6 L (11.4-16.0) gm/dL Hct 23.2 L (34.0-46.0) % MCV 107.9 H (80.0-100.0) fL MCH 35.5 H (25.0-35.0) pg RDW 22.8 H (11.5-15.5) % Plt Count 104 L (150-450) k/uL Neutrophils # 27.1 H (1.3-7.7) k/uL Neutrophils # (Manual) (1.3-7.7) k/uL Lymphocytes # (Manual) (1.0-4.8) k/uL Monocytes # (Manual) (0-1.0) k/uL Macrocytosis Marked A PT (10.0-12.5) sec INR (<1.2) Sodium 127 L (137-145) mmol/L Potassium (3.5-5.1) mmol/L Chloride 94 L (98-107) mmol/L BUN 30 H (7-17) mg/dL Creatinine (0.52-1.04) mg/dL Glucose 159 H (74-99) mg/dL POC Glucose (mg/dL) 117 H (70-110) mg/dL Calcium 7.5 L (8.4-10.2) mg/dL 10/23/23 10/23/23 10/23/23 Range/Units 08:09 09:39 12:07 WBC (3.8-10.6) k/uL RBC (3.80-5.40) m/uL Hgb (11.4-16.0) gm/dL Hct (34.0-46.0) % MCV (80.0-100.0) fL MCH (25.0-35.0) pg RDW (11.5-15.5) % Plt Count (150-450) k/uL Neutrophils # (1.3-7.7) k/uL Neutrophils # (Manual) (1.3-7.7) k/uL Lymphocytes # (Manual) (1.0-4.8) k/uL Monocytes # (Manual) (0-1.0) k/uL Macrocytosis PT 16.8 H (10.0-12.5) sec INR 1.6 H (<1.2) Sodium (137-145) mmol/L Potassium (3.5-5.1) mmol/L Chloride (98-107) mmol/L BUN (7-17) mg/dL Creatinine (0.52-1.04) mg/dL Glucose (74-99) mg/dL POC Glucose (mg/dL) 244 H 163 H (70-110) mg/dL Calcium (8.4-10.2) mg/dL Assessment and Plan Assessment: Acute hypoxic respiratory failure secondary to multifocal pneumonia and pulmonary edema. Patient is 8 L high flow oxygen--> intubated on mechanical ventilator. Pulmonary edema likely due to cardiogenic with low ejection fraction 30 to 35%. Acute HFrEF with ejection fraction 30 -45% Multifocal pneumonia Sepsis/septic shock secondary to above. off pressor support COPD with acute exacerbation Lactic acidosis 7.0 on admission Alcoholic liver cirrhosis Ascites Patient is status post paracentesis on 10/13/2023. Hepatic steatosis and hyperbilirubinemia and elevated liver enzymes History of severe alcohol abuse. Quit 5 years ago History of chronic pancreatitis Anxiety/depression Plan: Patient is awake and alert and tolerates diet well Continue with IV Solu-Medrol medical floor No antibiotic on IV Solu-Medrol and DuoNebs as needed. c/w Lasix 40 mg IV Pulmonary team on the case DVT prophylaxis with Lovenox subcu GI prophylaxis Prognosis is guarded.
[2023-10-24 07:24] LABS: Glucose,Whole Blood 106 mg/dL (70-110)
--- NOTE | 2023-10-24 08:26 | XR ---
EXAMINATION TYPE: XR chest 1V DATE OF EXAM: 10/24/2023 COMPARISON: 10/20/2023 HISTORY: Shortness of breath TECHNIQUE: Single frontal view of the chest is obtained. FINDINGS: A limited inspiration with elevated right hemidiaphragm. Persistent bilateral lower lobe i nfiltrate and tiny left effusion. Mild improvement in the interstitial relative prior exam. No pneumo thorax. Heart size normal. Diffuse osteopenia. IMPRESSION: 1. COPD with improving interstitial changes correlate for resolving venous congestion. 2. Bibasilar infiltrate is improved correlate for improving pneumonia versus atelectasis
[2023-10-24 11:20] LABS: BUN/Creat Ratio 48.33 Ratio (12.00-20.00); Calcium 7.9 mg/dL (8.7-10.3); Carbon Dioxide 24.5 mmol/L (21.6-31.8); Chloride 89 mmol/L (96-109); Glucose 95 mg/dL (70-110); Potassium 3.4 mmol/L (3.5-5.5); Sodium 125 mmol/L (135-145)
[2023-10-24 11:39] LABS: Basophils # (A) 0.04 X 10*3/uL (0.00-0.10); Basophils % (A) 0.1 %; Eosinophils # (A) 0 X 10*3/uL (0.04-0.35); Eosinophils % (A) 0 %; HCT 21.6 % (37.2-46.3); HGB 6.7 g/dL (12.0-15.0); Lymphocytes # (A) 1.55 X 10*3/uL (0.90-5.00); Lymphocytes % (A) 5.4 %; MCH 34.7 pg (27.0-32.0); MCV 111.9 FL (80.0-97.0); Macrocytosis (M) 2+; Monocytes # (A) 1.67 X 10*3/uL (0.20-1.00); Monocytes % (A) 5.8 %; NRBC Per 100 WBC 0.08 X 10*3/uL (0.00-0.01); Neutrophils # (A) 25.19 X 10*3/uL (1.80-7.70); Neutrophils % (A) 87.8 %; Platelet Count 120 X 10*3/uL (140-440); RBC 1.93 X 10*6/uL (4.10-5.20); RDW 25.6 % (11.5-14.5)
[2023-10-24] MEDS ORDERED: FUROSEMIDE 10 MG/ML 2 ML VIAL IV PRN (11:43)
--- NOTE | 2023-10-24 11:46 | P.PN ---
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 Patient states that she has been having shortness of breath for the past week and a half and did get worse in the last few days. Patient tried using her breathing treatments at home but did not get improvement. Patient was recently given antibiotics and prednisone by her physician. She has been increasingly weak and not feeling well. Patient presented to ER for evaluation. He was also complaining of cough without any sputum production. Also complaining of chest tightness and anxiety. Denies any leg swelling. No nausea or vomiting. Patient is also having increased abdominal girth. No prior history of paracentesis as per patient. Denies any fever at home. On admission patient was tachycardic and tachypneic and pulse ox 80% on room air. Currently requiring 8 L of oxygen via nasal cannula. CT of the abdomen pelvis showed patchy bilateral airspace consolidation consistent with multilobar pneumonia. Hepatic steatosis, abdominal ascites. Wa ll thickening of small bowel correlate for mild enteritis versus spontaneous bacterial peritonitis. CTA chest showed no PE. Patchy bilateral airspace consolidation consistent with multilobar pneumonia. Chest x-ray showed similar multifocal airspace opacities. Laboratory data showed WBC 16.5 hemoglobin 10.0 MCV 102.4 and platelets 188 and neutrophils 14.4 INR 1.7, D-dimer 2.8 Sodium 132 potassium 3.7 chloride 95 bicarbonate 24 BUN 18 and creatinine 0.84 and blood sugar 270 and lactic acid 7.0 on admission, calcium 8.1, total bilirubin level is 4.6 AST 113 ALT 68 and alk phos 208 Troponin 0.012 and proBNP 2040 and albumin 3.0 Influenza A, B, RSV and COVID-19 PCR not detected. 10/10/2023 Patient was transferred to MICU. Overnight patient's respiratory status worsened due to multifocal pneumonia and also patient is receiving fluids at 100 cc/h due to sepsis. Patient was intubated and is on assist-control. Patient is currently requiring pressor support. Chest x-ray this morning showed severe bilateral pulmonary infiltration which has worsened. Was given IV Lasix. 2D echocardiogram showed dilated LV and severe LV systolic dysfunction. Ejection fraction 30 to 35%. Laboratory showed WBC worsened to 26.6 hemoglobin 10.3 and platelets 190 Sodium 139 potassium 3.6 chloride 108 bicarb is 20 BUN 15 and creatinine 0.64 blood sugar 206 and A1c 6.8 lactic acid 5.4 this morning. Liver enzymes are elevated. Cardiology and pulmonary is on board. Patient is being continued on antibiotics changed to Zosyn. Procalcitonin level is elevated at 0.61. 10/11/2023 Patient is in the MICU. Intubated and sedated. On mechanical ventilator. Patient is also requiring pressor support with Levophed and also on dobutamine drip. Urine output remains low. Patient has been afebrile. Nutrition via NG tube. Patient was also started on IV hydration with normal saline at 75 cc/h. Chest x-ray showed multifocal airspace opacities are not significantly changed. Support tubes and proper positioning. Patient remains on antibiotics in the form of Zosyn. 2D echocardiogram showed left ventricular ejection fraction 30 to 35%. Mild right ventricular dilatation. Trace pericardial effusion and pleural effusion was identified. Laboratory data showed WBC 24.9 hemoglobin 9.6 and platelets 187 Sodium 137 potassium 4.2 chloride 102 bicarb is 26 BUN 25 and creatinine 1.1 and blood sugar 264. Patient is scheduled for paracentesis tomorrow. Blood cultures negative so far. Cardiology and pulmonary is on board. 10/12/2023 Patient is in the MICU. Remains intubated and sedated. On assist-control with respiratory of 20 tidal volume 350 and FiO2 40% and PEEP of 10. Continue to be on vasopressin and norepinephrine. Patient was also started on IV hydration with normal saline at 75 cc/h. Urine output is marginal. Patient remains on antibiotics Zosyn. Repeat chest x-ray this morning showed similar multifocal airspace opacities. Patient was given a dose of IV Lasix. Stable support tubes. Laboratory data showed WBC 24.6 hemoglobin 9.1 and platelets 144 BUN 40 and creatinine 1.09 and blood sugar is elevated at 312. Levemir dose increased to 12 units twice daily and continue with insulin sliding scale. Cardiology and critical care team is on board.Patient is scheduled to go for paracentesis today. 10/13/2023 Patient remains in the MICU. On assist-control with FiO2 35% and PEEP of 10. Tidal volume 350. Currently sedation is off. Chest x-ray showed stable exam mild pulmonary edema. Patient underwent ultrasound-guided paracentesis with 1800 cc clear straw- colored fluid drained. Pathology and culture is pending. Laboratory data showed WBC 25.4 hemoglobin 8.7 and platelets 127 BUN 49 creatinine 1.03 potassium 4.2 and blood sugar 159. Patient is being current on IV Solu-Medrol 60 mg every 6 hourly and is also on antibiotics, Zosyn. 10/14/2023 Patient is a pleasant 48 years old female who presents with bilateral pneumonia with acute hypoxic respiratory failure requiring intubation and mechanical ventilation. CTA of the chest was negative for PE which is done secondary to high d-dimer, CT of the abdomen showing thickened small bowel loops suspicious for enteritis, patient currently covered with Zosyn ProBNP is elevated 2039, chest x-ray showing mild was for congestion and ejection fraction is 30-35% patient is receiving IV Lasix and She Is Intubated. She Is Also on Salmeterol 60 Mg for Possible Acute COPD Exacerbation. Patient on Insulin Levemir 12 Units Twice Daily She Has Decompensated Liver Cirrhosis Status Post Paracentesis on 10/12 Where 1800 ML of Fluid Aspirated Patient today undergoing sedation holiday with propofol was off since yesterday Patient got agitated and she was placed on Precedex as well as IV morphine with little help so far Discussed with the bedside nurse Patient could not tolerate CPAP earlier, currently continued on mechanical ventilation with P5 and FiO2 of 40% Family at bedside 10/15/2023 Patient remains in the ICU intubated and sedated Over the last 2 days she was undergoing sedation holiday and propofol was stopped Today she was more agitated and she was placed back on a propofol Pulmonary level yesterday was 20 but given her worsening mentation we ordered a repeat ammonia level and KUB for abdomen slightly distended She had paracentesis related to her decompensated liver cirrhosis about 3 days ago with 1800 mL of fluid taken out We going to order a KUB but possible patient will require more paracentesis She received 1 dose of IV Lasix Normal saline 75 mL output 250 mL/h She remains on Zosyn and Solu-Medrol 60 mg Discussed with the bedside nurse 10/16/2023 Patient remains in the ICU intubated and sedated Yesterday after on repeat chest x-ray showing pulmonary congestion IV fluids of normal saline 50 mL was stopped and patient was started on IV Lasix 40 mg every 8 hours Repeat chest x-ray this morning testosterone pulmonary congestion, KUB showing nonobstructive pattern most likely patient has ascites related to her liver cirrhosis. Also patient placed on low-dose Lopressor suffers a percent respiratory blood pressure Metoprolol 25 mg 3 times a day per Battery [employer] This she swelling is on board and patient glucose is controlled. 10/17/2023 Patient is from his ICU sedated and intubated. Today propofol was stopped and patient could follow command Weaning trial is attempting and patient was replaced back on before meals mode because of her tachypnea Also patient is planned to undergo paracentesis so between today and tomorrow for her ascites related to her liver cirrhosis. Extremities without obvious on Medrol 40 mg, Zosyn, IV Lasix 40 mg every 8 hours. 10/18/2023 Patient remains intubated and sedated in the ICU with pulmonary/critical care team followed closely. Patient under going sedation holiday for possible extubation She still has leukocytosis of 24,000, hemoglobin 8.6. IV fluids discontinued Currently on Solu-Medrol 40 mg, Zosyn and Lasix 40 mg 3 times a day. 10/19/2023 Patient is status post extubation today. She is awake alert and family at bedside trying to feed her. She developed a large direct well. She is calm pleasant looks little bit tired. Denies any specific symptoms with no chest pain or dyspnea. Abdomen is mildly distended but soft no tenderness. She remains on IV Solu-Medrol 40 mg twice daily, IV Lasix 40 twice daily. She is not an antibiotic I am resuming the care of the patient Patient awake alert looks relaxed and comfortable in bed She is eating her meal with no difficulty Her abdomen mildly distended She status post paracentesis with 4.2 L of fluid taken out She is mildly tachycardic with a heart attack and 106 Blood pressure 95/59 Sodium on the low side to 127 WBCs 20 9K, patient he has history of chronic leukocytosis since 2019 Hemoglobin stable 7.6. Platelet count 104 INR 1.6. Patient remains on IV salmeterol 40 mg and IV Lasix 40 mg 10/24/2023 Patient awake alert, sitting up in chair, looks pleasant Patient denies any specific symptoms, no dyspnea or chest pain or coughing. Abdominal distention is mild, improvement after paracentesis, no urinary symptoms and her bowel movement is formed. No confusion, no abdominal pain or tenderness. Her fluid overload is improving Actually she has mild hypovolemic hyponatremia today with sodium 125. Hemoglobin dropped to 6.7 and she is going to be given 1 unit of blood transfu jono WBC is elevated at 28,000 which is chronic Chest x-ray showing improvement aeration. please refer to the for report She still on office on Medrol 4 mg twice daily and IV Lasix 40 mg twice daily Objective - Vital Signs Vital signs: Vital Signs Temp 98.5 F 10/24/23 08:40 Pulse 106 H 10/24/23 08:40 Resp 12 10/24/23 08:40 BP 95/58 10/24/23 08:40 Pulse Ox 94 L 10/24/23 08:40 FiO2 50 10/18/23 14:10 Intake & Output 10/23/23 10/24/23 10/24/23 18:59 06:59 18:59 Output Total 300 600 Balance -300 -600 Weight 37 kg Output: Urine 300 600 Other: Voiding Method External Catheter # Voids 0 # Bowel Movements 0 ABP, PAP, CO, CI - Last Documented Arterial Blood Pressure 111/50 - Exam GENERAL: The patient is alert and oriented x3, not in any acute distress. Well developed, well nourished. HEENT: Pupils are round and equally reacting to light. EOMI. No scleral icterus. No conjunctival pallor. Normocephalic, atraumatic. No pharyngeal erythema. No thyromegaly. CARDIOVASCULAR: S1 and S2 present. No murmurs, rubs, or gallops. PULMONARY: Chest is clear to auscultation, no wheezing , no crackles. -ABDOMEN: Soft, nontender, mildly distended, normoactive bowel sounds. No palpable organomegaly. MUSCULOSKELETAL: No joint swelling or deformity. EXTREMITIES: No cyanosis, clubbing, or pedal edema. NEUROLOGICAL: Gross neurological examination did not reveal any focal deficits. SKIN: No rashes. no petechiae. - Labs CBC & Chem 7: 10/24/23 06:18 10/24/23 06:18 Labs: Abnormal Lab Results - Last 24 Hours (Table) 10/23/23 10/23/23 10/24/23 Range/Units 12:07 20:56 06:18 WBC 28.70 H (4.50-10.00) X 10*3/uL RBC 1.93 L (4.10-5.20) X 10*6/uL Hgb 6.7 A* (12.0-15.0) g/dL Hct 21.6 L (37.2-46.3) % MCV 111.9 H (80.0-97.0) FL MCH 34.7 H (27.0-32.0) pg MCHC 31.0 L (32.0-37.0) g/dL RDW 25.6 H (11.5-14.5) % Plt Count 120 L (140-440) X 10*3/uL MPV 13.0 H (9.5-12.2) FL Immature Gran # 0.25 H (0.00-0.04) X 10*3/uL Neutrophils # 25.19 H (1.80-7.70) X 10*3/uL Monocytes # 1.67 H (0.20-1.00) X 10*3/uL Eosinophils # 0 L (0.04-0.35) X 10*3/uL NRBC/100 WBC Diff 0.08 H (0.00-0.01) X 10*3/uL Macrocytosis (manual) 2+ A Sodium (135-145) mmol/L Potassium (3.5-5.5) mmol/L Chloride (96-109) mmol/L BUN (9.0-27.0) mg/dL BUN/Creatinine Ratio (12.00-20.00) Ratio POC Glucose (mg/dL) 163 H 219 H (70-110) mg/dL Calcium (8.7-10.3) mg/dL 10/24/23 Range/Units 06:18 WBC (4.50-10.00) X 10*3/uL RBC (4.10-5.20) X 10*6/uL Hgb (12.0-15.0) g/dL Hct (37.2-46.3) % MCV (80.0-97.0) FL MCH (27.0-32.0) pg MCHC (32.0-37.0) g/dL RDW (11.5-14.5) % Plt Count (140-440) X 10*3/uL MPV (9.5-12.2) FL Immature Gran # (0.00-0.04) X 10*3/uL Neutrophils # (1.80-7.70) X 10*3/uL Monocytes # (0.20-1.00) X 10*3/uL Eosinophils # (0.04-0.35) X 10*3/uL NRBC/100 WBC Diff (0.00-0.01) X 10*3/uL Macrocytosis (manual) Sodium 125 L (135-145) mmol/L Potassium 3.4 L (3.5-5.5) mmol/L Chloride 89 L (96-109) mmol/L BUN 29.0 H (9.0-27.0) mg/dL BUN/Creatinine Ratio 48.33 H (12.00-20.00) Ratio POC Glucose (mg/dL) (70-110) mg/dL Calcium 7.9 L (8.7-10.3) mg/dL Assessment and Plan Assessment: Acute hypoxic respiratory failure secondary to multifocal pneumonia and pulmonary edema. Patient is 8 L high flow oxygen--> intubated on mechanical ventilator. Pulmonary edema likely due to cardiogenic with low ejection fraction 30 to 35%. Acute HFrEF with ejection fraction 30 -45% Multifocal pneumonia Sepsis/septic shock secondary to above. off pressor support COPD with acute exacerbation Lactic acidosis 7.0 on admission Alcoholic liver cirrhosis Ascites Patient is status post paracentesis on 10/13/2023. Hepatic steatosis and hyperbilirubinemia and elevated liver enzymes History of severe alcohol abuse. Quit 5 years ago History of chronic pancreatitis Anxiety/depression Plan: Patient is awake and alert and tolerates diet well Continue with IV Solu-Medrol medical floor No antibiotic Transfuse for hemoglobin less than 7.Give 1 unit on 10/24 c/w Lasix 40 mg IV Pulmonary team on the case DVT prophylaxis with Lovenox subcu GI prophylaxis Prognosis is guarded.
--- NOTE | 2023-10-24 11:52 | P.PN ---
Subjective Progress Note Date: 10/24/23 On 10/23/2023, the patient is being seen for a follow-up. The patient is known to have liver cirrhosis and chronic pancreatitis. The patient is a recovering alcoholic and she quit drinking approximately 5 years ago. The patient also has history of smoking, chronic anxiety and depression and acid reflux. The patient presented to to the hospital because of multilobar pneumonia and hypoxic respiratory failure. The patient had bilateral patchy airspace disease. The patient was treated in the intensive care unit. During the course of her ICU stay, the patient developed also worsening pulmonary edema in addition to underlying pneumonia. The patient had to be intubated and placed on mechanical ventilator. Note that she also has CHF with LV dysfunction and ejection fraction of 30%. No significant valvular abnormalities. She was treated with IV Zosyn and she was also placed on diuretics. The viral panel was negative. Her proBNP level was above 2000. The procalcitonin level was at 0.6. The patient remains on a mechanical ventilator and she was gradually weaned off the pressors as the patient required pressors to treat her sepsis. She was ultimately extubated on 09/18/2023 and currently she is on the medical floor maintained on 2 L of oxygen by nasal cannula. The most recent chest x-ray was done on 10/20/2023 that showed right middle lobe and left lower lobe airspace disease with hazy appearance of the lungs compatible with pneumonia. The patient also has abdominal distention and ascites. Ultrasound the abdomen that was done showed moderate degree of ascites and the patient underwent a paracentesis today with a total of 4.2 L of fluid removed. The patient remains on DuoNeb nebulized treatments [id number]. The patient is also on Lasix 40 mg IV every 12 hours. The patient completed her antibiotic course. Sputum culture from 10/12/2022 was positive for Marleni. The patient is white cell count of 29 with a hemoglobin 7.6 and a platelet count of 98. Sodium is at 127, BUN is at 30 creatinine 0.5 and a potassium level of 3.8. On today's evaluation after 02/2024, the patient sitting up on the chair. No significant respiratory distress and the patient is currently on room air oxygen. He is on Lasix 40 mg IV every 12 hours. The patient is in negative fluid balanceAnd the patient had a repeat chest x-ray that showed improving and then consistent changes bilaterally and resolving pulm vascular congestion. Also, the bibasilar pulm infiltrates also improved. The patient has no specific complaints. The white cell count is still elevated at 28 and this needs to be monitored. Hemoglobin has dropped down to 6.7 and the platelet count is at 120. No evidence of any GI bleeding at this point in time. Sodium levels at 125, BUN is at 29 with a creatinine of 0.6 and a potassium level at 3.4. The patient has no signs of encephalopathy. She is communicating. Denies having any chest pain. No nausea or vomiting or emesis at this point in time. She remains on Lovenox 40 mg subcu for DVT prophylaxis. She remains also on IV Solu-Medrol which will be discontinued today. Objective - Vital Signs Vital signs: Vital Signs Temp 97.3 F L 10/24/23 01:18 Pulse 112 H 10/24/23 08:30 Resp 18 10/24/23 01:18 BP 96/57 10/24/23 01:18 Pulse Ox 93 L 10/24/23 08:18 FiO2 50 10/18/23 14:10 Intake & Output 10/23/23 10/24/23 10/24/23 18:59 06:59 18:59 Output Total 300 600 Balance -300 -600 Weight 37 kg Output: Urine 300 600 Other: Voiding Method External Catheter # Voids 0 # Bowel Movements 0 ABP, PAP, CO, CI - Last Documented Arterial Blood Pressure 111/50 - Exam GENERAL EXAM: Alert, pleasant 48-year-old female, on room air oxygen, resting in bed, in no apparent distress. The patient remains jaundiced HEAD: Normocephalic. EYES: Normal reaction of pupils, equal size. NOSE: Clear with pink turbinates. THROAT: No erythema or exudates. NECK: No masses, no JVD. CHEST: No chest wall deformity. LUNGS: Equal air entry with no crackles, wheeze, rhonchi or dullness. CVS: S1 and S2 normal with no audible murmur, regular rhythm. ABDOMEN: Edmar distended, positive fluid wave, normal bowel sounds, no guarding or rigidity. SPINE: No scoliosis or deformity SKIN: No rashes CENTRAL NERVOUS SYSTEM: No focal deficits, tone is normal in all 4 extremities. EXTREMITIES: There is 1+ peripheral edema. No clubbing, no cyanosis. Peripheral pulses are intact. - Labs CBC & Chem 7: 10/24/23 06:18 10/24/23 06:18 Labs: Abnormal Lab Results - Last 24 Hours (Table) 10/23/23 10/23/23 10/23/23 Range/Units 09:39 12:07 20:56 PT 16.8 H (10.0-12.5) sec INR 1.6 H (<1.2) POC Glucose (mg/dL) 163 H 219 H (70-110) mg/dL Assessment and Plan Plan: Acute hypoxic respiratory failure secondary to acute bilateral multilobar pneumonia as well as some fluid overload/CHF, status post intubation and mechanical ventilation on October 10, 2023. S/P successful extubation on October 18, 2023. The patient remains extubated on room air oxygen. Follow-up chest x- ray from today shows improvement in the bibasilar pulm infiltrates and the pulmonary vascular congestion. The patient is responding nicely to diuretics. The patient is currently on room air oxygen. Acute pulmonary edema, cardiogenic in origin, with an ejection fraction of 20%, still on diuretics and the patient is receiving Lasix 40 mg every 12 hours. Chest x-ray findings are improving. Acute exacerbation of chronic obstructive pulmonary disease secondary to above Ascites, status post paracentesis abdominis, underwent paracentesis on 10/23/2023 with a total of 4.2 L of ascitic fluid being drained. Noted the patient during the course of her illness. Also another paracentesis done 10/17/2023. Chronic and ongoing tobacco dependence History of heavy alcohol abuse however quit 5 years ago History of cirrhosis secondary to above History of chronic pancreatitis secondary to above History of anxiety/depression Jaundice to the bilirubin level of 3.0 Profound motor weakness, generalized secondary to above-mentioned comorbidities Chronic hyponatremia related to liver cirrhosis Diabetes mellitus secondary to above maintained on Levemir insulin 12 units daily along with sliding scale coverage Acute on top of chronic anemia hemoglobin is dropped down to 6.7. Watch for any signs of GI bleeding. Chronic thrombocytopenia related to liver disease, platelet count improved and currently is up to 120 Plan: Chest x-ray from today is favorable and the patient will be kept on diuretics and the patient is currently on room air oxygen. Performed another paracentesis on 10/23/2023 with a total of 4.2 L of ascitic fluid being drained Continue Lasix 40 mg every 12 hours Monitor hemoglobin Monitor platelets The need for transfusion will be kept up to the medical team Monitor hematologic profile including sodium Sitting up in a chair and clinically stable.
[2023-10-24 11:54] LABS: Glucose,Whole Blood 162 mg/dL (70-110)
[2023-10-24 16:56] LABS: Glucose,Whole Blood 175 mg/dL (70-110)
[2023-10-24] MEDS ORDERED: Potassium Replacement Protocol 1 EACH MISC MISCELLANE PRN (18:34)
[2023-10-24 20:58] LABS: Glucose,Whole Blood 87 mg/dL (70-110)
[2023-10-24] MEDS: POTASSIUM CHLORIDE ER 20 MEQ TAB.ER PO SCH (21:19)
[2023-10-24] MEDS: LACTULOSE 20 GM/30 ML CUP PO SCH (21:19)
[2023-10-25] MEDS ORDERED: Potassium Replacement Protocol 1 EACH MISC MISCELLANE PRN (01:25)
[2023-10-25] MEDS: POTASSIUM CHLORIDE ER 20 MEQ TAB.ER PO SCH (02:16)
[2023-10-25 07:05] LABS: Glucose,Whole Blood 53 mg/dL (70-110)
[2023-10-25 07:48] LABS: Glucose,Whole Blood 83 mg/dL (70-110)
[2023-10-25 11:46] LABS: ALT 78 U/L (8-44); AST 69 U/L (13-35); Albumin 2.7 g/dL (3.8-4.9); Albumin/Globulin Ratio 0.73 Ratio (1.60-3.17); Alkaline Phosphatase 119 U/L (41-126); BUN/Creat Ratio 43.83 Ratio (12.00-20.00); Bilirubin, Conjugated 3.18 mg/dL (0.20-0.40); Bilirubin,Unconjugated 2.42 mg/dL (0.20-1.00); Blood Urea Nitrogen 26.3 mg/dL (9.0-27.0); Calcium 8.4 mg/dL (8.7-10.3); Carbon Dioxide 25.9 mmol/L (21.6-31.8); Chloride 91 mmol/L (96-109); Globulin 3.7 g/dL (1.6-3.3); Glucose 42 mg/dL (70-110); Potassium 4.1 mmol/L (3.5-5.5); Sodium 129 mmol/L (135-145); Total Bilirubin 5.6 mg/dL (0.3-1.2); Total Protein 6.4 g/dL (6.2-8.2)
[2023-10-25 11:53] LABS: Anisocytosis (M) 2+; Basophils # (A) 0.05 X 10*3/uL (0.00-0.10); Basophils % (A) 0.2 %; Eosinophils # (A) 0 X 10*3/uL (0.04-0.35); Eosinophils % (A) 0 %; HCT 28.8 % (37.2-46.3); HGB 9.4 g/dL (12.0-15.0); Lymphocytes # (A) 1.48 X 10*3/uL (0.90-5.00); Lymphocytes % (A) 4.6 %; MCH 32.8 pg (27.0-32.0); MCHC 32.6 g/dL (32.0-37.0); MCV 100.3 FL (80.0-97.0); Macrocytosis (M) 2+; Mean Platelet Volume 13.3 FL (9.5-12.2); Monocytes # (A) 1.72 X 10*3/uL (0.20-1.00); Monocytes % (A) 5.3 %; NRBC Per 100 WBC 0.06 X 10*3/uL (0.00-0.01); Neutrophils % (A) 88.9 %; Platelet Count 139 X 10*3/uL (140-440); Polychromasia 2+; RBC 2.87 X 10*6/uL (4.10-5.20); RDW 28.3 % (11.5-14.5); WBC 32.17 X 10*3/uL (4.50-10.00)
[2023-10-25 11:54] LABS: Glucose,Whole Blood 174 mg/dL (70-110)
--- NOTE | 2023-10-25 12:54 | P.CONS ---
History of Present Illness - Reason for Consult Consult date: 10/25/23 rehab recommendations - Chief Complaint debility - History of Present Illness Ms Nicole Magallanes is a 48 y/o female who lives alone, normally she is independent with mobility and ADLs. She works. Plan is to go to mothers home after discharge; 2 story home, can stay on 1st floor, 4 SEBAS. Patient presented to the hospital on 11/08/23 with complaints of worsening SOB for the past 2 weeks. She did not have improvements with at home breathing treatments. She had been recently given abx and steroids outpatient. She became increasingly weak and not feeling well which prompted trip to ED. She also had complaints of chest tightness and anxiety. Her abdomen has increased in size, no history of paracentesis per patient. She was tachypneic, satting 80%, placed on [address] abdomen with patchy airspace consistent with multilobar pneumonia, abdominal ascites. CTA with no PE. Labs with WBC 16.5. hgb 10, MCV 102.4, platelets 188, blood sugar 270, lactic acid 7, AST 113, ALT 68, alk phos 208. She was tested for RSV, flu and covid, all negative. She was started on IV abx and fluids. Patient had an echocardiogram showed severe LV dysfunction with ejection fraction of 30%, There was no evidence of valvular heart disease. She was transferred to the ICU and intubated for AHRF. She had a paracentesis on 10/12/23 with 1800ml fluid aspirated. She required another parecentesis on 10/17, She was able to be extubated. 10/23/23 paracentesis with 4.2 liters removed, was tachy and hypotensive. 10/24/23 her Hgb dropped to 6.7, required transfusion. PM&R consulted for rehab recommendations. As of 10/23/23 OT notes: total assist with UB dressing, LB not demonstrated, max assist with grooming, total assist with toileting and bed mobility. Patient unable to stand or ambulate. 10/24/23 PT: transfers total assist Today she notes may need transfusion. Her voice is soft from being intubated. Also reports occasional MIXON, tired, cough, stomach pain. Denies SOB, other pain complaints. Mother is present today. Review of Systems reviewed, negative unless stated above in HPI Past Medical History Past Medical History: No Reported History Additional Past Medical History / Comment(s): Pt admitted to [facility] on 08/05/19 with acute pancreatitis/htn urgency-she signed out AMA to go home and care for her dog (couldn't find anyone to help). Other hx: IBS, bronchitis, ETOH abuse. History of Any Multi-Drug Resistant Organisms: None Reported Past Surgical History: No Surgical Hx Reported Additional Past Surgical History / Comment(s): EGD, colonoscopies. Past Anesthesia/Blood Transfusion Reactions: No Reported Reaction Past Psychological History: Anxiety, Depression Past Alcohol Use History: Daily, Heavy Past Drug Use History: None Reported - Past Family History Father Additional Family Medical History / Comment(s): Father is from [place]. Mother Family Medical History: No Reported History Additional Family Medical History / Comment(s): Mother is alive with history of asthma, pancreatitis, alchohol abuse. Patient does not have any brothers, sisters, children. Medications and Allergies Home Medications Medication Instructions Recorded Confirmed Type PARoxetine HCL [Paxil] 40 mg PO HS 05/13/18 10/08/23 History ALPRAZolam [Xanax] 1 mg PO HS 08/29/20 10/08/23 History Azithromycin [Zithromax] 500 mg PO DAILY 10/08/23 10/08/23 History Furosemide [Lasix] 20 mg PO HS 10/08/23 10/08/23 History Pantoprazole Sodium [Protonix] 80 mg PO DAILY 10/08/23 10/08/23 History Purezzz 1 tab PO HS 10/08/23 10/08/23 History Spironolactone [Aldactone] 50 mg PO DAILY 10/08/23 10/08/23 History diphenhydrAMINE HCL [Benadryl] 25 mg PO HS 10/08/23 10/08/23 History guaiFENesin [Mucinex] 600 mg PO Q12H 10/08/23 10/08/23 History predniSONE [Deltasone] 40 mg PO DAILY 10/08/23 10/08/23 History Allergies Allergy/AdvReac Type Severity Reaction Status Date / Time No Known Allergies Allergy Verified 10/08/23 22:08 Physical Exam Vitals: Vital Signs Temp Pulse Pulse Resp BP BP Pulse Ox 10/25/23 08:38 106 H 10/25/23 08:22 104 H 99 10/25/23 07:41 97.6 F 102 H 15 112/73 95 10/25/23 02:00 98.0 F 88 16 105/70 100 10/24/23 20:10 108 H 10/24/23 20:00 16 10/24/23 19:57 104 H 10/24/23 19:37 98.6 F 106 H 16 118/79 98 10/24/23 18:00 97.8 F 99 16 126/71 96 10/24/23 15:48 98.1 F 111 H 17 113/68 97 10/24/23 15:36 108 H 10/24/23 15:28 98.0 F 114 H 17 116/72 95 10/24/23 15:26 103 H Intake and Output 10/24/23 10/25/23 10/25/23 22:59 06:59 14:59 Intake Total 430 240 Balance 430 240 Intake: Oral 120 240 Blood Product 310 Rc As-1 Unit 310 [id number] Other: Voiding Method Diaper Diaper Incontinent # Voids 2 3 # Bowel Movements 1 2 Weight 37 kg 35 kg General: WDWN, female, NAD Head: Normocephalic, atraumatic. Eyes: Symmetric Ears: Symmetric. Hearing within normal limits. Mouth: Clear. Neck: Supple. Cardiac: Regular rate. Calves supple, non tender, + LE edema Lungs: Breathing comfortably on RA. Chest symmetric. Abdomen: Soft, tender, + ascites Extremities: Arthritic changes consistent with age. Neurological: Alert and oriented x 4. Speech is clear and fluent without paraphasic errors, but dysphonia Cranial nerves: CN II-XII: intact. Finger to nose bilaterally with dysmetria, unable to do heel to booth Sensation: Intact and symmetrical limbs. Musculoskeletal: ROM WFL EXCEPT: AROM of LE decreased, slight PF contracture MMT UE Sh Abd EE EF FABD WE HG Right 3+ 4- 4- 4- 4- 4- Left 3+ 4- 4- 4- 4- 4- MMT LE HF KE DF EHL Right 1-2/5 1-2/5 1-2/5 1-2/5 Left 1-2/5 1-2/5 1-2/5 1-2/5 Reflexes Biceps Triceps Brachioradialis Patella Achilles Babinski Hoffmans Right 2 2 2 1 Left 2 2 2 1 Skin: Skin intact where visible to head, neck, and bilateral upper and lower extremities Psych: Calm, cooperative Results CBC & Chem 7: 10/25/23 06:57 10/25/23 06:57 Labs: Abnormal Lab Results - Last 24 Hours (Table) 10/24/23 10/24/23 10/25/23 Range/Units 12:15 16:54 00:52 WBC (4.50-10.00) X 10*3/uL RBC (4.10-5.20) X 10*6/uL Hgb (12.0-15.0) g/dL Hct (37.2-46.3) % MCV (80.0-97.0) FL MCH (27.0-32.0) pg RDW (11.5-14.5) % Plt Count (140-440) X 10*3/uL MPV (9.5-12.2) FL Immature Gran # (0.00-0.04) X 10*3/uL Neutrophils # (1.80-7.70) X 10*3/uL Monocytes # (0.20-1.00) X 10*3/uL Eosinophils # (0.04-0.35) X 10*3/uL NRBC/100 WBC Diff (0.00-0.01) X 10*3/uL Polychromasia Anisocytosis (manual) Macrocytosis (manual) Sodium (135-145) mmol/L Potassium 3.1 L (3.5-5.1) mmol/L Chloride (96-109) mmol/L Anion Gap (4.00-12.00) mmol/L BUN/Creatinine Ratio (12.00-20.00) Ratio Glucose (70-110) mg/dL POC Glucose (mg/dL) 175 H (70-110) mg/dL Calcium (8.7-10.3) mg/dL Total Bilirubin (0.3-1.2) mg/dL Conjugated Bilirubin (0.20-0.40) mg/dL Unconjugated Bilirubin (0.20-1.00) mg/dL AST (13-35) U/L ALT (8-44) U/L Albumin (3.8-4.9) g/dL Globulin (1.6-3.3) g/dL Albumin/Globulin Ratio (1.60-3.17) Ratio Crossmatch See Detail 10/25/23 10/25/23 10/25/23 Range/Units 06:57 06:57 07:03 WBC 32.17 H (4.50-10.00) X 10*3/uL RBC 2.87 L (4.10-5.20) X 10*6/uL Hgb 9.4 L (12.0-15.0) g/dL Hct 28.8 L (37.2-46.3) % MCV 100.3 H (80.0-97.0) FL MCH 32.8 H (27.0-32.0) pg RDW 28.3 H (11.5-14.5) % Plt Count 139 L (140-440) X 10*3/uL MPV 13.3 H (9.5-12.2) FL Immature Gran # 0.32 H (0.00-0.04) X 10*3/uL Neutrophils # 28.60 H (1.80-7.70) X 10*3/uL Monocytes # 1.72 H (0.20-1.00) X 10*3/uL Eosinophils # 0 L (0.04-0.35) X 10*3/uL NRBC/100 WBC Diff 0.06 H (0.00-0.01) X 10*3/uL Polychromasia 2+ A Anisocytosis (manual) 2+ A Macrocytosis (manual) 2+ A Sodium 129 L (135-145) mmol/L Potassium (3.5-5.1) mmol/L Chloride 91 L (96-109) mmol/L Anion Gap 12.10 H (4.00-12.00) mmol/L BUN/Creatinine Ratio 43.83 H (12.00-20.00) Ratio Glucose 42 A* (70-110) mg/dL POC Glucose (mg/dL) 53 L (70-110) mg/dL Calcium 8.4 L (8.7-10.3) mg/dL Total Bilirubin 5.6 H (0.3-1.2) mg/dL Conjugated Bilirubin 3.18 H (0.20-0.40) mg/dL Unconjugated Bilirubin 2.42 H (0.20-1.00) mg/dL AST 69 H (13-35) U/L ALT 78 H (8-44) U/L Albumin 2.7 L (3.8-4.9) g/dL Globulin 3.7 H (1.6-3.3) g/dL Albumin/Globulin Ratio 0.73 L (1.60-3.17) Ratio Crossmatch 10/25/23 Range/Units 11:51 WBC (4.50-10.00) X 10*3/uL RBC (4.10-5.20) X 10*6/uL Hgb (12.0-15.0) g/dL Hct (37.2-46.3) % MCV (80.0-97.0) FL MCH (27.0-32.0) pg RDW (11.5-14.5) % Plt Count (140-440) X 10*3/uL MPV (9.5-12.2) FL Immature Gran # (0.00-0.04) X 10*3/uL Neutrophils # (1.80-7.70) X 10*3/uL Monocytes # (0.20-1.00) X 10*3/uL Eosinophils # (0.04-0.35) X 10*3/uL NRBC/100 WBC Diff (0.00-0.01) X 10*3/uL Polychromasia Anisocytosis (manual) Macrocytosis (manual) Sodium (135-145) mmol/L Potassium (3.5-5.1) mmol/L Chloride (96-109) mmol/L Anion Gap (4.00-12.00) mmol/L BUN/Creatinine Ratio (12.00-20.00) Ratio Glucose (70-110) mg/dL POC Glucose (mg/dL) 174 H (70-110) mg/dL Calcium (8.7-10.3) mg/dL Total Bilirubin (0.3-1.2) mg/dL Conjugated Bilirubin (0.20-0.40) mg/dL Unconjugated Bilirubin (0.20-1.00) mg/dL AST (13-35) U/L ALT (8-44) U/L Albumin (3.8-4.9) g/dL Globulin (1.6-3.3) g/dL Albumin/Globulin Ratio (1.60-3.17) Ratio Crossmatch Assessment and Plan Assessment: # 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 # Diet- per EMR # Skin/wound: Skin/Wound care to follow as needed # Pain Management none # DVT Prophylaxis: Lovenox # Your medical dx and mgt Goals: Modified Independent mobility and ADLS both basic and advanced; increased functional mobility/strength; increased balance, safety, endurance. Improvement in medical issues through your care. Barriers: endurance, respiratory status, cardiac function Discharge recommendation:Patient is performing below baseline level of function. Patient is more appropriate for a slower paced rehab program such as [facility] for continued rehab and she will not be able to tolerated 3 hrs of therapy a day at this time. Will continue and follow, reassessing as improves medically. Recommendations discussed with patient and her mother. Patient seen and examined in collaboration with Dr. Nicole, note remotely prepped by Kyung Romero PA-C Thank you for consulting our services.
--- NOTE | 2023-10-25 14:49 | P.PN ---
Subjective Progress Note Date: 10/25/23 On 10/23/2023, the patient is being seen for a follow-up. The patient is known to have liver cirrhosis and chronic pancreatitis. The patient is a recovering alcoholic and she quit drinking approximately 5 years ago. The patient also has history of smoking, chronic anxiety and depression and acid reflux. The patient presented to to the hospital because of multilobar pneumonia and hypoxic respiratory failure. The patient had bilateral patchy airspace disease. The patient was treated in the intensive care unit. During the course of her ICU stay, the patient developed also worsening pulmonary edema in addition to underlying pneumonia. The patient had to be intubated and placed on mechanical ventilator. Note that she also has CHF with LV dysfunction and ejection fraction of 30%. No significant valvular abnormalities. She was treated with IV Zosyn and she was also placed on diuretics. The viral panel was negative. Her proBNP level was above 2000. The procalcitonin level was at 0.6. The patient remains on a mechanical ventilator and she was gradually weaned off the pressors as the patient required pressors to treat her sepsis. She was ultimately extubated on 09/18/2023 and currently she is on the medical floor maintained on 2 L of oxygen by nasal cannula. The most recent chest x-ray was done on 10/20/2023 that showed right middle lobe and left lower lobe airspace disease with hazy appearance of the lungs compatible with pneumonia. The patient also has abdominal distention and ascites. Ultrasound the abdomen that was done showed moderate degree of ascites and the patient underwent a paracentesis today with a total of 4.2 L of fluid removed. The patient remains on DuoNeb nebulized treatments [id number]. The patient is also on Lasix 40 mg IV every 12 hours. The patient completed her antibiotic course. Sputum culture from 10/12/2022 was positive for Marleni. The patient is white cell count of 29 with a hemoglobin 7.6 and a platelet count of 98. Sodium is at 127, BUN is at 30 creatinine 0.5 and a potassium level of 3.8. On today's evaluation after 02/2024, the patient sitting up on the chair. No significant respiratory distress and the patient is currently on room air oxygen. He is on Lasix 40 mg IV every 12 hours. The patient is in negative fluid balanceAnd the patient had a repeat chest x-ray that showed improving and then consistent changes bilaterally and resolving pulm vascular congestion. Also, the bibasilar pulm infiltrates also improved. The patient has no specific complaints. The white cell count is still elevated at 28 and this needs to be monitored. Hemoglobin has dropped down to 6.7 and the platelet count is at 120. No evidence of any GI bleeding at this point in time. Sodium levels at 125, BUN is at 29 with a creatinine of 0.6 and a potassium level at 3.4. The patient has no signs of encephalopathy. She is communicating. Denies having any chest pain. No nausea or vomiting or emesis at this point in time. She remains on Lovenox 40 mg subcu for DVT prophylaxis. She remains also on IV Solu-Medrol which will be discontinued today. On 10/25/2023, the patient is being seen for a follow-up. She is resting comfortably in bed. As noted yesterday, the patient had a drop in hemoglobin at 6.7 yesterday and the patient was given a unit of packed RBC. Subsequent hemoglobin came back To 9.4. However, it was noted that the patient was having some melanotic stool today and there is a concern for an ongoing GI bleeding. The white cell count today is elevated at 32 and a platelet count is 839. No hemodynamic instability. BUN is at 26 with a creatinine of 0.6. Sodium levels at 129. The patient on Lovenox for DVT prophylaxis. The patient remains on IV Lasix. The patient is also on IV Solu-Medrol. I took the opportunity to stop the Lasix and the Lovenox. I also suggested to discontinue the IV Solu-Medrol as the patient has no signs of bronchospasm or wheezing. The patient is currently on room air oxygen. She is slightly tachycardic and she is hemodynamically stable. The patient is going to be transferred to a monitored bed regarding the possibility of GI bleeding. Her current bilirubin is at 5.6 with a AST of 69 ALT of 78 and total protein is at 6.4 with an albumin of 2.7. She is lethargic and arousable and she is communicating. No hematemesis. Objective - Vital Signs Vital signs: Vital Signs Temp 98.3 F 10/25/23 13:04 Pulse 120 H 10/25/23 13:04 Resp 17 10/25/23 13:04 BP 105/69 10/25/23 13:04 Pulse Ox 94 L 10/25/23 13:04 FiO2 50 10/18/23 14:10 Intake & Output 10/24/23 10/25/23 10/25/23 18:59 06:59 18:59 Intake Total 310 360 Balance 310 360 Weight 37 kg 35 kg Intake: Oral 360 Blood Product 310 Rc As-1 Unit 310 [id number] Other: Voiding Method Diaper Diaper Diaper External Catheter Incontinent # Voids 3 # Bowel Movements 2 ABP, PAP, CO, CI - Last Documented Arterial Blood Pressure 111/50 - Exam GENERAL EXAM: Alert, pleasant 48-year-old female, on room air oxygen, resting in bed, in no apparent distress. The patient remains jaundiced, and the patient is currently jaundiced, very much cachectic and weak with a body mass index of 14.1. HEAD: Normocephalic. EYES: Normal reaction of pupils, equal size. NOSE: Clear with pink turbinates. THROAT: No erythema or exudates. NECK: No masses, no JVD. CHEST: No chest wall deformity. LUNGS: Equal air entry with no crackles, wheeze, rhonchi or dullness. CVS: S1 and S2 normal with no audible murmur, regular rhythm. ABDOMEN: Edmar distended, positive fluid wave, normal bowel sounds, no guarding or rigidity. SPINE: No scoliosis or deformity SKIN: No rashes CENTRAL NERVOUS SYSTEM: No focal deficits, tone is normal in all 4 extremities. EXTREMITIES: There is 1+ peripheral edema. No clubbing, no cyanosis. Peripheral pulses are intact. - Labs CBC & Chem 7: 10/25/23 06:57 10/25/23 06:57 Labs: Abnormal Lab Results - Last 24 Hours (Table) 10/24/23 10/24/23 10/25/23 Range/Units 12:15 16:54 00:52 WBC (4.50-10.00) X 10*3/uL RBC (4.10-5.20) X 10*6/uL Hgb (12.0-15.0) g/dL Hct (37.2-46.3) % MCV (80.0-97.0) FL MCH (27.0-32.0) pg RDW (11.5-14.5) % Plt Count (140-440) X 10*3/uL MPV (9.5-12.2) FL Immature Gran # (0.00-0.04) X 10*3/uL Neutrophils # (1.80-7.70) X 10*3/uL Monocytes # (0.20-1.00) X 10*3/uL Eosinophils # (0.04-0.35) X 10*3/uL NRBC/100 WBC Diff (0.00-0.01) X 10*3/uL Polychromasia Anisocytosis (manual) Macrocytosis (manual) Sodium (135-145) mmol/L Potassium 3.1 L (3.5-5.1) mmol/L Chloride (96-109) mmol/L Anion Gap (4.00-12.00) mmol/L BUN/Creatinine Ratio (12.00-20.00) Ratio Glucose (70-110) mg/dL POC Glucose (mg/dL) 175 H (70-110) mg/dL Calcium (8.7-10.3) mg/dL Total Bilirubin (0.3-1.2) mg/dL Conjugated Bilirubin (0.20-0.40) mg/dL Unconjugated Bilirubin (0.20-1.00) mg/dL AST (13-35) U/L ALT (8-44) U/L Albumin (3.8-4.9) g/dL Globulin (1.6-3.3) g/dL Albumin/Globulin Ratio (1.60-3.17) Ratio Crossmatch See Detail 10/25/23 10/25/23 10/25/23 Range/Units 06:57 06:57 07:03 WBC 32.17 H (4.50-10.00) X 10*3/uL RBC 2.87 L (4.10-5.20) X 10*6/uL Hgb 9.4 L (12.0-15.0) g/dL Hct 28.8 L (37.2-46.3) % MCV 100.3 H (80.0-97.0) FL MCH 32.8 H (27.0-32.0) pg RDW 28.3 H (11.5-14.5) % Plt Count 139 L (140-440) X 10*3/uL MPV 13.3 H (9.5-12.2) FL Immature Gran # 0.32 H (0.00-0.04) X 10*3/uL Neutrophils # 28.60 H (1.80-7.70) X 10*3/uL Monocytes # 1.72 H (0.20-1.00) X 10*3/uL Eosinophils # 0 L (0.04-0.35) X 10*3/uL NRBC/100 WBC Diff 0.06 H (0.00-0.01) X 10*3/uL Polychromasia 2+ A Anisocytosis (manual) 2+ A Macrocytosis (manual) 2+ A Sodium 129 L (135-145) mmol/L Potassium (3.5-5.1) mmol/L Chloride 91 L (96-109) mmol/L Anion Gap 12.10 H (4.00-12.00) mmol/L BUN/Creatinine Ratio 43.83 H (12.00-20.00) Ratio Glucose 42 A* (70-110) mg/dL POC Glucose (mg/dL) 53 L (70-110) mg/dL Calcium 8.4 L (8.7-10.3) mg/dL Total Bilirubin 5.6 H (0.3-1.2) mg/dL Conjugated Bilirubin 3.18 H (0.20-0.40) mg/dL Unconjugated Bilirubin 2.42 H (0.20-1.00) mg/dL AST 69 H (13-35) U/L ALT 78 H (8-44) U/L Albumin 2.7 L (3.8-4.9) g/dL Globulin 3.7 H (1.6-3.3) g/dL Albumin/Globulin Ratio 0.73 L (1.60-3.17) Ratio Crossmatch 10/25/23 Range/Units 11:51 WBC (4.50-10.00) X 10*3/uL RBC (4.10-5.20) X 10*6/uL Hgb (12.0-15.0) g/dL Hct (37.2-46.3) % MCV (80.0-97.0) FL MCH (27.0-32.0) pg RDW (11.5-14.5) % Plt Count (140-440) X 10*3/uL MPV (9.5-12.2) FL Immature Gran # (0.00-0.04) X 10*3/uL Neutrophils # (1.80-7.70) X 10*3/uL Monocytes # (0.20-1.00) X 10*3/uL Eosinophils # (0.04-0.35) X 10*3/uL NRBC/100 WBC Diff (0.00-0.01) X 10*3/uL Polychromasia Anisocytosis (manual) Macrocytosis (manual) Sodium (135-145) mmol/L Potassium (3.5-5.1) mmol/L Chloride (96-109) mmol/L Anion Gap (4.00-12.00) mmol/L BUN/Creatinine Ratio (12.00-20.00) Ratio Glucose (70-110) mg/dL POC Glucose (mg/dL) 174 H (70-110) mg/dL Calcium (8.7-10.3) mg/dL Total Bilirubin (0.3-1.2) mg/dL Conjugated Bilirubin (0.20-0.40) mg/dL Unconjugated Bilirubin (0.20-1.00) mg/dL AST (13-35) U/L ALT (8-44) U/L Albumin (3.8-4.9) g/dL Globulin (1.6-3.3) g/dL Albumin/Globulin Ratio (1.60-3.17) Ratio Crossmatch Assessment and Plan Plan: Acute hypoxic respiratory failure secondary to acute bilateral multilobar pneumo abiodun as well as some fluid overload/CHF, status post intubation and mechanical ventilation on October 10, 2023. S/P successful extubation on October 18, 2023. The patient remains extubated on room air oxygen. Follow-up chest x-ray from today shows improvement in the bibasilar pulm infiltrates and the pulmonary vascular congestion. The patient is responding nicely to diuretics. The patient is currently on room air oxygen. Acute pulmonary edema, cardiogenic in origin, with an ejection fraction of 20%, patient has been adequately diuresed with subsequent improvement in the chest x- ray and oxygenation. Acute exacerbation of chronic obstructive pulmonary disease secondary to above Ascites, status post paracentesis abdominis, underwent paracentesis on 10/23/2023 with a total of 4.2 L of ascitic fluid being drained. Noted the patient during the course of her illness. Also another paracentesis done 10/17/2023. Chronic and ongoing tobacco dependence History of heavy alcohol abuse however quit 5 years ago History of cirrhosis secondary to above History of chronic pancreatitis secondary to above History of anxiety/depression Jaundice to the bilirubin level of 3.0 Profound motor weakness, generalized secondary to above-mentioned comorbidities Chronic hyponatremia related to liver cirrhosis Diabetes mellitus secondary to above maintained on Levemir insulin 12 units daily along with sliding scale coverage Acute on top of chronic anemia hemoglobin is dropped down to 6.7. Watch for any signs of GI bleeding. The patient did have a bout of bloody melanotic stool this morning. The patient was given a unit of packed RBC yesterday with subsequent hemoglobin today is at 9.4. Chronic thrombocytopenia related to liver disease, platelet count improved and currently is up to 120 Plan: There is an obvious concern for an underlying GI bleeding. Continue Protonix 80 mg IV every 24 hours. Monitor blood pressure and hemodynamics Stop Lovenox Stop IV Lasix Stop IV Solu-Medrol Monitor hemoglobin Watch for any further signs of GI bleeding and transfer this patient to monitored bed Consult GI services regarding GI bleeding. Will continue to follow.
[2023-10-25 15:13] LABS: Anisocytosis Marked; HCT 27.4 % (34.0-46.0); HGB 8.9 gm/dL (11.4-16.0); Hypochromasia Moderate; MCH 34.1 pg (25.0-35.0); MCHC 32.5 g/dL (31.0-37.0); MCV 104.9 fL (80.0-100.0); Macrocytosis Marked; Mean Platelet Volume 9.7; Platelet Count 109 k/uL (150-450); Poikilocytosis Slight; RBC 2.61 m/uL (3.80-5.40); RDW 24.8 % (11.5-15.5); WBC 36.5 k/uL (3.8-10.6)
[2023-10-25 15:49] LABS: Anisocytosis (M) Present; Hypochromasia (M) Present; Lymphocytes # (M) 0.73 k/uL (1.0-4.8); Neutrophils # (M) 34.68 k/uL (1.3-7.7); Neutrophils % (M) 95 %; Nucleated Red Blood Cells 0 /100 WBC (0-0); Polychromasia Present; Total Cells Counted 100
[2023-10-25 17:28] LABS: Glucose,Whole Blood 113 mg/dL (70-110)
--- NOTE | 2023-10-25 18:39 | P.PN ---
Subjective Patient is a 48-year-old female with a past medical history of severe alcohol abuse, quit 5 years ago, alcoholic liver cirrhosis and is on follow-up with her duco polisher at [facility], IBS, anxiety/depression and presents to ER with complaints of worsening shortness of breath. Patient states that she has been having shortness of breath for the past week and a half and did get worse in the last few days. Patient tried using her breathing treatments at home but did not get improvement. Patient was recently given antibiotics and prednisone by her physician. She has been increasingly weak and not feeling well. Patient presented to ER for evaluation. He was also complaining of cough without any sputum production. Also complaining of chest tightness and anxiety. Denies any leg swelling. No nausea or vomiting. Patient is also having increased abdominal girth. No prior history of paracentesis as per patient. Denies any fever at home. On admission patient was tachycardic and tachypneic and pulse ox 80% on room air. Currently requiring 8 L of oxygen via nasal cannula. CT of the abdomen pelvis showed patchy bilateral airspace consolidation consistent with multilobar pneumonia. Hepatic steatosis, abdominal ascites. Wa ll thickening of small bowel correlate for mild enteritis versus spontaneous bacterial peritonitis. CTA chest showed no PE. Patchy bilateral airspace consolidation consistent with multilobar pneumonia. Chest x-ray showed similar multifocal airspace opacities. Laboratory data showed WBC 16.5 hemoglobin 10.0 MCV 102.4 and platelets 188 and neutrophils 14.4 INR 1.7, D-dimer 2.8 Sodium 132 potassium 3.7 chloride 95 bicarbonate 24 BUN 18 and creatinine 0.84 and blood sugar 270 and lactic acid 7.0 on admission, calcium 8.1, total bilirubin level is 4.6 AST 113 ALT 68 and alk phos 208 Troponin 0.012 and proBNP 2040 and albumin 3.0 Influenza A, B, RSV and COVID-19 PCR not detected. 10/10/2023 Patient was transferred to MICU. Overnight patient's respiratory status worsened due to multifocal pneumonia and also patient is receiving fluids at 100 cc/h due to sepsis. Patient was intubated and is on assist-control. Patient is currently requiring pressor support. Chest x-ray this morning showed severe bilateral pulmonary infiltration which has worsened. Was given IV Lasix. 2D echocardiogram showed dilated LV and severe LV systolic dysfunction. Ejection fraction 30 to 35%. Laboratory showed WBC worsened to 26.6 hemoglobin 10.3 and platelets 190 Sodium 139 potassium 3.6 chloride 108 bicarb is 20 BUN 15 and creatinine 0.64 blood sugar 206 and A1c 6.8 lactic acid 5.4 this morning. Liver enzymes are elevated. Cardiology and pulmonary is on board. Patient is being continued on antibiotics changed to Zosyn. Procalcitonin level is elevated at 0.61. 10/11/2023 Patient is in the MICU. Intubated and sedated. On mechanical ventilator. Patient is also requiring pressor support with Levophed and also on dobutamine drip. Urine output remains low. Patient has been afebrile. Nutrition via NG tube. Patient was also started on IV hydration with normal saline at 75 cc/h. Chest x-ray showed multifocal airspace opacities are not significantly changed. Support tubes and proper positioning. Patient remains on antibiotics in the form of Zosyn. 2D echocardiogram showed left ventricular ejection fraction 30 to 35%. Mild right ventricular dilatation. Trace pericardial effusion and pleural effusion was identified. Laboratory data showed WBC 24.9 hemoglobin 9.6 and platelets 187 Sodium 137 potassium 4.2 chloride 102 bicarb is 26 BUN 25 and creatinine 1.1 and blood sugar 264. Patient is scheduled for paracentesis tomorrow. Blood cultures negative so far. Cardiology and pulmonary is on board. 10/12/2023 Patient is in the MICU. Remains intubated and sedated. On assist-control with respiratory of 20 tidal volume 350 and FiO2 40% and PEEP of 10. Continue to be on vasopressin and norepinephrine. Patient was also started on IV hydration with normal saline at 75 cc/h. Urine output is marginal. Patient remains on antibiotics Zosyn. Repeat chest x-ray this morning showed similar multifocal airspace opacities. Patient was given a dose of IV Lasix. Stable support tubes. Laboratory data showed WBC 24.6 hemoglobin 9.1 and platelets 144 BUN 40 and creatinine 1.09 and blood sugar is elevated at 312. Levemir dose increased to 12 units twice daily and continue with insulin sliding scale. Cardiology and critical care team is on board.Patient is scheduled to go for paracentesis today. 10/13/2023 Patient remains in the MICU. On assist-control with FiO2 35% and PEEP of 10. Tidal volume 350. Currently sedation is off. Chest x-ray showed stable exam mild pulmonary edema. Patient underwent ultrasound-guided paracentesis with 1800 cc clear straw- colored fluid drained. Pathology and culture is pending. Laboratory data showed WBC 25.4 hemoglobin 8.7 and platelets 127 BUN 49 creatinine 1.03 potassium 4.2 and blood sugar 159. Patient is being current on IV Solu-Medrol 60 mg every 6 hourly and is also on antibiotics, Zosyn. 10/14/2023 Patient is a pleasant 48 years old female who presents with bilateral pneumonia with acute hypoxic respiratory failure requiring intubation and mechanical ventilation. CTA of the chest was negative for PE which is done secondary to high d-dimer, CT of the abdomen showing thickened small bowel loops suspicious for enteritis, patient currently covered with Zosyn ProBNP is elevated 2039, chest x-ray showing mild was for congestion and ejection fraction is 30-35% patient is receiving IV Lasix and She Is Intubated. She Is Also on Salmeterol 60 Mg for Possible Acute COPD Exacerbation. Patient on Insulin Levemir 12 Units Twice Daily She Has Decompensated Liver Cirrhosis Status Post Paracentesis on 10/12 Where 1800 ML of Fluid Aspirated Patient today undergoing sedation holiday with propofol was off since yesterday Patient got agitated and she was placed on Precedex as well as IV morphine with little help so far Discussed with the bedside nurse Patient could not tolerate CPAP earlier, currently continued on mechanical ventilation with P5 and FiO2 of 40% Family at bedside 10/15/2023 Patient remains in the ICU intubated and sedated Over the last 2 days she was undergoing sedation holiday and propofol was stopped Today she was more agitated and she was placed back on a propofol Pulmonary level yesterday was 20 but given her worsening mentation we ordered a repeat ammonia level and KUB for abdomen slightly distended She had paracentesis related to her decompensated liver cirrhosis about 3 days ago with 1800 mL of fluid taken out We going to order a KUB but possible patient will require more paracentesis She received 1 dose of IV Lasix Normal saline 75 mL output 250 mL/h She remains on Zosyn and Solu-Medrol 60 mg Discussed with the bedside nurse 10/16/2023 Patient remains in the ICU intubated and sedated Yesterday after on repeat chest x-ray showing pulmonary congestion IV fluids of normal saline 50 mL was stopped and patient was started on IV Lasix 40 mg every 8 hours Repeat chest x-ray this morning testosterone pulmonary congestion, KUB showing nonobstructive pattern most likely patient has ascites related to her liver cirrhosis. Also patient placed on low-dose Lopressor suffers a percent respiratory blood pressure Metoprolol 25 mg 3 times a day per Edger Technician This she swelling is on board and patient glucose is controlled. 10/17/2023 Patient is from his ICU sedated and intubated. Today propofol was stopped and patient could follow command Weaning trial is attempting and patient was replaced back on before meals mode because of her tachypnea Also patient is planned to undergo paracentesis so between today and tomorrow for her ascites related to her liver cirrhosis. Extremities without obvious on Medrol 40 mg, Zosyn, IV Lasix 40 mg every 8 hours. 10/18/2023 Patient remains intubated and sedated in the ICU with pulmonary/critical care team followed closely. Patient under going sedation holiday for possible extubation She still has leukocytosis of 24,000, hemoglobin 8.6. IV fluids discontinued Currently on Solu-Medrol 40 mg, Zosyn and Lasix 40 mg 3 times a day. 10/19/2023 Patient is status post extubation today. She is awake alert and family at bedside trying to feed her. She developed a large direct well. She is calm pleasant looks little bit tired. Denies any specific symptoms with no chest pain or dyspnea. Abdomen is mildly distended but soft no tenderness. She remains on IV Solu-Medrol 40 mg twice daily, IV Lasix 40 twice daily. She is not an antibiotic I am resuming the care of the patient Patient awake alert looks relaxed and comfortable in bed She is eating her meal with no difficulty Her abdomen mildly distended She status post paracentesis with 4.2 L of fluid taken out She is mildly tachycardic with a heart attack and 106 Blood pressure 95/59 Sodium on the low side to 127 WBCs 20 9K, patient he has history of chronic leukocytosis since 2019 Hemoglobin stable 7.6. Platelet count 104 INR 1.6. Patient remains on IV salmeterol 40 mg and IV Lasix 40 mg 10/24/2023 Patient awake alert, sitting up in chair, looks pleasant Patient denies any specific symptoms, no dyspnea or chest pain or coughing. Abdominal distention is mild, improvement after paracentesis, no urinary symptoms and her bowel movement is formed. No confusion, no abdominal pain or tenderness. Her fluid overload is improving Actually she has mild hypovolemic hyponatremia today with sodium 125. Hemoglobin dropped to 6.7 and she is going to be given 1 unit of blood transfu jono WBC is elevated at 28,000 which is chronic Chest x-ray showing improvement aeration. please refer to the for report She still on office on Medrol 4 mg twice daily and IV Lasix 40 mg twice daily 10/25/2023 Patient awake and alert Denies specific symptoms, to the risks some diet Abdomen mildly distended Patient had severe anemia yesterday at 6.7 received 1 unit of blood transfusion went up to 9.4 this morning her stool was dark suspicious for GI bleed so we repeated hemoglobin was 8.9. Patient blood pressure is stable but mildly tachycardic. Patient IV Lasix was held. I saw Medrol was held as well as IV Lovenox. Patient continued on IV Protonix, iron pills added We'll check for occult blood in the stool Transfer the patient to [facility], stress UNIT for more close monitoring Consult general surgery team Objective - Vital Signs Vital signs: Vital Signs Temp 97.6 F 10/25/23 07:41 Pulse 106 H 10/25/23 08:38 Resp 15 10/25/23 07:41 BP 112/73 10/25/23 07:41 Pulse Ox 99 10/25/23 08:22 FiO2 50 10/18/23 14:10 Intake & Output 10/24/23 10/25/23 10/25/23 18:59 06:59 18:59 Intake Total 310 360 Balance 310 360 Weight 37 kg 35 kg Intake: Oral 360 Blood Product 310 Rc As-1 Unit 310 [id number] Other: Voiding Method Diaper Diaper Diaper External Catheter Incontinent # Voids 3 # Bowel Movements 2 ABP, PAP, CO, CI - Last Documented Arterial Blood Pressure 111/50 - Exam GENERAL: The patient is alert and oriented x3, not in any acute distress. Well developed, well nourished. HEENT: Pupils are round and equally reacting to light. EOMI. No scleral icterus. No conjunctival pallor. Normocephalic, atraumatic. No pharyngeal erythema. No thyromegaly. CARDIOVASCULAR: S1 and S2 present. No murmurs, rubs, or gallops. PULMONARY: Chest is clear to auscultation, no wheezing , no crackles. -ABDOMEN: Soft, nontender, mildly distended, normoactive bowel sounds. No palpable organomegaly. MUSCULOSKELETAL: No joint swelling or deformity. EXTREMITIES: No cyanosis, clubbing, or pedal edema. NEUROLOGICAL: Gross neurological examination did not reveal any focal deficits. SKIN: No rashes. no petechiae. - Labs CBC & Chem 7: 10/25/23 14:46 10/25/23 06:57 Labs: Abnormal Lab Results - Last 24 Hours (Table) 10/24/23 10/24/23 10/25/23 Range/Units 12:15 16:54 00:52 WBC (4.50-10.00) X 10*3/uL RBC (4.10-5.20) X 10*6/uL Hgb (12.0-15.0) g/dL Hct (37.2-46.3) % MCV (80.0-97.0) FL MCH (27.0-32.0) pg RDW (11.5-14.5) % Plt Count (140-440) X 10*3/uL MPV (9.5-12.2) FL Immature Gran # (0.00-0.04) X 10*3/uL Neutrophils # (1.80-7.70) X 10*3/uL Monocytes # (0.20-1.00) X 10*3/uL Eosinophils # (0.04-0.35) X 10*3/uL NRBC/100 WBC Diff (0.00-0.01) X 10*3/uL Polychromasia Anisocytosis (manual) Macrocytosis (manual) Sodium (135-145) mmol/L Potassium 3.1 L (3.5-5.1) mmol/L Chloride (96-109) mmol/L Anion Gap (4.00-12.00) mmol/L BUN/Creatinine Ratio (12.00-20.00) Ratio Glucose (70-110) mg/dL POC Glucose (mg/dL) 175 H (70-110) mg/dL Calcium (8.7-10.3) mg/dL Total Bilirubin (0.3-1.2) mg/dL Conjugated Bilirubin (0.20-0.40) mg/dL Unconjugated Bilirubin (0.20-1.00) mg/dL AST (13-35) U/L ALT (8-44) U/L Albumin (3.8-4.9) g/dL Globulin (1.6-3.3) g/dL Albumin/Globulin Ratio (1.60-3.17) Ratio Crossmatch See Detail 10/25/23 10/25/23 10/25/23 Range/Units 06:57 06:57 07:03 WBC 32.17 H (4.50-10.00) X 10*3/uL RBC 2.87 L (4.10-5.20) X 10*6/uL Hgb 9.4 L (12.0-15.0) g/dL Hct 28.8 L (37.2-46.3) % MCV 100.3 H (80.0-97.0) FL MCH 32.8 H (27.0-32.0) pg RDW 28.3 H (11.5-14.5) % Plt Count 139 L (140-440) X 10*3/uL MPV 13.3 H (9.5-12.2) FL Immature Gran # 0.32 H (0.00-0.04) X 10*3/uL Neutrophils # 28.60 H (1.80-7.70) X 10*3/uL Monocytes # 1.72 H (0.20-1.00) X 10*3/uL Eosinophils # 0 L (0.04-0.35) X 10*3/uL NRBC/100 WBC Diff 0.06 H (0.00-0.01) X 10*3/uL Polychromasia 2+ A Anisocytosis (manual) 2+ A Macrocytosis (manual) 2+ A Sodium 129 L (135-145) mmol/L Potassium (3.5-5.1) mmol/L Chloride 91 L (96-109) mmol/L Anion Gap 12.10 H (4.00-12.00) mmol/L BUN/Creatinine Ratio 43.83 H (12.00-20.00) Ratio Glucose 42 A* (70-110) mg/dL POC Glucose (mg/dL) 53 L (70-110) mg/dL Calcium 8.4 L (8.7-10.3) mg/dL Total Bilirubin 5.6 H (0.3-1.2) mg/dL Conjugated Bilirubin 3.18 H (0.20-0.40) mg/dL Unconjugated Bilirubin 2.42 H (0.20-1.00) mg/dL AST 69 H (13-35) U/L ALT 78 H (8-44) U/L Albumin 2.7 L (3.8-4.9) g/dL Globulin 3.7 H (1.6-3.3) g/dL Albumin/Globulin Ratio 0.73 L (1.60-3.17) Ratio Crossmatch 10/25/23 Range/Units 11:51 WBC (4.50-10.00) X 10*3/uL RBC (4.10-5.20) X 10*6/uL Hgb (12.0-15.0) g/dL Hct (37.2-46.3) % MCV (80.0-97.0) FL MCH (27.0-32.0) pg RDW (11.5-14.5) % Plt Count (140-440) X 10*3/uL MPV (9.5-12.2) FL Immature Gran # (0.00-0.04) X 10*3/uL Neutrophils # (1.80-7.70) X 10*3/uL Monocytes # (0.20-1.00) X 10*3/uL Eosinophils # (0.04-0.35) X 10*3/uL NRBC/100 WBC Diff (0.00-0.01) X 10*3/uL Polychromasia Anisocytosis (manual) Macrocytosis (manual) Sodium (135-145) mmol/L Potassium (3.5-5.1) mmol/L Chloride (96-109) mmol/L Anion Gap (4.00-12.00) mmol/L BUN/Creatinine Ratio (12.00-20.00) Ratio Glucose (70-110) mg/dL POC Glucose (mg/dL) 174 H (70-110) mg/dL Calcium (8.7-10.3) mg/dL Total Bilirubin (0.3-1.2) mg/dL Conjugated Bilirubin (0.20-0.40) mg/dL Unconjugated Bilirubin (0.20-1.00) mg/dL AST (13-35) U/L ALT (8-44) U/L Albumin (3.8-4.9) g/dL Globulin (1.6-3.3) g/dL Albumin/Globulin Ratio (1.60-3.17) Ratio Crossmatch Assessment and Plan Assessment: Significant anemia GI bleed, status post one unit of blood transfusion Acute hypoxic respiratory failure secondary to multifocal pneumonia and pulmonar y edema. Patient is 8 L high flow oxygen--> intubated on mechanical ventilator. Pulmonary edema likely due to cardiogenic with low ejection fraction 30 to 35%. Acute HFrEF with ejection fraction 30 -45% Multifocal pneumonia Sepsis/septic shock secondary to above. off pressor support COPD with acute exacerbation Lactic acidosis 7.0 on admission Alcoholic liver cirrhosis Ascites Patient is status post paracentesis on 10/13/2023. Hepatic steatosis and hyperbilirubinemia and elevated liver enzymes History of severe alcohol abuse. Quit 5 years ago History of chronic pancreatitis Anxiety/depression Plan: Patient is awake and alert and tolerates diet well Discontinue IV Solu-Medrol medical floor No antibiotic, discontinue IV Lasix Transfuse for hemoglobin less than 7.Give 1 unit on 10/24 c/w Lasix 40 mg IV Pulmonary team on the case Surgical team consult for GI bleed (there is no GI coverage this facility) DVT prophylaxis: Discontinue Lovenox subcu passer GI bleed. Continue with SCD GI prophylaxis: IV Protonix Prognosis is guarded.
[2023-10-25] MEDS: FERROUS SULFATE 325 MG TAB PO SCH (20:00)
[2023-10-25 20:09] LABS: Glucose,Whole Blood 238 mg/dL (70-110)
[2023-10-25] MEDS: INSULIN DETEMIR (LEVEMIR) 100 UNIT/ML SYR SQ SCH (20:53)
[2023-10-26 06:29] LABS: Glucose,Whole Blood 149 mg/dL (70-110)
[2023-10-26] MEDS: INSULIN ASPART (NovoLOG) 100 UNIT/ML VIAL SQ SCH ×2 (06:33→16:12)
[2023-10-26 11:31] LABS: ALT 73 U/L (4-34); AST 76 U/L (14-36); African American GFR (CKD) >90 (>60 ml/min/1.73 sqM); Albumin 2.6 g/dL (3.5-5.0); Alkaline Phosphatase 125 U/L (38-126); Anion Gap 5 mmol/L; Blood Urea Nitrogen 26 mg/dL (7-17); Calcium 7.8 mg/dL (8.4-10.2); Carbon Dioxide 25 mmol/L (22-30); Chloride 96 mmol/L (98-107); Glucose 131 mg/dL (74-99); Non-African American GFR(CKD) >90 (>60 ml/min/1.73 sqM); Potassium 3.4 mmol/L (3.5-5.1); Sodium 126 mmol/L (137-145); Total Bilirubin 4.8 mg/dL (0.2-1.3); Total Protein 6.5 g/dL (6.3-8.2)
[2023-10-26 11:33] LABS: Glucose,Whole Blood 177 mg/dL (70-110)
[2023-10-26 11:34] LABS: Anisocytosis Marked; Basophils # (A) 0.1 k/uL (0-0.2); Basophils % (A) 0 %; Eosinophils # (A) 0.1 k/uL (0-0.7); Eosinophils % (A) 0 %; HCT 27.3 % (34.0-46.0); HGB 8.9 gm/dL (11.4-16.0); Hypochromasia Moderate; Lymphocytes # (A) 1.8 k/uL (1.0-4.8); Lymphocytes % (A) 5 %; MCH 34.4 pg (25.0-35.0); MCHC 32.7 g/dL (31.0-37.0); MCV 105.2 fL (80.0-100.0); Macrocytosis Marked; Mean Platelet Volume 10.1; Monocytes # (A) 1.1 k/uL (0-1.0); Monocytes % (A) 3 %; Neutrophils # (A) 33.2 k/uL (1.3-7.7); Neutrophils % (A) 91 %; Platelet Count 119 k/uL (150-450); Poikilocytosis Slight; RBC 2.59 m/uL (3.80-5.40); RDW 24.5 % (11.5-15.5); WBC 36.6 k/uL (3.8-10.6)
[2023-10-26 12:42] LABS: Polychromasia Present
[2023-10-26 12:43] LABS: Hypersegmented Neutrophils Present
--- NOTE | 2023-10-26 13:20 | P.PN ---
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 Patient states that she has been having shortness of breath for the past week and a half and did get worse in the last few days. Patient tried using her breathing treatments at home but did not get improvement. Patient was recently given antibiotics and prednisone by her physician. She has been increasingly weak and not feeling well. Patient presented to ER for evaluation. He was also complaining of cough without any sputum production. Also complaining of chest tightness and anxiety. Denies any leg swelling. No nausea or vomiting. Patient is also having increased abdominal girth. No prior history of paracentesis as per patient. Denies any fever at home. On admission patient was tachycardic and tachypneic and pulse ox 80% on room air. Currently requiring 8 L of oxygen via nasal cannula. CT of the abdomen pelvis showed patchy bilateral airspace consolidation consistent with multilobar pneumonia. Hepatic steatosis, abdominal ascites. Wa ll thickening of small bowel correlate for mild enteritis versus spontaneous bacterial peritonitis. CTA chest showed no PE. Patchy bilateral airspace consolidation consistent with multilobar pneumonia. Chest x-ray showed similar multifocal airspace opacities. Laboratory data showed WBC 16.5 hemoglobin 10.0 MCV 102.4 and platelets 188 and neutrophils 14.4 INR 1.7, D-dimer 2.8 Sodium 132 potassium 3.7 chloride 95 bicarbonate 24 BUN 18 and creatinine 0.84 and blood sugar 270 and lactic acid 7.0 on admission, calcium 8.1, total bilirubin level is 4.6 AST 113 ALT 68 and alk phos 208 Troponin 0.012 and proBNP 2040 and albumin 3.0 Influenza A, B, RSV and COVID-19 PCR not detected. 10/10/2023 Patient was transferred to MICU. Overnight patient's respiratory status worsened due to multifocal pneumonia and also patient is receiving fluids at 100 cc/h due to sepsis. Patient was intubated and is on assist-control. Patient is currently requiring pressor support. Chest x-ray this morning showed severe bilateral pulmonary infiltration which has worsened. Was given IV Lasix. 2D echocardiogram showed dilated LV and severe LV systolic dysfunction. Ejection fraction 30 to 35%. Laboratory showed WBC worsened to 26.6 hemoglobin 10.3 and platelets 190 Sodium 139 potassium 3.6 chloride 108 bicarb is 20 BUN 15 and creatinine 0.64 blood sugar 206 and A1c 6.8 lactic acid 5.4 this morning. Liver enzymes are elevated. Cardiology and pulmonary is on board. Patient is being continued on antibiotics changed to Zosyn. Procalcitonin level is elevated at 0.61. 10/11/2023 Patient is in the MICU. Intubated and sedated. On mechanical ventilator. Patient is also requiring pressor support with Levophed and also on dobutamine drip. Urine output remains low. Patient has been afebrile. Nutrition via NG tube. Patient was also started on IV hydration with normal saline at 75 cc/h. Chest x-ray showed multifocal airspace opacities are not significantly changed. Support tubes and proper positioning. Patient remains on antibiotics in the form of Zosyn. 2D echocardiogram showed left ventricular ejection fraction 30 to 35%. Mild right ventricular dilatation. Trace pericardial effusion and pleural effusion was identified. Laboratory data showed WBC 24.9 hemoglobin 9.6 and platelets 187 Sodium 137 potassium 4.2 chloride 102 bicarb is 26 BUN 25 and creatinine 1.1 and blood sugar 264. Patient is scheduled for paracentesis tomorrow. Blood cultures negative so far. Cardiology and pulmonary is on board. 10/12/2023 Patient is in the MICU. Remains intubated and sedated. On assist-control with respiratory of 20 tidal volume 350 and FiO2 40% and PEEP of 10. Continue to be on vasopressin and norepinephrine. Patient was also started on IV hydration with normal saline at 75 cc/h. Urine output is marginal. Patient remains on antibiotics Zosyn. Repeat chest x-ray this morning showed similar multifocal airspace opacities. Patient was given a dose of IV Lasix. Stable support tubes. Laboratory data showed WBC 24.6 hemoglobin 9.1 and platelets 144 BUN 40 and creatinine 1.09 and blood sugar is elevated at 312. Levemir dose increased to 12 units twice daily and continue with insulin sliding scale. Cardiology and critical care team is on board.Patient is scheduled to go for paracentesis today. 10/13/2023 Patient remains in the MICU. On assist-control with FiO2 35% and PEEP of 10. Tidal volume 350. Currently sedation is off. Chest x-ray showed stable exam mild pulmonary edema. Patient underwent ultrasound-guided paracentesis with 1800 cc clear straw- colored fluid drained. Pathology and culture is pending. Laboratory data showed WBC 25.4 hemoglobin 8.7 and platelets 127 BUN 49 creatinine 1.03 potassium 4.2 and blood sugar 159. Patient is being current on IV Solu-Medrol 60 mg every 6 hourly and is also on antibiotics, Zosyn. 10/14/2023 Patient is a pleasant 48 years old female who presents with bilateral pneumonia with acute hypoxic respiratory failure requiring intubation and mechanical ventilation. CTA of the chest was negative for PE which is done secondary to high d-dimer, CT of the abdomen showing thickened small bowel loops suspicious for enteritis, patient currently covered with Zosyn ProBNP is elevated 2039, chest x-ray showing mild was for congestion and ejection fraction is 30-35% patient is receiving IV Lasix and She Is Intubated. She Is Also on Salmeterol 60 Mg for Possible Acute COPD Exacerbation. Patient on Insulin Levemir 12 Units Twice Daily She Has Decompensated Liver Cirrhosis Status Post Paracentesis on 10/12 Where 1800 ML of Fluid Aspirated Patient today undergoing sedation holiday with propofol was off since yesterday Patient got agitated and she was placed on Precedex as well as IV morphine with little help so far Discussed with the bedside nurse Patient could not tolerate CPAP earlier, currently continued on mechanical ventilation with P5 and FiO2 of 40% Family at bedside 10/15/2023 Patient remains in the ICU intubated and sedated Over the last 2 days she was undergoing sedation holiday and propofol was stopped Today she was more agitated and she was placed back on a propofol Pulmonary level yesterday was 20 but given her worsening mentation we ordered a repeat ammonia level and KUB for abdomen slightly distended She had paracentesis related to her decompensated liver cirrhosis about 3 days ago with 1800 mL of fluid taken out We going to order a KUB but possible patient will require more paracentesis She received 1 dose of IV Lasix Normal saline 75 mL output 250 mL/h She remains on Zosyn and Solu-Medrol 60 mg Discussed with the bedside nurse 10/16/2023 Patient remains in the ICU intubated and sedated Yesterday after on repeat chest x-ray showing pulmonary congestion IV fluids of normal saline 50 mL was stopped and patient was started on IV Lasix 40 mg every 8 hours Repeat chest x-ray this morning testosterone pulmonary congestion, KUB showing nonobstructive pattern most likely patient has ascites related to her liver cirrhosis. Also patient placed on low-dose Lopressor suffers a percent respiratory blood pressure Metoprolol 25 mg 3 times a day per Quality Systems Specialist This she swelling is on board and patient glucose is controlled. 10/17/2023 Patient is from his ICU sedated and intubated. Today propofol was stopped and patient could follow command Weaning trial is attempting and patient was replaced back on before meals mode because of her tachypnea Also patient is planned to undergo paracentesis so between today and tomorrow for her ascites related to her liver cirrhosis. Extremities without obvious on Medrol 40 mg, Zosyn, IV Lasix 40 mg every 8 hours. 10/18/2023 Patient remains intubated and sedated in the ICU with pulmonary/critical care team followed closely. Patient under going sedation holiday for possible extubation She still has leukocytosis of 24,000, hemoglobin 8.6. IV fluids discontinued Currently on Solu-Medrol 40 mg, Zosyn and Lasix 40 mg 3 times a day. 10/19/2023 Patient is status post extubation today. She is awake alert and family at bedside trying to feed her. She developed a large direct well. She is calm pleasant looks little bit tired. Denies any specific symptoms with no chest pain or dyspnea. Abdomen is mildly distended but soft no tenderness. She remains on IV Solu-Medrol 40 mg twice daily, IV Lasix 40 twice daily. She is not an antibiotic I am resuming the care of the patient Patient awake alert looks relaxed and comfortable in bed She is eating her meal with no difficulty Her abdomen mildly distended She status post paracentesis with 4.2 L of fluid taken out She is mildly tachycardic with a heart attack and 106 Blood pressure 95/59 Sodium on the low side to 127 WBCs 20 9K, patient he has history of chronic leukocytosis since 2019 Hemoglobin stable 7.6. Platelet count 104 INR 1.6. Patient remains on IV salmeterol 40 mg and IV Lasix 40 mg 10/24/2023 Patient awake alert, sitting up in chair, looks pleasant Patient denies any specific symptoms, no dyspnea or chest pain or coughing. Abdominal distention is mild, improvement after paracentesis, no urinary symptoms and her bowel movement is formed. No confusion, no abdominal pain or tenderness. Her fluid overload is improving Actually she has mild hypovolemic hyponatremia today with sodium 125. Hemoglobin dropped to 6.7 and she is going to be given 1 unit of blood transfu jono WBC is elevated at 28,000 which is chronic Chest x-ray showing improvement aeration. please refer to the for report She still on office on Medrol 4 mg twice daily and IV Lasix 40 mg twice daily 10/25/2023 Patient awake and alert Denies specific symptoms, to the risks some diet Abdomen mildly distended Patient had severe anemia yesterday at 6.7 received 1 unit of blood transfusion went up to 9.4 this morning her stool was dark suspicious for GI bleed so we repeated hemoglobin was 8.9. Patient blood pressure is stable but mildly tachycardic. Patient IV Lasix was held. I saw Medrol was held as well as IV Lovenox. Patient continued on IV Protonix, iron pills added We'll check for occult blood in the stool Transfer the patient to [facility], stress UNIT for more close monitoring Consult general surgery team 10/26/2023 Patient awake alert, mentation at baseline, she is somewhat whispering. Denies dyspnea. No abdominal pain or tenderness, abdomen mildly distended but soft No evidence of cellulitis, she has some oozing spots from her right thigh. She had 2 bowel movements which are black in color. Sodium 126 from 125 yesterday most likely hypervolemic hyponatremia Yesterday Lasix 40 mg IV twice a day was stopped, and we going to resume Lasix 40 mg by mouth daily. Also we will add Aldactone small dose Hemoglobin stable 8.9, surgery team are planning for further evaluation, and po ssible scope She was on IV Protonix Pressure is up again the umbilicus her NovoLog 3 units up to 5 units with meals Objective - Vital Signs Vital signs: Vital Signs Temp 98 F 10/26/23 12:00 Pulse 112 H 10/26/23 12:00 Resp 16 10/26/23 12:00 BP 120/77 10/26/23 12:00 Pulse Ox 94 L 10/26/23 12:00 FiO2 50 10/18/23 14:10 Intake & Output 10/25/23 10/26/23 10/26/23 18:59 06:59 18:59 Intake Total 180 Output Total 100 Balance 80 Weight 37 kg 37 kg Intake: Oral 180 Output: Stool 100 Other: Voiding Method Diaper Diaper Diaper # Voids 1 # Bowel Movements 1 ABP, PAP, CO, CI - Last Documented Arterial Blood Pressure 111/50 - Exam GENERAL: The patient is alert and oriented x3, not in any acute distress. Well developed, well nourished. HEENT: Pupils are round and equally reacting to light. EOMI. No scleral icterus. No conjunctival pallor. Normocephalic, atraumatic. No pharyngeal erythema. No thyromegaly. CARDIOVASCULAR: S1 and S2 present. No murmurs, rubs, or gallops. PULMONARY: Chest is clear to auscultation, no wheezing , no crackles. -ABDOMEN: Soft, nontender, mildly distended, normoactive bowel sounds. No palpable organomegaly. MUSCULOSKELETAL: No joint swelling or deformity. EXTREMITIES: No cyanosis, clubbing, or pedal edema. NEUROLOGICAL: Gross neurological examination did not reveal any focal deficits. SKIN: No rashes. no petechiae. - Labs CBC & Chem 7: 10/26/23 11:01 10/26/23 11:01 Labs: Abnormal Lab Results - Last 24 Hours (Table) 10/25/23 10/25/23 10/25/23 Range/Units 14:46 16:40 17:27 WBC 36.5 H (3.8-10.6) k/uL RBC 2.61 L (3.80-5.40) m/uL Hgb 8.9 L (11.4-16.0) gm/dL Hct 27.4 L (34.0-46.0) % MCV 104.9 H (80.0-100.0) fL RDW 24.8 H (11.5-15.5) % Plt Count 109 L (150-450) k/uL Neutrophils # (1.3-7.7) k/uL Neutrophils # (Manual) 34.68 H (1.3-7.7) k/uL Lymphocytes # (Manual) 0.73 L (1.0-4.8) k/uL Monocytes # (0-1.0) k/uL Monocytes # (Manual) 1.10 H (0-1.0) k/uL Macrocytosis Marked A Sodium (137-145) mmol/L Potassium (3.5-5.1) mmol/L Chloride (98-107) mmol/L BUN (7-17) mg/dL Creatinine (0.52-1.04) mg/dL Glucose (74-99) mg/dL POC Glucose (mg/dL) 113 H (70-110) mg/dL Calcium (8.4-10.2) mg/dL Total Bilirubin (0.2-1.3) mg/dL AST (14-36) U/L ALT (4-34) U/L Albumin (3.5-5.0) g/dL Stool Occult Blood Positive H (Negative) 10/25/23 10/26/23 10/26/23 Range/Units 20:08 06:21 11:01 WBC 36.6 H (3.8-10.6) k/uL RBC 2.59 L (3.80-5.40) m/uL Hgb 8.9 L (11.4-16.0) gm/dL Hct 27.3 L (34.0-46.0) % MCV 105.2 H (80.0-100.0) fL RDW 24.5 H (11.5-15.5) % Plt Count 119 L (150-450) k/uL Neutrophils # 33.2 H (1.3-7.7) k/uL Neutrophils # (Manual) (1.3-7.7) k/uL Lymphocytes # (Manual) (1.0-4.8) k/uL Monocytes # 1.1 H (0-1.0) k/uL Monocytes # (Manual) (0-1.0) k/uL Macrocytosis Marked A Sodium (137-145) mmol/L Potassium (3.5-5.1) mmol/L Chloride (98-107) mmol/L BUN (7-17) mg/dL Creatinine (0.52-1.04) mg/dL Glucose (74-99) mg/dL POC Glucose (mg/dL) 238 H 149 H (70-110) mg/dL Calcium (8.4-10.2) mg/dL Total Bilirubin (0.2-1.3) mg/dL AST (14-36) U/L ALT (4-34) U/L Albumin (3.5-5.0) g/dL Stool Occult Blood (Negative) 10/26/23 10/26/23 Range/Units 11:01 11:31 WBC (3.8-10.6) k/uL RBC (3.80-5.40) m/uL Hgb (11.4-16.0) gm/dL Hct (34.0-46.0) % MCV (80.0-100.0) fL RDW (11.5-15.5) % Plt Count (150-450) k/uL Neutrophils # (1.3-7.7) k/uL Neutrophils # (Manual) (1.3-7.7) k/uL Lymphocytes # (Manual) (1.0-4.8) k/uL Monocytes # (0-1.0) k/uL Monocytes # (Manual) (0-1.0) k/uL Macrocytosis Sodium 126 L (137-145) mmol/L Potassium 3.4 L (3.5-5.1) mmol/L Chloride 96 L (98-107) mmol/L BUN 26 H (7-17) mg/dL Creatinine 0.49 L (0.52-1.04) mg/dL Glucose 131 H (74-99) mg/dL POC Glucose (mg/dL) 177 H (70-110) mg/dL Calcium 7.8 L (8.4-10.2) mg/dL Total Bilirubin 4.8 H (0.2-1.3) mg/dL AST 76 H (14-36) U/L ALT 73 H (4-34) U/L Albumin 2.6 L (3.5-5.0) g/dL Stool Occult Blood (Negative) Assessment and Plan Assessment: Significant anemia GI bleed, status post one unit of blood transfusion Acute hypoxic respiratory failure secondary to multifocal pneumonia and pulmonary edema. Patient is 8 L high flow oxygen--> intubated on mechanical ventilator. Pulmonary edema likely due to cardiogenic with low ejection fraction 30 to 35%. Acute HFrEF with ejection fraction 30 -45% Multifocal pneumonia Sepsis/septic shock secondary to above. off pressor support COPD with acute exacerbation Lactic acidosis 7.0 on admission Alcoholic liver cirrhosis Ascites Patient is status post paracentesis on 10/13/2023. Hepatic steatosis and hyperbilirubinemia and elevated liver enzymes History of severe alcohol abuse. Quit 5 years ago History of chronic pancreatitis Anxiety/depression Plan: Patient is awake and alert and tolerates diet well Discontinue IV Solu-Medrol medical floor No antibiotic, discontinue IV Lasix Transfuse for hemoglobin less than 7.Give 1 unit on 10/24 c/w Lasix 40 mg IV Pulmonary team on the case Surgical team consult for GI bleed (there is no GI coverage this facility) DVT prophylaxis: Discontinue Lovenox subcu passer GI bleed. Continue with SCD GI prophylaxis: IV Protonix Prognosis is guarded.
--- NOTE | 2023-10-26 13:26 | P.PN ---
Subjective Progress Note Date: 10/26/23 On 10/23/2023, the patient is being seen for a follow-up. The patient is known to have liver cirrhosis and chronic pancreatitis. The patient is a recovering alcoholic and she quit drinking approximately 5 years ago. The patient also has history of smoking, chronic anxiety and depression and acid reflux. The patient presented to to the hospital because of multilobar pneumonia and hypoxic respiratory failure. The patient had bilateral patchy airspace disease. The patient was treated in the intensive care unit. During the course of her ICU stay, the patient developed also worsening pulmonary edema in addition to underlying pneumonia. The patient had to be intubated and placed on mechanical ventilator. Note that she also has CHF with LV dysfunction and ejection fraction of 30%. No significant valvular abnormalities. She was treated with IV Zosyn and she was also placed on diuretics. The viral panel was negative. Her proBNP level was above 2000. The procalcitonin level was at 0.6. The patient remains on a mechanical ventilator and she was gradually weaned off the pressors as the patient required pressors to treat her sepsis. She was ultimately extubated on 09/18/2023 and currently she is on the medical floor maintained on 2 L of oxygen by nasal cannula. The most recent chest x-ray was done on 10/20/2023 that showed right middle lobe and left lower lobe airspace disease with hazy appearance of the lungs compatible with pneumonia. The patient also has abdominal distention and ascites. Ultrasound the abdomen that was done showed moderate degree of ascites and the patient underwent a paracentesis today with a total of 4.2 L of fluid removed. The patient remains on DuoNeb nebulized treatments [id number]. The patient is also on Lasix 40 mg IV every 12 hours. The patient completed her antibiotic course. Sputum culture from 10/12/2022 was positive for Marleni. The patient is white cell count of 29 with a hemoglobin 7.6 and a platelet count of 98. Sodium is at 127, BUN is at 30 creatinine 0.5 and a potassium level of 3.8. On today's evaluation after 02/2024, the patient sitting up on the chair. No significant respiratory distress and the patient is currently on room air oxygen. He is on Lasix 40 mg IV every 12 hours. The patient is in negative fluid balanceAnd the patient had a repeat chest x-ray that showed improving and then consistent changes bilaterally and resolving pulm vascular congestion. Also, the bibasilar pulm infiltrates also improved. The patient has no specific complaints. The white cell count is still elevated at 28 and this needs to be monitored. Hemoglobin has dropped down to 6.7 and the platelet count is at 120. No evidence of any GI bleeding at this point in time. Sodium levels at 125, BUN is at 29 with a creatinine of 0.6 and a potassium level at 3.4. The patient has no signs of encephalopathy. She is communicating. Denies having any chest pain. No nausea or vomiting or emesis at this point in time. She remains on Lovenox 40 mg subcu for DVT prophylaxis. She remains also on IV Solu-Medrol which will be discontinued today. On 10/25/2023, the patient is being seen for a follow-up. She is resting comfortably in bed. As noted yesterday, the patient had a drop in hemoglobin at 6.7 yesterday and the patient was given a unit of packed RBC. Subsequent hemoglobin came back To 9.4. However, it was noted that the patient was having some melanotic stool today and there is a concern for an ongoing GI bleeding. The white cell count today is elevated at 32 and a platelet count is 839. No hemodynamic instability. BUN is at 26 with a creatinine of 0.6. Sodium levels at 129. The patient on Lovenox for DVT prophylaxis. The patient remains on IV Lasix. The patient is also on IV Solu-Medrol. I took the opportunity to stop the Lasix and the Lovenox. I also suggested to discontinue the IV Solu-Medrol as the patient has no signs of bronchospasm or wheezing. The patient is currently on room air oxygen. She is slightly tachycardic and she is hemodynamically stable. The patient is going to be transferred to a monitored bed regarding the possibility of GI bleeding. Her current bilirubin is at 5.6 with a AST of 69 ALT of 78 and total protein is at 6.4 with an albumin of 2.7. She is lethargic and arousable and she is communicating. No hematemesis. On today's evaluation of 10/26/2023, I am seeing the patient for a follow-up. The patient is doing well. No specific complaints. No further witnessed episodes of GI bleeding. The patient got transferred to telemetry unit for a suspicious episode of GI bleed that was mentioned yesterday. The patientHad a follow-up CBC today and the hemoglobin currently is at 8.9 which is essentially stable compared to yesterday. The white cell count remains elevated. The patient's platelet count is also stable at 119. Sodium level was 126 with a potassium level of 3.4 BUN is at 26 with a creatinine of 0.4. The liver function tests are minimally elevated with an AST of 76, ALT of 73 and the most recent bilirubin level was at 3.1. She is resting comfortably in bed and the patient is currently on room air oxygen with a pulse ox of 94%. The patient is tachycardic. She does have abdominal ascites. I discontinued the Lasix yesterday. I also discontinued IV Solu-Medrol. The patient is currently on no specific antibiotic coverage. She was restarted back on a combination of Lasix and Aldactone as of this morning. This was done by the medical team. She is arousable and she is alert. When left unstimulated, she will go back into sleep. She is also on IV Protonix. Objective - Vital Signs Vital signs: Vital Signs Temp 97.9 F 10/26/23 08:00 Pulse 115 H 10/26/23 08:30 Resp 16 10/26/23 08:30 BP 110/66 10/26/23 08:00 Pulse Ox 94 L 10/26/23 08:12 FiO2 50 10/18/23 14:10 Intake & Output 10/25/23 10/26/23 10/26/23 18:59 06:59 18:59 Intake Total 180 Output Total 100 Balance 80 Weight 37 kg Intake: Oral 180 Output: Stool 100 Other: Voiding Method Diaper Diaper Diaper # Voids 1 # Bowel Movements 1 ABP, PAP, CO, CI - Last Documented Arterial Blood Pressure 111/50 - Exam GENERAL EXAM: Alert, pleasant 48-year-old female, on room air oxygen, resting in bed, in no apparent distress. The patient remains jaundiced, and the patient is currently jaundiced, very much cachectic and weak with a body mass index of 14.1. HEAD: Normocephalic. EYES: Normal reaction of pupils, equal size. NOSE: Clear with pink turbinates. THROAT: No erythema or exudates. NECK: No masses, no JVD. CHEST: No chest wall deformity. LUNGS: Equal air entry with no crackles, wheeze, rhonchi or dullness. CVS: S1 and S2 normal with no audible murmur, regular rhythm. ABDOMEN: Edmar distended, positive fluid wave, normal bowel sounds, no guarding or rigidity. SPINE: No scoliosis or deformity SKIN: No rashes CENTRAL NERVOUS SYSTEM: No focal deficits, tone is normal in all 4 extremities. EXTREMITIES: There is 1+ peripheral edema. No clubbing, no cyanosis. Peripheral pulses are intact. - Labs CBC & Chem 7: 10/26/23 11:01 10/26/23 11:01 Labs: Abnormal Lab Results - Last 24 Hours (Table) 10/25/23 10/25/23 10/25/23 Range/Units 06:57 06:57 11:51 WBC 32.17 H (4.50-10.00) X 10*3/uL RBC 2.87 L (4.10-5.20) X 10*6/uL Hgb 9.4 L (12.0-15.0) g/dL Hct 28.8 L (37.2-46.3) % MCV 100.3 H (80.0-97.0) FL MCH 32.8 H (27.0-32.0) pg RDW 28.3 H (11.5-14.5) % Plt Count 139 L (140-440) X 10*3/uL MPV 13.3 H (9.5-12.2) FL Immature Gran # 0.32 H (0.00-0.04) X 10*3/uL Neutrophils # 28.60 H (1.80-7.70) X 10*3/uL Neutrophils # (Manual) (1.3-7.7) k/uL Lymphocytes # (Manual) (1.0-4.8) k/uL Monocytes # 1.72 H (0.20-1.00) X 10*3/uL Monocytes # (Manual) (0-1.0) k/uL Eosinophils # 0 L (0.04-0.35) X 10*3/uL NRBC/100 WBC Diff 0.06 H (0.00-0.01) X 10*3/uL Polychromasia 2+ A Anisocytosis (manual) 2+ A Macrocytosis Macrocytosis (manual) 2+ A Sodium 129 L (135-145) mmol/L Chloride 91 L (96-109) mmol/L Anion Gap 12.10 H (4.00-12.00) mmol/L BUN/Creatinine Ratio 43.83 H (12.00-20.00) Ratio Glucose 42 A* (70-110) mg/dL POC Glucose (mg/dL) 174 H (70-110) mg/dL Calcium 8.4 L (8.7-10.3) mg/dL Total Bilirubin 5.6 H (0.3-1.2) mg/dL Conjugated Bilirubin 3.18 H (0.20-0.40) mg/dL Unconjugated Bilirubin 2.42 H (0.20-1.00) mg/dL AST 69 H (13-35) U/L ALT 78 H (8-44) U/L Albumin 2.7 L (3.8-4.9) g/dL Globulin 3.7 H (1.6-3.3) g/dL Albumin/Globulin Ratio 0.73 L (1.60-3.17) Ratio Stool Occult Blood (Negative) 10/25/23 10/25/23 10/25/23 Range/Units 14:46 16:40 17:27 WBC 36.5 H (4.50-10.00) X 10*3/uL RBC 2.61 L (4.10-5.20) X 10*6/uL Hgb 8.9 L (12.0-15.0) g/dL Hct 27.4 L (37.2-46.3) % MCV 104.9 H (80.0-97.0) FL MCH (27.0-32.0) pg RDW 24.8 H (11.5-14.5) % Plt Count 109 L (140-440) X 10*3/uL MPV (9.5-12.2) FL Immature Gran # (0.00-0.04) X 10*3/uL Neutrophils # (1.80-7.70) X 10*3/uL Neutrophils # (Manual) 34.68 H (1.3-7.7) k/uL Lymphocytes # (Manual) 0.73 L (1.0-4.8) k/uL Monocytes # (0.20-1.00) X 10*3/uL Monocytes # (Manual) 1.10 H (0-1.0) k/uL Eosinophils # (0.04-0.35) X 10*3/uL NRBC/100 WBC Diff (0.00-0.01) X 10*3/uL Polychromasia Anisocytosis (manual) Macrocytosis Marked A Macrocytosis (manual) Sodium (135-145) mmol/L Chloride (96-109) mmol/L Anion Gap (4.00-12.00) mmol/L BUN/Creatinine Ratio (12.00-20.00) Ratio Glucose (70-110) mg/dL POC Glucose (mg/dL) 113 H (70-110) mg/dL Calcium (8.7-10.3) mg/dL Total Bilirubin (0.3-1.2) mg/dL Conjugated Bilirubin (0.20-0.40) mg/dL Unconjugated Bilirubin (0.20-1.00) mg/dL AST (13-35) U/L ALT (8-44) U/L Albumin (3.8-4.9) g/dL Globulin (1.6-3.3) g/dL Albumin/Globulin Ratio (1.60-3.17) Ratio Stool Occult Blood Positive H (Negative) 10/25/23 10/26/23 Range/Units 20:08 06:21 WBC (4.50-10.00) X 10*3/uL RBC (4.10-5.20) X 10*6/uL Hgb (12.0-15.0) g/dL Hct (37.2-46.3) % MCV (80.0-97.0) FL MCH (27.0-32.0) pg RDW (11.5-14.5) % Plt Count (140-440) X 10*3/uL MPV (9.5-12.2) FL Immature Gran # (0.00-0.04) X 10*3/uL Neutrophils # (1.80-7.70) X 10*3/uL Neutrophils # (Manual) (1.3-7.7) k/uL Lymphocytes # (Manual) (1.0-4.8) k/uL Monocytes # (0.20-1.00) X 10*3/uL Monocytes # (Manual) (0-1.0) k/uL Eosinophils # (0.04-0.35) X 10*3/uL NRBC/100 WBC Diff (0.00-0.01) X 10*3/uL Polychromasia Anisocytosis (manual) Macrocytosis Macrocytosis (manual) Sodium (135-145) mmol/L Chloride (96-109) mmol/L Anion Gap (4.00-12.00) mmol/L BUN/Creatinine Ratio (12.00-20.00) Ratio Glucose (70-110) mg/dL POC Glucose (mg/dL) 238 H 149 H (70-110) mg/dL Calcium (8.7-10.3) mg/dL Total Bilirubin (0.3-1.2) mg/dL Conjugated Bilirubin (0.20-0.40) mg/dL Unconjugated Bilirubin (0.20-1.00) mg/dL AST (13-35) U/L ALT (8-44) U/L Albumin (3.8-4.9) g/dL Globulin (1.6-3.3) g/dL Albumin/Globulin Ratio (1.60-3.17) Ratio Stool Occult Blood (Negative) Assessment and Plan Plan: Acute hypoxic respiratory failure secondary to acute bilateral multilobar pneumonia as well as some fluid overload/CHF, status post intubation and mechanical ventilation on October 10, 2023. S/P successful extubation on October 18, 2023. The patient remains extubated on room air oxygen. Follow-up chest x-ray from today shows improvement in the bibasilar pulm infiltrates and the pulmonary vascular congestion. The patient is responding nicely to diuretics. The patient is currently on room air oxygen. Acute pulmonary edema, cardiogenic in origin, with an ejection fraction of 20%, patient has been adequately diuresed with subsequent improvement in the chest x- ray and oxygenation. Acute exacerbation of chronic obstructive pulmonary disease secondary to above Ascites, status post paracentesis abdominis, underwent paracentesis on 10/23/2023 with a total of 4.2 L of ascitic fluid being drained. Noted the patient during the course of her illness. Also another paracentesis done 10/17/2023. Chronic and ongoing tobacco dependence History of heavy alcohol abuse however quit 5 years ago History of cirrhosis secondary to above History of chronic pancreatitis secondary to above History of anxiety/depression Jaundice to the bilirubin level of 3.0 Profound motor weakness, generalized secondary to above-mentioned comorbidities Chronic hyponatremia related to liver cirrhosis Diabetes mellitus secondary to above maintained on Levemir insulin 10 units daily along with sliding scale coverage Acute on top of chronic anemia hemoglobin is dropped down to 6.7. And the patient's hemoglobin is currently up to 8.9, stable compared to yesterday Chronic thrombocytopenia related to liver disease, platelet count are stable Plan: There is an obvious concern for an underlying GI bleeding. The patient apparently had 2 episodes of black bowel movements yesterday. This was not clearly documented by the nursing staff and the patient's hemoglobin is stable at 8.9. Continue Protonix 80 mg IV every 24 hours. Monitor blood pressure and hemodynamics Stop Lovenox Stop IV Lasix, the patient was restarted on oral Lasix and Aldactone Stop IV Solu-Medrol Monitor the white cell count Patient currently is on no antibiotic coverage Monitor hemoglobin Watch for any further signs of GI bleeding and transfer this patient to monitored bed Consult GI services regarding GI bleeding. Will continue to follow.
[2023-10-26] MEDS: SPIRONOLACTONE 25 MG TAB PO SCH (15:10)
[2023-10-26] MEDS: FUROSEMIDE 40 MG TAB PO SCH (15:11)
[2023-10-26 16:09] LABS: Glucose,Whole Blood 46 mg/dL (70-110)
--- NOTE | 2023-10-26 16:19 | P.PN ---
Subjective Progress Note Date: 10/26/23 CHIEF COMPLAINT: Pneumonia Reason for consult anemia HISTORY OF PRESENT ILLNESS: This is a 48-year-old female with multiple medical problems and prolonged hospitalization. Presented with pneumonia and sepsis and had required to be on mechanical ventilation. Rectal tube was removed yesterday. Patient started to have blood noted in her stools. Patient had possibly both black and bloody stools. Possibly black stools yesterday and some mild red blood today. She denies any abdominal pain. Denies any nausea or vomiting. No prior history of GI bleed. Last colonoscopy was 2 years ago and reported as negative. Patient also has required 3 paracentesis during this admission due to her liver cirrhosis. Hemoglobin 6.7 up to 8.9 after 1 unit of blood. PAST MEDICAL HISTORY: See list. PAST SURGICAL HISTORY: See list. MEDICATIONS: See list. ALLERGIES: See list. SOCIAL HISTORY: No illicit drug use. REVIEW OF SYSTEMS: CONSTITUTIONAL: Denies fever or chills. HEENT: Denies blurred vision, vision changes, or eye pain. Denies hemoptysis ENDOCRINE: Denies heat or cold intolerance. CARDIOVASCULAR: Denies chest pain or pressure. RESPIRATORY: No shortness of breath. GASTROINTESTINAL: Denies abdominal pain. Denies nausea or vomiting. NEURO: Denies history of seizures. PSYCH: No depression or suicidal ideation HEMATOLOGIC: Denies bleeding disorders. LYMPHATIC: The patient denies any lumps and bumps around the neck. GENITOURINARY: Denies any blood in urine or increased urinary frequency. MUSCULOSKELETAL: Denies myalgias. Denies joint swelling. Denies decreased range of motion beyond patients baseline. SKIN: Denies pruitis. Denies rash. PHYSICAL EXAM: VITAL SIGNS: Reviewed GENERAL: Malnourished. No acute distress. HEENT: Extraocular movements grossly intact. Moist buccal mucosa. Head is atraumatic, normocephalic. Hears conversational speech. No nasal drainage. NECK: Supple without lymphadenopathy. CHEST: Non-labored respirations and equal bilateral excursions. CARDIOVASCULAR: Palpable 2+ radial pulses. ABDOMEN: Soft. Mildly distended. Fluid wave present. Nontender MUSCULOSKELETAL: No clubbing or cyanosis. NEUROLOGIC: No focal or lateralizing signs. Cranial nerves II through XII grossly intact. PSYCH: Alert and oriented to person, place and time. SKIN: Jaundiced LABORATORY DATA: WBC 36.6 hemoglobin 6.7 up to 8.9 platelets 119 Sodium 126 potassium 3.4 creatinine 0.49 Stool for occult blood positive Total bilirubin 4.8 AST 76 ALT 73 Albumin 2.6 IMAGING: ASSESSMENT: 1. Acute GI bleed with acute blood loss anemia 2. Pneumonia 3. CHF 4. Respiratory failure requiring mechanical ventilation and extubation 5. Ascites and history of liver cirrhosis status post paracentesis x 3 6. History of heavy alcohol abuse 7. Jaundice 8. Chronic thrombocytopenia 7. Severe protein calorie malnutrition PLAN: -Further recommendations forthcoming per surgeon -Recommend consult to GI service due to patient's liver cirrhosis -Consult dietitian for chronic malnutrition and concerns for refeeding syndrome -Continue to monitor hemoglobin -Continue to monitor for any signs or symptoms of bleeding -Place patient on a clear liquid diet Physician Management Lead note has been reviewed by physician. Signing provider agrees with the documented findings, assessment, and plan of care. Objective - Vital Signs Vital signs: Vital Signs Temp 98 F 10/26/23 12:00 Pulse 112 H 10/26/23 12:00 Resp 16 10/26/23 12:00 BP 120/77 10/26/23 12:00 Pulse Ox 94 L 10/26/23 12:00 FiO2 50 10/18/23 14:10 Intake & Output 10/25/23 10/26/23 10/26/23 18:59 06:59 18:59 Intake Total 180 Output Total 100 Balance 80 Weight 37 kg 37 kg Intake: Oral 180 Output: Stool 100 Other: Voiding Method Diaper Diaper Diaper # Voids 1 # Bowel Movements 1 ABP, PAP, CO, CI - Last Documented Arterial Blood Pressure 111/50 - Labs CBC & Chem 7: 10/26/23 11:01 10/26/23 11:01 Labs: Abnormal Lab Results - Last 24 Hours (Table) 10/25/23 10/25/23 10/25/23 Range/Units 16:40 17:27 20:08 WBC (3.8-10.6) k/uL RBC (3.80-5.40) m/uL Hgb (11.4-16.0) gm/dL Hct (34.0-46.0) % MCV (80.0-100.0) fL RDW (11.5-15.5) % Plt Count (150-450) k/uL Neutrophils # (1.3-7.7) k/uL Monocytes # (0-1.0) k/uL Macrocytosis Sodium (137-145) mmol/L Potassium (3.5-5.1) mmol/L Chloride (98-107) mmol/L BUN (7-17) mg/dL Creatinine (0.52-1.04) mg/dL Glucose (74-99) mg/dL POC Glucose (mg/dL) 113 H 238 H (70-110) mg/dL Calcium (8.4-10.2) mg/dL Total Bilirubin (0.2-1.3) mg/dL AST (14-36) U/L ALT (4-34) U/L Albumin (3.5-5.0) g/dL Stool Occult Blood Positive H (Negative) 10/26/23 10/26/23 10/26/23 Range/Units 06:21 11:01 11:01 WBC 36.6 H (3.8-10.6) k/uL RBC 2.59 L (3.80-5.40) m/uL Hgb 8.9 L (11.4-16.0) gm/dL Hct 27.3 L (34.0-46.0) % MCV 105.2 H (80.0-100.0) fL RDW 24.5 H (11.5-15.5) % Plt Count 119 L (150-450) k/uL Neutrophils # 33.2 H (1.3-7.7) k/uL Monocytes # 1.1 H (0-1.0) k/uL Macrocytosis Marked A Sodium 126 L (137-145) mmol/L Potassium 3.4 L (3.5-5.1) mmol/L Chloride 96 L (98-107) mmol/L BUN 26 H (7-17) mg/dL Creatinine 0.49 L (0.52-1.04) mg/dL Glucose 131 H (74-99) mg/dL POC Glucose (mg/dL) 149 H (70-110) mg/dL Calcium 7.8 L (8.4-10.2) mg/dL Total Bilirubin 4.8 H (0.2-1.3) mg/dL AST 76 H (14-36) U/L ALT 73 H (4-34) U/L Albumin 2.6 L (3.5-5.0) g/dL Stool Occult Blood (Negative) 10/26/23 10/26/23 Range/Units 11:31 16:07 WBC (3.8-10.6) k/uL RBC (3.80-5.40) m/uL Hgb (11.4-16.0) gm/dL Hct (34.0-46.0) % MCV (80.0-100.0) fL RDW (11.5-15.5) % Plt Count (150-450) k/uL Neutrophils # (1.3-7.7) k/uL Monocytes # (0-1.0) k/uL Macrocytosis Sodium (137-145) mmol/L Potassium (3.5-5.1) mmol/L Chloride (98-107) mmol/L BUN (7-17) mg/dL Creatinine (0.52-1.04) mg/dL Glucose (74-99) mg/dL POC Glucose (mg/dL) 177 H 46 L (70-110) mg/dL Calcium (8.4-10.2) mg/dL Total Bilirubin (0.2-1.3) mg/dL AST (14-36) U/L ALT (4-34) U/L Albumin (3.5-5.0) g/dL Stool Occult Blood (Negative)
[2023-10-26 16:29] LABS: Glucose,Whole Blood 65 mg/dL (70-110)
[2023-10-26 16:48] LABS: Glucose,Whole Blood 85 mg/dL (70-110)
[2023-10-26 19:50] LABS: Glucose,Whole Blood 140 mg/dL (70-110)
[2023-10-27 05:57] LABS: Glucose,Whole Blood 167 mg/dL (70-110)
--- NOTE | 2023-10-27 08:01 | P.PN ---
Subjective Patient is a 48-year-old female with a past medical history of severe alcohol abuse, quit 5 years ago, alcoholic liver cirrhosis and is on follow-up with her resource manager at [facility], IBS, anxiety/depression and presents to ER with complaints of worsening shortness of breath. Patient states that she has been having shortness of breath for the past week and a half and did get worse in the last few days. Patient tried using her breathing treatments at home but did not get improvement. Patient was recently given antibiotics and prednisone by her physician. She has been increasingly weak and not feeling well. Patient presented to ER for evaluation. He was also complaining of cough without any sputum production. Also complaining of chest tightness and anxiety. Denies any leg swelling. No nausea or vomiting. Patient is also having increased abdominal girth. No prior history of paracentesis as per patient. Denies any fever at home. On admission patient was tachycardic and tachypneic and pulse ox 80% on room air. Currently requiring 8 L of oxygen via nasal cannula. CT of the abdomen pelvis showed patchy bilateral airspace consolidation consistent with multilobar pneumonia. Hepatic steatosis, abdominal ascites. Wa ll thickening of small bowel correlate for mild enteritis versus spontaneous bacterial peritonitis. CTA chest showed no PE. Patchy bilateral airspace consolidation consistent with multilobar pneumonia. Chest x-ray showed similar multifocal airspace opacities. Laboratory data showed WBC 16.5 hemoglobin 10.0 MCV 102.4 and platelets 188 and neutrophils 14.4 INR 1.7, D-dimer 2.8 Sodium 132 potassium 3.7 chloride 95 bicarbonate 24 BUN 18 and creatinine 0.84 and blood sugar 270 and lactic acid 7.0 on admission, calcium 8.1, total bilirubin level is 4.6 AST 113 ALT 68 and alk phos 208 Troponin 0.012 and proBNP 2040 and albumin 3.0 Influenza A, B, RSV and COVID-19 PCR not detected. 10/10/2023 Patient was transferred to MICU. Overnight patient's respiratory status worsened due to multifocal pneumonia and also patient is receiving fluids at 100 cc/h due to sepsis. Patient was intubated and is on assist-control. Patient is currently requiring pressor support. Chest x-ray this morning showed severe bilateral pulmonary infiltration which has worsened. Was given IV Lasix. 2D echocardiogram showed dilated LV and severe LV systolic dysfunction. Ejection fraction 30 to 35%. Laboratory showed WBC worsened to 26.6 hemoglobin 10.3 and platelets 190 Sodium 139 potassium 3.6 chloride 108 bicarb is 20 BUN 15 and creatinine 0.64 blood sugar 206 and A1c 6.8 lactic acid 5.4 this morning. Liver enzymes are elevated. Cardiology and pulmonary is on board. Patient is being continued on antibiotics changed to Zosyn. Procalcitonin level is elevated at 0.61. 10/11/2023 Patient is in the MICU. Intubated and sedated. On mechanical ventilator. Patient is also requiring pressor support with Levophed and also on dobutamine drip. Urine output remains low. Patient has been afebrile. Nutrition via NG tube. Patient was also started on IV hydration with normal saline at 75 cc/h. Chest x-ray showed multifocal airspace opacities are not significantly changed. Support tubes and proper positioning. Patient remains on antibiotics in the form of Zosyn. 2D echocardiogram showed left ventricular ejection fraction 30 to 35%. Mild right ventricular dilatation. Trace pericardial effusion and pleural effusion was identified. Laboratory data showed WBC 24.9 hemoglobin 9.6 and platelets 187 Sodium 137 potassium 4.2 chloride 102 bicarb is 26 BUN 25 and creatinine 1.1 and blood sugar 264. Patient is scheduled for paracentesis tomorrow. Blood cultures negative so far. Cardiology and pulmonary is on board. 10/12/2023 Patient is in the MICU. Remains intubated and sedated. On assist-control with respiratory of 20 tidal volume 350 and FiO2 40% and PEEP of 10. Continue to be on vasopressin and norepinephrine. Patient was also started on IV hydration with normal saline at 75 cc/h. Urine output is marginal. Patient remains on antibiotics Zosyn. Repeat chest x-ray this morning showed similar multifocal airspace opacities. Patient was given a dose of IV Lasix. Stable support tubes. Laboratory data showed WBC 24.6 hemoglobin 9.1 and platelets 144 BUN 40 and creatinine 1.09 and blood sugar is elevated at 312. Levemir dose increased to 12 units twice daily and continue with insulin sliding scale. Cardiology and critical care team is on board.Patient is scheduled to go for paracentesis today. 10/13/2023 Patient remains in the MICU. On assist-control with FiO2 35% and PEEP of 10. Tidal volume 350. Currently sedation is off. Chest x-ray showed stable exam mild pulmonary edema. Patient underwent ultrasound-guided paracentesis with 1800 cc clear straw- colored fluid drained. Pathology and culture is pending. Laboratory data showed WBC 25.4 hemoglobin 8.7 and platelets 127 BUN 49 creatinine 1.03 potassium 4.2 and blood sugar 159. Patient is being current on IV Solu-Medrol 60 mg every 6 hourly and is also on antibiotics, Zosyn. 10/14/2023 Patient is a pleasant 48 years old female who presents with bilateral pneumonia with acute hypoxic respiratory failure requiring intubation and mechanical ventilation. CTA of the chest was negative for PE which is done secondary to high d-dimer, CT of the abdomen showing thickened small bowel loops suspicious for enteritis, patient currently covered with Zosyn ProBNP is elevated 2039, chest x-ray showing mild was for congestion and ejection fraction is 30-35% patient is receiving IV Lasix and She Is Intubated. She Is Also on Salmeterol 60 Mg for Possible Acute COPD Exacerbation. Patient on Insulin Levemir 12 Units Twice Daily She Has Decompensated Liver Cirrhosis Status Post Paracentesis on 10/12 Where 1800 ML of Fluid Aspirated Patient today undergoing sedation holiday with propofol was off since yesterday Patient got agitated and she was placed on Precedex as well as IV morphine with little help so far Discussed with the bedside nurse Patient could not tolerate CPAP earlier, currently continued on mechanical ventilation with P5 and FiO2 of 40% Family at bedside 10/15/2023 Patient remains in the ICU intubated and sedated Over the last 2 days she was undergoing sedation holiday and propofol was stopped Today she was more agitated and she was placed back on a propofol Pulmonary level yesterday was 20 but given her worsening mentation we ordered a repeat ammonia level and KUB for abdomen slightly distended She had paracentesis related to her decompensated liver cirrhosis about 3 days ago with 1800 mL of fluid taken out We going to order a KUB but possible patient will require more paracentesis She received 1 dose of IV Lasix Normal saline 75 mL output 250 mL/h She remains on Zosyn and Solu-Medrol 60 mg Discussed with the bedside nurse 10/16/2023 Patient remains in the ICU intubated and sedated Yesterday after on repeat chest x-ray showing pulmonary congestion IV fluids of normal saline 50 mL was stopped and patient was started on IV Lasix 40 mg every 8 hours Repeat chest x-ray this morning testosterone pulmonary congestion, KUB showing nonobstructive pattern most likely patient has ascites related to her liver cirrhosis. Also patient placed on low-dose Lopressor suffers a percent respiratory blood pressure Metoprolol 25 mg 3 times a day per Display Coordinator This she swelling is on board and patient glucose is controlled. 10/17/2023 Patient is from his ICU sedated and intubated. Today propofol was stopped and patient could follow command Weaning trial is attempting and patient was replaced back on before meals mode because of her tachypnea Also patient is planned to undergo paracentesis so between today and tomorrow for her ascites related to her liver cirrhosis. Extremities without obvious on Medrol 40 mg, Zosyn, IV Lasix 40 mg every 8 hours. 10/18/2023 Patient remains intubated and sedated in the ICU with pulmonary/critical care team followed closely. Patient under going sedation holiday for possible extubation She still has leukocytosis of 24,000, hemoglobin 8.6. IV fluids discontinued Currently on Solu-Medrol 40 mg, Zosyn and Lasix 40 mg 3 times a day. 10/19/2023 Patient is status post extubation today. She is awake alert and family at bedside trying to feed her. She developed a large direct well. She is calm pleasant looks little bit tired. Denies any specific symptoms with no chest pain or dyspnea. Abdomen is mildly distended but soft no tenderness. She remains on IV Solu-Medrol 40 mg twice daily, IV Lasix 40 twice daily. She is not an antibiotic I am resuming the care of the patient Patient awake alert looks relaxed and comfortable in bed She is eating her meal with no difficulty Her abdomen mildly distended She status post paracentesis with 4.2 L of fluid taken out She is mildly tachycardic with a heart attack and 106 Blood pressure 95/59 Sodium on the low side to 127 WBCs 20 9K, patient he has history of chronic leukocytosis since 2019 Hemoglobin stable 7.6. Platelet count 104 INR 1.6. Patient remains on IV salmeterol 40 mg and IV Lasix 40 mg 10/24/2023 Patient awake alert, sitting up in chair, looks pleasant Patient denies any specific symptoms, no dyspnea or chest pain or coughing. Abdominal distention is mild, improvement after paracentesis, no urinary symptoms and her bowel movement is formed. No confusion, no abdominal pain or tenderness. Her fluid overload is improving Actually she has mild hypovolemic hyponatremia today with sodium 125. Hemoglobin dropped to 6.7 and she is going to be given 1 unit of blood transfu jono WBC is elevated at 28,000 which is chronic Chest x-ray showing improvement aeration. please refer to the for report She still on office on Medrol 4 mg twice daily and IV Lasix 40 mg twice daily 10/25/2023 Patient awake and alert Denies specific symptoms, to the risks some diet Abdomen mildly distended Patient had severe anemia yesterday at 6.7 received 1 unit of blood transfusion went up to 9.4 this morning her stool was dark suspicious for GI bleed so we repeated hemoglobin was 8.9. Patient blood pressure is stable but mildly tachycardic. Patient IV Lasix was held. I saw Medrol was held as well as IV Lovenox. Patient continued on IV Protonix, iron pills added We'll check for occult blood in the stool Transfer the patient to [facility], stress UNIT for more close monitoring Consult general surgery team 10/26/2023 Patient awake alert, mentation at baseline, she is somewhat whispering. Denies dyspnea. No abdominal pain or tenderness, abdomen mildly distended but soft No evidence of cellulitis, she has some oozing spots from her right thigh. She had 2 bowel movements which are black in color. Sodium 126 from 125 yesterday most likely hypervolemic hyponatremia Yesterday Lasix 40 mg IV twice a day was stopped, and we going to resume Lasix 40 mg by mouth daily. Also we will add Aldactone small dose Hemoglobin stable 8.9, surgery team are planning for further evaluation, and po ssible scope She was on IV Protonix Pressure is up again the umbilicus her NovoLog 3 units up to 5 units with meals 10/27/2023 Patient awake and alert at baseline, she is calm and relaxed not in distress She's getting lactulose and states she had one to 2 bowel movements yesterday, no blood Vitals stable. Hemoglobin from yesterday was stable, today labs are pending Patient is abdomen is mildly distended and after blood transfusion. She was placed on oral Lasix 40 mg daily and Aldactone 12.5 mg General surgeon on the case and plan for procedure today to check for acute blood loss anemia. She's not on anticoagulation and she is on IV Protonix Dietitian consult for her malnutrition there is no GI service in this facility during this week Objective - Vital Signs Vital signs: Vital Signs Temp 98.4 F 10/27/23 03:22 Pulse 121 H 10/27/23 03:22 Resp 16 10/27/23 03:22 BP 118/76 10/27/23 03:22 Pulse Ox 92 L 10/27/23 03:22 FiO2 50 10/18/23 14:10 Intake & Output 10/26/23 10/27/23 10/27/23 18:59 06:59 18:59 Weight 37 kg 40 kg Other: Voiding Method Bedpan Diaper # Voids 2 0 # Bowel Movements 4 0 ABP, PAP, CO, CI - Last Documented Arterial Blood Pressure 111/50 - Exam GENERAL: The patient is alert and oriented x3, not in any acute distress. Well developed, well nourished. HEENT: Pupils are round and equally reacting to light. EOMI. No scleral icterus. No conjunctival pallor. Normocephalic, atraumatic. No pharyngeal erythema. No thyromegaly. CARDIOVASCULAR: S1 and S2 present. No murmurs, rubs, or gallops. PULMONARY: Chest is clear to auscultation, no wheezing , no crackles. -ABDOMEN: Soft, nontender, mildly distended, normoactive bowel sounds. No palpable organomegaly. MUSCULOSKELETAL: No joint swelling or deformity. EXTREMITIES: No cyanosis, clubbing, or pedal edema. NEUROLOGICAL: Gross neurological examination did not reveal any focal deficits. SKIN: No rashes. no petechiae. - Labs CBC & Chem 7: 10/26/23 11:01 10/26/23 11:01 Labs: Abnormal Lab Results - Last 24 Hours (Table) 10/26/23 10/26/23 10/26/23 Range/Units 11:01 11:01 11:31 WBC 36.6 H (3.8-10.6) k/uL RBC 2.59 L (3.80-5.40) m/uL Hgb 8.9 L (11.4-16.0) gm/dL Hct 27.3 L (34.0-46.0) % MCV 105.2 H (80.0-100.0) fL RDW 24.5 H (11.5-15.5) % Plt Count 119 L (150-450) k/uL Neutrophils # 33.2 H (1.3-7.7) k/uL Monocytes # 1.1 H (0-1.0) k/uL Macrocytosis Marked A Sodium 126 L (137-145) mmol/L Potassium 3.4 L (3.5-5.1) mmol/L Chloride 96 L (98-107) mmol/L BUN 26 H (7-17) mg/dL Creatinine 0.49 L (0.52-1.04) mg/dL Glucose 131 H (74-99) mg/dL POC Glucose (mg/dL) 177 H (70-110) mg/dL Calcium 7.8 L (8.4-10.2) mg/dL Total Bilirubin 4.8 H (0.2-1.3) mg/dL AST 76 H (14-36) U/L ALT 73 H (4-34) U/L Albumin 2.6 L (3.5-5.0) g/dL 10/26/23 10/26/23 10/26/23 Range/Units 16:07 16:28 19:49 WBC (3.8-10.6) k/uL RBC (3.80-5.40) m/uL Hgb (11.4-16.0) gm/dL Hct (34.0-46.0) % MCV (80.0-100.0) fL RDW (11.5-15.5) % Plt Count (150-450) k/uL Neutrophils # (1.3-7.7) k/uL Monocytes # (0-1.0) k/uL Macrocytosis Sodium (137-145) mmol/L Potassium (3.5-5.1) mmol/L Chloride (98-107) mmol/L BUN (7-17) mg/dL Creatinine (0.52-1.04) mg/dL Glucose (74-99) mg/dL POC Glucose (mg/dL) 46 L 65 L 140 H (70-110) mg/dL Calcium (8.4-10.2) mg/dL Total Bilirubin (0.2-1.3) mg/dL AST (14-36) U/L ALT (4-34) U/L Albumin (3.5-5.0) g/dL 10/27/23 Range/Units 05:56 WBC (3.8-10.6) k/uL RBC (3.80-5.40) m/uL Hgb (11.4-16.0) gm/dL Hct (34.0-46.0) % MCV (80.0-100.0) fL RDW (11.5-15.5) % Plt Count (150-450) k/uL Neutrophils # (1.3-7.7) k/uL Monocytes # (0-1.0) k/uL Macrocytosis Sodium (137-145) mmol/L Potassium (3.5-5.1) mmol/L Chloride (98-107) mmol/L BUN (7-17) mg/dL Creatinine (0.52-1.04) mg/dL Glucose (74-99) mg/dL POC Glucose (mg/dL) 167 H (70-110) mg/dL Calcium (8.4-10.2) mg/dL Total Bilirubin (0.2-1.3) mg/dL AST (14-36) U/L ALT (4-34) U/L Albumin (3.5-5.0) g/dL Assessment and Plan Assessment: Significant anemia GI bleed, status post one unit of blood transfusion Acute hypoxic respiratory failure secondary to multifocal pneumonia and pulmonary edema. Patient is 8 L high flow oxygen--> intubated on mechanical ventilator. Pulmonary edema likely due to cardiogenic with low ejection fraction 30 to 35%. Acute HFrEF with ejection fraction 30 -45% moderate calorie protein malnutrition Multifocal pneumonia, finished her course of antibioitics Sepsis/septic shock secondary to above. off pressor support COPD with acute exacerbation Lactic acidosis 7.0 on admission Alcoholic liver cirrhosis Ascites Patient is status post paracentesis on 10/13/2023. Hepatic steatosis and hyperbilirubinemia and elevated liver enzymes History of severe alcohol abuse. Quit 5 years ago History of chronic pancreatitis Anxiety/depression Plan: Patient is awake and alert and tolerates diet well on oral lasix and aldacotone as small dose at 12.5 mg daily No antibiotic, no steroids Transfuse for hemoglobin less than 7.Give 1 unit on 10/24 surgery team are planning for endoscopic evaluation no GI service in this facility during this week Pulmonary team on the case Surgical team consult for GI bleed (there is no GI coverage this facility) DVT prophylaxis: Discontinue Lovenox subcu passer GI bleed. Continue with SCD GI prophylaxis: IV Protonix Prognosis is guarded.
[2023-10-27 08:30] LABS: Anisocytosis Moderate; Basophils # (A) 0.1 k/uL (0-0.2); Basophils % (A) 0 %; Eosinophils # (A) 0.1 k/uL (0-0.7); Eosinophils % (A) 0 %; HCT 28.8 % (34.0-46.0); HGB 8.9 gm/dL (11.4-16.0); Hypochromasia Marked; Lymphocytes # (A) 1.2 k/uL (1.0-4.8); Lymphocytes % (A) 5 %; MCH 32.6 pg (25.0-35.0); MCHC 30.7 g/dL (31.0-37.0); MCV 106.3 fL (80.0-100.0); Macrocytosis Marked; Mean Platelet Volume 9.8; Monocytes # (A) 0.7 k/uL (0-1.0); Monocytes % (A) 3 %; Neutrophils # (A) 23.2 k/uL (1.3-7.7); Neutrophils % (A) 91 %; Poikilocytosis Slight; RBC 2.71 m/uL (3.80-5.40); RDW 23.1 % (11.5-15.5); WBC 25.4 k/uL (3.8-10.6)
[2023-10-27 08:47] LABS: ALT 72 U/L (4-34); AST 64 U/L (14-36); African American GFR (CKD) >90 (>60 ml/min/1.73 sqM); Albumin 2.5 g/dL (3.5-5.0); Alkaline Phosphatase 134 U/L (38-126); Anion Gap 8 mmol/L; Bilirubin, Conjugated 0.7 mg/dL (0.0-0.3); Bilirubin, Delta 1.6 mg/dL (0.0-0.2); Bilirubin,Unconjugated 2.6 mg/dL (0.0-1.1); Blood Urea Nitrogen 20 mg/dL (7-17); Calcium 7.5 mg/dL (8.4-10.2); Carbon Dioxide 24 mmol/L (22-30); Chloride 93 mmol/L (98-107); Glucose 159 mg/dL (74-99); Non-African American GFR(CKD) >90 (>60 ml/min/1.73 sqM); Potassium 2.9 mmol/L (3.5-5.1); Sodium 125 mmol/L (137-145); Total Bilirubin 4.9 mg/dL (0.2-1.3); Total Protein 6.1 g/dL (6.3-8.2)
[2023-10-27] MEDS: POTASSIUM CHLORIDE ER 20 MEQ TAB.ER PO SCH (09:26)
[2023-10-27 10:55] LABS: Platelet Count 92 k/uL (150-450)
[2023-10-27 10:58] LABS: Poikilocytosis (M) Present; Polychromasia Present
[2023-10-27 11:05] VITALS: BMI 16.1
[2023-10-27 11:23] LABS: Glucose,Whole Blood 204 mg/dL (70-110)
--- NOTE | 2023-10-27 12:03 | P.PN ---
Subjective Progress Note Date: 10/27/23 On 10/23/2023, the patient is being seen for a follow-up. The patient is known to have liver cirrhosis and chronic pancreatitis. The patient is a recovering alcoholic and she quit drinking approximately 5 years ago. The patient also has history of smoking, chronic anxiety and depression and acid reflux. The patient presented to to the hospital because of multilobar pneumonia and hypoxic respiratory failure. The patient had bilateral patchy airspace disease. The patient was treated in the intensive care unit. During the course of her ICU stay, the patient developed also worsening pulmonary edema in addition to underlying pneumonia. The patient had to be intubated and placed on mechanical ventilator. Note that she also has CHF with LV dysfunction and ejection fraction of 30%. No significant valvular abnormalities. She was treated with IV Zosyn and she was also placed on diuretics. The viral panel was negative. Her proBNP level was above 2000. The procalcitonin level was at 0.6. The patient remains on a mechanical ventilator and she was gradually weaned off the pressors as the patient required pressors to treat her sepsis. She was ultimately extubated on 09/18/2023 and currently she is on the medical floor maintained on 2 L of oxygen by nasal cannula. The most recent chest x-ray was done on 10/20/2023 that showed right middle lobe and left lower lobe airspace disease with hazy appearance of the lungs compatible with pneumonia. The patient also has abdominal distention and ascites. Ultrasound the abdomen that was done showed moderate degree of ascites and the patient underwent a paracentesis today with a total of 4.2 L of fluid removed. The patient remains on DuoNeb nebulized treatments [id number]. The patient is also on Lasix 40 mg IV every 12 hours. The patient completed her antibiotic course. Sputum culture from 10/12/2022 was positive for Marleni. The patient is white cell count of 29 with a hemoglobin 7.6 and a platelet count of 98. Sodium is at 127, BUN is at 30 creatinine 0.5 and a potassium level of 3.8. On today's evaluation after 02/2024, the patient sitting up on the chair. No significant respiratory distress and the patient is currently on room air oxygen. He is on Lasix 40 mg IV every 12 hours. The patient is in negative fluid balanceAnd the patient had a repeat chest x-ray that showed improving and then consistent changes bilaterally and resolving pulm vascular congestion. Also, the bibasilar pulm infiltrates also improved. The patient has no specific complaints. The white cell count is still elevated at 28 and this needs to be monitored. Hemoglobin has dropped down to 6.7 and the platelet count is at 120. No evidence of any GI bleeding at this point in time. Sodium levels at 125, BUN is at 29 with a creatinine of 0.6 and a potassium level at 3.4. The patient has no signs of encephalopathy. She is communicating. Denies having any chest pain. No nausea or vomiting or emesis at this point in time. She remains on Lovenox 40 mg subcu for DVT prophylaxis. She remains also on IV Solu-Medrol which will be discontinued today. On 10/25/2023, the patient is being seen for a follow-up. She is resting comfortably in bed. As noted yesterday, the patient had a drop in hemoglobin at 6.7 yesterday and the patient was given a unit of packed RBC. Subsequent hemoglobin came back To 9.4. However, it was noted that the patient was having some melanotic stool today and there is a concern for an ongoing GI bleeding. The white cell count today is elevated at 32 and a platelet count is 839. No hemodynamic instability. BUN is at 26 with a creatinine of 0.6. Sodium levels at 129. The patient on Lovenox for DVT prophylaxis. The patient remains on IV Lasix. The patient is also on IV Solu-Medrol. I took the opportunity to stop the Lasix and the Lovenox. I also suggested to discontinue the IV Solu-Medrol as the patient has no signs of bronchospasm or wheezing. The patient is currently on room air oxygen. She is slightly tachycardic and she is hemodynamically stable. The patient is going to be transferred to a monitored bed regarding the possibility of GI bleeding. Her current bilirubin is at 5.6 with a AST of 69 ALT of 78 and total protein is at 6.4 with an albumin of 2.7. She is lethargic and arousable and she is communicating. No hematemesis. On today's evaluation of 10/26/2023, I am seeing the patient for a follow-up. The patient is doing well. No specific complaints. No further witnessed episodes of GI bleeding. The patient got transferred to telemetry unit for a suspicious episode of GI bleed that was mentioned yesterday. The patientHad a follow-up CBC today and the hemoglobin currently is at 8.9 which is essentially stable compared to yesterday. The white cell count remains elevated. The patient's platelet count is also stable at 119. Sodium level was 126 with a potassium level of 3.4 BUN is at 26 with a creatinine of 0.4. The liver function tests are minimally elevated with an AST of 76, ALT of 73 and the most recent bilirubin level was at 3.1. She is resting comfortably in bed and the patient is currently on room air oxygen with a pulse ox of 94%. The patient is tachycardic. She does have abdominal ascites. I discontinued the Lasix yesterday. I also discontinued IV Solu-Medrol. The patient is currently on no specific antibiotic coverage. She was restarted back on a combination of Lasix and Aldactone as of this morning. This was done by the medical team. She is arousable and she is alert. When left unstimulated, she will go back into sleep. She is also on IV Protonix. On today's evaluation of 10/27/2023, seen the patient for a follow-up. The patient is doing well on room air oxygen. No evidence of any GI bleeding over the past 24 hours and the patient denies having any Bright red blood per rectum or melanotic stool. Meanwhile, the patient's hemoglobin is at 8.9 which is essentially stable compared to yesterday. Her platelet count is at 92. The white cell count is dropped down to 25 compared to 36 from yesterday. Rest of the electrolytes are essentially comparable with a potassium level of 2.9 and his sodium level is 125. BUN is at 20 with a creatinine of 0.4. LFTs are abnormal. This is consistent with her chronic liver disease. The patient otherwise has no other new complaints. She is awake and alert. She does have some mild degree of encephalopathy with chronic tiredness and sleepiness. She remains on lactulose 10 mg p.o. twice daily. She remains on Aldactone. She remains on Lasix 40 mg IV every 12 hours. Objective - Vital Signs Vital signs: Vital Signs Temp 97.9 F 10/27/23 08:00 Pulse 114 H 10/27/23 08:00 Resp 18 10/27/23 08:00 BP 113/62 10/27/23 08:00 Pulse Ox 94 L 10/27/23 08:00 FiO2 50 10/18/23 14:10 Intake & Output 10/26/23 10/27/23 10/27/23 18:59 06:59 18:59 Weight 37 kg 40 kg Other: Voiding Method Bedpan Diaper # Voids 2 0 # Bowel Movements 4 0 ABP, PAP, CO, CI - Last Documented Arterial Blood Pressure 111/50 - Exam GENERAL EXAM: Alert, pleasant 48-year-old female, on room air oxygen, resting in bed, in no apparent distress. The patient remains jaundiced, and the patient is currently jaundiced, very much cachectic and weak with a body mass index of 14.1. HEAD: Normocephalic. EYES: Normal reaction of pupils, equal size. NOSE: Clear with pink turbinates. THROAT: No erythema or exudates. NECK: No masses, no JVD. CHEST: No chest wall deformity. LUNGS: Equal air entry with no crackles, wheeze, rhonchi or dullness. CVS: S1 and S2 normal with no audible murmur, regular rhythm. ABDOMEN: Edmar distended, positive fluid wave, normal bowel sounds, no guarding or rigidity. SPINE: No scoliosis or deformity SKIN: No rashes CENTRAL NERVOUS SYSTEM: No focal deficits, tone is normal in all 4 extremities. EXTREMITIES: There is 1+ peripheral edema. No clubbing, no cyanosis. Peripheral pulses are intact. - Labs CBC & Chem 7: 10/27/23 08:06 10/27/23 08:06 Labs: Abnormal Lab Results - Last 24 Hours (Table) 10/26/23 10/26/23 10/26/23 Range/Units 11:01 11:01 11:31 WBC 36.6 H (3.8-10.6) k/uL RBC 2.59 L (3.80-5.40) m/uL Hgb 8.9 L (11.4-16.0) gm/dL Hct 27.3 L (34.0-46.0) % MCV 105.2 H (80.0-100.0) fL MCHC (31.0-37.0) g/dL RDW 24.5 H (11.5-15.5) % Plt Count 119 L (150-450) k/uL Neutrophils # 33.2 H (1.3-7.7) k/uL Monocytes # 1.1 H (0-1.0) k/uL Macrocytosis Marked A Sodium 126 L (137-145) mmol/L Potassium 3.4 L (3.5-5.1) mmol/L Chloride 96 L (98-107) mmol/L BUN 26 H (7-17) mg/dL Creatinine 0.49 L (0.52-1.04) mg/dL Glucose 131 H (74-99) mg/dL POC Glucose (mg/dL) 177 H (70-110) mg/dL Calcium 7.8 L (8.4-10.2) mg/dL Total Bilirubin 4.8 H (0.2-1.3) mg/dL Conjugated Bilirubin (0.0-0.3) mg/dL Unconjugated Bilirubin (0.0-1.1) mg/dL Delta Bilirubin (0.0-0.2) mg/dL AST 76 H (14-36) U/L ALT 73 H (4-34) U/L Alkaline Phosphatase (38-126) U/L Total Protein (6.3-8.2) g/dL Albumin 2.6 L (3.5-5.0) g/dL 10/26/23 10/26/23 10/26/23 Range/Units 16:07 16:28 19:49 WBC (3.8-10.6) k/uL RBC (3.80-5.40) m/uL Hgb (11.4-16.0) gm/dL Hct (34.0-46.0) % MCV (80.0-100.0) fL MCHC (31.0-37.0) g/dL RDW (11.5-15.5) % Plt Count (150-450) k/uL Neutrophils # (1.3-7.7) k/uL Monocytes # (0-1.0) k/uL Macrocytosis Sodium (137-145) mmol/L Potassium (3.5-5.1) mmol/L Chloride (98-107) mmol/L BUN (7-17) mg/dL Creatinine (0.52-1.04) mg/dL Glucose (74-99) mg/dL POC Glucose (mg/dL) 46 L 65 L 140 H (70-110) mg/dL Calcium (8.4-10.2) mg/dL Total Bilirubin (0.2-1.3) mg/dL Conjugated Bilirubin (0.0-0.3) mg/dL Unconjugated Bilirubin (0.0-1.1) mg/dL Delta Bilirubin (0.0-0.2) mg/dL AST (14-36) U/L ALT (4-34) U/L Alkaline Phosphatase (38-126) U/L Total Protein (6.3-8.2) g/dL Albumin (3.5-5.0) g/dL 10/27/23 10/27/23 10/27/23 Range/Units 05:56 08:06 08:06 WBC 25.4 H (3.8-10.6) k/uL RBC 2.71 L (3.80-5.40) m/uL Hgb 8.9 L (11.4-16.0) gm/dL Hct 28.8 L (34.0-46.0) % MCV 106.3 H (80.0-100.0) fL MCHC 30.7 L (31.0-37.0) g/dL RDW 23.1 H (11.5-15.5) % Plt Count (150-450) k/uL Neutrophils # (1.3-7.7) k/uL Monocytes # (0-1.0) k/uL Macrocytosis Marked A Sodium 125 L (137-145) mmol/L Potassium 2.9 L (3.5-5.1) mmol/L Chloride 93 L (98-107) mmol/L BUN 20 H (7-17) mg/dL Creatinine 0.47 L (0.52-1.04) mg/dL Glucose 159 H (74-99) mg/dL POC Glucose (mg/dL) 167 H (70-110) mg/dL Calcium 7.5 L (8.4-10.2) mg/dL Total Bilirubin 4.9 H (0.2-1.3) mg/dL Conjugated Bilirubin 0.7 H (0.0-0.3) mg/dL Unconjugated Bilirubin 2.6 H (0.0-1.1) mg/dL Delta Bilirubin 1.6 H (0.0-0.2) mg/dL AST 64 H (14-36) U/L ALT 72 H (4-34) U/L Alkaline Phosphatase 134 H (38-126) U/L Total Protein 6.1 L (6.3-8.2) g/dL Albumin 2.5 L (3.5-5.0) g/dL Assessment and Plan Plan: Acute hypoxic respiratory failure secondary to acute bilateral multilobar pneumonia as well as some fluid overload/CHF, status post intubation and mechanical ventilation on October 10, 2023. S/P successful extubation on October 18, 2023. The patient remains extubated on room air oxygen. Follow-up chest x- ray from today shows improvement in the bibasilar pulm infiltrates and the pulm onary vascular congestion. The patient is responding nicely to diuretics. The patient is currently on room air oxygen. The patient remains on a combination of Lasix and Aldactone. Acute pulmonary edema, cardiogenic in origin, with an ejection fraction of 20%, patient has been adequately diuresed with subsequent improvement in the chest x- ray and oxygenation. Acute exacerbation of chronic obstructive pulmonary disease secondary to above, recovered Ascites, status post paracentesis abdominis, underwent paracentesis on 10/23/2023 with a total of 4.2 L of ascitic fluid being drained. Noted the patient during the course of her illness. Also another paracentesis done 10/17/2023. Chronic and ongoing tobacco dependence History of heavy alcohol abuse however quit 5 years ago History of cirrhosis secondary to above History of chronic pancreatitis secondary to above History of anxiety/depression Jaundice to the bilirubin level remains elevated with disturbed LFTs Profound motor weakness, generalized secondary to above-mentioned comorbidities Chronic hyponatremia related to liver cirrhosis Diabetes mellitus secondary to above maintained on Levemir insulin 10 units daily along with sliding scale coverage Acute on top of chronic anemia hemoglobin is dropped down to 6.7 had subse quently improved and is currently up to 8.9 Chronic thrombocytopenia related to liver disease, platelet count are stable Leukocytosis, improving Plan: Hemoglobin stable for now Continue Protonix 80 mg IV every 24 hours. Monitor blood pressure and hemodynamics Resume IV Lasix 40 mg every 12 hours in combination with Aldactone Monitor the white cell count, white cell count is improving Patient currently is on no antibiotic coverage Monitor hemoglobin, hemoglobin stable for now Watch for any further signs of GI bleeding and transfer this patient to monitored bed Consult GI services regarding GI bleeding. Will continue to follow.
[2023-10-27] MEDS: FUROSEMIDE 10 MG/ML 4 ML VIAL IV SCH (13:19)
[2023-10-27] MEDS: POTASSIUM CHLORIDE 10 MEQ in WATER FOR INJECTION 1 100ML.BAG IVPB SCH (13:19)
--- NOTE | 2023-10-27 15:00 | US ---
Ultrasound-guided paracentesis. DATE OF EXAM: 10/27/2023 CLINICAL HISTORY: Ascites The procedure was discussed with the patient. The risks, complications, benefits, and alternatives we re discussed and any questions were answered. Informed consent was obtained. The patient was placed s upine on the ultrasound table and prepped and draped in the usual sterile fashion. All elements of maximal barrier technique were utilized. Under ultrasound guidance, access into the right lower quadrant was obtained, via the paracentesis catheter system and direct ultrasound guidanc e. Approximately 3.6 liters of straw-colored fluid was removed. The patient was stable throughout the pr ocedure and remained stable upon discharge from Department of Radiology. IMPRESSION: Successful paracentesis under ultrasound guidance.
--- NOTE | 2023-10-27 15:45 | P.GSCN ---
History of Present Illness Consult date: 10/26/23 History of present illness: Please note accidentally dictated consult under progress note CHIEF COMPLAINT: Pneumonia Reason for consult anemia HISTORY OF PRESENT ILLNESS: This is a 48-year-old female with multiple medical problems and prolonged hospitalization. Presented with pneumonia and sepsis and had required to be on mechanical ventilation. Rectal tube was removed yesterday. Patient started to have blood noted in her stools. Patient had possibly both black and bloody stools. Possibly black stools yesterday and some mild red blood today. She denies any abdominal pain. Denies any nausea or vomiting. No prior history of GI bleed. Last colonoscopy was 2 years ago and reported as negative. Patient also has required 3 paracentesis during this admission due to her liver cirrhosis. Hemoglobin 6.7 up to 8.9 after 1 unit of blood. PAST MEDICAL HISTORY: See list. PAST SURGICAL HISTORY: See list. MEDICATIONS: See list. ALLERGIES: See list. SOCIAL HISTORY: No illicit drug use. REVIEW OF SYSTEMS: CONSTITUTIONAL: Denies fever or chills. HEENT: Denies blurred vision, vision changes, or eye pain. Denies hemoptysis ENDOCRINE: Denies heat or cold intolerance. CARDIOVASCULAR: Denies chest pain or pressure. RESPIRATORY: No shortness of breath. GASTROINTESTINAL: Denies abdominal pain. Denies nausea or vomiting. NEURO: Denies history of seizures. PSYCH: No depression or suicidal ideation HEMATOLOGIC: Denies bleeding disorders. LYMPHATIC: The patient denies any lumps and bumps around the neck. GENITOURINARY: Denies any blood in urine or increased urinary frequency. MUSCULOSKELETAL: Denies myalgias. Denies joint swelling. Denies decreased range of motion beyond patients baseline. SKIN: Denies pruitis. Denies rash. PHYSICAL EXAM: VITAL SIGNS: Reviewed GENERAL: Malnourished. No acute distress. HEENT: Extraocular movements grossly intact. Moist buccal mucosa. Head is atraumatic, normocephalic. Hears conversational speech. No nasal drainage. NECK: Supple without lymphadenopathy. CHEST: Non-labored respirations and equal bilateral excursions. CARDIOVASCULAR: Palpable 2+ radial pulses. ABDOMEN: Soft. Mildly distended. Fluid wave present. Nontender MUSCULOSKELETAL: No clubbing or cyanosis. NEUROLOGIC: No focal or lateralizing signs. Cranial nerves II through XII grossly intact. PSYCH: Alert and oriented to person, place and time. SKIN: Jaundiced LABORATORY DATA: WBC 36.6 hemoglobin 6.7 up to 8.9 platelets 119 Sodium 126 potassium 3.4 creatinine 0.49 Stool for occult blood positive Total bilirubin 4.8 AST 76 ALT 73 Albumin 2.6 IMAGING: ASSESSMENT: 1. Acute GI bleed with acute blood loss anemia 2. Pneumonia 3. CHF 4. Respiratory failure requiring mechanical ventilation and extubation 5. Ascites and history of liver cirrhosis status post paracentesis x 3 6. History of heavy alcohol abuse 7. Jaundice 8. Chronic thrombocytopenia 7. 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 Signing provider agrees with the documented findings, assessment, and plan of care. Past Medical History Past Medical History: No Reported History Additional Past Medical History / Comment(s): Pt admitted to [facility] on 08/05/19 with acute pancreatitis/htn urgency-she signed out AMA to go home and care for her dog (couldn't find anyone to help). Other hx: IBS, bronchitis, ETOH abuse. History of Any Multi-Drug Resistant Organisms: None Reported Past Surgical History: No Surgical Hx Reported Additional Past Surgical History / Comment(s): EGD, colonoscopies. Past Anesthesia/Blood Transfusion Reactions: No Reported Reaction Past Psychological History: Anxiety, Depression Past Alcohol Use History: Daily, Heavy Past Drug Use History: None Reported - Past Family History Father Additional Family Medical History / Comment(s): Father is from [place]. Mother Family Medical History: No Reported History Additional Family Medical History / Comment(s): Mother is alive with history of asthma, pancreatitis, alchohol abuse. Patient does not have any brothers, sisters, children. Medications and Allergies Home Medications Medication Instructions Recorded Confirmed Type PARoxetine HCL [Paxil] 40 mg PO HS 05/13/18 10/08/23 History ALPRAZolam [Xanax] 1 mg PO HS 08/29/20 10/08/23 History Azithromycin [Zithromax] 500 mg PO DAILY 10/08/23 10/08/23 History Furosemide [Lasix] 20 mg PO HS 10/08/23 10/08/23 History Pantoprazole Sodium [Protonix] 80 mg PO DAILY 10/08/23 10/08/23 History Purezzz 1 tab PO HS 10/08/23 10/08/23 History Spironolactone [Aldactone] 50 mg PO DAILY 10/08/23 10/08/23 History diphenhydrAMINE HCL [Benadryl] 25 mg PO HS 10/08/23 10/08/23 History guaiFENesin [Mucinex] 600 mg PO Q12H 10/08/23 10/08/23 History predniSONE [Deltasone] 40 mg PO DAILY 10/08/23 10/08/23 History Allergies Allergy/AdvReac Type Severity Reaction Status Date / Time No Known Allergies Allergy Verified 10/08/23 22:08 Surgical - Exam Vital Signs Pulse Resp Pulse Ox 89 24 98 10/08/23 20:27 10/08/23 20:27 10/08/23 20:27 Results - Labs 10/27/23 08:06 10/27/23 08:06 Abnormal Lab Results - Last 24 Hours (Table) 10/26/23 10/26/23 10/26/23 Range/Units 16:07 16:28 19:49 WBC (3.8-10.6) k/uL RBC (3.80-5.40) m/uL Hgb (11.4-16.0) gm/dL Hct (34.0-46.0) % MCV (80.0-100.0) fL MCHC (31.0-37.0) g/dL RDW (11.5-15.5) % Plt Count (150-450) k/uL Neutrophils # (1.3-7.7) k/uL Macrocytosis Sodium (137-145) mmol/L Potassium (3.5-5.1) mmol/L Chloride (98-107) mmol/L BUN (7-17) mg/dL Creatinine (0.52-1.04) mg/dL Glucose (74-99) mg/dL POC Glucose (mg/dL) 46 L 65 L 140 H (70-110) mg/dL Calcium (8.4-10.2) mg/dL Total Bilirubin (0.2-1.3) mg/dL Conjugated Bilirubin (0.0-0.3) mg/dL Unconjugated Bilirubin (0.0-1.1) mg/dL Delta Bilirubin (0.0-0.2) mg/dL AST (14-36) U/L ALT (4-34) U/L Alkaline Phosphatase (38-126) U/L Total Protein (6.3-8.2) g/dL Albumin (3.5-5.0) g/dL Procalcitonin (0.02-0.09) ng/mL 10/27/23 10/27/23 10/27/23 Range/Units 05:56 08:06 08:06 WBC 25.4 H (3.8-10.6) k/uL RBC 2.71 L (3.80-5.40) m/uL Hgb 8.9 L (11.4-16.0) gm/dL Hct 28.8 L (34.0-46.0) % MCV 106.3 H (80.0-100.0) fL MCHC 30.7 L (31.0-37.0) g/dL RDW 23.1 H (11.5-15.5) % Plt Count 92 L (150-450) k/uL Neutrophils # 23.2 H (1.3-7.7) k/uL Macrocytosis Marked A Sodium (137-145) mmol/L Potassium (3.5-5.1) mmol/L Chloride (98-107) mmol/L BUN (7-17) mg/dL Creatinine (0.52-1.04) mg/dL Glucose (74-99) mg/dL POC Glucose (mg/dL) 167 H (70-110) mg/dL Calcium (8.4-10.2) mg/dL Total Bilirubin (0.2-1.3) mg/dL Conjugated Bilirubin (0.0-0.3) mg/dL Unconjugated Bilirubin (0.0-1.1) mg/dL Delta Bilirubin (0.0-0.2) mg/dL AST (14-36) U/L ALT (4-34) U/L Alkaline Phosphatase (38-126) U/L Total Protein (6.3-8.2) g/dL Albumin (3.5-5.0) g/dL Procalcitonin 0.50 H (0.02-0.09) ng/mL 10/27/23 10/27/23 Range/Units 08:06 11:21 WBC (3.8-10.6) k/uL RBC (3.80-5.40) m/uL Hgb (11.4-16.0) gm/dL Hct (34.0-46.0) % MCV (80.0-100.0) fL MCHC (31.0-37.0) g/dL RDW (11.5-15.5) % Plt Count (150-450) k/uL Neutrophils # (1.3-7.7) k/uL Macrocytosis Sodium 125 L (137-145) mmol/L Potassium 2.9 L (3.5-5.1) mmol/L Chloride 93 L (98-107) mmol/L BUN 20 H (7-17) mg/dL Creatinine 0.47 L (0.52-1.04) mg/dL Glucose 159 H (74-99) mg/dL POC Glucose (mg/dL) 204 H (70-110) mg/dL Calcium 7.5 L (8.4-10.2) mg/dL Total Bilirubin 4.9 H (0.2-1.3) mg/dL Conjugated Bilirubin 0.7 H (0.0-0.3) mg/dL Unconjugated Bilirubin 2.6 H (0.0-1.1) mg/dL Delta Bilirubin 1.6 H (0.0-0.2) mg/dL AST 64 H (14-36) U/L ALT 72 H (4-34) U/L Alkaline Phosphatase 134 H (38-126) U/L Total Protein 6.1 L (6.3-8.2) g/dL Albumin 2.5 L (3.5-5.0) g/dL Procalcitonin (0.02-0.09) ng/mL Diabetes panel 10/27/23 Range/Units 08:06 Sodium 125 L (137-145) mmol/L Potassium 2.9 L (3.5-5.1) mmol/L Chloride 93 L (98-107) mmol/L Carbon Dioxide 24 (22-30) mmol/L BUN 20 H (7-17) mg/dL Creatinine 0.47 L (0.52-1.04) mg/dL Glucose 159 H (74-99) mg/dL Calcium 7.5 L (8.4-10.2) mg/dL AST 64 H (14-36) U/L ALT 72 H (4-34) U/L Alkaline Phosphatase 134 H (38-126) U/L Total Protein 6.1 L (6.3-8.2) g/dL Albumin 2.5 L (3.5-5.0) g/dL Calcium panel 10/27/23 Range/Units 08:06 Calcium 7.5 L (8.4-10.2) mg/dL Albumin 2.5 L (3.5-5.0) g/dL Pituitary panel 10/27/23 Range/Units 08:06 Sodium 125 L (137-145) mmol/L Potassium 2.9 L (3.5-5.1) mmol/L Chloride 93 L (98-107) mmol/L Carbon Dioxide 24 (22-30) mmol/L BUN 20 H (7-17) mg/dL Creatinine 0.47 L (0.52-1.04) mg/dL Glucose 159 H (74-99) mg/dL Calcium 7.5 L (8.4-10.2) mg/dL Adrenal panel 10/27/23 Range/Units 08:06 Sodium 125 L (137-145) mmol/L Potassium 2.9 L (3.5-5.1) mmol/L Chloride 93 L (98-107) mmol/L Carbon Dioxide 24 (22-30) mmol/L BUN 20 H (7-17) mg/dL Creatinine 0.47 L (0.52-1.04) mg/dL Glucose 159 H (74-99) mg/dL Calcium 7.5 L (8.4-10.2) mg/dL Total Bilirubin 4.9 H (0.2-1.3) mg/dL AST 64 H (14-36) U/L ALT 72 H (4-34) U/L Alkaline Phosphatase 134 H (38-126) U/L Total Protein 6.1 L (6.3-8.2) g/dL Albumin 2.5 L (3.5-5.0) g/dL
--- NOTE | 2023-10-27 15:50 | P.PN ---
Subjective Progress Note Date: 10/27/23 CHIEF COMPLAINT: Pneumonia HISTORY OF PRESENT ILLNESS: Surgical service following in regards to anemia and GI bleed. Patient initially scheduled for EGD today but this was canceled due to OR scheduling and hyponatremia. Patient has had no further bleeding at this time. Denies any abdominal pain. Mildly tachycardic. Afebrile. WBC 25.4 Hgb 8.9 platelets 92 sodium is 125 potassium is 2.9 creatinine 0.47 total bili 4.9 elevated LFTs PHYSICAL EXAM: VITAL SIGNS: Reviewed. GENERAL: no acute distress. HEENT: Scleral icterus ABDOMEN: Soft. Distended. With fluid wave nontender. NEUROLOGIC: Awake and alert Skin: Jaundiced ASSESSMENT: 1. Acute GI bleed with acute blood loss anemia 2. Pneumonia 3. CHF 4. Respiratory failure requiring mechanical ventilation and extubation 5. Ascites and history of liver cirrhosis status post paracentesis x 3 6. History of heavy alcohol abuse 7. Jaundice 8. Chronic thrombocytopenia 7. Severe protein calorie malnutrition 8. Hypokalemia 9. Hyponatremia PLAN: -EGD rescheduled for 10/30/[address] Rojas -Resume regular diet -Continue IV Protonix -Continue to monitor hemoglobin -Continue to monitor for any signs or symptoms of bleeding -Continue to correct electrolytes Physician [employer] note has been reviewed by physician. Signing provider agrees with the documented findings, assessment, and plan of care. Objective - Vital Signs Vital signs: Vital Signs Temp 97.9 F 10/27/23 08:00 Pulse 93 10/27/23 08:00 Resp 18 10/27/23 08:00 BP 113/62 10/27/23 08:00 Pulse Ox 92 L 10/27/23 09:40 FiO2 50 10/18/23 14:10 Intake & Output 10/26/23 10/27/23 10/27/23 18:59 06:59 18:59 Weight 37 kg 40 kg 40 kg Other: Voiding Method Bedpan Diaper Diaper # Voids 2 0 # Bowel Movements 4 0 ABP, PAP, CO, CI - Last Documented Arterial Blood Pressure 111/50 - Labs CBC & Chem 7: 10/27/23 08:06 10/27/23 08:06 Labs: Abnormal Lab Results - Last 24 Hours (Table) 10/26/23 10/26/23 10/26/23 Range/Units 11:01 11:31 16:07 WBC 36.6 H (3.8-10.6) k/uL RBC 2.59 L (3.80-5.40) m/uL Hgb 8.9 L (11.4-16.0) gm/dL Hct 27.3 L (34.0-46.0) % MCV 105.2 H (80.0-100.0) fL MCHC (31.0-37.0) g/dL RDW 24.5 H (11.5-15.5) % Plt Count 119 L (150-450) k/uL Neutrophils # 33.2 H (1.3-7.7) k/uL Monocytes # 1.1 H (0-1.0) k/uL Macrocytosis Marked A Sodium (137-145) mmol/L Potassium (3.5-5.1) mmol/L Chloride (98-107) mmol/L BUN (7-17) mg/dL Creatinine (0.52-1.04) mg/dL Glucose (74-99) mg/dL POC Glucose (mg/dL) 177 H 46 L (70-110) mg/dL Calcium (8.4-10.2) mg/dL Total Bilirubin (0.2-1.3) mg/dL Conjugated Bilirubin (0.0-0.3) mg/dL Unconjugated Bilirubin (0.0-1.1) mg/dL Delta Bilirubin (0.0-0.2) mg/dL AST (14-36) U/L ALT (4-34) U/L Alkaline Phosphatase (38-126) U/L Total Protein (6.3-8.2) g/dL Albumin (3.5-5.0) g/dL 10/26/23 10/26/23 10/27/23 Range/Units 16:28 19:49 05:56 WBC (3.8-10.6) k/uL RBC (3.80-5.40) m/uL Hgb (11.4-16.0) gm/dL Hct (34.0-46.0) % MCV (80.0-100.0) fL MCHC (31.0-37.0) g/dL RDW (11.5-15.5) % Plt Count (150-450) k/uL Neutrophils # (1.3-7.7) k/uL Monocytes # (0-1.0) k/uL Macrocytosis Sodium (137-145) mmol/L Potassium (3.5-5.1) mmol/L Chloride (98-107) mmol/L BUN (7-17) mg/dL Creatinine (0.52-1.04) mg/dL Glucose (74-99) mg/dL POC Glucose (mg/dL) 65 L 140 H 167 H (70-110) mg/dL Calcium (8.4-10.2) mg/dL Total Bilirubin (0.2-1.3) mg/dL Conjugated Bilirubin (0.0-0.3) mg/dL Unconjugated Bilirubin (0.0-1.1) mg/dL Delta Bilirubin (0.0-0.2) mg/dL AST (14-36) U/L ALT (4-34) U/L Alkaline Phosphatase (38-126) U/L Total Protein (6.3-8.2) g/dL Albumin (3.5-5.0) g/dL 10/27/23 10/27/23 10/27/23 Range/Units 08:06 08:06 11:21 WBC 25.4 H (3.8-10.6) k/uL RBC 2.71 L (3.80-5.40) m/uL Hgb 8.9 L (11.4-16.0) gm/dL Hct 28.8 L (34.0-46.0) % MCV 106.3 H (80.0-100.0) fL MCHC 30.7 L (31.0-37.0) g/dL RDW 23.1 H (11.5-15.5) % Plt Count 92 L (150-450) k/uL Neutrophils # 23.2 H (1.3-7.7) k/uL Monocytes # (0-1.0) k/uL Macrocytosis Marked A Sodium 125 L (137-145) mmol/L Potassium 2.9 L (3.5-5.1) mmol/L Chloride 93 L (98-107) mmol/L BUN 20 H (7-17) mg/dL Creatinine 0.47 L (0.52-1.04) mg/dL Glucose 159 H (74-99) mg/dL POC Glucose (mg/dL) 204 H (70-110) mg/dL Calcium 7.5 L (8.4-10.2) mg/dL Total Bilirubin 4.9 H (0.2-1.3) mg/dL Conjugated Bilirubin 0.7 H (0.0-0.3) mg/dL Unconjugated Bilirubin 2.6 H (0.0-1.1) mg/dL Delta Bilirubin 1.6 H (0.0-0.2) mg/dL AST 64 H (14-36) U/L ALT 72 H (4-34) U/L Alkaline Phosphatase 134 H (38-126) U/L Total Protein 6.1 L (6.3-8.2) g/dL Albumin 2.5 L (3.5-5.0) g/dL
[2023-10-27 16:24] LABS: Glucose,Whole Blood 149 mg/dL (70-110)
[2023-10-27 17:31] LABS: Magnesium 1.8 mg/dL (1.6-2.3); Potassium 3.3 mmol/L (3.5-5.1)
--- NOTE | 2023-10-27 18:09 | CDI ---
Documentation Clarification Form Date: From: Gisela Cade Phone: [phone] Admit Date: 10/08/2023 11:59:00 PM Patient Name: Nicole Magallanes Visit Number: [id number] Discharge Date: ATTENTION: The Clinical Documentation Specialists (CDI) and [facility] Coding Staff appreciate your assistance in clarifying documentation. Please respond to the clarification below the line at the bottom and electronically sign. The CDI & [facility] Coding staff will review the response and follow-up if needed. Please note: Queries are made part of the Legal Health Record. If you have any questions, please contact the author of this message via ITS. Dr. Cisco Varela Encephalopathy is documented in the Progress Note dated 10/27. Additional clarification regarding the type of encephalopathy is requested. 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 This is consistent with her chronic liver disease." "patient remains jaundiced, and the patient is currently jaundiced, very much cachectic and weak with a body mass index of 14.1." "Chronic hyponatremia related to liver cirrhosis" - Per Progress Note on 10/27 10/27 WBC: 25.4 Sodium: 125 Potassium: 2.9, 3.3 Chloride: 93 Total Bilirubin: 4.9 AST: 64 ALT 72 Procalcitonin: 0.50 Treatment: Per Progress Note on 10/27 "remains on lactulose 10 mg p.o. twice daily. She remains on Aldactone. She remains on Lasix 40 mg IV every 12 hours." - Per Progress Note on 10/27 Please clarify the type of encephalopathy, if known: [ ] Metabolic Encephalopathy [ x ] Hepatic Encephalopathy [ ] Other, please specify [ ] Unable to determine MTDD
[2023-10-27 20:05] LABS: Glucose,Whole Blood 116 mg/dL (70-110)
[2023-10-27] MEDS: INSULIN DETEMIR (LEVEMIR) 100 UNIT/ML SYR SQ SCH (21:00)
[2023-10-27] MEDS: MAGNESIUM SULFATE-D5W PMX 1 GM in DEXTROSE/WATER 1 100ML.BAG IVPB ONE (21:00)
[2023-10-27] MEDS: POTASSIUM CHLORIDE ER 20 MEQ TAB.ER PO STA (21:00)
[2023-10-28 07:22] LABS: Glucose,Whole Blood 213 mg/dL (70-110)
[2023-10-28] MEDS: SPIRONOLACTONE 25 MG TAB PO SCH (08:01)
[2023-10-28 08:57] LABS: Anisocytosis Moderate; HCT 26.6 % (34.0-46.0); HGB 8.3 gm/dL (11.4-16.0); Hypochromasia Marked; MCH 33.4 pg (25.0-35.0); MCHC 31.1 g/dL (31.0-37.0); MCV 107.5 fL (80.0-100.0); Macrocytosis Marked; Mean Platelet Volume 11.9; Poikilocytosis Slight; RBC 2.47 m/uL (3.80-5.40); RDW 22.6 % (11.5-15.5); WBC 26.6 k/uL (3.8-10.6)
[2023-10-28 09:06] LABS: Platelet Count 77 k/uL (150-450)
[2023-10-28] MEDS: LACTATED RINGERS 1,000 ML IV SCH (10:43)
--- NOTE | 2023-10-28 11:27 | P.PN ---
Subjective Progress Note Date: 10/28/23 On 10/23/2023, the patient is being seen for a follow-up. The patient is known to have liver cirrhosis and chronic pancreatitis. The patient is a recovering alcoholic and she quit drinking approximately 5 years ago. The patient also has history of smoking, chronic anxiety and depression and acid reflux. The patient presented to to the hospital because of multilobar pneumonia and hypoxic respiratory failure. The patient had bilateral patchy airspace disease. The patient was treated in the intensive care unit. During the course of her ICU stay, the patient developed also worsening pulmonary edema in addition to underlying pneumonia. The patient had to be intubated and placed on mechanical ventilator. Note that she also has CHF with LV dysfunction and ejection fraction of 30%. No significant valvular abnormalities. She was treated with IV Zosyn and she was also placed on diuretics. The viral panel was negative. Her proBNP level was above 2000. The procalcitonin level was at 0.6. The patient remains on a mechanical ventilator and she was gradually weaned off the pressors as the patient required pressors to treat her sepsis. She was ultimately extubated on 09/18/2023 and currently she is on the medical floor maintained on 2 L of oxygen by nasal cannula. The most recent chest x-ray was done on 10/20/2023 that showed right middle lobe and left lower lobe airspace disease with hazy appearance of the lungs compatible with pneumonia. The patient also has abdominal distention and ascites. Ultrasound the abdomen that was done showed moderate degree of ascites and the patient underwent a paracentesis today with a total of 4.2 L of fluid removed. The patient remains on DuoNeb nebulized treatments [id number]. The patient is also on Lasix 40 mg IV every 12 hours. The patient completed her antibiotic course. Sputum culture from 10/12/2022 was positive for Marleni. The patient is white cell count of 29 with a hemoglobin 7.6 and a platelet count of 98. Sodium is at 127, BUN is at 30 creatinine 0.5 and a potassium level of 3.8. On today's evaluation after 02/2024, the patient sitting up on the chair. No significant respiratory distress and the patient is currently on room air oxygen. He is on Lasix 40 mg IV every 12 hours. The patient is in negative fluid balanceAnd the patient had a repeat chest x-ray that showed improving and then consistent changes bilaterally and resolving pulm vascular congestion. Also, the bibasilar pulm infiltrates also improved. The patient has no specific complaints. The white cell count is still elevated at 28 and this needs to be monitored. Hemoglobin has dropped down to 6.7 and the platelet count is at 120. No evidence of any GI bleeding at this point in time. Sodium levels at 125, BUN is at 29 with a creatinine of 0.6 and a potassium level at 3.4. The patient has no signs of encephalopathy. She is communicating. Denies having any chest pain. No nausea or vomiting or emesis at this point in time. She remains on Lovenox 40 mg subcu for DVT prophylaxis. She remains also on IV Solu-Medrol which will be discontinued today. On 10/25/2023, the patient is being seen for a follow-up. She is resting comfortably in bed. As noted yesterday, the patient had a drop in hemoglobin at 6.7 yesterday and the patient was given a unit of packed RBC. Subsequent hemoglobin came back To 9.4. However, it was noted that the patient was having some melanotic stool today and there is a concern for an ongoing GI bleeding. The white cell count today is elevated at 32 and a platelet count is 839. No hemodynamic instability. BUN is at 26 with a creatinine of 0.6. Sodium levels at 129. The patient on Lovenox for DVT prophylaxis. The patient remains on IV Lasix. The patient is also on IV Solu-Medrol. I took the opportunity to stop the Lasix and the Lovenox. I also suggested to discontinue the IV Solu-Medrol as the patient has no signs of bronchospasm or wheezing. The patient is currently on room air oxygen. She is slightly tachycardic and she is hemodynamically stable. The patient is going to be transferred to a monitored bed regarding the possibility of GI bleeding. Her current bilirubin is at 5.6 with a AST of 69 ALT of 78 and total protein is at 6.4 with an albumin of 2.7. She is lethargic and arousable and she is communicating. No hematemesis. On today's evaluation of 10/26/2023, I am seeing the patient for a follow-up. The patient is doing well. No specific complaints. No further witnessed episodes of GI bleeding. The patient got transferred to telemetry unit for a suspicious episode of GI bleed that was mentioned yesterday. The patientHad a follow-up CBC today and the hemoglobin currently is at 8.9 which is essentially stable compared to yesterday. The white cell count remains elevated. The patient's platelet count is also stable at 119. Sodium level was 126 with a potassium level of 3.4 BUN is at 26 with a creatinine of 0.4. The liver function tests are minimally elevated with an AST of 76, ALT of 73 and the most recent bilirubin level was at 3.1. She is resting comfortably in bed and the patient is currently on room air oxygen with a pulse ox of 94%. The patient is tachycardic. She does have abdominal ascites. I discontinued the Lasix yesterday. I also discontinued IV Solu-Medrol. The patient is currently on no specific antibiotic coverage. She was restarted back on a combination of Lasix and Aldactone as of this morning. This was done by the medical team. She is arousable and she is alert. When left unstimulated, she will go back into sleep. She is also on IV Protonix. On today's evaluation of 10/27/2023, seen the patient for a follow-up. The patient is doing well on room air oxygen. No evidence of any GI bleeding over the past 24 hours and the patient denies having any Bright red blood per rectum or melanotic stool. Meanwhile, the patient's hemoglobin is at 8.9 which is essentially stable compared to yesterday. Her platelet count is at 92. The white cell count is dropped down to 25 compared to 36 from yesterday. Rest of the electrolytes are essentially comparable with a potassium level of 2.9 and his sodium level is 125. BUN is at 20 with a creatinine of 0.4. LFTs are abnormal. This is consistent with her chronic liver disease. The patient otherwise has no other new complaints. She is awake and alert. She does have some mild degree of encephalopathy with chronic tiredness and sleepiness. She remains on lactulose 10 mg p.o. twice daily. She remains on Aldactone. She remains on Lasix 40 mg IV every 12 hours. On 10/28/2023, the patient is stable. No evidence of any GI bleeding over the past 24 to 48 hours. Meanwhile, the patient's Hemoglobin stable at 8.3 with a white cell count of 26 and a platelet count of 77. Awake and alert. No obvious signs of encephalopathy at this point in time. The patient's is clinically stable and hemodynamically stable at this point. The patient continues to be on Lasix 40 mg IV every 12 hours and the patient is also on Aldactone 25 mg p.o. daily. Rest of the medications remain unchanged. Oral intake is quite diminished. No focal neurological deficits. No signs of any encephalopathy. She is chronically fatigued and sleepy. Objective - Vital Signs Vital signs: Vital Signs Temp 97.8 F 10/28/23 03:22 Pulse 117 H 10/28/23 03:22 Resp 16 10/28/23 03:22 BP 101/55 10/28/23 03:22 Pulse Ox 100 10/28/23 03:22 FiO2 50 10/18/23 14:10 Intake & Output 10/27/23 10/28/23 10/28/23 18:59 06:59 18:59 Weight 40 kg Other: Voiding Method Diaper Diaper # Voids 2 1 # Bowel Movements 2 1 ABP, PAP, CO, CI - Last Documented Arterial Blood Pressure 111/50 - Exam GENERAL EXAM: Alert, pleasant 48-year-old female, on room air oxygen, resting in bed, in no apparent distress. The patient remains jaundiced, and the patient is currently jaundiced, very much cachectic and weak with a body mass index of 14.1. HEAD: Normocephalic. EYES: Normal reaction of pupils, equal size. NOSE: Clear with pink turbinates. THROAT: No erythema or exudates. NECK: No masses, no JVD. CHEST: No chest wall deformity. LUNGS: Equal air entry with no crackles, wheeze, rhonchi or dullness. CVS: S1 and S2 normal with no audible murmur, regular rhythm. ABDOMEN: Edmar distended, positive fluid wave, normal bowel sounds, no guarding or rigidity. SPINE: No scoliosis or deformity SKIN: No rashes CENTRAL NERVOUS SYSTEM: No focal deficits, tone is normal in all 4 extremities. EXTREMITIES: There is 1+ peripheral edema. No clubbing, no cyanosis. Periphera l pulses are intact. - Labs CBC & Chem 7: 10/28/23 08:09 10/27/23 16:37 Labs: Abnormal Lab Results - Last 24 Hours (Table) 10/27/23 10/27/23 10/27/23 Range/Units 08:06 08:06 08:06 WBC 25.4 H (3.8-10.6) k/uL RBC 2.71 L (3.80-5.40) m/uL Hgb 8.9 L (11.4-16.0) gm/dL Hct 28.8 L (34.0-46.0) % MCV 106.3 H (80.0-100.0) fL MCHC 30.7 L (31.0-37.0) g/dL RDW 23.1 H (11.5-15.5) % Plt Count 92 L (150-450) k/uL Neutrophils # 23.2 H (1.3-7.7) k/uL Macrocytosis Marked A Sodium 125 L (137-145) mmol/L Potassium 2.9 L (3.5-5.1) mmol/L Chloride 93 L (98-107) mmol/L BUN 20 H (7-17) mg/dL Creatinine 0.47 L (0.52-1.04) mg/dL Glucose 159 H (74-99) mg/dL POC Glucose (mg/dL) (70-110) mg/dL Calcium 7.5 L (8.4-10.2) mg/dL Total Bilirubin 4.9 H (0.2-1.3) mg/dL Conjugated Bilirubin 0.7 H (0.0-0.3) mg/dL Unconjugated Bilirubin 2.6 H (0.0-1.1) mg/dL Delta Bilirubin 1.6 H (0.0-0.2) mg/dL AST 64 H (14-36) U/L ALT 72 H (4-34) U/L Alkaline Phosphatase 134 H (38-126) U/L Total Protein 6.1 L (6.3-8.2) g/dL Albumin 2.5 L (3.5-5.0) g/dL Procalcitonin 0.50 H (0.02-0.09) ng/mL 10/27/23 10/27/23 10/27/23 Range/Units 11:21 16:20 16:37 WBC (3.8-10.6) k/uL RBC (3.80-5.40) m/uL Hgb (11.4-16.0) gm/dL Hct (34.0-46.0) % MCV (80.0-100.0) fL MCHC (31.0-37.0) g/dL RDW (11.5-15.5) % Plt Count (150-450) k/uL Neutrophils # (1.3-7.7) k/uL Macrocytosis Sodium (137-145) mmol/L Potassium 3.3 L (3.5-5.1) mmol/L Chloride (98-107) mmol/L BUN (7-17) mg/dL Creatinine (0.52-1.04) mg/dL Glucose (74-99) mg/dL POC Glucose (mg/dL) 204 H 149 H (70-110) mg/dL Calcium (8.4-10.2) mg/dL Total Bilirubin (0.2-1.3) mg/dL Conjugated Bilirubin (0.0-0.3) mg/dL Unconjugated Bilirubin (0.0-1.1) mg/dL Delta Bilirubin (0.0-0.2) mg/dL AST (14-36) U/L ALT (4-34) U/L Alkaline Phosphatase (38-126) U/L Total Protein (6.3-8.2) g/dL Albumin (3.5-5.0) g/dL Procalcitonin (0.02-0.09) ng/mL 10/27/23 10/28/23 Range/Units 20:03 07:20 WBC (3.8-10.6) k/uL RBC (3.80-5.40) m/uL Hgb (11.4-16.0) gm/dL Hct (34.0-46.0) % MCV (80.0-100.0) fL MCHC (31.0-37.0) g/dL RDW (11.5-15.5) % Plt Count (150-450) k/uL Neutrophils # (1.3-7.7) k/uL Macrocytosis Sodium (137-145) mmol/L Potassium (3.5-5.1) mmol/L Chloride (98-107) mmol/L BUN (7-17) mg/dL Creatinine (0.52-1.04) mg/dL Glucose (74-99) mg/dL POC Glucose (mg/dL) 116 H 213 H (70-110) mg/dL Calcium (8.4-10.2) mg/dL Total Bilirubin (0.2-1.3) mg/dL Conjugated Bilirubin (0.0-0.3) mg/dL Unconjugated Bilirubin (0.0-1.1) mg/dL Delta Bilirubin (0.0-0.2) mg/dL AST (14-36) U/L ALT (4-34) U/L Alkaline Phosphatase (38-126) U/L Total Protein (6.3-8.2) g/dL Albumin (3.5-5.0) g/dL Procalcitonin (0.02-0.09) ng/mL Assessment and Plan Plan: Acute hypoxic respiratory failure secondary to acute bilateral multilobar pneumonia as well as some fluid overload/CHF, status post intubation and mechanical ventilation on October 10, 2023. S/P successful extubation on October 18, 2023. The patient remains extubated on room air oxygen. Follow-up chest x- ray from today shows improvement in the bibasilar pulm infiltrates and the pulmonary vascular congestion. The patient is responding nicely to diuretics. The patient is currently on room air oxygen. The patient remains on a combination of Lasix and Aldactone. Acute pulmonary edema, cardiogenic in origin, with an ejection fraction of 20%, patient has been adequately diuresed with subsequent improvement in the chest x- ray and oxygenation. Acute exacerbation of chronic obstructive pulmonary disease secondary to above, recovered Ascites, status post paracentesis abdominis, underwent paracentesis on 10/23/2023 with a total of 4.2 L of ascitic fluid being drained. Noted the patient during the course of her illness. Also another paracentesis done 10/17/2023. Chronic and ongoing tobacco dependence History of heavy alcohol abuse however quit 5 years ago History of cirrhosis secondary to above History of chronic pancreatitis secondary to above History of anxiety/depression Jaundice to the bilirubin level remains elevated with disturbed LFTs Profound motor weakness, generalized secondary to above-mentioned comorbidities Chronic hyponatremia related to liver cirrhosis Diabetes mellitus secondary to above maintained on Levemir insulin 10 units daily along with sliding scale coverage Acute on top of chronic anemia hemoglobin is dropped down to 6.7 had subsequently improved and is currently up to 8.9 Chronic thrombocytopenia related to liver disease, platelet count are stable Leukocytosis, improving Plan: Hemoglobin stable for now, and the hemoglobin stable at 8. 3 Continue Protonix 80 mg IV every 24 hours. Monitor blood pressure and hemodynamics Resume IV Lasix 40 mg every 12 hours in combination with Aldactone Monitor the white cell count, white cell count is improving Patient currently is on no antibiotic coverage Monitor hemoglobin, hemoglobin stable for now Watch for any further signs of GI bleeding and [facility] GI services regarding GI bleeding. Will continue to follow.
[2023-10-28 11:47] LABS: Glucose,Whole Blood 132 mg/dL (70-110)
[2023-10-28 13:26] LABS: African American GFR (CKD) >90 (>60 ml/min/1.73 sqM); Anion Gap 7 mmol/L; Blood Urea Nitrogen 13 mg/dL (7-17); Calcium 7.1 mg/dL (8.4-10.2); Carbon Dioxide 26 mmol/L (22-30); Chloride 96 mmol/L (98-107); Glucose 106 mg/dL (74-99); Non-African American GFR(CKD) >90 (>60 ml/min/1.73 sqM); Sodium 129 mmol/L (137-145)
[2023-10-28 13:37] LABS: Potassium 2.7 mmol/L (3.5-5.1)
[2023-10-28] MEDS: POTASSIUM CHLORIDE ER 20 MEQ TAB.ER PO SCH (13:47)
[2023-10-28] MEDS: POTASSIUM CHLORIDE 20 MEQ in WATER FOR INJECTION 1 100ML.BAG IVPB SCH (13:53)
[2023-10-28 16:39] LABS: Glucose,Whole Blood 237 mg/dL (70-110)
[2023-10-28] MEDS: traMADol 50 MG TAB PO PRN (16:53)
--- NOTE | 2023-10-28 17:51 | P.PN ---
Subjective Patient is a 48-year-old female with a past medical history of severe alcohol abuse, quit 5 years ago, alcoholic liver cirrhosis and is on follow-up with her packager machine at [facility], IBS, anxiety/depression and presents to ER with complaints of worsening shortness of breath. Patient states that she has been having shortness of breath for the past week and a half and did get worse in the last few days. Patient tried using her breathing treatments at home but did not get improvement. Patient was recently given antibiotics and prednisone by her physician. She has been increasingly weak and not feeling well. Patient presented to ER for evaluation. He was also complaining of cough without any sputum production. Also complaining of chest tightness and anxiety. Denies any leg swelling. No nausea or vomiting. Patient is also having increased abdominal girth. No prior history of paracentesis as per patient. Denies any fever at home. On admission patient was tachycardic and tachypneic and pulse ox 80% on room air. Currently requiring 8 L of oxygen via nasal cannula. CT of the abdomen pelvis showed patchy bilateral airspace consolidation consistent with multilobar pneumonia. Hepatic steatosis, abdominal ascites. Wa ll thickening of small bowel correlate for mild enteritis versus spontaneous bacterial peritonitis. CTA chest showed no PE. Patchy bilateral airspace consolidation consistent with multilobar pneumonia. Chest x-ray showed similar multifocal airspace opacities. Laboratory data showed WBC 16.5 hemoglobin 10.0 MCV 102.4 and platelets 188 and neutrophils 14.4 INR 1.7, D-dimer 2.8 Sodium 132 potassium 3.7 chloride 95 bicarbonate 24 BUN 18 and creatinine 0.84 and blood sugar 270 and lactic acid 7.0 on admission, calcium 8.1, total bilirubin level is 4.6 AST 113 ALT 68 and alk phos 208 Troponin 0.012 and proBNP 2040 and albumin 3.0 Influenza A, B, RSV and COVID-19 PCR not detected. 10/10/2023 Patient was transferred to MICU. Overnight patient's respiratory status worsened due to multifocal pneumonia and also patient is receiving fluids at 100 cc/h due to sepsis. Patient was intubated and is on assist-control. Patient is currently requiring pressor support. Chest x-ray this morning showed severe bilateral pulmonary infiltration which has worsened. Was given IV Lasix. 2D echocardiogram showed dilated LV and severe LV systolic dysfunction. Ejection fraction 30 to 35%. Laboratory showed WBC worsened to 26.6 hemoglobin 10.3 and platelets 190 Sodium 139 potassium 3.6 chloride 108 bicarb is 20 BUN 15 and creatinine 0.64 blood sugar 206 and A1c 6.8 lactic acid 5.4 this morning. Liver enzymes are elevated. Cardiology and pulmonary is on board. Patient is being continued on antibiotics changed to Zosyn. Procalcitonin level is elevated at 0.61. 10/11/2023 Patient is in the MICU. Intubated and sedated. On mechanical ventilator. Patient is also requiring pressor support with Levophed and also on dobutamine drip. Urine output remains low. Patient has been afebrile. Nutrition via NG tube. Patient was also started on IV hydration with normal saline at 75 cc/h. Chest x-ray showed multifocal airspace opacities are not significantly changed. Support tubes and proper positioning. Patient remains on antibiotics in the form of Zosyn. 2D echocardiogram showed left ventricular ejection fraction 30 to 35%. Mild right ventricular dilatation. Trace pericardial effusion and pleural effusion was identified. Laboratory data showed WBC 24.9 hemoglobin 9.6 and platelets 187 Sodium 137 potassium 4.2 chloride 102 bicarb is 26 BUN 25 and creatinine 1.1 and blood sugar 264. Patient is scheduled for paracentesis tomorrow. Blood cultures negative so far. Cardiology and pulmonary is on board. 10/12/2023 Patient is in the MICU. Remains intubated and sedated. On assist-control with respiratory of 20 tidal volume 350 and FiO2 40% and PEEP of 10. Continue to be on vasopressin and norepinephrine. Patient was also started on IV hydration with normal saline at 75 cc/h. Urine output is marginal. Patient remains on antibiotics Zosyn. Repeat chest x-ray this morning showed similar multifocal airspace opacities. Patient was given a dose of IV Lasix. Stable support tubes. Laboratory data showed WBC 24.6 hemoglobin 9.1 and platelets 144 BUN 40 and creatinine 1.09 and blood sugar is elevated at 312. Levemir dose increased to 12 units twice daily and continue with insulin sliding scale. Cardiology and critical care team is on board.Patient is scheduled to go for paracentesis today. 10/13/2023 Patient remains in the MICU. On assist-control with FiO2 35% and PEEP of 10. Tidal volume 350. Currently sedation is off. Chest x-ray showed stable exam mild pulmonary edema. Patient underwent ultrasound-guided paracentesis with 1800 cc clear straw- colored fluid drained. Pathology and culture is pending. Laboratory data showed WBC 25.4 hemoglobin 8.7 and platelets 127 BUN 49 creatinine 1.03 potassium 4.2 and blood sugar 159. Patient is being current on IV Solu-Medrol 60 mg every 6 hourly and is also on antibiotics, Zosyn. 10/14/2023 Patient is a pleasant 48 years old female who presents with bilateral pneumonia with acute hypoxic respiratory failure requiring intubation and mechanical ventilation. CTA of the chest was negative for PE which is done secondary to high d-dimer, CT of the abdomen showing thickened small bowel loops suspicious for enteritis, patient currently covered with Zosyn ProBNP is elevated 2039, chest x-ray showing mild was for congestion and ejection fraction is 30-35% patient is receiving IV Lasix and She Is Intubated. She Is Also on Salmeterol 60 Mg for Possible Acute COPD Exacerbation. Patient on Insulin Levemir 12 Units Twice Daily She Has Decompensated Liver Cirrhosis Status Post Paracentesis on 10/12 Where 1800 ML of Fluid Aspirated Patient today undergoing sedation holiday with propofol was off since yesterday Patient got agitated and she was placed on Precedex as well as IV morphine with little help so far Discussed with the bedside nurse Patient could not tolerate CPAP earlier, currently continued on mechanical ventilation with P5 and FiO2 of 40% Family at bedside 10/15/2023 Patient remains in the ICU intubated and sedated Over the last 2 days she was undergoing sedation holiday and propofol was stopped Today she was more agitated and she was placed back on a propofol Pulmonary level yesterday was 20 but given her worsening mentation we ordered a repeat ammonia level and KUB for abdomen slightly distended She had paracentesis related to her decompensated liver cirrhosis about 3 days ago with 1800 mL of fluid taken out We going to order a KUB but possible patient will require more paracentesis She received 1 dose of IV Lasix Normal saline 75 mL output 250 mL/h She remains on Zosyn and Solu-Medrol 60 mg Discussed with the bedside nurse 10/16/2023 Patient remains in the ICU intubated and sedated Yesterday after on repeat chest x-ray showing pulmonary congestion IV fluids of normal saline 50 mL was stopped and patient was started on IV Lasix 40 mg every 8 hours Repeat chest x-ray this morning testosterone pulmonary congestion, KUB showing nonobstructive pattern most likely patient has ascites related to her liver cirrhosis. Also patient placed on low-dose Lopressor suffers a percent respiratory blood pressure Metoprolol 25 mg 3 times a day per Estimate Clerk This she swelling is on board and patient glucose is controlled. 10/17/2023 Patient is from his ICU sedated and intubated. Today propofol was stopped and patient could follow command Weaning trial is attempting and patient was replaced back on before meals mode because of her tachypnea Also patient is planned to undergo paracentesis so between today and tomorrow for her ascites related to her liver cirrhosis. Extremities without obvious on Medrol 40 mg, Zosyn, IV Lasix 40 mg every 8 hours. 10/18/2023 Patient remains intubated and sedated in the ICU with pulmonary/critical care team followed closely. Patient under going sedation holiday for possible extubation She still has leukocytosis of 24,000, hemoglobin 8.6. IV fluids discontinued Currently on Solu-Medrol 40 mg, Zosyn and Lasix 40 mg 3 times a day. 10/19/2023 Patient is status post extubation today. She is awake alert and family at bedside trying to feed her. She developed a large direct well. She is calm pleasant looks little bit tired. Denies any specific symptoms with no chest pain or dyspnea. Abdomen is mildly distended but soft no tenderness. She remains on IV Solu-Medrol 40 mg twice daily, IV Lasix 40 twice daily. She is not an antibiotic I am resuming the care of the patient Patient awake alert looks relaxed and comfortable in bed She is eating her meal with no difficulty Her abdomen mildly distended She status post paracentesis with 4.2 L of fluid taken out She is mildly tachycardic with a heart attack and 106 Blood pressure 95/59 Sodium on the low side to 127 WBCs 20 9K, patient he has history of chronic leukocytosis since 2019 Hemoglobin stable 7.6. Platelet count 104 INR 1.6. Patient remains on IV salmeterol 40 mg and IV Lasix 40 mg 10/24/2023 Patient awake alert, sitting up in chair, looks pleasant Patient denies any specific symptoms, no dyspnea or chest pain or coughing. Abdominal distention is mild, improvement after paracentesis, no urinary symptoms and her bowel movement is formed. No confusion, no abdominal pain or tenderness. Her fluid overload is improving Actually she has mild hypovolemic hyponatremia today with sodium 125. Hemoglobin dropped to 6.7 and she is going to be given 1 unit of blood transfu jono WBC is elevated at 28,000 which is chronic Chest x-ray showing improvement aeration. please refer to the for report She still on office on Medrol 4 mg twice daily and IV Lasix 40 mg twice daily 10/25/2023 Patient awake and alert Denies specific symptoms, to the risks some diet Abdomen mildly distended Patient had severe anemia yesterday at 6.7 received 1 unit of blood transfusion went up to 9.4 this morning her stool was dark suspicious for GI bleed so we repeated hemoglobin was 8.9. Patient blood pressure is stable but mildly tachycardic. Patient IV Lasix was held. I saw Medrol was held as well as IV Lovenox. Patient continued on IV Protonix, iron pills added We'll check for occult blood in the stool Transfer the patient to [facility], stress UNIT for more close monitoring Consult general surgery team 10/26/2023 Patient awake alert, mentation at baseline, she is somewhat whispering. Denies dyspnea. No abdominal pain or tenderness, abdomen mildly distended but soft No evidence of cellulitis, she has some oozing spots from her right thigh. She had 2 bowel movements which are black in color. Sodium 126 from 125 yesterday most likely hypervolemic hyponatremia Yesterday Lasix 40 mg IV twice a day was stopped, and we going to resume Lasix 40 mg by mouth daily. Also we will add Aldactone small dose Hemoglobin stable 8.9, surgery team are planning for further evaluation, and po ssible scope She was on IV Protonix Pressure is up again the umbilicus her NovoLog 3 units up to 5 units with meals 10/27/2023 Patient awake and alert at baseline, she is calm and relaxed not in distress She's getting lactulose and states she had one to 2 bowel movements yesterday, no blood Vitals stable. Hemoglobin from yesterday was stable, today labs are pending Patient is abdomen is mildly distended and after blood transfusion. She was placed on oral Lasix 40 mg daily and Aldactone 12.5 mg General surgeon on the case and plan for procedure today to check for acute blood loss anemia. She's not on anticoagulation and she is on IV Protonix Dietitian consult for her malnutrition there is no GI service in this facility during this week Patient awake alert, mildly lethargic but she looks comfortable. She is not eating much mainly drinking pop. Patient was encouraged to eat and she was placed on liquid diet with ensure. She status post paracentesis and around 3 L of fluid taken out yesterday Sodium is 129 after she was placed on IV Lasix and Aldactone Hemoglobin stable at 8.3 and she remains on IV Protonix Objective - Vital Signs Vital signs: Vital Signs Temp 97.8 F 10/28/23 08:00 Pulse 118 H 10/28/23 11:25 Resp 16 10/28/23 11:25 BP 98/55 10/28/23 11:25 Pulse Ox 98 10/28/23 11:25 FiO2 50 10/18/23 14:10 Intake & Output 10/27/23 10/28/23 10/28/23 18:59 06:59 18:59 Intake Total 240 Output Total 200 Balance 40 Weight 40 kg Intake: Oral 240 Output: Urine 200 Other: Voiding Method Diaper Diaper External Catheter # Voids 2 1 1 # Bowel Movements 2 1 ABP, PAP, CO, CI - Last Documented Arterial Blood Pressure 111/50 - Exam GENERAL: The patient is alert and oriented x3, not in any acute distress. Well developed, well nourished. HEENT: Pupils are round and equally reacting to light. EOMI. No scleral icterus. No conjunctival pallor. Normocephalic, atraumatic. No pharyngeal erythema. No thyromegaly. CARDIOVASCULAR: S1 and S2 present. No murmurs, rubs, or gallops. PULMONARY: Chest is clear to auscultation, no wheezing , no crackles. -ABDOMEN: Soft, nontender, mildly distended, normoactive bowel sounds. No palpable organomegaly. MUSCULOSKELETAL: No joint swelling or deformity. EXTREMITIES: No cyanosis, clubbing, or pedal edema. NEUROLOGICAL: Gross neurological examination did not reveal any focal deficits. SKIN: No rashes. no petechiae. - Labs CBC & Chem 7: 10/28/23 08:09 10/28/23 12:55 Labs: Abnormal Lab Results - Last 24 Hours (Table) 02/06/1110/27/23 10/27/23 Range/Units 16:20 16:37 20:03 WBC (3.8-10.6) k/uL RBC (3.80-5.40) m/uL Hgb (11.4-16.0) gm/dL Hct (34.0-46.0) % MCV (80.0-100.0) fL RDW (11.5-15.5) % Plt Count (150-450) k/uL Macrocytosis Potassium 3.3 L (3.5-5.1) mmol/L POC Glucose (mg/dL) 149 H 116 H (70-110) mg/dL 10/28/23 10/28/23 10/28/23 Range/Units 07:20 08:09 11:44 WBC 26.6 H (3.8-10.6) k/uL RBC 2.47 L (3.80-5.40) m/uL Hgb 8.3 L (11.4-16.0) gm/dL Hct 26.6 L (34.0-46.0) % MCV 107.5 H (80.0-100.0) fL RDW 22.6 H (11.5-15.5) % Plt Count 77 L (150-450) k/uL Macrocytosis Marked A Potassium (3.5-5.1) mmol/L POC Glucose (mg/dL) 213 H 132 H (70-110) mg/dL Assessment and Plan Assessment: Significant anemia GI bleed, status post one unit of blood transfusion Acute hypoxic respiratory failure secondary to multifocal pneumonia and pulmonary edema. Patient is 8 L high flow oxygen--> intubated on mechanical ventilator. Pulmonary edema likely due to cardiogenic with low ejection fraction 30 to 35%. Acute HFrEF with ejection fraction 30 -45% moderate calorie protein malnutrition Multifocal pneumonia, finished her course of antibioitics Sepsis/septic shock secondary to above. off pressor support COPD with acute exacerbation Lactic acidosis 7.0 on admission Alcoholic liver cirrhosis Ascites Patient is status post paracentesis on 10/13/2023. Hepatic steatosis and hyperbilirubinemia and elevated liver enzymes History of severe alcohol abuse. Quit 5 years ago History of chronic pancreatitis Anxiety/depression Plan: Patient is awake and alert and tolerates diet well on oral lasix and aldacotone as small dose at 12.5 mg daily No antibiotic, no steroids Transfuse for hemoglobin less than 7.Give 1 unit on 10/24 surgery team are planning for endoscopic evaluation no GI service in this facility during this week Pulmonary team on the case Surgical team consult for GI bleed (there is no GI coverage this facility) DVT prophylaxis: Discontinue Lovenox subcu passer GI bleed. Continue with SCD GI prophylaxis: IV Protonix Prognosis is guarded.
[2023-10-28 20:12] LABS: Glucose,Whole Blood 169 mg/dL (70-110)
[2023-10-28] MEDS: ZINC OXIDE PASTE (Z-GUARD) 1 APPLIC TOPICAL PRN (21:58)
--- NOTE | 2023-10-28 22:41 | CT ---
EXAMINATION TYPE: CT abdomen pelvis wo con CT DLP: 389.4 mGycm, Automated exposure control for dose reduction was used. DATE OF EXAM: 10/28/2023 9:47 PM COMPARISON: CT 10/08/2023 CLINICAL INDICATION:Female, 48 years old with history of abd pain; Abdominal pain TECHNIQUE: Axial CT of the abdomen and pelvis. Sagittal and coronal reformats were created on a [employer] workstation. Contrast used: mL of , (none if empty) Oral contrast used: without Oral Contrast (none if empty) FINDINGS: Exam is limited without contrast. LOWER CHEST: Bandlike consolidative and patchy groundglass opacities again seen in the included lung bases, appear slightly worsened compared to the prior examination. No significant pleural effusion is seen. Heart size upper normal. ABDOMEN LIVER: Cirrhotic morphology. Somewhat heterogeneous appearance. GALLBLADDER AND BILE DUCTS: Unremarkable gallbladder. No biliary ductal dilatation. PANCREAS: Unremarkable. SPLEEN: Unremarkable. ADRENAL GLANDS: Stable, without evidence of mass.. KIDNEYS AND URETERS: No evidence of renal calculi or contour deformity. No hydronephrosis. PELVIS BLADDER: Unremarkable REPRODUCTIVE: Uterus grossly unremarkable. No evidence of adnexal mass. ABDOMEN & PELVIS STOMACH AND BOWEL: Not well assessed without contrast. Small amount of radiodensity in the stomach, s uggesting some sort of ingested radiodense material. There is no evidence of significantly dilated sm all bowel. There appears to be mild mural fat deposition in the right colon which can be seen as sequ lauri of previous inflammation. There appear to be some diverticula in the distal colon, without eviden ce of diverticulitis. The appendix is not visualized with certainty, but no inflammatory process is s een. PERITONEUM/RETROPERITONEUM: No evidence of free air. Moderate to large amount of abdominal pelvic a scites, similar to the prior exam. Mesenteric stranding suggesting edema again noted. VASCULATURE: Mild to moderate atherosclerotic calcifications are present throughout the abdominal aor ta and its branches. No evidence of aortic aneurysm. LYMPH NODES: No gross evidence for lymphadenopathy. SOFT TISSUE/ABDOMINAL WALL: Mild body wall edema, appears slightly increased compared to prior. MUSCULOSKELETAL: No acute osseous abnormalities. IMPRESSION: 1. Limited unenhanced study shows no acute inflammatory or obstructive process in the abdomen or pel vis. 2. Bandlike consolidative and patchy groundglass opacities again seen in the included lung bases, ap pear slightly worsened compared to the prior examination. Likely considerations include infectious/in flammatory process, edema, atelectasis, or a combination. 3. Heterogeneous liver with cirrhotic morphology. 4. Moderate to large amount of abdominal pelvic ascites, similar to the prior exam. 5. Mild body wall edema, appears slightly increased compared to prior.
[2023-10-28 23:26] LABS: Magnesium 1.9 mg/dL (1.6-2.3); Potassium 4.1 mmol/L (3.5-5.1)
[2023-10-29 07:04] LABS: Glucose,Whole Blood 49 mg/dL (70-110)
[2023-10-29 07:04] LABS: Glucose,Whole Blood 47 mg/dL (70-110)
[2023-10-29 07:21] LABS: Glucose,Whole Blood 57 mg/dL (70-110)
[2023-10-29] MEDS: DEXTROSE 50% SYRINGE 50 ML IVP PRN (07:21)
[2023-10-29 07:43] LABS: Glucose,Whole Blood 239 mg/dL (70-110)
[2023-10-29] MEDS: POTASSIUM CHLORIDE ER 20 MEQ TAB.ER PO SCH (07:56)
[2023-10-29 10:34] LABS: Anisocytosis Moderate; Basophils % (A) 0 %; Eosinophils # (A) 0.1 k/uL (0-0.7); Eosinophils % (A) 0 %; HCT 26.6 % (34.0-46.0); HGB 8.1 gm/dL (11.4-16.0); Hypochromasia Marked; Lymphocytes % (A) 4 %; MCH 33.1 pg (25.0-35.0); MCHC 30.5 g/dL (31.0-37.0); MCV 108.7 fL (80.0-100.0); Macrocytosis Marked; Mean Platelet Volume 10.9; Monocytes % (A) 4 %; Neutrophils # (A) 21.4 k/uL (1.3-7.7); Neutrophils % (A) 90 %; Poikilocytosis Slight; RBC 2.44 m/uL (3.80-5.40); RDW 21.9 % (11.5-15.5); WBC 23.7 k/uL (3.8-10.6)
[2023-10-29 10:49] LABS: African American GFR (CKD) >90 (>60 ml/min/1.73 sqM); Anion Gap 6 mmol/L; Blood Urea Nitrogen 12 mg/dL (7-17); Calcium 7.1 mg/dL (8.4-10.2); Carbon Dioxide 23 mmol/L (22-30); Chloride 98 mmol/L (98-107); Glucose 224 mg/dL (74-99); Non-African American GFR(CKD) >90 (>60 ml/min/1.73 sqM); Potassium 3.9 mmol/L (3.5-5.1); Sodium 127 mmol/L (137-145)
[2023-10-29 11:17] LABS: Platelet Count 88 k/uL (150-450)
--- NOTE | 2023-10-29 11:17 | P.PN ---
Subjective Progress Note Date: 10/29/23 Patient main stable. Patient had paracentesis yesterday. She had 3 L removed. She is tolerating full liquid diet. She has had no sign of GI bleed. Hemoglobin is 8.3. On exam vital signs appear stable. Abdomen soft. Multiple medical problems. Patient will continue receive supportive care. Objective - Vital Signs Vital signs: Vital Signs Temp 98.2 F 10/29/23 08:00 Pulse 117 H 10/29/23 08:00 Resp 16 10/29/23 08:00 BP 100/58 10/29/23 08:00 Pulse Ox 95 10/29/23 08:00 FiO2 50 10/18/23 14:10 Intake & Output 10/28/23 10/29/23 10/29/23 18:59 06:59 18:59 Intake Total 720 240 Output Total 200 450 150 Balance 520 -450 90 Intake: Oral 720 240 Output: Urine 200 450 150 Other: Voiding Method External Catheter External Catheter External Catheter # Voids 1 ABP, PAP, CO, CI - Last Documented Arterial Blood Pressure 111/50 - Labs CBC & Chem 7: 10/28/23 08:09 10/29/23 08:43 Labs: Abnormal Lab Results - Last 24 Hours (Table) 10/28/23 10/28/23 10/28/23 Range/Units 11:44 12:55 16:37 Sodium 129 L (137-145) mmol/L Potassium 2.7 L* (3.5-5.1) mmol/L Chloride 96 L (98-107) mmol/L Creatinine 0.45 L (0.52-1.04) mg/dL Glucose 106 H (74-99) mg/dL POC Glucose (mg/dL) 132 H 237 H (70-110) mg/dL Calcium 7.1 L (8.4-10.2) mg/dL 10/28/23 10/29/23 10/29/23 Range/Units 20:10 07:02 07:03 Sodium (137-145) mmol/L Potassium (3.5-5.1) mmol/L Chloride (98-107) mmol/L Creatinine (0.52-1.04) mg/dL Glucose (74-99) mg/dL POC Glucose (mg/dL) 169 H 47 L 49 L (70-110) mg/dL Calcium (8.4-10.2) mg/dL 10/29/23 10/29/23 10/29/23 Range/Units 07:19 07:42 08:43 Sodium 127 L (137-145) mmol/L Potassium (3.5-5.1) mmol/L Chloride (98-107) mmol/L Creatinine 0.50 L (0.52-1.04) mg/dL Glucose 224 H (74-99) mg/dL POC Glucose (mg/dL) 57 L 239 H (70-110) mg/dL Calcium 7.1 L (8.4-10.2) mg/dL
[2023-10-29 11:46] LABS: Glucose,Whole Blood 219 mg/dL (70-110)
--- NOTE | 2023-10-29 13:05 | P.PN ---
Subjective Progress Note Date: 10/29/23 On 10/23/2023, the patient is being seen for a follow-up. The patient is known to have liver cirrhosis and chronic pancreatitis. The patient is a recovering alcoholic and she quit drinking approximately 5 years ago. The patient also has history of smoking, chronic anxiety and depression and acid reflux. The patient presented to to the hospital because of multilobar pneumonia and hypoxic respiratory failure. The patient had bilateral patchy airspace disease. The patient was treated in the intensive care unit. During the course of her ICU stay, the patient developed also worsening pulmonary edema in addition to underlying pneumonia. The patient had to be intubated and placed on mechanical ventilator. Note that she also has CHF with LV dysfunction and ejection fraction of 30%. No significant valvular abnormalities. She was treated with IV Zosyn and she was also placed on diuretics. The viral panel was negative. Her proBNP level was above 2000. The procalcitonin level was at 0.6. The patient remains on a mechanical ventilator and she was gradually weaned off the pressors as the patient required pressors to treat her sepsis. She was ultimately extubated on 09/18/2023 and currently she is on the medical floor maintained on 2 L of oxygen by nasal cannula. The most recent chest x-ray was done on 10/20/2023 that showed right middle lobe and left lower lobe airspace disease with hazy appearance of the lungs compatible with pneumonia. The patient also has abdominal distention and ascites. Ultrasound the abdomen that was done showed moderate degree of ascites and the patient underwent a paracentesis today with a total of 4.2 L of fluid removed. The patient remains on DuoNeb nebulized treatments [id number]. The patient is also on Lasix 40 mg IV every 12 hours. The patient completed her antibiotic course. Sputum culture from 10/12/2022 was positive for Marleni. The patient is white cell count of 29 with a hemoglobin 7.6 and a platelet count of 98. Sodium is at 127, BUN is at 30 creatinine 0.5 and a potassium level of 3.8. On today's evaluation after 02/2024, the patient sitting up on the chair. No significant respiratory distress and the patient is currently on room air oxygen. He is on Lasix 40 mg IV every 12 hours. The patient is in negative fluid balanceAnd the patient had a repeat chest x-ray that showed improving and then consistent changes bilaterally and resolving pulm vascular congestion. Also, the bibasilar pulm infiltrates also improved. The patient has no specific complaints. The white cell count is still elevated at 28 and this needs to be monitored. Hemoglobin has dropped down to 6.7 and the platelet count is at 120. No evidence of any GI bleeding at this point in time. Sodium levels at 125, BUN is at 29 with a creatinine of 0.6 and a potassium level at 3.4. The patient has no signs of encephalopathy. She is communicating. Denies having any chest pain. No nausea or vomiting or emesis at this point in time. She remains on Lovenox 40 mg subcu for DVT prophylaxis. She remains also on IV Solu-Medrol which will be discontinued today. On 10/25/2023, the patient is being seen for a follow-up. She is resting comfortably in bed. As noted yesterday, the patient had a drop in hemoglobin at 6.7 yesterday and the patient was given a unit of packed RBC. Subsequent hemoglobin came back To 9.4. However, it was noted that the patient was having some melanotic stool today and there is a concern for an ongoing GI bleeding. The white cell count today is elevated at 32 and a platelet count is 839. No hemodynamic instability. BUN is at 26 with a creatinine of 0.6. Sodium levels at 129. The patient on Lovenox for DVT prophylaxis. The patient remains on IV Lasix. The patient is also on IV Solu-Medrol. I took the opportunity to stop the Lasix and the Lovenox. I also suggested to discontinue the IV Solu-Medrol as the patient has no signs of bronchospasm or wheezing. The patient is currently on room air oxygen. She is slightly tachycardic and she is hemodynamically stable. The patient is going to be transferred to a monitored bed regarding the possibility of GI bleeding. Her current bilirubin is at 5.6 with a AST of 69 ALT of 78 and total protein is at 6.4 with an albumin of 2.7. She is lethargic and arousable and she is communicating. No hematemesis. On today's evaluation of 10/26/2023, I am seeing the patient for a follow-up. The patient is doing well. No specific complaints. No further witnessed episodes of GI bleeding. The patient got transferred to telemetry unit for a suspicious episode of GI bleed that was mentioned yesterday. The patientHad a follow-up CBC today and the hemoglobin currently is at 8.9 which is essentially stable compared to yesterday. The white cell count remains elevated. The patient's platelet count is also stable at 119. Sodium level was 126 with a potassium level of 3.4 BUN is at 26 with a creatinine of 0.4. The liver function tests are minimally elevated with an AST of 76, ALT of 73 and the most recent bilirubin level was at 3.1. She is resting comfortably in bed and the patient is currently on room air oxygen with a pulse ox of 94%. The patient is tachycardic. She does have abdominal ascites. I discontinued the Lasix yesterday. I also discontinued IV Solu-Medrol. The patient is currently on no specific antibiotic coverage. She was restarted back on a combination of Lasix and Aldactone as of this morning. This was done by the medical team. She is arousable and she is alert. When left unstimulated, she will go back into sleep. She is also on IV Protonix. On today's evaluation of 10/27/2023, seen the patient for a follow-up. The patient is doing well on room air oxygen. No evidence of any GI bleeding over the past 24 hours and the patient denies having any Bright red blood per rectum or melanotic stool. Meanwhile, the patient's hemoglobin is at 8.9 which is essentially stable compared to yesterday. Her platelet count is at 92. The white cell count is dropped down to 25 compared to 36 from yesterday. Rest of the electrolytes are essentially comparable with a potassium level of 2.9 and his sodium level is 125. BUN is at 20 with a creatinine of 0.4. LFTs are abnormal. This is consistent with her chronic liver disease. The patient otherwise has no other new complaints. She is awake and alert. She does have some mild degree of encephalopathy with chronic tiredness and sleepiness. She remains on lactulose 10 mg p.o. twice daily. She remains on Aldactone. She remains on Lasix 40 mg IV every 12 hours. On 10/28/2023, the patient is stable. No evidence of any GI bleeding over the past 24 to 48 hours. Meanwhile, the patient's Hemoglobin stable at 8.3 with a white cell count of 26 and a platelet count of 77. Awake and alert. No obvious signs of encephalopathy at this point in time. The patient's is clinically stable and hemodynamically stable at this point. The patient continues to be on Lasix 40 mg IV every 12 hours and the patient is also on Aldactone 25 mg p.o. daily. Rest of the medications remain unchanged. Oral intake is quite diminished. No focal neurological deficits. No signs of any encephalopathy. She is chronically fatigued and sleepy. On 10/29/2023, the patient is resting comfortably in bed. No new complaints. She remains on IV Lasix and I suggest having Lasix and replacing it with oral Lasix 40 mg twice a day. Labs from today shows some improvement in the white cell count which is currently down to 23 and the white cell count is gradually improving. Hemoglobin stable at 8.1. Platelet count is at 88. No evidence of any GI bleeding and we have not witnessed any GI bleeding. The patient is chronically hyponatremic with a sodium level of 127 with a BUN of 12 and a creatinine of 0.5 with a potassium level of 3.9. The patient remains on Aldactone. The patient remains on lactulose. She is chronically encephalopathic and sleepy is arousable and she communicates. No focal neurological deficit. Significantly debilitated and emaciated with a body mass index of 16.1. She is currently on room air oxygen. Objective - Vital Signs Vital signs: Vital Signs Temp 98.2 F 10/29/23 08:00 Pulse 117 H 10/29/23 08:00 Resp 16 10/29/23 08:00 BP 100/58 10/29/23 08:00 Pulse Ox 95 10/29/23 08:00 FiO2 50 10/18/23 14:10 Intake & Output 10/28/23 10/29/23 10/29/23 18:59 06:59 18:59 Intake Total 720 240 Output Total 200 450 150 Balance 520 -450 90 Intake: Oral 720 240 Output: Urine 200 450 150 Other: Voiding Method External Catheter External Catheter External Catheter # Voids 1 ABP, PAP, CO, CI - Last Documented Arterial Blood Pressure 111/50 - Exam GENERAL EXAM: Alert, pleasant 48-year-old female, on room air oxygen, resting in bed, in no apparent distress. The patient remains jaundiced, and the patient is currently jaundiced, very much cachectic and weak with a body mass index of 14.1. HEAD: Normocephalic. EYES: Normal reaction of pupils, equal size. NOSE: Clear with pink turbinates. THROAT: No erythema or exudates. NECK: No masses, no JVD. CHEST: No chest wall deformity. LUNGS: Equal air entry with no crackles, wheeze, rhonchi or dullness. CVS: S1 and S2 normal with no audible murmur, regular rhythm. ABDOMEN: Edmar distended, positive fluid wave, normal bowel sounds, no guarding or rigidity. SPINE: No scoliosis or deformity SKIN: No rashes CENTRAL NERVOUS SYSTEM: No focal deficits, tone is normal in all 4 extremities. EXTREMITIES: There is 1+ peripheral edema. No clubbing, no cyanosis. Peripheral pulses are intact. - Labs CBC & Chem 7: 10/29/23 08:43 10/29/23 08:43 Labs: Abnormal Lab Results - Last 24 Hours (Table) 10/28/23 10/28/23 10/28/23 Range/Units 11:44 12:55 16:37 Sodium 129 L (137-145) mmol/L Potassium 2.7 L* (3.5-5.1) mmol/L Chloride 96 L (98-107) mmol/L Creatinine 0.45 L (0.52-1.04) mg/dL Glucose 106 H (74-99) mg/dL POC Glucose (mg/dL) 132 H 237 H (70-110) mg/dL Calcium 7.1 L (8.4-10.2) mg/dL 10/28/23 10/29/23 10/29/23 Range/Units 20:10 07:02 07:03 Sodium (137-145) mmol/L Potassium (3.5-5.1) mmol/L Chloride (98-107) mmol/L Creatinine (0.52-1.04) mg/dL Glucose (74-99) mg/dL POC Glucose (mg/dL) 169 H 47 L 49 L (70-110) mg/dL Calcium (8.4-10.2) mg/dL 10/29/23 10/29/23 Range/Units 07:19 07:42 Sodium (137-145) mmol/L Potassium (3.5-5.1) mmol/L Chloride (98-107) mmol/L Creatinine (0.52-1.04) mg/dL Glucose (74-99) mg/dL POC Glucose (mg/dL) 57 L 239 H (70-110) mg/dL Calcium (8.4-10.2) mg/dL Assessment and Plan Plan: Acute hypoxic respiratory failure secondary to acute bilateral multilobar pneumonia as well as some fluid overload/CHF, status post intubation and mechanical ventilation on October 10, 2023. S/P successful extubation on October 18, 2023. The patient remains extubated on room air oxygen. Follow-up chest x- ray from today shows improvement in the bibasilar pulm infiltrates and the pulmonary vascular congestion. The patient is responding nicely to diuretics. The patient is currently on room air oxygen. The patient remains on a combination of Lasix and Aldactone. Acute pulmonary edema, cardiogenic in origin, with an ejection fraction of 20%, patient has been adequately diuresed with subsequent improvement in the chest x- ray and oxygenation. Acute exacerbation of chronic obstructive pulmonary disease secondary to above, recovered Ascites, status post paracentesis abdominis, underwent paracentesis on 10/23/2023 with a total of 4.2 L of ascitic fluid being drained. Noted the patient during the course of her illness. Also another paracentesis done 10/17/2023. Chronic and ongoing tobacco dependence History of heavy alcohol abuse however quit 5 years ago History of cirrhosis secondary to above History of chronic pancreatitis secondary to above History of anxiety/depression Jaundice to the bilirubin level remains elevated with disturbed LFTs Profound motor weakness, generalized secondary to above-mentioned comorbidities Chronic hyponatremia related to liver cirrhosis Diabetes mellitus secondary to above maintained on Levemir insulin 10 units daily along with sliding scale coverage Acute on top of chronic anemia hemoglobin is stable for now without evidence of any GI bleed Chronic thrombocytopenia related to liver disease, platelet count are stable Leukocytosis, improving Plan: Hemoglobin stable for now, and the hemoglobin stable at 8.1 No evidence of any GI bleeding Continue Protonix 80 mg IV every 24 hours. Monitor blood pressure and hemodynamics Continue diuretics and the patient will be switched to Lasix 40 mg p.o. twice daily in combination with Aldactone Monitor the white cell count, white cell count is improving Patient currently is on no antibiotic coverage Monitor hemoglobin, hemoglobin stable for now Watch for any further signs of GI bleeding and transfer this patient to monitored bed
[2023-10-29] MEDS: FUROSEMIDE 40 MG TAB PO SCH (15:23)
--- NOTE | 2023-10-29 15:26 | P.PN ---
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 Patient states that she has been having shortness of breath for the past week and a half and did get worse in the last few days. Patient tried using her breathing treatments at home but did not get improvement. Patient was recently given antibiotics and prednisone by her physician. She has been increasingly weak and not feeling well. Patient presented to ER for evaluation. He was also complaining of cough without any sputum production. Also complaining of chest tightness and anxiety. Denies any leg swelling. No nausea or vomiting. Patient is also having increased abdominal girth. No prior history of paracentesis as per patient. Denies any fever at home. On admission patient was tachycardic and tachypneic and pulse ox 80% on room air. Currently requiring 8 L of oxygen via nasal cannula. CT of the abdomen pelvis showed patchy bilateral airspace consolidation consistent with multilobar pneumonia. Hepatic steatosis, abdominal ascites. Wa ll thickening of small bowel correlate for mild enteritis versus spontaneous bacterial peritonitis. CTA chest showed no PE. Patchy bilateral airspace consolidation consistent with multilobar pneumonia. Chest x-ray showed similar multifocal airspace opacities. Laboratory data showed WBC 16.5 hemoglobin 10.0 MCV 102.4 and platelets 188 and neutrophils 14.4 INR 1.7, D-dimer 2.8 Sodium 132 potassium 3.7 chloride 95 bicarbonate 24 BUN 18 and creatinine 0.84 and blood sugar 270 and lactic acid 7.0 on admission, calcium 8.1, total bilirubin level is 4.6 AST 113 ALT 68 and alk phos 208 Troponin 0.012 and proBNP 2040 and albumin 3.0 Influenza A, B, RSV and COVID-19 PCR not detected. 10/10/2023 Patient was transferred to MICU. Overnight patient's respiratory status worsened due to multifocal pneumonia and also patient is receiving fluids at 100 cc/h due to sepsis. Patient was intubated and is on assist-control. Patient is currently requiring pressor support. Chest x-ray this morning showed severe bilateral pulmonary infiltration which has worsened. Was given IV Lasix. 2D echocardiogram showed dilated LV and severe LV systolic dysfunction. Ejection fraction 30 to 35%. Laboratory showed WBC worsened to 26.6 hemoglobin 10.3 and platelets 190 Sodium 139 potassium 3.6 chloride 108 bicarb is 20 BUN 15 and creatinine 0.64 blood sugar 206 and A1c 6.8 lactic acid 5.4 this morning. Liver enzymes are elevated. Cardiology and pulmonary is on board. Patient is being continued on antibiotics changed to Zosyn. Procalcitonin level is elevated at 0.61. 10/11/2023 Patient is in the MICU. Intubated and sedated. On mechanical ventilator. Patient is also requiring pressor support with Levophed and also on dobutamine drip. Urine output remains low. Patient has been afebrile. Nutrition via NG tube. Patient was also started on IV hydration with normal saline at 75 cc/h. Chest x-ray showed multifocal airspace opacities are not significantly changed. Support tubes and proper positioning. Patient remains on antibiotics in the form of Zosyn. 2D echocardiogram showed left ventricular ejection fraction 30 to 35%. Mild right ventricular dilatation. Trace pericardial effusion and pleural effusion was identified. Laboratory data showed WBC 24.9 hemoglobin 9.6 and platelets 187 Sodium 137 potassium 4.2 chloride 102 bicarb is 26 BUN 25 and creatinine 1.1 and blood sugar 264. Patient is scheduled for paracentesis tomorrow. Blood cultures negative so far. Cardiology and pulmonary is on board. 10/12/2023 Patient is in the MICU. Remains intubated and sedated. On assist-control with respiratory of 20 tidal volume 350 and FiO2 40% and PEEP of 10. Continue to be on vasopressin and norepinephrine. Patient was also started on IV hydration with normal saline at 75 cc/h. Urine output is marginal. Patient remains on antibiotics Zosyn. Repeat chest x-ray this morning showed similar multifocal airspace opacities. Patient was given a dose of IV Lasix. Stable support tubes. Laboratory data showed WBC 24.6 hemoglobin 9.1 and platelets 144 BUN 40 and creatinine 1.09 and blood sugar is elevated at 312. Levemir dose increased to 12 units twice daily and continue with insulin sliding scale. Cardiology and critical care team is on board.Patient is scheduled to go for paracentesis today. 10/13/2023 Patient remains in the MICU. On assist-control with FiO2 35% and PEEP of 10. Tidal volume 350. Currently sedation is off. Chest x-ray showed stable exam mild pulmonary edema. Patient underwent ultrasound-guided paracentesis with 1800 cc clear straw- colored fluid drained. Pathology and culture is pending. Laboratory data showed WBC 25.4 hemoglobin 8.7 and platelets 127 BUN 49 creatinine 1.03 potassium 4.2 and blood sugar 159. Patient is being current on IV Solu-Medrol 60 mg every 6 hourly and is also on antibiotics, Zosyn. 10/14/2023 Patient is a pleasant 48 years old female who presents with bilateral pneumonia with acute hypoxic respiratory failure requiring intubation and mechanical ventilation. CTA of the chest was negative for PE which is done secondary to high d-dimer, CT of the abdomen showing thickened small bowel loops suspicious for enteritis, patient currently covered with Zosyn ProBNP is elevated 2039, chest x-ray showing mild was for congestion and ejection fraction is 30-35% patient is receiving IV Lasix and She Is Intubated. She Is Also on Salmeterol 60 Mg for Possible Acute COPD Exacerbation. Patient on Insulin Levemir 12 Units Twice Daily She Has Decompensated Liver Cirrhosis Status Post Paracentesis on 10/12 Where 1800 ML of Fluid Aspirated Patient today undergoing sedation holiday with propofol was off since yesterday Patient got agitated and she was placed on Precedex as well as IV morphine with little help so far Discussed with the bedside nurse Patient could not tolerate CPAP earlier, currently continued on mechanical ventilation with P5 and FiO2 of 40% Family at bedside 10/15/2023 Patient remains in the ICU intubated and sedated Over the last 2 days she was undergoing sedation holiday and propofol was stopped Today she was more agitated and she was placed back on a propofol Pulmonary level yesterday was 20 but given her worsening mentation we ordered a repeat ammonia level and KUB for abdomen slightly distended She had paracentesis related to her decompensated liver cirrhosis about 3 days ago with 1800 mL of fluid taken out We going to order a KUB but possible patient will require more paracentesis She received 1 dose of IV Lasix Normal saline 75 mL output 250 mL/h She remains on Zosyn and Solu-Medrol 60 mg Discussed with the bedside nurse 10/16/2023 Patient remains in the ICU intubated and sedated Yesterday after on repeat chest x-ray showing pulmonary congestion IV fluids of normal saline 50 mL was stopped and patient was started on IV Lasix 40 mg every 8 hours Repeat chest x-ray this morning testosterone pulmonary congestion, KUB showing nonobstructive pattern most likely patient has ascites related to her liver cirrhosis. Also patient placed on low-dose Lopressor suffers a percent respiratory blood pressure Metoprolol 25 mg 3 times a day per Communication Spec This she swelling is on board and patient glucose is controlled. 10/17/2023 Patient is from his ICU sedated and intubated. Today propofol was stopped and patient could follow command Weaning trial is attempting and patient was replaced back on before meals mode because of her tachypnea Also patient is planned to undergo paracentesis so between today and tomorrow for her ascites related to her liver cirrhosis. Extremities without obvious on Medrol 40 mg, Zosyn, IV Lasix 40 mg every 8 hours. 10/18/2023 Patient remains intubated and sedated in the ICU with pulmonary/critical care team followed closely. Patient under going sedation holiday for possible extubation She still has leukocytosis of 24,000, hemoglobin 8.6. IV fluids discontinued Currently on Solu-Medrol 40 mg, Zosyn and Lasix 40 mg 3 times a day. 10/19/2023 Patient is status post extubation today. She is awake alert and family at bedside trying to feed her. She developed a large direct well. She is calm pleasant looks little bit tired. Denies any specific symptoms with no chest pain or dyspnea. Abdomen is mildly distended but soft no tenderness. She remains on IV Solu-Medrol 40 mg twice daily, IV Lasix 40 twice daily. She is not an antibiotic I am resuming the care of the patient Patient awake alert looks relaxed and comfortable in bed She is eating her meal with no difficulty Her abdomen mildly distended She status post paracentesis with 4.2 L of fluid taken out She is mildly tachycardic with a heart attack and 106 Blood pressure 95/59 Sodium on the low side to 127 WBCs 20 9K, patient he has history of chronic leukocytosis since 2019 Hemoglobin stable 7.6. Platelet count 104 INR 1.6. Patient remains on IV salmeterol 40 mg and IV Lasix 40 mg 10/24/2023 Patient awake alert, sitting up in chair, looks pleasant Patient denies any specific symptoms, no dyspnea or chest pain or coughing. Abdominal distention is mild, improvement after paracentesis, no urinary symptoms and her bowel movement is formed. No confusion, no abdominal pain or tenderness. Her fluid overload is improving Actually she has mild hypovolemic hyponatremia today with sodium 125. Hemoglobin dropped to 6.7 and she is going to be given 1 unit of blood transfu jono WBC is elevated at 28,000 which is chronic Chest x-ray showing improvement aeration. please refer to the for report She still on office on Medrol 4 mg twice daily and IV Lasix 40 mg twice daily 10/25/2023 Patient awake and alert Denies specific symptoms, to the risks some diet Abdomen mildly distended Patient had severe anemia yesterday at 6.7 received 1 unit of blood transfusion went up to 9.4 this morning her stool was dark suspicious for GI bleed so we repeated hemoglobin was 8.9. Patient blood pressure is stable but mildly tachycardic. Patient IV Lasix was held. I saw Medrol was held as well as IV Lovenox. Patient continued on IV Protonix, iron pills added We'll check for occult blood in the stool Transfer the patient to [facility], stress UNIT for more close monitoring Consult general surgery team 10/26/2023 Patient awake alert, mentation at baseline, she is somewhat whispering. Denies dyspnea. No abdominal pain or tenderness, abdomen mildly distended but soft No evidence of cellulitis, she has some oozing spots from her right thigh. She had 2 bowel movements which are black in color. Sodium 126 from 125 yesterday most likely hypervolemic hyponatremia Yesterday Lasix 40 mg IV twice a day was stopped, and we going to resume Lasix 40 mg by mouth daily. Also we will add Aldactone small dose Hemoglobin stable 8.9, surgery team are planning for further evaluation, and po ssible scope She was on IV Protonix Pressure is up again the umbilicus her NovoLog 3 units up to 5 units with meals 10/27/2023 Patient awake and alert at baseline, she is calm and relaxed not in distress She's getting lactulose and states she had one to 2 bowel movements yesterday, no blood Vitals stable. Hemoglobin from yesterday was stable, today labs are pending Patient is abdomen is mildly distended and after blood transfusion. She was placed on oral Lasix 40 mg daily and Aldactone 12.5 mg General surgeon on the case and plan for procedure today to check for acute blood loss anemia. She's not on anticoagulation and she is on IV Protonix Dietitian consult for her malnutrition there is no GI service in this facility during this week Patient awake alert, mildly lethargic but she looks comfortable. She is not eating much mainly drinking pop. Patient was encouraged to eat and she was placed on liquid diet with ensure. She status post paracentesis and around 3 L of fluid taken out yesterday Sodium is 129 after she was placed on IV Lasix and Aldactone Hemoglobin stable at 8.3 and she remains on IV Protonix 10/29/2023 Patient is very weak and lethargic but still awake. Her sugar was on the low side after we lowered her Levemir 10 units twice a day down to 14 units at bedtime, we going to lower dose down to 10 units at bedtime, especially patient also going for endoscopy tomorrow with surgery team for her anemia Patient has not eaten much and she was encouraged extensively. Last night she had some lower abdominal tenderness but still concerned. Repeat CT of the abdomen showing similar changes Hemoglobin 8.1, WBC 23,000 which is chronic, sodium 129 Increase lactulose 10 mg twice a day to 20 mg as she is having one bowel movement a become more lethargic Change of the Lasix to oral dose Objective - Vital Signs Vital signs: Vital Signs Temp 98.2 F 10/29/23 08:00 Pulse 122 H 10/29/23 11:46 Resp 18 10/29/23 11:46 BP 103/56 10/29/23 11:46 Pulse Ox 93 L 10/29/23 11:46 FiO2 50 10/18/23 14:10 Intake & Output 10/28/23 10/29/23 10/29/23 18:59 06:59 18:59 Intake Total 720 360 Output Total 200 450 150 Balance 520 -450 210 Intake: Oral 720 360 Output: Urine 200 450 150 Other: Voiding Method External Catheter External Catheter External Catheter # Voids 1 5 # Bowel Movements 1 ABP, PAP, CO, CI - Last Documented Arterial Blood Pressure 111/50 - Exam GENERAL: The patient is alert and oriented x3, not in any acute distress. Well developed, well nourished. HEENT: Pupils are round and equally reacting to light. EOMI. No scleral icterus. No conjunctival pallor. Normocephalic, atraumatic. No pharyngeal erythema. No thyromegaly. CARDIOVASCULAR: S1 and S2 present. No murmurs, rubs, or gallops. PULMONARY: Chest is clear to auscultation, no wheezing , no crackles. -ABDOMEN: Soft, nontender, mildly distended, normoactive bowel sounds. No palpable organomegaly. MUSCULOSKELETAL: No joint swelling or deformity. EXTREMITIES: No cyanosis, clubbing, or pedal edema. NEUROLOGICAL: Gross neurological examination did not reveal any focal deficits. SKIN: No rashes. no petechiae. - Labs CBC & Chem 7: 10/29/23 08:43 10/29/23 08:43 Labs: Abnormal Lab Results - Last 24 Hours (Table) 10/28/23 10/28/23 10/29/23 Range/Units 16:37 20:10 07:02 WBC (3.8-10.6) k/uL RBC (3.80-5.40) m/uL Hgb (11.4-16.0) gm/dL Hct (34.0-46.0) % MCV (80.0-100.0) fL MCHC (31.0-37.0) g/dL RDW (11.5-15.5) % Plt Count (150-450) k/uL Neutrophils # (1.3-7.7) k/uL Macrocytosis Sodium (137-145) mmol/L Creatinine (0.52-1.04) mg/dL Glucose (74-99) mg/dL POC Glucose (mg/dL) 237 H 169 H 47 L (70-110) mg/dL Calcium (8.4-10.2) mg/dL 10/29/23 10/29/23 10/29/23 Range/Units 07:03 07:19 07:42 WBC (3.8-10.6) k/uL RBC (3.80-5.40) m/uL Hgb (11.4-16.0) gm/dL Hct (34.0-46.0) % MCV (80.0-100.0) fL MCHC (31.0-37.0) g/dL RDW (11.5-15.5) % Plt Count (150-450) k/uL Neutrophils # (1.3-7.7) k/uL Macrocytosis Sodium (137-145) mmol/L Creatinine (0.52-1.04) mg/dL Glucose (74-99) mg/dL POC Glucose (mg/dL) 49 L 57 L 239 H (70-110) mg/dL Calcium (8.4-10.2) mg/dL 10/29/23 10/29/23 10/29/23 Range/Units 08:43 08:43 11:44 WBC 23.7 H (3.8-10.6) k/uL RBC 2.44 L (3.80-5.40) m/uL Hgb 8.1 L (11.4-16.0) gm/dL Hct 26.6 L (34.0-46.0) % MCV 108.7 H (80.0-100.0) fL MCHC 30.5 L (31.0-37.0) g/dL RDW 21.9 H (11.5-15.5) % Plt Count 88 L (150-450) k/uL Neutrophils # 21.4 H (1.3-7.7) k/uL Macrocytosis Marked A Sodium 127 L (137-145) mmol/L Creatinine 0.50 L (0.52-1.04) mg/dL Glucose 224 H (74-99) mg/dL POC Glucose (mg/dL) 219 H (70-110) mg/dL Calcium 7.1 L (8.4-10.2) mg/dL Assessment and Plan Assessment: Significant anemia GI bleed, status post one unit of blood transfusion Acute hypoxic respiratory failure secondary to multifocal pneumonia and pulmonary edema. Patient is 8 L high flow oxygen--> intubated on mechanical ventilator. Pulmonary edema likely due to cardiogenic with low ejection fraction 30 to 35%. Acute HFrEF with ejection fraction 30 -45% moderate calorie protein malnutrition Multifocal pneumonia, finished her course of antibioitics Sepsis/septic shock secondary to above. off pressor support COPD with acute exacerbation Lactic acidosis 7.0 on admission Alcoholic liver cirrhosis Ascites Patient is status post paracentesis on 10/13/2023. Hepatic steatosis and hyperbilirubinemia and elevated liver enzymes History of severe alcohol abuse. Quit 5 years ago History of chronic pancreatitis Anxiety/depression Plan: Patient is awake and alert and tolerates diet well on oral lasix and aldacotone as small dose at 12.5 mg daily No antibiotic, no steroids Transfuse for hemoglobin less than 7.Give 1 unit on 10/24 surgery team are planning for endoscopic evaluation no GI service in this facility during this week Pulmonary team on the case Surgical team consult for GI bleed (there is no GI coverage this facility) DVT prophylaxis: Discontinue Lovenox subcu passer GI bleed. Continue with SCD GI prophylaxis: IV Protonix Prognosis is guarded.
[2023-10-29 16:32] LABS: Glucose,Whole Blood 214 mg/dL (70-110)
[2023-10-29 19:50] LABS: Glucose,Whole Blood 210 mg/dL (70-110)
[2023-10-29] MEDS: LACTULOSE 20 GM/30 ML CUP PO SCH (20:23)
[2023-10-29] MEDS: INSULIN DETEMIR (LEVEMIR) 100 UNIT/ML SYR SQ SCH (20:29)
[2023-10-30 07:03] LABS: Anisocytosis Moderate; HCT 27.9 % (34.0-46.0); HGB 8.7 gm/dL (11.4-16.0); Hypochromasia Marked; MCH 33.5 pg (25.0-35.0); MCV 108.2 fL (80.0-100.0); Macrocytosis Marked; Mean Platelet Volume 9.6; RBC 2.58 m/uL (3.80-5.40); RDW 21.4 % (11.5-15.5); WBC 18.4 k/uL (3.8-10.6)
[2023-10-30 07:04] LABS: Glucose,Whole Blood 137 mg/dL (70-110)
[2023-10-30 07:12] LABS: Platelet Count 82 k/uL (150-450)
[2023-10-30 07:23] LABS: African American GFR (CKD) >90 (>60 ml/min/1.73 sqM); Anion Gap 4 mmol/L; Blood Urea Nitrogen 12 mg/dL (7-17); Calcium 7.3 mg/dL (8.4-10.2); Carbon Dioxide 24 mmol/L (22-30); Chloride 98 mmol/L (98-107); Glucose 125 mg/dL (74-99); Non-African American GFR(CKD) >90 (>60 ml/min/1.73 sqM); Potassium 3.5 mmol/L (3.5-5.1); Sodium 126 mmol/L (137-145)
[2023-10-30 09:10] LABS: Total Bilirubin 3.8 mg/dL (0.2-1.3)
--- NOTE | 2023-10-30 11:42 | P.PN ---
Subjective Progress Note Date: 10/30/23 48-year-old female with a past medical history of severe alcohol abuse, quit 5 years ago, alcoholic liver cirrhosis and is on follow-up with her senior radiation protection technician at [facility], IBS, anxiety/depression and presents to ER with complaints of worsening shortness of breath. Patient states that she has been having shortness of breath for the past week and a half and did get worse in the last few days. Patient tried using her breathing treatments at home but did not get improvement. Patient was recently given antibiotics and prednisone by her physician. She has been increasingly weak and not feeling well. Patient presented to ER for evaluation. He was also complaining of cough without any sputum production. Also complaining of chest tightness and anxiety. Denies any leg swelling. No nausea or vomiting. Patient is also having increased abdominal girth. No prior history of paracentesis as per patient. Denies any fever at home. On admission patient was tachycardic and tachypneic and pulse ox 80% on room air. Currently requiring 8 L of oxygen via nasal cannula. CT of the abdomen pelvis showed patchy bilateral airspace consolidation consistent with multilobar pneumonia. Hepatic steatosis, abdominal ascites. Wall thickening of small bowel correlate for mild enteritis versus spontaneous bacterial peritonitis. CTA chest showed no PE. Patchy bilateral airspace consolidation consistent with multilobar pneumonia. Chest x-ray showed similar multifocal airspace opacities. Laboratory data showed WBC 16.5 hemoglobin 10.0 MCV 102.4 and platelets 188 and neutrophils 14.4 INR 1.7, D-dimer 2.8 Sodium 132 potassium 3.7 chloride 95 bicarbonate 24 BUN 18 and creatinine 0.84 and blood sugar 270 and lactic acid 7.0 on admission, calcium 8.1, total bilirubin level is 4.6 AST 113 ALT 68 and alk phos 208 Troponin 0.012 and proBNP 2040 and albumin 3.0 Influenza A, B, RSV and COVID-19 PCR not detected. 10/10/2023 Patient was transferred to MICU. Overnight patient's respiratory status w orsened due to multifocal pneumonia and also patient is receiving fluids at 100 cc/h due to sepsis. Patient was intubated and is on assist-control. Patient is currently requiring pressor support. Chest x-ray this morning showed severe bilateral pulmonary infiltration which has worsened. Was given IV Lasix. 2D echocardiogram showed dilated LV and severe LV systolic dysfunction. Ejection fraction 30 to 35%. Laboratory showed WBC worsened to 26.6 hemoglobin 10.3 and platelets 190 Sodium 139 potassium 3.6 chloride 108 bicarb is 20 BUN 15 and creatinine 0.64 blood sugar 206 and A1c 6.8 lactic acid 5.4 this morning. Liver enzymes are elevated. Cardiology and pulmonary is on board. Patient is being continued on antibiotics changed to Zosyn. Procalcitonin level is elevated at 0.61. 10/11/2023 Patient is in the MICU. Intubated and sedated. On mechanical ventilator. Patient is also requiring pressor support with Levophed and also on dobutamine drip. Urine output remains low. Patient has been afebrile. Nutrition via NG tube. Patient was also started on IV hydration with normal saline at 75 cc/h. Chest x-ray showed multifocal airspace opacities are not significantly changed. Support tubes and proper positioning. Patient remains on antibiotics in the form of Zosyn. 2D echocardiogram showed left ventricular ejection fraction 30 to 35%. Mild right ventricular dilatation. Trace pericardial effusion and pleural effusion was identified. Laboratory data showed WBC 24.9 hemoglobin 9.6 and platelets 187 Sodium 137 potassium 4.2 chloride 102 bicarb is 26 BUN 25 and creatinine 1.1 and blood sugar 264. Patient is scheduled for paracentesis tomorrow. Blood cultures negative so far. Cardiology and pulmonary is on board. 10/12/2023 Patient is in the MICU. Remains intubated and sedated. On assist-control with respiratory of 20 tidal volume 350 and FiO2 40% and PEEP of 10. Continue to be on vasopressin and norepinephrine. Patient was also started on IV hydration with normal saline at 75 cc/h. Urine output is marginal. Patient remains on antibiotics Zosyn. Repeat chest x-ray this morning showed similar multifocal airspace opacities. Patient was given a dose of IV Lasix. Stable support tubes. Laboratory data showed WBC 24.6 hemoglobin 9.1 and platelets 144 BUN 40 and creatinine 1.09 and blood sugar is elevated at 312. Levemir dose increased to 12 units twice daily and continue with insulin sliding scale. Cardiology and critical care team is on board.Patient is scheduled to go for paracentesis today. 10/13/2023 Patient remains in the MICU. On assist-control with FiO2 35% and PEEP of 10. Tidal volume 350. Currently sedation is off. Chest x-ray showed stable exam mild pulmonary edema. Patient underwent ultrasound-guided paracentesis with 1800 cc clear straw- colored fluid drained. Pathology and culture is pending. Laboratory data showed WBC 25.4 hemoglobin 8.7 and platelets 127 BUN 49 creatinine 1.03 potassium 4.2 and blood sugar 159. Patient is being current on IV Solu-Medrol 60 mg every 6 hourly and is also on antibiotics, Zosyn. 10/14/2023 Patient is a pleasant 48 years old female who presents with bilateral pneumonia with acute hypoxic respiratory failure requiring intubation and mechanical ventilation. CTA of the chest was negative for PE which is done secondary to high d-dimer, CT of the abdomen showing thickened small bowel loops suspicious for enteritis, patient currently covered with Zosyn ProBNP is elevated 2039, chest x-ray showing mild was for congestion and ejection fraction is 30-35% patient is receiving IV Lasix and She Is Intubated. She Is Also on Salmeterol 60 Mg for Possible Acute COPD Exacerbation. Patient on Insulin Levemir 12 Units Twice Daily She Has Decompensated Liver Cirrhosis Status Post Paracentesis on 10/12 Where 1800 ML of Fluid Aspirated Patient today undergoing sedation holiday with propofol was off since yesterday Patient got agitated and she was placed on Precedex as well as IV morphine with little help so far Discussed with the bedside nurse Patient could not tolerate CPAP earlier, currently continued on mechanical ventilation with P5 and FiO2 of 40% Family at bedside 10/15/2023 Patient remains in the ICU intubated and sedated Over the last 2 days she was undergoing sedation holiday and propofol was stopped Today she was more agitated and she was placed back on a propofol Pulmonary level yesterday was 20 but given her worsening mentation we ordered a repeat ammonia level and KUB for abdomen slightly distended She had paracentesis related to her decompensated liver cirrhosis about 3 days ago with 1800 mL of fluid taken out We going to order a KUB but possible patient will require more paracentesis She received 1 dose of IV Lasix Normal saline 75 mL output 250 mL/h She remains on Zosyn and Solu-Medrol 60 mg Discussed with the bedside nurse 10/16/2023 Patient remains in the ICU intubated and sedated Yesterday after on repeat chest x-ray showing pulmonary congestion IV fluids of normal saline 50 mL was stopped and patient was started on IV Lasix 40 mg every 8 hours Repeat chest x-ray this morning testosterone pulmonary congestion, KUB showing nonobstructive pattern most likely patient has ascites related to her liver cirrhosis. Also patient placed on low-dose Lopressor suffers a percent respiratory blood pressure Metoprolol 25 mg 3 times a day per [employer] This she swelling is on board and patient glucose is controlled. 10/17/2023 Patient is from his ICU sedated and intubated. Today propofol was stopped and patient could follow command Weaning trial is attempting and patient was replaced back on before meals mode because of her tachypnea Also patient is planned to undergo paracentesis so between today and tomorrow for her ascites related to her liver cirrhosis. Extremities without obvious on Medrol 40 mg, Zosyn, IV Lasix 40 mg every 8 hours. 10/18/2023 Patient remains intubated and sedated in the ICU with pulmonary/critical care team followed closely. Patient under going sedation holiday for possible extubation She still has leukocytosis of 24,000, hemoglobin 8.6. IV fluids discontinued Currently on Solu-Medrol 40 mg, Zosyn and Lasix 40 mg 3 times a day. 10/19/2023 Patient is status post extubation today. She is awake alert and family at bedside trying to feed her. She developed a large direct well. She is calm pleasant looks little bit tired. Denies any specific symptoms with no chest pain or dyspnea. Abdomen is mildly distended but soft no tenderness. She remains on IV Solu-Medrol 40 mg twice daily, IV Lasix 40 twice daily. She is not an antibiotic I am resuming the care of the patient Patient awake alert looks relaxed and comfortable in bed She is eating her meal with no difficulty Her abdomen mildly distended She status post paracentesis with 4.2 L of fluid taken out She is mildly tachycardic with a heart attack and 106 Blood pressure 95/59 Sodium on the low side to 127 WBCs 20 9K, patient he has history of chronic leukocytosis since 2019 Hemoglobin stable 7.6. Platelet count 104 INR 1.6. Patient remains on IV salmeterol 40 mg and IV Lasix 40 mg 10/24/2023 Patient awake alert, sitting up in chair, looks pleasant Patient denies any specific symptoms, no dyspnea or chest pain or coughing. Abdominal distention is mild, improvement after paracentesis, no urinary symptoms and her bowel movement is formed. No confusion, no abdominal pain or tenderness. Her fluid overload is improving Actually she has mild hypovolemic hyponatremia today with sodium 125. Hemoglobin dropped to 6.7 and she is going to be given 1 unit of blood transfusion WBC is elevated at 28,000 which is chronic Chest x-ray showing improvement aeration. please refer to the for report She still on office on Medrol 4 mg twice daily and IV Lasix 40 mg twice daily 10/25/2023 Patient awake and alert Denies specific symptoms, to the risks some diet Abdomen mildly distended Patient had severe anemia yesterday at 6.7 received 1 unit of blood transfusion went up to 9.4 this morning her stool was dark suspicious for GI bleed so we repeated hemoglobin was 8.9. Patient blood pressure is stable but mildly tachycardic. Patient IV Lasix was held. I saw Medrol was held as well as IV Lovenox. Patient continued on IV Protonix, iron pills added We'll check for occult blood in the stool Transfer the patient to [facility], stress UNIT for more close monitoring Consult general surgery team 10/26/2023 Patient awake alert, mentation at baseline, she is somewhat whispering. Denies dyspnea. No abdominal pain or tenderness, abdomen mildly distended but soft No evidence of cellulitis, she has some oozing spots from her right thigh. She had 2 bowel movements which are black in color. Sodium 126 from 125 yesterday most likely hypervolemic hyponatremia Yesterday Lasix 40 mg IV twice a day was stopped, and we going to resume Lasix 40 mg by mouth daily. Also we will add Aldactone small dose Hemoglobin stable 8.9, surgery team are planning for further evaluation, and possible scope She was on IV Protonix Pressure is up again the umbilicus her NovoLog 3 units up to 5 units with meals 10/27/2023 Patient awake and alert at baseline, she is calm and relaxed not in distress She's getting lactulose and states she had one to 2 bowel movements yesterday, no blood Vitals stable. Hemoglobin from yesterday was stable, today labs are pending Patient is abdomen is mildly distended and after blood transfusion. She was placed on oral Lasix 40 mg daily and Aldactone 12.5 mg General surgeon on the case and plan for procedure today to check for acute blood loss anemia. She's not on anticoagulation and she is on IV Protonix Dietitian consult for her malnutrition there is no GI service in this facility during this week Patient awake alert, mildly lethargic but she looks comfortable. She is not eating much mainly drinking pop. Patient was encouraged to eat and she was placed on liquid diet with ensure. She status post paracentesis and around 3 L of fluid taken out yesterday Sodium is 129 after she was placed on IV Lasix and Aldactone Hemoglobin stable at 8.3 and she remains on IV Protonix 10/29/2023 Patient is very weak and lethargic but still awake. Her sugar was on the low side after we lowered her Levemir 10 units twice a day down to 14 units at bedtime, we going to lower dose down to 10 units at bedtime, especially patient also going for endoscopy tomorrow with surgery team for her anemia Patient has not eaten much and she was encouraged extensively. Last night she had some lower abdominal tenderness but still concerned. Repeat CT of the abdomen showing similar changes Hemoglobin 8.1, WBC 23,000 which is chronic, sodium 129 Increase lactulose 10 mg twice a day to 20 mg as she is having one bowel movemen t a become more lethargic Change of the Lasix to oral dose 10/30/2023 Dr Ramirez Patient seen and evaluated bedside, patient is awake and alert, patient does complain of weakness, WBC count 18.4 hemoglobin 8.7 platelet count 82,000. Serum sodium is 126 potassium 3.5 BUN and creatinine within normal limits blood glucose 125, 137. Noted to have sinus tachycardia. Patient did have paracentesis completed on 10/27 and 3.6 L of fluid was removed GENERAL: The patient is alert and oriented x3, ill appearance, pale appearance HEENT: Pupils are round and equally reacting to light. EOMI. CARDIOVASCULAR: S1 and S2 present. Tachycardia noted PULMONARY: Chest is clear to auscultation, no wheezing , no crackles. ABDOMEN: Soft, nontender, distended, MUSCULOSKELETAL: No joint swelling or deformity. EXTREMITIES: Bilateral lower extremity edema NEUROLOGICAL: Gross neurological examination did not reveal any focal deficits. SKIN: Pale appearance Objective - Vital Signs Vital signs: Vital Signs Temp 98.4 F 10/30/23 08:00 Pulse 93 10/30/23 08:00 Resp 16 10/30/23 08:00 BP 102/58 10/30/23 08:00 Pulse Ox 97 10/30/23 08:00 FiO2 50 10/18/23 14:10 Intake & Output 10/29/23 10/30/23 10/30/23 18:59 06:59 18:59 Intake Total 600 Output Total 400 250 100 Balance 200 -250 -100 Intake: Oral 600 Output: Urine 400 250 Stool 100 Other: Voiding Method External Catheter External Catheter External Catheter # Voids 5 # Bowel Movements 1 1 ABP, PAP, CO, CI - Last Documented Arterial Blood Pressure 111/50 - Labs CBC & Chem 7: 10/30/23 06:23 10/30/23 06:23 Labs: Abnormal Lab Results - Last 24 Hours (Table) 10/29/23 10/29/23 10/29/23 Range/Units 11:44 16:30 19:48 WBC (3.8-10.6) k/uL RBC (3.80-5.40) m/uL Hgb (11.4-16.0) gm/dL Hct (34.0-46.0) % MCV (80.0-100.0) fL RDW (11.5-15.5) % Plt Count (150-450) k/uL Macrocytosis Sodium (137-145) mmol/L Creatinine (0.52-1.04) mg/dL Glucose (74-99) mg/dL POC Glucose (mg/dL) 219 H 214 H 210 H (70-110) mg/dL Calcium (8.4-10.2) mg/dL Total Bilirubin (0.2-1.3) mg/dL AST (14-36) U/L ALT (4-34) U/L Alkaline Phosphatase (38-126) U/L 10/30/23 10/30/23 10/30/23 Range/Units 06:23 06:23 07:03 WBC 18.4 H (3.8-10.6) k/uL RBC 2.58 L (3.80-5.40) m/uL Hgb 8.7 L (11.4-16.0) gm/dL Hct 27.9 L (34.0-46.0) % MCV 108.2 H (80.0-100.0) fL RDW 21.4 H (11.5-15.5) % Plt Count 82 L (150-450) k/uL Macrocytosis Marked A Sodium 126 L (137-145) mmol/L Creatinine 0.46 L (0.52-1.04) mg/dL Glucose 125 H (74-99) mg/dL POC Glucose (mg/dL) 137 H (70-110) mg/dL Calcium 7.3 L (8.4-10.2) mg/dL Total Bilirubin (0.2-1.3) mg/dL AST (14-36) U/L ALT (4-34) U/L Alkaline Phosphatase (38-126) U/L 10/30/23 Range/Units 08:42 WBC (3.8-10.6) k/uL RBC (3.80-5.40) m/uL Hgb (11.4-16.0) gm/dL Hct (34.0-46.0) % MCV (80.0-100.0) fL RDW (11.5-15.5) % Plt Count (150-450) k/uL Macrocytosis Sodium (137-145) mmol/L Creatinine (0.52-1.04) mg/dL Glucose (74-99) mg/dL POC Glucose (mg/dL) (70-110) mg/dL Calcium (8.4-10.2) mg/dL Total Bilirubin 3.8 H (0.2-1.3) mg/dL AST 68 H (14-36) U/L ALT 51 H (4-34) U/L Alkaline Phosphatase 170 H (38-126) U/L Assessment and Plan Assessment: Assessment and plan * Symptomatic anemia with GI bleed, status post one unit of blood transfusion * Acute hypoxic respiratory failure secondary to multifocal pneumonia and pulmonary edema. Patient is 8 L high flow oxygen--> intubated on mechanical ventilator. * Pulmonary edema likely due to cardiogenic with low ejection fraction 30 to 35%. Acute HFrEF with ejection fraction 30 -45% * moderate calorie protein malnutrition * Multifocal pneumonia, finished her course of antibioitics * Sepsis/septic shock secondary to above. off pressor support * COPD with acute exacerbation * Lactic acidosis 7.0 on admission RESOLVED * Alcoholic liver cirrhosis * Ascites Patient is status post paracentesis on 10/27/23 * Hepatic steatosis and hyperbilirubinemia and elevated liver enzymes * History of severe alcohol abuse. Quit 5 years ago * History of chronic pancreatitis * Anxiety/depression Plan: * In regards to significant anemia transfuse to maintain hemoglobin more than 7 patient given 1 unit of packed RBC on 10/24, surgery following * In regards to decompensated liver cirrhosis continue Lasix, continue Aldactone , continue thiamine, * In regards to congestive heart failure continue patient on Aldactone, will sta rt low-dose metoprolol * In regards to COPD continue patient on breathing treatments * Continue SCDs for DVT prophylaxis Time with Patient: Greater than 30
[2023-10-30 11:59] LABS: Glucose,Whole Blood 230 mg/dL (70-110)
--- NOTE | 2023-10-30 12:20 | P.PN ---
Subjective Progress Note Date: 10/30/23 The patient is seen today October 30, 2023 and follow-up on the regular medical floor. She is awake and alert in no acute distress. Sitting up in a chair at the bedside. She is maintaining good O2 saturations in the 90s on room air. No worsening shortness of breath, cough or congestion. White count 18.8 AST 68. ALT 51. She is status post 1 unit of packed red blood cells this admission. No current active GI bleed. She remains on diuretics. She remains quite weak and debilitated. Plan is for subacute rehab postdischarge. Objective - Vital Signs Vital signs: Vital Signs Temp 98.4 F 10/30/23 08:00 Pulse 93 10/30/23 08:00 Resp 16 10/30/23 08:00 BP 102/58 10/30/23 08:00 Pulse Ox 97 10/30/23 08:00 FiO2 50 10/18/23 14:10 Intake & Output 10/29/23 10/30/23 10/30/23 18:59 06:59 18:59 Intake Total 600 Output Total 400 250 100 Balance 200 -250 -100 Weight 40 kg Intake: Oral 600 Output: Urine 400 250 Stool 100 Other: Voiding Method External Catheter External Catheter External Catheter # Voids 5 # Bowel Movements 1 1 ABP, PAP, CO, CI - Last Documented Arterial Blood Pressure 111/50 - Exam GENERAL EXAM: Alert, pleasant 48-year-old female, on room air, up in a chair, in no apparent distress. HEAD: Normocephalic. EYES: Normal reaction of pupils, equal size. NOSE: Clear with pink turbinates. THROAT: No erythema or exudates. NECK: No masses, no JVD. CHEST: No chest wall deformity. LUNGS: Equal air entry with no crackles, wheeze, rhonchi or dullness. CVS: S1 and S2 normal with no audible murmur, regular rhythm. ABDOMEN: Edmar distended, positive fluid wave, normal bowel sounds, no guarding or rigidity. SPINE: No scoliosis or deformity SKIN: No rashes CENTRAL NERVOUS SYSTEM: No focal deficits, remains quite weak and debilitated, tone is normal in all 4 extremities. EXTREMITIES: There is 1+ peripheral edema. No clubbing, no cyanosis. Peripheral pulses are intact. - Labs CBC & Chem 7: 10/30/23 06:23 10/30/23 06:23 Labs: Abnormal Lab Results - Last 24 Hours (Table) 10/29/23 10/29/23 10/30/23 Range/Units 16:30 19:48 06:23 WBC 18.4 H (3.8-10.6) k/uL RBC 2.58 L (3.80-5.40) m/uL Hgb 8.7 L (11.4-16.0) gm/dL Hct 27.9 L (34.0-46.0) % MCV 108.2 H (80.0-100.0) fL RDW 21.4 H (11.5-15.5) % Plt Count 82 L (150-450) k/uL Macrocytosis Marked A Sodium (137-145) mmol/L Creatinine (0.52-1.04) mg/dL Glucose (74-99) mg/dL POC Glucose (mg/dL) 214 H 210 H (70-110) mg/dL Calcium (8.4-10.2) mg/dL Total Bilirubin (0.2-1.3) mg/dL AST (14-36) U/L ALT (4-34) U/L Alkaline Phosphatase (38-126) U/L 10/30/23 10/30/23 10/30/23 Range/Units 06:23 07:03 08:42 WBC (3.8-10.6) k/uL RBC (3.80-5.40) m/uL Hgb (11.4-16.0) gm/dL Hct (34.0-46.0) % MCV (80.0-100.0) fL RDW (11.5-15.5) % Plt Count (150-450) k/uL Macrocytosis Sodium 126 L (137-145) mmol/L Creatinine 0.46 L (0.52-1.04) mg/dL Glucose 125 H (74-99) mg/dL POC Glucose (mg/dL) 137 H (70-110) mg/dL Calcium 7.3 L (8.4-10.2) mg/dL Total Bilirubin 3.8 H (0.2-1.3) mg/dL AST 68 H (14-36) U/L ALT 51 H (4-34) U/L Alkaline Phosphatase 170 H (38-126) U/L 10/30/23 Range/Units 11:57 WBC (3.8-10.6) k/uL RBC (3.80-5.40) m/uL Hgb (11.4-16.0) gm/dL Hct (34.0-46.0) % MCV (80.0-100.0) fL RDW (11.5-15.5) % Plt Count (150-450) k/uL Macrocytosis Sodium (137-145) mmol/L Creatinine (0.52-1.04) mg/dL Glucose (74-99) mg/dL POC Glucose (mg/dL) 230 H (70-110) mg/dL Calcium (8.4-10.2) mg/dL Total Bilirubin (0.2-1.3) mg/dL AST (14-36) U/L ALT (4-34) U/L Alkaline Phosphatase (38-126) U/L Assessment and Plan Assessment: Acute hypoxic respiratory failure secondary to acute bilateral multilobar pneumonia as well as some fluid overload/CHF, status post intubation and mechanical ventilation on October 10, 2023. S/P successful extubation on October 18, 2023. Recovered and on room air Acute pulmonary edema, cardiogenic in origin, with an ejection fraction of 20% Acute exacerbation of chronic obstructive pulmonary disease secondary to above Ascites, status post paracentesis abdominis on 10/17/2023 and again on 10/23/2023 Chronic and ongoing tobacco dependence History of heavy alcohol abuse however quit 5 years ago History of cirrhosis secondary to above History of chronic pancreatitis secondary to above History of anxiety/depression Jaundice to the bilirubin level remains elevated with elevated LFTs Profound motor weakness, generalized secondary to above-mentioned comorbidities Chronic hyponatremia related to liver cirrhosis Diabetes mellitus secondary to above maintained on Levemir insulin 10 units daily along with sliding scale coverage Acute on top of chronic anemia hemoglobin is stable for now without evidence of any GI bleed Chronic thrombocytopenia related to liver disease, platelet count are stable Leukocytosis, improving Plan: The patient was seen and evaluated Labs and medications reviewed Currently stable and on room air No active GI bleed noted She remains quite weak and debilitated Working with physical therapy Awaiting subacute rehabilitation placement This patient was seen independently by the pulmonary nurse practitioner addressing pulmonary issues I have personally seen and examined the patient, performed the documentation and the assessment and plan as written. Number of minutes spent on the visit: 22.
[2023-10-30] MEDS: METOPROLOL SUCCINATE (ER) 25 MG TAB.ER.24H PO SCH (12:30)
--- NOTE | 2023-10-30 12:57 | P.PN ---
Subjective Progress Note Date: 10/30/23 CHIEF COMPLAINT: Nausea and vomiting GI bleed HISTORY OF PRESENT ILLNESS: The patient is a 48-year-old female who is being followed for GI bleed. Patient continues to have nausea. She was scheduled for upper endoscopy however canceled due to persistent hyponatremia. No recent bleed. ROS: Nausea and vomiting. No fevers or chills. No new chest pain. Underweight, BMI 16.1 PHYSICAL EXAM: VITAL SIGNS: Reviewed CONSTITUTIONAL: Well developed and in no acute distress. EYES: Conjuctivae without sclera icterus. Extraocular movements grossly intact. HEAD, EARS, NOSE, THROAT: Moist buccal mucosa. Head is atraumatic, normocephalic. Hears conversational speech. No nasal drainage. RESPIRATORY: Non-labored respirations and equal bilateral excursions. CARDIOVASCULAR: Palpable 2+ radial pulses. ABDOMEN: Scaphoid. No peritonitis. MUSCULOSKELETAL: No gross deformity of the lower extremities noted. No clubbing. No cyanosis. SKIN: Good skin turgor. Well perfused. NEUROLOGIC: Cranial nerves II through XII grossly intact. No focal or lateralizing signs. PSYCH: Appropriate affect. Alert and oriented to person, place and time. CLINICAL LABS: Reviewed. Persistent leukocytosis, white count of over 18,000. Sodium 126, hyponatremia, hemoglobin 8.1-8.7. ASSESSMENT: 1. GI bleed with anemia 2. Intractable nausea and vomiting 3. Persistent leukocytosis 4. Underweight, BMI 16.1 5. Chronic hyponatremia PLAN: 1. Will need correction of hyponatremia at least 130 or higher to proceed with any additional procedures 2. We'll continue to monitor hemoglobin 3. May proceed with upper endoscopy in 48 hours after correction of hyponatremia Objective - Vital Signs Vital signs: Vital Signs Temp 98.4 F 10/30/23 08:00 Pulse 93 10/30/23 08:00 Resp 16 10/30/23 08:00 BP 102/58 10/30/23 08:00 Pulse Ox 97 10/30/23 08:00 FiO2 50 10/18/23 14:10 Intake & Output 10/29/23 10/30/23 10/30/23 18:59 06:59 18:59 Intake Total 600 Output Total 400 250 100 Balance 200 -250 -100 Weight 40 kg Intake: Oral 600 Output: Urine 400 250 Stool 100 Other: Voiding Method External Catheter External Catheter External Catheter # Voids 5 # Bowel Movements 1 1 ABP, PAP, CO, CI - Last Documented Arterial Blood Pressure 111/50 - Labs CBC & Chem 7: 10/30/23 06:23 10/30/23 06:23 Labs: Abnormal Lab Results - Last 24 Hours (Table) 10/29/23 10/29/23 10/30/23 Range/Units 16:30 19:48 06:23 WBC 18.4 H (3.8-10.6) k/uL RBC 2.58 L (3.80-5.40) m/uL Hgb 8.7 L (11.4-16.0) gm/dL Hct 27.9 L (34.0-46.0) % MCV 108.2 H (80.0-100.0) fL RDW 21.4 H (11.5-15.5) % Plt Count 82 L (150-450) k/uL Macrocytosis Marked A Sodium (137-145) mmol/L Creatinine (0.52-1.04) mg/dL Glucose (74-99) mg/dL POC Glucose (mg/dL) 214 H 210 H (70-110) mg/dL Calcium (8.4-10.2) mg/dL Total Bilirubin (0.2-1.3) mg/dL AST (14-36) U/L ALT (4-34) U/L Alkaline Phosphatase (38-126) U/L 10/30/23 10/30/23 10/30/23 Range/Units 06:23 07:03 08:42 WBC (3.8-10.6) k/uL RBC (3.80-5.40) m/uL Hgb (11.4-16.0) gm/dL Hct (34.0-46.0) % MCV (80.0-100.0) fL RDW (11.5-15.5) % Plt Count (150-450) k/uL Macrocytosis Sodium 126 L (137-145) mmol/L Creatinine 0.46 L (0.52-1.04) mg/dL Glucose 125 H (74-99) mg/dL POC Glucose (mg/dL) 137 H (70-110) mg/dL Calcium 7.3 L (8.4-10.2) mg/dL Total Bilirubin 3.8 H (0.2-1.3) mg/dL AST 68 H (14-36) U/L ALT 51 H (4-34) U/L Alkaline Phosphatase 170 H (38-126) U/L 10/30/23 Range/Units 11:57 WBC (3.8-10.6) k/uL RBC (3.80-5.40) m/uL Hgb (11.4-16.0) gm/dL Hct (34.0-46.0) % MCV (80.0-100.0) fL RDW (11.5-15.5) % Plt Count (150-450) k/uL Macrocytosis Sodium (137-145) mmol/L Creatinine (0.52-1.04) mg/dL Glucose (74-99) mg/dL POC Glucose (mg/dL) 230 H (70-110) mg/dL Calcium (8.4-10.2) mg/dL Total Bilirubin (0.2-1.3) mg/dL AST (14-36) U/L ALT (4-34) U/L Alkaline Phosphatase (38-126) U/L
--- NOTE | 2023-10-30 15:47 | P.CONS ---
History of Present Illness - Reason for Consult Consult date: 10/30/23 Liver cirrhosis Requesting physician: Cisco E Sheet - Chief Complaint Shortness of breath - History of Present Illness This is a 48-year-old female who presented to the emergency department about 3 weeks ago with complaints of shortness of breath. She was subsequently admitted to the ICU and intubated. She was diagnosed and treated for pneumonia and sepsis. Due to patient's intubation she is had some difficulty swallowing following, also patient complains of scratchy sore throat and is just whispering at this time. She has a longstanding history of alcohol abuse and admits to drinking a pint a day. States that she was drinking right up until her adm ission. States she was diagnosed with cirrhosis of the liver a few years ago.. She was not following with anyone for her liver disease. During this hospitalization she has had 3 paracentesis last one being on 10/27/2023 with 3.6 L removed. She was started on Lasix 40 mg twice daily, Aldactone 25 mg daily. She is currently also on lactulose 20 mg twice daily. States she is having regular bowel movements daily. Patient had rectal tube during her ICU stay, and reportedly after it was removed had some blood noted in her stools possibly black and bloody stools. Initially general surgery was consulted. Patient's last colonoscopy was 2 years ago reported as negative. General surgery followi rob, tentative plan was for EGD today however patient was hyponatremic and is rescheduled for Monday. She is denying any blood in her stool or black stool. Hemoglobin is stable at 8.7. Gastroenterology was consulted for cirrhosis of the liver. She denies any previous history of paracentesis prior to this admission. Today's labs WBC 18.4 hemoglobin 8.7 hematocrit 27.9 platelet count 82,000 sodium 126 potassium 3.5 BUN 12 creatinine 0.46 total bilirubin 3.8 AST 68 ALT 51 alkaline phosphatase 170 patient is currently alert and oriented. She denies any abdominal pain, nausea or vomiting. Denies any blood in her stool or black stool. Review of Systems REVIEW OF SYSTEMS: CARDIOPULMONARY: No chest pain or shortness of breath. Gastrointestinal: No abdominal pain. No nausea or vomiting. No hematemesis, coffee-ground emesis. No rectal bleeding, or melena. GENITOURINARY: No dysuria or hematuria. MUSCULOSKELETAL: Reports normal range of motion., Joint pain. SKIN: No rashes. No jaundice. ENDOCRINE: No chills, fevers. No excessive weight gain or loss. No polydipsia or polyuria. PSYCHIATRIC: Unremarkable. NEUROLOGY: No change in mental status. Denies dizziness, headache. ENT: Vision unremarkable. CONSTITUTIONAL: No recent weight loss. No fever, chills, night sweats. Past Medical History Past Medical History: No Reported History Additional Past Medical History / Comment(s): Pt admitted to [facility] on 08/05/19 with acute pancreatitis/htn urgency-she signed out AMA to go home and care for her dog (couldn't find anyone to help). Other hx: IBS, bronchitis, ETOH abus e. History of Any Multi-Drug Resistant Organisms: None Reported Past Surgical History: No Surgical Hx Reported Additional Past Surgical History / Comment(s): EGD, colonoscopies. Past Anesthesia/Blood Transfusion Reactions: No Reported Reaction Past Psychological History: Anxiety, Depression Past Alcohol Use History: Daily, Heavy Past Drug Use History: None Reported - Past Family History Father Additional Family Medical History / Comment(s): Father is from [place]. Mother Family Medical History: No Reported History Additional Family Medical History / Comment(s): Mother is alive with history of asthma, pancreatitis, alchohol abuse. Patient does not have any brothers, sisters, children. Medications and Allergies Home Medications Medication Instructions Recorded Confirmed Type PARoxetine HCL [Paxil] 40 mg PO HS 05/13/18 10/08/23 History ALPRAZolam [Xanax] 1 mg PO HS 08/29/20 10/08/23 History Azithromycin [Zithromax] 500 mg PO DAILY 10/08/23 10/08/23 History Furosemide [Lasix] 20 mg PO HS 10/08/23 10/08/23 History Pantoprazole Sodium [Protonix] 80 mg PO DAILY 10/08/23 10/08/23 History Purezzz 1 tab PO HS 10/08/23 10/08/23 History Spironolactone [Aldactone] 50 mg PO DAILY 10/08/23 10/08/23 History diphenhydrAMINE HCL [Benadryl] 25 mg PO HS 10/08/23 10/08/23 History guaiFENesin [Mucinex] 600 mg PO Q12H 10/08/23 10/08/23 History predniSONE [Deltasone] 40 mg PO DAILY 10/08/23 10/08/23 History Allergies Allergy/AdvReac Type Severity Reaction Status Date / Time No Known Allergies Allergy Verified 10/08/23 22:08 Physical Exam Vitals: Vital Signs Temp Pulse Pulse Resp BP Pulse Ox 10/30/23 08:00 98.4 F 93 119 H 16 102/58 97 10/30/23 03:11 98.5 F 117 H 16 110/70 96 10/29/23 19:29 98.1 F 118 H 14 103/66 95 10/29/23 16:00 97.9 F 119 H 16 99/54 93 L 10/29/23 11:46 122 H 18 103/56 93 L Intake and Output 10/29/23 10/30/23 10/30/23 22:59 06:59 14:59 Intake Total 240 Output Total 250 250 100 Balance -10 -250 -100 Intake: Oral 240 Output: Urine 250 250 Stool 100 Other: Voiding Method External Catheter External Catheter # Bowel Movements 1 General appearance: The patient is alert, oriented, appears in no acute distress. Emaciated appearing. HET: Head is normocephalic and atraumatic. Conjunctiva pink. Sclera icteric. Neck: Supple without lymphadenopathy. Trachea midline. Heart: Regular. Lungs: Equal expansion, normal respiratory effort. Abdomen: Soft, nontender, nondistended. No guarding or rigidity. Skin: No rashes. Jaundice. Extremities: Normal skin color and turgor. No pedal edema. Neurological: No focal deficits. Alert and oriented x3. Results CBC & Chem 7: 10/30/23 06:23 10/30/23 06:23 Labs: Abnormal Lab Results - Last 24 Hours (Table) 10/29/23 10/29/23 10/29/23 Range/Units 08:43 08:43 11:44 WBC 23.7 H (3.8-10.6) k/uL RBC 2.44 L (3.80-5.40) m/uL Hgb 8.1 L (11.4-16.0) gm/dL Hct 26.6 L (34.0-46.0) % MCV 108.7 H (80.0-100.0) fL MCHC 30.5 L (31.0-37.0) g/dL RDW 21.9 H (11.5-15.5) % Plt Count 88 L (150-450) k/uL Neutrophils # 21.4 H (1.3-7.7) k/uL Macrocytosis Marked A Sodium 127 L (137-145) mmol/L Creatinine 0.50 L (0.52-1.04) mg/dL Glucose 224 H (74-99) mg/dL POC Glucose (mg/dL) 219 H (70-110) mg/dL Calcium 7.1 L (8.4-10.2) mg/dL Total Bilirubin (0.2-1.3) mg/dL AST (14-36) U/L ALT (4-34) U/L Alkaline Phosphatase (38-126) U/L 10/29/23 10/29/23 10/30/23 Range/Units 16:30 19:48 06:23 WBC 18.4 H (3.8-10.6) k/uL RBC 2.58 L (3.80-5.40) m/uL Hgb 8.7 L (11.4-16.0) gm/dL Hct 27.9 L (34.0-46.0) % MCV 108.2 H (80.0-100.0) fL MCHC (31.0-37.0) g/dL RDW 21.4 H (11.5-15.5) % Plt Count 82 L (150-450) k/uL Neutrophils # (1.3-7.7) k/uL Macrocytosis Marked A Sodium (137-145) mmol/L Creatinine (0.52-1.04) mg/dL Glucose (74-99) mg/dL POC Glucose (mg/dL) 214 H 210 H (70-110) mg/dL Calcium (8.4-10.2) mg/dL Total Bilirubin (0.2-1.3) mg/dL AST (14-36) U/L ALT (4-34) U/L Alkaline Phosphatase (38-126) U/L 10/30/23 10/30/23 10/30/23 Range/Units 06:23 07:03 08:42 WBC (3.8-10.6) k/uL RBC (3.80-5.40) m/uL Hgb (11.4-16.0) gm/dL Hct (34.0-46.0) % MCV (80.0-100.0) fL MCHC (31.0-37.0) g/dL RDW (11.5-15.5) % Plt Count (150-450) k/uL Neutrophils # (1.3-7.7) k/uL Macrocytosis Sodium 126 L (137-145) mmol/L Creatinine 0.46 L (0.52-1.04) mg/dL Glucose 125 H (74-99) mg/dL POC Glucose (mg/dL) 137 H (70-110) mg/dL Calcium 7.3 L (8.4-10.2) mg/dL Total Bilirubin 3.8 H (0.2-1.3) mg/dL AST 68 H (14-36) U/L ALT 51 H (4-34) U/L Alkaline Phosphatase 170 H (38-126) U/L Comments: 10/23/2023 abdominal ultrasound reports moderate ascites 10/28/[address] without contrast reports limited on enhanced study shows no acute inflammatory or obstructive process in the abdomen or pelvis. Bandlike consolidative and patchy groundglass opacities again seen in the included lung bases, appears slightly worsened compared to prior exam nation. Likely considerations include infectious/inflammatory process, edema atelectasis or combination. Heterogeneous liver with cirrhotic morphology. Moderate to large amount of abdominal pelvic ascites, similar to prior exam. Mild body wall edema, appears slightly increased compared to prior. Assessment and Plan (1) Alcoholic liver disease Narrative/Plan: 48-year-old female with a longstanding history of alcohol abuse that drinks at least a pint a day has been here for about 22 days initial complaint of shortness of breath and diagnosed with pneumonia and sepsis subsequently requiring intubation. Patient's diagnosed within the last few years with cirrhosis of the liver does not follow with anyone. She was noted to have abdominal ascites on admission and is required 3 paracentesis during this stay. Also had some reported blood in her stool and is going to undergo endoscopic evaluation with general surgery. Recommend continuing Lasix, will increase Aldactone to 100 mg daily. Paracentesis as needed. Continue lactulose. Recommend alcohol abstinence and follow-up with gastroenterology. Current Visit: Yes Status: Acute Code(s): K70.9 - ALCOHOLIC LIVER DISEASE, UNSPECIFIED SNOMED Code(s): 51446934 (2) Ascites Current Visit: Yes Status: Acute Code(s): R18.8 - OTHER ASCITES SNOMED Code(s): 931207640 (3) Pneumonia Current Visit: Yes Status: Acute Code(s): J18.9 - PNEUMONIA, UNSPECIFIED ORGANISM SNOMED Code(s): 835066296 (4) Respiratory failure requiring intubation Current Visit: Yes Status: Acute Code(s): J96.90 - RESPIRATORY FAILURE, UNSP, UNSP W HYPOXIA OR HYPERCAPNIA SNOMED Code(s): 220580841 (5) Hyponatremia Current Visit: Yes Status: Acute Code(s): E87.1 - HYPO-OSMOLALITY AND HYPONATREMIA SNOMED Code(s): 52406990 Plan: 1. Continue symptomatic and supportive care 2. Continue Lasix, increase Aldactone to 100 mg daily 3. Continue lactulose 4. Recommend alcohol abstinence 5. Patient will need outpatient follow-up with gastroenterology 6. Paracentesis as needed 7. Daily CBC, transfuse for hemoglobin less than 7. Daily BMP 8. Patient is scheduled for EGD with general surgery 11/01/2023 Thank you for this consultation, we will continue to follow. Dr. Jann Duckworth I agree with the dictator's note, documented as a scribe by Lyly Guerrero.
[2023-10-30 16:43] LABS: Glucose,Whole Blood 500 mg/dL (70-110)
[2023-10-30 20:21] LABS: Glucose,Whole Blood 61 mg/dL (70-110)
[2023-10-30 20:34] LABS: Glucose,Whole Blood 270 mg/dL (70-110)
[2023-10-31 05:52] LABS: Glucose,Whole Blood 79 mg/dL (70-110)
[2023-10-31 09:03] LABS: Anisocytosis Moderate; HCT 28.8 % (34.0-46.0); HGB 8.9 gm/dL (11.4-16.0); Hypochromasia Marked; MCH 33.5 pg (25.0-35.0); MCHC 30.8 g/dL (31.0-37.0); MCV 108.6 fL (80.0-100.0); Macrocytosis Marked; Mean Platelet Volume 9.8; RBC 2.65 m/uL (3.80-5.40); RDW 20.5 % (11.5-15.5)
[2023-10-31 09:04] LABS: INR 1.6 (<1.2); Prothrombin Time 16.3 sec (10.0-12.5)
[2023-10-31 09:29] LABS: ALT 51 U/L (4-34); AST 60 U/L (14-36); African American GFR (CKD) >90 (>60 ml/min/1.73 sqM); Albumin 2.3 g/dL (3.5-5.0); Alkaline Phosphatase 170 U/L (38-126); Anion Gap 7 mmol/L; Blood Urea Nitrogen 12 mg/dL (7-17); Calcium 7.2 mg/dL (8.4-10.2); Carbon Dioxide 21 mmol/L (22-30); Chloride 97 mmol/L (98-107); Glucose 62 mg/dL (74-99); Non-African American GFR(CKD) >90 (>60 ml/min/1.73 sqM); Sodium 125 mmol/L (137-145); Total Bilirubin 3.8 mg/dL (0.2-1.3); Total Protein 6.2 g/dL (6.3-8.2)
--- NOTE | 2023-10-31 09:32 | P.PN ---
Subjective Progress Note Date: 10/31/23 Principal diagnosis: Liver cirrhosis This is a 48-year-old female who presented to the emergency department about 3 weeks ago with complaints of shortness of breath. She was subsequently admitted to the ICU and intubated. She was diagnosed and treated for pneumonia and sepsis. Due to patient's intubation she is had some difficulty swallowing following, also patient complains of scratchy sore throat and is just whispering at this time. She has a longstanding history of alcohol abuse and admits to drinking a pint a day. States that she was drinking right up until her admission. States she was diagnosed with cirrhosis of the liver a few years ago.. She was not following with anyone for her liver disease. During this hospitalization she has had 3 paracentesis last one being on 10/27/2023 with 3.6 L removed. She was started on Lasix 40 mg twice daily, Aldactone 25 mg daily. She is currently also on lactulose 20 mg twice daily. States she is having reg ular bowel movements daily. Patient had rectal tube during her ICU stay, and reportedly after it was removed had some blood noted in her stools possibly black and bloody stools. Initially general surgery was consulted. Patient's last colonoscopy was 2 years ago reported as negative. General surgery following, tentative plan was for EGD today however patient was hyponatremic and is rescheduled for Monday. She is denying any blood in her stool or black stool. Hemoglobin is stable at 8.7. Gastroenterology was consulted for cirrhosis of the liver. She denies any previous history of paracentesis prior to this admission. Today's labs WBC 18.4 hemoglobin 8.7 hematocrit 27.9 platelet count 82,000 sodium 126 potassium 3.5 BUN 12 creatinine 0.46 total bilirubin 3.8 AST 68 ALT 51 alkaline phosphatase 170 patient is currently alert and oriented. She denies any abdominal pain, nausea or vomiting. Denies any blood in her stool or black stool. 10/31/2023 Patient was seen and examined today as a follow-up she was resting with her eyes closed but easily arousable. States she is doing fine. Tolerating her breakfast. Labs currently pending. Denies any abdominal pain, nausea or vomiting. Objective - Vital Signs Vital signs: Vital Signs Temp 97.6 F 10/31/23 02:00 Pulse 114 H 10/31/23 02:00 Resp 18 10/31/23 02:00 BP 113/63 10/31/23 02:00 Pulse Ox 94 L 10/31/23 02:00 FiO2 50 10/18/23 14:10 Intake & Output 10/30/23 10/31/23 10/31/23 18:59 06:59 18:59 Intake Total 400 Output Total 100 Balance 300 Weight 40 kg Intake: Oral 400 Output: Stool 100 Other: Voiding Method External Catheter # Voids 1 1 # Bowel Movements 1 ABP, PAP, CO, CI - Last Documented Arterial Blood Pressure 111/50 - Exam General appearance: The patient is alert, oriented, appears in no acute distress. HET: Head is normocephalic and atraumatic. Conjunctiva pink. Sclera icteric. Neck: Supple without lymphadenopathy. Abdomen: Soft, nontender, nondistended. Extremities: Normal skin color and turgor. No pedal edema Skin: No rashes, jaundice Neurological: No focal deficits. Alert and oriented. - Labs CBC & Chem 7: 10/30/23 06:23 10/30/23 06:23 Labs: Abnormal Lab Results - Last 24 Hours (Table) 10/30/23 10/30/23 10/30/23 Range/Units 11:57 16:42 20:19 PT (10.0-12.5) sec INR (<1.2) POC Glucose (mg/dL) 230 H 500 H 61 L (70-110) mg/dL 10/30/23 10/31/23 Range/Units 20:32 08:03 PT 16.3 H (10.0-12.5) sec INR 1.6 H (<1.2) POC Glucose (mg/dL) 270 H (70-110) mg/dL Assessment and Plan (1) Alcoholic liver disease Narrative/Plan: 48-year-old female with a longstanding history of alcohol abuse that drinks at least a pint a day has been here for about 22 days initial complaint of shortness of breath and diagnosed with pneumonia and sepsis subsequently requiring intubation. Patient's diagnosed within the last few years with cirrh osis of the liver does not follow with anyone. She was noted to have abdominal ascites on admission and is required 3 paracentesis during this stay. Also had some reported blood in her stool and is going to undergo endoscopic evaluation with general surgery. Recommend continuing Lasix, will increase Aldactone to 100 mg daily. Paracentesis as needed. Continue lactulose. Recommend alcohol abstinence and follow-up with gastroenterology. Current Visit: Yes Status: Acute Code(s): K70.9 - ALCOHOLIC LIVER DISEASE, UNSPECIFIED SNOMED Code(s): 49689127 (2) Ascites Narrative/Plan: Aldactone increased to 100 mg daily, continue Lasix 40 mg twice daily then discharged on 40 mg daily Current Visit: Yes Status: Acute Code(s): R18.8 - OTHER ASCITES SNOMED Code(s): 677016886 (3) Pneumonia Current Visit: Yes Status: Acute Code(s): J18.9 - PNEUMONIA, UNSPECIFIED ORGANISM SNOMED Code(s): 342033055 (4) Respiratory failure requiring intubation Current Visit: Yes Status: Acute Code(s): J96.90 - RESPIRATORY FAILURE, UNSP, UNSP W HYPOXIA OR HYPERCAPNIA SNOMED Code(s): 879873531 (5) Hyponatremia Current Visit: Yes Status: Acute Code(s): E87.1 - HYPO-OSMOLALITY AND HYPONATREMIA SNOMED Code(s): 82497860 Plan: 1. Continue symptomatic and supportive care 2. Continue Lasix, increase Aldactone to 100 mg daily. Recommend Lasix 40 mg daily on discharge 3. Continue lactulose 4. Recommend alcohol abstinence 5. Patient will need outpatient follow-up with gastroenterology 6. Paracentesis as needed 7. Daily CBC, transfuse for hemoglobin less than 7. Daily BMP 8. Patient is scheduled for EGD with general surgery 11/01/2023 Thank you for this consultation, we will continue to follow. Dr. Jann Duckworth I agree with the dictator's note, documented as a scribe by Lyly Guerrero.
[2023-10-31 09:36] LABS: Platelet Count 96 k/uL (150-450)
[2023-10-31 09:39] LABS: Potassium 3.8 mmol/L (3.5-5.1)
[2023-10-31 10:47] LABS: Glucose,Whole Blood 85 mg/dL (70-110)
[2023-10-31] MEDS: LACTATED RINGERS 1,000 ML IV SCH (10:56)
[2023-10-31 11:51] LABS: Glucose,Whole Blood 106 mg/dL (70-110)
--- NOTE | 2023-10-31 11:52 | P.PN ---
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 Patient states that she has been having shortness of breath for the past week and a half and did get worse in the last few days. Patient tried using her breathing treatments at home but did not get improvement. Patient was recently given antibiotics and prednisone by her physician. She has been increasingly weak and not feeling well. Patient presented to ER for evaluation. He was also complaining of cough without any sputum production. Also complaining of chest tightness and anxiety. Denies any leg swelling. No nausea or vomiting. Patient is also having increased abdominal girth. No prior history of paracentesis as per patient. Denies any fever at home. On admission patient was tachycardic and tachypneic and pulse ox 80% on room air. Currently requiring 8 L of oxygen via nasal cannula. CT of the abdomen pelvis showed patchy bilateral airspace consolidation consistent with multilobar pneumonia. Hepatic steatosis, abdominal ascites. Wall thickening of small bowel correlate for mild enteritis versus spontaneous bacterial peritonitis. CTA chest showed no PE. Patchy bilateral airspace consolidation consistent with multilobar pneumonia. Chest x-ray showed similar multifocal airspace opacities. Laboratory data showed WBC 16.5 hemoglobin 10.0 MCV 102.4 and platelets 188 and neutrophils 14.4 INR 1.7, D-dimer 2.8 Sodium 132 potassium 3.7 chloride 95 bicarbonate 24 BUN 18 and creatinine 0.84 and blood sugar 270 and lactic acid 7.0 on admission, calcium 8.1, total bilirubin level is 4.6 AST 113 ALT 68 and alk phos 208 Troponin 0.012 and proBNP 2040 and albumin 3.0 Influenza A, B, RSV and COVID-19 PCR not detected. 10/10/2023 Patient was transferred to MICU. Overnight patient's respiratory status w orsened due to multifocal pneumonia and also patient is receiving fluids at 100 cc/h due to sepsis. Patient was intubated and is on assist-control. Patient is currently requiring pressor support. Chest x-ray this morning showed severe bilateral pulmonary infiltration which has worsened. Was given IV Lasix. 2D echocardiogram showed dilated LV and severe LV systolic dysfunction. Ejection fraction 30 to 35%. Laboratory showed WBC worsened to 26.6 hemoglobin 10.3 and platelets 190 Sodium 139 potassium 3.6 chloride 108 bicarb is 20 BUN 15 and creatinine 0.64 blood sugar 206 and A1c 6.8 lactic acid 5.4 this morning. Liver enzymes are elevated. Cardiology and pulmonary is on board. Patient is being continued on antibiotics changed to Zosyn. Procalcitonin level is elevated at 0.61. 10/11/2023 Patient is in the MICU. Intubated and sedated. On mechanical ventilator. Patient is also requiring pressor support with Levophed and also on dobutamine drip. Urine output remains low. Patient has been afebrile. Nutrition via NG tube. Patient was also started on IV hydration with normal saline at 75 cc/h. Chest x-ray showed multifocal airspace opacities are not significantly changed. Support tubes and proper positioning. Patient remains on antibiotics in the form of Zosyn. 2D echocardiogram showed left ventricular ejection fraction 30 to 35%. Mild right ventricular dilatation. Trace pericardial effusion and pleural effusion was identified. Laboratory data showed WBC 24.9 hemoglobin 9.6 and platelets 187 Sodium 137 potassium 4.2 chloride 102 bicarb is 26 BUN 25 and creatinine 1.1 and blood sugar 264. Patient is scheduled for paracentesis tomorrow. Blood cultures negative so far. Cardiology and pulmonary is on board. 10/12/2023 Patient is in the MICU. Remains intubated and sedated. On assist-control with respiratory of 20 tidal volume 350 and FiO2 40% and PEEP of 10. Continue to be on vasopressin and norepinephrine. Patient was also started on IV hydration with normal saline at 75 cc/h. Urine output is marginal. Patient remains on antibiotics Zosyn. Repeat chest x-ray this morning showed similar multifocal airspace opacities. Patient was given a dose of IV Lasix. Stable support tubes. Laboratory data showed WBC 24.6 hemoglobin 9.1 and platelets 144 BUN 40 and creatinine 1.09 and blood sugar is elevated at 312. Levemir dose increased to 12 units twice daily and continue with insulin sliding scale. Cardiology and critical care team is on board.Patient is scheduled to go for paracentesis today. 10/13/2023 Patient remains in the MICU. On assist-control with FiO2 35% and PEEP of 10. Tidal volume 350. Currently sedation is off. Chest x-ray showed stable exam mild pulmonary edema. Patient underwent ultrasound-guided paracentesis with 1800 cc clear straw- colored fluid drained. Pathology and culture is pending. Laboratory data showed WBC 25.4 hemoglobin 8.7 and platelets 127 BUN 49 creatinine 1.03 potassium 4.2 and blood sugar 159. Patient is being current on IV Solu-Medrol 60 mg every 6 hourly and is also on antibiotics, Zosyn. 10/14/2023 Patient is a pleasant 48 years old female who presents with bilateral pneumonia with acute hypoxic respiratory failure requiring intubation and mechanical ventilation. CTA of the chest was negative for PE which is done secondary to high d-dimer, CT of the abdomen showing thickened small bowel loops suspicious for enteritis, patient currently covered with Zosyn ProBNP is elevated 2039, chest x-ray showing mild was for congestion and ejection fraction is 30-35% patient is receiving IV Lasix and She Is Intubated. She Is Also on Salmeterol 60 Mg for Possible Acute COPD Exacerbation. Patient on Insulin Levemir 12 Units Twice Daily She Has Decompensated Liver Cirrhosis Status Post Paracentesis on 10/12 Where 1800 ML of Fluid Aspirated Patient today undergoing sedation holiday with propofol was off since yesterday Patient got agitated and she was placed on Precedex as well as IV morphine with little help so far Discussed with the bedside nurse Patient could not tolerate CPAP earlier, currently continued on mechanical ventilation with P5 and FiO2 of 40% Family at bedside 10/15/2023 Patient remains in the ICU intubated and sedated Over the last 2 days she was undergoing sedation holiday and propofol was stopped Today she was more agitated and she was placed back on a propofol Pulmonary level yesterday was 20 but given her worsening mentation we ordered a repeat ammonia level and KUB for abdomen slightly distended She had paracentesis related to her decompensated liver cirrhosis about 3 days ago with 1800 mL of fluid taken out We going to order a KUB but possible patient will require more paracentesis She received 1 dose of IV Lasix Normal saline 75 mL output 250 mL/h She remains on Zosyn and Solu-Medrol 60 mg Discussed with the bedside nurse 10/16/2023 Patient remains in the ICU intubated and sedated Yesterday after on repeat chest x-ray showing pulmonary congestion IV fluids of normal saline 50 mL was stopped and patient was started on IV Lasix 40 mg every 8 hours Repeat chest x-ray this morning testosterone pulmonary congestion, KUB showing nonobstructive pattern most likely patient has ascites related to her liver cirrhosis. Also patient placed on low-dose Lopressor suffers a percent respiratory blood pressure Metoprolol 25 mg 3 times a day per Sql Application Developer This she swelling is on board and patient glucose is controlled. 10/17/2023 Patient is from his ICU sedated and intubated. Today propofol was stopped and patient could follow command Weaning trial is attempting and patient was replaced back on before meals mode because of her tachypnea Also patient is planned to undergo paracentesis so between today and tomorrow for her ascites related to her liver cirrhosis. Extremities without obvious on Medrol 40 mg, Zosyn, IV Lasix 40 mg every 8 hours. 10/18/2023 Patient remains intubated and sedated in the ICU with pulmonary/critical care team followed closely. Patient under going sedation holiday for possible extubation She still has leukocytosis of 24,000, hemoglobin 8.6. IV fluids discontinued Currently on Solu-Medrol 40 mg, Zosyn and Lasix 40 mg 3 times a day. 10/19/2023 Patient is status post extubation today. She is awake alert and family at bedside trying to feed her. She developed a large direct well. She is calm pleasant looks little bit tired. Denies any specific symptoms with no chest pain or dyspnea. Abdomen is mildly distended but soft no tenderness. She remains on IV Solu-Medrol 40 mg twice daily, IV Lasix 40 twice daily. She is not an antibiotic I am resuming the care of the patient Patient awake alert looks relaxed and comfortable in bed She is eating her meal with no difficulty Her abdomen mildly distended She status post paracentesis with 4.2 L of fluid taken out She is mildly tachycardic with a heart attack and 106 Blood pressure 95/59 Sodium on the low side to 127 WBCs 20 9K, patient he has history of chronic leukocytosis since 2019 Hemoglobin stable 7.6. Platelet count 104 INR 1.6. Patient remains on IV salmeterol 40 mg and IV Lasix 40 mg 10/24/2023 Patient awake alert, sitting up in chair, looks pleasant Patient denies any specific symptoms, no dyspnea or chest pain or coughing. Abdominal distention is mild, improvement after paracentesis, no urinary symptoms and her bowel movement is formed. No confusion, no abdominal pain or tenderness. Her fluid overload is improving Actually she has mild hypovolemic hyponatremia today with sodium 125. Hemoglobin dropped to 6.7 and she is going to be given 1 unit of blood transfusion WBC is elevated at 28,000 which is chronic Chest x-ray showing improvement aeration. please refer to the for report She still on office on Medrol 4 mg twice daily and IV Lasix 40 mg twice daily 10/25/2023 Patient awake and alert Denies specific symptoms, to the risks some diet Abdomen mildly distended Patient had severe anemia yesterday at 6.7 received 1 unit of blood transfusion went up to 9.4 this morning her stool was dark suspicious for GI bleed so we repeated hemoglobin was 8.9. Patient blood pressure is stable but mildly tachycardic. Patient IV Lasix was held. I saw Medrol was held as well as IV Lovenox. Patient continued on IV Protonix, iron pills added We'll check for occult blood in the stool Transfer the patient to [facility], stress UNIT for more close monitoring Consult general surgery team 10/26/2023 Patient awake alert, mentation at baseline, she is somewhat whispering. Denies dyspnea. No abdominal pain or tenderness, abdomen mildly distended but soft No evidence of cellulitis, she has some oozing spots from her right thigh. She had 2 bowel movements which are black in color. Sodium 126 from 125 yesterday most likely hypervolemic hyponatremia Yesterday Lasix 40 mg IV twice a day was stopped, and we going to resume Lasix 40 mg by mouth daily. Also we will add Aldactone small dose Hemoglobin stable 8.9, surgery team are planning for further evaluation, and possible scope She was on IV Protonix Pressure is up again the umbilicus her NovoLog 3 units up to 5 units with meals 10/27/2023 Patient awake and alert at baseline, she is calm and relaxed not in distress She's getting lactulose and states she had one to 2 bowel movements yesterday, no blood Vitals stable. Hemoglobin from yesterday was stable, today labs are pending Patient is abdomen is mildly distended and after blood transfusion. She was placed on oral Lasix 40 mg daily and Aldactone 12.5 mg General surgeon on the case and plan for procedure today to check for acute blood loss anemia. She's not on anticoagulation and she is on IV Protonix Dietitian consult for her malnutrition there is no GI service in this facility during this week Patient awake alert, mildly lethargic but she looks comfortable. She is not eating much mainly drinking pop. Patient was encouraged to eat and she was placed on liquid diet with ensure. She status post paracentesis and around 3 L of fluid taken out yesterday Sodium is 129 after she was placed on IV Lasix and Aldactone Hemoglobin stable at 8.3 and she remains on IV Protonix 10/29/2023 Patient is very weak and lethargic but still awake. Her sugar was on the low side after we lowered her Levemir 10 units twice a day down to 14 units at bedtime, we going to lower dose down to 10 units at bedtime, especially patient also going for endoscopy tomorrow with surgery team for her anemia Patient has not eaten much and she was encouraged extensively. Last night she had some lower abdominal tenderness but still concerned. Repeat CT of the abdomen showing similar changes Hemoglobin 8.1, WBC 23,000 which is chronic, sodium 129 Increase lactulose 10 mg twice a day to 20 mg as she is having one bowel movemen t a become more lethargic Change of the Lasix to oral dose 10/30/2023 Dr Ramirez Patient seen and evaluated bedside, patient is awake and alert, patient does complain of weakness, WBC count 18.4 hemoglobin 8.7 platelet count 82,000. Serum sodium is 126 potassium 3.5 BUN and creatinine within normal limits blood glucose 125, 137. Noted to have sinus tachycardia. Patient did have paracentesis completed on 10/27 and 3.6 L of fluid was removed 10/31/2023: Patient seen and evaluated bedside, during my evaluation patient is alert to person place and situation. Goals of care discussion held with patient along with mother at bedside. We discussed options regarding hospice. At this point patient would want to get better and go to rehab. Patient was offered if EGD would need to be done or if she will be in agreement patient agreed. At this point patient does not want to pursue comfort measures. Mother at bedside and was part of the conversation. Hospice was consulted earlier after pulmonary medicine rounds. We will continue to get basic information from hospice, so that patient is aware of her options. Overall prognosis to remain guarded secondary to multiple comorbidities. Noted to have hemoglobin of 8.9 platelet count of 96,000, sodium of 125 creatinine of 0.38 liver profile reviewed. Patient to be given 1 dose of tolvaptan GENERAL: The patient is alert and oriented x3, ill appearance, pale appearance HEENT: Pupils are round and equally reacting to light. EOMI. CARDIOVASCULAR: S1 and S2 present. Tachycardia noted PULMONARY: Chest is clear to auscultation, no wheezing , no crackles. ABDOMEN: Soft, nontender, distended, MUSCULOSKELETAL: No joint swelling or deformity. EXTREMITIES: Bilateral lower extremity edema NEUROLOGICAL: Gross weakness noted SKIN: Pale appearance Objective - Vital Signs Vital signs: Vital Signs Temp 97.6 F 10/31/23 02:00 Pulse 114 H 10/31/23 02:00 Resp 18 10/31/23 02:00 BP 113/63 10/31/23 02:00 Pulse Ox 94 L 10/31/23 02:00 FiO2 50 10/18/23 14:10 Intake & Output 10/30/23 10/31/23 10/31/23 18:59 06:59 18:59 Intake Total 400 0 Output Total 100 Balance 300 0 Weight 40 kg Intake: Oral 400 0 Output: Stool 100 Other: Voiding Method External Catheter # Voids 1 1 # Bowel Movements 1 ABP, PAP, CO, CI - Last Documented Arterial Blood Pressure 111/50 - Labs CBC & Chem 7: 10/31/23 08:03 10/31/23 08:03 Labs: Abnormal Lab Results - Last 24 Hours (Table) 10/30/23 10/30/23 10/30/23 Range/Units 11:57 16:42 20:19 WBC (3.8-10.6) k/uL RBC (3.80-5.40) m/uL Hgb (11.4-16.0) gm/dL Hct (34.0-46.0) % MCV (80.0-100.0) fL MCHC (31.0-37.0) g/dL RDW (11.5-15.5) % Plt Count (150-450) k/uL Macrocytosis PT (10.0-12.5) sec INR (<1.2) Sodium (137-145) mmol/L Chloride (98-107) mmol/L Carbon Dioxide (22-30) mmol/L Creatinine (0.52-1.04) mg/dL Glucose (74-99) mg/dL POC Glucose (mg/dL) 230 H 500 H 61 L (70-110) mg/dL Calcium (8.4-10.2) mg/dL Total Bilirubin (0.2-1.3) mg/dL AST (14-36) U/L ALT (4-34) U/L Alkaline Phosphatase (38-126) U/L Total Protein (6.3-8.2) g/dL Albumin (3.5-5.0) g/dL 10/30/23 10/31/23 10/31/23 Range/Units 20:32 08:03 08:03 WBC 16.0 H (3.8-10.6) k/uL RBC 2.65 L (3.80-5.40) m/uL Hgb 8.9 L (11.4-16.0) gm/dL Hct 28.8 L (34.0-46.0) % MCV 108.6 H (80.0-100.0) fL MCHC 30.8 L (31.0-37.0) g/dL RDW 20.5 H (11.5-15.5) % Plt Count 96 L (150-450) k/uL Macrocytosis Marked A PT 16.3 H (10.0-12.5) sec INR 1.6 H (<1.2) Sodium (137-145) mmol/L Chloride (98-107) mmol/L Carbon Dioxide (22-30) mmol/L Creatinine (0.52-1.04) mg/dL Glucose (74-99) mg/dL POC Glucose (mg/dL) 270 H (70-110) mg/dL Calcium (8.4-10.2) mg/dL Total Bilirubin (0.2-1.3) mg/dL AST (14-36) U/L ALT (4-34) U/L Alkaline Phosphatase (38-126) U/L Total Protein (6.3-8.2) g/dL Albumin (3.5-5.0) g/dL 10/31/23 Range/Units 08:03 WBC (3.8-10.6) k/uL RBC (3.80-5.40) m/uL Hgb (11.4-16.0) gm/dL Hct (34.0-46.0) % MCV (80.0-100.0) fL MCHC (31.0-37.0) g/dL RDW (11.5-15.5) % Plt Count (150-450) k/uL Macrocytosis PT (10.0-12.5) sec INR (<1.2) Sodium 125 L (137-145) mmol/L Chloride 97 L (98-107) mmol/L Carbon Dioxide 21 L (22-30) mmol/L Creatinine 0.38 L (0.52-1.04) mg/dL Glucose 62 L (74-99) mg/dL POC Glucose (mg/dL) (70-110) mg/dL Calcium 7.2 L (8.4-10.2) mg/dL Total Bilirubin 3.8 H (0.2-1.3) mg/dL AST 60 H (14-36) U/L ALT 51 H (4-34) U/L Alkaline Phosphatase 170 H (38-126) U/L Total Protein 6.2 L (6.3-8.2) g/dL Albumin 2.3 L (3.5-5.0) g/dL Assessment and Plan Assessment: Assessment and plan * Symptomatic anemia with GI bleed, status post one unit of blood transfusion * Acute hypoxic respiratory failure secondary to multifocal pneumonia and pulmonary edema. Patient is 8 L high flow oxygen--> intubated on mechanical ventilator. * Pulmonary edema likely due to cardiogenic with low ejection fraction 30 to 3 5%. Acute HFrEF with ejection fraction 30 -45% * moderate calorie protein malnutrition * Multifocal pneumonia, finished her course of antibioitics * Sepsis/septic shock secondary to above. off pressor support * COPD with acute exacerbation * Lactic acidosis 7.0 on admission RESOLVED * Alcoholic liver cirrhosis * Ascites Patient is status post paracentesis on 10/27/23 * Hepatic steatosis and hyperbilirubinemia and elevated liver enzymes * History of severe alcohol abuse. Quit 5 years ago * History of chronic pancreatitis * Anxiety/depression Plan: * In regards to significant anemia transfuse to maintain hemoglobin more than 7 patient given 1 unit of packed RBC on 10/24, surgery following, general surgery to do EGD once sodium improves * In regards to decompensated liver cirrhosis >>> continue Lasix, continue Aldactone, continue thiamine, 1 dose of tolvaptan given * In regards to congestive heart failure continue patient on Aldactone, continue metoprolol * In regards to COPD continue patient on breathing treatments * In regards to hyponatremia, likely secondary to cirrhosis, patient given 1 dose of tolvaptan * Goals of care discussion held with patient and family * Continue SCDs for DVT prophylaxis Time with Patient: Greater than 30
--- NOTE | 2023-10-31 13:49 | P.PN ---
Subjective Progress Note Date: 10/31/23 CHIEF COMPLAINT: Pneumonia HISTORY OF PRESENT ILLNESS: Surgical service following in regards to anemia and GI bleed. Patient is EGD has been canceled for hyponatremia. She has had no further bleeding. Denies any abdominal pain. Denies any nausea or vomiting. Oral intake is poor. Mildly tachycardic. Afebrile. WBCs 16 Hgb stable at 8.9 platelets 96 sodium is 125 PHYSICAL EXAM: VITAL SIGNS: Reviewed. GENERAL: no acute distress. HEENT: Scleral icterus ABDOMEN: Soft. Distended. With fluid wave nontender. NEUROLOGIC: Awake and alert Skin: Jaundiced ASSESSMENT: 1. Acute GI bleed with anemia 2. Persistent hyponatremia 3. Pneumonia 4. CHF 5. Respiratory failure requiring mechanical ventilation and extubation 6. Ascites and history of liver cirrhosis status post paracentesis x 3 7. History of heavy alcohol abuse 8. Jaundice 9. Chronic thrombocytopenia 10. Severe protein calorie malnutrition PLAN: -Will need correction of hyponatremia at least 130 or higher to proceed with EGD. Discussed case with medicine service. They have consulted nephrology for hyponatremia management. -Continue to monitor hemoglobin -Continue PPI Physician Converter Operator note has been reviewed by physician. Signing provider agrees with the documented findings, assessment, and plan of care. Objective - Vital Signs Vital signs: Vital Signs Temp 98.0 F 10/31/23 09:30 Pulse 114 H 10/31/23 11:25 Resp 16 10/31/23 11:25 BP 110/67 10/31/23 11:25 Pulse Ox 93 L 10/31/23 11:25 FiO2 50 10/18/23 14:10 Intake & Output 10/30/23 10/31/23 10/31/23 18:59 06:59 18:59 Intake Total 400 0 Output Total 100 Balance 300 0 Weight 40 kg Intake: Oral 400 0 Output: Stool 100 Other: Voiding Method External Catheter External Catheter # Voids 1 1 # Bowel Movements 1 ABP, PAP, CO, CI - Last Documented Arterial Blood Pressure 111/50 - Labs CBC & Chem 7: 10/31/23 08:03 10/31/23 08:03 Labs: Abnormal Lab Results - Last 24 Hours (Table) 10/30/23 10/30/23 10/30/23 Range/Units 16:42 20:19 20:32 WBC (3.8-10.6) k/uL RBC (3.80-5.40) m/uL Hgb (11.4-16.0) gm/dL Hct (34.0-46.0) % MCV (80.0-100.0) fL MCHC (31.0-37.0) g/dL RDW (11.5-15.5) % Plt Count (150-450) k/uL Macrocytosis PT (10.0-12.5) sec INR (<1.2) Sodium (137-145) mmol/L Chloride (98-107) mmol/L Carbon Dioxide (22-30) mmol/L Creatinine (0.52-1.04) mg/dL Glucose (74-99) mg/dL POC Glucose (mg/dL) 500 H 61 L 270 H (70-110) mg/dL Calcium (8.4-10.2) mg/dL Total Bilirubin (0.2-1.3) mg/dL AST (14-36) U/L ALT (4-34) U/L Alkaline Phosphatase (38-126) U/L Total Protein (6.3-8.2) g/dL Albumin (3.5-5.0) g/dL 10/31/23 10/31/23 10/31/23 Range/Units 08:03 08:03 08:03 WBC 16.0 H (3.8-10.6) k/uL RBC 2.65 L (3.80-5.40) m/uL Hgb 8.9 L (11.4-16.0) gm/dL Hct 28.8 L (34.0-46.0) % MCV 108.6 H (80.0-100.0) fL MCHC 30.8 L (31.0-37.0) g/dL RDW 20.5 H (11.5-15.5) % Plt Count 96 L (150-450) k/uL Macrocytosis Marked A PT 16.3 H (10.0-12.5) sec INR 1.6 H (<1.2) Sodium 125 L (137-145) mmol/L Chloride 97 L (98-107) mmol/L Carbon Dioxide 21 L (22-30) mmol/L Creatinine 0.38 L (0.52-1.04) mg/dL Glucose 62 L (74-99) mg/dL POC Glucose (mg/dL) (70-110) mg/dL Calcium 7.2 L (8.4-10.2) mg/dL Total Bilirubin 3.8 H (0.2-1.3) mg/dL AST 60 H (14-36) U/L ALT 51 H (4-34) U/L Alkaline Phosphatase 170 H (38-126) U/L Total Protein 6.2 L (6.3-8.2) g/dL Albumin 2.3 L (3.5-5.0) g/dL
--- NOTE | 2023-10-31 14:07 | P.PN ---
Subjective Progress Note Date: 10/31/23 Principal diagnosis: Acute hypoxic respiratory failure secondary to pneumonia, sepsis, and acute pulmonary edema/systolic congestive heart failure This is a pleasant 48-year-old female patient with a known history of alcoholism with subsequent cirrhosis and chronic pancreatitis. Quit drinking approximately 5 years ago. She does have chronic and ongoing tobacco dependence, an xiety/depression, gastroesophageal reflux disease. She has a 2 week history of initially a dry nonproductive cough that had progressed into a loose congested cough with shortness of breath. She presented here to the emergency room yesterday. DT scan of the abdomen and pelvis revealed patchy bilateral airspace consolidation consistent with multifocal lobar pneumonia. Hepatic steatosis. Abdominal ascites. Wall thickening of the small bowel, correlate for mild enteritis versus spontaneous bacterial peritonitis. CT angiogram ruled out pulmonary embolism. There is again noted patchy bilateral airspace consolidation consistent with multilobar pneumonia. Chest x-ray shows similar multifocal airspace opacities. Count 16.5. Hemoglobin 10.0. Platelets 188. INR 1.7. D-dimer 2.80. Sodium 132. Potassium 3.7. Bicarb 24. BUN 18. Creatinine 0.84. Glucose 270. Initial lactic acid 7.0. Currently 2.2. AST 113. ALT 68. Alk phos 208. ProBNP 2040. Lipase 49. Serum alcohol less than 10. Viral screen negative. She is seen today in consultation in the emergency department. She is currently resting on a stretcher. She is awake and alert. She is requiring 10 L high flow nasal cannula to maintain O2 saturations in the 90s. She drops into the 70s on room air. She was initiated on ceftriaxone and azithromycin azithromycin. NicoDerm patch in place. She received 3 L of fluid resuscitation. Normal saline at 100 ML's per hour. On today's evaluation of 10/27/2023, seen the patient for a follow-up. The patient is doing well on room air oxygen. No evidence of any GI bleeding over the past 24 hours and the patient denies having any Bright red blood per rectum or melanotic stool. Meanwhile, the patient's hemoglobin is at 8.9 which is essentially stable compared to yesterday. Her platelet count is at 92. The white cell count is dropped down to 25 compared to 36 from yesterday. Rest of the electrolytes are essentially comparable with a potassium level of 2.9 and his sodium level is 125. BUN is at 20 with a creatinine of 0.4. LFTs are abnormal. This is consistent with her chronic liver disease. The patient otherwise has no other new complaints. She is awake and alert. She does have some mild degree of encephalopathy with chronic tiredness and sleepiness. She remains on lactulose 10 mg p.o. twice daily. She remains on Aldactone. She remains on Lasix 40 mg IV every 12 hours. On 10/28/2023, the patient is stable. No evidence of any GI bleeding over the past 24 to 48 hours. Meanwhile, the patient's Hemoglobin stable at 8.3 with a white cell count of 26 and a platelet count of 77. Awake and alert. No obvious signs of encephalopathy at this point in time. The patient's is clinically stable and hemodynamically stable at this point. The patient continues to be on Lasix 40 mg IV every 12 hours and the patient is also on Aldactone 25 mg p.o. daily. Rest of the medications remain unchanged. Oral intake is quite diminished. No focal neurological deficits. No signs of any encephalopathy. She is chronically fatigued and sleepy. The patient is seen today October 30, 2023 and follow-up on the regular medical floor. She is awake and alert in no acute distress. Sitting up in a chair at the bedside. She is maintaining good O2 saturations in the 90s on room air. No worsening shortness of breath, cough or congestion. White count 18.8 AST 68. ALT 51. She is status post 1 unit of packed red blood cells this admission. No current active GI bleed. She remains on diuretics. She remains quite weak and debilitated. Plan is for subacute rehab postdischarge. Patient was reevaluated today on 10/31/23, patient remains frail, chronically ill, extremely weak, mother is at bedside, patient continues to have recurrent ascites, and requiring repeat paracentesis procedures. Patient is on room air, O2 sats is 93%, apparently the patient and her mother are quite aware of the poor prognostic picture, mother is requesting at least evaluation by hospice, and I believe that would be appropriate. 2 years ago, patient had evaluation by liver specialist at [facility], and she was supposed to have further follow-up for possible down the line liver transplant at [facility]. However the patient did not follow at that time. CBC today showed WBC count of 16.0 hemoglobin 8.9 sodium is low at 125 Objective - Vital Signs Vital signs: Vital Signs Temp 98.0 F 10/31/23 09:30 Pulse 114 H 10/31/23 11:25 Resp 16 10/31/23 11:25 BP 110/67 10/31/23 11:25 Pulse Ox 93 L 10/31/23 11:25 FiO2 50 10/18/23 14:10 Intake & Output 10/30/23 10/31/23 10/31/23 18:59 06:59 18:59 Intake Total 400 0 Output Total 100 Balance 300 0 Weight 40 kg Intake: Oral 400 0 Output: Stool 100 Other: Voiding Method External Catheter External Catheter # Voids 1 1 # Bowel Movements 1 ABP, PAP, CO, CI - Last Documented Arterial Blood Pressure 111/50 - Exam GENERAL EXAM: Alert, pleasant 48-year-old female, in bed, on room air, HEAD: Normocephalic. EYES: Normal reaction of pupils, equal size. NOSE: Clear with pink turbinates. THROAT: No erythema or exudates. NECK: No masses, no JVD. CHEST: No chest wall deformity. LUNGS: Equal air entry with no crackles, wheeze, rhonchi or dullness. CVS: S1 and S2 normal with no audible murmur, regular rhythm. ABDOMEN: [place] distended, positive fluid wave, normal bowel sounds, no guarding or rigidity. SKIN: No rashes CENTRAL NERVOUS SYSTEM: No focal deficits, remains quite weak and debilitated, tone is normal in all 4 extremities. EXTREMITIES: There is 1+ peripheral edema. No clubbing, no cyanosis. Peripheral pulses are intact. - Labs CBC & Chem 7: 10/31/23 08:03 10/31/23 08:03 Labs: Abnormal Lab Results - Last 24 Hours (Table) 10/30/23 10/30/23 10/30/23 Range/Units 16:42 20:19 20:32 WBC (3.8-10.6) k/uL RBC (3.80-5.40) m/uL Hgb (11.4-16.0) gm/dL Hct (34.0-46.0) % MCV (80.0-100.0) fL MCHC (31.0-37.0) g/dL RDW (11.5-15.5) % Plt Count (150-450) k/uL Macrocytosis PT (10.0-12.5) sec INR (<1.2) Sodium (137-145) mmol/L Chloride (98-107) mmol/L Carbon Dioxide (22-30) mmol/L Creatinine (0.52-1.04) mg/dL Glucose (74-99) mg/dL POC Glucose (mg/dL) 500 H 61 L 270 H (70-110) mg/dL Calcium (8.4-10.2) mg/dL Total Bilirubin (0.2-1.3) mg/dL AST (14-36) U/L ALT (4-34) U/L Alkaline Phosphatase (38-126) U/L Total Protein (6.3-8.2) g/dL Albumin (3.5-5.0) g/dL 10/31/23 10/31/23 10/31/23 Range/Units 08:03 08:03 08:03 WBC 16.0 H (3.8-10.6) k/uL RBC 2.65 L (3.80-5.40) m/uL Hgb 8.9 L (11.4-16.0) gm/dL Hct 28.8 L (34.0-46.0) % MCV 108.6 H (80.0-100.0) fL MCHC 30.8 L (31.0-37.0) g/dL RDW 20.5 H (11.5-15.5) % Plt Count 96 L (150-450) k/uL Macrocytosis Marked A PT 16.3 H (10.0-12.5) sec INR 1.6 H (<1.2) Sodium 125 L (137-145) mmol/L Chloride 97 L (98-107) mmol/L Carbon Dioxide 21 L (22-30) mmol/L Creatinine 0.38 L (0.52-1.04) mg/dL Glucose 62 L (74-99) mg/dL POC Glucose (mg/dL) (70-110) mg/dL Calcium 7.2 L (8.4-10.2) mg/dL Total Bilirubin 3.8 H (0.2-1.3) mg/dL AST 60 H (14-36) U/L ALT 51 H (4-34) U/L Alkaline Phosphatase 170 H (38-126) U/L Total Protein 6.2 L (6.3-8.2) g/dL Albumin 2.3 L (3.5-5.0) g/dL Assessment and Plan Assessment: Pression: Acute hypoxic respiratory failure secondary to acute bilateral multilobar pneumonia as well as some fluid overload/CHF, status post intubation and mechanical ventilation on October 10, 2023. S/P successful extubation on October 18, 2023. Recovered and on room air Acute pulmonary edema, cardiogenic in origin, with an ejection fraction of 20% Hypovolemic hyponatremia Ascites, status post paracentesis abdominis on 10/17/2023 and again on 10/23/2023 Chronic and ongoing tobacco dependence History of heavy alcohol abuse however quit 5 years ago History of cirrhosis secondary to above History of chronic pancreatitis secondary to above History of anxiety/depression Jaundice to the bilirubin level remains elevated with elevated LFTs Profound motor weakness, generalized secondary to above-mentioned comorbidities and suspect some component of critical illness polyneuropathy Chronic hyponatremia related to liver cirrhosis Diabetes mellitus secondary to above maintained on Levemir insulin 10 units daily along with sliding scale coverage Acute on top of chronic anemia hemoglobin is stable for now without evidence of any GI bleed Chronic thrombocytopenia related to liver disease, platelet count are stable Recommendation: Continue present supportive care measures Mother is requesting possible hospice evaluation Will consult hospice, Continue physical therapy, Will eventually need referral to subacute rehab. Will continue to follow Time with Patient: Less than 30
[2023-10-31 16:30] LABS: Glucose,Whole Blood 301 mg/dL (70-110)
[2023-10-31] MEDS: TOLVAPTAN 15 MG TABLET PO ONE (17:43)
[2023-10-31 20:30] LABS: Glucose,Whole Blood 243 mg/dL (70-110)
[2023-10-31] MEDS: SPIRONOLACTONE 25 MG TAB PO SCH (21:56)
[2023-11-01 06:02] LABS: Glucose,Whole Blood 123 mg/dL (70-110)
[2023-11-01 09:01] LABS: Anisocytosis Moderate; HCT 26.4 % (34.0-46.0); HGB 8.3 gm/dL (11.4-16.0); Hypochromasia Marked; MCHC 31.3 g/dL (31.0-37.0); MCV 108.6 fL (80.0-100.0); Macrocytosis Marked; Mean Platelet Volume 10.4; RBC 2.43 m/uL (3.80-5.40); RDW 20.2 % (11.5-15.5); WBC 16.3 k/uL (3.8-10.6)
[2023-11-01 09:03] LABS: Platelet Count 91 k/uL (150-450)
[2023-11-01 09:34] LABS: ALT 47 U/L (4-34); African American GFR (CKD) >90 (>60 ml/min/1.73 sqM); Anion Gap 7 mmol/L; Blood Urea Nitrogen 13 mg/dL (7-17); Calcium 7.2 mg/dL (8.4-10.2); Carbon Dioxide 20 mmol/L (22-30); Chloride 97 mmol/L (98-107); Glucose 95 mg/dL (74-99); Non-African American GFR(CKD) >90 (>60 ml/min/1.73 sqM); Sodium 124 mmol/L (137-145); Total Bilirubin 3.4 mg/dL (0.2-1.3); Total Protein 5.6 g/dL (6.3-8.2)
[2023-11-01 09:39] LABS: AST 55 U/L (14-36); Alkaline Phosphatase 182 U/L (38-126); Magnesium 1.6 mg/dL (1.6-2.3); Potassium 3.4 mmol/L (3.5-5.1)
[2023-11-01 11:27] LABS: Glucose,Whole Blood 122 mg/dL (70-110)
--- NOTE | 2023-11-01 11:47 | P.NPCON ---
History of Present Illness - Reason for Consult hyponatremia - History of Present Illness Reason for consultation: Hyponatremia History of present illness: Patient is a 48-year-old female seen in renal consultation for hyponatremia. Patient came to the hospital on October 08, 2023 due to shortness of breath and concern for pneumonia. Patient was subsequently intubated and was in the ICU for several days. She is now extubated and out of the ICU. Patient has history of liver cirrhosis from alcohol abuse. She is not a candidate for liver transplant according to the family members. Patient states she stopped drinking alcohol about 4 weeks ago. Patient has required multiple paracentesis this adm ission with most recent one being October 27, 2023 with 3.6 L drained. Sodium level has been in the 120s the last few days and is 124 today. Patient has history of diabetes. She is currently on Lasix as well as spironolactone. Patient also developed acute GI bleed this admission with hemoglobin as low as 6.7 requiring blood transfusion. She is being followed by surgery and is scheduled for EGD today. Patient also has cardiomyopathy ejection fraction of 30 to 35%. Oral intake is poor. No gross hematuria or dysuria. Vital signs are stable. General: No acute distress. HEENT: Head exam is unremarkable. LUNGS: No audible rhonchi or wheezes. HEART: Rate and Rhythm are regular. ABDOMEN: Mild distention. EXTREMITITES: No edema. Past Medical History Past Medical History: No Reported History Additional Past Medical History / Comment(s): Pt admitted to [facility] on 08/05/19 with acute pancreatitis/htn urgency-she signed out AMA to go home and care for her dog (couldn't find anyone to help). Other hx: IBS, bronchitis, ETOH abuse. History of Any Multi-Drug Resistant Organisms: None Reported Past Surgical History: No Surgical Hx Reported Additional Past Surgical History / Comment(s): EGD, colonoscopies. Past Anesthesia/Blood Transfusion Reactions: No Reported Reaction Past Psychological History: Anxiety, Depression Past Alcohol Use History: Daily, Heavy Past Drug Use History: None Reported - Past Family History Father Additional Family Medical History / Comment(s): Father is from [place]. Mother Family Medical History: No Reported History Additional Family Medical History / Comment(s): Mother is alive with history of asthma, pancreatitis, alchohol abuse. Patient does not have any brothers, sisters, children. Medications and Allergies Home Medications Medication Instructions Recorded Confirmed Type PARoxetine HCL [Paxil] 40 mg PO HS 05/13/18 10/08/23 History ALPRAZolam [Xanax] 1 mg PO HS 08/29/20 10/08/23 History Azithromycin [Zithromax] 500 mg PO DAILY 10/08/23 10/08/23 History Furosemide [Lasix] 20 mg PO HS 10/08/23 10/08/23 History Pantoprazole Sodium [Protonix] 80 mg PO DAILY 10/08/23 10/08/23 History Purezzz 1 tab PO HS 10/08/23 10/08/23 History Spironolactone [Aldactone] 50 mg PO DAILY 10/08/23 10/08/23 History diphenhydrAMINE HCL [Benadryl] 25 mg PO HS 10/08/23 10/08/23 History guaiFENesin [Mucinex] 600 mg PO Q12H 10/08/23 10/08/23 History predniSONE [Deltasone] 40 mg PO DAILY 10/08/23 10/08/23 History Allergies Allergy/AdvReac Type Severity Reaction Status Date / Time No Known Allergies Allergy Verified 10/08/23 22:08 Physical Exam Vitals: Vital Signs Temp Pulse Resp BP Pulse Ox 11/01/23 02:00 98.3 F 103 H 18 107/67 95 10/31/23 20:10 98.1 F 110 H 17 118/73 97 10/31/23 17:11 97.9 F 109 H 17 112/71 95 10/31/23 15:40 98.1 F 110 H 16 114/71 97 Intake and Output 10/31/23 11/01/23 11/01/23 22:59 06:59 14:59 Other: Voiding Method Diaper Incontinent # Voids 1 # Bowel Movements 1 Results - Lab Results Most recent lab results ABG pH 7.51 (7.35-7.45) H 10/18/23 13:55 ABG pCO2 45 mmHg (35-45) 10/18/23 13:55 ABG pO2 78 mmHg (83-108) L 10/18/23 13:55 ABG HCO3 36 mmol/L (21-25) H 10/18/23 13:55 ABG O2 Saturation 96.7 % (94-97) 10/18/23 13:55 Calcium 7.2 mg/dL (8.4-10.2) L 11/01/23 07:56 Phosphorus 3.9 mg/dL (2.5-4.5) 10/08/23 21:08 Magnesium 1.6 mg/dL (1.6-2.3) 11/01/23 07:56 11/01/23 07:56 11/01/23 07:56 Assessment and Plan Plan: Assessment: 1. Hyponatremia, hypervolemic. Component of poor solute intake. Sodium level 124 today. 2. Alcohol induced liver cirrhosis. 3. Ascites requiring multiple paracentesis this admission with most recent one being October 27, 2023 with 3.6 L drained. 4. Acute GI bleed status post blood transfusion this admission. EGD today. 5. Hypokalemia from diuresis and poor intake. 6. Acute hypoxic respiratory failure secondary to pneumonia. Plan: Maintain Lasix and Aldactone. On potassium supplementation. Add oral magnesium oxide. Add 1200 cc fluid restriction. Encouraged oral intake, particularly protein. Samsca 15 mg once today. Repeat labs in the morning. Check iron studies. Hospice also consulted. Thank you for the consultation. I will continue to follow the patient with you during her hospital stay.
[2023-11-01] MEDS: ALBUMIN HUMAN 25% 50 ML in EMPTY BAG 1 BAG IVPB SCH (12:13)
--- NOTE | 2023-11-01 13:16 | P.PN ---
Subjective Progress Note Date: 11/01/23 The patient is seen today October 30, 2023 and follow-up on the regular medical floor. She is awake and alert in no acute distress. Sitting up in a chair at the bedside. She is maintaining good O2 saturations in the 90s on room air. No worsening shortness of breath, cough or congestion. White count 18.8 AST 68. ALT 51. She is status post 1 unit of packed red blood cells this admission. No current active GI bleed. She remains on diuretics. She remains quite weak and debilitated. Plan is for subacute rehab postdischarge. Patient was reevaluated today on 10/31/23, patient remains frail, chronically ill, extremely weak, mother is at bedside, patient continues to have recurrent ascites, and requiring repeat paracentesis procedures. Patient is on room air, O2 sats is 93%, apparently the patient and her mother are quite aware of the poor prognostic picture, mother is requesting at least evaluation by hospice, and I believe that would be appropriate. 2 years ago, patient had evaluation by liver specialist at [facility], and she was supposed to have further follow-up for possible down the line liver transplant at [facility]. However the patient did not follow at that time. CBC today showed WBC count of 16.0 hemoglobin 8.9 sodium is low at 125 The patient is seen today November 01, 2023 in follow-up on the selective care unit. She is currently sitting up in bed. Awake and alert in no acute distress. Maintaining O2 saturations in the 90s on room air. She remains quite weak and debilitated. Her voice is soft. She did undergo a repeat paracentesis today. White count 16.3. Hemoglobin 8.3. Platelets 91,000. Sodium 124. Potassium 3.4. Bicarb 20. BUN 13. Creatinine 0.40. AST 55. ALT 47. Alk phos 182. She remains on diuretics. Objective - Vital Signs Vital signs: Vital Signs Temp 98.3 F 11/01/23 02:00 Pulse 85 11/01/23 12:55 Resp 16 11/01/23 12:55 BP 91/53 11/01/23 12:55 Pulse Ox 97 11/01/23 12:55 FiO2 50 10/18/23 14:10 Intake & Output 10/31/23 11/01/23 11/01/23 18:59 06:59 18:59 Intake Total 0 Balance 0 Intake: Oral 0 Other: Voiding Method External Catheter Diaper Incontinent # Voids 1 # Bowel Movements 1 ABP, PAP, CO, CI - Last Documented Arterial Blood Pressure 111/50 - Exam GENERAL EXAM: Alert, thin, frail 48-year-old female, very weak and debilitated, on room air, up in a chair, in no apparent distress. HEAD: Normocephalic. EYES: Normal reaction of pupils, equal size. NOSE: Clear with pink turbinates. THROAT: No erythema or exudates. NECK: No masses, no JVD. CHEST: No chest wall deformity. LUNGS: Equal air entry with no crackles, wheeze, rhonchi or dullness. CVS: S1 and S2 normal with no audible murmur, regular rhythm. ABDOMEN: Distended, normal bowel sounds, no guarding or rigidity. SPINE: No scoliosis or deformity SKIN: No rashes CENTRAL NERVOUS SYSTEM: No focal deficits, remains quite weak and debilitated, tone is normal in all 4 extremities. EXTREMITIES: There is 1+ peripheral edema. No clubbing, no cyanosis. Peripheral pulses are intact. - Labs CBC & Chem 7: 11/01/23 07:56 11/01/23 07:56 Labs: Abnormal Lab Results - Last 24 Hours (Table) 10/31/23 10/31/23 11/01/23 Range/Units 16:27 20:29 06:01 WBC (3.8-10.6) k/uL RBC (3.80-5.40) m/uL Hgb (11.4-16.0) gm/dL Hct (34.0-46.0) % MCV (80.0-100.0) fL RDW (11.5-15.5) % Plt Count (150-450) k/uL Macrocytosis Sodium (137-145) mmol/L Potassium (3.5-5.1) mmol/L Chloride (98-107) mmol/L Carbon Dioxide (22-30) mmol/L Creatinine (0.52-1.04) mg/dL POC Glucose (mg/dL) 301 H 243 H 123 H (70-110) mg/dL Calcium (8.4-10.2) mg/dL Total Bilirubin (0.2-1.3) mg/dL AST (14-36) U/L ALT (4-34) U/L Alkaline Phosphatase (38-126) U/L Total Protein (6.3-8.2) g/dL Albumin (3.5-5.0) g/dL 11/01/23 11/01/23 11/01/23 Range/Units 07:56 07:56 11:25 WBC 16.3 H (3.8-10.6) k/uL RBC 2.43 L (3.80-5.40) m/uL Hgb 8.3 L (11.4-16.0) gm/dL Hct 26.4 L (34.0-46.0) % MCV 108.6 H (80.0-100.0) fL RDW 20.2 H (11.5-15.5) % Plt Count 91 L (150-450) k/uL Macrocytosis Marked A Sodium 124 L (137-145) mmol/L Potassium 3.4 L (3.5-5.1) mmol/L Chloride 97 L (98-107) mmol/L Carbon Dioxide 20 L (22-30) mmol/L Creatinine 0.40 L (0.52-1.04) mg/dL POC Glucose (mg/dL) 122 H (70-110) mg/dL Calcium 7.2 L (8.4-10.2) mg/dL Total Bilirubin 3.4 H (0.2-1.3) mg/dL AST 55 H (14-36) U/L ALT 47 H (4-34) U/L Alkaline Phosphatase 182 H (38-126) U/L Total Protein 5.6 L (6.3-8.2) g/dL Albumin 2.0 L (3.5-5.0) g/dL Assessment and Plan Assessment: Acute hypoxic respiratory failure secondary to acute bilateral multilobar p neum[place] as well as some fluid overload/CHF, status post intubation and mec hanical ventilation on October 10, 2023. S/P successful extubation on October 18, 2023. Recovered and on room air Acute pulmonary edema, cardiogenic in origin, with an ejection fraction of 20% Acute exacerbation of chronic obstructive pulmonary disease secondary to above Ascites, status post paracentesis abdominis on 10/17/2023, 10/23/2023 and 11/01/2023 Chronic and ongoing tobacco dependence History of heavy alcohol abuse. Now admits to drinking up to time of admission History of cirrhosis secondary to above History of previous workup for possible liver transplant in 2 years ago at [facility] however the patient had not quit drinking History of chronic pancreatitis secondary to above History of anxiety/depression Jaundice to the bilirubin level remains elevated with elevated LFTs Profound motor weakness, generalized secondary to above-mentioned comorbidities Chronic hyponatremia related to liver cirrhosis Diabetes mellitus secondary to above maintained on Levemir insulin 10 units daily along with sliding scale coverage Acute on top of chronic anemia hemoglobin is stable for now without evidence of any GI bleed Chronic thrombocytopenia related to liver disease, platelet count are stable Leukocytosis, improving Plan: The patient was seen and evaluated Labs and medications reviewed Currently stable and on room air Plan is for repeat paracentesis today She remains quite weak and debilitated Awaiting subacute rehabilitation placement Her parents will be seeking guardianship I have personally seen and examined the patient, performed the documentation and the assessment and plan as written. Number of minutes spent on the visit: 10.
--- NOTE | 2023-11-01 13:23 | P.PN ---
Subjective Progress Note Date: 11/01/23 48-year-old female with a past medical history of severe alcohol abuse, quit 5 years ago, alcoholic liver cirrhosis and is on follow-up with her bulk clerk at [facility], IBS, anxiety/depression and presents to ER with complaints of worsening shortness of breath. Patient states that she has been having shortness of breath for the past week and a half and did get worse in the last few days. Patient tried using her breathing treatments at home but did not get improvement. Patient was recently given antibiotics and prednisone by her physician. She has been increasingly weak and not feeling well. Patient presented to ER for evaluation. He was also complaining of cough without any sputum production. Also complaining of chest tightness and anxiety. Denies any leg swelling. No nausea or vomiting. Patient is also having increased abdominal girth. No prior history of paracentesis as per patient. Denies any fever at home. On admission patient was tachycardic and tachypneic and pulse ox 80% on room air. Currently requiring 8 L of oxygen via nasal cannula. CT of the abdomen pelvis showed patchy bilateral airspace consolidation consistent with multilobar pneumonia. Hepatic steatosis, abdominal ascites. Wall thickening of small bowel correlate for mild enteritis versus spontaneous bacterial peritonitis. CTA chest showed no PE. Patchy bilateral airspace consolidation consistent with multilobar pneumonia. Chest x-ray showed similar multifocal airspace opacities. Laboratory data showed WBC 16.5 hemoglobin 10.0 MCV 102.4 and platelets 188 and neutrophils 14.4 INR 1.7, D-dimer 2.8 Sodium 132 potassium 3.7 chloride 95 bicarbonate 24 BUN 18 and creatinine 0.84 and blood sugar 270 and lactic acid 7.0 on admission, calcium 8.1, total bilirubin level is 4.6 AST 113 ALT 68 and alk phos 208 Troponin 0.012 and proBNP 2040 and albumin 3.0 Influenza A, B, RSV and COVID-19 PCR not detected. 10/10/2023 Patient was transferred to MICU. Overnight patient's respiratory status w orsened due to multifocal pneumonia and also patient is receiving fluids at 100 cc/h due to sepsis. Patient was intubated and is on assist-control. Patient is currently requiring pressor support. Chest x-ray this morning showed severe bilateral pulmonary infiltration which has worsened. Was given IV Lasix. 2D echocardiogram showed dilated LV and severe LV systolic dysfunction. Ejection fraction 30 to 35%. Laboratory showed WBC worsened to 26.6 hemoglobin 10.3 and platelets 190 Sodium 139 potassium 3.6 chloride 108 bicarb is 20 BUN 15 and creatinine 0.64 blood sugar 206 and A1c 6.8 lactic acid 5.4 this morning. Liver enzymes are elevated. Cardiology and pulmonary is on board. Patient is being continued on antibiotics changed to Zosyn. Procalcitonin level is elevated at 0.61. 10/11/2023 Patient is in the MICU. Intubated and sedated. On mechanical ventilator. Patient is also requiring pressor support with Levophed and also on dobutamine drip. Urine output remains low. Patient has been afebrile. Nutrition via NG tube. Patient was also started on IV hydration with normal saline at 75 cc/h. Chest x-ray showed multifocal airspace opacities are not significantly changed. Support tubes and proper positioning. Patient remains on antibiotics in the form of Zosyn. 2D echocardiogram showed left ventricular ejection fraction 30 to 35%. Mild right ventricular dilatation. Trace pericardial effusion and pleural effusion was identified. Laboratory data showed WBC 24.9 hemoglobin 9.6 and platelets 187 Sodium 137 potassium 4.2 chloride 102 bicarb is 26 BUN 25 and creatinine 1.1 and blood sugar 264. Patient is scheduled for paracentesis tomorrow. Blood cultures negative so far. Cardiology and pulmonary is on board. 10/12/2023 Patient is in the MICU. Remains intubated and sedated. On assist-control with respiratory of 20 tidal volume 350 and FiO2 40% and PEEP of 10. Continue to be on vasopressin and norepinephrine. Patient was also started on IV hydration with normal saline at 75 cc/h. Urine output is marginal. Patient remains on antibiotics Zosyn. Repeat chest x-ray this morning showed similar multifocal airspace opacities. Patient was given a dose of IV Lasix. Stable support tubes. Laboratory data showed WBC 24.6 hemoglobin 9.1 and platelets 144 BUN 40 and creatinine 1.09 and blood sugar is elevated at 312. Levemir dose increased to 12 units twice daily and continue with insulin sliding scale. Cardiology and critical care team is on board.Patient is scheduled to go for paracentesis today. 10/13/2023 Patient remains in the MICU. On assist-control with FiO2 35% and PEEP of 10. Tidal volume 350. Currently sedation is off. Chest x-ray showed stable exam mild pulmonary edema. Patient underwent ultrasound-guided paracentesis with 1800 cc clear straw- colored fluid drained. Pathology and culture is pending. Laboratory data showed WBC 25.4 hemoglobin 8.7 and platelets 127 BUN 49 creatinine 1.03 potassium 4.2 and blood sugar 159. Patient is being current on IV Solu-Medrol 60 mg every 6 hourly and is also on antibiotics, Zosyn. 10/14/2023 Patient is a pleasant 48 years old female who presents with bilateral pneumonia with acute hypoxic respiratory failure requiring intubation and mechanical ventilation. CTA of the chest was negative for PE which is done secondary to high d-dimer, CT of the abdomen showing thickened small bowel loops suspicious for enteritis, patient currently covered with Zosyn ProBNP is elevated 2039, chest x-ray showing mild was for congestion and ejection fraction is 30-35% patient is receiving IV Lasix and She Is Intubated. She Is Also on Salmeterol 60 Mg for Possible Acute COPD Exacerbation. Patient on Insulin Levemir 12 Units Twice Daily She Has Decompensated Liver Cirrhosis Status Post Paracentesis on 10/12 Where 1800 ML of Fluid Aspirated Patient today undergoing sedation holiday with propofol was off since yesterday Patient got agitated and she was placed on Precedex as well as IV morphine with little help so far Discussed with the bedside nurse Patient could not tolerate CPAP earlier, currently continued on mechanical ventilation with P5 and FiO2 of 40% Family at bedside 10/15/2023 Patient remains in the ICU intubated and sedated Over the last 2 days she was undergoing sedation holiday and propofol was stopped Today she was more agitated and she was placed back on a propofol Pulmonary level yesterday was 20 but given her worsening mentation we ordered a repeat ammonia level and KUB for abdomen slightly distended She had paracentesis related to her decompensated liver cirrhosis about 3 days ago with 1800 mL of fluid taken out We going to order a KUB but possible patient will require more paracentesis She received 1 dose of IV Lasix Normal saline 75 mL output 250 mL/h She remains on Zosyn and Solu-Medrol 60 mg Discussed with the bedside nurse 10/16/2023 Patient remains in the ICU intubated and sedated Yesterday after on repeat chest x-ray showing pulmonary congestion IV fluids of normal saline 50 mL was stopped and patient was started on IV Lasix 40 mg every 8 hours Repeat chest x-ray this morning testosterone pulmonary congestion, KUB showing nonobstructive pattern most likely patient has ascites related to her liver cirrhosis. 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 10/17/2023 Patient is from his ICU sedated and intubated. Today propofol was stopped and patient could follow command Weaning trial is attempting and patient was replaced back on before meals mode because of her tachypnea Also patient is planned to undergo paracentesis so between today and tomorrow for her ascites related to her liver cirrhosis. Extremities without obvious on Medrol 40 mg, Zosyn, IV Lasix 40 mg every 8 hours. 10/18/2023 Patient remains intubated and sedated in the ICU with pulmonary/critical care team followed closely. Patient under going sedation holiday for possible extubation She still has leukocytosis of 24,000, hemoglobin 8.6. IV fluids discontinued Currently on Solu-Medrol 40 mg, Zosyn and Lasix 40 mg 3 times a day. 10/19/2023 Patient is status post extubation today. She is awake alert and family at bedside trying to feed her. She developed a large direct well. She is calm pleasant looks little bit tired. Denies any specific symptoms with no chest pain or dyspnea. Abdomen is mildly distended but soft no tenderness. She remains on IV Solu-Medrol 40 mg twice daily, IV Lasix 40 twice daily. She is not an antibiotic I am resuming the care of the patient Patient awake alert looks relaxed and comfortable in bed She is eating her meal with no difficulty Her abdomen mildly distended She status post paracentesis with 4.2 L of fluid taken out She is mildly tachycardic with a heart attack and 106 Blood pressure 95/59 Sodium on the low side to 127 WBCs 20 9K, patient he has history of chronic leukocytosis since 2019 Hemoglobin stable 7.6. Platelet count 104 INR 1.6. Patient remains on IV salmeterol 40 mg and IV Lasix 40 mg 10/24/2023 Patient awake alert, sitting up in chair, looks pleasant Patient denies any specific symptoms, no dyspnea or chest pain or coughing. Abdominal distention is mild, improvement after paracentesis, no urinary symptoms and her bowel movement is formed. No confusion, no abdominal pain or tenderness. Her fluid overload is improving Actually she has mild hypovolemic hyponatremia today with sodium 125. Hemoglobin dropped to 6.7 and she is going to be given 1 unit of blood transfusion WBC is elevated at 28,000 which is chronic Chest x-ray showing improvement aeration. please refer to the for report She still on office on Medrol 4 mg twice daily and IV Lasix 40 mg twice daily 10/25/2023 Patient awake and alert Denies specific symptoms, to the risks some diet Abdomen mildly distended Patient had severe anemia yesterday at 6.7 received 1 unit of blood transfusion went up to 9.4 this morning her stool was dark suspicious for GI bleed so we repeated hemoglobin was 8.9. Patient blood pressure is stable but mildly tachycardic. Patient IV Lasix was held. I saw Medrol was held as well as IV Lovenox. Patient continued on IV Protonix, iron pills added We'll check for occult blood in the stool Transfer the patient to [facility], stress UNIT for more close monitoring Consult general surgery team 10/26/2023 Patient awake alert, mentation at baseline, she is somewhat whispering. Denies dyspnea. No abdominal pain or tenderness, abdomen mildly distended but soft No evidence of cellulitis, she has some oozing spots from her right thigh. She had 2 bowel movements which are black in color. Sodium 126 from 125 yesterday most likely hypervolemic hyponatremia Yesterday Lasix 40 mg IV twice a day was stopped, and we going to resume Lasix 40 mg by mouth daily. Also we will add Aldactone small dose Hemoglobin stable 8.9, surgery team are planning for further evaluation, and possible scope She was on IV Protonix Pressure is up again the umbilicus her NovoLog 3 units up to 5 units with meals 10/27/2023 Patient awake and alert at baseline, she is calm and relaxed not in distress She's getting lactulose and states she had one to 2 bowel movements yesterday, no blood Vitals stable. Hemoglobin from yesterday was stable, today labs are pending Patient is abdomen is mildly distended and after blood transfusion. She was placed on oral Lasix 40 mg daily and Aldactone 12.5 mg General surgeon on the case and plan for procedure today to check for acute blood loss anemia. She's not on anticoagulation and she is on IV Protonix Dietitian consult for her malnutrition there is no GI service in this facility during this week Patient awake alert, mildly lethargic but she looks comfortable. She is not eating much mainly drinking pop. Patient was encouraged to eat and she was placed on liquid diet with ensure. She status post paracentesis and around 3 L of fluid taken out yesterday Sodium is 129 after she was placed on IV Lasix and Aldactone Hemoglobin stable at 8.3 and she remains on IV Protonix 10/29/2023 Patient is very weak and lethargic but still awake. Her sugar was on the low side after we lowered her Levemir 10 units twice a day down to 14 units at bedtime, we going to lower dose down to 10 units at bedtime, especially patient also going for endoscopy tomorrow with surgery team for her anemia Patient has not eaten much and she was encouraged extensively. Last night she had some lower abdominal tenderness but still concerned. Repeat CT of the abdomen showing similar changes Hemoglobin 8.1, WBC 23,000 which is chronic, sodium 129 Increase lactulose 10 mg twice a day to 20 mg as she is having one bowel movemen t a become more lethargic Change of the Lasix to oral dose 10/30/2023 Dr Ramirez Patient seen and evaluated bedside, patient is awake and alert, patient does complain of weakness, WBC count 18.4 hemoglobin 8.7 platelet count 82,000. Serum sodium is 126 potassium 3.5 BUN and creatinine within normal limits blood glucose 125, 137. Noted to have sinus tachycardia. Patient did have paracentesis completed on 10/27 and 3.6 L of fluid was removed 10/31/2023: Patient seen and evaluated bedside, during my evaluation patient is alert to person place and situation. Goals of care discussion held with patient along with mother at bedside. We discussed options regarding hospice. At this point patient would want to get better and go to rehab. Patient was offered if EGD would need to be done or if she will be in agreement patient agreed. At this point patient does not want to pursue comfort measures. Mother at bedside and was part of the conversation. Hospice was consulted earlier after pulmonary medicine rounds. We will continue to get basic information from hospice, so that patient is aware of her options. Overall prognosis to remain guarded secondary to multiple comorbidities. Noted to have hemoglobin of 8.9 platelet count of 96,000, sodium of 125 creatinine of 0.38 liver profile reviewed. Patient to be given 1 dose of tolvaptan 11/01/2023: Patient seen and evaluated bedside, patient is s/p paracentesis, patient is alert to person, does appear confused, goals of care discussed patient is open to transitioning to hospice. Waiting for gastroenterology evaluation as well patient accompanied by mother and father at bedside. Continue current management appreciate input from nephrology GENERAL: The patient is alert and oriented x 1 , ill appearance, pale appearance HEENT: Pupils are round and equally reacting to light. EOMI. CARDIOVASCULAR: S1 and S2 present. Tachycardia noted PULMONARY: Chest is clear to auscultation, no wheezing , no crackles. ABDOMEN: Soft, nontender, distended, MUSCULOSKELETAL: No joint swelling or deformity. EXTREMITIES: Bilateral lower extremity edema NEUROLOGICAL: Gross weakness noted SKIN: Pale appearance Objective - Vital Signs Vital signs: Vital Signs Temp 98.3 F 11/01/23 02:00 Pulse 85 11/01/23 11:42 Resp 16 11/01/23 11:42 BP 95/63 11/01/23 11:42 Pulse Ox 98 11/01/23 11:42 FiO2 50 10/18/23 14:10 Intake & Output 10/31/23 11/01/23 11/01/23 18:59 06:59 18:59 Intake Total 0 Balance 0 Intake: Oral 0 Other: Voiding Method External Catheter Diaper Incontinent # Voids 1 # Bowel Movements 1 ABP, PAP, CO, CI - Last Documented Arterial Blood Pressure 111/50 - Labs CBC & Chem 7: 11/01/23 07:56 11/01/23 07:56 Labs: Abnormal Lab Results - Last 24 Hours (Table) 10/31/23 10/31/23 11/01/23 Range/Units 16:27 20:29 06:01 WBC (3.8-10.6) k/uL RBC (3.80-5.40) m/uL Hgb (11.4-16.0) gm/dL Hct (34.0-46.0) % MCV (80.0-100.0) fL RDW (11.5-15.5) % Plt Count (150-450) k/uL Macrocytosis Sodium (137-145) mmol/L Potassium (3.5-5.1) mmol/L Chloride (98-107) mmol/L Carbon Dioxide (22-30) mmol/L Creatinine (0.52-1.04) mg/dL POC Glucose (mg/dL) 301 H 243 H 123 H (70-110) mg/dL Calcium (8.4-10.2) mg/dL Total Bilirubin (0.2-1.3) mg/dL AST (14-36) U/L ALT (4-34) U/L Alkaline Phosphatase (38-126) U/L Total Protein (6.3-8.2) g/dL Albumin (3.5-5.0) g/dL 11/01/23 11/01/23 11/01/23 Range/Units 07:56 07:56 11:25 WBC 16.3 H (3.8-10.6) k/uL RBC 2.43 L (3.80-5.40) m/uL Hgb 8.3 L (11.4-16.0) gm/dL Hct 26.4 L (34.0-46.0) % MCV 108.6 H (80.0-100.0) fL RDW 20.2 H (11.5-15.5) % Plt Count 91 L (150-450) k/uL Macrocytosis Marked A Sodium 124 L (137-145) mmol/L Potassium 3.4 L (3.5-5.1) mmol/L Chloride 97 L (98-107) mmol/L Carbon Dioxide 20 L (22-30) mmol/L Creatinine 0.40 L (0.52-1.04) mg/dL POC Glucose (mg/dL) 122 H (70-110) mg/dL Calcium 7.2 L (8.4-10.2) mg/dL Total Bilirubin 3.4 H (0.2-1.3) mg/dL AST 55 H (14-36) U/L ALT 47 H (4-34) U/L Alkaline Phosphatase 182 H (38-126) U/L Total Protein 5.6 L (6.3-8.2) g/dL Albumin 2.0 L (3.5-5.0) g/dL Assessment and Plan Assessment: Assessment and plan * Symptomatic anemia with GI bleed, status post one unit of blood transfusion * Acute hypoxic respiratory failure secondary to multifocal pneumonia and pulmonary edema. Patient is 8 L high flow oxygen--> intubated on mechanical ventilator. * Pulmonary edema likely due to cardiogenic with low ejection fraction 30 to 35%. Acute HFrEF with ejection fraction 30 -45% * moderate calorie protein malnutrition * Multifocal pneumonia, finished her course of antibioitics * Sepsis/septic shock secondary to above. off pressor support * COPD with acute exacerbation * Lactic acidosis 7.0 on admission RESOLVED * Alcoholic liver cirrhosis * Ascites Patient is status post paracentesis on 10/27/23 * Hepatic steatosis and hyperbilirubinemia and elevated liver enzymes * History of severe alcohol abuse. Quit 5 years ago * History of chronic pancreatitis * Anxiety/depression Plan: * In regards to significant anemia transfuse to maintain hemoglobin more than 7 >> patient given 1 unit of packed RBC on 10/24, surgery following, EGD deferred at this point secondary to hyponatremia * In regards to decompensated liver cirrhosis >>> continue Lasix, continue Aldactone, continue thiamine, 1 dose of tolvaptan ordered * In regards to congestive heart failure continue patient on Aldactone, continue metoprolol * In regards to COPD continue patient on breathing treatments * In regards to hyponatremia, likely secondary to cirrhosis, tolvaptan was ordered however not dispense till nephrology clearance, consulted nephrology * Goals of care discussion held with patient and family, patient open to hospice * Continue SCDs for DVT prophylaxis Time with Patient: Greater than 30
[2023-11-01] MEDS: POTASSIUM BICARBONATE/CIT AC 20 MEQ TABLET.EFF NG-TUBE SCH (13:53)
[2023-11-01] MEDS: MAGNESIUM OXIDE 400 MG TAB PO SCH (13:54)
[2023-11-01] MEDS: TOLVAPTAN 15 MG TABLET PO ONE (13:54)
--- NOTE | 2023-11-01 14:43 | P.PN ---
Subjective Progress Note Date: 11/01/23 CHIEF COMPLAINT: Pneumonia HISTORY OF PRESENT ILLNESS: Surgical service following in regards to anemia and GI bleed. Patient denies any abdominal pain. She has no evidence of any active bleeding at this time. No black stools. Hemoglobin is staying stable. EGD earlier in the week was canceled because of low sodium. Patient's sodium level does remain low. Patient was seen by GI service and they are not recommending any EGD at this time. Patient is status post paracentesis. PHYSICAL EXAM: VITAL SIGNS: Reviewed. GENERAL: no acute distress. HEENT: Scleral icterus ABDOMEN: Soft. Nontender NEUROLOGIC: Awake and alert Skin: Jaundiced ASSESSMENT: 1. Acute GI bleed with anemia and melanotic stools. No active GI bleed at this time 2. Persistent hyponatremia 3. Pneumonia 4. CHF 5. Respiratory failure requiring mechanical ventilation and extubation 6. Ascites and history of liver cirrhosis status post paracentesis x 3 7. History of heavy alcohol abuse 8. Jaundice 9. Chronic thrombocytopenia 10. Severe protein calorie malnutrition PLAN: -Continue GI management of the alcoholic liver cirrhosis -If endoscopy needed recommend it be completed by GI service. Discussed case w ith GI service. Patient has no active bleeding and hemoglobin remaining stable. There is no plans for EGD by GI service at this time -Continue to monitor hemoglobin -Continue PPI Physician Top Cager note has been reviewed by physician. Signing provider agrees with the documented findings, assessment, and plan of care. Objective - Vital Signs Vital signs: Vital Signs Temp 98.3 F 11/01/23 02:00 Pulse 84 11/01/23 12:20 Resp 16 11/01/23 12:20 BP 88/59 11/01/23 12:20 Pulse Ox 99 11/01/23 12:20 FiO2 50 10/18/23 14:10 Intake & Output 10/31/23 11/01/23 11/01/23 18:59 06:59 18:59 Intake Total 0 Balance 0 Intake: Oral 0 Other: Voiding Method External Catheter Diaper Incontinent # Voids 1 # Bowel Movements 1 ABP, PAP, CO, CI - Last Documented Arterial Blood Pressure 111/50 - Labs CBC & Chem 7: 11/01/23 07:56 11/01/23 07:56 Labs: Abnormal Lab Results - Last 24 Hours (Table) 10/31/23 10/31/23 11/01/23 Range/Units 16:27 20:29 06:01 WBC (3.8-10.6) k/uL RBC (3.80-5.40) m/uL Hgb (11.4-16.0) gm/dL Hct (34.0-46.0) % MCV (80.0-100.0) fL RDW (11.5-15.5) % Plt Count (150-450) k/uL Macrocytosis Sodium (137-145) mmol/L Potassium (3.5-5.1) mmol/L Chloride (98-107) mmol/L Carbon Dioxide (22-30) mmol/L Creatinine (0.52-1.04) mg/dL POC Glucose (mg/dL) 301 H 243 H 123 H (70-110) mg/dL Calcium (8.4-10.2) mg/dL Total Bilirubin (0.2-1.3) mg/dL AST (14-36) U/L ALT (4-34) U/L Alkaline Phosphatase (38-126) U/L Total Protein (6.3-8.2) g/dL Albumin (3.5-5.0) g/dL 11/01/23 11/01/23 11/01/23 Range/Units 07:56 07:56 11:25 WBC 16.3 H (3.8-10.6) k/uL RBC 2.43 L (3.80-5.40) m/uL Hgb 8.3 L (11.4-16.0) gm/dL Hct 26.4 L (34.0-46.0) % MCV 108.6 H (80.0-100.0) fL RDW 20.2 H (11.5-15.5) % Plt Count 91 L (150-450) k/uL Macrocytosis Marked A Sodium 124 L (137-145) mmol/L Potassium 3.4 L (3.5-5.1) mmol/L Chloride 97 L (98-107) mmol/L Carbon Dioxide 20 L (22-30) mmol/L Creatinine 0.40 L (0.52-1.04) mg/dL POC Glucose (mg/dL) 122 H (70-110) mg/dL Calcium 7.2 L (8.4-10.2) mg/dL Total Bilirubin 3.4 H (0.2-1.3) mg/dL AST 55 H (14-36) U/L ALT 47 H (4-34) U/L Alkaline Phosphatase 182 H (38-126) U/L Total Protein 5.6 L (6.3-8.2) g/dL Albumin 2.0 L (3.5-5.0) g/dL
--- NOTE | 2023-11-01 14:49 | P.PN ---
Subjective Progress Note Date: 11/01/23 Principal diagnosis: Liver cirrhosis This is a 48-year-old female who presented to the emergency department about 3 weeks ago with complaints of shortness of breath. She was subsequently admitted to the ICU and intubated. She was diagnosed and treated for pneumonia and sepsis. Due to patient's intubation she is had some difficulty swallowing following, also patient complains of scratchy sore throat and is just whispering at this time. She has a longstanding history of alcohol abuse and admits to drinking a pint a day. States that she was drinking right up until her admission. States she was diagnosed with cirrhosis of the liver a few years ago.. She was not following with anyone for her liver disease. During this hospitalization she has had 3 paracentesis last one being on 10/27/2023 with 3.6 L removed. She was started on Lasix 40 mg twice daily, Aldactone 25 mg daily. She is currently also on lactulose 20 mg twice daily. States she is having reg ular bowel movements daily. Patient had rectal tube during her ICU stay, and reportedly after it was removed had some blood noted in her stools possibly black and bloody stools. Initially general surgery was consulted. Patient's last colonoscopy was 2 years ago reported as negative. General surgery following, tentative plan was for EGD today however patient was hyponatremic and is rescheduled for Monday. She is denying any blood in her stool or black stool. Hemoglobin is stable at 8.7. Gastroenterology was consulted for cirrhosis of the liver. She denies any previous history of paracentesis prior to this admission. Today's labs WBC 18.4 hemoglobin 8.7 hematocrit 27.9 platelet count 82,000 sodium 126 potassium 3.5 BUN 12 creatinine 0.46 total bilirubin 3.8 AST 68 ALT 51 alkaline phosphatase 170 patient is currently alert and oriented. She denies any abdominal pain, nausea or vomiting. Denies any blood in her stool or black stool. 10/31/2023 Patient was seen and examined today as a follow-up she was resting with her eyes closed but easily arousable. States she is doing fine. Tolerating her breakfast. Labs currently pending. Denies any abdominal pain, nausea or vomiting. 11/01/2023 Patient lying in bed with her eyes closed. Somewhat obtunded. Patient does not participate in much conversation, still only whispering and not eating much. Hemoglobin stable at 8.3, leukocytosis slowly improving. Sodium 124 potassium 3.4 BUN 13 creatinine 0.4 total bilirubin 3.4 AST 55 ALT 47 alkaline phosphatase 182. Patient's parents are at the bedside questioning patient's prognosis and if hospice is appropriate for liver failure. Objective - Vital Signs Vital signs: Vital Signs Temp 98.3 F 11/01/23 02:00 Pulse 85 11/01/23 12:55 Resp 16 11/01/23 12:55 BP 91/53 11/01/23 12:55 Pulse Ox 97 11/01/23 12:55 FiO2 50 10/18/23 14:10 Intake & Output 10/31/23 11/01/23 11/01/23 18:59 06:59 18:59 Intake Total 0 Balance 0 Intake: Oral 0 Other: Voiding Method External Catheter Diaper Incontinent # Voids 1 # Bowel Movements 1 ABP, PAP, CO, CI - Last Documented Arterial Blood Pressure 111/50 - Exam General appearance: The patient is alert, oriented, appears in no acute distress. HET: Head is normocephalic and atraumatic. Conjunctiva pink. Sclera icteric. Neck: Supple without lymphadenopathy. Abdomen: Soft, nontender, nondistended. Extremities: Normal skin color and turgor. No pedal edema Skin: No rashes, jaundice Neurological: No focal deficits. Alert and oriented. - Labs CBC & Chem 7: 11/01/23 07:56 11/01/23 07:56 Labs: Abnormal Lab Results - Last 24 Hours (Table) 10/31/23 10/31/23 11/01/23 Range/Units 16:27 20:29 06:01 WBC (3.8-10.6) k/uL RBC (3.80-5.40) m/uL Hgb (11.4-16.0) gm/dL Hct (34.0-46.0) % MCV (80.0-100.0) fL RDW (11.5-15.5) % Plt Count (150-450) k/uL Macrocytosis Sodium (137-145) mmol/L Potassium (3.5-5.1) mmol/L Chloride (98-107) mmol/L Carbon Dioxide (22-30) mmol/L Creatinine (0.52-1.04) mg/dL POC Glucose (mg/dL) 301 H 243 H 123 H (70-110) mg/dL Calcium (8.4-10.2) mg/dL Total Bilirubin (0.2-1.3) mg/dL AST (14-36) U/L ALT (4-34) U/L Alkaline Phosphatase (38-126) U/L Total Protein (6.3-8.2) g/dL Albumin (3.5-5.0) g/dL 11/01/23 11/01/23 11/01/23 Range/Units 07:56 07:56 11:25 WBC 16.3 H (3.8-10.6) k/uL RBC 2.43 L (3.80-5.40) m/uL Hgb 8.3 L (11.4-16.0) gm/dL Hct 26.4 L (34.0-46.0) % MCV 108.6 H (80.0-100.0) fL RDW 20.2 H (11.5-15.5) % Plt Count 91 L (150-450) k/uL Macrocytosis Marked A Sodium 124 L (137-145) mmol/L Potassium 3.4 L (3.5-5.1) mmol/L Chloride 97 L (98-107) mmol/L Carbon Dioxide 20 L (22-30) mmol/L Creatinine 0.40 L (0.52-1.04) mg/dL POC Glucose (mg/dL) 122 H (70-110) mg/dL Calcium 7.2 L (8.4-10.2) mg/dL Total Bilirubin 3.4 H (0.2-1.3) mg/dL AST 55 H (14-36) U/L ALT 47 H (4-34) U/L Alkaline Phosphatase 182 H (38-126) U/L Total Protein 5.6 L (6.3-8.2) g/dL Albumin 2.0 L (3.5-5.0) g/dL Assessment and Plan (1) Alcoholic liver disease Narrative/Plan: 48-year-old female with a longstanding history of alcohol abuse that drinks at least a pint a day has been here for about 22 days initial complaint of s hortness of breath and diagnosed with pneumonia and sepsis subsequently requiring intubation. Patient's diagnosed within the last few years with cirrhosis of the liver does not follow with anyone. She was noted to have abdominal ascites on admission and is required 3 paracentesis during this stay. Also had some reported blood in her stool and is going to undergo endoscopic evaluation with general surgery. Recommend continuing Lasix, will increase Aldactone to 100 mg daily. Paracentesis as needed. Continue lactulose. Recommend alcohol abstinence and follow-up with gastroenterology. 11/01/2023 Patient's parents at bedside discussed with overall prognosis is that patient's liver can improve if she stops drinking. She has advanced liver disease from alcoholic cirrhosis of the liver but not liver failure at this point. MELD score calculated at 26, 19.6% mortality in the next 3 months. Would not recommend hospice care at this point for liver disease anyway. Current Visit: Yes Status: Acute Code(s): K70.9 - ALCOHOLIC LIVER DISEASE, UNSPECIFIED SNOMED Code(s): 36919493 (2) Ascites Narrative/Plan: Aldactone increased to 100 mg daily, continue Lasix 40 mg twice daily then discharged on 40 mg daily Current Visit: Yes Status: Acute Code(s): R18.8 - OTHER ASCITES SNOMED Code(s): 541973422 (3) Pneumonia Current Visit: Yes Status: Acute Code(s): J18.9 - PNEUMONIA, UNSPECIFIED ORGANISM SNOMED Code(s): 474577939 (4) Respiratory failure requiring intubation Current Visit: Yes Status: Acute Code(s): J96.90 - RESPIRATORY FAILURE, UNSP, UNSP W HYPOXIA OR HYPERCAPNIA SNOMED Code(s): 767247198 (5) Hyponatremia Current Visit: Yes Status: Acute Code(s): E87.1 - HYPO-OSMOLALITY AND HYPO NATREMIA SNOMED Code(s): 34708298 Plan: 1. Continue symptomatic and supportive care 2. Continue Lasix, increase Aldactone to 100 mg daily. Recommend Lasix 40 mg daily on discharge 3. Continue lactulose 4. Recommend alcohol abstinence 5. Patient will need outpatient follow-up with gastroenterology 6. Paracentesis as needed 7. Daily CBC, transfuse for hemoglobin less than 7. Daily BMP 8. No plans on endoscopic evaluation and patient at this time. No signs of GI bleed. Discussed with patient and parents this could be considered as an outpatient if needed. Thank you for this consultation, we will continue to follow. Dr. Jann Duckworth I agree with the dictator's note, documented as a scribe by Lyly Guerrero.
[2023-11-01 15:55] LABS: % Iron Saturation 11.3 (12.00-45.00)
[2023-11-01 16:27] LABS: Glucose,Whole Blood 79 mg/dL (70-110)
--- NOTE | 2023-11-01 16:28 | US ---
EXAMINATION TYPE: US paracentesis abd w/image DATE OF EXAM: 11/01/2023 3:15 PM CLINICAL INDICATION:Female, 48 years old with history of ascites; COMPARISON: 10/28/2023. ATTENDING: Dr. Jamil Daniel PROCEDURE: Informed consent was obtained. The risks of the procedure were extensively explained incl uding risk of damage to surrounding bowel with perforation and need for additional procedures. Proced ure was performed in the ultrasound procedure suite. Ultrasound imaging of the abdomen demonstrate as citic fluid. An appropriate access site was localized to the right lower abdomen. Timeout was taken p er protocol. The skin was prepped and draped in the usual sterile fashion and then locally anesthetiz ed with 1% lidocaine. The peritoneal cavity was then accessed via a 5-Armenian one-step needle/cathete r. Approximately 3200 cc of clear straw-colored fluid was obtained. Postprocedural imaging of the ab domen demonstrate a minimal amount of abdominal fluid. Patient tolerated procedure well without immediate complication. Hemostasis at the procedural site w as obtained with a sterile bandage placed. The patient was monitored in the holding area following th e procedure and was subsequently discharged in stable condition. IMPRESSION: Ultrasound guided paracentesis, with approximately 3200 cc of clear straw-colored fluid drained. No immediate complications were evident.
[2023-11-01 20:37] LABS: Glucose,Whole Blood 256 mg/dL (70-110)
[2023-11-02 05:48] LABS: Glucose,Whole Blood 155 mg/dL (70-110)
[2023-11-02 08:19] VITALS: TEMP 97.9
[2023-11-02] MEDS: PANTOPRAZOLE 40 MG/10 ML VIAL IVP SCH (09:11)
--- NOTE | 2023-11-02 10:40 | P.PN ---
Subjective Patient is seen in follow-up for hyponatremia. Maintained on Lasix and Aldactone. Also received a dose of Samsca yesterday. Sitting up in bed. Vital signs are stable. General: No acute distress. HEENT: Head exam is unremarkable. LUNGS: No audible rhonchi or wheezes. HEART: Rate and Rhythm are regular. ABDOMEN: Nontender, mild distention noted. EXTREMITITES: No edema. Objective - Vital Signs Vital signs: Vital Signs Temp 97.9 F 11/02/23 07:30 Pulse 94 11/02/23 08:25 Resp 16 11/02/23 08:25 BP 94/58 11/02/23 07:30 Pulse Ox 96 11/02/23 07:30 FiO2 50 10/18/23 14:10 Intake & Output 11/01/23 11/02/23 11/02/23 18:59 06:59 18:59 Intake Total 40 250 Output Total 100 Balance -100 40 250 Intake: IV 10 Invasive Line 6 10 Oral 40 240 Output: Stool 100 Other: Voiding Method Incontinent Diaper Diaper Incontinent Incontinent ABP, PAP, CO, CI - Last Documented Arterial Blood Pressure 111/50 - Labs CBC & Chem 7: 11/01/23 07:56 11/01/23 07:56 Labs: Abnormal Lab Results - Last 24 Hours (Table) 11/01/23 11/01/23 11/01/23 Range/Units 07:56 11:25 20:35 POC Glucose (mg/dL) 122 H 256 H (70-110) mg/dL Iron 26 L (50-170) UG/DL % Saturation 11.30 L (12.00-45.00) Transferrin 164.0 L (204.0-354.0) mg/dL 11/02/23 Range/Units 05:47 POC Glucose (mg/dL) 155 H (70-110) mg/dL Iron (50-170) UG/DL % Saturation (12.00-45.00) Transferrin (204.0-354.0) mg/dL Assessment and Plan Plan: Assessment: 1. Hyponatremia, hypervolemic. Component of poor solute intake. Sodium level 124 yesterday. 2. Alcohol induced liver cirrhosis. 3. Ascites requiring multiple paracentesis this admission with most recent one being November 01, 2023 with 3.2 L drained. 4. Acute GI bleed status post blood transfusion this admission. Iron def iciency noted. 5. Hypokalemia from diuresis and poor intake. 6. Acute hypoxic respiratory failure secondary to pneumonia. Plan: Maintain Lasix and Aldactone. On potassium supplementation. On oral magnesium oxide. Maintain 1200 cc fluid restriction. Encouraged oral intake, particularly protein. Status post Samsca given November 01, 2023. IV iron x 1 dose today. Plan is to go on hospice.
--- NOTE | 2023-11-02 11:25 | P.PN ---
Subjective Progress Note Date: 11/02/23 Principal diagnosis: Liver cirrhosis This is a 48-year-old female who presented to the emergency department about 3 weeks ago with complaints of shortness of breath. She was subsequently admitted to the ICU and intubated. She was diagnosed and treated for pneumonia and sepsis. Due to patient's intubation she is had some difficulty swallowing following, also patient complains of scratchy sore throat and is just whispering at this time. She has a longstanding history of alcohol abuse and admits to drinking a pint a day. States that she was drinking right up until her admission. States she was diagnosed with cirrhosis of the liver a few years ago.. She was not following with anyone for her liver disease. During this hospitalization she has had 3 paracentesis last one being on 10/27/2023 with 3.6 L removed. She was started on Lasix 40 mg twice daily, Aldactone 25 mg daily. She is currently also on lactulose 20 mg twice daily. States she is having reg ular bowel movements daily. Patient had rectal tube during her ICU stay, and reportedly after it was removed had some blood noted in her stools possibly black and bloody stools. Initially general surgery was consulted. Patient's last colonoscopy was 2 years ago reported as negative. General surgery following, tentative plan was for EGD today however patient was hyponatremic and is rescheduled for Monday. She is denying any blood in her stool or black stool. Hemoglobin is stable at 8.7. Gastroenterology was consulted for cirrhosis of the liver. She denies any previous history of paracentesis prior to this admission. Today's labs WBC 18.4 hemoglobin 8.7 hematocrit 27.9 platelet count 82,000 sodium 126 potassium 3.5 BUN 12 creatinine 0.46 total bilirubin 3.8 AST 68 ALT 51 alkaline phosphatase 170 patient is currently alert and oriented. She denies any abdominal pain, nausea or vomiting. Denies any blood in her stool or black stool. 10/31/2023 Patient was seen and examined today as a follow-up she was resting with her eyes closed but easily arousable. States she is doing fine. Tolerating her breakfast. Labs currently pending. Denies any abdominal pain, nausea or vomiting. 11/01/2023 Patient lying in bed with her eyes closed. Somewhat obtunded. Patient does not participate in much conversation, still only whispering and not eating much. Hemoglobin stable at 8.3, leukocytosis slowly improving. Sodium 124 potassium 3.4 BUN 13 creatinine 0.4 total bilirubin 3.4 AST 55 ALT 47 alkaline phosphatase 182. Patient's parents are at the bedside questioning patient's prognosis and if hospice is appropriate for liver failure. 11/02/2023 Patient is sitting up in bed. She is alert and oriented. She is talking and her voice has improved. She is drinking a Ensure. Her mother is at the bedside. No other complaints. Plan is for patient to be discharged to hospice house. Objective - Vital Signs Vital signs: Vital Signs Temp 97.9 F 11/02/23 07:30 Pulse 94 11/02/23 08:25 Resp 16 11/02/23 08:25 BP 94/58 11/02/23 07:30 Pulse Ox 96 11/02/23 07:30 FiO2 50 10/18/23 14:10 Intake & Output 11/01/23 11/02/23 11/02/23 18:59 06:59 18:59 Intake Total 40 250 Output Total 100 Balance -100 40 250 Intake: IV 10 Invasive Line 6 10 Oral 40 240 Output: Stool 100 Other: Voiding Method Incontinent Diaper Diaper Incontinent Incontinent ABP, PAP, CO, CI - Last Documented Arterial Blood Pressure 111/50 - Exam General appearance: The patient is alert, oriented, appears in no acute distress . HET: Head is normocephalic and atraumatic. Conjunctiva pink. Sclera icteric. Neck: Supple without lymphadenopathy. Abdomen: Soft, nontender, nondistended. Extremities: Normal skin color and turgor. No pedal edema Skin: No rashes, jaundice Neurological: No focal deficits. Alert and oriented. - Labs CBC & Chem 7: 11/01/23 07:56 11/01/23 07:56 Labs: Abnormal Lab Results - Last 24 Hours (Table) 11/01/23 11/01/23 11/01/23 Range/Units 07:56 11:25 20:35 POC Glucose (mg/dL) 122 H 256 H (70-110) mg/dL Iron 26 L (50-170) UG/DL % Saturation 11.30 L (12.00-45.00) Transferrin 164.0 L (204.0-354.0) mg/dL 11/02/23 Range/Units 05:47 POC Glucose (mg/dL) 155 H (70-110) mg/dL Iron (50-170) UG/DL % Saturation (12.00-45.00) Transferrin (204.0-354.0) mg/dL Assessment and Plan (1) Alcoholic liver disease Narrative/Plan: 48-year-old female with a longstanding history of alcohol abuse that drinks at least a pint a day has been here for about 22 days initial complaint of shortness of breath and diagnosed with pneumonia and sepsis subsequently requiring intubation. Patient's diagnosed within the last few years with cirrhosis of the liver does not follow with anyone. She was noted to have abdominal ascites on admission and is required 3 paracentesis during this stay. Also had some reported blood in her stool and is going to undergo endoscopic evaluation with general surgery. Recommend continuing Lasix, will increase Aldactone to 100 mg daily. Paracentesis as needed. Continue lactulose. John mmend alcohol abstinence and follow-up with gastroenterology. 11/01/2023 Patient's parents at bedside discussed with overall prognosis is that patient's liver can improve if she stops drinking. She has advanced liver disease from alcoholic cirrhosis of the liver but not liver failure at this point. MELD score calculated at 26, 19.6% mortality in the next 3 months. Would not recommend hospice care at this point for liver disease anyway. Current Visit: Yes Status: Acute Code(s): K70.9 - ALCOHOLIC LIVER DISEASE, UNSPECIFIED SNOMED Code(s): 69498111 (2) Ascites Narrative/Plan: Aldactone increased to 100 mg daily, continue Lasix 40 mg twice daily then discharged on 40 mg daily Current Visit: Yes Status: Acute Code(s): R18.8 - OTHER ASCITES SNOMED C ode(s): 140122017 (3) Pneumonia Current Visit: Yes Status: Acute Code(s): J18.9 - PNEUMONIA, UNSPECIFIED ORGANISM SNOMED Code(s): 849780047 (4) Respiratory failure requiring intubation Current Visit: Yes Status: Acute Code(s): J96.90 - RESPIRATORY FAILURE, UNSP, UNSP W HYPOXIA OR HYPERCAPNIA SNOMED Code(s): 897342284 (5) Hyponatremia Current Visit: Yes Status: Acute Code(s): E87.1 - HYPO-OSMOLALITY AND HYPONATREMIA SNOMED Code(s): 13994985 Plan: 1. Continue symptomatic and supportive care 2. Continue Aldactone to 100 mg daily. Recommend Lasix 40 mg daily on discharge 3. Continue lactulose 4. Recommend alcohol abstinence 5. Patient and family's plan is for patient to be discharged to hospice house 6. No plans on endoscopic evaluation and patient at this time. No signs of GI bleed. Discussed with patient and parents this could be considered as an outpatient if needed. 7. Patient to follow-up with gastroenterology as needed Thank you for this consultation, we will sign off at this time. Dr. Jann Duckworth I agree with the dictator's note, documented as a scribe by Lyly Guerrero.
[2023-11-02 11:33] LABS: Glucose,Whole Blood 367 mg/dL (70-110)
--- NOTE | 2023-11-02 12:03 | P.PN ---
Subjective Progress Note Date: 11/02/23 The patient is seen today October 30, 2023 and follow-up on the regular medical floor. She is awake and alert in no acute distress. Sitting up in a chair at the bedside. She is maintaining good O2 saturations in the 90s on room air. No worsening shortness of breath, cough or congestion. White count 18.8 AST 68. ALT 51. She is status post 1 unit of packed red blood cells this admission. No current active GI bleed. She remains on diuretics. She remains quite weak and debilitated. Plan is for subacute rehab postdischarge. Patient was reevaluated today on 10/31/23, patient remains frail, chronically ill, extremely weak, mother is at bedside, patient continues to have recurrent ascites, and requiring repeat paracentesis procedures. Patient is on room air, O2 sats is 93%, apparently the patient and her mother are quite aware of the poor prognostic picture, mother is requesting at least evaluation by hospice, and I believe that would be appropriate. 2 years ago, patient had evaluation by liver specialist at [facility], and she was supposed to have further follow-up for possible down the line liver transplant at [facility]. However the patient did not follow at that time. CBC today showed WBC count of 16.0 hemoglobin 8.9 sodium is low at 125 The patient is seen today November 01, 2023 in follow-up on the selective care unit. She is currently sitting up in bed. Awake and alert in no acute distress. Maintaining O2 saturations in the 90s on room air. She remains quite weak and debilitated. Her voice is soft. She did undergo a repeat paracentesis today. White count 16.3. Hemoglobin 8.3. Platelets 91,000. Sodium 124. Potassium 3.4. Bicarb 20. BUN 13. Creatinine 0.40. AST 55. ALT 47. Alk phos 182. She remains on diuretics. The patient is seen today November 02, 2023 in follow-up on the selective care unit. She remains awake and alert in no acute distress. She denies any worsening shortness of breath, cough or congestion. She is feeling a bit stronger today compared to yesterday. She did undergo a paracentesis with 3.2 L of fluid removed yesterday. Blood sugar 155. Ammonia level 28. She is continued on bronchodilators, diuretics, Lemert insulin and NovoLog sliding scale. Objective - Vital Signs Vital signs: Vital Signs Temp 97.9 F 11/02/23 07:30 Pulse 94 11/02/23 08:25 Resp 16 11/02/23 08:25 BP 94/58 11/02/23 07:30 Pulse Ox 96 11/02/23 07:30 FiO2 50 10/18/23 14:10 Intake & Output 11/01/23 11/02/23 11/02/23 18:59 06:59 18:59 Intake Total 40 250 Output Total 100 Balance -100 40 250 Intake: IV 10 Invasive Line 6 10 Oral 40 240 Output: Stool 100 Other: Voiding Method Incontinent Diaper Diaper Incontinent Incontinent ABP, PAP, CO, CI - Last Documented Arterial Blood Pressure 111/50 - Exam GENERAL EXAM: Alert, thin, frail 48-year-old female, debilitated, on room air, in no apparent distress. HEAD: Normocephalic. EYES: Normal reaction of pupils, equal size. NOSE: Clear with pink turbinates. THROAT: No erythema or exudates. NECK: No masses, no JVD. CHEST: No chest wall deformity. LUNGS: Equal air entry with no crackles, wheeze, rhonchi or dullness. CVS: S1 and S2 normal with no audible murmur, regular rhythm. ABDOMEN: Distended, normal bowel sounds, no guarding or rigidity. SPINE: No scoliosis or deformity SKIN: No rashes CENTRAL NERVOUS SYSTEM: No focal deficits, remains quite weak and debilitated, tone is normal in all 4 extremities. EXTREMITIES: There is 1+ peripheral edema. No clubbing, no cyanosis. Peripheral pulses are intact. - Labs CBC & Chem 7: 11/01/23 07:56 11/01/23 07:56 Labs: Abnormal Lab Results - Last 24 Hours (Table) 11/01/23 11/01/23 11/02/23 Range/Units 07:56 20:35 05:47 POC Glucose (mg/dL) 256 H 155 H (70-110) mg/dL Iron 26 L (50-170) UG/DL % Saturation 11.30 L (12.00-45.00) Transferrin 164.0 L (204.0-354.0) mg/dL 11/02/23 Range/Units 11:31 POC Glucose (mg/dL) 367 H (70-110) mg/dL Iron (50-170) UG/DL % Saturation (12.00-45.00) Transferrin (204.0-354.0) mg/dL Assessment and Plan Assessment: Acute hypoxic respiratory failure secondary to acute bilateral multilobar pneumonia as well as some fluid overload/CHF, status post intubation and mechanical ventilation on October 10, 2023. S/P successful extubation on October 18, 2023. Recovered and on room air Acute pulmonary edema, cardiogenic in origin, with an ejection fraction of 20% Acute exacerbation of chronic obstructive pulmonary disease secondary to above Ascites, status post paracentesis abdominis on 10/17/2023, 10/23/2023 and 11/01/2023 Chronic and ongoing tobacco dependence History of heavy alcohol abuse. Now admits to drinking up to time of admission History of cirrhosis secondary to above History of previous workup for possible liver transplant in 2 years ago at [facility] however the patient had not quit drinking History of chronic pancreatitis secondary to above History of anxiety/depression Jaundice to the bilirubin level remains elevated with elevated LFTs Profound motor weakness, generalized secondary to above-mentioned comorbidities Chronic hyponatremia related to liver cirrhosis Diabetes mellitus secondary to above maintained on Levemir insulin 10 units daily along with sliding scale coverage Acute on top of chronic anemia hemoglobin is stable for now without evidence of any GI bleed Chronic thrombocytopenia related to liver disease, platelet count are stable Leukocytosis, improving Plan: The patient was seen and evaluated Labs and medications reviewed Continued on bronchodilators Continued on diuretics Currently stable and on room air The plan now is to be discharged to the hospice house This patient was seen independently by the pulmonary nurse practitioner addressing pulmonary issues I have personally seen and examined the patient, performed the documentation and the assessment and plan as written. Number of minutes spent on the visit: 23.
[2023-11-02] MEDS: SODIUM FERRIC GLUCONAT-SUCROSE 125 MG in SODIUM CHLORIDE 0.9% 100 ML IVPB ONE (12:05)
--- NOTE | 2023-11-02 12:07 | P.DS ---
Providers Date of admission: 10/08/23 23:59 Expected date of discharge: 11/02/23 Attending physician: Jack Sánchez Consults: 10/09/23 10:25 Consult Physician Routine Consulting Provider: Radha Guerrier Consult Reason/Comments: Multifocal Pneumonia Do you want consulting provider notified?: Yes 10/25/23 09:09 Consult Physician Urgent Consulting Provider: Bipin Marshall Consult Reason/Comments: inpatient rehab needs, prolonged hospitalization, sepsis Do you want consulting provider notified?: Yes 10/25/23 18:40 Consult Physician Urgent Consulting Provider: Kymberly Rojas Consult Reason/Comments: anemia, r/u gi bleed Do you want consulting provider notified?: Yes 10/27/23 07:56 Consult Physician Routine Consulting Provider: Mary Duckworth Consult Reason/Comments: liver cirrhosis Do you want consulting provider notified?: Yes 10/31/23 12:31 Consult Physician Routine Consulting Provider: Carlos Jackson Consult Reason/Comments: Hyponatremia, evaluate for tolvaptan, liver cirrhosis Do you want consulting provider notified?: Yes Primary care physician: Kashif Montoya [facility] Course: 48-year-old female with a past medical history of severe alcohol abuse, quit 5 years ago, alcoholic liver cirrhosis and is on follow-up with her train examiner at [facility], IBS, anxiety/depression and presents to ER with complaints of worsening shortness of breath. Patient states that she has been having shortness of breath for the past week and a half and did get worse in the last few days. Patient tried using her breathing treatments at home but did not get improvement. Patient was recently given antibiotics and prednisone by her physician. She has been increasingly weak and not feeling well. Patient presented to ER for evaluation. He was also complaining of cough without any sputum production. Also complaining of chest tightness and anxiety. Denies any leg swelling. No nausea or vomiting. Patient is also having increased abdominal girth. No prior history of paracentesis as per patient. Denies any fever at home. On admission patient was tachycardic and tachypneic and pulse ox 80% on room air. Currently requiring 8 L of oxygen via nasal cannula. CT of the abdomen pelvis showed patchy bilateral airspace consolidation consistent with multilobar pneumonia. Hepatic steatosis, abdominal ascites. Wall thickening of small bowel correlate for mild enteritis versus spontaneous bacterial peritonitis. CTA chest showed no PE. Patchy bilateral airspace consolidation consistent with multilobar pneumonia. Chest x-ray showed similar multifocal airspace opacities. Laboratory data showed WBC 16.5 hemoglobin 10.0 MCV 102.4 and platelets 188 and neutrophils 14.4 INR 1.7, D-dimer 2.8 Sodium 132 potassium 3.7 chloride 95 bicarbonate 24 BUN 18 and creatinine 0.84 and blood sugar 270 and lactic acid 7.0 on admission, calcium 8.1, total bilirubin level is 4.6 AST 113 ALT 68 and alk phos 208 Troponin 0.012 and proBNP 2040 and albumin 3.0 Influenza A, B, RSV and COVID-19 PCR not detected. 10/10/2023 Patient was transferred to MICU. Overnight patient's respiratory status worsened due to multifocal pneumonia and also patient is receiving fluids at 100 cc/h due to sepsis. Patient was intubated and is on assist-control. Patient is currently requiring pressor support. Chest x-ray this morning showed severe bilateral pulmonary infiltration which has worsened. Was given IV Lasix. 2D echocardiogram showed dilated LV and severe LV systolic dysfunction. Ejection fraction 30 to 35%. Laboratory showed WBC worsened to 26.6 hemoglobin 10.3 and platelets 190 Sodium 139 potassium 3.6 chloride 108 bicarb is 20 BUN 15 and creatinine 0.64 blood sugar 206 and A1c 6.8 lactic acid 5.4 this morning. Liver enzymes are elevated. Cardiology and pulmonary is on board. Patient is being continued on antibiotics changed to Zosyn. Procalcitonin level is elevated at 0.61. 10/11/2023 Patient is in the MICU. Intubated and sedated. On mechanical ventilator. Patient is also requiring pressor support with Levophed and also on dobutamine drip. Urine output remains low. Patient has been afebrile. Nutrition via NG tube. Patient was also started on IV hydration with normal saline at 75 cc/h. Chest x-ray showed multifocal airspace opacities are not significantly changed. Support tubes and proper positioning. Patient remains on antibiotics in the form of Zosyn. 2D echocardiogram showed left ventricular ejection fraction 30 to 35%. Mild right ventricular dilatation. Trace pericardial effusion and pleural effusion was identified. Laboratory data showed WBC 24.9 hemoglobin 9.6 and platelets 187 Sodium 137 potassium 4.2 chloride 102 bicarb is 26 BUN 25 and creatinine 1.1 and blood sugar 264. Patient is scheduled for paracentesis tomorrow. Blood cultures negative so far. Cardiology and pulmonary is on board. 10/12/2023 Patient is in the MICU. Remains intubated and sedated. On assist-control with respiratory of 20 tidal volume 350 and FiO2 40% and PEEP of 10. Continue to be on vasopressin and norepinephrine. Patient was also started on IV hydration with normal saline at 75 cc/h. Urine output is marginal. Patient remains on antibiotics Zosyn. Repeat chest x-ray this morning showed similar multifocal airspace opacities. Patient was given a dose of IV Lasix. Stable support tubes. Laboratory data showed WBC 24.6 hemoglobin 9.1 and platelets 144 BUN 40 and creatinine 1.09 and blood sugar is elevated at 312. Levemir dose increased to 12 units twice daily and continue with insulin sliding scale. Cardiology and critical care team is on board.Patient is scheduled to go for paracentesis today. 10/13/2023 Patient remains in the MICU. On assist-control with FiO2 35% and PEEP of 10. Tidal volume 350. Currently sedation is off. Chest x-ray showed stable exam mild pulmonary edema. Patient underwent ultrasound-guided paracentesis with 1800 cc clear straw- colored fluid drained. Pathology and culture is pending. Laboratory data showed WBC 25.4 hemoglobin 8.7 and platelets 127 BUN 49 creatinine 1.03 potassium 4.2 and blood sugar 159. Patient is being current on IV Solu-Medrol 60 mg every 6 hourly and is also on antibiotics, Zosyn. 10/14/2023 Patient is a pleasant 48 years old female who presents with bilateral pneumonia with acute hypoxic respiratory failure requiring intubation and mechanical ventilation. CTA of the chest was negative for PE which is done secondary to high d-dimer, CT of the abdomen showing thickened small bowel loops suspicious for enteritis, patient currently covered with Zosyn ProBNP is elevated 2039, chest x-ray showing mild was for congestion and ejection fraction is 30-35% patient is receiving IV Lasix and She Is Intubated. She Is Also on Salmeterol 60 Mg for Possible Acute COPD Exacerbation. Patient on Insulin Levemir 12 Units Twice Daily She Has Decompensated Liver Cirrhosis Status Post Paracentesis on 10/12 Where 1800 ML of Fluid Aspirated Patient today undergoing sedation holiday with propofol was off since yesterday Patient got agitated and she was placed on Precedex as well as IV morphine with little help so far Discussed with the bedside nurse Patient could not tolerate CPAP earlier, currently continued on mechanical ventilation with P5 and FiO2 of 40% Family at bedside 10/15/2023 Patient remains in the ICU intubated and sedated Over the last 2 days she was undergoing sedation holiday and propofol was stopped Today she was more agitated and she was placed back on a propofol Pulmonary level yesterday was 20 but given her worsening mentation we ordered a repeat ammonia level and KUB for abdomen slightly distended She had paracentesis related to her decompensated liver cirrhosis about 3 days ago with 1800 mL of fluid taken out We going to order a KUB but possible patient will require more paracentesis She received 1 dose of IV Lasix Normal saline 75 mL output 250 mL/h She remains on Zosyn and Solu-Medrol 60 mg Discussed with the bedside nurse 10/16/2023 Patient remains in the ICU intubated and sedated Yesterday after on repeat chest x-ray showing pulmonary congestion IV fluids of normal saline 50 mL was stopped and patient was started on IV Lasix 40 mg every 8 hours Repeat chest x-ray this morning testosterone pulmonary congestion, KUB showing nonobstructive pattern most likely patient has ascites related to her liver cirrhosis. Also patient placed on low-dose Lopressor suffers a percent respiratory blood pressure Metoprolol 25 mg 3 times a day per Immigration Case Worker This she swelling is on board and patient glucose is controlled. 10/17/2023 Patient is from his ICU sedated and intubated. Today propofol was stopped and patient could follow command Weaning trial is attempting and patient was replaced back on before meals mode because of her tachypnea Also patient is planned to undergo paracentesis so between today and tomorrow for her ascites related to her liver cirrhosis. Extremities without obvious on Medrol 40 mg, Zosyn, IV Lasix 40 mg every 8 hours. 10/18/2023 Patient remains intubated and sedated in the ICU with pulmonary/critical care team followed closely. Patient under going sedation holiday for possible extubation She still has leukocytosis of 24,000, hemoglobin 8.6. IV fluids discontinued Currently on Solu-Medrol 40 mg, Zosyn and Lasix 40 mg 3 times a day. 10/19/2023 Patient is status post extubation today. She is awake alert and family at bedside trying to feed her. She developed a large direct well. She is calm pleasant looks little bit tired. Denies any specific symptoms with no chest pain or dyspnea. Abdomen is mildly distended but soft no tenderness. She remains on IV Solu-Medrol 40 mg twice daily, IV Lasix 40 twice daily. She is not an antibiotic I am resuming the care of the patient Patient awake alert looks relaxed and comfortable in bed She is eating her meal with no difficulty Her abdomen mildly distended She status post paracentesis with 4.2 L of fluid taken out She is mildly tachycardic with a heart attack and 106 Blood pressure 95/59 Sodium on the low side to 127 WBCs 20 9K, patient he has history of chronic leukocytosis since 2019 Hemoglobin stable 7.6. Platelet count 104 INR 1.6. Patient remains on IV salmeterol 40 mg and IV Lasix 40 mg 10/24/2023 Patient awake alert, sitting up in chair, looks pleasant Patient denies any specific symptoms, no dyspnea or chest pain or coughing. Abdominal distention is mild, improvement after paracentesis, no urinary symptoms and her bowel movement is formed. No confusion, no abdominal pain or tenderness. Her fluid overload is improving Actually she has mild hypovolemic hyponatremia today with sodium 125. Hemoglobin dropped to 6.7 and she is going to be given 1 unit of blood transfusion WBC is elevated at 28,000 which is chronic Chest x-ray showing improvement aeration. please refer to the for report She still on office on Medrol 4 mg twice daily and IV Lasix 40 mg twice daily 10/25/2023 Patient awake and alert Denies specific symptoms, to the risks some diet Abdomen mildly distended Patient had severe anemia yesterday at 6.7 received 1 unit of blood transfusion went up to 9.4 this morning her stool was dark suspicious for GI bleed so we repeated hemoglobin was 8.9. Patient blood pressure is stable but mildly tachycardic. Patient IV Lasix was held. I saw Medrol was held as well as IV Lovenox. Patient continued on IV Protonix, iron pills added We'll check for occult blood in the stool Transfer the patient to [facility], stress UNIT for more close monitoring Consult general surgery team 10/26/2023 Patient awake alert, mentation at baseline, she is somewhat whispering. Denies dyspnea. No abdominal pain or tenderness, abdomen mildly distended but soft No evidence of cellulitis, she has some oozing spots from her right thigh. She had 2 bowel movements which are black in color. Sodium 126 from 125 yesterday most likely hypervolemic hyponatremia Yesterday Lasix 40 mg IV twice a day was stopped, and we going to resume Lasix 40 mg by mouth daily. Also we will add Aldactone small dose Hemoglobin stable 8.9, surgery team are planning for further evaluation, and possible scope She was on IV Protonix Pressure is up again the umbilicus her NovoLog 3 units up to 5 units with meals 10/27/2023 Patient awake and alert at baseline, she is calm and relaxed not in distress She's getting lactulose and states she had one to 2 bowel movements yesterday, no blood Vitals stable. Hemoglobin from yesterday was stable, today labs are pending Patient is abdomen is mildly distended and after blood transfusion. She was placed on oral Lasix 40 mg daily and Aldactone 12.5 mg General surgeon on the case and plan for procedure today to check for acute blood loss anemia. She's not on anticoagulation and she is on IV Protonix Dietitian consult for her malnutrition there is no GI service in this facility during this week Patient awake alert, mildly lethargic but she looks comfortable. She is not eating much mainly drinking pop. Patient was encouraged to eat and she was placed on liquid diet with ensure. She status post paracentesis and around 3 L of fluid taken out yesterday Sodium is 129 after she was placed on IV Lasix and Aldactone Hemoglobin stable at 8.3 and she remains on IV Protonix 10/29/2023 Patient is very weak and lethargic but still awake. Her sugar was on the low side after we lowered her Levemir 10 units twice a day down to 14 units at bedtime, we going to lower dose down to 10 units at bedtime, especially patient also going for endoscopy tomorrow with surgery team for her anemia Patient has not eaten much and she was encouraged extensively. Last night she had some lower abdominal tenderness but still concerned. Repeat CT of the abdomen showing similar changes Hemoglobin 8.1, WBC 23,000 which is chronic, sodium 129 Increase lactulose 10 mg twice a day to 20 mg as she is having one bowel movement a become more lethargic Change of the Lasix to oral dose 10/30/2023 Dr Ramirez Patient seen and evaluated bedside, patient is awake and alert, patient does complain of weakness, WBC count 18.4 hemoglobin 8.7 platelet count 82,000. Serum sodium is 126 potassium 3.5 BUN and creatinine within normal limits blood glucose 125, 137. Noted to have sinus tachycardia. Patient did have paracentesis completed on 10/27 and 3.6 L of fluid was removed 10/31/2023: Patient seen and evaluated bedside, during my evaluation patient is alert to person place and situation. Goals of care discussion held with patient along with mother at bedside. We discussed options regarding hospice. At this point patient would want to get better and go to rehab. Patient was offered if EGD would need to be done or if she will be in agreement patient agreed. At this point patient does not want to pursue comfort measures. Mother at bedside and was part of the conversation. Hospice was consulted earlier after pulmonary medicine rounds. We will continue to get basic information from hospice, so that patient is aware of her options. Overall prognosis to remain guarded secondary to multiple comorbidities. Noted to have hemoglobin of 8.9 platelet count of 96,000, sodium of 125 creatinine of 0.38 liver profile reviewed. Patient to be given 1 dose of tolvaptan 11/01/2023: Patient seen and evaluated bedside, patient is s/p paracentesis, patient is alert to person, does appear confused, goals of care discussed patient is open to transitioning to hospice. Waiting for gastroenterology evaluation as well patient accompanied by mother and father at bedside. Continue current management appreciate input from nephrology 11/02/2023: Patient seen and evaluated bedside, mother at bedside, patient to be discharged to hospice medical facility., Clinically patient appears ill, she understands that she has progressively declined. Patient to be discharged to hospice. GENERAL: The patient is alert and oriented x 1 , ill appearance, pale appearance HEENT: Pupils are round and equally reacting to light. EOMI. CARDIOVASCULAR: S1 and S2 present. Tachycardia noted PULMONARY: Chest is clear to auscultation, no wheezing , no crackles. ABDOMEN: Soft, nontender, distended, MUSCULOSKELETAL: No joint swelling or deformity. EXTREMITIES: Bilateral lower extremity edema NEUROLOGICAL: Gross weakness noted SKIN: Pale appearance Assessment and plan * Symptomatic anemia with GI bleed, status post one unit of blood transfusion * Acute hypoxic respiratory failure secondary to multifocal pneumonia and pulmonary edema. Patient is 8 L high flow oxygen--> intubated on mechanical ventilator. * Pulmonary edema likely due to cardiogenic with low ejection fraction 30 to 35%. Acute HFrEF with ejection fraction 30 -45% * moderate calorie protein malnutrition * Multifocal pneumonia, finished her course of antibioitics * Sepsis/septic shock secondary to above. off pressor support * COPD with acute exacerbation * Lactic acidosis 7.0 on admission RESOLVED * Alcoholic liver cirrhosis * Ascites Patient is status post paracentesis on 10/27/23 * Hepatic steatosis and hyperbilirubinemia and elevated liver enzymes * History of severe alcohol abuse. Quit 5 years ago * History of chronic pancreatitis * Anxiety/depression Plan: * In regards to significant anemia transfuse to maintain hemoglobin more than 7 >> patient given 1 unit of packed RBC on 10/24, surgery following, EGD deferred at this point secondary to hyponatremia. Patient discharged to hospice * In regards to decompensated liver cirrhosis >>> continue Lasix, continue Aldactone, continue thiamine, 1 dose of tolvaptan given 11/01, * In regards to congestive heart failure continue patient on Aldactone, continue metoprolol * In regards to COPD , patient transition to albuterol * In regards to hyponatremia, likely secondary to cirrhosis, tolvaptan was given 11/01, transition to hospice * Goals of care discussion held with patient and family, she had to be discharged to hospice * Plan to discharge to hospice Patient Condition at Discharge: Serious Plan - Discharge Summary Discharge Rx Participant: No New Discharge Prescriptions: New Spironolactone [Aldactone] 50 mg PO BID 30 Days #60 tab Folic Acid 1 mg PO DAILY 30 Days #30 tab Potassium Chloride ER [K-Dur 20] 20 meq PO DAILY 30 Days #30 tab Metoprolol Succinate (ER) [Toprol XL] 12.5 mg PO DAILY 30 Days #15 tab Lactulose [Cephulac] 20 gm PO BID 10 Days #600 ml Ferrous Sulfate [Iron (65 MG Elemental)] 325 mg PO BID-W/MEALS 30 Days #60 tab Furosemide [Lasix] 40 mg PO BID@0900,1600 30 Days #60 tab Continue PARoxetine HCL [Paxil] 40 mg PO HS ALPRAZolam [Xanax] 1 mg PO HS diphenhydrAMINE HCL [Benadryl] 25 mg PO HS Pantoprazole Sodium [Protonix] 80 mg PO DAILY Discontinued Purezzz 1 tab PO HS predniSONE [Deltasone] 40 mg PO DAILY guaiFENesin [Mucinex] 600 mg PO Q12H Spironolactone [Aldactone] 50 mg PO DAILY Furosemide [Lasix] 20 mg PO HS Azithromycin [Zithromax] 500 mg PO DAILY Discharge Medication List PARoxetine HCL [Paxil] 40 mg PO HS 05/13/18 [History] ALPRAZolam [Xanax] 1 mg PO HS 08/29/20 [History] Pantoprazole Sodium [Protonix] 80 mg PO DAILY 10/08/23 [History] diphenhydrAMINE HCL [Benadryl] 25 mg PO HS 10/08/23 [History] Ferrous Sulfate [Iron (65 MG Elemental)] 325 mg PO BID-W/MEALS 30 Days #60 tab 11/02/23 [Rx] Folic Acid 1 mg PO DAILY 30 Days #30 tab 11/02/23 [Rx] Furosemide [Lasix] 40 mg PO BID@0900,1600 30 Days #60 tab 11/02/23 [Rx] Lactulose [Cephulac] 20 gm PO BID 10 Days #600 ml 11/02/23 [Rx] Metoprolol Succinate (ER) [Toprol XL] 12.5 mg PO DAILY 30 Days #15 tab 11/02/23 [Rx] Potassium Chloride ER [K-Dur 20] 20 meq PO DAILY 30 Days #30 tab 11/02/23 [Rx] Spironolactone [Aldactone] 50 mg PO BID 30 Days #60 tab 11/02/23 [Rx] Follow up Appointment(s)/Referral(s): Theresa Lai, BONNIE [REFERRING] - As Needed (Gastroenterology follow-up for advanced liver disease) [facility]
[2023-11-02 12:27] VITALS: BP 92/62; PULSE 80; RESP 18
--- NOTE | 2023-11-02 14:07 | P.PN ---
Subjective Progress Note Date: 11/02/23 CHIEF COMPLAINT: Pneumonia HISTORY OF PRESENT ILLNESS: Surgical service following in regards to anemia and GI bleed. Patient denies any abdominal pain. She has no evidence of any active bleeding at this time. No black stools. Hemoglobin is staying stable 8.3. Patient to be discharged home with hospice today. PHYSICAL EXAM: VITAL SIGNS: Reviewed. GENERAL: no acute distress. HEENT: Scleral icterus ABDOMEN: Soft. Nontender NEUROLOGIC: Awake and alert Skin: Jaundiced ASSESSMENT: 1. Acute GI bleed with anemia and melanotic stools. No active GI bleed at this time 2. Persistent hyponatremia 3. Pneumonia 4. CHF 5. Respiratory failure requiring mechanical ventilation and extubation 6. Ascites and history of liver cirrhosis status post paracentesis x 3 7. History of heavy alcohol abuse 8. Jaundice 9. Chronic thrombocytopenia 10. Severe protein calorie malnutrition PLAN: -Patient being discharged home with hospice today -Patient has no active bleeding and hemoglobin remaining stable. -No plans for upper endoscopy. Case discussed with GI service. Physician House Supervisor note has been reviewed by physician. Signing provider agrees with the documented findings, assessment, and plan of care. Objective - Vital Signs Vital signs: Vital Signs Temp 97.9 F 11/02/23 12:00 Pulse 80 11/02/23 12:00 Resp 18 11/02/23 12:00 BP 92/62 11/02/23 12:00 Pulse Ox 94 L 11/02/23 12:00 FiO2 50 10/18/23 14:10 Intake & Output 11/01/23 11/02/23 11/02/23 18:59 06:59 18:59 Intake Total 40 250 Output Total 100 Balance -100 40 250 Intake: IV 10 Invasive Line 6 10 Oral 40 240 Output: Stool 100 Other: Voiding Method Incontinent Diaper Diaper Incontinent Incontinent ABP, PAP, CO, CI - Last Documented Arterial Blood Pressure 111/50 - Labs CBC & Chem 7: 11/01/23 07:56 11/01/23 07:56 Labs: Abnormal Lab Results - Last 24 Hours (Table) 11/01/23 11/01/23 11/02/23 Range/Units 07:56 20:35 05:47 POC Glucose (mg/dL) 256 H 155 H (70-110) mg/dL Iron 26 L (50-170) UG/DL % Saturation 11.30 L (12.00-45.00) Transferrin 164.0 L (204.0-354.0) mg/dL 11/02/23 Range/Units 11:31 POC Glucose (mg/dL) 367 H (70-110) mg/dL Iron (50-170) UG/DL % Saturation (12.00-45.00) Transferrin (204.0-354.0) mg/dL
== END 2023-11-02 15:41 | disposition hospice, inpatient (51) | DRG 870 ==
LOC: EC 20:19 → 4SSUR 23:59 → 2SICU 10-09 15:55 → 5NMEDONC 10-20 17:30 → 3SCARD 10-25 17:39
PROVIDERS: ADMIT Hospitalist; ATTEND Hospitalist
PROC: 4A133J1 Monitoring of Arterial Pulse, Peripheral, Percutaneous Approach (ICD-10-PCS; principal; 2023-10-10)
PROC: 0D9670Z Drainage of Stomach with Drainage Device, Via Natural or Artificial Opening (ICD-10-PCS; principal; 2023-10-10)
PROC: 4A133B1 Monitoring of Arterial Pressure, Peripheral, Percutaneous Approach (ICD-10-PCS; principal; 2023-10-10)
PROC: 06HY33Z Insertion of Infusion Device into Lower Vein, Percutaneous Approach (ICD-10-PCS; principal; 2023-10-10)
PROC: 3E0G76Z Introduction of Nutritional Substance into Upper GI, Via Natural or Artificial Opening (ICD-10-PCS; principal; 2023-10-10)
PROC: 3E043XZ Introduction of Vasopressor into Central Vein, Percutaneous Approach (ICD-10-PCS; principal; 2023-10-10)
PROC: 03HY32Z Insertion of Monitoring Device into Upper Artery, Percutaneous Approach (ICD-10-PCS; principal; 2023-10-10)
PROC: 0BH17EZ Insertion of Endotracheal Airway into Trachea, Via Natural or Artificial Opening (ICD-10-PCS; principal; 2023-10-10)
PROC: 5A1955Z Respiratory Ventilation, Greater than 96 Consecutive Hours (ICD-10-PCS; principal; 2023-10-10)
PROC: 0W9G3ZZ Drainage of Peritoneal Cavity, Percutaneous Approach (ICD-10-PCS; 2023-10-12)
PROC: 0W9G3ZZ Drainage of Peritoneal Cavity, Percutaneous Approach (ICD-10-PCS; 2023-10-17)
PROC: 0W9G3ZZ Drainage of Peritoneal Cavity, Percutaneous Approach (ICD-10-PCS; 2023-10-23)
PROC: 30233N1 Transfusion of Nonautologous Red Blood Cells into Peripheral Vein, Percutaneous Approach (ICD-10-PCS; 2023-10-24)
PROC: 0W9G3ZZ Drainage of Peritoneal Cavity, Percutaneous Approach (ICD-10-PCS; 2023-10-27)
PROC: 0W9G3ZZ Drainage of Peritoneal Cavity, Percutaneous Approach (ICD-10-PCS; 2023-11-01)
DX: A41.9 Sepsis, unspecified organism (principal); E43 Unspecified severe protein-calorie malnutrition; R65.21 Severe sepsis with septic shock; J96.01 Acute respiratory failure with hypoxia; J18.9 Pneumonia, unspecified organism; I50.21 Acute systolic (congestive) heart failure; E87.20 Acidosis, unspecified; Z68.1 Body mass index [BMI] 19.9 or less, adult; N17.9 Acute kidney failure, unspecified; K86.1 Other chronic pancreatitis; J44.1 Chronic obstructive pulmonary disease with (acute) exacerbation; J44.0 Chronic obstructive pulmonary disease with (acute) lower respiratory infection; I42.9 Cardiomyopathy, unspecified; G72.81 Critical illness myopathy; E87.1 Hypo-osmolality and hyponatremia; D62 Acute posthemorrhagic anemia; K92.2 Gastrointestinal hemorrhage, unspecified; I16.0 Hypertensive urgency; K70.31 Alcoholic cirrhosis of liver with ascites; F10.21 Alcohol dependence, in remission; E11.9 Type 2 diabetes mellitus without complications; K76.82 Hepatic encephalopathy; Z11.52 Encounter for screening for COVID-19; K58.9 Irritable bowel syndrome, unspecified; F41.9 Anxiety disorder, unspecified; F32.A Depression, unspecified; Z51.5 Encounter for palliative care; R53.81 Other malaise; R13.10 Dysphagia, unspecified; K76.0 Fatty (change of) liver, not elsewhere classified; T50.1X5A Adverse effect of loop [high-ceiling] diuretics, initial encounter; K21.9 Gastro-esophageal reflux disease without esophagitis; I44.7 Left bundle-branch block, unspecified; F17.200 Nicotine dependence, unspecified, uncomplicated; E87.6 Hypokalemia; E86.1 Hypovolemia; D69.59 Other secondary thrombocytopenia; Z79.899 Other long term (current) drug therapy; E80.6 Other disorders of bilirubin metabolism; R45.1 Restlessness and agitation; Z53.09 Procedure and treatment not carried out because of other contraindication; K86.81 Exocrine pancreatic insufficiency
CPT/HCPCS: 36415; 36600; 49083; 71045; 71275; 74018; 74176; 74177; 76705; 80048; 80053; 80076; 80320; 81025; 82042; 82140; 82247; 82272; 82728; 82805; 83036; 83540; 83550; 83605; 83690; 83735; 83880; 84075; 84100; 84132; 84145; 84157; 84450; 84460; 84484; 85025; 85027; 85379; 85610; 85730; 86850; 86900; 86901; 86920; 87040; 87070; 87075; 87205; 87324; 87449; 87636; 89050; 93005; 93306; 93308; 94002; 94003; 94640; 94660; 94760; 96361; 96367; 96374; 96375; 96376; 99291